=== PATIENT | male | born 1950 | race Caucasian/White ===

== ENCOUNTER 2017-02-24 11:14 | Emergency (ER) | payer MEDICARE, OTHER ==
[~2017-02-24 11:14] MED LIST: ASPI81TA82 PO; ATOR40TA49 PO; HYDR-2768 PO; METF500 PO; METO50TA PO
[2017-02-24 11:21] VITALS: BP 190/83; PULSE 98; RESP 20; TEMP 98.5; O2SAT 97
--- NOTE | 2017-02-24 12:37 | PD ---
HPI Chief Complaint: Skin Problem Time Seen by Provider: 12:25 Travel History International Travel<30 days: No Contact w/Intl Traveler<30days: No Traveled to known affect area: No History of Present Illness HPI 67-year-old male with PMH of DM presents to the ED for evaluation of 1 week history of reddened, "lump" in the left groin. Patient states that it started out as a small pimple after he shaved his genital area. He states that he didn' t think anything about it but over time it is gotten worse. He tried to squeeze it a few times with no improvement of symptoms. He denies fever, chills , nausea, vomiting, dysuria, scrotal pain, perineal pain. He denies history of MRSA. He is never had anything like this before. PFSH Past Medical History Cardiac Catheterization: Yes High Cholesterol: Yes Chest Pain: Yes Coronary Artery Disease: Yes Diminished Hearing: No GERD: Yes Hypertension: Yes Myocardial Infarction: Yes (x2) Tetanus Vaccination: > 5 Years Influenza Vaccination: No Past Surgical History Coronary Artery Bypass Graft: Yes (bypass ?) Coronary Stent: Yes (x2) Social History Alcohol Use: No Tobacco Use: Yes (02/11 PPD) Substance Use: No Allergies-Medications (Allergen,Severity, Reaction): Coded Allergies: No Known Allergies (Verified Adverse Reaction, Unknown, 02/24/17) Reported Meds & Prescriptions Reported Meds & Active Scripts Active Keflex (Cephalexin) 500 Mg Cap 500 Mg PO Q8H Bactrim DS (Sulfamethoxazole-Trimethoprim) 800-160 Mg Tab 1 Tab PO BID Review of Systems Except as stated in HPI: all other systems reviewed are Neg Physical Exam Narrative GENERAL: Well-nourished, well-developed pleasant male in no acute distress. SKIN: Focused skin assessment warm/dry. SKIN: There is an indurated area in the left groin which measures about 2 cm in diameter. It is fluctuant but there is no pointing or drainage. There is a zone of inflammation around it but no lymphangitis. HEAD: Normocephalic. EYES: No scleral icterus. No injection or drainage. NECK: Supple, trachea midline. No JVD or lymphadenopathy. CARDIOVASCULAR: Regular rate and rhythm without murmurs, gallops, or rubs. RESPIRATORY: Breath sounds equal bilaterally. No accessory muscle use. GASTROINTESTINAL: Abdomen soft, non-tender, nondistended. MUSCULOSKELETAL: No cyanosis, or edema. GENITOURINARY: Circumcised. Testes descended bilaterally without evidence of rotation. No scrotal pain. No perineal pain. No lesions or erythema. No urethral discharge. BACK: Nontender without obvious deformity. No CVA tenderness. Data Data Last Documented VS Vital Signs Date Time Temp Pulse Resp B/P (MAP) Pulse Ox O2 Delivery O2 Flow Rate FiO2 02/24/17 12:18 16 02/24/17 11:21 98.5 98 190/83 (118) 97 Orders Orders Lidocaine 1% Inj (Xylocaine 1% Inj) (02/24/17 12:45) Abscess Culture And Gram Stain (02/24/17 12:37) Ed Discharge Order (02/24/17 13:29) [facility] Medical Decision Making Medical Screen Exam Complete: Yes Emergency Medical Condition: Yes Differential Diagnosis Furuncle versus carbuncle versus abscess versus cellulitis versus Catalina's gangrene other Narrative Course 67-year-old male with PMH of DM presents to the ED for evaluation of 1 week history of reddened, "lump" in the left groin. Patient states that it started out as a small pimple after he shaved his genital area. He denies history of MRSA. Vitals reviewed. Physical exam are consistent with abscess. I&D was performed. Please my procedure note for details. Patient is prescribed Bactrim and Keflex. He is instructed to take every pill until the antibiotics are all gone, use warm compresses to help relieve pain, OTC medications as needed. He is instructed to return to the ED in 2 days for packing removal, sooner for worsening symptoms, otherwise follow up with his primary care provider. He is stable and discharged home. Procedures Procedure Narrative INCISION AND DRAINAGE OF ABSCESS: The area was prepped and was sterilely draped. A subcutaneous wheal of 1 % Xylocaine with a total number 3 mL was used to anesthetize the area properly. A number 11 scalpel was used to make a 1.25-cm incision across the area of the abscess. The abscess was drained, complex loculations were broken down, and irrigated with normal saline. Cultures were obtained. Quarter inch iodoform packing was placed in the wound. Sterile dressing applied. Patient advised to have packing removed in two days. Diagnosis Primary Impression: Abscess Referrals: Primary Care Physician Patient Instructions: Abscess Incision and Drainage (DC), General Instructions Additional Instructions: Rest, hydrate. Do not change the dressing for 48 hours. Take the antibiotics as they are prescribed, even if your symptoms resolve. Utilize [id number] pain medications, as described on the label, as needed. Return to the ED in 2 days for wound recheck and packing removal. Return to the ED for any urgent or emergent medical condition. Med/Other Pt SpecificInfo: Prescription(s) given Scripts Cephalexin (Keflex) 500 Mg Cap 500 MG PO Q8H for Infection, #30 CAP 0 Refills Prov: Judy Nuñez MD 02/24/17 Sulfamethoxazole-Trimethoprim (Bactrim DS) 800-160 Mg Tab 1 TAB PO BID for Infection, #14 TAB 0 Refills Prov: Judy Nuñez MD 02/24/17 Disposition: 01 DISCHARGE HOME Condition: Stable Lisa Abernathy Feb 24, 2017 12:37
[2017-02-24] MEDS ORDERED: LIDOCAINE HCL 1% 20 ML VIAL INFIL ONE (12:45)
[2017-02-24] MEDS ORDERED: CEPH-460 PO (13:29)
[2017-02-24] MEDS ORDERED: BACT800T5 PO (13:29)
== END 2017-02-24 13:42 | disposition home or self-care (01) ==
LOC: PHEFT 11:14
DX: L02.214 Cutaneous abscess of groin (principal); B96.89 Other specified bacterial agents as the cause of diseases classified elsewhere; I10 Essential (primary) hypertension; E78.00 Pure hypercholesterolemia, unspecified; I25.10 Atherosclerotic heart disease of native coronary artery without angina pectoris; K21.9 Gastro-esophageal reflux disease without esophagitis; I25.2 Old myocardial infarction; E11.9 Type 2 diabetes mellitus without complications; F17.210 Nicotine dependence, cigarettes, uncomplicated; Z95.1 Presence of aortocoronary bypass graft; Z95.5 Presence of coronary angioplasty implant and graft
CPT/HCPCS: 10060; 10061; 86403; 87070; 87185; 87205

== ENCOUNTER 2017-02-26 12:28 | Emergency (ER) | payer MEDICARE ==
[~2017-02-26] VITALS: Ht 180.3 cm; Wt 73.7 kg
[~2017-02-26 12:28] MED LIST changes: -ASPI81TA82 PO; -ATOR40TA49 PO; +BACT800T5 PO; +CEPH-460 PO; -HYDR-2768 PO; -METF500 PO; -METO50TA PO
[2017-02-26 12:33] VITALS: BP 189/86; PULSE 90; RESP 18; TEMP 98.6; O2SAT 97
[2017-02-26] MEDS ORDERED: METR-1 PO (12:45)
[2017-02-26] MEDS ORDERED: CIPR-9 PO (12:45)
--- NOTE | 2017-02-26 12:49 | PD ---
HPI Chief Complaint: Skin Problem Time Seen by Provider: 12:39 Travel History International Travel<30 days: No Contact w/Intl Traveler<30days: No Traveled to known affect area: No History of Present Illness HPI 67-year-old male presents for wound recheck. He was seen here on August 24 with a left-sided scrotal abscess. Incision and drainage was performed. He was told to return today for wound recheck. He reports that the packing fell out when he was changing the bandages 2 days ago. He reports significant improvement in his symptoms. Denies fevers or chills. No other complaints. PFSH Past Medical History Cardiac Catheterization: Yes High Cholesterol: Yes Chest Pain: Yes Coronary Artery Disease: Yes Diminished Hearing: No GERD: Yes Hypertension: Yes Myocardial Infarction: Yes (x2) Past Surgical History Coronary Artery Bypass Graft: Yes (bypass ?) Coronary Stent: Yes (x2) Social History Alcohol Use: No Tobacco Use: Yes (/2 PPD) Substance Use: No Allergies-Medications (Allergen,Severity, Reaction): Coded Allergies: No Known Allergies (Verified Adverse Reaction, Unknown, 02/26/17) Reported Meds & Prescriptions Reported Meds & Active Scripts Active Flagyl (Metronidazole) 500 Mg Tab 500 Mg PO BID 7 Days Cipro (Ciprofloxacin HCl) 500 Mg Tab 500 Mg PO BID 7 Days Keflex (Cephalexin) 500 Mg Cap 500 Mg PO Q8H Bactrim DS (Sulfamethoxazole-Trimethoprim) 800-160 Mg Tab 1 Tab PO BID Review of Systems General / Constitutional: No: Fever, Chills Skin: Positive Other (positive for soft tissue swelling, pain, drainage) Physical Exam Narrative GENERAL: Well-nourished male in no acute distress SKIN: Warm and dry. CARDIOVASCULAR: Regular rate and rhythm. No murmur appreciated. RESPIRATORY: No accessory muscle use. Clear to auscultation. Breath sounds equal bilaterally. GASTROINTESTINAL: Abdomen soft, non-tender, nondistended. Hepatic and splenic margins not palpable. : There is no area of induration with incision wound noted on the medial proximal left scrotum. There is a little bit of yellow purulent drainage. Data Data Last Documented VS Vital Signs Date Time Temp Pulse Resp B/P (MAP) Pulse Ox O2 Delivery O2 Flow Rate FiO2 02/26/17 12:33 98.6 90 18 189/86 (120) 97 MDM Medical Decision Making Medical Screen Exam Complete: Yes Emergency Medical Condition: Yes Medical Record Reviewed: Yes Differential Diagnosis Wound recheck, cellulitis, abscess, fourniers gangrene Narrative Course The patient's symptoms are improving. It appears that the patient's initial wound culture report reveals anaerobic gram-negative rods. He was prescribed Bactrim and Keflex which will be discontinued. He will be discharged with Cipro and Flagyl. Discussed signs and symptoms that would warrant returning to the emergency room. Diagnosis Primary Impression: Encounter for wound re-check Additional Instructions: Quit taking the Bactrim and Keflex that you were prescribed 2 days ago. Take the new antibiotics as prescribed. Warm compresses 10-15 minutes at a time several times a day. Return for new or worsening symptoms. Med/Other Pt SpecificInfo: Prescription(s) given, Wound Care Scripts Metronidazole (Flagyl) 500 Mg Tab 500 MG PO BID for Infection for 7 Days, #14 TAB 0 Refills Prov: Christiano Marcelo MD 02/26/17 Ciprofloxacin (Cipro) 500 Mg Tab 500 MG PO BID for Infection for 7 Days, #14 TAB 0 Refills Prov: Christiano Marcelo MD 02/26/17 Disposition: 01 DISCHARGE HOME Condition: Stable Darío Strickland Feb 26, 2017 12:49
== END 2017-02-26 13:17 | disposition home or self-care (01) ==
LOC: PHEFT 12:28
DX: N49.2 Inflammatory disorders of scrotum (principal); E78.00 Pure hypercholesterolemia, unspecified; I10 Essential (primary) hypertension; I25.2 Old myocardial infarction; F17.200 Nicotine dependence, unspecified, uncomplicated; Z48.817 Encounter for surgical aftercare following surgery on the skin and subcutaneous tissue; Z86.79 Personal history of other diseases of the circulatory system; Z87.19 Personal history of other diseases of the digestive system
CPT/HCPCS: 99281

== ENCOUNTER 2017-04-21 15:26 | Inpatient (IN) | payer MEDICARE, MEDICAID ==
[~2017-04-21] VITALS: Ht 182.9 cm; Wt 73.0 kg
[~2017-04-21 15:26] MED LIST changes: +CIPR-9 PO; +METR-1 PO
[2017-04-21 16:27] VITALS: BP 156/73; PULSE 98; RESP 22; TEMP 99.1; O2SAT 97
[2017-04-21] MEDS ORDERED: SODIUM CHLOR 0.9% 1000 ML INJ 1,000 ML IV ONE (17:45)
[2017-04-21] MEDS ORDERED: SODIUM CHLORIDE 0.9% FLUSH 10 ML FLUSH IVF PRN (17:45)
[2017-04-21 17:53] VITALS: O2SAT 97
[2017-04-21 18:26] LABS: AUTOMATED NEUTROPHIL # 14.7 TH/MM3 (1.8-7.7); BASOPHIL % 0.2 % (0.0-2.0); EOSINOPHIL % 0.1 % (0.0-4.0); HEMATOCRIT 51.5 % (39.0-51.0); HEMOGLOBIN 15.7 GM/DL (13.0-17.0); LYMPH % 4.3 % (9.0-44.0); LYMPHOCYTE # 0.7 TH/MM3 (1.0-4.8); MEAN CELL VOLUME 98.2 FL (80.0-100.0); MEAN CORPUSCULAR HGB CONC 30.5 % (32.0-36.0); MEAN PLATELET VOLUME 10.2 FL (7.0-11.0); MONO % 5.3 % (0.0-8.0); MONOCYTE # 0.9 TH/MM3 (0-0.9); NEUT % 90.1 % (16.0-70.0); PLATELET COUNT 205 TH/MM3 (150-450); RED BLOOD COUNT 5.24 MIL/MM3 (4.50-5.90); RED CELL DISTRIBUTION WIDTH 15.3 % (11.6-17.2); WHITE BLOOD COUNT 16.3 TH/MM3 (4.0-11.0)
--- NOTE | 2017-04-21 18:29 | RADRPT ---
EXAM DATE/TIME: 04/21/2017 18:10 [facility] COMPARISON: No previous studies available for comparison. INDICATIONS : Chest pain. MEDICAL HISTORY : None. SURGICAL HISTORY : CABG. ENCOUNTER: Initial ACUITY: 1 day PAIN SCORE: Non-responsive. LOCATION: Bilateral chest FINDINGS: No infiltrate, effusion or pneumothorax demonstrated. Heart size within normal limits. Patient has had previous median sternotomy and CABG. CONCLUSION: No evidence of acute cardiopulmonary disease. Ash Mason MD on April 21, 2017 at 18:26 Board Certified Radiologist. This report was verified electronically.
--- NOTE | 2017-04-21 18:39 | RADRPT ---
EXAM DATE/TIME: 04/21/2017 18:29 [facility] COMPARISON: No previous studies available for comparison. INDICATIONS : Weakness RADIATION DOSE: 42.14 CTDIvol (mGy) MEDICAL HISTORY : Hypertension. Diabetes SURGICAL HISTORY : CABG ENCOUNTER: Initial ACUITY: 1 day PAIN SCALE: 6/10 LOCATION: cranial TECHNIQUE: Multiple contiguous axial images were obtained of the head. Using automated exposure control and adj ustment of the mA and/or kV according to patient size, radiation dose was kept as low as reasonably a chievable to obtain optimal diagnostic quality images. DICOM format image data is available electro nically for review and comparison. FINDINGS: CEREBRUM: The ventricles are normal for age. No evidence of midline shift, mass lesion, hemorrhage or acute in farction. No extra-axial fluid collections are seen. POSTERIOR FOSSA: The cerebellum and brainstem are intact. The 4th ventricle is midline. The cerebellopontine angle i s unremarkable. EXTRACRANIAL: The visualized portion of the orbits is intact. SKULL: The calvaria is intact. No evidence of skull fracture. CONCLUSION: Normal noncontrast head CT. Ash Mason MD on April 21, 2017 at 18:37 Board Certified Radiologist. This report was verified electronically.
--- NOTE | 2017-04-21 18:42 | PD ---
HPI Chief Complaint: General Weakness Time Seen by Provider: 17:40 Travel History International Travel<30 days: No Contact w/Intl Traveler<30days: No Traveled to known affect area: No History of Present Illness HPI 67 YO M presents to the ED via EMS for evaluation of 1 week history of decreased appetite and decreased thirst. The patient states that he has become weak in the last few days. He endorses "a little" SOB. He states that his mouth feels dry, despite increased fluid intake. He is confused, alert only to self. He denies swallowing difficulties. He denies headache, CP, palpitations, abd pain, N/V, dysuria, changes in bowel habits. PFSH Past Medical History Cardiac Catheterization: Yes High Cholesterol: Yes Chest Pain: Yes Coronary Artery Disease: Yes Diabetes: Yes Patient Takes Glucophage: No Diminished Hearing: No GERD: Yes Hypertension: Yes Immunizations Current: Yes Myocardial Infarction: Yes (x2) Past Surgical History Coronary Artery Bypass Graft: Yes Coronary Stent: Yes (x2) Other Surgery: No Social History Alcohol Use: No Tobacco Use: Yes (1/2 PPD) Substance Use: No Allergies-Medications (Allergen,Severity, Reaction): Coded Allergies: No Known Allergies (Verified Adverse Reaction, Unknown, 04/21/17) Reported Meds & Prescriptions Reported Meds & Active Scripts Active Flagyl (Metronidazole) 500 Mg Tab 500 Mg PO BID 7 Days Cipro (Ciprofloxacin HCl) 500 Mg Tab 500 Mg PO BID 7 Days Keflex (Cephalexin) 500 Mg Cap 500 Mg PO Q8H Bactrim DS (Sulfamethoxazole-Trimethoprim) 800-160 Mg Tab 1 Tab PO BID Review of Systems ROS Limitations: Altered Mental Status, Other: Except as stated in HPI: all other systems reviewed are Neg Physical Exam Exam Limitations: Altered Mental Status Narrative GENERAL: Well-nourished, well-developed male in no acute distress. SKIN: Focused skin assessment warm/dry. HEAD: Normocephalic. EYES: No scleral icterus. No injection or drainage. NECK: Supple, trachea midline. No JVD or lymphadenopathy. CARDIOVASCULAR: Regular rate and rhythm without murmurs, gallops, or rubs. RESPIRATORY: Breath sounds clear and equal bilaterally. No accessory muscle use. GASTROINTESTINAL: Abdomen soft, non-tender, nondistended. Hypoactive bowel sounds. MUSCULOSKELETAL: No cyanosis, or edema. Moves extremities spontaneously. NEUROLOGICAL: Awake, confused. Alert to self only. Does not follow commands. Slurred speech. BACK: Nontender without obvious deformity. No CVA tenderness. Data Data Last Documented VS Vital Signs Date Time Temp Pulse Resp B/P (MAP) Pulse Ox O2 Delivery O2 Flow Rate FiO2 04/21/17 20:13 102 20 202/85 (124) 100 Nasal Cannula 2.00 04/21/17 16:27 99.1 Orders Orders Electrocardiogram (04/21/17 17:40) Complete Blood Count With Diff (04/21/17 17:40) Comprehensive Metabolic Panel (04/21/17 17:40) Magnesium (Mg) (04/21/17 17:40) B-Type Natriuretic Peptide (04/21/17 17:40) Ckmb (Isoenzyme) Profile (04/21/17 17:40) Troponin I (04/21/17 17:40) Act Partial Throm Time (Ptt) (04/21/17 17:40) Prothrombin Time / Inr (Pt) (04/21/17 17:40) Chest, Single Ap (04/21/17 17:40) Sodium Chlor 0.9% 1000 Ml Inj (Ns 1000 M (04/21/17 17:45) Ct Brain W/O Iv Contrast(Rout) (04/21/17 ) Beta Hydroxybutyrate (Acetone) (04/21/17 17:40) CKMB (04/21/17 18:10) CKMB% (04/21/17 18:10) Blood Gas Venous (Vbg) (04/21/17 19:28) Insulin Human Regular Inj (Novolin R Inj (04/21/17 19:45) Insulin Regular (Iv Infusion) (Novolin R (04/21/17 21:00) Potassium Chlor 20 Meq Premix (Kcl 20 Me (04/21/17 19:45) Potassium Chlor 20 Meq Premix (Kcl 20 Me (04/21/17 19:45) Potassium Chlor 20 Meq Premix (Kcl 20 Me (04/21/17 19:45) Potassium Chlor 20 Meq Premix (Kcl 20 Me (04/21/17 19:45) Sodium Chlor 0.9% 1000 Ml Inj (Ns 1000 M (04/21/17 19:59) Dext 5%-Nacl 0.9% 1000 Ml Inj (D5w-Ns 10 (04/21/17 19:59) Hydralazine Inj (Apresoline Inj) (04/21/17 20:15) Restraints Non-Violent MARICARMEN.Q3H (04/21/17 20:09) Admit Order (Ed Use Only) (04/21/17 20:22) Labs Laboratory Tests Test 04/21/17 18:10 White Blood Count 16.3 TH/MM3 Red Blood Count 5.24 MIL/MM3 Hemoglobin 15.7 GM/DL Hematocrit 51.5 % Mean Corpuscular Volume 98.2 FL Mean Corpuscular Hemoglobin 30.0 PG Mean Corpuscular Hemoglobin Concent 30.5 % Red Cell Distribution Width 15.3 % Platelet Count 205 TH/MM3 Mean Platelet Volume 10.2 FL Neutrophils (%) (Auto) 90.1 % Lymphocytes (%) (Auto) 4.3 % Monocytes (%) (Auto) 5.3 % Eosinophils (%) (Auto) 0.1 % Basophils (%) (Auto) 0.2 % Neutrophils # (Auto) 14.7 TH/MM3 Lymphocytes # (Auto) 0.7 TH/MM3 Monocytes # (Auto) 0.9 TH/MM3 Eosinophils # (Auto) 0.0 TH/MM3 Basophils # (Auto) 0.0 TH/MM3 CBC Comment DIFF FINAL Differential Comment Prothrombin Time 11.0 SEC Prothromb Time International Ratio 1.1 RATIO Activated Partial Thromboplast Time 19.5 SEC Blood Urea Nitrogen 109 MG/DL Creatinine 3.46 MG/DL Random Glucose 992 MG/DL Total Protein 6.3 GM/DL Albumin 2.9 GM/DL Calcium Level 8.6 MG/DL Magnesium Level 3.8 MG/DL Alkaline Phosphatase 134 U/L Aspartate Amino Transf (AST/SGOT) 12 U/L Alanine Aminotransferase (ALT/SGPT) 16 U/L Total Bilirubin 0.3 MG/DL Sodium Level 153 MEQ/L Potassium Level 3.8 MEQ/L Chloride Level 111 MEQ/L Carbon Dioxide Level 13.4 MEQ/L Anion Gap 29 MEQ/L Estimat Glomerular Filtration Rate 18 ML/MIN Total Creatine Kinase 299 U/L Creatine Kinase MB 4.8 NG/ML Troponin I 0.04 NG/ML B-Type Natriuretic Peptide 41 PG/ML B-Hydroxybutyrate 11.90 MMOL/L MDM Medical Decision Making Medical Screen Exam Complete: Yes Emergency Medical Condition: Yes Differential Diagnosis DKA versus HHUS versus metabolic derangement versus other Narrative Course 67 YO M presents to the ED via EMS for evaluation of 1 week history of decreased appetite and decreased thirst. The patient states that he has become weak in the last few days. He endorses "a little" SOB. He states that his mouth feels dry, despite increased fluid intake. He is confused, alert only to self. He denies swallowing difficulties. He denies headache, CP, palpitations, abd pain, N/V, dysuria, changes in bowel habits. Temp 99.1, pulse 98, BP 153/73, O2 sats 97% on room air on presentation. On exam this is a thin male in no acute distress. He is unable to follow commands though he does answer questions appropriately. Speech is slurred. No appreciable M/R/G. Chest CTAB. Abdomen soft and nontender. IV was established. Patient was administered 1 L normal saline. Montalvo catheter was inserted. The patient's came to the bedside and states that he has been drinking a lot of fluid and somewhat confused lately. She states that he does not regularly see a physician. She states that he does not take metformin or any other glucose controlling medications EKG rate 92, sinus rhythm. WA interval 154, QRS 105, QTC 449 ms. Normal axis. No acute ST changes. Reviewed by Dr. Joya. CXR: No evidence of acute cardiopulmonary disease per radiology read. Cardiac enzymes: CK-MB 4.8. Troponin 0.04. CBC: WBC 16.3. Hemoglobin 15.7. CMP: BUN 109, creatinine 3.46. Glucose 992. Potassium 3.8. Magnesium 3.8. Beta hydroxybutyrate 11.9. CT brain: Negative per radiology read. VBG: PH 7.194. Bicarbonate 12.5. PCO2 33.9. Patient was administered second liter normal saline. Potassium replacement was initiated. Patient was administered 7 units of insulin bolus and insulin drip was initiated. On recheck the patient has pulled his Montalvo out. Will place the patient in soft restraints and replace the Montalvo. Systolic BP 190 on recheck. Patient was administered 10 mg IV hydralazine. Plan to admit to the CICU. I spoke with the residents who agreed to accept the patient to the medicine service under Dr. Nadira Mckeon. Please see medicine notes for disposition. Lisa Abernathy Apr 21, 2017 18:42
[2017-04-21 18:47] LABS: INTERNATIONAL NORMALIZED RATIO 1.1 RATIO
[2017-04-21 19:12] LABS: ALBUMIN 2.9 GM/DL (3.4-5.0); ALT (GPT) 16 U/L (12-78); AST (GOT) 12 U/L (15-37); BICARBONATE 13.4 MEQ/L (21.0-32.0); BLOOD UREA NITROGEN 109 MG/DL (7-18); CALCIUM 8.6 MG/DL (8.5-10.1); CHLORIDE 111 MEQ/L (98-107); CREATININE 3.46 MG/DL (0.60-1.30); GLOMERULAR FILTRATION RATE 18 ML/MIN (>89); MAGNESIUM 3.8 MG/DL (1.5-2.5); SODIUM (NA) 153 MEQ/L (136-145); TOTAL BILIRUBIN ADULT 0.3 MG/DL (0.2-1.0); TOTAL PROTEIN 6.3 GM/DL (6.4-8.2)
[2017-04-21 19:16] LABS: GLUCOSE,RANDOM 992 MG/DL (74-106)
[2017-04-21 19:20] LABS: ALKALINE PHOSPHATASE 134 U/L (45-117); TROPONIN I 0.04 NG/ML (0.02-0.05)
[2017-04-21] MEDS ORDERED: POTASSIUM CHLOR 20 MEQ PREMIX 100 ML IV PRN ×13 (19:45→21:15)
[2017-04-21] MEDS ORDERED: INSULIN HUMAN REGULAR 1,000 UNITS/10 ML VIAL IV PUSH ONE ×2 (19:45)
[2017-04-21] MEDS ORDERED: INSULIN REGULAR (IV INFUSION) 100 UNITS in SODIUM CHLORIDE 0.9% INJ 99 ML IV PRN ×4 (19:45→21:15)
[2017-04-21] MEDS: DEXT 5%-NACL 0.9% 1000 ML INJ 1,000 ML IV SCH ×2 (19:59→21:01)
[2017-04-21] MEDS: SODIUM CHLOR 0.9% 1000 ML INJ 1,000 ML IV SCH ×2 (19:59→23:59)
[2017-04-21 20:13] VITALS: BP 202/85; PULSE 102; RESP 20; O2SAT 100
[2017-04-21] MEDS ORDERED: hydrALAZINE HCL 20 MG/ML VIAL IV PUSH ONE (20:15)
--- NOTE | 2017-04-21 20:40 | HHI.HP ---
HPI Service Family Medicine Primary Care Physician Unknown Admission Diagnosis HHS Diagnoses: International Travel<30 Days: No Contact w/Intl Traveler<30days: No Known Affected Area: No History of Present Illness Patient is a 67-year-old Male brought in by EMS with 1 wk history of decreased appetite according to ED. No family member present at bedside. Patient alert to self, able to state he is in [place] but not oriented to year and not able to provide adequate history. He was to answer yes or no to certain questions. He answered to "no" when asked if he was in any kind of pain. He keeps repeating he wants water. In the ED the patient received 2 boluses of normal saline, insulin bolus 1 and hydralazine for elevated BP. Review of Systems ROS Limitations: Clinical Condition, Altered Mental Status Respiratory: DENIES: Shortness of breath Cardiovascular: DENIES: Chest pain Musculoskeletal: DENIES: Back pain Neurologic: DENIES: Localized weakness, Tremor Past Family Social History Past Medical History DM HTN Past Surgical History CABG with 2 stent placement Reported Medications Reported Meds & Active Scripts Active Flagyl (Metronidazole) 500 Mg Tab 500 Mg PO BID 7 Days Cipro (Ciprofloxacin HCl) 500 Mg Tab 500 Mg PO BID 7 Days Keflex (Cephalexin) 500 Mg Cap 500 Mg PO Q8H Bactrim DS (Sulfamethoxazole-Trimethoprim) 800-160 Mg Tab 1 Tab PO BID Allergies: Coded Allergies: No Known Allergies (Verified Adverse Reaction, Unknown, 04/21/17) Family History limited due to clinical condition. Social History per chart review alcohol and illicit drug use: denies smokin/2 PPD Physical Exam Vital Signs Vital Signs Date Time Temp Pulse Resp B/P (MAP) Pulse Ox O2 Delivery O2 Flow Rate FiO2 04/21/17 20:13 102 20 202/85 (124) 100 Nasal Cannula 2.00 04/21/17 17:53 97 Nasal Cannula 2.00 04/21/17 16:27 99.1 98 22 156/73 (100) 97 Physical Exam GENERAL: This is a cachectic male, laying in bed, NAD. SKIN: No rashes, ecchymoses or lesions. Cool and dry. No sacral ulcers noted. HEAD: Atraumatic. Normocephalic. EYES: Pupils equal round and reactive. Extraocular motions intact. No scleral icterus. No injection or drainage. ENT: Nose without bleeding, purulent drainage or septal hematoma. Throat without erythema, tonsillar hypertrophy or exudate. Uvula midline. Airway patent. Mucus membrane dry. NECK: Trachea midline. No JVD or lymphadenopathy. Supple, nontender, no meningeal signs. CARDIOVASCULAR: Regular rate and rhythm without murmurs, gallops, or rubs. RESPIRATORY: Clear to auscultation. Breath sounds equal bilaterally. No wheezes , rales, or rhonchi. GASTROINTESTINAL: Abdomen soft, non-tender, nondistended. No hepato-splenomegaly , or palpable masses. No guarding. MUSCULOSKELETAL: Extremities without clubbing, cyanosis, or edema. No joint tenderness, effusion, or edema noted. No calf tenderness. Negative Homans sign bilaterally. NEUROLOGICAL: Cranial nerves II through XII intact. Motor and sensory grossly within normal limits. Laboratory Laboratory Tests Test 04/21/17 18:10 White Blood Count 16.3 Red Blood Count 5.24 Hemoglobin 15.7 Hematocrit 51.5 Mean Corpuscular Volume 98.2 Mean Corpuscular Hemoglobin 30.0 Mean Corpuscular Hemoglobin Concent 30.5 Red Cell Distribution Width 15.3 Platelet Count 205 Mean Platelet Volume 10.2 Neutrophils (%) (Auto) 90.1 Lymphocytes (%) (Auto) 4.3 Monocytes (%) (Auto) 5.3 Eosinophils (%) (Auto) 0.1 Basophils (%) (Auto) 0.2 Neutrophils # (Auto) 14.7 Lymphocytes # (Auto) 0.7 Monocytes # (Auto) 0.9 Eosinophils # (Auto) 0.0 Basophils # (Auto) 0.0 CBC Comment DIFF FINAL Differential Comment Prothrombin Time 11.0 Prothromb Time International Ratio 1.1 Activated Partial Thromboplast Time 19.5 Blood Urea Nitrogen 109 Creatinine 3.46 Random Glucose 992 Total Protein 6.3 Albumin 2.9 Calcium Level 8.6 Magnesium Level 3.8 Alkaline Phosphatase 134 Aspartate Amino Transf (AST/SGOT) 12 Alanine Aminotransferase (ALT/SGPT) 16 Total Bilirubin 0.3 Sodium Level 153 Potassium Level 3.8 Chloride Level 111 Carbon Dioxide Level 13.4 Anion Gap 29 Estimat Glomerular Filtration Rate 18 Total Creatine Kinase 299 Creatine Kinase MB 4.8 Troponin I 0.04 B-Type Natriuretic Peptide 41 B-Hydroxybutyrate 11.90 Result Diagram: 3/12/18 1810 3/12/18 1810 Imaging Last Impressions Chest X-Ray 04/21/17 1740 Signed Impressions: Service Date/Time: Friday, April 21, 2017 18:10 - CONCLUSION: No evidence of acute cardiopulmonary disease. Ash Mason MD Head CT 04/21/17 0000 Signed Impressions: Service Date/Time: Friday, April 21, 2017 18:29 - CONCLUSION: Normal noncontrast head CT. MD Aman Calderon VTE Risk Assessment Aman VTE Risk Assessment: Mod/High Risk (score >= 2) VTE Pharm Contraindication: will hold with for 24hrs until hematuria clears after pt removed boyer traumatically Caprini Risk Assessment Model Point Value = 1 Point Value = 2 Point Value = 3 Point Value = 5 Age 41-60 Minor surgery BMI > 25 kg/m2 Swollen legs Varicose veins or History of unexplained or recurrent spontaneous Oral contraceptives or hormone replacement Sepsis (< 1 month) Serious lung disease, including pneumonia (< 1 month) Abnormal pulmonary function Acute myocardial infarction Congestive heart failure (< 1 month) History of inflammatory bowel disease Medical patient at bed rest Age 61-74 Arthroscopic surgery Major open surgery (> 45 min) Laparoscopic surgery (> 45 min) Malignancy Confined to bed (> 72 hours) Immobilizing plaster cast Central venous access Age >= 75 History of VTE Family history of VTE Factor V Leiden Prothrombin [id number] Lupus anticoagulant Anticardiolipin antibodies Elevated serum homocysteine Heparin-induced thrombocytopenia Other congenital or acquired thrombophilia Stroke (< 1 month) Elective arthroplasty Hip, pelvis, or leg fracture Acute spinal cord injury (< 1 month) Prophylaxis Regimen Total Risk Factor Score Risk Level Prophylaxis Regimen 0-1 Low Early ambulation 2 Moderate Order ONE of the following: *Sequential Compression Device (SCD) *Heparin 5000 units SQ BID 3-4 Higher Order ONE of the following medications: *Heparin 5000 units SQ TID *Enoxaparin/Lovenox 40 mg SQ daily (WT < 150 kg, CrCl > 30 mL/min) *Enoxaparin/Lovenox 30 mg SQ daily (WT < 150 kg, CrCl > 10-29 mL/min) *Enoxaparin/Lovenox 30 mg SQ BID (WT < 150 kg, CrCl > 30 mL/min) AND/OR *Sequential Compression Device (SCD) 5 or more Highest Order ONE of the following medications: *Heparin 5000 units SQ TID (Preferred with Epidurals) *Enoxaparin/Lovenox 40 mg SQ daily (WT < 150 kg, CrCl > 30 mL/min) *Enoxaparin/Lovenox 30 mg SQ daily (WT < 150 kg, CrCl > 10-29 mL/min) *Enoxaparin/Lovenox 30 mg SQ BID (WT < 150 kg, CrCl > 30 mL/min) AND *Sequential Compression Device (SCD) Assessment and Plan Assessment and Plan Patient is 67 year old Male with PMHx of HTN and DM presenting to ED via EVAC due to 1 wk hx of decreased po intake. Patient found to be altered, hypertensive with blood glucose greater than 900, elevated anion gap of 29, beta hydroxy of 11.9. Patient admitted to management of DKA. Discussed Condition With SDW Dr. Hernandez WDW Dr. Mckeon Problem List: (1) DKA (diabetic ketoacidoses) ICD Codes: E13.10 - Other specified diabetes mellitus with ketoacidosis without coma Status: Acute Plan: Patient found to have elevated blood sugar >900, anion gap 29-, Beta- hydroxybutyrate-11.9 Patient with altered mental status due to medical condition. Denies CP or pain. O2 saturations of 100% stable on 3 L NC. Afebrile with leukocytosis (WBC 16.3). In the ED the patient received 2 boluses of normal saline, insulin bolus 1 and hydralazine for elevated BP. EKG: Sinus rhythm, left atrial enlargement and left ventricular hypertrophy. CXR: no acute disease Head CT: Normal Initial VBG: pH 7.19, pCO2 34, pO2 55, HCO3 13 -c/w IVF hydration, patient placed on insulin drip -Neuro checks, telemetry -Bedside glucose checks -monitor I/Os -Plan to transition patient to diabetic diet once anion gap has closed. -f/u serial electrolyte levels, anion gap, Beta-hydroxybutyrate -f/u repeat VBG -f/u UA, alcohol level, UDS -f/u am labs (2) Diabetes mellitus ICD Codes: E11.9 - Diabetes mellitus Status: Chronic Plan: -f/u A1c -see plan above (3) Hypertension ICD Codes: I10 - Hypertension Status: Acute Plan: Patient received hydralazine 10mg IV x1 in the ED with appropriate response. Patient denies taking medication for his HTN -hydralazine PRN per HTN protocol SBP>= 180/ DBP >= 100 -continue to monitor BP and consider adding medication for HTN management terminal carman (4) Boyer catheter status ICD Codes: Z92.89 - Personal history of other medical treatment Status: Acute Plan: Patient traumatically pulled out boyer catheter resulting in hematuria. -will continue to monitor -hold of lovenox/heparin DVT ppx for 24hrs until resolution of hematuria (5) Nutrition, metabolism, and development symptoms ICD Codes: R63.8 - Other symptoms and signs concerning food and fluid intake Plan: Fluids: s/p 2L NS fluid bolus in the ED, c/w IVF NS 0.9% @ 250mls/hr Electrolyte: continue to monitor, replete as needed Nutrition: NPO until resolution on DKA DVT ppx: SCDs Physician Certification 2 Midnight Certification Type: Admission for Inpatient Services Order for Inpatient Services The services are ordered in accordance with Medicare regulations or non- Medicare payer requirements, as applicable. In the case of services not specified as inpatient-only, they are appropriately provided as inpatient services in accordance with the 2-midnight benchmark. Estimated LOS (days): 3 days is the estimated time the patient will need to remain in the hospital, assuming treatment plan goals are met and no additional complications. Post-Hospital Plan: Amanda Hilton MD, R1 Apr 21, 2017 20:40
[2017-04-21] MEDS ORDERED: SODIUM CHLORIDE 0.9% FLUSH 10 ML FLUSH IV FLUSH PRN (20:45)
--- NOTE | 2017-04-21 20:56 | PD ---
Physical Exam Narrative I, Dr. Joya, have reviewed the advance practice practitioner's documentation and am in agreement, met with the patient face to face, made the diagnosis, and the medical decision making was done by me. *My assessment and Findings: DKA vs. HHOC vs. dehydration 67yo M with DM noncompliant with medication here with increase thirst and not feeling well. Pt has Kussmaul breathing and appears dehydrated. Pt given NS IVF x2. Labs reviewed, leukocytosis at 16.3. Glucose elevated at 992. Hypernatremia at 153 secondary to dehydration. Anion gap increased at 29 with CO2 at 13.4. BUN/creatinine at 109/3.46. This is new for patient. Troponin negative. Pt started on insulin drip and potassium replacement. K is 3.8. b- Hydroxybutrate is elevated at 11.90. CXR negative. CT brain negative. Pt is hypertensive, hydralazine given. Pt also have blood in his meatus after he pullled out his boyer. Pt admitted to resident physician's service. Data Data Last Documented VS Vital Signs Date Time Temp Pulse Resp B/P (MAP) Pulse Ox O2 Delivery O2 Flow Rate FiO2 04/21/17 20:13 102 20 202/85 (124) 100 Nasal Cannula 2.00 04/21/17 16:27 99.1 Orders Orders Electrocardiogram (04/21/17 17:40) Complete Blood Count With Diff (04/21/17 17:40) Comprehensive Metabolic Panel (04/21/17 17:40) Magnesium (Mg) (04/21/17 17:40) B-Type Natriuretic Peptide (04/21/17 17:40) Ckmb (Isoenzyme) Profile (04/21/17 17:40) Troponin I (04/21/17 17:40) Act Partial Throm Time (Ptt) (04/21/17 17:40) Prothrombin Time / Inr (Pt) (04/21/17 17:40) Chest, Single Ap (04/21/17 17:40) Sodium Chlor 0.9% 1000 Ml Inj (Ns 1000 M (04/21/17 17:45) Ct Brain W/O Iv Contrast(Rout) (04/21/17 ) Beta Hydroxybutyrate (Acetone) (04/21/17 17:40) CKMB (04/21/17 18:10) CKMB% (04/21/17 18:10) Blood Gas Venous (Vbg) (04/21/17 19:28) Insulin Human Regular Inj (Novolin R Inj (04/21/17 19:45) Insulin Regular (Iv Infusion) (Novolin R (04/21/17 21:00) Potassium Chlor 20 Meq Premix (Kcl 20 Me (04/21/17 19:45) Potassium Chlor 20 Meq Premix (Kcl 20 Me (04/21/17 19:45) Potassium Chlor 20 Meq Premix (Kcl 20 Me (04/21/17 19:45) Potassium Chlor 20 Meq Premix (Kcl 20 Me (04/21/17 19:45) Sodium Chlor 0.9% 1000 Ml Inj (Ns 1000 M (04/21/17 19:59) Dext 5%-Nacl 0.9% 1000 Ml Inj (D5w-Ns 10 (04/21/17 19:59) Hydralazine Inj (Apresoline Inj) (04/21/17 20:15) Restraints Non-Violent MARICARMEN.Q3H (04/21/17 20:09) Admit Order (Ed Use Only) (04/21/17 20:22) Labs Laboratory Tests Test 04/21/17 18:10 White Blood Count 16.3 TH/MM3 Red Blood Count 5.24 MIL/MM3 Hemoglobin 15.7 GM/DL Hematocrit 51.5 % Mean Corpuscular Volume 98.2 FL Mean Corpuscular Hemoglobin 30.0 PG Mean Corpuscular Hemoglobin Concent 30.5 % Red Cell Distribution Width 15.3 % Platelet Count 205 TH/MM3 Mean Platelet Volume 10.2 FL Neutrophils (%) (Auto) 90.1 % Lymphocytes (%) (Auto) 4.3 % Monocytes (%) (Auto) 5.3 % Eosinophils (%) (Auto) 0.1 % Basophils (%) (Auto) 0.2 % Neutrophils # (Auto) 14.7 TH/MM3 Lymphocytes # (Auto) 0.7 TH/MM3 Monocytes # (Auto) 0.9 TH/MM3 Eosinophils # (Auto) 0.0 TH/MM3 Basophils # (Auto) 0.0 TH/MM3 CBC Comment DIFF FINAL Differential Comment Prothrombin Time 11.0 SEC Prothromb Time International Ratio 1.1 RATIO Activated Partial Thromboplast Time 19.5 SEC Blood Urea Nitrogen 109 MG/DL Creatinine 3.46 MG/DL Random Glucose 992 MG/DL Total Protein 6.3 GM/DL Albumin 2.9 GM/DL Calcium Level 8.6 MG/DL Magnesium Level 3.8 MG/DL Alkaline Phosphatase 134 U/L Aspartate Amino Transf (AST/SGOT) 12 U/L Alanine Aminotransferase (ALT/SGPT) 16 U/L Total Bilirubin 0.3 MG/DL Sodium Level 153 MEQ/L Potassium Level 3.8 MEQ/L Chloride Level 111 MEQ/L Carbon Dioxide Level 13.4 MEQ/L Anion Gap 29 MEQ/L Estimat Glomerular Filtration Rate 18 ML/MIN Total Creatine Kinase 299 U/L Creatine Kinase MB 4.8 NG/ML Troponin I 0.04 NG/ML B-Type Natriuretic Peptide 41 PG/ML B-Hydroxybutyrate 11.90 MMOL/L [facility] Supervised Visit with ALICE: Yes Critical Care Narrative Aggregate critical care time was 45 minutes. Time to perform other separately billable procedures was not included in the critical care time. My time did not include minutes spent treating any other patients simultaneously or on activities that did not directly contribute to the patient's treatment. The services I provided to this patient were to treat and/or prevent clinically significant deterioration that could result in: cardiovascular collapse or . I provided critical care services requiring my management, as noted below: Chart data review, documentation time, medication orders and management, vital sign assessments/reviewing monitor data, ordering and reviewing lab tests, ordering and interpreting/reviewing x-rays and diagnostic studies, care of the patient and discussion of the patient with the admitting physicians. Diagnosis Primary Impression: DKA (diabetic ketoacidoses) Laurita Joya DO Apr 21, 2017 20:56
[2017-04-21] MEDS: SODIUM CHLORIDE 0.9% FLUSH 10 ML FLUSH IV FLUSH SCH (21:00)
[2017-04-21 21:12] VITALS: BP 175/74; PULSE 97; RESP 18; O2SAT 100
[2017-04-21] MEDS ORDERED: MISCELLANEOUS NURSING INFORMATION XX SCH (21:15)
[2017-04-21] MEDS ORDERED: CHLORHEXIDINE GLUCONATE 2 % 1 PACK (2 CLOTHS) TOP PRN (21:15)
[2017-04-21] MEDS ORDERED: SODIUM BICARBONATE 8.4% SOLN 50 MEQ/50 ML VIAL IV PUSH PRN ×2 (21:15)
[2017-04-21] MEDS ORDERED: SODIUM PHOSPHATE INJ 15 MMOL in SODIUM CHLORIDE 0.9% INJ 100 ML IV PRN (21:15)
[2017-04-21] MEDS ORDERED: POTASSIUM CHLOR 40 MEQ PREMIX 100 ML IV PRN ×2 (21:15)
[2017-04-21 23:00] VITALS: BP 159/70; PULSE 102; PULSE 99; RESP 22; TEMP 96.3; O2SAT 96
[2017-04-22] VITALS (15 sets, daily range): BP systolic 145–189; BP diastolic 66–82; PULSE 68–107; RESP 16–26; TEMP 97–97.9; O2SAT 97–99
[2017-04-22] MEDS: SODIUM CHLOR 0.9% 1000 ML INJ 1,000 ML IV SCH ×5 (00:41→09:01)
[2017-04-22] MEDS: DEXT 5%-NACL 0.9% 1000 ML INJ 1,000 ML IV SCH ×6 (00:59→12:01)
[2017-04-22 02:31] LABS: BICARBONATE 20.4 MEQ/L (21.0-32.0); CALCIUM 8.2 MG/DL (8.5-10.1); CREATININE 3.42 MG/DL (0.60-1.30); PHOSPHORUS 4.7 MG/DL (2.5-4.9)
[2017-04-22] MEDS: POTASSIUM CHLOR 20 MEQ PREMIX 100 ML IV PRN ×3 (02:48→06:19)
[2017-04-22] MEDS: hydrALAZINE HCL 20 MG/ML VIAL IV PUSH PRN (03:18)
[2017-04-22] MEDS: CHLORHEXIDINE GLUCONATE 2 % 1 PACK (2 CLOTHS) TOP SCH ×2 (04:00→22:48)
[2017-04-22] MEDS: SODIUM CHLORIDE 0.9% FLUSH 10 ML FLUSH IV FLUSH SCH ×2 (09:00→20:28)
[2017-04-22] MEDS: FAMOTIDINE 20 MG/2 ML VIAL IV PUSH SCH ×2 (09:00→20:29)
--- NOTE | 2017-04-22 12:25 | HHI.FPPN ---
Subjective Remarks No acute events overnight. Patient states he was dizzy overnight and had some abdominal pain. Patient was oriented x3. (Mango Cheung MD R1) Objective Vitals Vital Signs Date Time Temp Pulse Resp B/P (MAP) Pulse Ox O2 Delivery O2 Flow Rate FiO2 04/22/17 06:00 Nasal Cannula 2.00 04/22/17 06:00 98 04/22/17 04:00 104 04/22/17 03:00 107 26 180/78 (112) 98 04/22/17 02:00 104 04/22/17 00:00 102 04/22/17 00:00 Nasal Cannula 2.00 04/21/17 23:00 96.3 102 22 159/70 (99) 96 04/21/17 23:00 99 04/21/17 21:12 97 18 175/74 (107) 100 Nasal Cannula 2.00 04/21/17 20:13 102 20 202/85 (124) 100 Nasal Cannula 2.00 04/21/17 17:53 97 Nasal Cannula 2.00 04/21/17 16:27 99.1 98 22 156/73 (100) 97 I/O 04/21/17 04/21/17 04/21/17 04/22/17 04/22/17 04/22/17 07:00 15:00 23:00 07:00 15:00 23:00 Intake Total 2240 ml 1290 ml Output Total 500 ml Balance 2240 ml 790 ml Intake Oral 240 ml 240 ml IV Total 2000 ml 1050 ml Output Urine Total 500 ml (Mango Cheung MD R1) Result Diagram: 04/21/17 1810 04/22/17 0142 Imaging Last 48 hours Impressions Chest X-Ray 04/21/17 1740 Signed Impressions: Service Date/Time: Friday, April 21, 2017 18:10 - CONCLUSION: No evidence of acute cardiopulmonary disease. Ash Mason MD Head CT 04/21/17 0000 Signed Impressions: Service Date/Time: Friday, April 21, 2017 18:29 - CONCLUSION: Normal noncontrast head CT. Ash Mason MD Objective Remarks GENERAL: This is a cachectic male, laying in bed, NAD. SKIN: No rashes, ecchymoses or lesions. Cool and dry. No sacral ulcers noted. HEAD: Atraumatic. Normocephalic. EYES: Pupils equal round and reactive. Extraocular motions intact. No scleral icterus. No injection or drainage. ENT: Nose without bleeding, purulent drainage or septal hematoma. Throat without erythema, tonsillar hypertrophy or exudate. Uvula midline. Airway patent. NECK: Trachea midline. No JVD or lymphadenopathy. Supple, nontender, no meningeal signs. CARDIOVASCULAR: Regular rate and rhythm without murmurs, gallops, or rubs. RESPIRATORY: Clear to auscultation. Breath sounds equal bilaterally. No wheezes , rales, or rhonchi. GASTROINTESTINAL: Abdomen soft, non-tender, nondistended. No hepato-splenomegaly , or palpable masses. No guarding. MUSCULOSKELETAL: Extremities without clubbing, cyanosis, or edema. R leg is noticeably smaller compared to the L. R lower leg is fixed in an extended position with constant muscle contraction. Unable to manipulate R ankle due to contraction. NEUROLOGICAL: Cranial nerves II through XII intact. (Mango Cheung MD R1) A/P Assessment and Plan Patient is 67 year old Male with PMHx of HTN and DM presented to ED via EVAC due to 1 wk hx of decreased po intake. Patient found to be altered, hypertensive with blood glucose greater than 900, elevated anion gap of 29, beta hydroxy of 11.9. Patient admitted to management of DKA. Currently still requiring insulin drip but anion gap is closing, blood glucose has decreased into the 200's. Discharge Planning Continues to be in DKA currently. Will likely need several more days of therapy prior to discharge (Mango Cheung MD R1) Attending Attestation Pt. was seen at 0820 04-22-17 with the entire medicine team--Diamante Green, Wilma Cheung, Nico Dubose. Pt. is Irish-speaking only. Many answers nonsensical. Diffficult to get patient to explain his symptoms. He is alert and has soft restraints in place as he pulled his boyer out and had bright red bleeding from urethra. Exam findings are as noted above. I agree with the findings and the plan as documented. (Nadira Mckeon MD) Problem List: (1) DKA (diabetic ketoacidoses) ICD Codes: E13.10 - Other specified diabetes mellitus with ketoacidosis without coma Status: Acute Plan: Patient found to have elevated blood sugar >900, anion gap 29-, Beta- hydroxybutyrate-11.9 on admission Patient with altered mental status on admission - oriented x3 on 04/22. Leukocytosis of 16.3 on admission - resolved on 04/22 In the ED the patient received 2 boluses of normal saline, insulin bolus 1 and hydralazine for elevated BP. EKG: Sinus rhythm, left atrial enlargement and left ventricular hypertrophy. CXR: no acute disease Head CT: Normal Initial VBG: pH 7.19, pCO2 34, pO2 55, HCO3 13, repeat showed improvement -c/w IVF hydration, patient placed on insulin drip - follow DKA protocol -Neuro checks, telemetry -Bedside glucose checks -monitor I/Os -f/u serial electrolyte levels, anion gap, Beta-hydroxybutyrate -f/u UA, UDS -Most recent Anion gap is at 13 -Plan to transition patient to diabetic diet and SQ insulin after Anion gap is < 12 and one of the following: Beta-hydroxybutyrate less than 1 Bicarb greater than 18 -Proceed with following plan if patient is ready for transition by dinner on , otherwise wait until morning -SQ insulin regiment at that time can proceed as follows (0.5 - 0.8 units/kg/day ): Levemir 8 units BID Novolog 5 units TID w/ meals -Continue Insulin drip 1-2 hours after transition begins (2) Diabetes mellitus ICD Codes: E11.9 - Diabetes mellitus Status: Chronic Plan: -f/u A1c -see plan above (3) Hypertension ICD Codes: I10 - Hypertension Status: Acute Plan: Patient received hydralazine 10mg IV x1 in the ED with appropriate response. 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 (4) Nausea ICD Codes: R11.0 - Nausea Plan: Patient complaining of nausea, abdominal pain Ordering IV Tylenol Repeating EKG as initial EKG had borderline prolonged QT interval before ordering Zofran (5) Elevated serum creatinine ICD Codes: R79.89 - Other specified abnormal findings of blood chemistry Plan: Patient has had elevated Creatinine (ranging from 3.46 -> 3.35) No known history of CKD Also noted to have poor urinary output despite aggressive fluid replacement UA pending [facility] (6) Boyer catheter status ICD Codes: Z92.89 - Personal history of other medical treatment Status: Acute Plan: Patient traumatically pulled out boyer catheter resulting in hematuria. -will continue to monitor -hold of lovenox/heparin DVT ppx for 24hrs until resolution of hematuria (7) Nutrition, metabolism, and development symptoms ICD Codes: R63.8 - Other symptoms and signs concerning food and fluid intake Plan: Fluids: s/p 2L NS fluid bolus in the ED, c/w IVF per protocol Electrolyte: continue to monitor, replete as needed Nutrition: NPO until resolution on DKA DVT ppx: SCDs (Mango Cheung MD R1) Mango Cheung MD R1 Apr 22, 2017 12:25 Nadira Mckeon MD Apr 23, 2017 09:39
[2017-04-22 13:41] LABS: AUTOMATED NEUTROPHIL # 9.9 TH/MM3 (1.8-7.7); BASOPHIL % 0.2 % (0.0-2.0); EOSINOPHIL % 0.3 % (0.0-4.0); HEMOGLOBIN 15.8 GM/DL (13.0-17.0); LYMPH % 4.8 % (9.0-44.0); LYMPHOCYTE # 0.5 TH/MM3 (1.0-4.8); MEAN CELL VOLUME 91.5 FL (80.0-100.0); MEAN CORPUSCULAR HEMOGLOBIN 31.5 PG (27.0-34.0); MEAN CORPUSCULAR HGB CONC 34.5 % (32.0-36.0); MEAN PLATELET VOLUME 9.2 FL (7.0-11.0); MONOCYTE # 0.3 TH/MM3 (0-0.9); NEUT % 91.7 % (16.0-70.0); PLATELET COUNT 106 TH/MM3 (150-450); RED BLOOD COUNT 5.02 MIL/MM3 (4.50-5.90); RED CELL DISTRIBUTION WIDTH 14.6 % (11.6-17.2); WHITE BLOOD COUNT 10.8 TH/MM3 (4.0-11.0)
[2017-04-22 14:13] LABS: BICARBONATE 20.8 MEQ/L (21.0-32.0); BLOOD UREA NITROGEN 104 MG/DL (7-18); CALCIUM 7.4 MG/DL (8.5-10.1); CHLORIDE 128 MEQ/L (98-107); CREATININE 3.35 MG/DL (0.60-1.30); GLOMERULAR FILTRATION RATE 18 ML/MIN (>89); GLUCOSE,RANDOM 334 MG/DL (74-106); MAGNESIUM 3.3 MG/DL (1.5-2.5); PHOSPHORUS 4.3 MG/DL (2.5-4.9)
[2017-04-22 14:26] LABS: SODIUM (NA) 162 MEQ/L (136-145)
[2017-04-22 16:22] LABS: HEMOGLOBIN A1C 17.7 % (4.3-6.0)
[2017-04-22 16:28] LABS: BICARBONATE 18.8 MEQ/L (21.0-32.0); CALCIUM 7.4 MG/DL (8.5-10.1); CREATININE 3.46 MG/DL (0.60-1.30); MAGNESIUM 3.5 MG/DL (1.5-2.5); PHOSPHORUS 3.7 MG/DL (2.5-4.9)
[2017-04-22 16:57] LABS: CALCIUM-PROTEIN CORRECTED 7.7 MG/DL (8.5-10.1); TOTAL PROTEIN 6.5 GM/DL (6.4-8.2)
[2017-04-22] MEDS ORDERED: DEXT 5%-NACL 0.45% 1000 ML INJ 1,000 ML IV SCH (17:00)
[2017-04-22] MEDS ORDERED: ONDANSETRON HCL 4 MG/2 ML VIAL IV PUSH PRN (17:00)
[2017-04-22] MEDS: INSULIN ASPART 1,000 UNITS/10 ML VIAL SQ SCH (18:45)
[2017-04-22 18:55] LABS: AMORPHOUS SEDIMENT, URINE RARE; BACTERIA, URINE FEW /hpf; BILIRUBIN, URINE NEG (NEG); BLOOD, URINE LARGE (NEG); GLUCOSE,URINE 300 mg/dL (NEG); HYALINE CAST, URINE 2 /lpf (RARE); KETONE, URINE TRACE mg/dL (NEG); MUCUS URINE FEW /lpf (OCC); NITRITE,URINE NEG (NEG); SQUAMOUS EPITHELIAL CELL URINE <1 /hpf (0-5); URINE LEUKOCYTE ESTERASE SMALL (NEG)
[2017-04-22 18:57] LABS: URINE COLOR RED (YELLW/STRAW)
[2017-04-22] MEDS ORDERED: amLODIPine BESYLATE 5 MG TAB PO ONE (19:15)
--- NOTE | 2017-04-22 19:15 | PD.CONS ---
HPI Service Nephrology Consult Requested By Dr. Cheung Reason for Consult Acute and chronic kidney disease Primary Care Physician Unknown History of Present Illness Patient is a 67-year-old the male who is a poor historian he has history of diabetes, has history of kidney problems, he stopped taking his diabetic medications and came in with a blood sugar of over 900 and then diabetic ketoacidosis, he was treated with insulin drip and now IV fluids however his sodium is 162, his creatinine is 3.4, patient is unable to provide the details of kidney problems. Review of Systems Constitutional: COMPLAINS OF: Fatigue Musculoskeletal: COMPLAINS OF: Joint pain, Muscle aches Psychiatric: COMPLAINS OF: Anxiety Past Family Social History Allergies: Coded Allergies: No Known Allergies (Verified Allergy, Unknown, 04/22/17) Past Medical History Diabetes Hypertension Coronary artery disease Hyperlipidemia Past Surgical History CABG Stent placement Reported Medications Reported Meds & Active Scripts Active Flagyl (Metronidazole) 500 Mg Tab 500 Mg PO BID 7 Days Cipro (Ciprofloxacin HCl) 500 Mg Tab 500 Mg PO BID 7 Days Keflex (Cephalexin) 500 Mg Cap 500 Mg PO Q8H Bactrim DS (Sulfamethoxazole-Trimethoprim) 800-160 Mg Tab 1 Tab PO BID Active Ordered Medications Current Medications Medications (Trade) Dose Ordered Sig/Erick Route Start Time Stop Time Status Last Admin (NS Flush) 2 ml UNSCH PRN IV FLUSH 04/21/17 20:45 (NS Flush) 2 ml BID IV FLUSH 04/21/17 21:00 04/21/17 21:00 Sodium Phosphate 15 mmol/Sodium Chloride 105 ml @ 25 mls/hr UNSCH PRN IV 04/21/17 21:15 Miscellaneous Information 1 Q361D XX 04/21/17 21:15 04/22/17 03:07 (Chlorhexidine 2% Cloth) 3 pack Taper DAILY@04 TOP 04/22/17 04:00 04/18/18 03:59 (Chlorhexidine 2% Cloth) 3 pack UNSCH PRN TOP 04/21/17 21:15 (Apresoline Inj) 10 mg Q6H PRN IV PUSH 04/21/17 21:30 04/22/17 03:18 (Pepcid Inj) 20 mg Q12HR IV PUSH 04/22/17 09:00 04/22/17 09:00 Acetaminophen 100 ml @ 400 mls/hr Q6H IV 04/22/17 16:00 04/22/17 22:14 (Zofran Inj) 4 mg Q8HR PRN IV PUSH 04/22/17 17:00 (Levemir Inj) 5 units Q12HR SQ 04/22/17 21:00 (NovoLOG INJ) 5 units TIDAC SQ 04/22/17 18:45 Family History Noncontributory Social History History of smoking denies alcohol Physical Exam Vital Signs Vital Signs Date Time Temp Pulse Resp B/P (MAP) Pulse Ox O2 Delivery O2 Flow Rate FiO2 04/22/17 16:00 98 04/22/17 14:00 90 04/22/17 12:00 97.9 90 19 189/82 (117) 99 04/22/17 12:00 90 04/22/17 10:00 90 04/22/17 08:00 97.7 96 22 177/78 (111) 97 04/22/17 08:00 96 04/22/17 07:00 Nasal Cannula 2.00 04/22/17 06:00 Nasal Cannula 2.00 04/22/17 06:00 98 04/22/17 04:00 104 04/22/17 03:00 107 26 180/78 (112) 98 04/22/17 02:00 104 04/22/17 00:00 102 04/22/17 00:00 Nasal Cannula 2.00 04/21/17 23:00 96.3 102 22 159/70 (99) 96 04/21/17 23:00 99 04/21/17 21:12 97 18 175/74 (107) 100 Nasal Cannula 2.00 04/21/17 20:13 102 20 202/85 (124) 100 Nasal Cannula 2.00 Physical Exam GENERAL: Well-nourished, well-developed patient. SKIN: Warm and dry. HEAD: Normocephalic. EYES: No scleral icterus. No injection or drainage. NECK: Supple, trachea midline. No JVD or lymphadenopathy. CARDIOVASCULAR: Regular rate and rhythm without murmurs, gallops, or rubs. RESPIRATORY: Breath sounds equal bilaterally. No accessory muscle use. GASTROINTESTINAL: Abdomen soft, non-tender, nondistended. EXTREMITIES: No cyanosis, or edema. NEUROLOGICAL: Awake, alert, . Non-focal. Laboratory Laboratory Tests Test 3/12/18 19:30 04/21/17 21:30 04/21/17 23:00 04/22/17 01:42 Blood Gas Puncture Site BY RN FROM IV BY RN FROM IV Blood Gas Patient Temperature 98.6 98.6 Venous Blood pH 7.19 7.25 Venous Blood Partial Pressure CO2 34 25 Venous Blood Partial Pressure O2 55 73 Venous Blood HCO3 13 11 Venous Blood Oxygen Saturation 79 90 Venous Blood Oxygen Content 18.1 20.6 Venous Blood Base Excess -14.0 -15.2 Oxygen Delivery Device ROOM AIR NASAL CANNULA Blood Gas Liter Flow 21 3 Random Glucose 844 620 Blood Urea Nitrogen 110 Creatinine 3.42 Calcium Level 8.2 Phosphorus Level 4.7 Magnesium Level 4.0 Sodium Level 158 Potassium Level 3.1 Chloride Level 122 Carbon Dioxide Level 20.4 Anion Gap 16 Estimat Glomerular Filtration Rate 18 Test 04/22/17 12:47 04/22/17 15:46 04/22/17 17:25 White Blood Count 10.8 Red Blood Count 5.02 Hemoglobin 15.8 Hematocrit 46.0 Mean Corpuscular Volume 91.5 Mean Corpuscular Hemoglobin 31.5 Mean Corpuscular Hemoglobin Concent 34.5 Red Cell Distribution Width 14.6 Platelet Count 106 Mean Platelet Volume 9.2 Neutrophils (%) (Auto) 91.7 Lymphocytes (%) (Auto) 4.8 Monocytes (%) (Auto) 3.0 Eosinophils (%) (Auto) 0.3 Basophils (%) (Auto) 0.2 Neutrophils # (Auto) 9.9 Lymphocytes # (Auto) 0.5 Monocytes # (Auto) 0.3 Eosinophils # (Auto) 0.0 Basophils # (Auto) 0.0 CBC Comment DIFF FINAL Differential Comment Blood Urea Nitrogen 104 101 Creatinine 3.35 3.46 Random Glucose 334 265 Total Protein 6.0 6.5 Calcium Level 7.4 7.4 Phosphorus Level 4.3 3.7 Magnesium Level 3.3 3.5 Sodium Level 162 162 Potassium Level 4.9 4.2 Chloride Level 128 132 Carbon Dioxide Level 20.8 18.8 Anion Gap 13 11 Estimat Glomerular Filtration Rate 18 18 Hemoglobin A1c 17.7 Protein Corrected Calcium 8.0 7.7 B-Hydroxybutyrate 0.65 Urine Color RED Urine Turbidity HAZY Urine pH 6.0 Urine Specific [place] 1.015 Urine Protein 100 Urine Glucose (UA) 300 Urine Ketones TRACE Urine Occult Blood LARGE Urine Nitrite NEG Urine Bilirubin NEG Urine Urobilinogen LESS THAN 2.0 Urine Leukocyte Esterase SMALL Urine RBC 72 Urine WBC 52 Urine Squamous Epithelial Cells <1 Urine Amorphous Sediment RARE Urine Bacteria FEW Urine Hyaline Casts 2 Urine Mucus FEW Microscopic Urinalysis Comment CATH-CULTURE IND Urine Opiates Screen NEG Urine Barbiturates Screen NEG Urine Amphetamines Screen NEG Urine Benzodiazepines Screen NEG Urine Cocaine Screen NEG Urine Cannabinoids Screen NEG Date/Time Source Procedure Growth Status 04/22/17 17:25 Urine Catheterized Urine Urine Culture Pending Received Result Diagram: 04/22/17 1247 04/22/17 1546 Imaging Last Impressions Chest X-Ray 04/21/17 1740 Signed Impressions: Service Date/Time: Friday, April 21, 2017 18:10 - CONCLUSION: No evidence of acute cardiopulmonary disease. Ash Mason MD Head CT 04/21/17 0000 Signed Impressions: Service Date/Time: Friday, April 21, 2017 18:29 - CONCLUSION: Normal noncontrast head CT. Ash Mason MD Assessment and Plan Problem List: (1) Acute renal failure ICD Codes: N17.9 - Acute kidney failure, unspecified Plan: Patient has chronic kidney disease and acute renal failure creatinine 3.4 Continue to hydrate this sodium is 162 Give 5% albumin Give 1/4. Saline at 84 cc an hour He was treated for DKA (2) CKD (chronic kidney disease) stage 3, GFR 30-59 ml/min ICD Codes: N18.3 - Chronic kidney disease, stage 3 (moderate) Plan: Get baseline kidney ultrasound (3) Diabetes ICD Codes: E11.9 - Type 2 diabetes mellitus without complications Plan: History of DKA continue to monitor (4) Hypertension ICD Codes: I10 - Hypertension Status: Acute Plan: Add amlodipine 5 mg daily (5) DKA (diabetic ketoacidoses) ICD Codes: E13.10 - Other specified diabetes mellitus with ketoacidosis without coma Status: Acute Plan: Resolved (6) Hypernatremia ICD Codes: E87.0 - Hyperosmolality and hypernatremia Plan: Likely dehydration try colloids and hypotonic solutions Natacha Suarez MD Apr 22, 2017 19:15
--- NOTE | 2017-04-22 20:08 | EKG ---
Date Performed: 04/21/2017 Time Performed: 18:00:53 PTAGE: 67 years EKG: Sinus rhythm LEFT ATRIAL ENLARGEMENT LEFT VENTRICULAR HYPERTROPHY AND ST-T CHANGE ABNORMAL ECG PREVIOUS TRACING : 06/28/2010 05.05 Since the previous tracing, no significant change noted DOCTOR: Yakelin Greene Interpretating Date/Time 04/22/2017 20:06:43
[2017-04-22] MEDS: ALBUMIN 5% INJ 500 ML IV SCH (20:28)
[2017-04-22] MEDS ORDERED: INSULIN DETEMIR 100 UNITS/ML VIAL SQ SCH (21:00)
[2017-04-22] MEDS: ACETAMINOPHEN 1000 MG/100 ML 100 ML IV SCH ×2 (22:00→22:06)
[2017-04-22] MEDS: SODIUM CHLORIDE 23.4% INJ 38.5 MEQ in WATER STERILE FOR INJ 1,000 ML IV SCH (22:05)
[2017-04-22 22:59] LABS: CALCIUM 7.5 MG/DL (8.5-10.1); CREATININE 3.66 MG/DL (0.60-1.30); MAGNESIUM 3.3 MG/DL (1.5-2.5); PHOSPHORUS 3.7 MG/DL (2.5-4.9)
--- NOTE | 2017-04-22 23:20 | RADRPT ---
EXAM DATE/TIME: 04/22/2017 21:27 [facility] COMPARISON: No previous studies available for comparison. INDICATIONS : Flank pain. MEDICAL HISTORY : Hypertension. Diabetes. SURGICAL HISTORY : CABG. ENCOUNTER: Initial ACUITY: 1 day PAIN SCORE: 02/19 LOCATION: Bilateral flank MEASUREMENTS: RIGHT KIDNEY: 11.3 x 5.8 x 5.9 cm LEFT KIDNEY: 10.4 x 5.4 x 6.6 cm FINDINGS: RIGHT KIDNEY: Renal cortex is normal in thickness and echotexture. No hydronephrosis, stone, or mass. LEFT KIDNEY: Renal cortex is normal in thickness and echotexture. An approximately 19 mm cyst of the mid zone. No hydronephrosis, stone, or solid appearing mass. BLADDER: Decompressed with a [place] catheter. CONCLUSION: No obstructive uropathy or other acute abnormality. Incidentally seen benign-appearing left renal cys t. Ash Mason MD on April 22, 2017 at 23:16 Board Certified Radiologist. This report was verified electronically.
[2017-04-23] VITALS (12 sets, daily range): BP systolic 145–191; BP diastolic 73–81; PULSE 86–103; RESP 18–25; TEMP 97–98.3; O2SAT 96–98
[2017-04-23] MEDS ORDERED: GLUCAGON 1 MG/ML VIAL OTHER PRN ×2 (00:15→23:30)
[2017-04-23] MEDS ORDERED: DEXTROSE 50% IN WATER 50 ML VIAL(D50) IV PUSH PRN ×2 (00:15→23:30)
[2017-04-23] MEDS: hydrALAZINE HCL 20 MG/ML VIAL IV PUSH PRN (01:05)
[2017-04-23] MEDS: INSULIN ASPART SUPPLEMENTAL SCALE SQ SCH ×5 (01:15→23:30)
[2017-04-23] MEDS: ALBUMIN 5% INJ 500 ML IV SCH ×2 (06:03→19:00)
[2017-04-23 06:31] LABS: ALBUMIN 2.9 GM/DL (3.4-5.0); BICARBONATE 15.5 MEQ/L (21.0-32.0); CALCIUM 7.4 MG/DL (8.5-10.1); CALCIUM-PROTEIN CORRECTED 7.7 MG/DL (8.5-10.1); CREATININE 4.12 MG/DL (0.60-1.30); TOTAL BILIRUBIN ADULT 0.9 MG/DL (0.2-1.0); TOTAL PROTEIN 6.6 GM/DL (6.4-8.2)
[2017-04-23] MEDS: INSULIN ASPART 1,000 UNITS/10 ML VIAL SQ SCH ×3 (08:00→17:00)
[2017-04-23] MEDS ORDERED: INSULIN ASPART SUPPLEMENTAL SCALE SQ SCH (08:00)
[2017-04-23] MEDS: SODIUM CHLORIDE 23.4% INJ 38.5 MEQ in WATER STERILE FOR INJ 1,000 ML IV SCH (08:02)
--- NOTE | 2017-04-23 08:48 | HHI.FPPN ---
Subjective Remarks No acute events overnight. Patient tolerating a diet and was transitioned to subcutaneous insulin on a 04/22. No evidence of hypoglycemia overnight. Patient has no complaints of pain today. He states he had no prior knowledge of having diabetes. No chest pain, shortness of breath, nausea or vomiting. (Mango Cheung MD R1) Objective Vitals Vital Signs Date Time Temp Pulse Resp B/P (MAP) Pulse Ox O2 Delivery O2 Flow Rate FiO2 04/23/17 07:00 Nasal Cannula 2.00 98 04/23/17 06:00 92 04/23/17 04:00 97.0 86 21 169/79 (109) 96 04/23/17 04:00 86 04/23/17 02:00 88 04/23/17 00:00 98.3 89 22 177/76 (109) 97 04/23/17 00:00 89 04/22/17 22:00 96 04/22/17 20:00 68 04/22/17 19:00 Nasal Cannula 2.00 97 04/22/17 19:00 97.0 94 18 149/68 (95) 97 04/22/17 18:00 90 04/22/17 16:00 98 04/22/17 16:00 97.9 90 16 145/66 (92) 98 04/22/17 14:00 90 04/22/17 12:00 97.9 90 19 189/82 (117) 99 04/22/17 12:00 90 04/22/17 10:00 90 I/O 04/22/17 04/22/17 04/22/17 04/23/17 04/23/17 04/23/17 07:00 15:00 23:00 07:00 15:00 23:00 Intake Total 1290 ml 250 ml 650 ml 120 ml Output Total 500 ml 525 ml 400 ml Balance 790 ml 250 ml 125 ml -280 ml Intake Oral 240 ml 100 ml 120 ml IV Total 1050 ml 250 ml 550 ml Output Urine Total 500 ml 525 ml 400 ml # Bowel Movements 0 (Mango Cheung MD R1) Result Diagram: 04/22/17 1247 04/23/17 0505 Objective Remarks GENERAL: This is a cachectic male, laying in bed, NAD. SKIN: No rashes, ecchymoses or lesions. Cool and dry. No sacral ulcers noted. HEAD: Atraumatic. Normocephalic. EYES: Pupils equal round and reactive. Extraocular motions intact. No scleral icterus. No injection or drainage. ENT: Nose without bleeding, purulent drainage or septal hematoma. Throat without erythema, tonsillar hypertrophy or exudate. Uvula midline. Airway patent. NECK: Trachea midline. No JVD or lymphadenopathy. Supple, nontender, no meningeal signs. CARDIOVASCULAR: Regular rate and rhythm without murmurs, gallops, or rubs. RESPIRATORY: Clear to auscultation. Breath sounds equal bilaterally. No wheezes , rales, or rhonchi. GASTROINTESTINAL: Abdomen soft, non-tender, nondistended. No hepato-splenomegaly , or palpable masses. No guarding. MUSCULOSKELETAL: Extremities without clubbing, cyanosis, or edema. R leg is noticeably smaller compared to the L. R lower leg is fixed in an extended position with constant muscle contraction. Unable to manipulate R ankle due to contraction. : Boyer catheter in place, dried blood at the meatus of the penis but no purulent discharge. Minimally edematous NEUROLOGICAL: Cranial nerves II through XII intact. (Mango Cheung MD R1) A/P Assessment and Plan Patient is 67 year old Male with PMHx of HTN and DM presented to ED via EVAC due to 1 wk hx of decreased po intake. Patient found to be altered, hypertensive with blood glucose greater than 900, elevated anion gap of 29, beta hydroxy of 11.9. Patient admitted to management of DKA. Transitioned to SQ insulin on 04/22 and currently no longer in DKA. Patient found to have multiple lab abnormalities involving the kidney and liver. Nephrology consulted. Further workup pending. Discharge Planning No longer in DKA but now having multiple lab abnormalities involving the liver and kidney. Discharge pending evaluation/improvement - likely several days (Mango Cheung MD R1) Attending Attestation Pt seen at approximately 11 a.m. today after having discussed pt. with Drs. Cheung and Aleksander. Pt. noted to have significant elevation of transaminases over initial on admission. PT is recommending rehab at discharge. No complaints, resting comfortably. I agree with exam as noted above. I agree with the plan to date. (Nadira Mckeon MD) Problem List: (1) DKA (diabetic ketoacidoses) ICD Codes: E13.10 - Other specified diabetes mellitus with ketoacidosis without coma Status: Acute Plan: Patient found to have elevated blood sugar >900, anion gap 29-, Beta- hydroxybutyrate-11.9 on admission Patient with altered mental status on admission - oriented x3 on 04/22. Leukocytosis of 16.3 on admission - resolved on 04/22 In the ED the patient received 2 boluses of normal saline, insulin bolus 1 and hydralazine for elevated BP. EKG: Sinus rhythm, left atrial enlargement and left ventricular hypertrophy. CXR: no acute disease Head CT: Normal Initial VBG: pH 7.19, pCO2 34, pO2 55, HCO3 13, repeat showed improvement -c/w IVF hydration at 02/13 NS 84 mL/hr -Neuro checks, telemetry -Bedside glucose checks -monitor I/Os Transitioned to SQ insulin regiment and diabetic diet on evening of 04/22 Levemir 8 units BID Novolog 5 units TID w/ meals Low dose SS for next 24 hours, will adjust basal/prandial insulin based off what is required -No longer currently in DKA (2) Diabetes mellitus ICD Codes: E11.9 - Diabetes mellitus Status: Chronic Plan: A1c 17.7 -see plan above (3) UTI (urinary tract infection) ICD Codes: N39.0 - Urinary tract infection, site not specified Plan: UA showing large occult blood, small leukocyte esterase, 72 RBC, 52 WBC Cultures growing gram neg loly -Starting Rocephin 1 gram IV daily (4) Hypertension ICD Codes: I10 - Hypertension Status: Acute Plan: Patient received hydralazine 10mg IV x1 in the ED with appropriate response. 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 (5) Elevated serum creatinine ICD Codes: R79.89 - Other specified abnormal findings of blood chemistry Plan: Patient has had elevated Creatinine (increasing from 3.35 on 04/22 to 4.45 on 04/23) No known history of CKD Also noted to have poor urinary output despite aggressive fluid replacement UA showing large occult blood, small leukocyte esterase, 72 RBC, 52 WBC Patient traumatically removed Boyer catheter on admission, catheter currently in place with no purulent discharge appreciated Consulted Nephrology - appreciated recommendations (6) Transaminitis ICD Codes: R74.0 - Nonspecific elevation of levels of transaminase and lactic acid dehydrogenase [LDH] Plan: Patient noted to have elevated liver enzymes AST 2101 ALT 335 Both were within normal limits on admission Repeated CMP to rule out lab error, liver enzymes still elevated Hepatitis panel pending, acetaminophen level pending (7) Hyperkalemia ICD Codes: E87.5 - Hyperkalemia Plan: Potassium elevated at 5.5 (up from 4.2 on 04/22) Patient on Telemetry, no arrhythmias noted Nephrology already on board, will follow recs and manage medically if needed (8) Hypernatremia ICD Codes: E87.0 - Hyperosmolality and hypernatremia Plan: Sodium 156, improved from 165 on 04/22 Corrected to 158 Patient on 02/13 NS at 84mL/hr Continue to monitor (9) Nausea ICD Codes: R11.0 - Nausea Plan: Patient complained of nausea, abdominal pain on 04/22 - currently resolved Gave one dose of IV Tylenol on 04/22 - discontinued in setting of transaminitis Repeat EKG had normal QT interval - Zofran as needed for nausea. (10) Boyer catheter status ICD Codes: Z92.89 - Personal history of other medical treatment Status: Acute Plan: Patient traumatically pulled out boyer catheter resulting in hematuria. -will continue to monitor -hold of lovenox/heparin DVT ppx for 24hrs until resolution of hematuria (11) Nutrition, metabolism, and development symptoms ICD Codes: R63.8 - Other symptoms and signs concerning food and fluid intake Plan: Fluids: 1/4 NS at 84 mL/hr Electrolyte: continue to monitor, replete as needed Nutrition: Diabetic diet DVT ppx: SCDs (Mango Cheung MD R1) Mango Cheung MD R1 Apr 23, 2017 08:48 Nadira Mckeon MD Apr 23, 2017 16:30
[2017-04-23] MEDS: SODIUM CHLORIDE 0.9% FLUSH 10 ML FLUSH IV FLUSH SCH ×2 (09:00→23:30)
[2017-04-23] MEDS ORDERED: amLODIPine BESYLATE 5 MG TAB PO SCH (09:00)
[2017-04-23] MEDS: INSULIN DETEMIR 100 UNITS/ML VIAL SQ SCH ×2 (09:49)
[2017-04-23] MEDS: FAMOTIDINE 20 MG/2 ML VIAL IV PUSH SCH (09:49)
[2017-04-23] MEDS ORDERED: LIDOCAINE HCL 1% PF 5 ML SYRINGE OTHER ONE (12:00)
[2017-04-23] MEDS ORDERED: NEOSTIGMINE 5 MG/5 ML SYRINGE IV PUSH ONE (12:00)
[2017-04-23] MEDS ORDERED: NORMOSOL R INJ 2,000 ML IV ONE (12:00)
[2017-04-23] MEDS ORDERED: PROPOFOL 200 MG/20 ML AMP IV ONE (12:00)
[2017-04-23] MEDS ORDERED: ONDANSETRON HCL 4 MG/2 ML VIAL IV ONE (12:00)
[2017-04-23] MEDS ORDERED: ePHEDrine/NS 25 MG/5 ML SYRINGE IV ONE (12:00)
[2017-04-23] MEDS ORDERED: DEXAMETHASONE SOD PHOS 4 MG/ML VIAL IV ONE (12:00)
[2017-04-23] MEDS ORDERED: ROCURONIUM INJ 50 MG/5 ML SYRINGE IV PUSH ONE (12:00)
[2017-04-23] MEDS ORDERED: PHENYLEPH/NS 1000 MCG/10 ML SYR IV ONE (12:00)
[2017-04-23] MEDS ORDERED: GLYCOPYRROLATE 1 MG/5 ML SYRINGE IV PUSH ONE (12:00)
[2017-04-23 13:03] LABS: ALBUMIN 3.2 GM/DL (3.4-5.0); ALKALINE PHOSPHATASE 139 U/L (45-117); ALT (GPT) 335 U/L (12-78); AST (GOT) 2101 U/L (15-37); BICARBONATE 17.2 MEQ/L (21.0-32.0); BLOOD UREA NITROGEN 121 MG/DL (7-18); CALCIUM 7.5 MG/DL (8.5-10.1); CHLORIDE 127 MEQ/L (98-107); CREATININE 4.45 MG/DL (0.60-1.30); GLOMERULAR FILTRATION RATE 13 ML/MIN (>89); GLUCOSE,RANDOM 354 MG/DL (74-106); TOTAL PROTEIN 6.5 GM/DL (6.4-8.2)
[2017-04-23 13:10] LABS: SODIUM (NA) 156 MEQ/L (136-145)
--- NOTE | 2017-04-23 14:22 | HHI.NPPN ---
Subjective History of Present Illness 67 year old with Hypertension,DKA, DM, ARF Objective Data Data Vital Signs Date Time Temp Pulse Resp B/P (MAP) Pulse Ox O2 Delivery O2 Flow Rate FiO2 04/23/17 12:25 98 04/23/17 12:00 90 04/23/17 12:00 98.1 90 18 145/79 (101) 97 04/23/17 10:00 88 04/23/17 08:00 98.2 88 25 191/81 (117) 98 04/23/17 08:00 88 04/23/17 07:00 Nasal Cannula 2.00 98 04/23/17 06:00 92 04/23/17 04:00 97.0 86 21 169/79 (109) 96 04/23/17 04:00 86 04/23/17 02:00 88 04/23/17 00:00 98.3 89 22 177/76 (109) 97 04/23/17 00:00 89 04/22/17 22:00 96 04/22/17 20:00 68 04/22/17 19:00 Nasal Cannula 2.00 97 04/22/17 19:00 97 Nasal Cannula 2.00 04/22/17 19:00 97.0 94 18 149/68 (95) 97 04/22/17 18:00 90 04/22/17 16:00 98 04/22/17 16:00 97.9 90 16 145/66 (92) 98 -: 04/22/17 1247 04/23/17 1110 Microbiology 04/22/17 Urine Culture - Preliminary, Resulted Gram Negative Michael Physical Exam General Appearance: Well Developed, Well Nourished Neck Neck Exam: Neck Supple Pulmonary Resp Exam: Clear Bilaterally, Breath Sounds Equal Cardiology CV Exam: Regular, Normal Sinus Rhythm Gastrointestinal/Abdomen GI Exam: Soft, Non-Tender, Bowel Sounds Present Extremeties Extremities Exam: No Edema Assessment/Plan Problem List: (1) Acute renal failure ICD Codes: N17.9 - Acute kidney failure, unspecified Plan: Patient has chronic kidney disease and acute renal failure creatinine 4.4 Continue to hydrate this sodium is 156 Given 5% albumin Given 1/4. Saline at 84 cc an hour, and this was stopped He was treated for DKA has hematuria pulled catheter now with elevated liver enzymes, Pancreatitis, ? Autoimmune process check c reactive protein C3 C4 sed rate Stop 5% albumin by tomorrow (2) CKD (chronic kidney disease) stage 3, GFR 30-59 ml/min ICD Codes: N18.3 - Chronic kidney disease, stage 3 (moderate) Plan: kidney ultrasound left renal cyst (3) Diabetes ICD Codes: E11.9 - Type 2 diabetes mellitus without complications Plan: History of DKA continue to monitor (4) Hypertension ICD Codes: I10 - Hypertension Status: Acute Plan: Add amlodipine 5 mg daily (5) DKA (diabetic ketoacidoses) ICD Codes: E13.10 - Other specified diabetes mellitus with ketoacidosis without coma Status: Acute Plan: Resolved (6) Hypernatremia ICD Codes: E87.0 - Hyperosmolality and hypernatremia Plan: Likely dehydration try colloids and hypotonic solutions Natacha Suarez MD Apr 23, 2017 14:22
[2017-04-23] MEDS ORDERED: cefTRIAXone INJ 1,000 MG in SODIUM CHLORIDE 0.9% INJ 100 ML IV SCH (15:00)
[2017-04-23] MEDS ORDERED: ASPIRIN 81 MG CHEW TAB PO SCH (15:15)
--- NOTE | 2017-04-23 15:26 | HHI.PR ---
Addendum to Inpatient Note Addendum Reason: Additional Documentation Additional Information ADDENDUM Subjective: Patient re-evaluated at bedside now that is present Per : prior to ED arrival on 04/21 he was fully functional, no slurred speech , no issues with ambulation. She found him down at approximately 1pm on 04/21 after leaving for work around 7am. He had slurred speech then and inability to ambulate. Was not on any medications for over 5 years, previously on metformin Confirms that only surgical history is stents remotely and CABG 10-15 years ago No known allergies Patient states his right leg hurts all over. Appetite is decreased, no nausea or vomiting, no chest pain. Objective: VS reviewed: afebrile, BP 145/79, P 90 but telemetry shows one episode of bradycardia during painful movement Patient is hiccuping CV: No murmurs, pulses palpated at posterior tibial area bilaterally but more thready at right LE RESP: clear to auscultation with no wheezes Skin: Right leg is cold to touch below knee and muscle atrophy, left leg warm to touch MSK: Patient cannot lift either leg against gravity but strength is slightly better in LLE. Normal flexion both hips. Normal flexion both needs. No evidence of fracture or joint effusion. The right lower extremity is significant for significant muscle atrophy compared to left, discoloration consistent with 5 inch bruise on right inner thigh, and skin discoloration. The muscles are tight from the knee down. A/P: 67 yo male initially admitted with HHS and AMS after being found down for up to 5 hours at home, now noted by that slurred speech which has been evident entire admission is new since his fall on 04/21. No previous CVA workup. Complicated clinically and unclear disposition given worsening electrolytes, kidney and liver function at this time. Will keep patient in ISC for now and monitor closely. Possible transfer to med-surg floor tomorrow. Will continue workup as noted below. * Neuro: intermittent AMS, possible CVA * Patient's states that his baseline is totally normal. Suspect possible CVA prior to ED arrival * Last normal appears to be 7AM on 04/21/2017 per * Will initiate CVA workup with brain MRI/MRA noncontrast, Carotid US, echocardiogram, PT/OT/speech evaluations. CT head negative in ED. * No previous CVA history * Lipid profile, A1c ordered * Will initiate atorvastatin if indicated * Rehab at discharge * May require aspirin but will hold given kidney dysfx * CV: Hx CABG remotely, Intermittent bradycardia, HTN, RLE vasculopathy? * Will continue telemetry * Will get echocardiogram to further assess cardiac structure and function * Start ASA 162 mg daily today * HTN now being treated with amlodipine * Vascular surgery consulted * GI: acute transaminitis * Unclear etiology as LFTs were normal on admission. * Was given Ofirmev x 1 on 04/22. Tylenol level is <2 today * Patient is asymptomatic, no jaundice or alcoholic history * Transaminases 2000s today. Bilirubin normal * Added rhabdomyolysis workup, lipase, GGT to AM labs * Abdomen US ordered * Gastroenterology consulted, appreciate recommendations * FEN/RENAL: hyponatremia, hyperkalemia, CHANELL vs CKD, hypoalbuminemia, hypercalcemia, hyperchloremic metabolic acidosis * Creatinine 4.45, eGFR 13: differential includes CKD, CHANELL. * Hypernatremia: patient on d5 1/2 NS but sodium still elevated, suspect dehydration * Abnormal K: currently hyperkalemic, possibly related to CHANELL complicated by CKD * Urine prot/creat ratio 5.06, very elevated, suspect diabetic nephropathy * Renal US normal * Nephrology consulted, appreciate recommendations * Albumin 5% given q12hr IV per nephrology * Discontinue IVF 1/4NS at 75cc/hr and start IV sterile water with 50meq bicarb /L at 75cc/hr AND 200ml free water PO q6hr, recheck CMP at 1800 today and daily * ID: UTI complicated by male gender, race, urethral injury * Leukocytosis on admission resolved * VS not showing signs of systemic infection * CXR on admission normal * Patient removed catheter traumatically on 04/21/2017 * Catheter replaced and in place since admission * Given renal and liver disease, consulted Pharmacist director executive communications who recommended Levaquin, will give 750mg IV q 24hr and await sensitivities of urine culture, showing GNRs at this time * Follow urine culture * HEME: urethral bleeding 2/2 traumatic catheter removal, rhabdomyolysis? * Patient with dark urine, now suspect this may be myoglobin rather than blood * Patient was not placed on anticoagulation at time of admission 04/21 due to urethral bleeding (due to traumatic removal of catheter by the patient). * Uric acid, CPK, total CK ordered * ENDO: Diabetes * Hyperglycemia: HHS on admission, resolved, persistent hyperglycemia being managed with basal and prandial insulin with supplement short-acting insulin, monitor closely for hyperglycemia. * A1c 17.7 * Insulin: Levemir 8 units BID, Novolog 5 units TIDAC, low dose supplemental Novolog scale. Will adjust total daily insulin dose as indicated for goal fasting <140, goal post-prandial < 180 * inclusion paraeducator, raimann machine operator consulted * TSH ordered * PROPH: anticoagulation held due to traumatic urethral injury on 04/[address] Auguste (vascular surgery), Dr. Nadira Mckeon ( attending) and Dr. Jeff Cheung (PGY1) (Roma Armijo MD) Additional Information Pt. seen again this afternoon by Dr. Armijo with present. See documentation above. Have consulted Vascular Surgery and GI due to atrophic, cool right lower extremity with frozen ankle and marked elevation in transaminases, respectively. Appreciate assistance. Discussed at length with Dr. Armijo. I agree with the ongoing plan. (Nadira Mckeon MD) Roma Armijo MD Apr 23, 2017 15:26 Nadira Mckeon MD Apr 23, 2017 16:33
--- NOTE | 2017-04-23 15:44 | PD.CONS ---
HPI History of Present Illness This is a 67 year old M with medical history significant for CABG x 4 in 2010, DM, previously on Metformin, however stopped taking the Metformin quite some time ago because has not seen a PCP. Pt is a very poor historian and is able to answer some questions that he can not. However, most of the history obtained through chart review. Per pts , pt has been increasingly thirsty over the past week, states has not eaten much solid food and has only been drinking water and eating soup. She brought him into the ER on Friday where he was found to be in DKA. Currently admitted to ICU. Our service has been consulted to evaluate pt for transaminitis. LFTs were WNL on admission, now AST -2101 ALT-335 Alk phos-139 T bili-1. Pt denies history of liver issues. No recent abdominal imaging. Pt denies ETOH, illicit drug use, not taking any prescription medications, denies taking any OTC medications. Last EGD noted in chart 2008 --> Hiatal hernia. Gastric AVMs S/P cautery. Erosive gastritis. Pt reports previous colonoscopy done here, not seen in chart. (Yesi Edmond) PFSH Past Medical History CABG x 4 DM Past Surgical History CABG x 4 (Yesi Edmond) Coded Allergies: No Known Allergies (Verified Allergy, Unknown, 04/22/17) Social History Denies ETOH Smoke 1 PPD Denies illicit drug use Lives with (Yesi Edmond) Review of Systems Gastrointestinal: COMPLAINS OF: Nausea, DENIES: Abdominal pain, Black stools, Bloody stools, Constipation, Diarrhea, Vomiting, Difficulty Swallowing, Odynophagia, Swelling of Abdomen, Heartburn, Hematemesis (Yesi Edmond) GI Exam Vitals I&O Vital Signs Date Time Temp Pulse Resp B/P (MAP) Pulse Ox O2 Delivery O2 Flow Rate FiO2 04/23/17 12:25 98 04/23/17 12:00 90 04/23/17 12:00 98.1 90 18 145/79 (101) 97 04/23/17 10:00 88 04/23/17 08:00 98.2 88 25 191/81 (117) 98 04/23/17 08:00 88 04/23/17 07:00 Nasal Cannula 2.00 98 3/14/18 06:00 92 04/23/17 04:00 97.0 86 21 169/79 (109) 96 04/23/17 04:00 86 04/23/17 02:00 88 04/23/17 00:00 98.3 89 22 177/76 (109) 97 04/23/17 00:00 89 04/22/17 22:00 96 04/22/17 20:00 68 04/22/17 19:00 Nasal Cannula 2.00 97 04/22/17 19:00 97 Nasal Cannula 2.00 04/22/17 19:00 97.0 94 18 149/68 (95) 97 04/22/17 18:00 90 04/22/17 16:00 98 04/22/17 16:00 97.9 90 16 145/66 (92) 98 I/O 04/22/17 04/22/17 04/22/17 04/23/17 04/23/17 04/23/17 07:00 15:00 23:00 07:00 15:00 23:00 Intake Total 1290 ml 250 ml 650 ml 120 ml Output Total 500 ml 525 ml 400 ml Balance 790 ml 250 ml 125 ml -280 ml Intake Oral 240 ml 100 ml 120 ml IV Total 1050 ml 250 ml 550 ml Output Urine Total 500 ml 525 ml 400 ml # Bowel Movements 0 Imaging Last Impressions Renal Ultrasound 04/22/17 0000 Signed Impressions: Service Date/Time: Saturday, April 22, 2017 21:27 - CONCLUSION: No obstructive uropathy or other acute abnormality. Incidentally seen benign-appearing left renal cyst. Ash Mason MD Chest X-Ray 04/21/17 1740 Signed Impressions: Service Date/Time: Friday, April 21, 2017 18:10 - CONCLUSION: No evidence of acute cardiopulmonary disease. Ash Mason MD Head CT 04/21/17 0000 Signed Impressions: Service Date/Time: Friday, April 21, 2017 18:29 - CONCLUSION: Normal noncontrast head CT. Ash Mason MD Laboratory Test 04/22/17 15:46 04/22/17 17:25 04/22/17 21:33 04/23/17 05:05 Blood Urea Nitrogen 101 MG/DL 104 MG/DL 117 MG/DL Creatinine 3.46 MG/DL 3.66 MG/DL 4.12 MG/DL Random Glucose 265 MG/DL 147 MG/DL 243 MG/DL Total Protein 6.5 GM/DL 6.6 GM/DL Calcium Level 7.4 MG/DL 7.5 MG/DL 7.4 MG/DL Phosphorus Level 3.7 MG/DL 3.7 MG/DL Magnesium Level 3.5 MG/DL 3.3 MG/DL Sodium Level 162 MEQ/L 165 MEQ/L 158 MEQ/L Potassium Level 4.2 MEQ/L 4.2 MEQ/L 5.9 MEQ/L Chloride Level 132 MEQ/L 132 MEQ/L 129 MEQ/L Carbon Dioxide Level 18.8 MEQ/L 19.0 MEQ/L 15.5 MEQ/L Anion Gap 11 MEQ/L 14 MEQ/L 14 MEQ/L Estimat Glomerular Filtration Rate 18 ML/MIN 17 ML/MIN 14 ML/MIN Protein Corrected Calcium 7.7 MG/DL 7.7 MG/DL Urine Color RED Urine Turbidity HAZY Urine pH 6.0 Urine Specific [place] 1.015 Urine Protein 100 mg/dL Urine Glucose (UA) 300 mg/dL Urine Ketones TRACE mg/dL Urine Occult Blood LARGE Urine Nitrite NEG Urine Bilirubin NEG Urine Urobilinogen LESS THAN 2.0 MG/DL Urine Leukocyte Esterase SMALL Urine RBC 72 /hpf Urine WBC 52 /hpf Urine Squamous Epithelial Cells <1 /hpf Urine Amorphous Sediment RARE Urine Bacteria FEW /hpf Urine Hyaline Casts 2 /lpf Urine Mucus FEW /lpf Microscopic Urinalysis Comment CATH-CULTURE IND Urine Random Creatinine 87 MG/DL Urine Random Total Protein 440 MG/DL Urine Protein/Creatinine Ratio 5.06 Urine Opiates Screen NEG Urine Barbiturates Screen NEG Urine Amphetamines Screen NEG Urine Benzodiazepines Screen NEG Urine Cocaine Screen NEG Urine Cannabinoids Screen NEG B-Hydroxybutyrate 1.25 MMOL/L Albumin 2.9 GM/DL Alkaline Phosphatase 154 U/L Aspartate Amino Transf (AST/SGOT) 2093 U/L Alanine Aminotransferase (ALT/SGPT) 318 U/L Total Bilirubin 0.9 MG/DL Test 04/23/17 11:10 Blood Urea Nitrogen 121 MG/DL Creatinine 4.45 MG/DL Random Glucose 354 MG/DL Total Protein 6.5 GM/DL Albumin 3.2 GM/DL Calcium Level 7.5 MG/DL Alkaline Phosphatase 139 U/L Aspartate Amino Transf (AST/SGOT) 2101 U/L Alanine Aminotransferase (ALT/SGPT) 335 U/L Total Bilirubin 1.0 MG/DL Sodium Level 156 MEQ/L Potassium Level 5.5 MEQ/L Chloride Level 127 MEQ/L Carbon Dioxide Level 17.2 MEQ/L Anion Gap 12 MEQ/L Estimat Glomerular Filtration Rate 13 ML/MIN Acetaminophen Level LESS THAN 2.0 MCG/ML Date/Time Source Procedure Growth Status 04/22/17 17:25 Urine Catheterized Urine Urine Culture - Preliminary Gram Negative Michael Resulted Physical Examination HEENT: Normocephalic; atraumatic CHEST: Even/unlabored CARDIAC: RRR ABDOMEN: Soft, nondistended, nontender; bowel sounds active SKIN: Normal; no rash; no jaundice. BOOKKEEPING SERVICE SALES AGENT: No focal deficits; alert and oriented times two (Yesi Edmond) Assessment and Plan Plan Assessment: - Transaminitis- LFTs WNL on admission, now markedly elevated Currently: AST-2101 ALT-335 Alk phos-139 T bili-1. Denies history of liver issues. Denies ETOH, illicit drug use. Does not take any prescription or OTC drugs. No hypotensive episodes since admission. No recent abdominal imaging. No clear cause for elevation of LFTs. ? Medication. - DKA- ABG- pCO2-25 HCO3-11 base excess-15.2. Subq and IV insulin, hgb A1C-17.7 - CHANELL on CKD- GFR-13 Plan: Liver PHILIP Liver US Monitor LFTs Supportive care Further recommendations based on findings of above and clinical course Pt has been seen and examined by myself and Dr. Hernandez and this note is written on his behalf (Yesi Edmond) Physician Comments Seen and examined, plan as above. Thank you for the consult. (Roman Hernandez MD) Yesi Edmond Apr 23, 2017 15:44 Roman Hernandez MD Apr 24, 2017 13:14
[2017-04-23] MEDS ORDERED: LEVOFLOXACIN 750 MG PREMIX INJ 150 ML IV ONE (16:00)
[2017-04-23] MEDS ORDERED: SODIUM BICARBONATE IV SCH (16:00)
[2017-04-23] MEDS ORDERED: LEVOFLOXACIN 750 MG PREMIX INJ 150 ML IV SCH (16:00)
[2017-04-23] MEDS ORDERED: WATER STERILE FOR IV SCH (16:00)
[2017-04-23] MEDS ORDERED: MIDAZOLAM HCL 2 MG/2 ML VIAL ONE (17:43)
[2017-04-23] MEDS: FREE WATER PO SCH (18:00)
[2017-04-23] MEDS ORDERED: ceFAZolin 2 GM PREMIX 50 ML ONE (18:41)
[2017-04-23] MEDS ORDERED: HEPARIN SODIUM - IV 10,000 UNITS/10 ML VIAL ONE (18:41)
[2017-04-23] MEDS ORDERED: PROTAMINE SULFATE 50 MG/5 ML VIAL ONE (18:41)
[2017-04-23] MEDS ORDERED: HEPARIN SODIUM - SQ 10,000 UNITS/ML VIAL ONE (18:41)
--- NOTE | 2017-04-23 19:24 | MB ---
cc: Jean Pierre Auguste MD DATE OF CONSULT: 04/23/2017 REASON FOR CONSULTATION: Pain in the right leg. HISTORY OF PRESENT ILLNESS: This 67-year-old gentleman was brought into the hospital on the evening of 04/21. He was noted to have diabetic ketoacidosis and was admitted for further care. The patient at that time was dehydrated with blood sugar in the 900 level. The patient was admitted to ICU and today, on 04/23, I was asked by the medical records custodian and consulted around 5:00 p.m. regarding the fact that patient cannot lift up his right leg. PAST MEDICAL HISTORY: That of hypertension, diabetes mellitus and coronary artery disease. The patient has had several episodes of diabetic ketoacidosis in the past. PAST SURGICAL HISTORY: Coronary artery bypass surgery followed by 2 stent placements. FAMILY HISTORY: Denies stroke. SOCIAL HISTORY: The patient does not drink. He smokes about a half a pack a day most of his adult life. PHYSICAL EXAMINATION: GENERAL: A pleasant 67-year-old gentleman. HEENT: Normocephalic. No trauma to the head. Pupils equal, reactive. Extraocular muscles intact. NECK: Supple with bilateral carotid pulses. Right-sided faint bruit. CHEST: Bilateral breath sounds decreased over both lung kay consistent with moderate degree of COPD. HEART: Regular rhythm. The patient did not have arrhythmia by the time I saw him. ABDOMEN: Soft, no rebound, no guarding, no masses. Slightly tender diffusely but this is common in patients in ketoacidosis. EXTREMITIES: The patient has a palpable left femoral pulse, a dopplerable popliteal pulse and dopplerable dorsalis pedis and posterior tibial. The patient has some degree of dependent rubor. On the right side, the patient has no palpable pulses, either femoral, popliteal, dorsalis pedis or posterior tibial. The foot is cold, pulseless and pale while the thigh is purplish discolored with livor mortis. These findings were noted apparently on the admission and this was described as a discoloration. This discoloration is due to patient having a devascularized extremity. Neurologically, the patient can move upper extremities and left leg, yet right leg is insensate and immobile. Ultrasound reveals complete occlusion of the blood flow to the right leg and patient will be taken immediately to the operating room for thromboembolectomy. It should be noted that in this situation, the most likely scenario will be that even the revascularization will not fix this and the patient will most likely lose this leg below or even above the knee. The permanent nerve damage usually is not reversible. Thank you much for the referral. Critical care 38 minutes. MD WALTER Huang//zach , 06:52 PM , 07:06 PM JERED
[2017-04-23] MEDS ORDERED: SODIUM BICARBONATE 8.4% INJ 50 MEQ/50 ML SYR ONE (19:51)
[2017-04-23 20:31] LABS: AUTOMATED NEUTROPHIL # 4.1 TH/MM3 (1.8-7.7); BASOPHIL % 0.4 % (0.0-2.0); EOSINOPHIL % 0.7 % (0.0-4.0); HEMATOCRIT 33.4 % (39.0-51.0); HEMOGLOBIN 11.3 GM/DL (13.0-17.0); LYMPH % 14.5 % (9.0-44.0); LYMPHOCYTE # 0.7 TH/MM3 (1.0-4.8); MEAN CORPUSCULAR HEMOGLOBIN 30.4 PG (27.0-34.0); MEAN CORPUSCULAR HGB CONC 33.7 % (32.0-36.0); MEAN PLATELET VOLUME 9.2 FL (7.0-11.0); MONO % 3.1 % (0.0-8.0); MONOCYTE # 0.2 TH/MM3 (0-0.9); NEUT % 81.3 % (16.0-70.0); PLATELET COUNT 72 TH/MM3 (150-450); RED BLOOD COUNT 3.72 MIL/MM3 (4.50-5.90); RED CELL DISTRIBUTION WIDTH 14.9 % (11.6-17.2); WHITE BLOOD COUNT 5.1 TH/MM3 (4.0-11.0)
[2017-04-23] MEDS ORDERED: HEPARIN-D5W 25,000 U/250 ML 250 ML IV PRN (20:45)
[2017-04-23] MEDS ORDERED: HEPARIN SODIUM - IV 10,000 UNITS/10 ML VIAL IV PUSH ONE (20:45)
[2017-04-23 20:53] LABS: BICARBONATE 22.6 MEQ/L (21.0-32.0); CALCIUM 6.6 MG/DL (8.5-10.1); CALCIUM-PROTEIN CORRECTED 8.2 MG/DL (8.5-10.1); CREATININE 4.21 MG/DL (0.60-1.30); TOTAL BILIRUBIN ADULT 0.3 MG/DL (0.2-1.0); TOTAL PROTEIN 4.1 GM/DL (6.4-8.2)
[2017-04-23 21:22] LABS: BANDS 24 % (0-6); DOHLE BODIES PRESENT (NONE SEEN); LYMPHOCYTES 10 % (9-44); METAMYELOCYTES 5 % (0-1); MONOCYTES 1 % (0-8); MYELOCYTES 3 % (0-0); NEUTROPHIL # MANUAL DIFF 4.4 TH/MM3 (1.8-7.7); POLYS (SEG NEUTROPHILS) 55 % (16-70); TOXIC GRANULATION 1+ (NORMAL); TOXIC VACUOLATION PRESENT (NONE SEEN)
[2017-04-23] MEDS ORDERED: DO NOT ADM ANY ANTICOAGULANT DRUGS PRN (21:30)
[2017-04-23] MEDS ORDERED: SODIUM CHLOR 0.9% 1000 ML INJ 1,000 ML IV ONE (23:00)
[2017-04-23] MEDS ORDERED: SODIUM POLYSTYRENE SULFONATE SUSP 15 GM/60 ML CUP PO ONE (23:00)
--- NOTE | 2017-04-23 23:13 | PD.CONS ---
[facility] Service Critical Care Medicine Consult Requested By Dr. Auguste Reason for Consult Critical care management of patient Primary Care Physician Unknown History of Present Illness 67-year-old male from the [place] who presented to [facility] emergency department 04/21 and was admitted for DKA. He has h/o CKD, DM , hyperlipidemia Coronary artery disease with prior stent and CABG. He had acute kidney injury on admission and creatinine progressively worsened. On 04/23 he complained of not being able to move his right lower extremity and was noted to have a cool right lower extremity with evidence of compartment syndrome. Transaminases were elevated with AST >2000. CPK >100k. Vascular surgery consultation was obtained and he has undergone thrombectomy and R lower leg fasciotomy by Dr. Auguste. [facility] is consulted to assist with medical management. Review of Systems Constitutional: DENIES: Fever Respiratory: DENIES: Cough Cardiovascular: DENIES: Chest pain Gastrointestinal: DENIES: Abdominal pain, Nausea, Vomiting Neurologic: DENIES: Headache Psychiatric: DENIES: Confusion Past Family Social History Allergies: Coded Allergies: No Known Allergies (Verified Allergy, Unknown, 04/22/17) Past Medical History Diabetes Hypertension Coronary artery disease with prior CABG and stent Hyperlipidemia Peripheral arterial disease Tobacco abuse Past Surgical History CABG 2010 Prior stents Reported Medications None He previously was on metformin but had discontinued it. Family History Mother at age 99 Social History Smokes half pack of cigarettes per day Denies use of alcohol or illicit drugs He is from the [place]. Physical Exam Vital Signs Vital Signs Date Time Temp Pulse Resp B/P (MAP) Pulse Ox O2 Delivery O2 Flow Rate FiO2 04/23/17 22:00 100 18 114/56 (75) 97 Nasal Cannula 2 04/23/17 22:00 97.4 100 16 114/56 (75) 97 04/23/17 21:45 99 18 131/58 (82) 97 Nasal Cannula 2 04/23/17 21:30 96 18 120/60 (80) 97 Nasal Cannula 2 04/23/17 21:15 95 18 127/58 (81) 97 Nasal Cannula 2 04/23/17 21:00 93 18 129/51 (77) 97 Nasal Cannula 2 04/23/17 20:45 92 18 145/49 (81) 97 Nasal Cannula 2 04/23/17 20:39 97.5 93 16 148/76 (100) 93 04/23/17 18:00 90 04/23/17 16:00 88 04/23/17 16:00 98.2 88 24 162/73 (102) 97 04/23/17 14:00 90 04/23/17 12:25 98 04/23/17 12:00 90 04/23/17 12:00 98.1 90 18 145/79 (101) 97 04/23/17 10:00 88 04/23/17 08:00 98.2 88 25 191/81 (117) 98 04/23/17 08:00 88 04/23/17 07:00 Nasal Cannula 2.00 98 04/23/17 06:00 92 04/23/17 04:00 97.0 86 21 169/79 (109) 96 04/23/17 04:00 86 04/23/17 02:00 88 04/23/17 00:00 98.3 89 22 177/76 (109) 97 04/23/17 00:00 89 Physical Exam GENERAL: Ill-appearing patient who is laying in ISC bed. SKIN: Warm and dry. No rash HEAD: Atraumatic. Normocephalic. EYES: Pupils equal and round, reactive bilaterally. No scleral icterus. No injection or drainage. ENT: No nasal bleeding or discharge. Mucous membranes pink and moist. NECK: Trachea midline. No JVD. CARDIOVASCULAR: Tachycardic, regular, sinus tach on the monitor.. No murmurs rubs or gallops. RESPIRATORY: No accessory muscle use. Clear to auscultation. Breath sounds equal bilaterally. On 2 L nasal cannula. GASTROINTESTINAL: Abdomen soft, non-tender, nondistended. Bowel sounds present. : [place] in place with sinai urine. MUSCULOSKELETAL: Right lower extremity with palpable femoral and popliteal pulses. No palpable or dopplerable DP or posterior tibial artery pulses on the right. Foot is cool and violaceous with no movement at the toes or ankle. He has 1-2/5 hip flexion on the right. He has had a right lower leg fasciotomy and [place] wrap is in place. The upper aspect of the [place] wrap is blood stained and there is oozing at the fasciotomy site. NEUROLOGICAL: Awake and alert. No obvious cranial nerve deficits. Normal speech. Strength is 5 out of 5 in bilateral upper extremities and left lower extremity. Laboratory Laboratory Tests Test 04/23/17 05:05 04/23/17 11:10 04/23/17 16:26 04/23/17 19:42 Blood Urea Nitrogen 117 121 Creatinine 4.12 4.45 Random Glucose 243 354 Total Protein 6.6 6.5 Albumin 2.9 3.2 Calcium Level 7.4 7.5 Alkaline Phosphatase 154 139 Aspartate Amino Transf (AST/SGOT) 2093 2101 Alanine Aminotransferase (ALT/SGPT) 318 335 Total Bilirubin 0.9 1.0 Sodium Level 158 156 Potassium Level 5.9 5.5 Chloride Level 129 127 Carbon Dioxide Level 15.5 17.2 Anion Gap 14 12 Estimat Glomerular Filtration Rate 14 13 Protein Corrected Calcium 7.7 Gamma Glutamyl Transpeptidase 14 Total Creatine Kinase 184997 Creatine Kinase MB 642.4 Creatine Kinase MB % 0.4 Lipase 1415 1067 Acetaminophen Level LESS THAN 2.0 Uric Acid 14.4 Thyroid Stimulating Hormone 3rd Gen 0.791 Blood Gas Puncture Site DRAWN IN OR Blood Gas Patient Temperature 98.6 Blood Gas HCO3 18 Blood Gas Base Excess -8.1 Blood Gas Oxygen Saturation 97 Arterial Blood pH 7.23 Arterial Blood Partial Pressure CO2 45 Arterial Blood Partial Pressure O2 260 Arterial Blood Oxygen Content 18.9 Arterial Blood Carboxyhemoglobin 0.9 Arterial Blood Methemoglobin 1.5 Blood Gas Hemoglobin 13.5 Oxygen Delivery Device OR Blood Gas Ventilator Setting OR Blood Gas Inspired Oxygen 50 Test 04/23/17 20:04 04/23/17 21:42 White Blood Count 5.1 Red Blood Count 3.72 Hemoglobin 11.3 Hematocrit 33.4 Mean Corpuscular Volume 90.0 Mean Corpuscular Hemoglobin 30.4 Mean Corpuscular Hemoglobin Concent 33.7 Red Cell Distribution Width 14.9 Platelet Count 72 Mean Platelet Volume 9.2 Neutrophils (%) (Auto) 81.3 Lymphocytes (%) (Auto) 14.5 Monocytes (%) (Auto) 3.1 Eosinophils (%) (Auto) 0.7 Basophils (%) (Auto) 0.4 Neutrophils # (Auto) 4.1 Lymphocytes # (Auto) 0.7 Monocytes # (Auto) 0.2 Eosinophils # (Auto) 0.0 Basophils # (Auto) 0.0 CBC Comment AUTO DIFF Differential Total Cells Counted 100 Neutrophils % (Manual) 55 Band Neutrophils % 24 Lymphocytes % 10 Monocytes % 1 Eosinophils % 2 Neutrophils # (Manual) 4.4 Metamyelocytes 5 Myelocytes 3 Differential Comment FINAL DIFF MANUAL Toxic Granulation 1+ Toxic Vacuolation PRESENT Dohle Bodies PRESENT Platelet Estimate LOW Platelet Morphology Comment NORMAL Blood Urea Nitrogen 123 Creatinine 4.21 Random Glucose 246 Total Protein 4.1 Albumin 2.0 Calcium Level 6.6 Alkaline Phosphatase 93 Aspartate Amino Transf (AST/SGOT) 1442 Alanine Aminotransferase (ALT/SGPT) 249 Total Bilirubin 0.3 Sodium Level 162 Potassium Level 5.4 Chloride Level 126 Carbon Dioxide Level 22.6 Anion Gap 13 Estimat Glomerular Filtration Rate 14 Protein Corrected Calcium 8.2 Activated Partial Thromboplast Time 67.1 Date/Time Source Procedure Growth Status 04/22/17 17:25 Urine Catheterized Urine Urine Culture - Preliminary Gram Negative Michael Resulted Result Diagram: 04/23/17200304/23/172003 Assessment and Plan Problem List: (1) Rhabdomyolysis ICD Code: M62.82 - Rhabdomyolysis Status: Acute (2) Hyperkalemia ICD Code: E87.5 - Hyperkalemia Status: Acute (3) CKD (chronic kidney disease) stage 3, GFR 30-59 ml/min ICD Code: N18.3 - Chronic kidney disease, stage 3 (moderate) Status: Chronic (4) Acute renal failure ICD Code: N17.9 - Acute kidney failure, unspecified Status: Acute (5) Compartment syndrome ICD Code: T79.A0XA - Compartment syndrome, unspecified, initial encounter Status: Acute (6) Hyperammonemia ICD Code: E72.20 - Disorder of urea cycle metabolism, unspecified Status: Acute (7) Ischemic leg ICD Code: I99.8 - Other disorder of circulatory system Status: Acute (8) Diabetes ICD Code: E11.9 - Type 2 diabetes mellitus without complications Status: Chronic (9) Anemia associated with acute blood loss ICD Code: D62 - Acute posthemorrhagic anemia Status: Acute (10) UTI (urinary tract infection) ICD Code: N39.0 - Urinary tract infection, site not specified Status: Acute (11) CAD in [place] artery ICD Code: I25.10 - Atherosclerotic heart disease of [place] coronary artery without angina pectoris Status: Chronic (12) Hx of CABG ICD Code: Z95.1 - Presence of aortocoronary bypass graft Status: Chronic Assessment and Plan NEURO: Acute toxic metabolic encephalopathy on admission, resolved Hyperammonemia Oxycodone as needed for pain. Dilaudid as needed for breakthrough pain. Rifaximin 550 g by mouth twice a day, f/u ammonia level. Avoid lactulose due to volume depletion I abnormalities. RESP: Tobacco abuse Nasal cannula wean as tolerated CV: Right lower leg ischemia now status post thrombectomy and fasciotomy by Dr. Auguste Coronary artery disease with prior CABG and stent Hypertension Hyperlipidemia Hypotensive postoperatively, fluid responsive Bolus 1.5 L of NS and given albumin 25 g IV. Hemodynamic monitoring via arterial line. Avoid statin due to elevated LFTs may be elevated due to muscle injury. Was on heparin drip postoperatively. This has been held by Dr. Degroot due to bleeding at the fasciotomy site. Follow-up CBC GI: Transaminases elevation which likely is related to muscle injury from acute rhabdomyolysis GI has evaluated and ordered liver w/u. Nothing by mouth. FEN/RENAL: Acute rhabdomyolysis Acute kidney injury Acute hyperkalemia Acute hypernatremia Acute hypocalcemia Non-anion gap metabolic acidemia Nephrology has been following. Creatinine worsening, may require hemodialysis Overnight Given 2 g calcium gluconate, 1 L normal saline bolus, Kayexalate 30 g , insulin 10 units IV, continued bicarbonate drip for potassium of 5.4. On bicarbonate drip with D5 50 mEq of bicarbonate per liter at 150 mL per hour. Worsening hypernatremia so placed on D5 at 60 mL per hour however this ended up being held for now because of worsening hyperglycemia despite insulin drip. Follow-up labs were obtained and potassium is 7.1 without mention of hemolysis. Gave calcium gluconate 2 g IV bicarbonate 150 MEQ, additional Kayexalate 30 g by mouth, 1 L normal saline bolus, Lasix 40 mg IV, albuterol neb. Patient will require HD, Dr. Nuno discussed with Dr. Suarez and is proceeding with Vascath placement. ID: UTI On IV Levaquin for UTI per family medicine. Follow-up urine culture HEME: Acute blood loss anemia Heparin drip on hold per Dr. Degroot due to bleeding at the fasciotomy site. Follow- up serial hemoglobin ENDO: Acute hyperglycemia Diabetes mellitus Start insulin drip algorithm 2 . PROPH: Was on heparin drip which is being held due to bleeding. Famotidine 20 mg IV every 12 hours for stress ulcer prophylaxis. ACCESS: Left radial art line 04/23 #1. Peripheral IV providing adequate access at this time. Patient is critically ill with ischemic leg resulting in acute rhabdomyolysis and CHANELL which represents threat to life and limb. Intermittent hypotension requiring clinical assessment and management. Hyperkalemia requiring emergent management. Patient will remain in ISC. Discussed with Dr. Auguste. Critical care time 60 minutes exclusive of separately billable procedures. Viviana Boss MD Apr 23, 2017 23:12
[2017-04-23] MEDS ORDERED: DEXTROSE 5% IN WATE 1000ML INJ 1,000 ML IV SCH (23:15)
[2017-04-23] MEDS ORDERED: CALCIUM GLUCONATE INJ 2 GM in DEXTROSE 5% IN WATER 100ML INJ 100 ML IV ONE ×2 (23:30)
[2017-04-23] MEDS ORDERED: INSULIN DETEMIR 100 UNITS/ML VIAL SQ SCH (23:30)
--- NOTE | 2017-04-23 23:32 | RADRPT ---
EXAM DATE/TIME: 04/23/2017 23:10 [facility] COMPARISON: CHEST SINGLE AP, April 21, 2017, 18:10. INDICATIONS : Shortness of breath. MEDICAL HISTORY : None. SURGICAL HISTORY : CABG. ENCOUNTER: Subsequent ACUITY: 3 days PAIN SCORE: 0/10 LOCATION: Bilateral chest FINDINGS: A single view of the chest demonstrates the lungs to be symmetrically aerated without evidence of mas s, infiltrate or effusion. The cardiomediastinal contours are unremarkable. Osseous structures are intact. Median sternotomy wires and coronary markers. CONCLUSION: No acute disease. Chris Sotomayor Jr., MD on April 23, 2017 at 23:30 Board Certified Radiologist. This report was verified electronically.
--- NOTE | 2017-04-23 23:39 | EKG ---
Date Performed: 04/22/2017 Time Performed: 16:42:47 PTAGE: 67 years EKG: Sinus rhythm POSSIBLE LEFT ATRIAL ENLARGEMENT NONSPECIFIC T-WAVE ABNORMALITY BORDERLINE ECG PREVIOUS TRACING : 04/21/2017 18.00 Since the previous tracing, no significant change noted DOCTOR: Hieu Hansen Interpretating Date/Time 04/23/2017 23:37:14
[2017-04-24] VITALS (12 sets, daily range): BP systolic 89–149; BP diastolic 45–65; PULSE 82–104; RESP 14–29; TEMP 97.8–99.7; O2SAT 95–100
[2017-04-24] MEDS ORDERED: ALBUMIN 25% INJ 50 ML IV ONE
[2017-04-24] MEDS: FAMOTIDINE 20 MG/2 ML VIAL IV PUSH SCH ×2 (00:03→22:25)
[2017-04-24 00:44] LABS: INTERNATIONAL NORMALIZED RATIO 1.2 RATIO; PROTHROMBIN TIME - PATIENT 12.1 SEC (9.8-11.6)
[2017-04-24 01:08] LABS: HEMATOCRIT 37.5 % (39.0-51.0); HEMOGLOBIN 12.6 GM/DL (13.0-17.0)
[2017-04-24] MEDS: HYDROmorphone HCL PF 2 MG/ML VIAL IV PUSH PRN (01:48)
[2017-04-24] MEDS: INSULIN ASPART SUPPLEMENTAL SCALE SQ SCH (03:30)
[2017-04-24] MEDS: DEXTROSE 5% IV SCH ×8 (03:38→22:27)
[2017-04-24] MEDS: SODIUM BICARBONATE IV SCH ×8 (03:38→22:27)
[2017-04-24] MEDS: WATE IV SCH ×8 (03:38→22:27)
[2017-04-24] MEDS: CHLORHEXIDINE GLUCONATE 2 % 1 PACK (2 CLOTHS) TOP SCH (03:50)
[2017-04-24 03:55] LABS: AUTOMATED NEUTROPHIL # 5.3 TH/MM3 (1.8-7.7); BASOPHIL % 0.1 % (0.0-2.0); EOSINOPHIL % 0.2 % (0.0-4.0); HEMATOCRIT 37.5 % (39.0-51.0); HEMOGLOBIN 12.4 GM/DL (13.0-17.0); LYMPH % 6.1 % (9.0-44.0); LYMPHOCYTE # 0.4 TH/MM3 (1.0-4.8); MEAN CELL VOLUME 90.5 FL (80.0-100.0); MEAN CORPUSCULAR HEMOGLOBIN 29.9 PG (27.0-34.0); MEAN PLATELET VOLUME 10.2 FL (7.0-11.0); MONO % 5.9 % (0.0-8.0); MONOCYTE # 0.4 TH/MM3 (0-0.9); NEUT % 87.7 % (16.0-70.0); PLATELET COUNT 70 TH/MM3 (150-450); RED BLOOD COUNT 4.14 MIL/MM3 (4.50-5.90); RED CELL DISTRIBUTION WIDTH 15.1 % (11.6-17.2); WHITE BLOOD COUNT 6.1 TH/MM3 (4.0-11.0)
[2017-04-24 04:24] LABS: COMPLEMENT C3 72 MG/DL (90-180); COMPLEMENT C4 22 MG/DL (10-40)
[2017-04-24] MEDS ORDERED: DEXTROSE 50% IN WATER 50 ML VIAL(D50) IV PUSH PRN ×2 (04:45→10:15)
[2017-04-24] MEDS ORDERED: INSULIN REGULAR (IV INFUSION) 100 UNITS in SODIUM CHLORIDE 0.9% INJ 99 ML IV PRN ×2 (04:45→10:15)
[2017-04-24] MEDS ORDERED: INSULIN HUMAN REGULAR 1,000 UNITS/10 ML VIAL IV PUSH ONE (04:45)
[2017-04-24] MEDS ORDERED: MISC INFORMATION OTHER ONE ×2 (04:45→10:15)
[2017-04-24 05:20] LABS: ALBUMIN 2.2 GM/DL (3.4-5.0); BICARBONATE 18.4 MEQ/L (21.0-32.0); C-REACTIVE PROTEIN 21.1 MG/DL (0.00-0.30); CHOLESTEROL/ HDL RATIO 12.3 RATIO; CREATININE 4.85 MG/DL (0.60-1.30); HDL CHOLESTEROL 12.6 MG/DL (40.0-60.0); MAGNESIUM 3.2 MG/DL (1.5-2.5); PHOSPHORUS 8.6 MG/DL (2.5-4.9); TOTAL BILIRUBIN ADULT 0.3 MG/DL (0.2-1.0); TOTAL PROTEIN 4.8 GM/DL (6.4-8.2)
[2017-04-24 05:32] LABS: CALCIUM-PROTEIN CORRECTED 7.1 MG/DL (8.5-10.1)
[2017-04-24] MEDS: FREE WATER PO SCH ×2 (06:00)
[2017-04-24] MEDS ORDERED: SODIUM POLYSTYRENE SULFONATE SUSP 15 GM/60 ML CUP PO ONE (06:30)
[2017-04-24] MEDS ORDERED: RESP: ALBUTEROL 2.5 MG/3 ML NEB (SCH) NEB ONE (06:30)
[2017-04-24] MEDS ORDERED: FUROSEMIDE 40 MG/4 ML VIAL IV PUSH ONE (06:30)
[2017-04-24] MEDS ORDERED: SODIUM BICARBONATE 8.4% INJ 50 MEQ/50 ML SYR IV PUSH ONE (06:30)
[2017-04-24] MEDS ORDERED: SODIUM CHLOR 0.9% 1000 ML INJ 1,000 ML IV ONE (06:30)
[2017-04-24] MEDS ORDERED: CALCIUM GLUCONATE INJ 1 GM in DEXTROSE 5% IN WATER 100ML INJ 100 ML IV ONE ×2 (06:30)
[2017-04-24] MEDS ORDERED: CALCIUM CHLORIDE INJ 1 GM in DEXTROSE 5% IN WATER 100ML INJ 100 ML IV ONE ×2 (06:45)
[2017-04-24] MEDS ORDERED: SODIUM CHLOR 0.9% 1000 ML INJ 1,000 ML IV PRN (06:57)
[2017-04-24] MEDS ORDERED: SODIUM CHLOR 0.9% 1000 ML INJ 1,000 ML OTHER PRN ×2 (06:57)
[2017-04-24] MEDS ORDERED: GELATIN 12 MM/7 MM FOAM TOP PRN (07:00)
[2017-04-24] MEDS: ALBUMIN 5% INJ 500 ML IV SCH (07:00)
[2017-04-24] MEDS ORDERED: ONDANSETRON HCL 4 MG/2 ML VIAL IV PUSH PRN (07:00)
[2017-04-24] MEDS ORDERED: ALBUMIN 25% INJ 100 ML IV PRN (07:00)
[2017-04-24] MEDS ORDERED: NITROGLYCERIN 0.4 MG SL 25 TABS/BTL SL PRN (07:00)
[2017-04-24] MEDS ORDERED: HEPARIN SODIUM - IV 10,000 UNITS/10 ML VIAL IV FLUSH PRN (07:00)
[2017-04-24] MEDS ORDERED: diphenhydrAMINE HCL 25 MG CAP PO PRN (07:00)
[2017-04-24] MEDS ORDERED: EPOETIN ALFA 10,000 UNITS/ML VIAL IV PUSH PRN (07:00)
[2017-04-24] MEDS ORDERED: SODIUM CHLORIDE 0.9% FLUSH 10 ML FLUSH IV FLUSH PRN (07:00)
[2017-04-24] MEDS ORDERED: MANNITOL 12.5 GM/50 ML VIAL IV PRN (07:00)
[2017-04-24 07:39] LABS: BANDS 26 % (0-6); LYMPHOCYTES 5 % (9-44); MONOCYTES 7 % (0-8); NEUTROPHIL # MANUAL DIFF 5.4 TH/MM3 (1.8-7.7); POLYS (SEG NEUTROPHILS) 62 % (16-70)
[2017-04-24] MEDS ORDERED: EPOETIN ALFA 4,000 UNITS/ML VIAL IV PUSH PRN (07:45)
--- NOTE | 2017-04-24 08:51 | RADRPT ---
EXAM DATE/TIME: 04/24/2017 08:20 [facility] COMPARISON: CHEST SINGLE AP, April 23, 2017, 23:10. INDICATIONS : Central line placement x2. MEDICAL HISTORY : None. SURGICAL HISTORY : CABG. ENCOUNTER: Initial ACUITY: 1 day PAIN SCORE: Non-responsive. LOCATION: Bilateral chest FINDINGS: The tips of the right internal jugular Vas-Cath and the left internal jugular central line are locate d at the junction of the superior vena cava and right atrium in good positions. There is no pneumotho rax. Median sternotomy wires are noted status post cardiac surgery. The heart is normal. The lungs ar e clear. CONCLUSION: Right internal jugular vas catheter and left internal jugular central line are in good positions with their tips at the junction of the superior vena cava and right atrium. No pneumothorax is noted. Red Toro MD on April 24, 2017 at 8:47 Board Certified Radiologist. This report was verified electronically.
--- NOTE | 2017-04-24 10:22 | RADRPT ---
EXAM DATE/TIME: 04/23/2017 00:00 [facility] COMPARISON : No previous studies available for comparison. INDICATIONS : Patient presnts with cold, pulseless right leg. HISTORY OF PRESENT ILLNESS: The brandin is a 67-year-old who was admitted in diabetic ketoacidosis. The patient was noted to have a cold right lower extremity. We're asked to evaluate the patient for potential thrombolytic infusio n. PAST MEDICAL HISTORY : 1. Diabetes 2. HTN 3. Tobacco use PAST SURGICAL HISTORY : 1. CABG Examination: The right lower extremity was evaluated. The extremity was quite cold and cyanotic. No identifiable p ulses were evident within the right lower extremity. There was loss of motor and sensory function. Th ere were changes consistent with severe ischemia of the right lower extremity. IMAGING STUDIES: The patient was examined with ultrasound prior to angiography. The ultrasound images demonstrated com plete thrombosis of the external iliac circulation, the common femoral, profunda femoral, superficial femoral and popliteal arteries. No flow was identified within the runoff vessels below the level of the knee. ASSESSMENT: The patient has complete thrombosis of the right lower extremity arterial inflow with loss of motor f unction. Due to the extensive amount of thrombus, severe ischemic changes and loss of motor function the patient was not a candidate for thrombolysis. The case was discussed with Dr. Auguste. The deci mickey was made to take the patient emergently to the operating room for open thrombectomy. PLAN: The patient will be taken to the operating room for open thrombectomy. TIME SPENT: 20 minutes. Quinn Porter MD on April 24, 2017 at 10:12 Board Certified Radiologist. This report was verified electronically.
--- NOTE | 2017-04-24 10:34 | HHI.GIFU ---
Subjective Remarks Pt resting in bed, undergoing dialysis. s/p emergent fasciotomy yesterday. No GI complaints. (Kandi Ríos) Objective Vitals I&O Vital Signs Date Time Temp Pulse Resp B/P (MAP) Pulse Ox O2 Delivery O2 Flow Rate FiO2 04/24/17 06:00 92 04/24/17 04:00 98.7 90 21 116/58 (77) 98 04/24/17 04:00 90 04/24/17 02:00 101 04/24/17 00:00 104 04/24/17 00:00 97.8 104 29 89/45 (60) 97 04/23/17 23:30 103 04/23/17 22:00 100 18 114/56 (75) 97 Nasal Cannula 2 04/23/17 22:00 97.4 100 16 114/56 (75) 97 04/23/17 21:45 99 18 131/58 (82) 97 Nasal Cannula 2 04/23/17 21:30 96 18 120/60 (80) 97 Nasal Cannula 2 04/23/17 21:15 95 18 127/58 (81) 97 Nasal Cannula 2 04/23/17 21:00 93 18 129/51 (77) 97 Nasal Cannula 2 04/23/17 20:45 92 18 145/49 (81) 97 Nasal Cannula 2 04/23/17 20:39 97.5 93 16 148/76 (100) 93 04/23/17 18:00 90 04/23/17 16:00 88 04/23/17 16:00 98.2 88 24 162/73 (102) 97 04/23/17 14:00 90 04/23/17 12:25 98 04/23/17 12:00 90 04/23/17 12:00 98.1 90 18 145/79 (101) 97 I/O 04/23/17 04/23/17 04/23/17 04/24/17 04/24/17 04/24/17 07:00 15:00 23:00 07:00 15:00 23:00 Intake Total 120 ml 120 ml 1900 ml 1170 ml Output Total 400 ml 750 ml 375 ml 450 ml Balance -280 ml -630 ml 1525 ml 720 ml Intake Oral 120 ml 120 ml 120 ml IV Total 1050 ml Other 1900 ml Output Urine Total 400 ml 750 ml 175 ml 450 ml Estimated Blood Loss 200 ml # Bowel Movements 1 Laboratory Laboratory Tests Test 04/23/17 11:10 04/23/17 16:26 04/23/17 19:42 04/23/17 20:04 Blood Urea Nitrogen 121 123 Creatinine 4.45 4.21 Random Glucose 354 246 Total Protein 6.5 4.1 Albumin 3.2 2.0 Calcium Level 7.5 6.6 Alkaline Phosphatase 139 93 Aspartate Amino Transf (AST/SGOT) 2101 1442 Alanine Aminotransferase (ALT/SGPT) 335 249 Total Bilirubin 1.0 0.3 Sodium Level 156 162 Potassium Level 5.5 5.4 Chloride Level 127 126 Carbon Dioxide Level 17.2 22.6 Anion Gap 12 13 Estimat Glomerular Filtration Rate 13 14 Gamma Glutamyl Transpeptidase 14 Total Creatine Kinase 912083 Creatine Kinase MB 642.4 Creatine Kinase MB % 0.4 Lipase 1415 1067 Acetaminophen Level LESS THAN 2.0 Uric Acid 14.4 Thyroid Stimulating Hormone 3rd Gen 0.791 Blood Gas Puncture Site DRAWN IN OR Blood Gas Patient Temperature 98.6 Blood Gas HCO3 18 Blood Gas Base Excess -8.1 Blood Gas Oxygen Saturation 97 Arterial Blood pH 7.23 Arterial Blood Partial Pressure CO2 45 Arterial Blood Partial Pressure O2 260 Arterial Blood Oxygen Content 18.9 Arterial Blood Carboxyhemoglobin 0.9 Arterial Blood Methemoglobin 1.5 Blood Gas Hemoglobin 13.5 Oxygen Delivery Device OR Blood Gas Ventilator Setting OR Blood Gas Inspired Oxygen 50 White Blood Count 5.1 Red Blood Count 3.72 Hemoglobin 11.3 Hematocrit 33.4 Mean Corpuscular Volume 90.0 Mean Corpuscular Hemoglobin 30.4 Mean Corpuscular Hemoglobin Concent 33.7 Red Cell Distribution Width 14.9 Platelet Count 72 Mean Platelet Volume 9.2 Neutrophils (%) (Auto) 81.3 Lymphocytes (%) (Auto) 14.5 Monocytes (%) (Auto) 3.1 Eosinophils (%) (Auto) 0.7 Basophils (%) (Auto) 0.4 Neutrophils # (Auto) 4.1 Lymphocytes # (Auto) 0.7 Monocytes # (Auto) 0.2 Eosinophils # (Auto) 0.0 Basophils # (Auto) 0.0 CBC Comment AUTO DIFF Differential Total Cells Counted 100 Neutrophils % (Manual) 55 Band Neutrophils % 24 Lymphocytes % 10 Monocytes % 1 Eosinophils % 2 Neutrophils # (Manual) 4.4 Metamyelocytes 5 Myelocytes 3 Differential Comment FINAL DIFF MANUAL Toxic Granulation 1+ Toxic Vacuolation PRESENT Dohle Bodies PRESENT Platelet Estimate LOW Platelet Morphology Comment NORMAL Protein Corrected Calcium 8.2 Test 04/23/17 21:42 04/24/17 00:39 04/24/17 03:38 04/24/17 08:11 Prothrombin Time 12.1 Prothromb Time International Ratio 1.2 Activated Partial Thromboplast Time 67.1 31.7 Hemoglobin 12.6 12.4 Hematocrit 37.5 37.5 White Blood Count 6.1 Red Blood Count 4.14 Mean Corpuscular Volume 90.5 Mean Corpuscular Hemoglobin 29.9 Mean Corpuscular Hemoglobin Concent 33.0 Red Cell Distribution Width 15.1 Platelet Count 70 Mean Platelet Volume 10.2 Neutrophils (%) (Auto) 87.7 Lymphocytes (%) (Auto) 6.1 Monocytes (%) (Auto) 5.9 Eosinophils (%) (Auto) 0.2 Basophils (%) (Auto) 0.1 Neutrophils # (Auto) 5.3 Lymphocytes # (Auto) 0.4 Monocytes # (Auto) 0.4 Eosinophils # (Auto) 0.0 Basophils # (Auto) 0.0 CBC Comment AUTO DIFF Differential Total Cells Counted 100 Neutrophils % (Manual) 62 Band Neutrophils % 26 Lymphocytes % 5 Monocytes % 7 Neutrophils # (Manual) 5.4 Differential Comment FINAL DIFF MANUAL Platelet Estimate LOW Platelet Morphology Comment NORMAL Red Cell Morphology Comment NORMAL Erythrocyte Sedimentation Rate 21 Blood Urea Nitrogen 120 Creatinine 4.85 Random Glucose 455 Total Protein 4.8 Albumin 2.2 Calcium Level 6.0 Phosphorus Level 8.6 Magnesium Level 3.2 Alkaline Phosphatase 98 Aspartate Amino Transf (AST/SGOT) 3200 Alanine Aminotransferase (ALT/SGPT) 492 Total Bilirubin 0.3 Sodium Level 153 Potassium Level 7.1 Chloride Level 120 Carbon Dioxide Level 18.4 Anion Gap 15 Estimat Glomerular Filtration Rate 12 Protein Corrected Calcium 7.1 Ammonia 75 C-Reactive Protein 21.10 Triglycerides Level 200 Cholesterol Level 155 LDL Cholesterol 102 HDL Cholesterol 12.6 Cholesterol/HDL Ratio 12.30 Complement C3 72 Complement C4 22 Lactic Acid Level 4.1 B-Hydroxybutyrate 0.12 Date/Time Source Procedure Growth Status 04/22/17 17:25 Urine Catheterized Urine Urine Culture - Final Klebsiella Pneumoniae Group B Beta Strep Complete Imaging Last Impressions Chest X-Ray 04/24/17 0000 Signed Impressions: Service Date/Time: April 08:20 - CONCLUSION: Right internal jugular vas catheter and left internal jugular central line are in good positions with their tips at the junction of the superior vena cava and right atrium. No pneumothorax is noted. Red Toro MD Renal Ultrasound 04/22/17 0000 Signed Impressions: Service Date/Time: Saturday, April 22, 2017 21:27 - CONCLUSION: No obstructive uropathy or other acute abnormality. Incidentally seen benign-appearing left renal cyst. Ash Mason MD Head CT 04/21/17 0000 Signed Impressions: Service Date/Time: Friday, April 21, 2017 18:29 - CONCLUSION: Normal noncontrast head CT. Ash Msaon MD Physical Exam HEENT: normocephalic; atraumatic; no jaundice. CHEST: CTA CARDIAC: tachy ABDOMEN: Soft, nondistended, nontender; no hepatosplenomegaly; bowel sounds are present in all four quadrants. EXTREMITIES: RLE bandaged, right foot dark and appears necrotic and is cold. left foot dusky. SKIN: Normal; no rash; no jaundice. HR ANALYST: lethargic (Kandi Ríos) Assessment and Plan Plan Assessment: - Transaminitis- LFTs WNL on admission, now markedly elevated Currently: AST-2101 ALT-335 Alk phos-139 T bili-1. Denies history of liver issues. Denies ETOH, illicit drug use. Does not take any prescription or OTC drugs. No hypotensive episodes since admission. No recent abdominal imaging. No clear cause for elevation of LFTs. ? Medication. - DKA- ABG- pCO2-25 HCO3-11 base excess-15.2. Subq and IV insulin, hgb A1C-17.7 - CHANELL on CKD- GFR-13 04/24/17 s/p emergent fasciotomy. rhabdomyolysis likely cause LFT elevation. GGT WNL. on dialysis now. d/w CCM Plan: await liver w/u Monitor labs Supportive care GI will sign off, please reconsult if needed Pt has been seen and examined by myself and Dr. Hernandez and this note is written on his behalf (Kandi Ríos) Physician Comments As above, please notify us if needed. (Roman Hernandez MD) Knadi Ríos Apr 24, 2017 10:34 Roman Hernandez MD Apr 24, 2017 13:15
--- NOTE | 2017-04-24 11:02 | HHI.NPPN ---
Subjective History of Present Illness 67 year old with Hypertension,DKA, DM, ARF Additional Remarks had rt leg clot fasciotomy thrombectomy rt foot leg ischemic Objective Data Data 04/24/17 04/25/17 19:00 07:00 Output Total 1000 ml Balance -1000 ml Hemodialysis 1000 ml Vital Signs Date Time Temp Pulse Resp B/P (MAP) Pulse Ox O2 Delivery O2 Flow Rate FiO2 04/24/17 06:00 92 04/24/17 04:00 98.7 90 21 116/58 (77) 98 04/24/17 04:00 90 04/24/17 02:00 101 04/24/17 00:00 104 04/24/17 00:00 97.8 104 29 89/45 (60) 97 04/23/17 23:30 103 04/23/17 22:00 100 18 114/56 (75) 97 Nasal Cannula 2 04/23/17 22:00 97.4 100 16 114/56 (75) 97 04/23/17 21:45 99 18 131/58 (82) 97 Nasal Cannula 2 04/23/17 21:30 96 18 120/60 (80) 97 Nasal Cannula 2 04/23/17 21:15 95 18 127/58 (81) 97 Nasal Cannula 2 04/23/17 21:00 93 18 129/51 (77) 97 Nasal Cannula 2 04/23/17 20:45 92 18 145/49 (81) 97 Nasal Cannula 2 04/23/17 20:39 97.5 93 16 148/76 (100) 93 04/23/17 18:00 90 04/23/17 16:00 88 04/23/17 16:00 98.2 88 24 162/73 (102) 97 04/23/17 14:00 90 04/23/17 12:25 98 04/23/17 12:00 90 04/23/17 12:00 98.1 90 18 145/79 (101) 97 -: 04/24/17 0338 04/24/17 0338 Physical Exam General Appearance: Well Developed, Well Nourished Neck Neck Exam: Neck Supple Pulmonary Resp Exam: Clear Bilaterally, Breath Sounds Equal Cardiology CV Exam: Regular, Normal Sinus Rhythm Gastrointestinal/Abdomen GI Exam: Soft, Non-Tender, Bowel Sounds Present Extremeties Extremeties Remarks Rt foot blackish Assessment/Plan Problem List: (1) Acute renal failure ICD Codes: N17.9 - Acute kidney failure, unspecified Plan: Patient has chronic kidney disease and acute renal failure creatinine 4.85 events noted ischemic rt leg Fasciotomy/RLE Revascularized but leg look poor circulation may go for amputation Continue to hydrate this sodium is 153 2L Bolus NS per Dr. Nuno 200 cc/hr He was treated for DKA now with elevated liver enzymes, Pancreatitis, ? sepsis c reactive protein high C3 low C4 sed rate elevated seen at hemodialysis as K 7.1, UF 1 L with Rhabdomyolysis ischemic rt foot UTI klebsiella and Group B strep (2) CKD (chronic kidney disease) stage 3, GFR 30-59 ml/min ICD Codes: N18.3 - Chronic kidney disease, stage 3 (moderate) Plan: kidney ultrasound left renal cyst (3) Diabetes ICD Codes: E11.9 - Type 2 diabetes mellitus without complications Plan: History of DKA continue to monitor (4) Hypertension ICD Codes: I10 - Hypertension Status: Acute Plan: Add amlodipine 5 mg daily (5) DKA (diabetic ketoacidoses) ICD Codes: E13.10 - Other specified diabetes mellitus with ketoacidosis without coma Status: Acute Plan: Resolved (6) Hypernatremia ICD Codes: E87.0 - Hyperosmolality and hypernatremia Plan: Likely dehydration try colloids and hypotonic solutions Natacha Suarez MD Apr 24, 2017 11:02
--- NOTE | 2017-04-24 11:26 | PD.PROCEDR ---
Central Line Procedure REASON FOR PROCEDURE Central venous access PROCEDURE PERFORMED Central line placement: LIJ vein CONSENT Informed consent for procedure was obtained. The risks and benefits of the procedure were discussed to include but limited to bleeding, clot formation, infection. ANESTHESIA Local injection of 1% Lidocaine DESCRIPTION OF THE PROCEDURE The patient was placed in supine, mild Trendelenburg position. The area was exposed and cleansed with ChloraPrep, times two. Large sterile drape was used to cover the patient, with the site exposed, under sterile conditions including cap, face mask, sterile gown, and sterile gloves. On single attempt, the introducer needle was inserted with negative pressure in syringe and venous flash was obtained. The guide wire was then advanced without any restriction and the needle was removed. The dilator was used without any complications. Using Seldinger technique, a triple lumen catheter was advanced over the guide wire to a depth of 19 centimeters. The guide wire was removed. All ports were aspirated with dark venous blood return and flushed easily with sterile saline. All ports were capped. Antibiotic disc was placed around central line at puncture site. The central line was secured to the skin with two interrupted 2.0 silk sutures. The area was bandaged with sterile see-through central line bandage. RADIOLOGICAL DATA Ultrasound guidance was used to locate LIJ vein. COMPLICATIONS: No apparent complications ESTIMATED BLOOD LOSS: Less than 1 cc. Gonzalo Nuno MD Apr 24, 2017 11:26
--- NOTE | 2017-04-24 11:30 | PD.PROCEDR ---
Procedure Note Procedure Preop diagnosis: Acute renal failure, hyperkalemia, rhabdomyolysis, ischemic right lower extremity, uncontrolled diabetes mellitus Postop diagnosis: Same Informed consent: Informed consent obtained from family and documented on chart Anesthesia: 1% lidocaine for local infiltration anesthesia Procedure: Dialysis catheter placement Site: Right internal jugular vein Ultrasound guidance : Yes After sterile prepping and draping using 1% lidocaine for local infiltration anesthesia, right internal jugular vein was visualized using an ultrasound was finder and under direct visualization was cannulated using an introducer needle with dark nonpulsatile blood return. A Guidewire was passed through the introducer needle without any resistance and the needle was then removed. After making a skin neck and dilation of tract, a 20 cm dual lumen dialysis catheter was passed over the guidewire by modified seldinger's technique into the right internal jugular vein up to the 19 cm bruce and the guidewire was then removed. Good blood return obtained through both ports which were then flushed with saline and subsequently hep-locked. After suturing the catheter in place, a Bio- occlusive dressing with biopatch was applied to the site. Post procedure chest x -ray was ordered and reviewed with good placement of right IJ dialysis catheter with tip overlying SVC, no pneumothorax on postprocedure film. Patient tolerated the procedure well with no immediate complications noted. Gonzalo Nuno MD Apr 24, 2017 11:30
--- NOTE | 2017-04-24 11:56 | HHI.FPPN ---
Subjective Remarks Patient seen this morning after having emergent rt leg clot fasciotomy thrombectomy the evening prior. Patient was undergoing hemodialysis during the interview. Patient denies any pain at this time. (Mango Cheung MD R1) Objective Vitals Vital Signs Date Time Temp Pulse Resp B/P (MAP) Pulse Ox O2 Delivery O2 Flow Rate FiO2 04/24/17 06:00 92 04/24/17 04:00 98.7 90 21 116/58 (77) 98 04/24/17 04:00 90 04/24/17 02:00 101 04/24/17 00:00 104 04/24/17 00:00 97.8 104 29 89/45 (60) 97 04/23/17 23:30 103 04/23/17 22:00 100 18 114/56 (75) 97 Nasal Cannula 2 04/23/17 22:00 97.4 100 16 114/56 (75) 97 04/23/17 21:45 99 18 131/58 (82) 97 Nasal Cannula 2 04/23/17 21:30 96 18 120/60 (80) 97 Nasal Cannula 2 04/23/17 21:15 95 18 127/58 (81) 97 Nasal Cannula 2 04/23/17 21:00 93 18 129/51 (77) 97 Nasal Cannula 2 04/23/17 20:45 92 18 145/49 (81) 97 Nasal Cannula 2 04/23/17 20:39 97.5 93 16 148/76 (100) 93 04/23/17 18:00 90 04/23/17 16:00 88 04/23/17 16:00 98.2 88 24 162/73 (102) 97 04/23/17 14:00 90 04/23/17 12:25 98 04/23/17 12:00 90 04/23/17 12:00 98.1 90 18 145/79 (101) 97 I/O 04/23/17 04/23/17 04/23/17 04/24/17 04/24/17 04/24/17 07:00 15:00 23:00 07:00 15:00 23:00 Intake Total 120 ml 120 ml 1900 ml 1170 ml Output Total 400 ml 750 ml 375 ml 450 ml 1000 ml Balance -280 ml -630 ml 1525 ml 720 ml -1000 ml Intake Oral 120 ml 120 ml 120 ml IV Total 1050 ml Other 1900 ml Output Urine Total 400 ml 750 ml 175 ml 450 ml Hemodialysis 1000 ml Estimated Blood Loss 200 ml # Bowel Movements 1 (Mango Cheung MD R1) Result Diagram: 04/24/1733704/24/17337 Objective Remarks GENERAL: This is a cachectic male, laying in bed in NAD. Patient is conscious and responds to questions appropriately. Currently undergoing HD. SKIN: No rashes, ecchymoses or lesions outside of RLE as noted below. R internal jugular vas catheter and L internal jugular central line in place. HEAD: Atraumatic. Normocephalic. EYES: Pupils equal round and reactive. Extraocular motions intact. No scleral icterus. No injection or drainage. ENT: Nose without bleeding, purulent drainage or septal hematoma. Throat without erythema, tonsillar hypertrophy or exudate. Uvula midline. Airway patent. NECK: Trachea midline. No JVD or lymphadenopathy. Supple, nontender, no meningeal signs. CARDIOVASCULAR: Regular rate and rhythm without murmurs, gallops, or rubs. RESPIRATORY: Clear to auscultation. Breath sounds equal bilaterally. No wheezes , rales, or rhonchi. GASTROINTESTINAL: Abdomen soft, non-tender, nondistended. No hepato-splenomegaly , or palpable masses. No guarding. MUSCULOSKELETAL: RLE with clean bandage in place. R foot is noticeably dark, cold to the touch with no palpable pulses. Hyperpigmentation to the level of the midthigh. LLE is warm and well perfused with palpable pulses. NEUROLOGICAL: Cranial nerves II through XII intact. (Mango Cheung MD R1) A/P Assessment and Plan Patient is 67 year old Male with PMHx of HTN and DM presented to ED via EVAC due to 1 wk hx of decreased po intake. Patient found to be altered, hypertensive with blood glucose greater than 900, elevated anion gap of 29, beta hydroxy of 11.9. Patient admitted to management of DKA. Transitioned to SQ insulin on 04/22. Of note, communication with the patient has been difficult at times. [employer] technical translator was used on 04/23 as patient is primarily [place]an speaking, and the technical translator could not understand the patient. Nursing staff and medical team has been able to communicate with the patient in Portuguese successfully at times but he occasionally slurs his speech/is not understandable. On 04/23 patient was found to have significant transaminitis as well as worsening renal function. Nephrology, GI consulted. A discussion was had with the patient's on 04/23 and she stated that all of the patient's symptoms (including his R leg stiffness/loss of function) were new and that he had been found down for up to 5 hours before coming to the ER. Vascular was consulted at that time and it was noted that patient had no palpable pulses, either femoral, popliteal, dorsalis pedis or post tibial. Ultrasound revealed complete occlusion of blood flow to the R leg and patient was immediately taken to the OR for R leg clot fasciotomy thrombectomy. On 04/24 patient was found to have worsening renal function with Creatinine of 4.85 and a Potassium of 7.1. R int jugular vascular cath was placed and patient underwent HD at that time. Planning for amputation pending discussion with family in setting of worsening renal, hepatic function likely 2/2 to rhabdomyolysis * Neuro: intermittent AMS, possible CVA * Patient's states that his baseline is totally normal. Suspect possible CVA prior to ED arrival * Last normal appears to be 7AM on 04/21/2017 per * Orders for CVA workup initiated, but as patient has multiple problems currently requiring intensive treatment, several of these studies may be delayed. Brain MRI/MRA noncontrast held, Carotid US held due to jugular venous lines placed, echocardiogram ordered, PT/OT/speech evaluations. CT head negative in ED. * No previous CVA history * Lipid profile showing triglycerides 200, cholesterol 155, LDL 102, HDL 12.6, A1c 17.7 * Will initiate atorvastatin if indicated * Rehab at discharge * CV: Hx CABG remotely, Intermittent bradycardia, HTN, RLE vasculopathy * Will continue telemetry * Will get echocardiogram to further assess cardiac structure and function * HTN now being treated with amlodipine * Vascular surgery performed R leg clot fasciotomy thrombectomy on 04/23. * Planning for amputation if family is agreeable in setting of worsening renal , hepatic function likely 2/2 to rhabdomyolysis * GI: acute transaminitis * Unclear etiology as LFTs were normal on admission. * Was given Ofirmev x 1 on 04/22. Tylenol level is <2 today * Patient is asymptomatic, no jaundice or alcoholic history * Transaminases 3000s today. Bilirubin normal * Creatinine Kinase > 144,000, CK-MB 642.4, lipase 1067, GGT 14 * Findings concerning for rhabdomyolysis * Abdomen US ordered * Gastroenterology signed off on 04/24 * Hepatitis panel pending * Hyperammonemia of 75 - given Rifaximin 500 g BID and trending ammonia level * FEN/RENAL: hyponatremia, hyperkalemia, CHANELL vs CKD, hypoalbuminemia, hypercalcemia, hyperchloremic metabolic acidosis * Creatinine 4.45, eGFR 13: differential includes CKD, CHANELL. * Hypernatremia: 152 - bicarbonate drip with D5 50 mEq of bicarbonate per liter at 150 mL per hour. Worsening hypernatremia so placed on D5 at 60 mL per hour however this ended up being held for now because of worsening hyperglycemia despite insulin drip. * Abnormal K: Potassium of 7.1 on the morning of 04/24, given 2 g calcium gluconate, Kayexalate, Bicarb drip and hemodialysis initiated -> improved to 3.6. * Urine prot/creat ratio 5.06, very elevated, suspect diabetic nephropathy * Renal US normal * Nephrology consulted, appreciate recommendations * ID: UTI complicated by male gender, race, urethral injury * Leukocytosis on admission resolved * VS not showing signs of systemic infection * CXR on admission normal * Patient removed catheter traumatically on 04/21/2017 * Catheter replaced and in place since admission * Given renal and liver disease, consulted Pharmacist ammonium hydroxide operator who recommended Levaquin, will give 750mg IV q 24hr started on 04/23 * Urine culture growing Klebsiella, Group B strep * Lactic acid 4.1 * CRP 21.10 * HEME: urethral bleeding 2/2 traumatic catheter removal, rhabdomyolysis? * Patient with dark urine, now suspect this may be myoglobin rather than blood * Patient was not placed on anticoagulation at time of admission 04/21 due to urethral bleeding (due to traumatic removal of catheter by the patient). * ENDO: Diabetes * Hyperglycemia: HHS on admission, resolved on 04/22 but insulin drip resumed on 04/24. Currently being managed by critical care * A1c 17.7 * medical educator, dynamite reclaimer consulted * TSH wnl * PROPH: anticoagulation held due to traumatic urethral injury on 04/21 * Famotidine 20mg IV BID for stress ulcer prophylaxis Discharge Planning Multiple problems including emergent rt leg clot fasciotomy thrombectomy on 04/23 , numerous abnormal labs involving the kidney and liver, initiation of HD on . Patient will very likely need prolonged hospital stay and is at risk of needing amputation Seen and discussed with Dr. Nadira Mckeon (Mango Cheung MD R1) Attending Attestation Pt. was seen, examined and discussed with Dr. Cheung. I agree with the exam findings as above, and will follow along with GI, Nephrology. Appreciate vascular surgery Dr. Dillon (Nadira Mckeon MD) Problem List: (1) Hyperammonemia ICD Codes: E72.20 - Disorder of urea cycle metabolism, unspecified (2) Compartment syndrome ICD Codes: T79.A0XA - Compartment syndrome, unspecified, initial encounter (3) Diabetes mellitus ICD Codes: E11.9 - Diabetes mellitus Status: Chronic (4) Hypertension ICD Codes: I10 - Hypertension Status: Acute (5) Acute renal failure ICD Codes: N17.9 - Acute kidney failure, unspecified (6) Hypernatremia ICD Codes: E87.0 - Hyperosmolality and hypernatremia (7) Hyperkalemia ICD Codes: E87.5 - Hyperkalemia (8) UTI (urinary tract infection) ICD Codes: N39.0 - Urinary tract infection, site not specified (9) Transaminitis ICD Codes: R74.0 - Nonspecific elevation of levels of transaminase and lactic acid dehydrogenase [LDH] (Mango Cheung MD R1) Mango Cheung MD R1 Apr 24, 2017 11:56 Nadira Mckeon MD Apr 24, 2017 17:22
[2017-04-24] MEDS ORDERED: GLYCOPYRROLATE 1 MG/5 ML SYRINGE IV PUSH ONE (12:00)
[2017-04-24] MEDS ORDERED: ROCURONIUM INJ 50 MG/5 ML SYRINGE IV PUSH ONE (12:00)
[2017-04-24] MEDS ORDERED: PHENYLEPH/NS 1000 MCG/10 ML SYR IV ONE (12:00)
[2017-04-24] MEDS ORDERED: PROPOFOL 200 MG/20 ML AMP IV ONE (12:00)
[2017-04-24] MEDS ORDERED: LIDOCAINE HCL 1% PF 5 ML SYRINGE OTHER ONE (12:00)
[2017-04-24] MEDS ORDERED: NEOSTIGMINE 5 MG/5 ML SYRINGE IV PUSH ONE (12:00)
[2017-04-24] MEDS ORDERED: ceFAZolin INJ 1,000 MG VIAL IV ONE ×2 (12:00→19:42)
[2017-04-24] MEDS ORDERED: ONDANSETRON HCL 4 MG/2 ML VIAL IV ONE (12:00)
[2017-04-24] MEDS ORDERED: ePHEDrine/NS 25 MG/5 ML SYRINGE IV ONE (12:00)
--- NOTE | 2017-04-24 12:04 | OTSOAPIP ---
TIME SESSION COMPLETED: 1030 TREATMENT TIME: 0 MINS. CHART REVIEWED. INTERDISCIPLINARY COMMUNICATION: PATIENT WAS NOT AVAILABLE SECONDARY TO RECEIVING DIALYSIS AT BEDSIDE. PLAN: WILL SEE WHEN ABLE OR NEXT TREATMENT DAY. M Therapist: MIKE SUMNER/Oscar Signature on file
--- NOTE | 2017-04-24 12:25 | MP ---
cc: Jean Pierre Auguste MD DATE OF OPERATION: 04/23/2017 PREOPERATIVE DIAGNOSES: Ischemia of the right leg, occlusion of the right common iliac, external iliac, common femoral, deep femoral, superficial femoral and distal vessels. POSTOPERATIVE DIAGNOSES: Ischemia of the right leg, occlusion of the right common iliac, external iliac, common femoral, deep femoral, superficial femoral and distal vessels. OPERATIVE PROCEDURE: Common iliac, external iliac thromboembolectomy, superficial femoral artery and arterial tibial artery thromboembolectomy and retrograde posterior tibial artery thromboembolectomy, deep femoral thromboembolectomy, profundoplasty. Fasciotomy SURGEON: Jean Pierre Auguste MD ANESTHESIA: General. ESTIMATED BLOOD LOSS: 150 mL INDICATION FOR PROCEDURE: This 67-year-old gentleman presented with diabetic ketoacidosis, was found at home on the floor. He comes to the hospital in renal failure with elevated BUN and creatinine. He is treated for DKA. He is known to be diabetic. Somewhere in the process Starr, Resident discovered that patient could not move right leg and I was consulted this afternoon. Patient was seen immediately. Patient's was immediately diagnosed with occlusion of the right leg. We did ultrasound, which reveals occlusion of the total system going all the way up to the iliacs, hence the surgery. PROCEDURE IN DETAIL: The patient is prepped and draped in the usual fashion. Right groin incision made in oblique fashion and deepened down to the level of the neurovascular sheath. This one is opened. The common femoral, deep and superficial arteries are isolated and vessel loops placed around them. Vessel is obviously filled with clot and it came be seen there is no flow here. Incision is made longitudinally in the common femoral artery extending over the deep femoral artery. There is a huge amount of clot here. This is probably there for the last 2-3 days. The thigh is now entered proximally and pushed into the common femoral artery, external iliac and common iliac arteries. It is withdrawn and a huge amount of clot comes back followed by brisk blood flow. One more time the Kemi is introduced proximally and some more clot removed. At this point, there is brisk blood flow and a Satinsky clamp is applied. Now the distal end is attended. A #3 Kemi is now introduced into the deep femoral artery and a large amount of clot is removed as well as a white clot with the head of a thrombus. When this is done, the vessel is observed. Patient has a fairly tight rather sclerotic narrowing at the origin of the deep femoral artery with 3 affected. This one is dissected and profundoplasty carried out. Catheter is now passed once more down and no more clot is retrieved. This is flushed with heparinized saline. The superficial femoral artery is now entered and catheter is introduced distally all the way to the ankle. It seems to be wanting to go into anterior tibial artery and it is withdrawn retrieving massive amounts of clot. This is now folded with some back bleeding, which is a nice size. Now a #4 Kemi is introduced distally and pulled back. Some more clot is retrieved and that is it. This is now flushed with a large amount of heparinized saline. Posterior tibial artery cannot be entered and I cannot do x-ray on the table because of the orientation of the table. Therefore, the posterior tibial artery is now accessed distally with a small incision just about an inch above the ankle and isolated proximally and distally, 2-0 silk placed around it loosely and the vessel is opened with 11 blade. A #3 Kemi is now introduced retrogradely and again about 2 inches of clot is removed and the vessel is flushed. Now patient has a nice open vessel. Proximally now the common femoral artery is washed once more and then closed primarily with running 5-0 Prolene and blood flow reestablished. Blood flow comes down right away. The anterior tibial artery is readily dopplerable and posterior tibial artery bleeds nicely and briskly. This one is now closed with 6-0 Prolene. Patient obviously in occlusion for awhile, therefore, medial and lateral 3 compartments fasciotomy is carried out. Now incisions are closed with 2-0 Vicryl and 4-0 Monocryl. Dressing applied. Patient patient tolerated procedure well. At the end of the procedure, patient has a dopplerable pulse anterior and posterior tibial arteries. MD WALTER Huang/GAGE , 08:54 PM , 09:55 PM JERED
[2017-04-24 13:38] LABS: ALBUMIN 2.5 GM/DL (3.4-5.0); BICARBONATE 23.9 MEQ/L (21.0-32.0); CREATININE 3.71 MG/DL (0.60-1.30); MAGNESIUM 2.6 MG/DL (1.5-2.5); TOTAL BILIRUBIN ADULT 0.4 MG/DL (0.2-1.0); TOTAL PROTEIN 4.9 GM/DL (6.4-8.2)
--- NOTE | 2017-04-24 13:56 | HHI.CCPN ---
Subjective Remarks/Hospital Course 04/23: 67-year-old male from the [place] who presented to [facility] emergency department 04/21 and was admitted for DKA. He has h/o CKD, DM, hyperlipidemia Coronary artery disease with prior stent and CABG. He had acute kidney injury on admission and creatinine progressively worsened. On 04/23 he complained of not being able to move his right lower extremity and was noted to have a cool right lower extremity with evidence of compartment syndrome. Transaminases were elevated with AST >2000. CPK >100k. Vascular surgery consultation was obtained and he has undergone thrombectomy and R lower leg fasciotomy by Dr. Auguste. [facility] is consulted to assist with medical management. 04/24: Found to have ischemic right lower extremity with compartment syndrome. Underwent attempted revascularization and fasciotomy on 04/[address] Arrieta. Worsening renal function with worsening hyperkalemia this morning. Patient was initiated on hemodialysis following placement of Vas-Cath and central line for vascular access by il this morning. He is maintaining his blood pressure and appears to be breathing fine. He does appear delirious currently. He does open eyes and follows commands appropriately. Denies any shortness of breath or chest pain. Right lower extremity with [place] wrap all the way up to the thigh and foot appears cyanotic/mottled with dark discoloration. Proximal thigh also reveals some mottling. Objective Vital Signs Date Time Temp Pulse Resp B/P (MAP) Pulse Ox O2 Delivery O2 Flow Rate FiO2 04/24/17 06:00 92 04/24/17 04:00 98.7 21 116/58 (77) 98 04/23/17 22:00 Nasal Cannula 2 04/23/17 07:00 98 Intake and Output 04/24/17 04/24/17 04/24/17 07:59 15:59 23:59 Intake Total 1170 ml Output Total 450 ml 1000 ml Balance 720 ml -1000 ml Result Diagram: 04/24/17 0338 04/24/17 0338 Other Results Microbiology Date/Time Source Procedure Growth Status 04/22/17 17:25 Urine Catheterized Urine Urine Culture - Final Klebsiella Pneumoniae Group B Beta Strep Complete Laboratory Tests Test 04/23/17 19:42 Blood Gas Puncture Site DRAWN IN OR Blood Gas Patient Temperature 98.6 Blood Gas HCO3 18 mmol/L (22-26) Blood Gas Base Excess -8.1 mmol/L (-2-2) Blood Gas Oxygen Saturation 97 % (90-100) Arterial Blood pH 7.23 (7.380-7.420) Arterial Blood Partial Pressure CO2 45 mmHg (38-42) Arterial Blood Partial Pressure O2 260 mmHg (61-120) Arterial Blood Oxygen Content 18.9 Vol % (12.0-20.0) Arterial Blood Carboxyhemoglobin 0.9 % (0-4) Arterial Blood Methemoglobin 1.5 % (0-2) Blood Gas Hemoglobin 13.5 G/DL (12.0-16.0) Oxygen Delivery Device OR Blood Gas Ventilator Setting OR Blood Gas Inspired Oxygen 50 % Objective Remarks GENERAL: Ill-appearing patient who is laying in ISC bed. SKIN: Warm and dry. No rash HEAD: Atraumatic. Normocephalic. EYES: Pupils equal and round, reactive bilaterally. No scleral icterus. No injection or drainage. ENT: No nasal bleeding or discharge. Mucous membranes pink and moist. NECK: Trachea midline. No JVD. CARDIOVASCULAR: Tachycardic, regular, sinus tach on the monitor.. No murmurs rubs or gallops. RESPIRATORY: No accessory muscle use. Clear to auscultation. Breath sounds equal bilaterally. On 2 L nasal cannula. GASTROINTESTINAL: Abdomen soft, non-tender, nondistended. Bowel sounds present. : [place] in place with sinai urine. MUSCULOSKELETAL: Right lower extremity with palpable femoral and popliteal pulses. No palpable or dopplerable DP or posterior tibial artery pulses on the right. Foot is cool and violaceous with no movement at the toes or ankle. He has 1-2/5 hip flexion on the right. He has had a right lower leg fasciotomy and [place] wrap is in place. NEUROLOGICAL: Awake and alert. Has some confusion though follows commands appropriately. No obvious cranial nerve deficits. Normal speech. Strength is 5 out of 5 in bilateral upper extremities and left lower extremity. A/P Assessment and Plan NEURO: Acute toxic metabolic encephalopathy on admission, resolved Hyperammonemia Oxycodone as needed for pain. Dilaudid as needed for breakthrough pain. Rifaximin 550 g by mouth twice a day, f/u ammonia level. Avoid lactulose due to volume depletion I abnormalities. RESP: Tobacco abuse Nasal cannula wean as tolerated CV: Right lower leg ischemia now status post thrombectomy and fasciotomy by Dr. Auguste Coronary artery disease with prior CABG and stent Hypertension Hyperlipidemia Hypotensive postoperatively, fluid responsive Bolus 1.5 L of NS and given albumin 25 g IV. Hemodynamic monitoring via arterial line. Avoid statin due to elevated LFTs may be elevated due to muscle injury. Was on heparin drip postoperatively. This has been held by Dr. Degroot due to bleeding at the fasciotomy site. Follow-up CBC - Ordered 2 L normal saline bolus this morning and he appeared to be intravascularly depleted as noted by cc collapse with ultrasound while placing Vas-Cath. GI/liver: Transaminases elevation which likely is related to muscle injury from acute rhabdomyolysis GI has evaluated and ordered liver w/u. GGT normal, doubt liver pathology. Elevated lipase noted? Defer to GI. Patient not complaining of any abdominal pain. Nothing by mouth. FEN/RENAL: Acute rhabdomyolysis Acute kidney injury Acute hyperkalemia Acute hypernatremia Acute hypocalcemia Non-anion gap metabolic acidemia Nephrology has been following. Overnight Given 2 g calcium gluconate, 1 L normal saline bolus, Kayexalate 30 g , insulin 10 units IV, continued bicarbonate drip for potassium of 5.4. On bicarbonate drip with D5 50 mEq of bicarbonate per liter at 150 mL per hour. Worsening hypernatremia so placed on D5 at 60 mL per hour however this ended up being held for now because of worsening hyperglycemia despite insulin drip. Continue bicarbonate drip to alkalinize urine in view of severe rhabdomyolysis Treated for hyperkalemia overnight however potassium 7.1 this morning. Started on emergent hemodialysis 04/24 following Vas-Cath placement ID: UTI On IV Levaquin for UTI per family medicine. Follow-up urine culture HEME: Acute blood loss anemia Heparin drip on hold per Dr. Degroot due to bleeding at the fasciotomy site. Follow- up serial hemoglobin ENDO: Acute hyperglycemia Diabetes mellitus Changed insulin drip to algorithm 3 . PROPH: Was on heparin drip which is being held due to bleeding. Famotidine 20 mg IV every 12 hours for stress ulcer prophylaxis. ACCESS: Left radial art line 04/23 . Left IJ central line placed 04/24 Patient is critically ill with ischemic leg resulting in acute rhabdomyolysis and CHANELL which represents threat to life and limb. Intermittent hypotension requiring clinical assessment and management. Hyperkalemia requiring emergent management. Patient will remain in ISC. Discussed with Dr. Auguste and Dr. Suarez. In view of probably nonsalvageable lower extremity ischemia and severe rhabdomyolysis with worsening renal function , possible plan for amputation right lower extremity for later today. Dr. Degroot to discuss with family regarding possible amputation Critical care time 45 minutes exclusive of separately billable procedures. Gonzalo Nuno MD Apr 24, 2017 13:56
--- NOTE | 2017-04-24 15:57 | RADRPT ---
EXAM DATE/TIME: 04/24/2017 15:02 [place] COMPARISON: No previous studies available for comparison. INDICATIONS : Increased lab values. MEDICAL HISTORY : Hypercholesterolemia. Hypertension. Gastroesophageal reflux disease. Heart attack. Coronary artery di sease. Diabetes. SURGICAL HISTORY : CABG. Cardiac catheterization. Coronary stent. ENCOUNTER: Initial ACUITY: 1 day PAIN SCORE: 0/10 LOCATION: Abdomen. MEASUREMENTS: LIVER: 16.9 cm length COMMON DUCT: 5 mm RIGHT KIDNEY: 11.8 x 5.3 x 5.5 cm SPLEEN: 8.9 cm length FINDINGS: LIVER: Liver is mildly enlarged with mild increased hepatic echogenicity. No intrapelvic ductal dilatation o r focal mass. Portal vein is patent with hepatopedal flow. COMMON DUCT: No intraluminal mass or stone visualized. GALLBLADDER: Gallbladder is mildly dilated and contains gallstones with mild gallbladder wall thickening. No signi ficant pericholecystic fluid or sonographic Arriaza sign. PANCREAS: The visualized portions are within normal limits. RIGHT KIDNEY: No hydronephrosis, stone or mass. SPLEEN: No focal lesion. CONCLUSION: 1. Mild hepatomegaly with increased hepatic echogenicity likely reflecting hepatic steatosis versus m edical liver disease. 2. Cholelithiasis with mildly distended gallbladder and gallbladder wall thickening which may be chainstitch binder ginger in etiology. Further evaluation may be performed with HIDA scan if there is significant clinical concern regarding acute cholecystitis. Dmitriy Kumar MD on April 24, 2017 at 15:50 Board Certified Radiologist. This report was verified electronically.
--- NOTE | 2017-04-24 16:12 | PD.CAR.PN ---
CVT Progress Note Subjective/Hospital Course: 04/24/2017 Patient with total occlusion of the flow to her right leg underwent yesterday thromboembolectomy of the iliac and femoral systems and revascularization of the leg with fasciotomy Today while the patient has flow the leg from just above the knee down is purple and discolored It is insensate and patient has no motoric activity Muscles are discolored grayish appearing and devitalized At this point were essentially perfusing a devitalized extremity due to the length of time of occlusion of the blood flow Patient is now on dialysis consequently producing massive amounts of creatinine kinase with a massive breakdown of the muscle and of course resulting hyperkalemia and metabolic derangements I discussed this with his and this patient needs urgent above-knee amputation We will go ahead with surgery today considering that this is a nonviable extremity Objective: Vital Signs Date Time Temp Pulse Resp B/P (MAP) Pulse Ox O2 Delivery O2 Flow Rate FiO2 04/24/17 07:00 94 Nasal Cannula 2.00 04/24/17 07:00 85 04/24/17 07:00 99.7 88 22 149/65 (93) 95 04/24/17 06:00 92 04/24/17 04:00 98.7 90 21 116/58 (77) 98 04/24/17 04:00 90 04/24/17 02:00 101 04/24/17 00:00 104 04/24/17 00:00 97.8 104 29 89/45 (60) 97 04/23/17 23:30 103 04/23/17 22:00 100 18 114/56 (75) 97 Nasal Cannula 2 04/23/17 22:00 97.4 100 16 114/56 (75) 97 04/23/17 21:45 99 18 131/58 (82) 97 Nasal Cannula 2 04/23/17 21:30 96 18 120/60 (80) 97 Nasal Cannula 2 04/23/17 21:15 95 18 127/58 (81) 97 Nasal Cannula 2 04/23/17 21:00 93 18 129/51 (77) 97 Nasal Cannula 2 04/23/17 20:45 92 18 145/49 (81) 97 Nasal Cannula 2 04/23/17 20:39 97.5 93 16 148/76 (100) 93 04/23/17 18:00 90 Labs: Laboratory Tests Test 04/24/17 08:11 04/24/17 11:55 Lactic Acid Level 4.1 mmol/L (0.4-2.0) B-Hydroxybutyrate 0.12 MMOL/L (0.00-0.39) Blood Urea Nitrogen 75 MG/DL (7-18) Creatinine 3.71 MG/DL (0.60-1.30) Random Glucose 190 MG/DL (74-106) Total Protein 4.9 GM/DL (6.4-8.2) Albumin 2.5 GM/DL (3.4-5.0) Calcium Level 6.0 MG/DL (8.5-10.1) Phosphorus Level 5.0 MG/DL (2.5-4.9) Magnesium Level 2.6 MG/DL (1.5-2.5) Alkaline Phosphatase 81 U/L (45-117) Aspartate Amino Transf (AST/SGOT) 2694 U/L (15-37) Alanine Aminotransferase (ALT/SGPT) 437 U/L (12-78) Total Bilirubin 0.4 MG/DL (0.2-1.0) Sodium Level 152 MEQ/L (136-145) Potassium Level 3.6 MEQ/L (3.5-5.1) Chloride Level 114 MEQ/L (98-107) Carbon Dioxide Level 23.9 MEQ/L (21.0-32.0) Anion Gap 14 MEQ/L (5-15) Estimat Glomerular Filtration Rate 16 ML/MIN (>89) Protein Corrected Calcium 7.0 MG/DL (8.5-10.1) Result Diagram: 04/24/17 0338 04/24/17 1155 Jean Pierre Auguste MD Apr 24, 2017 16:12
--- NOTE | 2017-04-24 17:32 | ECHRPT ---
Indication: CVA/TIA CONCLUSIONS Wall thickness is measured at the upper limits of normal. Normal left ventricular size. There is trace tricuspid valve regurgitation. The estimated pulmonary arterial pressure is 22 mmHg. The pulmonary valve is not well visualized. BP: 116 / 58 HR: 90 Rhythm: Sinus MEASUREMENTS (Male / Female) Normal Values Technical Quality:Good 2D ECHO LV Diastolic Diameter PLAX 3.7 cm 4.2 - 5.9 / 3.9 - 5.3 cm LV Systolic Diameter PLAX 2.6 cm IVS Diastolic Thickness 1.0 cm 0.6 - 1.0 / 0.6 - 0.9 cm LVPW Diastolic Thickness 1.1 cm 0.6 - 1.0 / 0.6 - 0.9 cm LV Relative Wall Thickness 0.6 RV Internal Dim ED PLAX 3.3 cm LVOT Diameter 2.1 cm LA Systolic Diameter LX 3.2 cm 3.0 - 4.0 / 2.7 - 3.8 cm M-MODE Aortic Root Diameter MM 3.4 cm LA Systolic Diameter MM 3.9 cm LA Ao Ratio MM 1.1 AV Cusp Separation MM 1.7 cm DOPPLER AV Peak Velocity 174.0 cm/s AV Peak Gradient 12.1 mmHg LVOT Peak Velocity 144.0 cm/s LVOT Peak Gradient 8.3 mmHg AV Area Cont Eq pk 2.9 cm MV Area PHT 2.2 cm Mitral E Point Velocity 57.6 cm/s Mitral A Point Velocity 80.1 cm/s Mitral E to A Ratio 0.7 LV E' Lateral Velocity 13.9 cm/s Mitral E to LV E' Lateral Ratio 4.1 LV E' Septal Velocity 8.4 cm/s Mitral E to LV E' Septal Ratio 6.9 TR Peak Velocity 175.0 cm/s TR Peak Gradient 12.3 mmHg FINDINGS LEFT VENTRICLE The left ventricular systolic function is normal with an estimated ejection fraction in the range of 60-65%. Wall thickness is measured at the upper limits of normal. Normal left ventricular size. RIGHT VENTRICLE Normal right ventricular size and systolic function. LEFT ATRIUM The left atrial size is normal. RIGHT ATRIUM The right atrial size is normal. ATRIAL SEPTUM Normal atrial septal thickness without atrial level shunting by limited color doppler interrogation. AORTA The aortic root and proximal ascending aorta are normal in size on limited imaging. MITRAL VALVE Structurally normal mitral valve. No mitral valve stenosis or regurgitation. AORTIC VALVE Trileaflet aortic valve. No aortic valve stenosis or regurgitation. TRICUSPID VALVE There is trace tricuspid valve regurgitation. The estimated pulmonary arterial pressure is 22 mmHg. PULMONARY VALVE The pulmonary valve is not well visualized. VESSELS The inferior vena cava is normal in size. PERICARDIUM No pericardial effusion. Lisandro Hartley MD, FACC (Electronically Signed) Final Date:24 April 2017 17:31
--- NOTE | 2017-04-24 18:09 | PD.CONS ---
History of Present Illness Service Podiatry Consult Requested By Molina Reason for Consult Right ischemic limb second opinion Primary Care Physician Unknown Diagnoses: History of Present Illness Patient fell at home and was found the next day. He was brought to hospital and found to have very elevated blood sugars. He continued to have discoloration to right lower extremity and vascular was consulted and limb was found to be too far gone to salvage. Podiatry consulted for second opinion regarding amputation. Past Family Social History Allergies: Coded Allergies: No Known Allergies (Verified Allergy, Unknown, 04/22/17) Past Medical History Diabetes Hypertension Coronary artery disease Hyperlipidemia Past Surgical History CABG Stent placement Active Ordered Medications Current Medications Medications (Trade) Dose Ordered Sig/Erick Route Start Time Stop Time Status Last Admin (NS Flush) 2 ml UNSCH PRN IV FLUSH 04/21/17 20:45 (NS Flush) 2 ml BID IV FLUSH 04/21/17 21:00 04/23/17 23:30 Sodium Phosphate 15 mmol/Sodium Chloride 105 ml @ 25 mls/hr UNSCH PRN IV 04/21/17 21:15 Miscellaneous Information 1 [id number] XX 04/21/17 21:15 04/22/17 03:07 (Chlorhexidine 2% Cloth) 3 pack Taper DAILY@04 TOP 04/22/17 04:00 04/18/18 03:59 (Chlorhexidine 2% Cloth) 3 pack UNSCH PRN TOP 04/21/17 21:15 (Apresoline Inj) 10 mg Q6H PRN IV PUSH 04/21/17 21:30 04/23/17 01:05 (Zofran Inj) 4 mg Q8HR PRN IV PUSH 04/22/17 17:00 Levofloxacin/ Dextrose 100 ml @ 100 mls/hr Q48H IV 04/25/17 16:00 (Free Water) 200 ml Q6HR PO 04/23/17 18:00 04/24/17 06:00 (Pepcid Inj) 10 mg Q12HR IV PUSH 04/23/17 21:00 04/24/17 00:03 Sodium Bicarbonate 50 meq/Dextrose 1,000 ml @ 150 mls/hr Q6H40M IV 04/23/17 17:15 04/24/17 17:15 Heparin Sodium/ Dextrose 250 ml @ 12.438 mls/ hr TITRATE PRN IV 04/23/17 20:45 04/23/17 23:04 Miscellaneous Information ALL NURSING DEPARTME... UNSCH PRN .XX 04/23/17 21:30 04/24/17 21:29 Dextrose 1,000 ml @ 60 mls/hr [id number] IV 04/23/17 23:15 Future Hold 04/23/17 00:23 (Roxicodone) 5 mg Q4H PRN PO 04/23/17 23:30 (Roxicodone) 10 mg Q4H PRN PO 04/23/17 23:30 (Dilaudid Pf Inj) 0.2 mg Q4H PRN IV PUSH 04/23/17 23:30 04/24/17 01:48 (Xifaxan) 550 mg BID PO 04/24/17 09:00 Sodium Chloride 1,000 ml @ 0 mls/hr Q0M PRN OTHER 04/24/17 06:57 (Heparin Inj) 8,000 units UNSCH PRN IV FLUSH 04/24/17 07:00 Sodium Chloride 1,000 ml @ 200 mls/hr Q5H PRN IV 04/24/17 06:57 Sodium Chloride 1,000 ml @ 0 mls/hr Q0M PRN OTHER 04/24/17 06:57 (Mannitol Inj) 12.5 gm UNSCH PRN IV 04/24/17 07:00 Albumin Human 100 ml @ 60 mls/hr UNSCH PRN IV 04/24/17 07:00 04/24/17 09:22 (NS Flush) 5 ml UNSCH PRN IV FLUSH 04/24/17 07:00 (Heparin Inj) UNSCH PRN .XX 04/24/17 07:00 (Gentamicin Inj) 20 mg UNSCH PRN OTHER 04/24/17 07:00 (Zofran Inj) 4 mg UNSCH PRN IV PUSH 04/24/17 07:00 (Tylenol) 650 mg UNSCH PRN PO 04/24/17 07:00 (Benadryl) 25 mg UNSCH PRN PO 04/24/17 07:00 (Nitrostat Sl) 0.4 mg UNSCH PRN SL 04/24/17 07:00 (Catapres) 0.1 mg UNSCH PRN PO 04/24/17 07:00 (Gelfoam 12 Mm/7 Mm Top) 1 foam UNSCH PRN TOP 04/24/17 07:00 (Epogen Inj) 4,000 units UNSCH PRN IV PUSH 04/24/17 07:45 Insulin Human Regular 100 units/ Sodium Chloride 100 ml @ 2 mls/hr TITRATE PRN IV 04/24/17 10:15 (D50w (Vial) Inj) 50 ml UNSCH PRN IV PUSH 04/24/17 10:15 Family History Noncontributory Social History History of smoking denies alcohol Physical Exam Vital Signs Vital Signs Date Time Temp Pulse Resp B/P (MAP) Pulse Ox O2 Delivery O2 Flow Rate FiO2 04/24/17 16:00 88 04/24/17 16:00 99.7 90 14 116/57 (76) 98 04/24/17 12:00 88 04/24/17 12:00 99.7 88 22 149/65 (93) 95 04/24/17 10:00 99.7 88 22 149/65 (93) 95 04/24/17 10:00 88 04/24/17 08:00 88 04/24/17 08:00 99.7 88 22 149/65 (93) 95 04/24/17 07:00 94 Nasal Cannula 2.00 04/24/17 07:00 85 04/24/17 07:00 99.7 88 22 149/65 (93) 95 04/24/17 06:00 92 04/24/17 04:00 98.7 90 21 116/58 (77) 98 04/24/17 04:00 90 04/24/17 02:00 101 04/24/17 00:00 104 04/24/17 00:00 97.8 104 29 89/45 (60) 97 04/23/17 23:30 103 04/23/17 22:00 100 18 114/56 (75) 97 Nasal Cannula 2 04/23/17 22:00 97.4 100 16 114/56 (75) 97 04/23/17 21:45 99 18 131/58 (82) 97 Nasal Cannula 2 04/23/17 21:30 96 18 120/60 (80) 97 Nasal Cannula 2 04/23/17 21:15 95 18 127/58 (81) 97 Nasal Cannula 2 04/23/17 21:00 93 18 129/51 (77) 97 Nasal Cannula 2 04/23/17 20:45 92 18 145/49 (81) 97 Nasal Cannula 2 04/23/17 20:39 97.5 93 16 148/76 (100) 93 Physical Exam Right lower extremity cold and necrotic with significant edema from distal thigh to toes. Bullae noted at margins. No purulence noted. No foul odor. Nonpalpable pulses. No capillary refill to digits. Laboratory Laboratory Tests Test 04/23/17 19:42 04/23/17 20:04 04/23/17 21:42 04/24/17 00:39 Blood Gas Puncture Site DRAWN IN OR Blood Gas Patient Temperature 98.6 Blood Gas HCO3 18 Blood Gas Base Excess -8.1 Blood Gas Oxygen Saturation 97 Arterial Blood pH 7.23 Arterial Blood Partial Pressure CO2 45 Arterial Blood Partial Pressure O2 260 Arterial Blood Oxygen Content 18.9 Arterial Blood Carboxyhemoglobin 0.9 Arterial Blood Methemoglobin 1.5 Blood Gas Hemoglobin 13.5 Oxygen Delivery Device OR Blood Gas Ventilator Setting OR Blood Gas Inspired Oxygen 50 White Blood Count 5.1 Red Blood Count 3.72 Hemoglobin 11.3 12.6 Hematocrit 33.4 37.5 Mean Corpuscular Volume 90.0 Mean Corpuscular Hemoglobin 30.4 Mean Corpuscular Hemoglobin Concent 33.7 Red Cell Distribution Width 14.9 Platelet Count 72 Mean Platelet Volume 9.2 Neutrophils (%) (Auto) 81.3 Lymphocytes (%) (Auto) 14.5 Monocytes (%) (Auto) 3.1 Eosinophils (%) (Auto) 0.7 Basophils (%) (Auto) 0.4 Neutrophils # (Auto) 4.1 Lymphocytes # (Auto) 0.7 Monocytes # (Auto) 0.2 Eosinophils # (Auto) 0.0 Basophils # (Auto) 0.0 CBC Comment AUTO DIFF Differential Total Cells Counted 100 Neutrophils % (Manual) 55 Band Neutrophils % 24 Lymphocytes % 10 Monocytes % 1 Eosinophils % 2 Neutrophils # (Manual) 4.4 Metamyelocytes 5 Myelocytes 3 Differential Comment FINAL DIFF MANUAL Toxic Granulation 1+ Toxic Vacuolation PRESENT Dohle Bodies PRESENT Platelet Estimate LOW Platelet Morphology Comment NORMAL Blood Urea Nitrogen 123 Creatinine 4.21 Random Glucose 246 Total Protein 4.1 Albumin 2.0 Calcium Level 6.6 Alkaline Phosphatase 93 Aspartate Amino Transf (AST/SGOT) 1442 Alanine Aminotransferase (ALT/SGPT) 249 Total Bilirubin 0.3 Sodium Level 162 Potassium Level 5.4 Chloride Level 126 Carbon Dioxide Level 22.6 Anion Gap 13 Estimat Glomerular Filtration Rate 14 Protein Corrected Calcium 8.2 Prothrombin Time 12.1 Prothromb Time International Ratio 1.2 Activated Partial Thromboplast Time 67.1 Test 04/24/17 03:38 04/24/17 08:11 04/24/17 11:55 White Blood Count 6.1 Red Blood Count 4.14 Hemoglobin 12.4 Hematocrit 37.5 Mean Corpuscular Volume 90.5 Mean Corpuscular Hemoglobin 29.9 Mean Corpuscular Hemoglobin Concent 33.0 Red Cell Distribution Width 15.1 Platelet Count 70 Mean Platelet Volume 10.2 Neutrophils (%) (Auto) 87.7 Lymphocytes (%) (Auto) 6.1 Monocytes (%) (Auto) 5.9 Eosinophils (%) (Auto) 0.2 Basophils (%) (Auto) 0.1 Neutrophils # (Auto) 5.3 Lymphocytes # (Auto) 0.4 Monocytes # (Auto) 0.4 Eosinophils # (Auto) 0.0 Basophils # (Auto) 0.0 CBC Comment AUTO DIFF Differential Total Cells Counted 100 Neutrophils % (Manual) 62 Band Neutrophils % 26 Lymphocytes % 5 Monocytes % 7 Neutrophils # (Manual) 5.4 Differential Comment FINAL DIFF MANUAL Platelet Estimate LOW Platelet Morphology Comment NORMAL Red Cell Morphology Comment NORMAL Erythrocyte Sedimentation Rate 21 Activated Partial Thromboplast Time 31.7 Blood Urea Nitrogen 120 75 Creatinine 4.85 3.71 Random Glucose 455 190 Total Protein 4.8 4.9 Albumin 2.2 2.5 Calcium Level 6.0 6.0 Phosphorus Level 8.6 5.0 Magnesium Level 3.2 2.6 Alkaline Phosphatase 98 81 Aspartate Amino Transf (AST/SGOT) 3200 2694 Alanine Aminotransferase (ALT/SGPT) 492 437 Total Bilirubin 0.3 0.4 Sodium Level 153 152 Potassium Level 7.1 3.6 Chloride Level 120 114 Carbon Dioxide Level 18.4 23.9 Anion Gap 15 14 Estimat Glomerular Filtration Rate 12 16 Protein Corrected Calcium 7.1 7.0 Ammonia 75 C-Reactive Protein 21.10 Triglycerides Level 200 Cholesterol Level 155 LDL Cholesterol 102 HDL Cholesterol 12.6 Cholesterol/HDL Ratio 12.30 Complement C3 72 Complement C4 22 Lactic Acid Level 4.1 B-Hydroxybutyrate 0.12 Date/Time Source Procedure Growth Status 04/22/17 17:25 Urine Catheterized Urine Urine Culture - Final Klebsiella Pneumoniae Group B Beta Strep Complete Result Diagram: 04/24/17 0338 04/24/17 1155 Imaging Last 72 hours Impressions Liver Ultrasound 04/24/17 0000 Signed Impressions: Service Date/Time: April 15:02 - CONCLUSION: 1. Mild hepatomegaly with increased hepatic echogenicity likely reflecting hepatic steatosis versus medical liver disease. 2. Cholelithiasis with mildly distended gallbladder and gallbladder wall thickening which may be chronic in etiology. Further evaluation may be performed with HIDA scan if there is significant clinical concern regarding acute cholecystitis. Dmitriy Kumar MD Chest X-Ray 04/24/17 0000 Signed Impressions: Service Date/Time: April 08:20 - CONCLUSION: Right internal jugular vas catheter and left internal jugular central line are in good positions with their tips at the junction of the superior vena cava and right atrium. No pneumothorax is noted. Red Toro MD Chest X-Ray 04/23/17 0000 Signed Impressions: Service Date/Time: Sunday, April 23, 2017 23:10 - CONCLUSION: No acute disease. Chris Sotomayor Jr., MD Renal Ultrasound 04/22/17 0000 Signed Impressions: Service Date/Time: Saturday, April 22, 2017 21:27 - CONCLUSION: No obstructive uropathy or other acute abnormality. Incidentally seen benign-appearing left renal cyst. Ash Mason MD Assessment and Plan Assessment and Plan Ischemic right leg Agree with plan to OR tonight for above-knee amputation No limb salvage options available. Eliu Chow DPM Apr 24, 2017 18:09
[2017-04-24] MEDS ORDERED: fentaNYL CITRATE 250 MCG/5 ML AMP ONE (18:14)
[2017-04-24] MEDS ORDERED: DO NOT ADM ANY ANTICOAGULANT DRUGS PRN (20:30)
[2017-04-24] MEDS: RIFAXIMIN 550 MG TAB PO SCH (21:00)
[2017-04-24] MEDS ORDERED: *morphine SULFATE 4 MG/ML PERIprocedure ONLY ONE (21:24)
[2017-04-24] MEDS: SODIUM CHLORIDE 0.9% FLUSH 10 ML FLUSH IV FLUSH SCH (22:25)
[2017-04-25] VITALS (16 sets, daily range): BP systolic 100–163; BP diastolic 42–56; PULSE 69–117; RESP 12–18; TEMP 97.9–99.6; O2SAT 96–100
[2017-04-25] MEDS: CHLORHEXIDINE GLUCONATE 2 % 1 PACK (2 CLOTHS) TOP SCH (04:00)
[2017-04-25] MEDS: HYDROmorphone HCL PF 2 MG/ML VIAL IV PUSH PRN ×2 (04:05→20:17)
[2017-04-25] MEDS: FREE WATER PO SCH ×4 (04:06→18:00)
--- NOTE | 2017-04-25 04:28 | MP ---
cc: Jean Pierre Auguste MD DATE OF OPERATION: 04/24/2017 PREOPERATIVE DIAGNOSIS: Status post revascularization of the right leg, massive myoglobinuria, renal failure, respiratory insufficiency, devitalized right leg. POSTOPERATIVE DIAGNOSIS: Status post revascularization of the right leg, massive myoglobinuria, renal failure, respiratory insufficiency, devitalized right leg. OPERATIVE PROCEDURE: Urgent right above-knee amputation with wound VAC placement, guillotine type. SURGEON: Jean Pierre Auguste MD. ANESTHESIA: General. ESTIMATED BLOOD LOSS: 150 mL. INDICATIONS FOR PROCEDURE: This unfortunate gentleman underwent yesterday revascularization of the right leg, which was deprived of blood flow for at least 3 days. Postoperatively, the patient did well systemically; however, he developed worsening elevation of CPK and massive myoglobinuria as the result of release of toxic substances from the right leg and breakdown of the muscle. Despite fasciotomy, the leg is swollen, insensate, and immobile as before the surgery. At this point, this is devitalized extremity and has urgently to be removed. DESCRIPTION OF PROCEDURE: The patient was prepped and draped in usual fashion. A circumferential incision is made above the knee, at which point is noted muscle here is completely black and clearly nonviable. A second incision is made higher up, where the muscle appears to be viable. This one is carried down sharply with the amputation knife anteriorly, transecting the quadriceps muscles and the vastus medialis group. Femoral artery is clamped, divided, and ligated. Femoral vein is clamped, divided, and ligated with 0 Vicryl stick ties. The incision is carried now down to the femur, which is freed up, periosteum elevated about 2 inches above the level of incision, and then with oscillating saw, the femur is transected. Posterior flap is created, again with amputation knife. Sciatic nerve is cut sharply, then pulled out, cut, and allowed to retract. Meticulous hemostasis is now obtained with 0 Vicryl and 2-0 Vicryl stick ties, [id number]. Area is irrigated with saline and muscle observed. Most musculature seems to be viable, with some questionable viability of the vastus medialis, which appears to be sort of viable, slightly dusky. Clearly, due to the massive swelling, this incision cannot be closed. Therefore, wound VAC is applied and the patient is taken out of the operating room in a stable condition. MD WALTER Huang/SHANE , 03:43 AM , 04:28 AM
[2017-04-25] MEDS: DEXTROSE 5% IV SCH ×2 (04:54)
[2017-04-25] MEDS: WATE IV SCH ×2 (04:54)
[2017-04-25] MEDS: SODIUM BICARBONATE IV SCH ×2 (04:54)
[2017-04-25 05:39] LABS: MEAN CELL VOLUME 89.3 FL (80.0-100.0); MEAN CORPUSCULAR HEMOGLOBIN 30.1 PG (27.0-34.0); MEAN CORPUSCULAR HGB CONC 33.7 % (32.0-36.0); MEAN PLATELET VOLUME 8.8 FL (7.0-11.0); PLATELET COUNT 44 TH/MM3 (150-450); RED BLOOD COUNT 2.28 MIL/MM3 (4.50-5.90); RED CELL DISTRIBUTION WIDTH 14.4 % (11.6-17.2); WHITE BLOOD COUNT 6.4 TH/MM3 (4.0-11.0)
[2017-04-25 05:51] LABS: HEMATOCRIT 20.4 % (39.0-51.0); HEMOGLOBIN 6.9 GM/DL (13.0-17.0)
[2017-04-25 06:55] LABS: ALBUMIN 1.7 GM/DL (3.4-5.0); BICARBONATE 29.5 MEQ/L (21.0-32.0); CALCIUM 5.4 MG/DL (8.5-10.1); CREATININE 4.59 MG/DL (0.60-1.30); TOTAL BILIRUBIN ADULT 0.2 MG/DL (0.2-1.0); TOTAL PROTEIN 3.8 GM/DL (6.4-8.2)
[2017-04-25 06:57] LABS: CALCIUM-PROTEIN CORRECTED 6.9 MG/DL (8.5-10.1)
[2017-04-25 07:49] LABS: BANDS 20 % (0-6); LYMPHOCYTES 21 % (9-44); MONOCYTES 5 % (0-8); NEUTROPHIL # MANUAL DIFF 4.6 TH/MM3 (1.8-7.7); POLYS (SEG NEUTROPHILS) 52 % (16-70)
[2017-04-25] MEDS ORDERED: DEXTROSE 50% IN WATER 50 ML VIAL(D50) IV PUSH PRN (08:15)
[2017-04-25] MEDS ORDERED: GLUCAGON 1 MG/ML VIAL OTHER PRN (08:15)
--- NOTE | 2017-04-25 08:16 | HHI.CCPN ---
Subjective Remarks/Hospital Course 04/23: 67-year-old male from the [place] who presented to [facility] emergency department 04/21 and was admitted for DKA. He has h/o CKD, DM, hyperlipidemia Coronary artery disease with prior stent and CABG. He had acute kidney injury on admission and creatinine progressively worsened. On 04/23 he complained of not being able to move his right lower extremity and was noted to have a cool right lower extremity with evidence of compartment syndrome. Transaminases were elevated with AST >2000. CPK >100k. Vascular surgery consultation was obtained and he has undergone thrombectomy and R lower leg fasciotomy by Dr. Auguste. [facility] is consulted to assist with medical management. 04/24: Found to have ischemic right lower extremity with compartment syndrome. Underwent attempted revascularization and fasciotomy on 04/[address] Arrieta. Worsening renal function with worsening hyperkalemia this morning. Patient was initiated on hemodialysis following placement of Vas-Cath and central line for vascular access by mo this morning. He is maintaining his blood pressure and appears to be breathing fine. He does appear delirious currently. He does open eyes and follows commands appropriately. Denies any shortness of breath or chest pain. Right lower extremity with [place] wrap all the way up to the thigh and foot appears cyanotic/mottled with dark discoloration. Proximal thigh also reveals some mottling. 04/25: S/P amputation. Acid/base balance much improved. Hgb < 7, will transfuse 1 unit. Objective Vital Signs Date Time Temp Pulse Resp B/P (MAP) Pulse Ox O2 Delivery O2 Flow Rate FiO2 04/25/17 06:00 74 04/25/17 04:00 98.7 16 100 139/53 (81) 04/24/17 23:30 Nasal Cannula 3.00 04/23/17 07:00 98 Intake and Output 04/25/17 04/25/17 04/26/17 08:00 16:00 00:00 Output Total 600 ml Balance -600 ml Result Diagram: 04/25/17 0530 04/25/17 0530 Other Results Microbiology Date/Time Source Procedure Growth Status 04/22/17 17:25 Urine Catheterized Urine Urine Culture - Final Klebsiella Pneumoniae Group B Beta Strep Complete Objective Remarks GENERAL: Ill-appearing patient. SKIN: Warm and dry. No rash HEAD: Atraumatic. Normocephalic. EYES: Pupils equal and round, reactive bilaterally. No scleral icterus. No injection or drainage. ENT: No nasal bleeding or discharge. Mucous membranes pink and moist. NECK: Trachea midline. No airway obstruction. CARDIOVASCULAR: Tachycardic, regular, sinus tach on the monitor.. No murmurs rubs or gallops. No JVD. RESPIRATORY: No accessory muscle use. Clear to auscultation. Breath sounds equal bilaterally. On 2 L nasal cannula. GASTROINTESTINAL: Abdomen soft, non-tender, nondistended. Bowel sounds present. : [place] in place with sinai urine. MUSCULOSKELETAL: s/p right leg amputation. NEUROLOGICAL: Awake and alert. Some confusion though follows commands appropriately. No obvious cranial nerve deficits. Normal speech. Strength is 5 out of 5 in bilateral upper extremities and left lower extremity. A/P Assessment and Plan NEURO: Acute toxic metabolic encephalopathy on admission, resolved Hyperammonemia Oxycodone as needed for pain. Dilaudid as needed for breakthrough pain. Rifaximin 550 g by mouth twice a day, f/u ammonia level. Avoid lactulose due to volume depletion I abnormalities. RESP: Tobacco abuse Nasal cannula wean as tolerated CV: Right lower leg ischemia now status post thrombectomy and fasciotomy by Dr. Auguste Coronary artery disease with prior CABG and stent Hypertension Hyperlipidemia Hypotensive postoperatively, fluid responsive Bolus 1.5 L of NS and given albumin 25 g IV. Hemodynamic monitoring via arterial line. Avoid statin due to elevated LFTs may be elevated due to muscle injury. Was on heparin drip postoperatively. This has been held by Dr. Degroot due to bleeding at the fasciotomy site. Follow-up CBC - Ordered 2 L normal saline bolus this morning and he appeared to be intravascularly depleted as noted by cc collapse with ultrasound while placing Vas-Cath. GI/liver: Transaminases elevation which likely is related to muscle injury from acute rhabdomyolysis GI has evaluated and ordered liver w/u. GGT normal, doubt liver pathology. Elevated lipase noted? Defer to GI. Patient not complaining of any abdominal pain. Nothing by mouth. FEN/RENAL: Acute rhabdomyolysis Acute kidney injury Acute hyperkalemia Acute hypernatremia Acute hypocalcemia Non-anion gap metabolic acidemia Nephrology has been following. Overnight Given 2 g calcium gluconate, 1 L normal saline bolus, Kayexalate 30 g , insulin 10 units IV, continued bicarbonate drip for potassium of 5.4. On bicarbonate drip with D5 50 mEq of bicarbonate per liter at 150 mL per hour. Worsening hypernatremia so placed on D5 at 60 mL per hour however this ended up being held for now because of worsening hyperglycemia despite insulin drip. Continue bicarbonate drip to alkalinize urine in view of severe rhabdomyolysis Treated for hyperkalemia overnight however potassium 7.1 this morning. Started on emergent hemodialysis 04/24 following Vas-Cath placement D/C bicarb gtt. Ca 1 gm iv ID: UTI On IV Levaquin for UTI per family medicine. Follow-up urine culture HEME: Acute blood loss anemia Heparin drip on hold per Dr. Degroot due to bleeding at the fasciotomy site. Follow- up serial hemoglobin ENDO: Acute hyperglycemia Diabetes mellitus D/C insulin drip to algorithm 3 . Start SSI PROPH: Was on heparin drip which is being held due to bleeding. Famotidine 20 mg IV every 12 hours for stress ulcer prophylaxis. ACCESS: Left radial art line 04/23 . Left IJ central line placed 04/24 Patient is critically ill with acute rhabdomyolysis and CHANELL. Intermittent hypotension still requiring clinical assessment and management. Hyperkalemia requiring emergent management. Critical care 38 mins Marc Moulton MD Apr 25, 2017 08:16
[2017-04-25] MEDS ORDERED: CALCIUM GLUCONATE INJ 1 GM in SODIUM CHLORIDE 0.9% INJ 100 ML IV ONE (08:30)
[2017-04-25] MEDS: RIFAXIMIN 550 MG TAB PO SCH ×2 (09:00→20:19)
[2017-04-25] MEDS: SODIUM CHLORIDE 0.9% FLUSH 10 ML FLUSH IV FLUSH SCH ×2 (09:00→20:19)
[2017-04-25] MEDS: INSULIN ASPART SUPPLEMENTAL SCALE SQ SCH ×3 (09:00→20:18)
[2017-04-25] MEDS: FAMOTIDINE 20 MG/2 ML VIAL IV PUSH SCH ×2 (09:54→20:17)
--- NOTE | 2017-04-25 10:48 | HHI.FPPN ---
Subjective Remarks Patient seen and examined this morning. He is currently being managed by Critical Care, Vascular Sx, and Nephrology He denies pain He appears to be delirious on examination, but is oriented to person. He states it is 1918 but knows he is in the hospital. (Roma Armijo MD) Objective Vitals Vital Signs Date Time Temp Pulse Resp B/P (MAP) Pulse Ox O2 Delivery O2 Flow Rate FiO2 04/25/17 10:13 97.9 84 12 124/50 100 04/25/17 08:48 98.5 95 17 132/46 100 04/25/17 06:00 74 04/25/17 04:00 84 04/25/17 04:00 98.7 84 16 100 139/53 (81) 04/25/17 02:00 88 04/25/17 00:00 98.5 78 14 100 163/54 (90) 04/25/17 00:00 78 04/24/17 23:30 100 Nasal Cannula 3.00 04/24/17 22:00 100 Nasal Cannula 2.00 04/24/17 22:00 82 04/24/17 22:00 98.6 82 16 100 134/48 (76) 04/24/17 22:00 100 Nasal Cannula 2.00 04/24/17 21:40 97.7 94 16 112/56 (74) 99 Nasal Cannula 2 04/24/17 21:00 90 14 116/52 (73) 98 Nasal Cannula 2 04/24/17 20:38 98.4 101 14 109/54 (72) 100 Nasal Cannula 6 04/24/17 18:00 82 04/24/17 16:00 88 04/24/17 16:00 99.7 90 14 116/57 (76) 98 04/24/17 12:00 88 04/24/17 12:00 99.7 88 22 149/65 (93) 95 I/O 04/24/17 04/24/17 04/24/17 04/25/17 04/25/17 04/25/17 07:00 15:00 23:00 07:00 15:00 23:00 Intake Total 1170 ml 5310 ml 430 ml Output Total 450 ml 1000 ml 3250 ml 600 ml Balance 720 ml -1000 ml 2060 ml -600 ml 430 ml Intake Oral 120 ml IV Total 1050 ml 4110 ml Packed Cells 400 ml Blood Product IV Normal Saline Flush 30 ml Other 1200 ml Output Urine Total 450 ml 550 ml 400 ml Stool Total 0 ml 0 ml Drainage Total 200 ml Hemodialysis 1000 ml 2500 ml Estimated Blood Loss 200 ml (Roma Armijo MD) Result Diagram: 04/25/17 0530 04/25/17 0530 Imaging Last Impressions Liver Ultrasound 04/24/17 0000 Signed Impressions: Service Date/Time: April 15:02 - CONCLUSION: 1. Mild hepatomegaly with increased hepatic echogenicity likely reflecting hepatic steatosis versus medical liver disease. 2. Cholelithiasis with mildly distended gallbladder and gallbladder wall thickening which may be chronic in etiology. Further evaluation may be performed with HIDA scan if there is significant clinical concern regarding acute cholecystitis. Dmitriy Kumar MD Chest X-Ray 04/24/17 0000 Signed Impressions: Service Date/Time: April 08:20 - CONCLUSION: Right internal jugular vas catheter and left internal jugular central line are in good positions with their tips at the junction of the superior vena cava and right atrium. No pneumothorax is noted. Red Toro MD Renal Ultrasound 04/22/17 0000 Signed Impressions: Service Date/Time: Saturday, April 22, 2017 21:27 - CONCLUSION: No obstructive uropathy or other acute abnormality. Incidentally seen benign-appearing left renal cyst. Ash Mason MD Head CT 04/21/17 0000 Signed Impressions: Service Date/Time: Friday, April 21, 2017 18:29 - CONCLUSION: Normal noncontrast head CT. Ash Mason MD Objective Remarks GENERAL: This is a cachectic male, laying in bed in [facility]. Patient is conscious but confused. SKIN: No rashes, ecchymoses or lesions outside of RLE as noted below. R internal jugular vas catheter and L internal jugular central line in place. HEAD: Atraumatic. Normocephalic. EYES: Pupils equal round and reactive. Extraocular motions intact. No scleral icterus. No injection or drainage. ENT: Nose without bleeding, purulent drainage or septal hematoma. Throat without erythema, tonsillar hypertrophy or exudate. Uvula midline. Airway patent. NECK: Trachea midline. No JVD or lymphadenopathy. Supple, nontender, no meningeal signs. CARDIOVASCULAR: Regular rate and rhythm without murmurs, gallops, or rubs. RESPIRATORY: Clear to auscultation. Breath sounds equal bilaterally. No wheezes , rales, or rhonchi. GASTROINTESTINAL: Abdomen soft, non-tender, nondistended. No hepato-splenomegaly , or palpable masses. No guarding. MUSCULOSKELETAL: RLE with [id number] amputation with wound vac in place. Skin is warm above level of amputation. LLE warm to touch, +Doppler pulse at DP per RN. NEUROLOGICAL: Cranial nerves grossly intact. Moving LLE and upper extremities spontaneously Medications and IVs Inpatient Medications Acetaminophen (Tylenol) 650 mg UNSCH PRN PO for headach, pain, temp > 101F; Start 04/24/17 at 07:00 Albumin Human 100 ml @ 60 mls/hr UNSCH PRN IV WITH DIALYSIS Last administered on 04/24/17at 09:22; Start 04/24/17 at 07:00 Albuterol Sulfate (Albuterol Neb) 2.5 mg ONCE ONCE NEB Last administered on at 06:50; Start 04/24/17 at 06:30; Stop 04/24/17 at 06:31; Status DC Amlodipine Besylate (Norvasc) 5 mg ONCE ONCE PO Last administered on at 20:28; Start 04/22/17 at 19:15; Stop 04/22/17 at 19:17; Status DC Aspirin (Aspirin Chew) 162 mg DAILY PO ; Start 04/23/17 at 15:15; Stop 04/23/17 at 16:21; Status DC Calcium Chloride 1 gm/Dextrose 110 ml @ 110 mls/hr NOW ONCE IV ; Start at 06:45; Stop 04/24/17 at 06:45; Status DC Calcium Gluconate 1 gm/Dextrose 110 ml @ 110 mls/hr ONCE ONCE IV Last administered on 04/24/17at 07:35; Start 04/24/17 at 06:30; Stop 04/24/17 at 07:29 ; Status DC Calcium Gluconate 1 gm/Sodium Chloride 110 ml @ 110 mls/hr ONCE ONCE IV Last administered on 04/25/17at 09:50; Start 04/25/17 at 08:30; Stop 04/25/17 at 09:29 ; Status DC Calcium Gluconate 2 gm/Dextrose 120 ml @ 120 mls/hr ONCE ONCE IV Last administered on 04/23/17at 00:12; Start 04/23/17 at 23:30; Stop 04/24/17 at 00:29 ; Status DC Cefazolin Sodium (Ancef Inj) 2,000 mg ONCE ONCE IV ; Start 04/24/17 at 19:42; Stop 04/24/17 at 19:57; Status DC Ceftriaxone Sodium 1000 mg/ Sodium Chloride 100 ml @ 200 mls/hr Q24H IV ; Start 04/23/17 at 15:00; Stop 04/23/17 at 15:12; Status DC Chlorhexidine Gluconate (Chlorhexidine 2% Cloth) 3 pack UNSCH PRN TOP HYGIENIC CARE; Start 04/21/17 at 21:15 Clonidine (Catapres) 0.1 mg UNSCH PRN PO for BP > 180/100 X 2 readings; Start 04/24/17 at 07:00 Dextrose (D50w (Vial) Inj) 50 ml UNSCH PRN IV PUSH HYPOGLYCEMIA-SEE COMMENTS; Start 04/25/17 at 08:15 Dextrose/Sodium Chloride 1,000 ml @ 200 mls/hr Q5H IV ; Start 04/22/17 at 17:00 ; Stop 04/22/17 at 18:46; Status DC Diphenhydramine HCl (Benadryl) 25 mg UNSCH PRN PO for hives/itching/anaphylaxis ; Start 04/24/17 at 07:00 Epoetin Cristian (Epogen Inj) 4,000 units UNSCH PRN IV PUSH WITH DIALYSIS; Start at 07:45 Famotidine (Pepcid Inj) 10 mg Q12HR IV PUSH Last administered on 04/25/17at 09: 54; Start 04/23/17 at 21:00 Furosemide (Lasix Inj) 40 mg ONCE ONCE IV PUSH Last administered on 04/24/17at 07:32; Start 04/24/17 at 06:30; Stop 04/24/17 at 06:31; Status DC Gelatin (Gelfoam 12 Mm/7 Mm Top) 1 foam UNSCH PRN TOP SEE LABEL COMMENTS; Start 04/24/17 at 07:00 Gentamicin Sulfate (Gentamicin Inj) 20 mg UNSCH PRN OTHER WITH DIALYSIS; Start 04/24/17 at 07:00 Glucagon (Glucagon Inj) 1 mg UNSCH PRN OTHER HYPOGLYCEMIA-SEE COMMENTS; Start 04/25/17 at 08:15 Heparin Sodium (Porcine) (Heparin Inj) UNSCH PRN .XX WITH DIALYSIS; Start at 07:00 Heparin Sodium/ Dextrose 250 ml @ 12.438 mls/ hr TITRATE PRN IV Coagulation Management Last administered on 04/23/17at 23:04; Start 04/23/17 at 20:45 Hydralazine HCl (Apresoline Inj) 10 mg Q6H PRN IV PUSH SBP> OR = 180, DBP> OR = 100 Last administered on 04/23/17at 01:05; Start 04/21/17 at 21:30 Hydromorphone HCl (Dilaudid Pf Inj) 0.2 mg Q4H PRN IV PUSH BREAKTHROUGH PAIN Last administered on 04/25/17at 04:05; Start 04/23/17 at 23:30 Insulin Aspart (NovoLOG SUPPLEMENTAL SCALE) 1 Q4H SQ ; Start 04/25/17 at 09:00 Insulin Aspart (NovoLOG INJ) 5 units TIDAC SQ Last administered on 04/23/17at 17 :00; Start 04/22/17 at 18:45; Stop 04/24/17 at 04:34; Status DC Insulin Detemir (Levemir Inj) 5 units ONCE SQ ; Start 04/23/17 at 23:30; Stop at 02:00; Status DC Insulin Human Regular (NovoLIN R INJ) 10 units ONCE ONCE IV PUSH Last administered on 04/24/17at 05:30; Start 04/24/17 at 04:45; Stop 04/24/17 at 04:46 ; Status DC Insulin Human Regular 100 units/ Sodium Chloride 100 ml @ 2 mls/hr TITRATE PRN IV Blood Glucose Control; Start 04/24/17 at 10:15; Stop 04/25/17 at 08:11; Status DC Levofloxacin/ Dextrose 100 ml @ 100 mls/hr Q48H IV ; Start 04/25/17 at 16:00 Mannitol (Mannitol Inj) 12.5 gm UNSCH PRN IV WITH DIALYSIS; Start 04/24/17 at 07:00 Miscellaneous Information ALL NURSING DEPARTME... UNSCH PRN .XX SEE LABEL COMMENTS; Start 04/24/17 at 20:30; Stop 04/25/17 at 20:29 Nitroglycerin (Nitrostat Sl) 0.4 mg UNSCH PRN SL CHEST PAIN; Start 04/24/17 at 07:00 Ondansetron HCl (Zofran Inj) 4 mg UNSCH PRN IV PUSH WITH DIALYSIS; Start at 07:00 Oxycodone HCl (Roxicodone) 10 mg Q4H PRN PO PAIN 8-10; Start 04/23/17 at 23:30 Potassium Chloride 100 ml @ 50 mls/hr Q2H PRN IV SEE LABEL COMMENTS; Start 01/27 at 21:15; Stop 04/22/17 at 18:46; Status DC Rifaximin (Xifaxan) 550 mg BID PO ; Start 04/24/17 at 09:00 Sodium Bicarbonate 50 meq/Dextrose 1,000 ml @ 150 mls/hr Q6H40M IV Last administered on 04/25/17at 04:54; Start 04/23/17 at 17:15; Stop 04/25/17 at 08:11 ; Status DC Sodium Bicarbonate 50 meq/Sterile Water 900 ml @ 75 mls/hr Q12H IV ; Start at 16:00; Stop 04/23/17 at 17:08; Status DC Sodium Polystyrene Sulfonate (Kayexalate Liq) 30 gm ONCE ONCE PO Last administered on 04/24/17at 07:32; Start 04/24/17 at 06:30; Stop 04/24/17 at 06:31 ; Status DC Sodium Bicarbonate (Sodium Bicarbonate 8.4% Inj) 100 meq ONCE ONCE IV PUSH Last administered on 04/24/17at 07:31; Start 04/24/17 at 06:30; Stop 04/24/17 at 06:31; Status DC Sodium Chloride (NS Flush) 5 ml UNSCH PRN IV FLUSH WITH DIALYSIS; Start at 07:00 Sodium Chloride 38.5 meq/Sterile Water 1,009.625 ml @ 84 mls/hr Q12H2M IV Last administered on 04/23/17at 08:02; Start 04/22/17 at 20:00; Stop 04/23/17 at 16:05 ; Status DC Sodium Phosphate 15 mmol/Sodium Chloride 105 ml @ 25 mls/hr UNSCH PRN IV SEE LABEL COMMENTS; Start 04/21/17 at 21:15 Water (Free Water) 200 ml Q6HR PO Last administered on 04/24/17at 06:00; Start 04/23/17 at 18:00 (Roma Armijo MD) Urinary Catheter: Yes (Roma Armijo MD) Vascular Central Line Catheter: Yes (Roma Armijo MD) A/P Assessment and Plan Critical Care managing Currently getting RBCs x 1 due to post-op anemia Possible further OR intervention pending Patient delirious, may benefit from palliative care consult given multiple new serious conditions over last 24-48 hr, goals of care discussion Please see Critical Care, Vascular Surgery, Nephrology documentation for further details regarding current treatment plan Discharge Planning Likely will have a prolonged hospital stay at this time for surgical management and acute medical conditions Seen and discussed with Dr. Nadira Mckeon and Dr. Jeff Cheung (Roma Armijo MD) Attending Attestation Patient seen, examined and discussed with the medicine team this morning. Also discussed with his nurse. She obtains left dorsalis pedis pulse be a Doppler. Patient is pleasant, complains of no pain, but does appear to perhaps have some dementia. He was unaware that a procedure was done yesterday, and when it was explained to him that there was amputation of his leg he said "oh wow". Exam finding is as noted above, and I agree with the plan. He is currently being transfused. (Nadira Mckeon MD) Problem List: (1) Hyperammonemia ICD Codes: E72.20 - Disorder of urea cycle metabolism, unspecified (2) Compartment syndrome ICD Codes: T79.A0XA - Compartment syndrome, unspecified, initial encounter (3) Diabetes mellitus ICD Codes: E11.9 - Diabetes mellitus Status: Chronic (4) Hypertension ICD Codes: I10 - Hypertension Status: Acute (5) Acute renal failure ICD Codes: N17.9 - Acute kidney failure, unspecified (6) Hypernatremia ICD Codes: E87.0 - Hyperosmolality and hypernatremia (7) Hyperkalemia ICD Codes: E87.5 - Hyperkalemia (8) UTI (urinary tract infection) ICD Codes: N39.0 - Urinary tract infection, site not specified (9) Transaminitis ICD Codes: R74.0 - Nonspecific elevation of levels of transaminase and lactic acid dehydrogenase [LDH] (Roma Armijo MD) Roma Armijo MD Apr 25, 2017 10:48 Nadira Mckeon MD Apr 25, 2017 13:21
--- NOTE | 2017-04-25 11:37 | HHI.NPPN ---
Subjective History of Present Illness 67 year old with Hypertension,DKA, DM, ARF Additional Remarks had rt leg AKA with wound vacuum Objective Data Data 04/25/17 04/26/17 19:00 07:00 Intake Total 430 ml Balance 430 ml Packed Cells 400 ml Blood Product IV Normal Saline Flush 30 ml Vital Signs Date Time Temp Pulse Resp B/P (MAP) Pulse Ox O2 Delivery O2 Flow Rate FiO2 04/25/17 10:13 97.9 84 12 124/50 100 04/25/17 10:00 84 04/25/17 08:48 98.5 95 17 132/46 100 04/25/17 08:00 100 Nasal Cannula 2.00 04/25/17 08:00 69 04/25/17 08:00 98.8 78 12 100 133/51 (78) 04/25/17 06:00 74 04/25/17 04:00 84 04/25/17 04:00 98.7 84 16 100 139/53 (81) 04/25/17 02:00 88 04/25/17 00:00 98.5 78 14 100 163/54 (90) 04/25/17 00:00 78 04/24/17 23:30 100 Nasal Cannula 3.00 04/24/17 22:00 100 Nasal Cannula 2.00 04/24/17 22:00 82 04/24/17 22:00 98.6 82 16 100 134/48 (76) 04/24/17 22:00 100 Nasal Cannula 2.00 04/24/17 21:40 97.7 94 16 112/56 (74) 99 Nasal Cannula 2 04/24/17 21:00 90 14 116/52 (73) 98 Nasal Cannula 2 04/24/17 20:38 98.4 101 14 109/54 (72) 100 Nasal Cannula 6 04/24/17 18:00 82 04/24/17 16:00 88 04/24/17 16:00 99.7 90 14 116/57 (76) 98 04/24/17 12:00 88 04/24/17 12:00 99.7 88 22 149/65 (93) 95 -: 04/25/17 0530 04/25/17 0530 Physical Exam General Appearance: Well Developed, Well Nourished Neck Neck Exam: Neck Supple Pulmonary Resp Exam: Clear Bilaterally, Breath Sounds Equal Cardiology CV Exam: Regular, Normal Sinus Rhythm Gastrointestinal/Abdomen GI Exam: Soft, Non-Tender, Bowel Sounds Present Extremeties Extremities Exam: Moderate Edema Extremeties Remarks Rt AKA Neurologic Neuro Exam: Alert Assessment/Plan Problem List: (1) Acute renal failure ICD Codes: N17.9 - Acute kidney failure, unspecified Plan: Patient has chronic kidney disease and acute renal failure creatinine 4.59 On HD R AKA Ischemic necrosis Rhabdo continue HD support today hen on ? Friday K normal CK high stump margin dusky appearance Hb 6.9 [place] [address] (2) CKD (chronic kidney disease) stage 3, GFR 30-59 ml/min ICD Codes: N18.3 - Chronic kidney disease, stage 3 (moderate) Plan: kidney ultrasound left renal cyst (3) Diabetes ICD Codes: E11.9 - Type 2 diabetes mellitus without complications Plan: History of DKA continue to monitor (4) Hypertension ICD Codes: I10 - Hypertension Status: Acute Plan: Add amlodipine 5 mg daily (5) DKA (diabetic ketoacidoses) ICD Codes: E13.10 - Other specified diabetes mellitus with ketoacidosis without coma Status: Acute Plan: Resolved (6) Hypernatremia ICD Codes: E87.0 - Hyperosmolality and hypernatremia Plan: Likely dehydration try colloids and hypotonic solutions Natacha Suarez MD Apr 25, 2017 11:37
--- NOTE | 2017-04-25 11:41 | PD.CAR.PN ---
CVT Progress Note Subjective/Hospital Course: 04/24/2017 Patient with total occlusion of the flow to her right leg underwent yesterday thromboembolectomy of the iliac and femoral systems and revascularization of the leg with fasciotomy Today while the patient has flow the leg from just above the knee down is purple and discolored It is insensate and patient has no motoric activity Muscles are discolored grayish appearing and devitalized At this point were essentially perfusing a devitalized extremity due to the length of time of occlusion of the blood flow Patient is now on dialysis consequently producing massive amounts of creatinine kinase with a massive breakdown of the muscle and of course resulting hyperkalemia and metabolic derangements I discussed this with his and this patient needs urgent above-knee amputation We will go ahead with surgery today considering that this is a nonviable extremity 04/25/2017 Patient underwent yesterday an urgent right above-knee guillotine staged amputation for worsening systemic acidemia/metabolic acidosis renal failure. He was found to have massive amount of muscle tissue which was clearly flushing out causing myoglobinuria and all the consequences of the same Patient now doing better systemically Wound VAC drainage is serosanguineous Once the swelling of the thigh goes down the bit possibly tomorrow will take patient back to the operating room to close the amputation site Patient's hemoglobin dropped to 6.9 this morning yet I was not informed about the despite the fact that have operated on this patient just few hours before Grateful for Dr. Moulton and his team for expert management Likely will take patient to the operating room tomorrow to close the stump Objective: Vital Signs Date Time Temp Pulse Resp B/P (MAP) Pulse Ox O2 Delivery O2 Flow Rate FiO2 04/25/17 10:13 97.9 84 12 124/50 100 04/25/17 08:48 98.5 95 17 132/46 100 04/25/17 06:00 74 04/25/17 04:00 84 04/25/17 04:00 98.7 84 16 100 139/53 (81) 04/25/17 02:00 88 04/25/17 00:00 98.5 78 14 100 163/54 (90) 04/25/17 00:00 78 04/24/17 23:30 100 Nasal Cannula 3.00 04/24/17 22:00 100 Nasal Cannula 2.00 04/24/17 22:00 82 04/24/17 22:00 98.6 82 16 100 134/48 (76) 04/24/17 22:00 100 Nasal Cannula 2.00 04/24/17 21:40 97.7 94 16 112/56 (74) 99 Nasal Cannula 2 04/24/17 21:00 90 14 116/52 (73) 98 Nasal Cannula 2 04/24/17 20:38 98.4 101 14 109/54 (72) 100 Nasal Cannula 6 04/24/17 18:00 82 04/24/17 16:00 88 04/24/17 16:00 99.7 90 14 116/57 (76) 98 04/24/17 12:00 88 04/24/17 12:00 99.7 88 22 149/65 (93) 95 Labs: Laboratory Tests Test 04/25/17 05:30 04/25/17 07:40 White Blood Count 6.4 TH/MM3 (4.0-11.0) Red Blood Count 2.28 MIL/MM3 (4.50-5.90) Hemoglobin 6.9 GM/DL (13.0-17.0) Hematocrit 20.4 % (39.0-51.0) Mean Corpuscular Volume 89.3 FL (80.0-100.0) Mean Corpuscular Hemoglobin 30.1 PG (27.0-34.0) Mean Corpuscular Hemoglobin Concent 33.7 % (32.0-36.0) Red Cell Distribution Width 14.4 % (11.6-17.2) Platelet Count 44 TH/MM3 (150-450) Mean Platelet Volume 8.8 FL (7.0-11.0) CBC Comment AUTO DIFF Differential Total Cells Counted 100 Neutrophils % (Manual) 52 % (16-70) Band Neutrophils % 20 % (0-6) Lymphocytes % 21 % (9-44) Monocytes % 5 % (0-8) Eosinophils % 2 % (0-4) Neutrophils # (Manual) 4.6 TH/MM3 (1.8-7.7) Differential Comment FINAL DIFF MANUAL Platelet Estimate LOW (NORMAL) Platelet Morphology Comment NORMAL (NORMAL) Blood Urea Nitrogen 79 MG/DL (7-18) Creatinine 4.59 MG/DL (0.60-1.30) Random Glucose 124 MG/DL (74-106) Total Protein 3.8 GM/DL (6.4-8.2) Albumin 1.7 GM/DL (3.4-5.0) Calcium Level 5.4 MG/DL (8.5-10.1) Alkaline Phosphatase 261 U/L (45-117) Aspartate Amino Transf (AST/SGOT) 1385 U/L (15-37) Alanine Aminotransferase (ALT/SGPT) 241 U/L (12-78) Total Bilirubin 0.2 MG/DL (0.2-1.0) Sodium Level 148 MEQ/L (136-145) Potassium Level 3.9 MEQ/L (3.5-5.1) Chloride Level 110 MEQ/L (98-107) Carbon Dioxide Level 29.5 MEQ/L (21.0-32.0) Anion Gap 9 MEQ/L (5-15) Estimat Glomerular Filtration Rate 13 ML/MIN (>89) Lactic Acid Level 1.2 mmol/L (0.4-2.0) Protein Corrected Calcium 6.9 MG/DL (8.5-10.1) Ammonia 43 MCMOL/L (11-32) Total Creatine Kinase 001366 U/L (39-308) Creatine Kinase MB 219.3 NG/ML (0.5-3.6) Creatine Kinase MB % 0.2 % (0.0-4.0) Result Diagram: 04/25/17 0530 04/25/17 0530 Jean Pierre Auguste MD Apr 25, 2017 11:41
[2017-04-25 12:53] LABS: ALPHA-1-ANTITRYPSIN 227 mg/dL (100 - 190)
[2017-04-25 14:22] LABS: SMOOTH MUSCLE TOTAL AUTOABS Negative (Negative)
[2017-04-25 16:14] LABS: HEMATOCRIT 31.7 % (39.0-51.0); HEMOGLOBIN 11.1 GM/DL (13.0-17.0)
[2017-04-25] MEDS: LEVOFLOXACIN 500 MG PREMIX INJ 100 ML IV SCH (17:08)
[2017-04-25 21:35] LABS: PROTHROMBIN TIME - PATIENT 9.9 SEC (9.8-11.6)
[2017-04-25 22:15] LABS: BICARBONATE 28.2 MEQ/L (21.0-32.0); CALCIUM 6.3 MG/DL (8.5-10.1); CREATININE 3.77 MG/DL (0.60-1.30)
[2017-04-25 22:32] LABS: CALCIUM-PROTEIN CORRECTED 7.6 MG/DL (8.5-10.1); TOTAL PROTEIN 4.4 GM/DL (6.4-8.2)
[2017-04-26] VITALS (13 sets, daily range): BP systolic 130–157; BP diastolic 40–64; PULSE 69–114; RESP 13–20; TEMP 96.9–100.9; O2SAT 95–100
[2017-04-26] MEDS: INSULIN ASPART SUPPLEMENTAL SCALE SQ SCH ×6 (01:11→20:38)
[2017-04-26] MEDS: CHLORHEXIDINE GLUCONATE 2 % 1 PACK (2 CLOTHS) TOP SCH (04:00)
[2017-04-26] MEDS: FREE WATER PO SCH ×5 (04:09→23:45)
[2017-04-26 06:21] LABS: AUTOMATED NEUTROPHIL # 6.7 TH/MM3 (1.8-7.7); BASOPHIL % 0.3 % (0.0-2.0); EOSINOPHIL # 0.1 TH/MM3 (0-0.4); EOSINOPHIL % 1.3 % (0.0-4.0); HEMATOCRIT 24.2 % (39.0-51.0); HEMOGLOBIN 8.6 GM/DL (13.0-17.0); LYMPH % 14.7 % (9.0-44.0); LYMPHOCYTE # 1.3 TH/MM3 (1.0-4.8); MEAN CELL VOLUME 90.5 FL (80.0-100.0); MEAN CORPUSCULAR HEMOGLOBIN 32.3 PG (27.0-34.0); MEAN CORPUSCULAR HGB CONC 35.7 % (32.0-36.0); MEAN PLATELET VOLUME 9.5 FL (7.0-11.0); MONO % 7.5 % (0.0-8.0); MONOCYTE # 0.7 TH/MM3 (0-0.9); NEUT % 76.2 % (16.0-70.0); PLATELET COUNT 70 TH/MM3 (150-450); RED BLOOD COUNT 2.67 MIL/MM3 (4.50-5.90); RED CELL DISTRIBUTION WIDTH 15.1 % (11.6-17.2); WHITE BLOOD COUNT 8.8 TH/MM3 (4.0-11.0)
[2017-04-26 08:13] LABS: BANDS 12 % (0-6); LYMPHOCYTES 7 % (9-44); MONOCYTES 3 % (0-8); MYELOCYTES 1 % (0-0); NEUTROPHIL # MANUAL DIFF 7.8 TH/MM3 (1.8-7.7); POLYS (SEG NEUTROPHILS) 76 % (16-70); TOXIC GRANULATION 2+ (NORMAL)
[2017-04-26 08:28] LABS: ALBUMIN 1.8 GM/DL (3.4-5.0); BICARBONATE 28.4 MEQ/L (21.0-32.0); CREATININE 4.53 MG/DL (0.60-1.30); PHOSPHORUS 5.2 MG/DL (2.5-4.9)
[2017-04-26 08:30] LABS: CALCIUM 6.5 MG/DL (8.5-10.1)
[2017-04-26] MEDS: RIFAXIMIN 550 MG TAB PO SCH ×2 (09:00→20:21)
[2017-04-26] MEDS: SODIUM CHLORIDE 0.9% FLUSH 10 ML FLUSH IV FLUSH SCH ×2 (09:00→20:21)
[2017-04-26] MEDS: FAMOTIDINE 20 MG/2 ML VIAL IV PUSH SCH ×2 (09:40→20:21)
[2017-04-26] MEDS ORDERED: CALCIUM GLUCONATE INJ 1 GM in SODIUM CHLORIDE 0.9% INJ 100 ML IV ONE (11:15)
[2017-04-26] MEDS ORDERED: LIDOCAINE HCL 1% PF 5 ML SYRINGE OTHER ONE (12:00)
[2017-04-26] MEDS ORDERED: PHENYLEPH/NS 1000 MCG/10 ML SYR IV ONE (12:00)
[2017-04-26] MEDS ORDERED: PROPOFOL 200 MG/20 ML AMP IV ONE (12:00)
[2017-04-26] MEDS ORDERED: NORMOSOL R INJ 1,000 ML IV ONE (12:00)
[2017-04-26] MEDS ORDERED: PHENYLEPHRINE HCL 10 MG/ML VIAL IV ONE (12:00)
[2017-04-26] MEDS ORDERED: ROCURONIUM INJ 50 MG/5 ML SYRINGE IV PUSH ONE (12:00)
[2017-04-26] MEDS ORDERED: LABETALOL HCL 100 MG/20 ML VIAL IV ONE (12:00)
--- NOTE | 2017-04-26 12:28 | HHI.FPPN ---
Subjective Remarks No acute events overnight. Patient continues to deny pain of any sort. When asked about his leg he is unable to explain what is happening with that he has had a surgery at all. When told that his leg had been amputated he was unaware that that had happened. (Mango Cheung MD R1) Objective Vitals Vital Signs Date Time Temp Pulse Resp B/P (MAP) Pulse Ox O2 Delivery O2 Flow Rate FiO2 04/26/17 10:00 96 21 04/26/17 06:00 69 04/26/17 04:00 95 04/26/17 04:00 99.0 95 18 151/51 (84) 95 04/26/17 02:00 103 04/26/17 00:00 80 04/26/17 00:00 99.7 80 20 130/54 (79) 95 04/25/17 22:00 117 04/25/17 21:17 99 21 04/25/17 20:00 106 04/25/17 20:00 99.1 106 18 100/46 (64) 96 04/25/17 19:00 96 Room Air 04/25/17 18:00 85 04/25/17 16:00 98.7 83 14 147/56 (86) 99 04/25/17 16:00 70 04/25/17 14:00 93 I/O 04/25/17 04/25/17 04/25/17 04/26/17 04/26/17 04/26/17 07:00 15:00 23:00 07:00 15:00 23:00 Intake Total 860 ml Output Total 600 ml 700 ml 350 ml Balance -600 ml 860 ml -700 ml -350 ml Packed Cells 800 ml Blood Product IV Normal Saline Flush 60 ml Output Urine Total 400 ml 550 ml 300 ml Stool Total 0 ml 0 ml 0 ml Drainage Total 200 ml 150 ml 50 ml (Mango Cheung MD R1) Result Diagram: 04/26/17 0555 04/26/17 0555 Objective Remarks GENERAL: This is a cachectic male, laying in bed in NAD. Patient is conscious but confused. SKIN: No rashes, ecchymoses or lesions outside of RLE as noted below. R internal jugular vas catheter and L internal jugular central line in place. HEAD: Atraumatic. Normocephalic. EYES: Pupils equal round and reactive. Extraocular motions intact. No scleral icterus. No injection or drainage. ENT: Nose without bleeding, purulent drainage or septal hematoma. Throat without erythema, tonsillar hypertrophy or exudate. Uvula midline. Airway patent. NECK: Trachea midline. No JVD or lymphadenopathy. Supple, nontender, no meningeal signs. CARDIOVASCULAR: Regular rate and rhythm without murmurs, gallops, or rubs. RESPIRATORY: Clear to auscultation. Breath sounds equal bilaterally. No wheezes , rales, or rhonchi. GASTROINTESTINAL: Abdomen soft, non-tender, nondistended. No hepato-splenomegaly , or palpable masses. No guarding. MUSCULOSKELETAL: RLE with [id number] amputation with wound vac in place. Skin is warm above level of amputation. LLE warm to touch, +Doppler pulse at DP per RN. NEUROLOGICAL: Cranial nerves grossly intact. Moving LLE and upper extremities spontaneously (Mango Cheung MD R1) A/P Assessment and Plan Patient is 67 year old Male with PMHx of HTN and DM presented to ED via EVAC due to 1 wk hx of decreased po intake. Patient found to be altered, hypertensive with blood glucose greater than 900, elevated anion gap of 29, beta hydroxy of 11.9. Patient admitted to management of DKA. Transitioned to SQ insulin on 04/22. Of note, communication with the patient has been difficult at times. [employer] business analyst intern was used on 04/23 as patient is primarily Lithuanian speaking, and the business analyst intern could not understand the patient. Nursing staff and medical team has been able to communicate with the patient in Sinhala successfully at times but he occasionally slurs his speech/is not understandable. On 04/23 patient was found to have significant transaminitis as well as worsening renal function. Nephrology, GI consulted. A discussion was had with the patient's on 04/23 and she stated that all of the patient's symptoms (including his R leg stiffness/loss of function) were new and that he had been found down for up to 5 hours before coming to the ER. Vascular was consulted at that time and it was noted that patient had no palpable pulses, either femoral, popliteal, dorsalis pedis or post tibial. Ultrasound revealed complete occlusion of blood flow to the R leg and patient was immediately taken to the OR for R leg clot fasciotomy thrombectomy. On 04/24 patient was found to have worsening renal function with Creatinine of 4.85 and a Potassium of 7.1. R int jugular vascular cath was placed and patient underwent HD at that time. Labs were indicative of rhabdomyolysis. Right above knee amputation with wound vac was performed on 04/24. Received one blood transfusion following the procedure. Plan return to operating room on 04/26 to close amputation site. * Neuro: intermittent AMS, possible CVA * Patient's states that his baseline is totally normal. Suspect possible CVA prior to ED arrival. Also suspecting Dementia vs delirium as patient continues to express lack of knowledge of his amputation daily. * Last normal appears to be 7AM on 04/21/2017 per * Orders for CVA workup initiated, but as patient has multiple problems currently requiring intensive treatment, several of these studies may be delayed. Brain MRI/MRA noncontrast held, Carotid US held due to jugular venous lines placed, echocardiogram ordered, PT/OT/speech evaluations. CT head negative in ED. * No previous CVA history * Lipid profile showing triglycerides 200, cholesterol 155, LDL 102, HDL 12.6, A1c 17.7 * Will initiate atorvastatin if indicated * Rehab at discharge * CV: Hx CABG remotely, Intermittent bradycardia, HTN, RLE vasculopathy * Will continue telemetry * Will get echocardiogram to further assess cardiac structure and function * HTN now being treated with amlodipine * Vascular surgery performed R leg clot fasciotomy thrombectomy on 04/23. * Right above knee amputation with wound vac was performed on 04/24. Received two blood transfusion following the procedure due to hemoglobin of 6.9. * Plan return to operating room on 04/26 to close amputation site. * GI: acute transaminitis, difficulty swallowing * Unclear etiology as LFTs were normal on admission, suspecting rhabdomyolysis as likely cause. * Was given Ofirmev x 1 on 04/22. Tylenol level is <2 today * Patient is asymptomatic, no jaundice or alcoholic history * Transaminases 3000 on 04/24. Bilirubin normal. AST 1385 on 04/25 on procedure * Creatinine Kinase > 144,000, CK-MB 642.4, lipase 1067, GGT 14 * Findings concerning for rhabdomyolysis * Liver ultrasound on 04/24 showed findings consistent with hepatic steatosis versus medical liver disease. Cholelithiasis * Gastroenterology signed off on 04/24 * Hepatitis panel negative * Hyperammonemia of 75 and 04/24 - given Rifaximin 500 g BID and trending ammonia level. Improved to 43 on 04/25 * Speech therapy evaluated and noted severe oropharyngeal dysphagia, high risk for aspiration * May require NG feeds, NG tube may be placed in operating room * FEN/RENAL: hyponatremia, hyperkalemia, CHANELL vs CKD, hypoalbuminemia, hypocalcemia, hyperchloremic metabolic acidosis * Creatinine 4.53, eGFR 13: differential includes CKD, CHANELL from rhabdomyolysis. * Hypernatremia resolved * Hyperkalemia resolved currently * Hypocalcemia with calcium of 6.5 on 04/26, given 1 g calcium gluconate * Urine prot/creat ratio 5.06, very elevated, suspect diabetic nephropathy * Renal US normal * Nephrology consulted, appreciate recommendations * Received hemodialysis on 04/24 due to a potassium of 7.1 * ID: UTI complicated by male gender, race, urethral injury * Leukocytosis on admission resolved * VS not showing signs of systemic infection * CXR on admission normal * Patient removed catheter traumatically on 04/21/2017 * Catheter replaced and in place since admission * Given renal and liver disease, consulted Pharmacist compensation adjuster who recommended Levaquin, will give 750mg IV q 24hr started on 04/23 * Urine culture growing Klebsiella, Group B strep - pansensitive * Lactic acid 1.1 on 04/25 * CRP 21.10 on 04/24 * HEME: urethral bleeding 2/2 traumatic catheter removal, rhabdomyolysis * Patient with dark urine, now suspect this may be myoglobin rather than blood * Patient was not placed on anticoagulation at time of admission 04/21 due to urethral bleeding (due to traumatic removal of catheter by the patient). * Status post 2 units of packed red blood cells following amputation on 04/24 * Nephrology increasing Epoetin to 10,000 units with dialysis * ENDO: Diabetes * Hyperglycemia: HHS on admission, resolved on 04/22 but insulin drip resumed on 04/24. Discontinued insulin drip and started SSI on 04/25 * Blood glucose ranging from 112-224 over last 24 hours * A1c 17.7 * certified adapted physical educator, winding inspector consulted * TSH wnl * PROPH: anticoagulation held due to traumatic urethral injury on 04/21 * Famotidine 20mg IV BID for stress ulcer prophylaxis Discharge Planning Likely will have a prolonged hospital stay at this time for surgical management and acute medical conditions Seen and discussed with Dr. Nadira Mckeon and Dr. Mely Hernandez (Mango Cheung MD R1) Attending Attestation Patient seen and examined with the medicine team in the intensive care unit.Discussed with his nurse as well as with Dr. Degroot briefly. He continues to deny any pain, his speech is nonsensical, and he is totally unaware that his right leg has been amputated. His exam is stable, with palpable dorsalis pedis pulse on the left. Plan is for debridement of his stump today by Dr. Degroot and we will continue to follow him. We repleted his calcium today. Plan is to get case management involved in placement in the future. (Nadira Mckeon MD) Problem List: (1) Hyperammonemia ICD Codes: E72.20 - Disorder of urea cycle metabolism, unspecified (2) Compartment syndrome ICD Codes: T79.A0XA - Compartment syndrome, unspecified, initial encounter (3) Diabetes mellitus ICD Codes: E11.9 - Diabetes mellitus Status: Chronic (4) Hypertension ICD Codes: I10 - Hypertension Status: Acute (5) Acute renal failure ICD Codes: N17.9 - Acute kidney failure, unspecified (6) Hypernatremia ICD Codes: E87.0 - Hyperosmolality and hypernatremia (7) Hyperkalemia ICD Codes: E87.5 - Hyperkalemia (8) UTI (urinary tract infection) ICD Codes: N39.0 - Urinary tract infection, site not specified (9) Transaminitis ICD Codes: R74.0 - Nonspecific elevation of levels of transaminase and lactic acid dehydrogenase [LDH] (Mango Cheung MD R1) Mango Cheung MD R1 Apr 26, 2017 12:28 Nadira Mckeon MD Apr 26, 2017 14:41
[2017-04-26] MEDS ORDERED: ceFAZolin INJ 1,000 MG VIAL ONE (14:18)
[2017-04-26] MEDS ORDERED: DESMOPRESSIN IV ONE (15:45)
[2017-04-26] MEDS ORDERED: SODIUM CHLORIDE 0.9% IV ONE (15:45)
--- NOTE | 2017-04-26 15:48 | HHI.CCPN ---
Subjective Remarks/Hospital Course 04/23: 67-year-old male from the [place] who presented to [facility] emergency department 04/21 and was admitted for DKA. He has h/o CKD, DM, hyperlipidemia Coronary artery disease with prior stent and CABG. He had acute kidney injury on admission and creatinine progressively worsened. On 04/23 he complained of not being able to move his right lower extremity and was noted to have a cool right lower extremity with evidence of compartment syndrome. Transaminases were elevated with AST >2000. CPK >100k. Vascular surgery consultation was obtained and he has undergone thrombectomy and R lower leg fasciotomy by Dr. Auguste. [facility] is consulted to assist with medical management. 04/24: Found to have ischemic right lower extremity with compartment syndrome. Underwent attempted revascularization and fasciotomy on 04/[address] Arrieta. Worsening renal function with worsening hyperkalemia this morning. Patient was initiated on hemodialysis following placement of Vas-Cath and central line for vascular access by me this morning. He is maintaining his blood pressure and appears to be breathing fine. He does appear delirious currently. He does open eyes and follows commands appropriately. Denies any shortness of breath or chest pain. Right lower extremity with [place] wrap all the way up to the thigh and foot appears cyanotic/mottled with dark discoloration. Proximal thigh also reveals some mottling. 04/25: S/P amputation. Acid/base balance much improved. Hgb < 7, will transfuse 1 unit. 04/26: Slowly decreasing CK levels but kidney injury being protected somewhat by good urine output. HD 04/24, 04/25. He remains surprisingly alert and may go back to OR for debridement or closure today. Objective Vital Signs Date Time Temp Pulse Resp B/P (MAP) Pulse Ox O2 Delivery O2 Flow Rate FiO2 04/26/17 13:28 99.0 101 17 166/75 (105) 97 171/89 (116) 04/26/17 10:00 21 04/25/17 19:00 Room Air 04/25/17 12:07 2.00 Intake and Output 04/26/17 04/26/17 04/27/17 08:00 16:00 00:00 Intake Total 500 ml Output Total 350 ml 50 ml Balance -350 ml 450 ml Result Diagram: 04/26/17 0555 04/26/17 0555 Objective Remarks GENERAL: Ill-appearing patient. SKIN: Warm and dry. No rash HEAD: Atraumatic. Normocephalic. EYES: Pupils equal and round, reactive bilaterally. No scleral icterus. No injection or drainage. ENT: No nasal bleeding or discharge. Mucous membranes pink and moist. NECK: Trachea midline. No airway obstruction. No stridor or obstruction. CARDIOVASCULAR: Tachycardic, regular, sinus tach on the monitor. No murmurs rubs or gallops. No JVD. RESPIRATORY: No accessory muscle use. Clear to auscultation. Breath sounds equal bilaterally. On 3 L nasal cannula. GASTROINTESTINAL: Abdomen soft, non-tender, nondistended. Bowel sounds present. No guarding. : [place] in place with sinai/tea urine. MUSCULOSKELETAL: s/p right leg amputation. Dressing intact, clean. NEUROLOGICAL: Awake and alert. Conversant. Some confusion though follows commands appropriately. No obvious cranial nerve deficits. Normal speech. Strength is 5 out of 5 in bilateral upper extremities and left lower extremity. A/P Assessment and Plan NEURO: Acute toxic metabolic encephalopathy on admission, resolved Hyperammonemia Oxycodone as needed for pain. Dilaudid as needed for breakthrough pain. Rifaximin 550 g by mouth twice a day, f/u ammonia level. Start lactulose again. RESP: Tobacco abuse Nasal cannula wean as tolerated CV: Right lower leg ischemia now status post thrombectomy and fasciotomy by Dr. Auguste Coronary artery disease with prior CABG and stent Hypertension Hyperlipidemia Hypotensive postoperatively, fluid responsive Bolus 1.5 L of NS and given albumin 25 g IV. Hemodynamic monitoring via arterial line. Avoid statin due to elevated LFTs may be elevated due to muscle injury. Was on heparin drip postoperatively. This has been held by Dr. Degroot due to bleeding at the fasciotomy site. Follow-up CBC - Ordered 2 L normal saline bolus this morning and he appeared to be intravascularly depleted as noted by cc collapse with ultrasound while placing Vas-Cath. GI/liver: Transaminases elevation which likely is related to muscle injury from acute rhabdomyolysis GI has evaluated and ordered liver w/u. GGT normal, doubt liver pathology. Elevated lipase noted? Defer to GI. Patient not complaining of any abdominal pain. Improving LFTs. FEN/RENAL: Acute rhabdomyolysis Acute kidney injury Acute hyperkalemia Acute hypernatremia Acute hypocalcemia Non-anion gap metabolic acidemia Nephrology has been following. Overnight Given 2 g calcium gluconate, 1 L normal saline bolus, Kayexalate 30 g , insulin 10 units IV, continued bicarbonate drip for potassium of 5.4. Stopped bicarbonate drip. Started on emergent hemodialysis 04/24 following Vas- Cath placement D/C bicarb gtt. Ca 1 gm iv ID: UTI On IV Levaquin for UTI per family medicine. Follow-up urine culture HEME: Acute blood loss anemia Heparin drip on hold per Dr. Degroot due to bleeding at the fasciotomy site. Follow- up serial hemoglobin ENDO: Acute hyperglycemia Diabetes mellitus D/C insulin drip to algorithm 3 . Start SSI PROPH: Was on heparin drip which is being held due to bleeding. Famotidine 20 mg IV every 12 hours for stress ulcer prophylaxis. ACCESS: Left radial art line 04/23 . Left IJ central line placed 04/24 Overall impression: Patient is critically ill with acute rhabdomyolysis and CHANELL. Renal function remains marginal. Marc Moulton MD Apr 26, 2017 15:48
[2017-04-26] MEDS ORDERED: DO NOT ADM ANY ANTICOAGULANT DRUGS PRN (15:54)
[2017-04-26] MEDS ORDERED: MORPHINE SULFATE 4 MG/ML INJ ONE (16:00)
[2017-04-26] MEDS: HYDROmorphone HCL PF 2 MG/ML VIAL IV PUSH PRN ×2 (17:16→23:54)
--- NOTE | 2017-04-26 17:19 | HHI.NPPN ---
Subjective History of Present Illness 67 year old with Hypertension,DKA, DM, ARF Additional Remarks Had wound debridement in OR earlier Objective Data Data 04/26/17 04/27/17 19:00 07:00 Intake Total 500 ml Output Total 50 ml Balance 450 ml IV Total 500 ml Estimated Blood Loss 50 ml Vital Signs Date Time Temp Pulse Resp B/P (MAP) Pulse Ox O2 Delivery O2 Flow Rate FiO2 04/26/17 17:00 98 04/26/17 17:00 97.0 98 16 143/40 (74) 96 04/26/17 15:56 98.1 78 20 151/65 (93) 96 Nasal Cannula 2 144/44 (77) 04/26/17 13:28 99.0 101 17 166/75 (105) 97 171/89 (116) 04/26/17 12:00 103 04/26/17 12:00 100.9 103 15 145/54 (84) 100 04/26/17 10:00 106 04/26/17 10:00 96 21 04/26/17 08:00 114 04/26/17 08:00 100.2 114 13 157/64 (95) 96 04/26/17 07:00 96 Room Air 04/26/17 06:00 69 04/26/17 04:00 95 04/26/17 04:00 99.0 95 18 151/51 (84) 95 04/26/17 02:00 103 04/26/17 00:00 80 04/26/17 00:00 99.7 80 20 130/54 (79) 95 04/25/17 22:00 117 04/25/17 21:17 99 21 04/25/17 20:00 106 04/25/17 20:00 99.1 106 18 100/46 (64) 96 04/25/17 19:00 96 Room Air 04/25/17 18:00 85 -: 04/26/17 0555 04/26/17 0555 Physical Exam General Appearance: Well Developed, Well Nourished Neck Neck Exam: Neck Supple Pulmonary Resp Exam: Clear Bilaterally, Breath Sounds Equal Cardiology CV Exam: Regular, Normal Sinus Rhythm Gastrointestinal/Abdomen GI Exam: Soft, Non-Tender, Bowel Sounds Present Extremeties Extremities Exam: Moderate Edema Neurologic Neuro Exam: Alert Assessment/Plan Problem List: (1) Acute renal failure ICD Codes: N17.9 - Acute kidney failure, unspecified Plan: Patient has chronic kidney disease and acute renal failure with rhabdomyolysis creatinine 4.53 today On HD MWF - had HD yesterday Will plan for next HD Friday Ongoing UOP - 800cc/24 hours. Continue to monitor. Right lower leg ischemia now status post thrombectomy and fasciotomy by Dr. Auguste On epogen for anemia - transfuse as needed. (2) CKD (chronic kidney disease) stage 3, GFR 30-59 ml/min ICD Codes: N18.3 - Chronic kidney disease, stage 3 (moderate) Plan: kidney ultrasound left renal cyst (3) Diabetes ICD Codes: E11.9 - Type 2 diabetes mellitus without complications Plan: History of DKA continue to monitor (4) Hypertension ICD Codes: I10 - Hypertension Status: Acute Plan: BP stable (5) DKA (diabetic ketoacidoses) ICD Codes: E13.10 - Other specified diabetes mellitus with ketoacidosis without coma Status: Acute Plan: Resolved (6) Hypernatremia ICD Codes: E87.0 - Hyperosmolality and hypernatremia Plan: stable Quinn Correa MD Apr 26, 2017 17:19
[2017-04-26 19:53] LABS: CERULOPLASMIN 28 mg/dL (18-36)
--- NOTE | 2017-04-26 21:41 | MP ---
cc: Jean Pierre Auguste MD DATE OF OPERATION: 04/26/2017 PREOPERATIVE DIAGNOSES: Coronary artery disease, diabetes mellitus, chronic renal failure, status post right above-knee amputation for gangrene of the right leg. POSTOPERATIVE DIAGNOSES: Coronary artery disease, diabetes mellitus, chronic renal failure, status post right above-knee amputation for gangrene of the right leg. OPERATIVE PROCEDURE: Second stage of right above-knee amputation with a re-resection of the musculature, resection of the femur and closure of the stump. SURGEON: Jean Pierre Auguste MD ANESTHESIA: General. ESTIMATED BLOOD LOSS: 50 mL INDICATIONS FOR PROCEDURE: This unfortunate gentleman underwent emergent right above-knee amputation for gangrene of the right leg, compartment syndrome and a massive myoglobinuria 2 days ago. This was done in a guillotine fashion. An incision was left open with a wound VAC protocol. DESCRIPTION OF PROCEDURE: The patient's wound VAC is removed. The area was prepped and draped and then the stump is observed. The patient still has some muscle in the area of the quadriceps femoris group. This one appears to be somewhat dusky and not quite devitalized but certainly somewhat grayish brown. This muscle is now attended by resecting it with a large amputation knife. The femur is now dissected up with periosteal elevator another inch and then transected with oscillating saw. The area irrigated with copious amounts of saline and meticulous hemostasis obtained with some 2-0 Vicryl stick ties and cautery. The rest of the muscle appears to be nice and viable. The stump is now tailored and then closed in layers using 0 Vicryl fascia at the fascia, 2-0 Prolene skin to skin. The patient tolerated the procedure well and was taken to the recovery room in stable condition. Jean Pierre Auguste MD SJ/rt , 08:23 PM , 09:39 PM
[2017-04-27] VITALS (14 sets, daily range): BP systolic 109–158; BP diastolic 32–61; PULSE 88–104; RESP 12–18; TEMP 97–99.1; O2SAT 97–100
[2017-04-27] MEDS: INSULIN ASPART SUPPLEMENTAL SCALE SQ SCH ×6 (00:45→20:22)
[2017-04-27 03:52] LABS: ENDOMYSIAL AB SCREEN ND (NEGATIVE); ENDOMYSIAL AB TITER ND (<1:5)
[2017-04-27] MEDS: CHLORHEXIDINE GLUCONATE 2 % 1 PACK (2 CLOTHS) TOP SCH (04:00)
[2017-04-27 04:02] LABS: BASOPHIL % 0.3 % (0.0-2.0); EOSINOPHIL # 0.2 TH/MM3 (0-0.4); EOSINOPHIL % 1.9 % (0.0-4.0); HEMATOCRIT 23.3 % (39.0-51.0); HEMOGLOBIN 8.1 GM/DL (13.0-17.0); LYMPH % 12.2 % (9.0-44.0); LYMPHOCYTE # 1.1 TH/MM3 (1.0-4.8); MEAN CELL VOLUME 90.5 FL (80.0-100.0); MEAN CORPUSCULAR HEMOGLOBIN 31.5 PG (27.0-34.0); MEAN CORPUSCULAR HGB CONC 34.8 % (32.0-36.0); MEAN PLATELET VOLUME 8.9 FL (7.0-11.0); MONO % 10.1 % (0.0-8.0); MONOCYTE # 0.9 TH/MM3 (0-0.9); NEUT % 75.5 % (16.0-70.0); PLATELET COUNT 115 TH/MM3 (150-450); RED BLOOD COUNT 2.57 MIL/MM3 (4.50-5.90); RED CELL DISTRIBUTION WIDTH 15.4 % (11.6-17.2); WHITE BLOOD COUNT 9.3 TH/MM3 (4.0-11.0)
[2017-04-27 05:42] LABS: BANDS 1 % (0-6); CORRECTED NUCLEATED RBC 1 /100 WBC (0-0); LYMPHOCYTES 5 % (9-44); MONOCYTES 6 % (0-8); NUCLEATED RED BLOOD CELL 1 (0-0); POLYS (SEG NEUTROPHILS) 85 % (16-70)
[2017-04-27] MEDS: FREE WATER PO SCH ×3 (06:00→18:00)
[2017-04-27 06:44] LABS: ALBUMIN 1.7 GM/DL (3.4-5.0); CREATININE 5.94 MG/DL (0.60-1.30); TOTAL PROTEIN 4.5 GM/DL (6.4-8.2)
[2017-04-27 06:45] LABS: BICARBONATE 25.1 MEQ/L (21.0-32.0); CALCIUM 7.3 MG/DL (8.5-10.1); CALCIUM-PROTEIN CORRECTED 8.8 MG/DL (8.5-10.1); TOTAL BILIRUBIN ADULT 0.4 MG/DL (0.2-1.0)
[2017-04-27] MEDS: RIFAXIMIN 550 MG TAB PO SCH ×2 (09:00→20:12)
[2017-04-27] MEDS: SODIUM CHLORIDE 0.9% FLUSH 10 ML FLUSH IV FLUSH SCH ×2 (09:00→20:11)
[2017-04-27] MEDS: FAMOTIDINE 20 MG/2 ML VIAL IV PUSH SCH ×2 (09:00→20:13)
--- NOTE | 2017-04-27 09:49 | HHI.FPPN ---
"Subjective Remarks Patient was seen and examined this morning. Critical care managing today, admitting primary care team following with anticipation that patient will graduate from critical care services within the next couple of days. He is postop day #1 after third OR procedure to close his leg stump. He denies any pain or discomfort today. He denies chest pain, shortness of breath, fevers , chills. He is NPO as he has failed his swallow study. Speech therapy to reevaluate this morning. RN taking care of patient this morning states that she plans to remove the arterial line today. No recent bowel movements. Objective Vitals Vital Signs Date Time Temp Pulse Resp B/P (MAP) Pulse Ox O2 Delivery O2 Flow Rate FiO2 04/27/17 06:00 95 04/27/17 04:00 97.8 100 16 158/39 (78) 97 04/27/17 04:00 100 04/27/17 02:00 96 04/27/17 00:00 88 04/27/17 00:00 97.0 88 12 120/32 (61) 98 04/26/17 23:38 99 21 04/26/17 22:00 90 04/26/17 20:00 99 Room Air 04/26/17 20:00 96.9 101 16 150/53 (85) 99 Automatic Cuff 04/26/17 19:05 83 04/26/17 18:00 92 04/26/17 17:58 15 04/26/17 17:00 98 04/26/17 17:00 97.0 98 16 143/40 (74) 96 04/26/17 16:47 98.1 90 20 146/65 (92) 99 Nasal Cannula 2 138/44 (75) 04/26/17 16:45 146/65 (92) Nasal Cannula 2 138/44 (75) 04/26/17 16:30 145/65 (91) Nasal Cannula 2 147/49 (81) 04/26/17 16:15 79 20 148/67 (94) 100 Nasal Cannula 2 144/44 (77) 04/26/17 15:56 98.1 78 20 151/65 (93) 96 Nasal Cannula 2 144/44 (77) 04/26/17 13:28 99.0 101 17 166/75 (105) 97 171/89 (116) 04/26/17 12:00 103 04/26/17 12:00 100.9 103 15 145/54 (84) 100 04/26/17 10:00 106 04/26/17 10:00 96 21 I/O 04/26/17 04/26/17 04/26/17 04/27/17 04/27/17 04/27/17 07:00 15:00 23:00 07:00 15:00 23:00 Intake Total 769 ml 0 ml Output Total 350 ml 295 ml 520 ml Balance -350 ml 474 ml -520 ml Intake Oral 0 ml IV Total 769 ml Output Urine Total 300 ml 200 ml 500 ml Stool Total 0 ml Drainage Total 50 ml 45 ml 20 ml Estimated Blood Loss 50 ml # Voids 0 # Bowel Movements 0 Result Diagram: 04/27/17 0350 04/27/17 0350 Imaging Last Impressions Liver Ultrasound 04/24/17 0000 Signed Impressions: Service Date/Time: April 15:02 - CONCLUSION: 1. Mild hepatomegaly with increased hepatic echogenicity likely reflecting hepatic steatosis versus medical liver disease. 2. Cholelithiasis with mildly distended gallbladder and gallbladder wall thickening which may be chronic in etiology. Further evaluation may be performed with HIDA scan if there is significant clinical concern regarding acute cholecystitis. Dmitriy Kumar MD Chest X-Ray 04/24/17 0000 Signed Impressions: Service Date/Time: April 08:20 - CONCLUSION: Right internal jugular vas catheter and left internal jugular central line are in good positions with their tips at the junction of the superior vena cava and right atrium. No pneumothorax is noted. Red Toro MD Renal Ultrasound 04/22/17 0000 Signed Impressions: Service Date/Time: Saturday, April 22, 2017 21:27 - CONCLUSION: No obstructive uropathy or other acute abnormality. Incidentally seen benign-appearing left renal cyst. Ash Mason MD Head CT 04/21/17 0000 Signed Impressions: Service Date/Time: Friday, April 21, 2017 18:29 - CONCLUSION: Normal noncontrast head CT. Ash Mason MD Objective Remarks GENERAL: This is a cachectic male, laying in bed in NAD. Patient is conscious but confused. SKIN: No rashes, ecchymoses or lesions outside of RLE as noted below. R internal jugular vas catheter and L internal jugular central line in place. Art line in place in LUE near wrist. Two peripheral lines on RUE. HEAD: Atraumatic. Normocephalic. EYES: Pupils equal round and reactive. Extraocular motions intact. ENT: Nose without bleeding or drainage. Airway patent. NECK: Trachea midline. No JVD or lymphadenopathy. Supple, nontender, no meningeal signs. CARDIOVASCULAR: Regular rate and rhythm without murmurs, gallops, or rubs. RESPIRATORY: Clear to auscultation. Breath sounds equal bilaterally. No wheezes , rales, or rhonchi. GASTROINTESTINAL: Abdomen soft, non-tender, nondistended. Hypoactive bowel sounds. No hepato-splenomegaly, or palpable masses. No guarding. MUSCULOSKELETAL: RLE with [id number] amputation with wound vac in place. Skin is warm above level of amputation. LLE warm to touch, +palpated left DP pulse NEUROLOGICAL: Cranial nerves grossly intact. Moving LLE and upper extremities spontaneously. Answers questions appropriately today. Urinary Catheter: Yes Assessment to: Continue Vascular Central Line Catheter: Yes A/P Assessment and Plan Patient is 67 year old Male with PMHx of HTN and DM presented to ED via EVAC due to 1 wk hx of decreased po intake. Patient found to be altered, hypertensive with blood glucose greater than 900, elevated anion gap of 29, beta hydroxy of 11.9. Patient admitted to management of DKA. Transitioned to SQ insulin on 04/22. Of note, communication with the patient has been difficult at times. [employer] interpreter translator was used on 04/23 as patient is primarily Yakut speaking, and the interpreter translator could not understand the patient. Nursing staff and medical team has been able to communicate with the patient in [place] successfully at times but he occasionally slurs his speech/is not understandable. On 04/23 patient was found to have significant transaminitis as well as worsening renal function. Nephrology, GI consulted. A discussion was had with the patient's on 04/23 and she stated that all of the patient's symptoms (including his R leg stiffness/loss of function) were new and that he had been found down for up to 5 hours before coming to the ER. Vascular was consulted at that time and it was noted that patient had no palpable pulses, either femoral, popliteal, dorsalis pedis or post tibial. Ultrasound revealed complete occlusion of blood flow to the R leg and patient was immediately taken to the OR for R leg clot fasciotomy thrombectomy. On 04/24 patient was found to have worsening renal function with Creatinine of 4.85 and a Potassium of 7.1. R int jugular vascular cath was placed and patient underwent HD at that time. Labs were indicative of rhabdomyolysis. Right above knee amputation with wound vac was performed on 04/24. Received one blood transfusion following the procedure. S/P closure of amputation site on 04/26. Getting HD MWF. Unclear clinical course ahead. Critical Care, Vascular, and Nephrology managing, appreciate assistance in this patient's care. * Neuro: intermittent AMS, possible CVA * Patient's states that his baseline is totally normal. Suspect possible CVA prior to ED arrival. Also suspecting Dementia vs delirium as patient continues to express lack of knowledge of his amputation daily. * Last normal appears to be 7AM on 04/21/2017 per * Orders for CVA workup initiated, but as patient has multiple problems currently requiring intensive treatment, several of these studies may be delayed. Brain MRI/MRA noncontrast held, Carotid US held due to jugular venous lines placed, echocardiogram ordered, PT/OT/speech evaluations. CT head negative in ED. Consider ordering MRI once stable * No previous CVA history * Lipid profile showing triglycerides 200, cholesterol 155, LDL 102, HDL 12.6, A1c 17.7 * Will initiate atorvastatin once liver function is stable * Rehab at discharge * CV: Hx CABG remotely, Intermittent bradycardia, HTN, critical limb ischemia s/ p amputation * Continue telemetry * Echo 04/24 showing EF 60-65%, normal LV size, no noted wall motion abnormalities * HTN now being treated with amlodipine * Vascular surgery performed R leg clot fasciotomy thrombectomy on 04/23. * Right above knee amputation with wound vac was performed on 04/24. Received two blood transfusion following the procedure due to hemoglobin of 6.9. * POD #1 from amputation closure (performed 04/26) * GI: acute transaminitis, difficulty swallowing, hyperammonemia * Transaminitis resolving. Unclear etiology as LFTs were normal on admission, suspecting rhabdomyolysis as likely cause. * Was given Ofirmev x 1 on 04/22. Tylenol level is <2 today * Patient is asymptomatic, no jaundice or alcoholic history * Transaminases 3000 on 04/24. Bilirubin normal. AST 1385 on 04/25 on procedure * CK improving but still markedly elevated. Normal on admission * Liver ultrasound on 04/24 showed findings consistent with hepatic steatosis versus medical liver disease. Cholelithiasis noted * Gastroenterology signed off on 04/24 * Hepatitis panel negative * Hyperammonemia of 75 and 04/24 - given Rifaximin 500 g BID and trending ammonia level. Improved to 43 on 04/25 * Speech therapy evaluated and noted severe oropharyngeal dysphagia, high risk for aspiration * FEN/RENAL: severe acute on chronic kidney disease, hypoalbuminemia, hypocalcemia * Creatinine 4.53, eGFR 13: differential includes CKD, CHANELL from rhabdomyolysis. * Hypernatremia resolved * Hyperkalemia resolved currently * Hypocalcemia with calcium of 6.5 on 04/26, repletion IV per Crit Care * Urine prot/creat ratio 5.06, very elevated, suspect diabetic nephropathy * Renal US normal * Nephrology consulted, appreciate recommendations * Hemodialysis initiated 04/24, now MWF scheduled * ID: UTI complicated by male gender, race, urethral injury * Leukocytosis on admission resolved * VS not showing signs of systemic infection * CXR on admission normal * Patient removed catheter traumatically on 04/21/2017 * Catheter replaced and in place since admission * Given renal and liver disease, consulted Pharmacist institutional research director who recommended Levaquin, 750mg IV q 24hr started on 04/23 * Urine culture growing Klebsiella, Group B strep - pansensitive * Lactic acid 1.1 on 04/25 * CRP 21.10 on 04/24 * HEME: rhabdomyolysis, acute blood loss anemia * Urethral bleeding 2/2 traumatic catheter removal resolved * Urine color significantly improved, and UOP improving * Status post 2 units of packed red blood cells following amputation on 04/24 * Nephrology increasing Epoetin to 10,000 units with dialysis * Monitor CBC daily, PRBCs for Hgb <7 or sx * Surgical drain in place on RLE, to monitor for any acute increase in bleeding * ENDO: Diabetes * Hyperglycemia: HHS on admission, resolved on 04/22 but insulin drip resumed on 04/24. Discontinued insulin drip and started SSI on 04/25 * Blood glucose ranging from 100s-200s over last 24 hours, receiving supplemental Novolog PRN * A1c 17.7 * perinatal educator, household personal assistant consulted * TSH wnl * PROPH: anticoagulation held due to traumatic urethral injury on 04/21 * Famotidine 20mg IV BID for stress ulcer prophylaxis Discharge Planning Likely will have a prolonged hospital stay at this time for surgical management and acute medical conditions Case Management consulted for SNF placement Discussed with Dr. Nadira Mckeon Problem List: (1) Hyperammonemia ICD Codes: E72.20 - Disorder of urea cycle metabolism, unspecified (2) Compartment syndrome ICD Codes: T79.A0XA - Compartment syndrome, unspecified, initial encounter (3) Diabetes mellitus ICD Codes: E11.9 - Diabetes mellitus Status: Chronic (4) Hypertension ICD Codes: I10 - Hypertension Status: Acute (5) Acute renal failure ICD Codes: N17.9 - Acute kidney failure, unspecified (6) Hypernatremia ICD Codes: E87.0 - Hyperosmolality and hypernatremia (7) Hyperkalemia ICD Codes: E87.5 - Hyperkalemia (8) UTI (urinary tract infection) ICD Codes: N39.0 - Urinary tract infection, site not specified (9) Transaminitis ICD Codes: R74.0 - Nonspecific elevation of levels of transaminase and lactic acid dehydrogenase [LDH] Roma Armijo MD Apr 27, 2017 09:49"
[2017-04-27] MEDS: LEVOFLOXACIN 500 MG PREMIX INJ 100 ML IV SCH (15:28)
[2017-04-27] MEDS: HYDROmorphone HCL PF 2 MG/ML VIAL IV PUSH PRN ×2 (15:28→21:50)
--- NOTE | 2017-04-27 15:28 | HHI.CCPN ---
Subjective Remarks/Hospital Course 04/23: 67-year-old male from the [place] who presented to [facility] emergency department 04/21 and was admitted for DKA. He has h/o CKD, DM, hyperlipidemia Coronary artery disease with prior stent and CABG. He had acute kidney injury on admission and creatinine progressively worsened. On 04/23 he complained of not being able to move his right lower extremity and was noted to have a cool right lower extremity with evidence of compartment syndrome. Transaminases were elevated with AST >2000. CPK >100k. Vascular surgery consultation was obtained and he has undergone thrombectomy and R lower leg fasciotomy by Dr. Auguste. [facility] is consulted to assist with medical management. 04/24: Found to have ischemic right lower extremity with compartment syndrome. Underwent attempted revascularization and fasciotomy on 04/[address] Arrieta. Worsening renal function with worsening hyperkalemia this morning. Patient was initiated on hemodialysis following placement of Vas-Cath and central line for vascular access by dc this morning. He is maintaining his blood pressure and appears to be breathing fine. He does appear delirious currently. He does open eyes and follows commands appropriately. Denies any shortness of breath or chest pain. Right lower extremity with [place] wrap all the way up to the thigh and foot appears cyanotic/mottled with dark discoloration. Proximal thigh also reveals some mottling. 04/25: S/P amputation. Acid/base balance much improved. Hgb < 7, will transfuse 1 unit. 04/26: Slowly decreasing CK levels but kidney injury being protected somewhat by good urine output. HD 04/24, 04/25. He remains surprisingly alert and may go back to OR for debridement or closure today. 04/27: Continued good urine output but renal function markedly reduced, HD planned for friday. Right limb closed. CK remains elevated > 40,000. Objective Vital Signs Date Time Temp Pulse Resp B/P (MAP) Pulse Ox O2 Delivery O2 Flow Rate FiO2 04/27/17 14:00 98 04/27/17 10:58 98 21 04/27/17 08:00 98.9 12 109/38 (61) 04/27/17 07:00 Room Air 04/26/17 16:47 2 Intake and Output 04/27/17 04/27/17 04/28/17 08:00 16:00 00:00 Intake Total 0 ml Output Total 520 ml Balance -520 ml Result Diagram: 04/27/17 0350 04/27/17 0350 Objective Remarks GENERAL: Ill-appearing patient. SKIN: Warm and dry. No rash HEAD: Atraumatic. Normocephalic. EYES: Pupils equal and round, reactive bilaterally. No scleral icterus. No injection or drainage. ENT: No nasal bleeding or discharge. Mucous membranes pink and moist. NECK: Trachea midline. No airway obstruction. CARDIOVASCULAR: NL S1S2, regular, sinus tach on the monitor. No murmurs rubs or gallops. No JVD. RESPIRATORY: No accessory muscle use. Clear to auscultation. Breath sounds equal bilaterally. GASTROINTESTINAL: Abdomen soft, non-tender, nondistended. Bowel sounds present. No guarding. : [place] in place with sinai/tea urine. MUSCULOSKELETAL: s/p right leg amputation. Dressing intact, clean. NEUROLOGICAL: Awake and alert. Conversant. Some confusion though follows commands appropriately. No obvious cranial nerve deficits. Normal speech. Strength is 5 out of 5 in bilateral upper extremities and left lower extremity. A/P Assessment and Plan NEURO: Acute toxic metabolic encephalopathy on admission, resolved Hyperammonemia Oxycodone as needed for pain. Dilaudid as needed for breakthrough pain. Rifaximin 550 g by mouth twice a day, f/u ammonia level. Start lactulose again. RESP: Tobacco abuse Nasal cannula wean as tolerated CV: Right lower leg ischemia now status post thrombectomy and fasciotomy by Dr. Auguste Coronary artery disease with prior CABG and stent Hypertension Hyperlipidemia Hypotensive postoperatively, fluid responsive Bolus 1.5 L of NS and given albumin 25 g IV. Hemodynamic monitoring via arterial line. Avoid statin due to elevated LFTs may be elevated due to muscle injury. Was on heparin drip postoperatively. This has been held by Dr. Degroot due to bleeding at the fasciotomy site. Follow-up CBC - Ordered 2 L normal saline bolus this morning and he appeared to be intravascularly depleted as noted by cc collapse with ultrasound while placing Vas-Cath. GI/liver: Transaminases elevation which likely is related to muscle injury from acute rhabdomyolysis GI has evaluated and ordered liver w/u. GGT normal, doubt liver pathology. Elevated lipase noted? Defer to GI. Patient not complaining of any abdominal pain. Improving LFTs. FEN/RENAL: Acute rhabdomyolysis Acute kidney injury Acute hyperkalemia Acute hypernatremia Acute hypocalcemia Non-anion gap metabolic acidemia Nephrology has been following. Overnight Given 2 g calcium gluconate, 1 L normal saline bolus, Kayexalate 30 g , insulin 10 units IV, continued bicarbonate drip for potassium of 5.4. Stopped bicarbonate drip. Started on emergent hemodialysis 04/24 following Vas- Cath placement D/C bicarb gtt. Ca 1 gm iv ID: UTI On IV Levaquin for UTI per family medicine. Follow-up urine culture HEME: Acute blood loss anemia Follow-up serial hemoglobin ENDO: Acute hyperglycemia Diabetes mellitus D/C insulin drip to algorithm 3 . Start SSI PROPH: Was on heparin drip which is being held due to bleeding. Famotidine 20 mg IV every 12 hours for stress ulcer prophylaxis. ACCESS: Left radial art line 04/23 . Left IJ central line placed 04/24 Overall impression: Patient with resolving acute rhabdomyolysis, persistent CHANELL requiring dialysis. Renal function remains marginal. Marc Moulton MD Apr 27, 2017 15:28
--- NOTE | 2017-04-27 15:36 | HHI.NPPN ---
Subjective History of Present Illness 67 year old with Hypertension,DKA, DM, ARF Additional Remarks No acute complaints Objective Data Data Vital Signs Date Time Temp Pulse Resp B/P (MAP) Pulse Ox O2 Delivery O2 Flow Rate FiO2 04/27/17 14:00 98 04/27/17 12:00 92 04/27/17 10:58 98 21 04/27/17 10:00 101 04/27/17 08:00 98.9 97 12 109/38 (61) 98 04/27/17 08:00 97 04/27/17 07:00 100 Room Air 04/27/17 06:00 95 04/27/17 04:00 97.8 100 16 158/39 (78) 97 04/27/17 04:00 100 04/27/17 02:00 96 04/27/17 00:00 88 04/27/17 00:00 97.0 88 12 120/32 (61) 98 04/26/17 23:38 99 21 04/26/17 22:00 90 04/26/17 20:00 99 Room Air 04/26/17 20:00 96.9 101 16 150/53 (85) 99 Automatic Cuff 04/26/17 19:05 83 04/26/17 18:00 92 04/26/17 17:58 15 04/26/17 17:00 98 04/26/17 17:00 97.0 98 16 143/40 (74) 96 04/26/17 16:47 98.1 90 20 146/65 (92) 99 Nasal Cannula 2 138/44 (75) 04/26/17 16:45 146/65 (92) Nasal Cannula 2 138/44 (75) 04/26/17 16:30 145/65 (91) Nasal Cannula 2 147/49 (81) 04/26/17 16:15 79 20 148/67 (94) 100 Nasal Cannula 2 144/44 (77) 04/26/17 15:56 98.1 78 20 151/65 (93) 96 Nasal Cannula 2 144/44 (77) -: 04/27/17 0350 04/27/17 0350 Physical Exam General Appearance: Well Developed, Well Nourished Neck Neck Exam: Neck Supple Pulmonary Resp Exam: Clear Bilaterally, Breath Sounds Equal Cardiology CV Exam: Regular, Normal Sinus Rhythm Gastrointestinal/Abdomen GI Exam: Soft, Non-Tender, Bowel Sounds Present Extremeties Extremities Exam: Moderate Edema Neurologic Neuro Exam: Alert Assessment/Plan Problem List: (1) Acute renal failure ICD Codes: N17.9 - Acute kidney failure, unspecified Plan: Patient has chronic kidney disease and acute renal failure with rhabdomyolysis creatinine 4.53 -> 5.9 today 700 cc UOP Remains HD dependent. On HD MWF - had HD Friday. Will plan for next HD Friday Right lower leg ischemia now status post right AKA yesterday On epogen for anemia - transfuse as needed. (2) CKD (chronic kidney disease) stage 3, GFR 30-59 ml/min ICD Codes: N18.3 - Chronic kidney disease, stage 3 (moderate) Plan: kidney ultrasound left renal cyst (3) Diabetes ICD Codes: E11.9 - Type 2 diabetes mellitus without complications Plan: History of DKA continue to monitor (4) Hypertension ICD Codes: I10 - Hypertension Status: Acute Plan: BP stable (5) DKA (diabetic ketoacidoses) ICD Codes: E13.10 - Other specified diabetes mellitus with ketoacidosis without coma Status: Acute Plan: Resolved (6) Hypernatremia ICD Codes: E87.0 - Hyperosmolality and hypernatremia Plan: stable Quinn Correa MD Apr 27, 2017 15:36
--- NOTE | 2017-04-27 19:24 | PD.CAR.PN ---
CVT Progress Note Subjective/Hospital Course: 04/24/2017 Patient with total occlusion of the flow to her right leg underwent yesterday thromboembolectomy of the iliac and femoral systems and revascularization of the leg with fasciotomy Today while the patient has flow the leg from just above the knee down is purple and discolored It is insensate and patient has no motoric activity Muscles are discolored grayish appearing and devitalized At this point were essentially perfusing a devitalized extremity due to the length of time of occlusion of the blood flow Patient is now on dialysis consequently producing massive amounts of creatinine kinase with a massive breakdown of the muscle and of course resulting hyperkalemia and metabolic derangements I discussed this with his and this patient needs urgent above-knee amputation We will go ahead with surgery today considering that this is a nonviable extremity 04/25/2017 Patient underwent yesterday an urgent right above-knee guillotine staged amputation for worsening systemic acidemia/metabolic acidosis renal failure. He was found to have massive amount of muscle tissue which was clearly flushing out causing myoglobinuria and all the consequences of the same Patient now doing better systemically Wound VAC drainage is serosanguineous Once the swelling of the thigh goes down the bit possibly tomorrow will take patient back to the operating room to close the amputation site Patient's hemoglobin dropped to 6.9 this morning yet I was not informed about the despite the fact that have operated on this patient just few hours before Grateful for Dr. Moulton and his team for expert management Likely will take patient to the operating room tomorrow to close the stump 04/27/2017 Patient status post second stage above-knee amputation of the right leg with closure of the stump Area is clean KANCHAN drainage has decreased We will leave KANCHAN for another day and then remove it Patient doing systemically somewhat better Nothing to add to care at this time and hemoglobin remains stable Objective: Vital Signs Date Time Temp Pulse Resp B/P (MAP) Pulse Ox O2 Delivery O2 Flow Rate FiO2 04/27/17 19:00 100 Room Air 04/27/17 18:00 96 04/27/17 16:00 93 04/27/17 16:00 99.1 93 18 131/60 (83) 100 04/27/17 15:58 19 04/27/17 14:00 98 04/27/17 12:00 92 04/27/17 12:00 99.0 92 18 148/61 (90) 100 04/27/17 10:58 98 21 04/27/17 10:00 101 04/27/17 08:00 98.9 97 12 109/38 (61) 98 04/27/17 08:00 97 04/27/17 07:00 100 Room Air 04/27/17 06:00 95 04/27/17 04:00 97.8 100 16 158/39 (78) 97 04/27/17 04:00 100 04/27/17 02:00 96 04/27/17 00:00 88 04/27/17 00:00 97.0 88 12 120/32 (61) 98 04/26/17 23:38 99 21 04/26/17 22:00 90 04/26/17 20:00 99 Room Air 04/26/17 20:00 96.9 101 16 150/53 (85) 99 Automatic Cuff Result Diagram: 04/27/17 0350 04/27/17 0350 Jean Pierre Auguste MD Apr 27, 2017 19:24
[2017-04-27 23:52] LABS: MITOCHONDRIAL ABS LESS THAN 20.0 U (<=20.0)
[2017-04-28] VITALS (12 sets, daily range): BP systolic 119–156; BP diastolic 56–68; PULSE 88–116; RESP 10–20; TEMP 97–98.9; O2SAT 96–100
[2017-04-28] MEDS: INSULIN ASPART SUPPLEMENTAL SCALE SQ SCH ×6 (00:40→22:02)
[2017-04-28] MEDS: CHLORHEXIDINE GLUCONATE 2 % 1 PACK (2 CLOTHS) TOP SCH (00:41)
[2017-04-28 05:04] LABS: AUTOMATED NEUTROPHIL # 7.4 TH/MM3 (1.8-7.7); BASOPHIL % 0.2 % (0.0-2.0); EOSINOPHIL # 0.2 TH/MM3 (0-0.4); HEMATOCRIT 21.8 % (39.0-51.0); HEMOGLOBIN 7.5 GM/DL (13.0-17.0); LYMPH % 10.6 % (9.0-44.0); MEAN CELL VOLUME 93.1 FL (80.0-100.0); MEAN CORPUSCULAR HEMOGLOBIN 32.3 PG (27.0-34.0); MEAN CORPUSCULAR HGB CONC 34.7 % (32.0-36.0); MONO % 10.5 % (0.0-8.0); NEUT % 76.7 % (16.0-70.0); PLATELET COUNT 186 TH/MM3 (150-450); RED BLOOD COUNT 2.34 MIL/MM3 (4.50-5.90); RED CELL DISTRIBUTION WIDTH 14.9 % (11.6-17.2); WHITE BLOOD COUNT 9.7 TH/MM3 (4.0-11.0)
[2017-04-28] MEDS: FREE WATER PO SCH ×5 (06:00→22:02)
[2017-04-28 06:10] LABS: ALBUMIN 1.7 GM/DL (3.4-5.0); ALKALINE PHOSPHATASE 186 U/L (45-117); ALT (GPT) 46 U/L (12-78); AST (GOT) 226 U/L (15-37); BICARBONATE 25.1 MEQ/L (21.0-32.0); BLOOD UREA NITROGEN 68 MG/DL (7-18); CALCIUM 7.8 MG/DL (8.5-10.1); CHLORIDE 108 MEQ/L (98-107); CREATININE 7.26 MG/DL (0.60-1.30); GLOMERULAR FILTRATION RATE 8 ML/MIN (>89); GLUCOSE,RANDOM 273 MG/DL (74-106); SODIUM (NA) 147 MEQ/L (136-145); TOTAL BILIRUBIN ADULT 0.3 MG/DL (0.2-1.0); TOTAL PROTEIN 4.9 GM/DL (6.4-8.2)
[2017-04-28 06:39] LABS: BANDS 4 % (0-6); CORRECTED NUCLEATED RBC 1 /100 WBC (0-0); LYMPHOCYTES 4 % (9-44); METAMYELOCYTES 3 % (0-1); MONOCYTES 7 % (0-8); NEUTROPHIL # MANUAL DIFF 8.5 TH/MM3 (1.8-7.7); NUCLEATED RED BLOOD CELL 1 (0-0); POLYS (SEG NEUTROPHILS) 81 % (16-70)
[2017-04-28] MEDS: FAMOTIDINE 20 MG/2 ML VIAL IV PUSH SCH ×2 (08:48→22:01)
[2017-04-28] MEDS: HYDROmorphone HCL PF 2 MG/ML VIAL IV PUSH PRN (08:49)
[2017-04-28] MEDS: SODIUM CHLORIDE 0.9% FLUSH 10 ML FLUSH IV FLUSH SCH ×2 (08:49→22:00)
[2017-04-28] MEDS: RIFAXIMIN 550 MG TAB PO SCH ×2 (08:49→21:59)
--- NOTE | 2017-04-28 10:11 | HHI.FPPN ---
Subjective Remarks No acute events overnight. Patient undergoing HD when seen this morning. Patient passed his swallow study and was eating breakfast. Denies CP, SOB, N/V, abd pain. (Mango Cheung MD R1) Objective Vitals Vital Signs Date Time Temp Pulse Resp B/P (MAP) Pulse Ox O2 Delivery O2 Flow Rate FiO2 04/28/17 10:00 20 04/28/17 09:13 98 04/28/17 06:00 92 04/28/17 04:00 116 04/28/17 04:00 97.0 102 14 141/60 (87) 98 04/28/17 02:00 112 04/28/17 00:00 97.0 95 12 129/57 (81) 96 04/28/17 00:00 95 04/27/17 22:00 94 04/27/17 21:01 98 21 04/27/17 20:00 104 04/27/17 20:00 98.2 104 17 117/56 (76) 100 Arterial Line 04/27/17 19:00 100 Room Air 04/27/17 18:00 96 04/27/17 16:00 93 04/27/17 16:00 99.1 93 18 131/60 (83) 100 04/27/17 14:00 98 04/27/17 12:00 92 04/27/17 12:00 99.0 92 18 148/61 (90) 100 04/27/17 10:58 98 21 I/O 04/27/17 04/27/17 04/27/17 04/28/17 04/28/17 04/28/17 07:00 15:00 23:00 07:00 15:00 23:00 Intake Total 0 ml 120 ml 480 ml Output Total 520 ml 680 ml 470 ml Balance -520 ml -560 ml 10 ml Intake Oral 0 ml 20 ml 480 ml IV Total 100 ml Output Urine Total 500 ml 650 ml 450 ml Drainage Total 20 ml 30 ml 20 ml # Voids 0 # Bowel Movements 0 0 (Mango Cheung MD R1) Result Diagram: 04/28/17 0430 04/28/17 0430 Objective Remarks GENERAL: This is a cachectic male, laying in bed in NAD. Patient eating breakfast while undergoing HD SKIN: No rashes, ecchymoses or lesions outside of RLE as noted below. R internal jugular vas catheter and L internal jugular central line in place. Art line in place in LUE near wrist. Two peripheral lines on RUE. HEAD: Atraumatic. Normocephalic. EYES: Pupils equal round and reactive. Extraocular motions intact. ENT: Nose without bleeding or drainage. Airway patent. NECK: Trachea midline. No JVD or lymphadenopathy. Supple, nontender, no meningeal signs. CARDIOVASCULAR: Regular rate and rhythm without murmurs, gallops, or rubs. RESPIRATORY: Clear to auscultation. Breath sounds equal bilaterally. No wheezes , rales, or rhonchi. GASTROINTESTINAL: Abdomen soft, non-tender, nondistended. Hypoactive bowel sounds. No hepato-splenomegaly, or palpable masses. No guarding. MUSCULOSKELETAL: RLE with [id number] amputation with wound vac in place. Skin is warm above level of amputation. LLE warm to touch, +palpated left DP pulse NEUROLOGICAL: Cranial nerves grossly intact. Moving LLE and upper extremities spontaneously. Answers questions appropriately today. (Mango Cheung MD R1) A/P Assessment and Plan Patient is 67 year old Male with PMHx of HTN and DM presented to ED via [facility] due to 1 wk hx of decreased po intake. Patient found to be altered, hypertensive with blood glucose greater than 900, elevated anion gap of 29, beta hydroxy of 11.9. Patient admitted to management of DKA. Transitioned to SQ insulin on 04/22. Of note, communication with the patient has been difficult at times. [place] roller leveler was used on 04/23 as patient is primarily Georgian speaking, and the roller leveler could not understand the patient. Nursing staff and medical team has been able to communicate with the patient in Beninese successfully at times but he occasionally slurs his speech/is not understandable. On 04/23 patient was found to have significant transaminitis as well as worsening renal function. Nephrology, GI consulted. A discussion was had with the patient's on 04/23 and she stated that all of the patient's symptoms (including his R leg stiffness/loss of function) were new and that he had been found down for up to 5 hours before coming to the ER. Vascular was consulted at that time and it was noted that patient had no palpable pulses, either femoral, popliteal, dorsalis pedis or post tibial. Ultrasound revealed complete occlusion of blood flow to the R leg and patient was immediately taken to the OR for R leg clot fasciotomy thrombectomy. On 04/24 patient was found to have worsening renal function with Creatinine of 4.85 and a Potassium of 7.1. R int jugular vascular cath was placed and patient underwent HD at that time. Labs were indicative of rhabdomyolysis. Right above knee amputation with wound vac was performed on 04/24. Received one blood transfusion following the procedure. S/P closure of amputation site on 04/27. Getting HD MWF. Unclear clinical course ahead. Critical Care, Vascular, and Nephrology managing, appreciate assistance in this patient's care. * Neuro: intermittent AMS, possible CVA * Patient's states that his baseline is totally normal. Suspect possible CVA prior to ED arrival. Also suspecting Dementia vs delirium as patient continues to express lack of knowledge of his amputation at times * Last normal appears to be 7AM on 04/21/2017 per * Orders for CVA workup initiated, but as patient has multiple problems currently requiring intensive treatment, several of these studies may be delayed. Brain MRI/MRA noncontrast held, Carotid US held due to jugular venous lines placed, echocardiogram ordered, PT/OT/speech evaluations. CT head negative in ED. Consider ordering MRI once stable * No previous CVA history * Lipid profile showing triglycerides 200, cholesterol 155, LDL 102, HDL 12.6, A1c 17.7 * Will initiate atorvastatin once liver function is stable * Rehab at discharge * CV: Hx CABG remotely, Intermittent bradycardia, HTN, critical limb ischemia s/ p amputation * Continue telemetry * Echo 04/24 showing EF 60-65%, normal LV size, no noted wall motion abnormalities * HTN now being treated with amlodipine * Vascular surgery performed R leg clot fasciotomy thrombectomy on 04/23. * Right above knee amputation with wound vac was performed on 04/24. * POD #2 from amputation closure (performed 04/26) * GI: acute transaminitis, difficulty swallowing, hyperammonemia * Transaminitis resolving. Unclear etiology as LFTs were normal on admission, suspecting rhabdomyolysis as likely cause. * Was given Ofirmev x 1 on 04/22. Tylenol level is <2 today * Patient is asymptomatic, no jaundice or alcoholic history * Transaminases 3000 on 04/24. Bilirubin normal. Trending down with AST 226 on * CK improving but still markedly elevated. Normal on admission * Liver ultrasound on 04/24 showed findings consistent with hepatic steatosis versus medical liver disease. Cholelithiasis noted * Gastroenterology signed off on 04/24 * Hepatitis panel negative * Hyperammonemia of 75 and 04/24 - given Rifaximin 500 g BID and trending ammonia level. Improved to 33 on 04/28 * Speech therapy evaluated and now cleared for diet, puree and nectar thick liquids * FEN/RENAL: severe acute on chronic kidney disease, hypoalbuminemia, hypocalcemia * Creatinine 7.26, eGFR 8 - worsening: differential includes CKD, CHANELL from rhabdomyolysis. * Hypernatremia - minimally elevated at 147 * Hyperkalemia resolved currently * Hypocalcemia with calcium of 6.5 on 04/26, repletion IV per Crit Care * Urine prot/creat ratio 5.06, very elevated, suspect diabetic nephropathy * Renal US normal * Nephrology consulted, appreciate recommendations * Hemodialysis initiated 04/24, now MWF scheduled * ID: UTI complicated by male gender, race, urethral injury * Leukocytosis on admission resolved * VS not showing signs of systemic infection * CXR on admission normal * Patient removed catheter traumatically on 04/21/2017 * Catheter replaced and in place since admission * Given renal and liver disease, consulted Pharmacist consulting psychiatrist who recommended Levaquin, 750mg IV q 24hr, then 500mg IV q 48 started on 04/23 * Urine culture growing Klebsiella, Group B strep - pansensitive * Lactic acid 1.1 on 04/25 * CRP 21.10 on 04/24 * HEME: rhabdomyolysis, acute blood loss anemia * Urethral bleeding 2/2 traumatic catheter removal resolved * Urine color significantly improved, and UOP improving * Status post 2 units of packed red blood cells following amputation on 04/24 * Nephrology increasing Epoetin to 10,000 units with dialysis * Monitor CBC daily, PRBCs for Hgb <7 or sx * Surgical drain in place on RLE, to monitor for any acute increase in bleeding * Total creatinine kinase trending down ( >100,000 on 04/25 to 10,000 on 04/28) * ENDO: Diabetes * Hyperglycemia: HHS on admission, resolved on 04/22 but insulin drip resumed on 04/24. Discontinued insulin drip and started SSI on 04/25 * Blood glucose ranging from 100s-300s over last 24 hours, receiving supplemental Novolog PRN * A1c 17.7 * hematology nurse educator, boat puller consulted * TSH wnl * PROPH: anticoagulation held due to traumatic urethral injury on 04/21 * Famotidine 20mg IV BID for stress ulcer prophylaxis Discharge Planning Likely will have a prolonged hospital stay at this time for surgical management and acute medical conditions Case Management consulted for SNF placement Discussed with Dr. Nadira Mckeon, Dr. Roma Armijo (Mango Cheung MD R1) Attending Attestation Patient seen and examined. Case reviewed and discussed with the resident team. Patient remains pleasant and pain free. Very pleased that he is able to eat. Agree with plan of care as discussed with me and documented in the resident note. (Nadira Mckeon MD) Problem List: (1) Hyperammonemia ICD Codes: E72.20 - Disorder of urea cycle metabolism, unspecified (2) Compartment syndrome ICD Codes: T79.A0XA - Compartment syndrome, unspecified, initial encounter (3) Diabetes mellitus ICD Codes: E11.9 - Diabetes mellitus Status: Chronic (4) Hypertension ICD Codes: I10 - Hypertension Status: Acute (5) Acute renal failure ICD Codes: N17.9 - Acute kidney failure, unspecified (6) Hypernatremia ICD Codes: E87.0 - Hyperosmolality and hypernatremia (7) Hyperkalemia ICD Codes: E87.5 - Hyperkalemia (8) UTI (urinary tract infection) ICD Codes: N39.0 - Urinary tract infection, site not specified (9) Transaminitis ICD Codes: R74.0 - Nonspecific elevation of levels of transaminase and lactic acid dehydrogenase [LDH] (Mango Cheung MD R1) Mango Cheung MD R1 Apr 28, 2017 10:11 Nadira Mckeon MD Apr 28, 2017 12:20
--- NOTE | 2017-04-28 16:42 | PD.CAR.PN ---
CVT Progress Note Subjective/Hospital Course: 04/24/2017 Patient with total occlusion of the flow to her right leg underwent yesterday thromboembolectomy of the iliac and femoral systems and revascularization of the leg with fasciotomy Today while the patient has flow the leg from just above the knee down is purple and discolored It is insensate and patient has no motoric activity Muscles are discolored grayish appearing and devitalized At this point were essentially perfusing a devitalized extremity due to the length of time of occlusion of the blood flow Patient is now on dialysis consequently producing massive amounts of creatinine kinase with a massive breakdown of the muscle and of course resulting hyperkalemia and metabolic derangements I discussed this with his and this patient needs urgent above-knee amputation We will go ahead with surgery today considering that this is a nonviable extremity 04/25/2017 Patient underwent yesterday an urgent right above-knee guillotine staged amputation for worsening systemic acidemia/metabolic acidosis renal failure. He was found to have massive amount of muscle tissue which was clearly flushing out causing myoglobinuria and all the consequences of the same Patient now doing better systemically Wound VAC drainage is serosanguineous Once the swelling of the thigh goes down the bit possibly tomorrow will take patient back to the operating room to close the amputation site Patient's hemoglobin dropped to 6.9 this morning yet I was not informed about the despite the fact that have operated on this patient just few hours before Grateful for Dr. Moulton and his team for expert management Likely will take patient to the operating room tomorrow to close the stump 04/27/2017 Patient status post second stage above-knee amputation of the right leg with closure of the stump Area is clean KANCHAN drainage has decreased We will leave KANCHAN for another day and then remove it Patient doing systemically somewhat better Nothing to add to care at this time and hemoglobin remains stable 04/28/2017 Stump is clean and dry dressing is intact KANCHAN drainage about 130 cc in the last 24 hours We will likely DC KANCHAN tomorrow Patient may transfer to floor from my point Objective: Vital Signs Date Time Temp Pulse Resp B/P (MAP) Pulse Ox O2 Delivery O2 Flow Rate FiO2 04/28/17 16:00 107 04/28/17 16:00 98.0 107 20 136/63 (87) 100 04/28/17 14:00 98 04/28/17 12:00 97.6 112 16 120/60 (80) 100 04/28/17 12:00 112 04/28/17 10:00 100 04/28/17 10:00 20 04/28/17 09:13 98 04/28/17 08:00 100 Room Air 04/28/17 08:00 97.0 88 16 156/68 (97) 98 04/28/17 08:00 88 04/28/17 06:00 92 04/28/17 04:00 116 04/28/17 04:00 97.0 102 14 141/60 (87) 98 04/28/17 02:00 112 04/28/17 00:00 97.0 95 12 129/57 (81) 96 04/28/17 00:00 95 04/27/17 22:00 94 04/27/17 21:01 98 21 04/27/17 20:00 104 04/27/17 20:00 98.2 104 17 117/56 (76) 100 Arterial Line 04/27/17 19:00 100 Room Air 04/27/17 18:00 96 Result Diagram: 04/28/17 0430 04/28/17 0430 Jean Pierre Auguste MD Apr 28, 2017 16:42
--- NOTE | 2017-04-28 17:33 | HHI.NPPN ---
Subjective History of Present Illness 67 year old with Hypertension,DKA, DM, ARF Additional Remarks No acute complaints Objective Data Data Vital Signs Date Time Temp Pulse Resp B/P (MAP) Pulse Ox O2 Delivery O2 Flow Rate FiO2 04/28/17 16:00 107 04/28/17 16:00 98.0 107 20 136/63 (87) 100 04/28/17 14:00 98 04/28/17 12:00 97.6 112 16 120/60 (80) 100 04/28/17 12:00 112 04/28/17 10:00 100 04/28/17 10:00 20 04/28/17 09:13 98 04/28/17 08:00 100 Room Air 04/28/17 08:00 97.0 88 16 156/68 (97) 98 04/28/17 08:00 88 04/28/17 06:00 92 04/28/17 04:00 116 04/28/17 04:00 97.0 102 14 141/60 (87) 98 04/28/17 02:00 112 04/28/17 00:00 97.0 95 12 129/57 (81) 96 04/28/17 00:00 95 04/27/17 22:00 94 04/27/17 21:01 98 21 04/27/17 20:00 104 04/27/17 20:00 98.2 104 17 117/56 (76) 100 Arterial Line 04/27/17 19:00 100 Room Air 04/27/17 18:00 96 -: 04/28/17 0430 04/28/17 0430 Physical Exam General Appearance: Well Developed, Well Nourished Neck Neck Exam: Neck Supple Pulmonary Resp Exam: Clear Bilaterally, Breath Sounds Equal Cardiology CV Exam: Regular, Normal Sinus Rhythm Gastrointestinal/Abdomen GI Exam: Soft, Non-Tender, Bowel Sounds Present Extremeties Extremities Exam: Moderate Edema Extremeties Remarks Rt AKA Neurologic Neuro Exam: Alert Assessment/Plan Problem List: (1) Acute renal failure ICD Codes: N17.9 - Acute kidney failure, unspecified Plan: Patient has chronic kidney disease and acute renal failure with rhabdomyolysis creatinine 4.53 -> 5.9 -> 7.2 today 1100 cc UOP Remains HD dependent. On HD MWF - had HD Friday. HD Friday UF 2 L Right lower leg ischemia now status post right AKA On epogen for anemia - transfuse as needed. (2) CKD (chronic kidney disease) stage 3, GFR 30-59 ml/min ICD Codes: N18.3 - Chronic kidney disease, stage 3 (moderate) Plan: kidney ultrasound left renal cyst (3) Diabetes ICD Codes: E11.9 - Type 2 diabetes mellitus without complications Plan: History of DKA continue to monitor (4) Hypertension ICD Codes: I10 - Hypertension Status: Acute Plan: BP stable (5) DKA (diabetic ketoacidoses) ICD Codes: E13.10 - Other specified diabetes mellitus with ketoacidosis without coma Status: Acute Plan: Resolved (6) Hypernatremia ICD Codes: E87.0 - Hyperosmolality and hypernatremia Plan: stable Natacha Suarez MD Apr 28, 2017 17:33
[2017-04-29] VITALS: BP 133/60; PULSE 85; RESP 23; TEMP 98.7; O2SAT 98
[2017-04-29] MEDS: INSULIN ASPART SUPPLEMENTAL SCALE SQ SCH ×6 (01:24→21:15)
[2017-04-29] MEDS: CHLORHEXIDINE GLUCONATE 2 % 1 PACK (2 CLOTHS) TOP SCH ×2 (03:24→21:15)
[2017-04-29 04:00] VITALS: BP 157/70; PULSE 86; RESP 14; TEMP 98.6; O2SAT 99
[2017-04-29] MEDS: FREE WATER PO SCH (04:21)
[2017-04-29 06:09] LABS: AUTOMATED NEUTROPHIL # 9.8 TH/MM3 (1.8-7.7); BASOPHIL # 0.1 TH/MM3 (0-0.2); BASOPHIL % 0.4 % (0.0-2.0); EOSINOPHIL # 0.3 TH/MM3 (0-0.4); EOSINOPHIL % 2.2 % (0.0-4.0); HEMATOCRIT 22.5 % (39.0-51.0); HEMOGLOBIN 7.6 GM/DL (13.0-17.0); LYMPH % 13.5 % (9.0-44.0); LYMPHOCYTE # 1.8 TH/MM3 (1.0-4.8); MEAN CELL VOLUME 93.8 FL (80.0-100.0); MEAN CORPUSCULAR HEMOGLOBIN 31.7 PG (27.0-34.0); MEAN CORPUSCULAR HGB CONC 33.8 % (32.0-36.0); MEAN PLATELET VOLUME 9.2 FL (7.0-11.0); MONO % 9.3 % (0.0-8.0); MONOCYTE # 1.2 TH/MM3 (0-0.9); NEUT % 74.6 % (16.0-70.0); PLATELET COUNT 168 TH/MM3 (150-450); RED CELL DISTRIBUTION WIDTH 14.7 % (11.6-17.2); WHITE BLOOD COUNT 13.2 TH/MM3 (4.0-11.0)
[2017-04-29 06:36] LABS: ALBUMIN 1.8 GM/DL (3.4-5.0); ALKALINE PHOSPHATASE 221 U/L (45-117); ALT (GPT) 37 U/L (12-78); AST (GOT) 167 U/L (15-37); BICARBONATE 27.9 MEQ/L (21.0-32.0); BLOOD UREA NITROGEN 41 MG/DL (7-18); CHLORIDE 103 MEQ/L (98-107); CREATININE 5.31 MG/DL (0.60-1.30); GLOMERULAR FILTRATION RATE 11 ML/MIN (>89); GLUCOSE,RANDOM 152 MG/DL (74-106); SODIUM (NA) 143 MEQ/L (136-145); TOTAL BILIRUBIN ADULT 0.3 MG/DL (0.2-1.0); TOTAL PROTEIN 5.3 GM/DL (6.4-8.2)
[2017-04-29 08:00] VITALS: BP 151/68; PULSE 89; RESP 18; TEMP 98.4; O2SAT 96
[2017-04-29] MEDS: RIFAXIMIN 550 MG TAB PO SCH ×2 (08:54→21:13)
[2017-04-29] MEDS: SODIUM CHLORIDE 0.9% FLUSH 10 ML FLUSH IV FLUSH SCH ×2 (08:54→21:14)
[2017-04-29] MEDS: FAMOTIDINE 20 MG/2 ML VIAL IV PUSH SCH ×2 (08:54→21:14)
--- NOTE | 2017-04-29 09:29 | HHI.FPPN ---
Subjective Remarks Patient was seen and examined this morning. No fevers. He is comfortable and in no acute distress and had no overnight events. He denies any pain, shortness of breath, nausea, vomiting today. He is eating breakfast, pured foods at this time. Nurse states that his blood sugar was about 150 fasting this morning. No increased amount of drainage from the RLE drain. Objective Vitals Vital Signs Date Time Temp Pulse Resp B/P (MAP) Pulse Ox O2 Delivery O2 Flow Rate FiO2 04/29/17 08:00 98.4 89 18 151/68 (95) 96 04/29/17 04:00 98.6 86 14 157/70 (99) 04/29/17 04:00 98.6 86 14 157/70 (99) 99 04/29/17 00:00 98.7 85 23 133/60 (84) 98 04/28/17 23:00 21 04/28/17 20:00 98.8 103 20 119/56 (77) 98 04/28/17 16:35 98.9 96 20 140/66 (90) 97 04/28/17 16:00 107 04/28/17 16:00 98.0 107 20 136/63 (87) 100 04/28/17 14:00 98 04/28/17 12:00 97.6 112 16 120/60 (80) 100 04/28/17 12:00 112 04/28/17 10:00 100 04/28/17 10:00 20 I/O 04/28/17 04/28/17 04/28/17 04/29/17 04/29/17 04/29/17 07:00 15:00 23:00 07:00 15:00 23:00 Intake Total 480 ml 600 ml 120 ml Output Total 470 ml 450 ml 150 ml Balance 10 ml 150 ml -30 ml Intake Oral 480 ml 600 ml 120 ml Output Urine Total 450 ml 450 ml 120 ml Drainage Total 20 ml 30 ml # Bowel Movements 0 1 Result Diagram: 04/29/17 0425 04/29/17 0425 Imaging Last Impressions Liver Ultrasound 04/24/17 0000 Signed Impressions: Service Date/Time: April 15:02 - CONCLUSION: 1. Mild hepatomegaly with increased hepatic echogenicity likely reflecting hepatic steatosis versus medical liver disease. 2. Cholelithiasis with mildly distended gallbladder and gallbladder wall thickening which may be chronic in etiology. Further evaluation may be performed with HIDA scan if there is significant clinical concern regarding acute cholecystitis. Dmitriy Kumar MD Chest X-Ray 04/24/17 0000 Signed Impressions: Service Date/Time: April 08:20 - CONCLUSION: Right internal jugular vas catheter and left internal jugular central line are in good positions with their tips at the junction of the superior vena cava and right atrium. No pneumothorax is noted. Red Toro MD Renal Ultrasound 04/22/17 0000 Signed Impressions: Service Date/Time: Saturday, April 22, 2017 21:27 - CONCLUSION: No obstructive uropathy or other acute abnormality. Incidentally seen benign-appearing left renal cyst. Ash Mason MD Head CT 04/21/17 0000 Signed Impressions: Service Date/Time: Friday, April 21, 2017 18:29 - CONCLUSION: Normal noncontrast head CT. Ash Mason MD Objective Remarks GENERAL: This is a cachectic male, laying in bed in NAD. Patient eating breakfast SKIN: No rashes, ecchymoses or lesions outside of RLE as noted below. R internal jugular vas catheter and L internal jugular central line in place. One PIV on RUE which is leaking. HEAD: Atraumatic. Normocephalic. EYES: Pupils equal round and reactive. Extraocular motions intact. ENT: Nose without bleeding or drainage. Airway patent. NECK: Trachea midline. No JVD or lymphadenopathy. Supple, nontender, no meningeal signs. CARDIOVASCULAR: Regular rate and rhythm without murmurs, gallops, or rubs. RESPIRATORY: Clear to auscultation. Breath sounds equal bilaterally. No wheezes , rales, or rhonchi. GASTROINTESTINAL: Abdomen soft, non-tender, nondistended. Hypoactive bowel sounds. No hepato-splenomegaly, or palpable masses. No guarding. MUSCULOSKELETAL: RLE with [id number] amputation with drain in place. Skin is warm above level of amputation. LLE warm to touch, +palpated left DP pulse NEUROLOGICAL: Cranial nerves grossly intact. Moving LLE and upper extremities spontaneously. Answers questions appropriately today. Medications and IVs Inpatient Medications Acetaminophen (Tylenol) 650 mg UNSCH PRN PO for headach, pain, temp > 101F; Start 04/24/17 at 07:00 Albumin Human 100 ml @ 60 mls/hr UNSCH PRN IV WITH DIALYSIS Last administered on 04/24/17at 09:22; Start 04/24/17 at 07:00 Albuterol Sulfate (Albuterol Neb) 2.5 mg ONCE ONCE NEB Last administered on at 06:50; Start 04/24/17 at 06:30; Stop 04/24/17 at 06:31; Status DC Amlodipine Besylate (Norvasc) 5 mg ONCE ONCE PO Last administered on at 20:28; Start 04/22/17 at 19:15; Stop 04/22/17 at 19:17; Status DC Aspirin (Aspirin Chew) 162 mg DAILY PO ; Start 04/23/17 at 15:15; Stop 04/23/17 at 16:21; Status DC Calcium Chloride 1 gm/Dextrose 110 ml @ 110 mls/hr NOW ONCE IV ; Start at 06:45; Stop 04/24/17 at 06:45; Status DC Calcium Gluconate 1 gm/Dextrose 110 ml @ 110 mls/hr ONCE ONCE IV Last administered on 04/24/17at 07:35; Start 04/24/17 at 06:30; Stop 04/24/17 at 07:29 ; Status DC Calcium Gluconate 1 gm/Sodium Chloride 110 ml @ 110 mls/hr ONCE ONCE IV Last administered on 04/26/17at 12:35; Start 04/26/17 at 11:15; Stop 04/26/17 at 12:14 ; Status DC Calcium Gluconate 2 gm/Dextrose 120 ml @ 120 mls/hr ONCE ONCE IV Last administered on 04/23/17at 00:12; Start 04/23/17 at 23:30; Stop 04/24/17 at 00:29 ; Status DC Cefazolin Sodium (Ancef Inj) 2,000 mg ONCE ONCE IV ; Start 04/24/17 at 19:42; Stop 04/24/17 at 19:57; Status DC Ceftriaxone Sodium 1000 mg/ Sodium Chloride 100 ml @ 200 mls/hr Q24H IV ; Start 04/23/17 at 15:00; Stop 04/23/17 at 15:12; Status DC Chlorhexidine Gluconate (Chlorhexidine 2% Cloth) 3 pack UNSCH PRN TOP HYGIENIC CARE; Start 04/21/17 at 21:15 Clonidine (Catapres) 0.1 mg UNSCH PRN PO for BP > 180/100 X 2 readings; Start 04/24/17 at 07:00 Desmopressin Acetate 5 mcg/ Sodium Chloride 51.25 ml @ 100 mls/hr ONCE ONCE IV ; Start 04/26/17 at 15:45; Stop 04/26/17 at 16:15; Status DC Dextrose (D50w (Vial) Inj) 50 ml UNSCH PRN IV PUSH HYPOGLYCEMIA-SEE COMMENTS; Start 04/25/17 at 08:15 Dextrose/Sodium Chloride 1,000 ml @ 200 mls/hr Q5H IV ; Start 04/22/17 at 17:00 ; Stop 04/22/17 at 18:46; Status DC Diphenhydramine HCl (Benadryl) 25 mg UNSCH PRN PO for hives/itching/anaphylaxis ; Start 04/24/17 at 07:00 Epoetin Cristian (Epogen Inj) 10,000 units UNSCH PRN IV PUSH WITH DIALYSIS; Start 04/25/17 at 13:00 Famotidine (Pepcid Inj) 10 mg Q12HR IV PUSH Last administered on 04/29/17at 08: 54; Start 04/23/17 at 21:00 Furosemide (Lasix Inj) 40 mg ONCE ONCE IV PUSH Last administered on 04/24/17at 07:32; Start 04/24/17 at 06:30; Stop 04/24/17 at 06:31; Status DC Gelatin (Gelfoam 12 Mm/7 Mm Top) 1 foam UNSCH PRN TOP SEE LABEL COMMENTS; Start 04/24/17 at 07:00 Gentamicin Sulfate (Gentamicin Inj) 20 mg UNSCH PRN OTHER WITH DIALYSIS; Start 04/24/17 at 07:00 Glucagon (Glucagon Inj) 1 mg UNSCH PRN OTHER HYPOGLYCEMIA-SEE COMMENTS; Start 04/25/17 at 08:15 Heparin Sodium (Porcine) (Heparin Inj) UNSCH PRN .XX WITH DIALYSIS; Start at 07:00 Heparin Sodium/ Dextrose 250 ml @ 12.438 mls/ hr TITRATE PRN IV Coagulation Management Last administered on 04/23/17at 23:04; Start 04/23/17 at 20:45 Hydralazine HCl (Apresoline Inj) 10 mg Q6H PRN IV PUSH SBP> OR = 180, DBP> OR = 100 Last administered on 04/23/17at 01:05; Start 04/21/17 at 21:30 Hydromorphone HCl (Dilaudid Pf Inj) 0.2 mg Q4H PRN IV PUSH BREAKTHROUGH PAIN Last administered on 04/28/17at 08:49; Start 04/23/17 at 23:30 Insulin Aspart (NovoLOG SUPPLEMENTAL SCALE) 1 Q4H SQ Last administered on at 08:53; Start 04/25/17 at 09:00 Insulin Aspart (NovoLOG INJ) 5 units TIDAC SQ Last administered on 04/23/17at 17 :00; Start 04/22/17 at 18:45; Stop 04/24/17 at 04:34; Status DC Insulin Detemir (Levemir Inj) 5 units ONCE SQ ; Start 04/23/17 at 23:30; Stop at 02:00; Status DC Insulin Human Regular (NovoLIN R INJ) 10 units ONCE ONCE IV PUSH Last administered on 04/24/17at 05:30; Start 04/24/17 at 04:45; Stop 04/24/17 at 04:46 ; Status DC Insulin Human Regular 100 units/ Sodium Chloride 100 ml @ 2 mls/hr TITRATE PRN IV Blood Glucose Control; Start 04/24/17 at 10:15; Stop 04/25/17 at 08:11; Status DC Levofloxacin/ Dextrose 100 ml @ 100 mls/hr Q48H IV Last administered on at 15:28; Start 04/25/17 at 16:00 Mannitol (Mannitol Inj) 12.5 gm UNSCH PRN IV WITH DIALYSIS; Start 04/24/17 at 07:00 Miscellaneous Information ALL NURSING DEPARTME... UNSCH PRN .XX SEE LABEL COMMENTS; Start 04/26/17 at 15:54; Stop 04/27/17 at 15:53; Status DC Nitroglycerin (Nitrostat Sl) 0.4 mg UNSCH PRN SL CHEST PAIN; Start 04/24/17 at 07:00 Ondansetron HCl (Zofran Inj) 4 mg UNSCH PRN IV PUSH WITH DIALYSIS; Start at 07:00 Oxycodone HCl (Roxicodone) 10 mg Q4H PRN PO PAIN 8-10 Last administered on 04/29at 04:21; Start 04/23/17 at 23:30 Potassium Chloride 100 ml @ 50 mls/hr Q2H PRN IV SEE LABEL COMMENTS; Start 01/27 at 21:15; Stop 04/22/17 at 18:46; Status DC Rifaximin (Xifaxan) 550 mg BID PO Last administered on 04/29/17at 08:54; Start 04/24/17 at 09:00 Sodium Bicarbonate 50 meq/Dextrose 1,000 ml @ 150 mls/hr Q6H40M IV Last administered on 04/25/17at 04:54; Start 04/23/17 at 17:15; Stop 04/25/17 at 08:11 ; Status DC Sodium Bicarbonate 50 meq/Sterile Water 900 ml @ 75 mls/hr Q12H IV ; Start at 16:00; Stop 04/23/17 at 17:08; Status DC Sodium Polystyrene Sulfonate (Kayexalate Liq) 30 gm ONCE ONCE PO Last administered on 04/24/17at 07:32; Start 04/24/17 at 06:30; Stop 04/24/17 at 06:31 ; Status DC Sodium Bicarbonate (Sodium Bicarbonate 8.4% Inj) 100 meq ONCE ONCE IV PUSH Last administered on 04/24/17at 07:31; Start 04/24/17 at 06:30; Stop 04/24/17 at 06:31; Status DC Sodium Chloride (NS Flush) 5 ml UNSCH PRN IV FLUSH WITH DIALYSIS; Start at 07:00 Sodium Chloride 38.5 meq/Sterile Water 1,009.625 ml @ 84 mls/hr Q12H2M IV Last administered on 04/23/17at 08:02; Start 04/22/17 at 20:00; Stop 04/23/17 at 16:05 ; Status DC Sodium Phosphate 15 mmol/Sodium Chloride 105 ml @ 25 mls/hr UNSCH PRN IV SEE LABEL COMMENTS; Start 04/21/17 at 21:15 Water (Free Water) 200 ml Q6HR PO Last administered on 04/24/17at 06:00; Start 04/23/17 at 18:00 Urinary Catheter: No Vascular Central Line Catheter: Yes Line: Central Venous Catheter Side: Right Location: Jugular Reason for Continuation esrd on dialysis A/P Assessment and Plan Patient is 67 year old Male with PMHx of HTN and DM presented to ED via EVAC due to 1 wk hx of decreased po intake. Patient found to be altered, hypertensive with blood glucose greater than 900, elevated anion gap of 29, beta hydroxy of 11.9. Patient admitted to management of DKA. Transitioned to SQ insulin on 04/22. Of note, communication with the patient has been difficult at times. [employer] smooth and burr worker composites was used on 04/23 as patient is primarily Finnish speaking, and the smooth and burr worker composites could not understand the patient. Nursing staff and medical team has been able to communicate with the patient in Tajik successfully at times but he occasionally slurs his speech/is not understandable. On 04/23 patient was found to have significant transaminitis as well as worsening renal function. Nephrology, GI consulted. A discussion was had with the patient's on 04/23 and she stated that all of the patient's symptoms (including his R leg stiffness/loss of function) were new and that he had been found down for up to 5 hours before coming to the ER. Vascular was consulted at that time and it was noted that patient had no palpable pulses, either femoral, popliteal, dorsalis pedis or post tibial. Ultrasound revealed complete occlusion of blood flow to the R leg and patient was immediately taken to the OR for R leg clot fasciotomy thrombectomy. On 04/24 patient was found to have worsening renal function with Creatinine of 4.85 and a Potassium of 7.1. R int jugular vascular cath was placed and patient underwent HD at that time. Labs were indicative of rhabdomyolysis. Right above knee amputation with wound vac was performed on 04/24. Received one blood transfusion following the procedure. S/P closure of amputation site on 04/27 with drain removal 04/29. Getting HD MWF. Unclear clinical course ahead. Palliative care consulted 04/29 to further elucidate goals of care. Critical Care, Vascular, and Nephrology managing, appreciate assistance in this patient's care. Critical Care signed off 04/28. * Neuro: intermittent AMS resolved, Dementia * Patient's states that his baseline is totally normal. Suspect possible CVA prior to ED arrival. Also suspecting Dementia vs delirium as patient continues to express lack of knowledge of his amputation at times * Last normal appears to be 7AM on 04/21/2017 per * Orders for CVA workup initiated, but as patient has multiple problems currently requiring intensive treatment, several of these studies may be delayed. Brain MRI/MRA noncontrast held, Carotid US held due to jugular venous lines placed, echocardiogram ordered and overall unremarkable, PT/OT/speech evaluations. CT head negative in ED. Consider ordering MRI once stable * No previous CVA history * Lipid profile showing triglycerides 200, cholesterol 155, LDL 102, HDL 12.6, A1c 17.7 * Will initiate atorvastatin once liver function is stable * Rehab at discharge * CV: Hx CABG remotely, Intermittent bradycardia, HTN, critical limb ischemia s/ p amputation * Continue telemetry * Echo 04/24 showing EF 60-65%, normal LV size, no noted wall motion abnormalities * HTN now being treated with amlodipine, wnl overall over 24hr * Vascular surgery performed R leg clot fasciotomy thrombectomy on 04/23. * Right above knee amputation with wound vac was performed on 04/24. * POD #2 from amputation closure (performed 04/26) * GI: acute transaminitis, difficulty swallowing, hyperammonemia * Transaminitis resolving. Unclear etiology as LFTs were normal on admission, suspecting rhabdomyolysis as likely cause. * Was given Ofirmev x 1 on 04/22. Tylenol level normal * Patient is asymptomatic, no jaundice or alcoholic history * Transaminases 3000 on 04/24. Bilirubin normal. Trending down * CK improving but still markedly elevated but improving. Normal on admission * US Liver on 04/24 showed findings consistent with hepatic steatosis versus medical liver disease. Cholelithiasis noted. * Gastroenterology signed off on 04/24. * Hepatitis panel negative. * Hyperammonemia of 75 and 04/24 - given Rifaximin 500 g BID and trending ammonia level. Improved to 33 on 04/28. Recheck 04/30 * Speech therapy evaluated and now cleared for diet, puree and nectar thick liquids. * FEN/RENAL: acute renal failure complicated by chronic kidney disease, hypoalbuminemia, hypocalcemia, rhabdomyolysis * Creatinine improved after HD but still elevated at 85.3, GFR 11 * Hypernatremia resolved * Hyperkalemia resolved * Hypocalcemia improved * Urine prot/creat ratio 5.06, very elevated, suspect diabetic nephropathy * Renal US normal * Nephrology consulted, appreciate recommendations * Hemodialysis dependent initiated 04/24, now scheduled MWF. 2L removed 04/28. Has UOP 570cc so far today. * ID: UTI complicated by male gender, race, urethral injury, Leukocytosis 04/29 * Leukocytosis on admission resolved but recurred 04/29, will monitor. No signs of infection, afebrile. Repeat CBC this afternoon, if still elevated may initiate w/u * VS not showing signs of systemic infection * CXR on admission normal * Patient removed catheter traumatically on 04/21/2017 * Catheter replaced and in place since admission * Given renal and liver disease, consulted Pharmacist audio production engineer who recommended Levaquin, 750mg IV q 24hr, then 500mg IV q 48 started on 04/23. Will continue for 10 day course. * Urine culture growing Klebsiella, Group B strep - pansensitive * Lactic acid 1.1 on 04/25 * CRP 21.10 on 04/24 * HEME: rhabdomyolysis, acute blood loss anemia, anemia of chronic disease * Goal Hgb > 7 * Nephrology started Epoetin 10,000 units with dialysis * Urethral bleeding 2/ traumatic catheter removal resolved * Urine color significantly improved, and UOP improving * Status post 2 units of packed red blood cells following amputation on 04/24 * Monitor CBC daily, PRBCs for Hgb <7 or sx * Surgical drain in place on RLE, to monitor for any acute increase in bleeding * Total creatinine kinase trending down * ENDO: Diabetes * Hyperglycemia: HHS on admission, resolved on 04/22 but insulin drip resumed on 04/24. Discontinued insulin drip and started SSI on 04/25 * Blood glucose ranging from 100s-300s over last 24 hours, receiving supplemental Novolog PRN * A1c 17.7 * coding educator, vacuum filter operator consulted * TSH wnl * On pureed diet, will resume diabetic foods once tolerating solids * PROPH/LINES: * Famotidine 20mg IV BID for stress ulcer prophylaxis Discharge Planning Anticipate transition to long-term care facility (or SNF) with dialysis, rehab, medication administration. Case Management consulted for SNF placement sdw Dr. Cheung Problem List: (1) Hyperammonemia ICD Codes: E72.20 - Disorder of urea cycle metabolism, unspecified (2) Compartment syndrome ICD Codes: T79.A0XA - Compartment syndrome, unspecified, initial encounter (3) Diabetes mellitus ICD Codes: E11.9 - Diabetes mellitus Status: Chronic (4) Hypertension ICD Codes: I10 - Hypertension Status: Acute (5) Acute renal failure ICD Codes: N17.9 - Acute kidney failure, unspecified (6) Hypernatremia ICD Codes: E87.0 - Hyperosmolality and hypernatremia (7) Hyperkalemia ICD Codes: E87.5 - Hyperkalemia (8) UTI (urinary tract infection) ICD Codes: N39.0 - Urinary tract infection, site not specified (9) Transaminitis ICD Codes: R74.0 - Nonspecific elevation of levels of transaminase and lactic acid dehydrogenase [LDH] Roma Armijo MD Apr 29, 2017 09:29
--- NOTE | 2017-04-29 11:18 | HHI.NPPN ---
Subjective History of Present Illness 67 year old with Hypertension,DKA, DM, ARF Additional Remarks No acute complaints Objective Data Data Vital Signs Date Time Temp Pulse Resp B/P (MAP) Pulse Ox O2 Delivery O2 Flow Rate FiO2 04/29/17 08:00 98.4 89 18 151/68 (95) 96 04/29/17 04:00 98.6 86 14 157/70 (99) 04/29/17 04:00 98.6 86 14 157/70 (99) 99 04/29/17 00:00 98.7 85 23 133/60 (84) 98 04/28/17 23:00 21 04/28/17 20:00 98.8 103 20 119/56 (77) 98 04/28/17 16:35 98.9 96 20 140/66 (90) 97 04/28/17 16:00 107 04/28/17 16:00 98.0 107 20 136/63 (87) 100 04/28/17 14:00 98 04/28/17 12:00 97.6 112 16 120/60 (80) 100 04/28/17 12:00 112 -: 04/29/17 0425 04/29/17 0425 Physical Exam General Appearance: Well Developed, Well Nourished Neck Neck Exam: Neck Supple Pulmonary Resp Exam: Clear Bilaterally, Breath Sounds Equal Cardiology CV Exam: Regular, Normal Sinus Rhythm Gastrointestinal/Abdomen GI Exam: Soft, Non-Tender, Bowel Sounds Present Extremeties Extremities Exam: Moderate Edema Extremeties Remarks Rt AKA Neurologic Neuro Exam: Alert Assessment/Plan Problem List: (1) Acute renal failure ICD Codes: N17.9 - Acute kidney failure, unspecified Plan: Patient has chronic kidney disease and acute renal failure with rhabdomyolysis creatinine 4.53 -> 5.9 -> 7.2 -> 5.3 570 cc UOP Remains HD dependent. CPK declined On HD MWF - had HD yesterday UF 2 L Right lower leg ischemia now status post right AKA On epogen for anemia - transfuse as needed. (2) CKD (chronic kidney disease) stage 3, GFR 30-59 ml/min ICD Codes: N18.3 - Chronic kidney disease, stage 3 (moderate) Plan: kidney ultrasound left renal cyst (3) Diabetes ICD Codes: E11.9 - Type 2 diabetes mellitus without complications Plan: History of DKA continue to monitor (4) Hypertension ICD Codes: I10 - Hypertension Status: Acute Plan: BP stable (5) DKA (diabetic ketoacidoses) ICD Codes: E13.10 - Other specified diabetes mellitus with ketoacidosis without coma Status: Acute Plan: Resolved (6) Hypernatremia ICD Codes: E87.0 - Hyperosmolality and hypernatremia Plan: stable Natacha Suarez MD Apr 29, 2017 11:18
[2017-04-29 12:00] VITALS: BP 153/69; PULSE 90; RESP 18; TEMP 97.9; O2SAT 98
[2017-04-29] MEDS: HEPARIN SODIUM - SQ 10,000 UNITS/ML VIAL SQ SCH (12:21)
--- NOTE | 2017-04-29 12:36 | PD.CONS ---
Consult Service Palliative Care Consult Requested By Dr. Diamante Armijo . Primary Care Physician Unknown Reason for Consultation a. To assist with evaluation and management of symptoms including:Pain, debility b. To assist medical decision maker(s) with: better understanding of current medical conditions; weighing benefits/burdens of medical treatment options; making medical treatment decisions. HPI History of Present Illness Mr. Caceres is a 67 years old male with a past medical history significant for coronary artery disease s/p CABG and 2 coronary stent placement , myocardial infarction, peripheral arterial disease, diabetes mellitus, hypertension and hyperlipidemia. Patient was brought to the ER on 04/21/17 by EMS after his found patient down when she arrived back from work at 1300hrs and he had slurred speech. Patient`s had last seen patient normal around 7a.m in the morning before leaving for work. Patient had had decreased appetite, increased thirst for approximately a week prior to ER visit. He was partially oriented with some confusion when he arrived in the ER. ER course: * Vital signs: Temperature 99.1, pulse 98, respirations 22, BP 156/73, O2 saturation 97% on room air. * EKG revealed sinus rhythm with enlargement of left atrial and left ventricular hypertrophy. * Chest x-ray revealed no acute disease * Head CT was normal. * Laboratory workup revealed WBC 6.3, hemoglobin 15.7, hematocrit 51.5, platelet count 205, sodium 153, potassium 3.8, BUN/creatinine 109/3.46, random glucose 992, AST 12, ALT 16, BNP 41, total protein 6.3, albumin 2.9, CK-MB 4.8. Troponin 0.04.Beta hydroxybutyrate 11.9. * ABG revealed pH of 7.194, bicarbonate 12.5, PCO2 33.9 * Blood sugar 992, 7 units insulin bolus administered and started on insulin infusion and 10mg IVP hydralazine administered. * Patient received 2 L normal saline bolus * Montalvo catheter inserted * UA done culture positive for Klebsiella pneumonia group B beta strep. * Patient was admitted under the medicine service under Dr. Livan Mckeon. Nephrology Dr. Suarez consulted on 04/22/17 for evaluation and management of acute and chronic kidney disease. Renal ultrasound on 04/22 revealed benign appearing left renal cyst and no obstructive uropathy. On 04/22, patient was noted to have right leg in a contracture position with decreased range of motion. On 04/23 right leg was cold to touch. Interventional radiology Dr. Porter consulted for evaluation of cold pulseless right leg. Ultrasound revealed complete thrombosis of the external iliac circulation, the common femoral, profunda femoral, superficial femoral and popliteal arteries and no flow was identified within the runoff vessels below the level of the knee. Per interventional radiology, patient was found not to be a candidate for thrombolysis due to the extensive amount of thrombus, severe ischemic changes in loss of motor function. IR recommended open thrombectomy. Dr. Auguste consulted on 04/22 for evaluation of pain in the right leg. On 04/23 patient underwent thrombectomy and right lower leg fasciotomy and was transferred to ICU post surgery. GI Dr. Hernandez consulted for evaluation and management of elevated transaminases. Critical care management physician Dr. Boss consulted for management of post surgical patient. On 04/24 right lower extremity was noted to be purplish in color. Clinical course complicated with worsening renal function, delirium and non-salvageable lower extremity ischemia requiring amputation of right lower extremity. On 04/25/17, patient underwent emergent above-knee amputation of right leg due to worsening systemic acidemia/metabolic acidosis renal failure. Patient was in severe rhabdomyolysis. On 04/24, Vas- Cath was placed and patient was started on emergent hemodialysis. Palliative care consulted to assist with establishing goals of care. Patient seen and examined in his room. He is sitting up in bed, alert and oriented to self, place and situation with some confusion to time. Patient is from [place] but is able to converse in M[place]ese. Obtained psychosocial. Patient was able to provide most of his medical history though he appears to lack insight regarding his medical condition. Addressed code status, discussed risks and limitations of CPR. He elected full code. Further explained what that entails and patient stated that his will decide what to do. Patient has never completed advance directives. Patient stated that in the event that he is incapacitated to make his own medical decisions he would want his Mariann to be his health care surrogate (HCS)and his son Dajuan to be his alternate HCS. Encouraged patient to further discuss his wishes with his . Assisted patient with completing HCS form. Brief telephone conversation with patient`s Mariann, updated her on patient`s current status. Confirmed psychosocial and past medical history. Patient`s stated that patient may not have completed advance directives but they have discussed code status in the past and patient had indicated that he would never want to be resuscitated or be intubated and placed on mechanical ventilation. Patient`s would like to further discuss this issue with her . Meeting with palliative care scheduled for 04/30/17. . Function/Cognitive Trajectory Patient lived at home with his . Independent of al his ADLs. Will obtain further information from . Patient underwent Right above knee amputation this hospitalization. . Review of Systems Constitutional: COMPLAINS OF: Fatigue, Change in appetite, Generalized weakness Endocrine: COMPLAINS OF: Polydipsia Eyes: DENIES: Eye inflammation Ears, nose, mouth, throat: DENIES: Nasal discharge Respiratory: DENIES: Cough, Wheezing, Shortness of breath Cardiovascular: DENIES: Chest pain, Lower Extremity Edema Gastrointestinal: DENIES: Nausea, Vomiting Musculoskeletal: DENIES: Decreased range of motion Hematologic/Lymphatics: COMPLAINS OF: Bruising, History of transfusions Neurologic: DENIES: Headache Psychiatric: COMPLAINS OF: Anxiety, Confusion Past Family Social History Coded Allergies: No Known Allergies (Verified Allergy, Unknown, 04/22/17) Past Medical History Myocardial infarction s/p stent placement Coronary artery disease Diabetes mellitus Peripheral arterial disease Hypertension Upper GI bleed due to gastric AVMs, s/p cautery in 2009 Hypokalemia Erosive gastritis CABG x 4 . Past Surgical History CABG x 4 07/02/2010 EGD in 2008 Left heart catheterization, 2010 . Reported Medications Flagyl (Metronidazole) 500 Mg Tab 500 Mg PO BID 7 Days Cipro (Ciprofloxacin HCl) 500 Mg Tab 500 Mg PO BID 7 Days Keflex (Cephalexin) 500 Mg Cap 500 Mg PO Q8H Bactrim DS (Sulfamethoxazole-Trimethoprim) 800-160 Mg Tab 1 Tab PO BID . Current Medications Medications (Trade) Dose Ordered Sig/Erick Route Start Time Stop Time Status Last Admin (NS Flush) 2 ml UNSCH PRN IV FLUSH 04/21/17 20:45 (NS Flush) 2 ml BID IV FLUSH 04/21/17 21:00 04/29/17 08:54 Sodium Phosphate 15 mmol/Sodium Chloride 105 ml @ 25 mls/hr UNSCH PRN IV 04/21/17 21:15 Miscellaneous Information 1 Q361D XX 04/21/17 21:15 04/22/17 03:07 (Chlorhexidine 2% Cloth) Taper DAILY@04 TOP 04/22/17 04:00 04/18/18 03:59 (Chlorhexidine 2% Cloth) 3 pack UNSCH PRN TOP 04/21/17 21:15 (Apresoline Inj) 10 mg Q6H PRN IV PUSH 04/21/17 21:30 04/23/17 01:05 (Zofran Inj) 4 mg Q8HR PRN IV PUSH 04/22/17 17:00 Levofloxacin/ Dextrose 100 ml @ 100 mls/hr Q48H IV 04/25/17 16:00 04/27/17 15:28 (Pepcid Inj) 10 mg Q12HR IV PUSH 04/23/17 21:00 04/29/17 08:54 (Roxicodone) 5 mg Q4H PRN PO 04/23/17 23:30 04/28/17 16:04 (Roxicodone) 10 mg Q4H PRN PO 04/23/17 23:30 04/29/17 04:21 (Dilaudid Pf Inj) 0.2 mg Q4H PRN IV PUSH 04/23/17 23:30 04/28/17 08:49 (Xifaxan) 550 mg BID PO 04/24/17 09:00 04/29/17 08:54 Sodium Chloride 1,000 ml @ 0 mls/hr Q0M PRN OTHER 04/24/17 06:57 (Heparin Inj) 8,000 units UNSCH PRN IV FLUSH 04/24/17 07:00 Sodium Chloride 1,000 ml @ 200 mls/hr Q5H PRN IV 04/24/17 06:57 Sodium Chloride 1,000 ml @ 0 mls/hr Q0M PRN OTHER 04/24/17 06:57 (Mannitol Inj) 12.5 gm UNSCH PRN IV 04/24/17 07:00 Albumin Human 100 ml @ 60 mls/hr UNSCH PRN IV 04/24/17 07:00 04/24/17 09:22 (NS Flush) 5 ml UNSCH PRN IV FLUSH 04/24/17 07:00 (Heparin Inj) UNSCH PRN .XX 04/24/17 07:00 (Gentamicin Inj) 20 mg UNSCH PRN OTHER 04/24/17 07:00 (Zofran Inj) 4 mg UNSCH PRN IV PUSH 04/24/17 07:00 (Tylenol) 650 mg UNSCH PRN PO 04/24/17 07:00 (Benadryl) 25 mg UNSCH PRN PO 04/24/17 07:00 (Nitrostat Sl) 0.4 mg UNSCH PRN SL 04/24/17 07:00 (Catapres) 0.1 mg UNSCH PRN PO 04/24/17 07:00 (Gelfoam 12 Mm/7 Mm Top) 1 foam UNSCH PRN TOP 04/24/17 07:00 (D50w (Vial) Inj) 50 ml UNSCH PRN IV PUSH 04/24/17 10:15 (D50w (Vial) Inj) 50 ml UNSCH PRN IV PUSH 04/25/17 08:15 (Glucagon Inj) 1 mg UNSCH PRN OTHER 04/25/17 08:15 (NovoLOG SUPPLEMENTAL SCALE) 1 Q4H SQ 04/25/17 09:00 04/29/17 08:53 (Epogen Inj) 10,000 units UNSCH PRN IV PUSH 04/25/17 13:00 Family History Mother at age 99 . Substance Use Tobacco: Smokes half a pack cigarettes per day Alcohol: Denies Prescription med abuse: Denies Illicits: Denies . Psychosocial History Patient is originally from [place]. He came [place]. He got and moved to [place] in 1984 with his of +25 years. 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 Patient has 2 adult children, a daughter Junior and son Dajuan. Patient lives with his Mariann. . 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 Living Will: Never completed Health Care Surrogate: Copy in medical record Durable Power of Record Systems Analyst: Never completed Date completed: 04/29/2017 . Health Care Surrogate(s): [facility]-Spouse- Mariann Lozano-[phone] Alternate [facility]- DajuanMorris . Today's verbally stated goals: Patient states that he has to learn how to perform his ADLs since he recently had RAKA. . Ethical and Legal Issues None identified at this time. . Physical Exam Vital Signs Date Time Temp Pulse Resp B/P (MAP) Pulse Ox O2 Delivery O2 Flow Rate FiO2 04/29/17 08:00 98.4 89 18 151/68 (95) 96 04/29/17 04:00 98.6 86 14 157/70 (99) 04/29/17 04:00 98.6 86 14 157/70 (99) 99 04/29/17 00:00 98.7 85 23 133/60 (84) 98 04/28/17 23:00 21 04/28/17 20:00 98.8 103 20 119/56 (77) 98 04/28/17 16:35 98.9 96 20 140/66 (90) 97 04/28/17 16:00 107 04/28/17 16:00 98.0 107 20 136/63 (87) 100 04/28/17 14:00 98 04/28/17 12:00 97.6 112 16 120/60 (80) 100 04/28/17 12:00 112 Exam CONSTITUTIONAL/GENERAL: This is an adequately nourished patient, in no apparent distress. TUBES/LINES/DRAINS: Vas Cath, Central line, KANCHAN drain to R-stump SKIN: No jaundice, rashes, or lesions. Ecchymoses on upper extremities.Surgical incision to R-AKA. Skin temperature appropriate. Not diaphoretic. HEAD: Atraumatic. Normocephalic. EYES: Pupils equal and round and reactive. Extraocular motions intact. No scleral icterus. No injection or drainage. Fundi not examined. ENT: Hearing grossly normal. Nose without bleeding or purulent drainage. NECK: Trachea midline. Supple, nontender. CARDIOVASCULAR: Regular rate and rhythm without murmurs, gallops, or rubs. No JVD. Weak pulse to LLE RESPIRATORY/CHEST: Symmetric, unlabored respirations. Clear to auscultation. Breath sounds equal bilaterally. No wheezes, rales, or rhonchi. GASTROINTESTINAL: Abdomen soft, non-tender, nondistended. No guarding. Bowel sounds present. GENITOURINARY: Without palpable bladder distension. MUSCULOSKELETAL: Extremities without clubbing, cyanosis, or edema. No joint tenderness or effusion noted. No calf tenderness. No mottling or clubbing. NEUROLOGICAL: Awake and alert X3 Motor and sensory grossly within normal limits. Follows commands. Moves all extremities. PSYCHIATRIC: No obvious anxiety/depression. no apparent hallucinations or other psychotic thought process. Diagnostic Tests Laboratory Laboratory Tests Test 04/27/17 03:50 04/28/17 04:30 04/29/17 04:25 White Blood Count 9.3 TH/MM3 (4.0-11.0) 9.7 TH/MM3 (4.0-11.0) 13.2 TH/MM3 (4.0-11.0) Red Blood Count 2.57 MIL/MM3 (4.50-5.90) 2.34 MIL/MM3 (4.50-5.90) 2.40 MIL/MM3 (4.50-5.90) Hemoglobin 8.1 GM/DL (13.0-17.0) 7.5 GM/DL (13.0-17.0) 7.6 GM/DL (13.0-17.0) Hematocrit 23.3 % (39.0-51.0) 21.8 % (39.0-51.0) 22.5 % (39.0-51.0) Mean Corpuscular Volume 90.5 FL (80.0-100.0) 93.1 FL (80.0-100.0) 93.8 FL (80.0-100.0) Mean Corpuscular Hemoglobin 31.5 PG (27.0-34.0) 32.3 PG (27.0-34.0) 31.7 PG (27.0-34.0) Mean Corpuscular Hemoglobin Concent 34.8 % (32.0-36.0) 34.7 % (32.0-36.0) 33.8 % (32.0-36.0) Red Cell Distribution Width 15.4 % (11.6-17.2) 14.9 % (11.6-17.2) 14.7 % (11.6-17.2) Platelet Count 115 TH/MM3 (150-450) 186 TH/MM3 (150-450) 168 TH/MM3 (150-450) Mean Platelet Volume 8.9 FL (7.0-11.0) 9.0 FL (7.0-11.0) 9.2 FL (7.0-11.0) Neutrophils (%) (Auto) 75.5 % (16.0-70.0) 76.7 % (16.0-70.0) 74.6 % (16.0-70.0) Lymphocytes (%) (Auto) 12.2 % (9.0-44.0) 10.6 % (9.0-44.0) 13.5 % (9.0-44.0) Monocytes (%) (Auto) 10.1 % (0.0-8.0) 10.5 % (0.0-8.0) 9.3 % (0.0-8.0) Eosinophils (%) (Auto) 1.9 % (0.0-4.0) 2.0 % (0.0-4.0) 2.2 % (0.0-4.0) Basophils (%) (Auto) 0.3 % (0.0-2.0) 0.2 % (0.0-2.0) 0.4 % (0.0-2.0) Neutrophils # (Auto) 7.0 TH/MM3 (1.8-7.7) 7.4 TH/MM3 (1.8-7.7) 9.8 TH/MM3 (1.8-7.7) Lymphocytes # (Auto) 1.1 TH/MM3 (1.0-4.8) 1.0 TH/MM3 (1.0-4.8) 1.8 TH/MM3 (1.0-4.8) Monocytes # (Auto) 0.9 TH/MM3 (0-0.9) 1.0 TH/MM3 (0-0.9) 1.2 TH/MM3 (0-0.9) Eosinophils # (Auto) 0.2 TH/MM3 (0-0.4) 0.2 TH/MM3 (0-0.4) 0.3 TH/MM3 (0-0.4) Basophils # (Auto) 0.0 TH/MM3 (0-0.2) 0.0 TH/MM3 (0-0.2) 0.1 TH/MM3 (0-0.2) CBC Comment AUTO DIFF AUTO DIFF DIFF FINAL Differential Total Cells Counted 100 100 Neutrophils % (Manual) 85 % (16-70) 81 % (16-70) Band Neutrophils % 1 % (0-6) 4 % (0-6) Lymphocytes % 5 % (9-44) 4 % (9-44) Monocytes % 6 % (0-8) 7 % (0-8) Eosinophils % 3 % (0-4) 1 % (0-4) Neutrophils # (Manual) 8.0 TH/MM3 (1.8-7.7) 8.5 TH/MM3 (1.8-7.7) Nucleated Red Blood Cells 1 /100 WBC (0-0) 1 /100 WBC (0-0) Differential Comment FINAL DIFF MANUAL FINAL DIFF MANUAL Platelet Estimate LOW (NORMAL) NORMAL (NORMAL) Platelet Morphology Comment NORMAL (NORMAL) NORMAL (NORMAL) Red Cell Morphology Comment NORMAL (NORMAL) Blood Urea Nitrogen 61 MG/DL (7-18) 68 MG/DL (7-18) 41 MG/DL (7-18) Creatinine 5.94 MG/DL (0.60-1.30) 7.26 MG/DL (0.60-1.30) 5.31 MG/DL (0.60-1.30) Random Glucose 135 MG/DL (74-106) 273 MG/DL (74-106) 152 MG/DL (74-106) Total Protein 4.5 GM/DL (6.4-8.2) 4.9 GM/DL (6.4-8.2) 5.3 GM/DL (6.4-8.2) Albumin 1.7 GM/DL (3.4-5.0) 1.7 GM/DL (3.4-5.0) 1.8 GM/DL (3.4-5.0) Calcium Level 7.3 MG/DL (8.5-10.1) 7.8 MG/DL (8.5-10.1) 8.0 MG/DL (8.5-10.1) Alkaline Phosphatase 218 U/L (45-117) 186 U/L (45-117) 221 U/L (45-117) Aspartate Amino Transf (AST/SGOT) 397 U/L (15-37) 226 U/L (15-37) 167 U/L (15-37) Alanine Aminotransferase (ALT/SGPT) 60 U/L (12-78) 46 U/L (12-78) 37 U/L (12-78) Total Bilirubin 0.4 MG/DL (0.2-1.0) 0.3 MG/DL (0.2-1.0) 0.3 MG/DL (0.2-1.0) Sodium Level 146 MEQ/L (136-145) 147 MEQ/L (136-145) 143 MEQ/L (136-145) Potassium Level 4.2 MEQ/L (3.5-5.1) 3.9 MEQ/L (3.5-5.1) 3.5 MEQ/L (3.5-5.1) Chloride Level 106 MEQ/L (98-107) 108 MEQ/L (98-107) 103 MEQ/L (98-107) Carbon Dioxide Level 25.1 MEQ/L (21.0-32.0) 25.1 MEQ/L (21.0-32.0) 27.9 MEQ/L (21.0-32.0) Anion Gap 15 MEQ/L (5-15) 14 MEQ/L (5-15) 12 MEQ/L (5-15) Estimat Glomerular Filtration Rate 9 ML/MIN (>89) 8 ML/MIN (>89) 11 ML/MIN (>89) Protein Corrected Calcium 8.8 MG/DL (8.5-10.1) Total Creatine Kinase 49231 U/L (39-308) 51084 U/L (39-308) 5694 U/L (39-308) Creatine Kinase MB 15.3 NG/ML (0.5-3.6) 9.2 NG/ML (0.5-3.6) 6.3 NG/ML (0.5-3.6) Creatine Kinase MB % 0.1 % (0.0-4.0) 0.1 % (0.0-4.0) 0.1 % (0.0-4.0) Metamyelocytes 3 % (0-1) Ammonia 33 MCMOL/L (11-32) Result Diagram: 04/29/17 0425 04/29/17 0425 Imaging Last Impressions Liver Ultrasound 04/24/17 0000 Signed Impressions: Service Date/Time: April 15:02 - CONCLUSION: 1. Mild hepatomegaly with increased hepatic echogenicity likely reflecting hepatic steatosis versus medical liver disease. 2. Cholelithiasis with mildly distended gallbladder and gallbladder wall thickening which may be chronic in etiology. Further evaluation may be performed with HIDA scan if there is significant clinical concern regarding acute cholecystitis. Dmitriy Kumar MD Chest X-Ray 04/24/17 0000 Signed Impressions: Service Date/Time: April 08:20 - CONCLUSION: Right internal jugular vas catheter and left internal jugular central line are in good positions with their tips at the junction of the superior vena cava and right atrium. No pneumothorax is noted. Red Toro MD Renal Ultrasound 04/22/17 0000 Signed Impressions: Service Date/Time: Saturday, April 22, 2017 21:27 - CONCLUSION: No obstructive uropathy or other acute abnormality. Incidentally seen benign-appearing left renal cyst. Ash Mason MD Head CT 04/21/17 0000 Signed Impressions: Service Date/Time: Friday, April 21, 2017 18:29 - CONCLUSION: Normal noncontrast head CT. Ash aMson MD Procedures 04/23 thrombectomy and right lower leg fasciotomy Central line placement 04/24-Vas-Cath placement [id number] amputation of right lower extremity 04/28-revision of above-knee amputation of right lower extremity, closure . Patient/Family Conference Family Conference Location: Bedside, Telephone Issues Discussed: * Palliative care role, purpose, approach * Additional medical, psychosocial, and spiritual history * Patients general health, functional status, and cognitive changes in the months leading up to the current hospitalization * Patient/family understanding of the current medical problems * Patient/family understanding of prognosis * Patients goals of care as best understood from advance directives and/or conversations and/or values * Current medical treatment options and benefits/burdens of those options * Likely scenarios comparing ongoing aggressive care with a transition to comfort measures only * Questions answered to the best of my ability * Palliative care contact information provided Assessment and Plan Disease Oriented Problem List: (1) Acute renal failure (2) CKD (chronic kidney disease) stage 3, GFR 30-59 ml/min (3) DKA (diabetic ketoacidoses) (4) Diabetes mellitus (5) Transaminitis (6) Compartment syndrome (7) Hypernatremia (8) Hyperammonemia Symptom Scale: (1) Pain 0-10 Scale: Unable to quantify Comment: Recent Right AKA. . (2) Debility 0-10 Scale: Unable to quantify (Recent Right AKA) Pertinent Non-Medical Issues Psychosocial:Patient is originally from [place]. He came [place]. He got and moved to [place] with his of +25 years. 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 Patient has 2 adult children, a daughter Junior and son Dajuan. Patient lives with his . 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 Important Contacts Spouse-Mariann Lozano-[phone] Son-Morris Graff . Prognosis Mr. Caceres is a 67 years old male with a past medical history significant for coronary artery disease s/p CABG and 2 stent placement, myocardial infarction, peripheral arterial disease, diabetes mellitus, hypertension and hyperlipidemia. Patient was brought in on 04/21/17 by EMS with complaints of decreased appetite, decreased thirst for approximately a week. Clinical course complicated with worsening renal function, delirium and nonsalvageable lower extremity ischemia requiring amputation of right lower extremity. Given ongoing comorbidities, patient remains at high risk for further complications, deterioration and decline. . Code Status: Full Code Plan PLAN: Legal decision maker: Patient is able to participate in medical decision making. Due to reported intermittent periods of delirium during this hospitalization, recommending medical decision making to be done in collaboration with patient`s spouse Mariann Lozano whom he also designated as his HCS or his son Morris Graff whom he designated as his alternate HCS. Goals: Aggressive CODE STATUS: Full Code- pending further discussion with patient`s . SYMPTOMS: * Pain: Recent right above knee amputation. Risk for phantom pain. Patient has Oxycodone 5mg -10mg q 4 hrs prn and Hydromorphone 0.2mg q 4 hrs prn. Sparingly needing prn medications. Patient currently denies pain. Continue assessing pain. Risk for phantom pain. * Debility: Patient recently had above the knee amputation to his right lower extremity and is currently on hemodialysis. Physical therapy consulted, recommended PT at Rehab. This may be a challenging time for patient given his other cormobids. No further recommendations. Palliative care will continue to follow the patient during hospital course as condition evolves, to assist patient/decision-maker with understanding of their medical conditions, weighing benefits/burdens of treatment options, for clarification of goals of treatment. Additionally will assist with any symptoms of palliative concern Thank you for the opportunity to participate in the care of Mr. Zuniga. Attestation To help prompt me to consider important information that might be impacting today's encounter and assessment, information from prior notes written by myself or my colleagues may have been "brought forward" into today's note. My signature on this note, however, is an attestation that I personally performed the exam, history, and/or decision-making noted today, and, unless otherwise indicated, the interactions with patient, family, and staff as well as the review of records all occurred today. I also attest that the listed assessment and stated plan reflect my best clinical judgment today based on the combination of historical information, prior notes, and today's exam/ interactions. When time spent is documented, it refers only to time spent today by the signer, or if indicated, combined time spent today by collaborating physician/nurse practitioner. Ruby Wilson Apr 29, 2017 12:10
--- NOTE | 2017-04-29 14:21 | PD.CAR.PN ---
CVT Progress Note Subjective/Hospital Course: 04/24/2017 Patient with total occlusion of the flow to her right leg underwent yesterday thromboembolectomy of the iliac and femoral systems and revascularization of the leg with fasciotomy Today while the patient has flow the leg from just above the knee down is purple and discolored It is insensate and patient has no motoric activity Muscles are discolored grayish appearing and devitalized At this point were essentially perfusing a devitalized extremity due to the length of time of occlusion of the blood flow Patient is now on dialysis consequently producing massive amounts of creatinine kinase with a massive breakdown of the muscle and of course resulting hyperkalemia and metabolic derangements I discussed this with his and this patient needs urgent above-knee amputation We will go ahead with surgery today considering that this is a nonviable extremity 04/25/2017 Patient underwent yesterday an urgent right above-knee guillotine staged amputation for worsening systemic acidemia/metabolic acidosis renal failure. He was found to have massive amount of muscle tissue which was clearly flushing out causing myoglobinuria and all the consequences of the same Patient now doing better systemically Wound VAC drainage is serosanguineous Once the swelling of the thigh goes down the bit possibly tomorrow will take patient back to the operating room to close the amputation site Patient's hemoglobin dropped to 6.9 this morning yet I was not informed about the despite the fact that have operated on this patient just few hours before Grateful for Dr. Moulton and his team for expert management Likely will take patient to the operating room tomorrow to close the stump 04/27/2017 Patient status post second stage above-knee amputation of the right leg with closure of the stump Area is clean KANCHAN drainage has decreased We will leave KANCHAN for another day and then remove it Patient doing systemically somewhat better Nothing to add to care at this time and hemoglobin remains stable 04/28/2017 Stump is clean and dry dressing is intact KANCHAN drainage about 130 cc in the last 24 hours We will likely DC KANCHAN tomorrow Patient may transfer to floor from my point 04/29/2017 Incision clean and dry DC KANCHAN Change dressings daily Stitches will stay in for about 3 weeks total in the face of delayed healing and ischemia Objective: Vital Signs Date Time Temp Pulse Resp B/P (MAP) Pulse Ox O2 Delivery O2 Flow Rate FiO2 04/29/17 12:00 97.9 90 18 153/69 (97) 98 04/29/17 08:00 98.4 89 18 151/68 (95) 96 04/29/17 04:00 98.6 86 14 157/70 (99) 04/29/17 04:00 98.6 86 14 157/70 (99) 99 04/29/17 00:00 98.7 85 23 133/60 (84) 98 04/28/17 23:00 21 04/28/17 20:00 98.8 103 20 119/56 (77) 98 04/28/17 16:35 98.9 96 20 140/66 (90) 97 04/28/17 16:00 107 04/28/17 16:00 98.0 107 20 136/63 (87) 100 Labs: Laboratory Tests Test 04/29/17 04:25 White Blood Count 13.2 TH/MM3 (4.0-11.0) Red Blood Count 2.40 MIL/MM3 (4.50-5.90) Hemoglobin 7.6 GM/DL (13.0-17.0) Hematocrit 22.5 % (39.0-51.0) Mean Corpuscular Volume 93.8 FL (80.0-100.0) Mean Corpuscular Hemoglobin 31.7 PG (27.0-34.0) Mean Corpuscular Hemoglobin Concent 33.8 % (32.0-36.0) Red Cell Distribution Width 14.7 % (11.6-17.2) Platelet Count 168 TH/MM3 (150-450) Mean Platelet Volume 9.2 FL (7.0-11.0) Neutrophils (%) (Auto) 74.6 % (16.0-70.0) Lymphocytes (%) (Auto) 13.5 % (9.0-44.0) Monocytes (%) (Auto) 9.3 % (0.0-8.0) Eosinophils (%) (Auto) 2.2 % (0.0-4.0) Basophils (%) (Auto) 0.4 % (0.0-2.0) Neutrophils # (Auto) 9.8 TH/MM3 (1.8-7.7) Lymphocytes # (Auto) 1.8 TH/MM3 (1.0-4.8) Monocytes # (Auto) 1.2 TH/MM3 (0-0.9) Eosinophils # (Auto) 0.3 TH/MM3 (0-0.4) Basophils # (Auto) 0.1 TH/MM3 (0-0.2) CBC Comment DIFF FINAL Differential Comment Blood Urea Nitrogen 41 MG/DL (7-18) Creatinine 5.31 MG/DL (0.60-1.30) Random Glucose 152 MG/DL (74-106) Total Protein 5.3 GM/DL (6.4-8.2) Albumin 1.8 GM/DL (3.4-5.0) Calcium Level 8.0 MG/DL (8.5-10.1) Alkaline Phosphatase 221 U/L (45-117) Aspartate Amino Transf (AST/SGOT) 167 U/L (15-37) Alanine Aminotransferase (ALT/SGPT) 37 U/L (12-78) Total Bilirubin 0.3 MG/DL (0.2-1.0) Sodium Level 143 MEQ/L (136-145) Potassium Level 3.5 MEQ/L (3.5-5.1) Chloride Level 103 MEQ/L (98-107) Carbon Dioxide Level 27.9 MEQ/L (21.0-32.0) Anion Gap 12 MEQ/L (5-15) Estimat Glomerular Filtration Rate 11 ML/MIN (>89) Total Creatine Kinase 5694 U/L (39-308) Creatine Kinase MB 6.3 NG/ML (0.5-3.6) Creatine Kinase MB % 0.1 % (0.0-4.0) Result Diagram: 04/29/17 0425 04/29/17 0425 Jean Pierre Auguste MD Apr 29, 2017 14:21
[2017-04-29 16:00] VITALS: BP 143/63; PULSE 73; RESP 20; TEMP 97.8; O2SAT 97
[2017-04-29] MEDS: LEVOFLOXACIN 500 MG PREMIX INJ 100 ML IV SCH (16:26)
[2017-04-29 20:00] VITALS: BP 160/70; PULSE 91; RESP 18; TEMP 98.7; O2SAT 98
[2017-04-30] VITALS: BP 143/67; PULSE 88; RESP 20; TEMP 98.1; O2SAT 98
[2017-04-30] MEDS: HEPARIN SODIUM - SQ 10,000 UNITS/ML VIAL SQ SCH ×2 (00:20→12:15)
[2017-04-30] MEDS: INSULIN ASPART SUPPLEMENTAL SCALE SQ SCH ×7 (00:21→21:00)
[2017-04-30 04:00] VITALS: BP 160/72; PULSE 89; RESP 18; TEMP 98.1; O2SAT 98
[2017-04-30 06:12] LABS: AUTOMATED NEUTROPHIL # 10.6 TH/MM3 (1.8-7.7); BASOPHIL % 0.4 % (0.0-2.0); EOSINOPHIL # 0.2 TH/MM3 (0-0.4); EOSINOPHIL % 1.2 % (0.0-4.0); HEMATOCRIT 21.8 % (39.0-51.0); HEMOGLOBIN 7.6 GM/DL (13.0-17.0); LYMPH % 8.7 % (9.0-44.0); LYMPHOCYTE # 1.1 TH/MM3 (1.0-4.8); MEAN CELL VOLUME 94.4 FL (80.0-100.0); MEAN CORPUSCULAR HEMOGLOBIN 32.7 PG (27.0-34.0); MEAN CORPUSCULAR HGB CONC 34.7 % (32.0-36.0); MEAN PLATELET VOLUME 8.5 FL (7.0-11.0); MONO % 7.1 % (0.0-8.0); MONOCYTE # 0.9 TH/MM3 (0-0.9); NEUT % 82.6 % (16.0-70.0); PLATELET COUNT 229 TH/MM3 (150-450); RED BLOOD COUNT 2.31 MIL/MM3 (4.50-5.90); WHITE BLOOD COUNT 12.8 TH/MM3 (4.0-11.0)
[2017-04-30 06:42] LABS: ALBUMIN 1.8 GM/DL (3.4-5.0); BICARBONATE 24.8 MEQ/L (21.0-32.0); BLOOD UREA NITROGEN 46 MG/DL (7-18); CALCIUM 7.8 MG/DL (8.5-10.1); CHLORIDE 104 MEQ/L (98-107); CREATININE 6.31 MG/DL (0.60-1.30); GLOMERULAR FILTRATION RATE 9 ML/MIN (>89); GLUCOSE,RANDOM 217 MG/DL (74-106); MAGNESIUM 2.1 MG/DL (1.5-2.5); SODIUM (NA) 142 MEQ/L (136-145)
[2017-04-30 06:43] LABS: ALT (GPT) 33 U/L (12-78); AST (GOT) 108 U/L (15-37); PHOSPHORUS 5.3 MG/DL (2.5-4.9)
[2017-04-30 06:57] LABS: ALKALINE PHOSPHATASE 146 U/L (45-117); TOTAL BILIRUBIN ADULT 0.5 MG/DL (0.2-1.0); TOTAL PROTEIN 5.4 GM/DL (6.4-8.2)
[2017-04-30 08:00] VITALS: BP 161/74; PULSE 82; RESP 16; TEMP 98; O2SAT 96
[2017-04-30 08:24] LABS: BANDS 1 % (0-6); BASOPHILS 1 % (0-2); LYMPHOCYTES 5 % (9-44); MONOCYTES 5 % (0-8); MYELOCYTES 1 % (0-0); NEUTROPHIL # MANUAL DIFF 11.4 TH/MM3 (1.8-7.7); POLYS (SEG NEUTROPHILS) 87 % (16-70)
[2017-04-30] MEDS: RIFAXIMIN 550 MG TAB PO SCH ×2 (08:26→23:33)
[2017-04-30] MEDS: SODIUM CHLORIDE 0.9% FLUSH 10 ML FLUSH IV FLUSH SCH ×2 (08:27→23:34)
[2017-04-30] MEDS: FAMOTIDINE 20 MG/2 ML VIAL IV PUSH SCH ×2 (08:27→23:34)
[2017-04-30] MEDS: GENTAMICIN SULFATE 20 MG/2 ML VIAL OTHER PRN (09:05)
[2017-04-30] MEDS: HEPARIN SODIUM - IV 10,000 UNITS/10 ML VIAL PRN (09:05)
[2017-04-30] MEDS: EPOETIN ALFA 10,000 UNITS/ML VIAL IV PUSH PRN (09:05)
--- NOTE | 2017-04-30 09:59 | HHI.HCPN ---
Reason for visit a. To assist with evaluation and management of symptoms including:Pain, debility b. To assist medical decision maker(s) with: better understanding of current medical conditions; weighing benefits/burdens of medical treatment options; making medical treatment decisions. Subjective/Interval History Mr. Caceres is a 67 years old male with a past medical history significant for coronary artery disease s/p CABG and 2 coronary stent placement , myocardial infarction, peripheral arterial disease, diabetes mellitus, hypertension and hyperlipidemia. Patient was brought to the ER on 04/21/17 by EMS after his found patient down when she arrived back from work at 1300hrs and he had slurred speech. Patient`s had last seen patient normal around 7a.m in the morning before leaving for work. Patient had had decreased appetite, increased thirst for approximately a week prior to ER visit. He was partially oriented with some confusion when he arrived in the ER. ER course: * Vital signs: Temperature 99.1, pulse 98, respirations 22, BP 156/73, O2 saturation 97% on room air. * EKG revealed sinus rhythm with enlargement of left atrial and left ventricular hypertrophy. * Chest x-ray revealed no acute disease * Head CT was normal. * Laboratory workup revealed WBC 6.3, hemoglobin 15.7, hematocrit 51.5, platelet count 205, sodium 153, potassium 3.8, BUN/creatinine 109/3.46, random glucose 992, AST 12, ALT 16, BNP 41, total protein 6.3, albumin 2.9, CK-MB 4.8. Troponin 0.04.Beta hydroxybutyrate 11.9. * ABG revealed pH of 7.194, bicarbonate 12.5, PCO2 33.9 * Blood sugar 992, 7 units insulin bolus administered and started on insulin infusion and 10mg IVP hydralazine administered. * Patient received 2 L normal saline bolus * Montalvo catheter inserted * UA done culture positive for Klebsiella pneumonia group B beta strep. * Patient was admitted under the medicine service under Dr. Livan Mckeon. Nephrology Dr. Suarez consulted on 04/22/17 for evaluation and management of acute and chronic kidney disease. Renal ultrasound on 04/22 revealed benign appearing left renal cyst and no obstructive uropathy. On 04/22, patient was noted to have right leg in a contracture position with decreased range of motion. On 04/23 right leg was cold to touch. Interventional radiology Dr. Porter consulted for evaluation of cold pulseless right leg. Ultrasound revealed complete thrombosis of the external iliac circulation, the common femoral, profunda femoral, superficial femoral and popliteal arteries and no flow was identified within the runoff vessels below the level of the knee. Per interventional radiology, patient was found not to be a candidate for thrombolysis due to the extensive amount of thrombus, severe ischemic changes in loss of motor function. IR recommended open thrombectomy. Dr. Auguste consulted on 04/22 for evaluation of pain in the right leg. On 04/23 patient underwent thrombectomy and right lower leg fasciotomy and was transferred to ICU post surgery. GI Dr. Hernandez consulted for evaluation and management of elevated transaminases. Critical care management physician Dr. Boss consulted for management of post surgical patient. On 04/24 right lower extremity was noted to be purplish in color. Clinical course complicated with worsening renal function, delirium and non-salvageable lower extremity ischemia requiring amputation of right lower extremity. On 04/25/17, patient underwent emergent above-knee amputation of right leg due to worsening systemic acidemia/metabolic acidosis renal failure. Patient was in severe rhabdomyolysis. On 04/24, Vas- Cath was placed and patient was started on emergent hemodialysis. Palliative care consulted to assist with establishing goals of care. Patient seen and examined in his room. He is sitting up in bed, alert and oriented to self, place and situation with some confusion to time. Patient is from [place] but is able to converse in [place]. Obtained psychosocial. Patient was able to provide most of his medical history though he appears to lack insight regarding his medical condition. Addressed code status, discussed risks and limitations of CPR. He elected full code. Further explained what that entails and patient stated that his will decide what to do. Patient has never completed advance directives. Patient stated that in the event that he is incapacitated to make his own medical decisions he would want his Mariann to be his health care surrogate (HCS)and his son Dajuan to be his alternate HCS. Encouraged patient to further discuss his wishes with his . Assisted patient with completing HCS form. Brief telephone conversation with patient`s Mariann, updated her on patient`s current status. Confirmed psychosocial and past medical history. Patient`s stated that patient may not have completed advance directives but they have discussed code status in the past and patient had indicated that he would never want to be resuscitated or be intubated and placed on mechanical ventilation. Patient`s would like to further discuss this issue with her . Meeting with palliative care scheduled for 04/30/17. . Advance Directives Living Will: Never completed Health Care Surrogate: Copy in medical record Durable Power of Trial Management Associate: Never completed Advance Directive Specifics Date completed: 04/29/2017 . Health Care Surrogate(s): [facility]-Spouse- Mariann Lozano-[phone] Alternate [facility]- Morris Graff . Objective Vital Signs Date Time Temp Pulse Resp B/P (MAP) Pulse Ox O2 Delivery O2 Flow Rate FiO2 04/30/17 08:00 98.0 82 16 161/74 (103) 96 04/30/17 04:00 98.1 89 18 160/72 (101) 98 04/30/17 00:00 98.1 88 20 143/67 (92) 98 04/29/17 20:00 98.7 91 18 160/70 (100) 98 04/29/17 16:00 97.8 73 20 143/63 (89) 97 04/29/17 12:00 97.9 90 18 153/69 (97) 98 Physical Exam CONSTITUTIONAL/GENERAL: This is an adequately nourished patient, in no apparent distress. TUBES/LINES/DRAINS: Vas Cath, Central line, KANCHAN drain to R-stump SKIN: No jaundice, rashes, or lesions. Ecchymoses on upper extremities.Surgical incision to R-AKA. Skin temperature appropriate. Not diaphoretic. HEAD: Atraumatic. Normocephalic. EYES: Pupils equal and round and reactive. Extraocular motions intact. No scleral icterus. No injection or drainage. Fundi not examined. ENT: Hearing grossly normal. Nose without bleeding or purulent drainage. NECK: Trachea midline. Supple, nontender. CARDIOVASCULAR: Regular rate and rhythm without murmurs, gallops, or rubs. No JVD. Weak pulse to LLE RESPIRATORY/CHEST: Symmetric, unlabored respirations. Clear to auscultation. Breath sounds equal bilaterally. No wheezes, rales, or rhonchi. GASTROINTESTINAL: Abdomen soft, non-tender, nondistended. No guarding. Bowel sounds present. GENITOURINARY: Without palpable bladder distension. MUSCULOSKELETAL: Extremities without clubbing, cyanosis, or edema. No joint tenderness or effusion noted. No calf tenderness. No mottling or clubbing. NEUROLOGICAL: Awake and alert X3 Motor and sensory grossly within normal limits. Follows commands. Moves all extremities. PSYCHIATRIC: No obvious anxiety/depression. no apparent hallucinations or other psychotic thought process. Diagnostic Tests Laboratory Laboratory Tests Test 04/28/17 04:30 04/29/17 04:25 04/30/17 05:50 04/30/17 06:25 White Blood Count 9.7 TH/MM3 (4.0-11.0) 13.2 TH/MM3 (4.0-11.0) 12.8 TH/MM3 (4.0-11.0) Red Blood Count 2.34 MIL/MM3 (4.50-5.90) 2.40 MIL/MM3 (4.50-5.90) 2.31 MIL/MM3 (4.50-5.90) Hemoglobin 7.5 GM/DL (13.0-17.0) 7.6 GM/DL (13.0-17.0) 7.6 GM/DL (13.0-17.0) Hematocrit 21.8 % (39.0-51.0) 22.5 % (39.0-51.0) 21.8 % (39.0-51.0) Mean Corpuscular Volume 93.1 FL (80.0-100.0) 93.8 FL (80.0-100.0) 94.4 FL (80.0-100.0) Mean Corpuscular Hemoglobin 32.3 PG (27.0-34.0) 31.7 PG (27.0-34.0) 32.7 PG (27.0-34.0) Mean Corpuscular Hemoglobin Concent 34.7 % (32.0-36.0) 33.8 % (32.0-36.0) 34.7 % (32.0-36.0) Red Cell Distribution Width 14.9 % (11.6-17.2) 14.7 % (11.6-17.2) 15.0 % (11.6-17.2) Platelet Count 186 TH/MM3 (150-450) 168 TH/MM3 (150-450) 229 TH/MM3 (150-450) Mean Platelet Volume 9.0 FL (7.0-11.0) 9.2 FL (7.0-11.0) 8.5 FL (7.0-11.0) Neutrophils (%) (Auto) 76.7 % (16.0-70.0) 74.6 % (16.0-70.0) 82.6 % (16.0-70.0) Lymphocytes (%) (Auto) 10.6 % (9.0-44.0) 13.5 % (9.0-44.0) 8.7 % (9.0-44.0) Monocytes (%) (Auto) 10.5 % (0.0-8.0) 9.3 % (0.0-8.0) 7.1 % (0.0-8.0) Eosinophils (%) (Auto) 2.0 % (0.0-4.0) 2.2 % (0.0-4.0) 1.2 % (0.0-4.0) Basophils (%) (Auto) 0.2 % (0.0-2.0) 0.4 % (0.0-2.0) 0.4 % (0.0-2.0) Neutrophils # (Auto) 7.4 TH/MM3 (1.8-7.7) 9.8 TH/MM3 (1.8-7.7) 10.6 TH/MM3 (1.8-7.7) Lymphocytes # (Auto) 1.0 TH/MM3 (1.0-4.8) 1.8 TH/MM3 (1.0-4.8) 1.1 TH/MM3 (1.0-4.8) Monocytes # (Auto) 1.0 TH/MM3 (0-0.9) 1.2 TH/MM3 (0-0.9) 0.9 TH/MM3 (0-0.9) Eosinophils # (Auto) 0.2 TH/MM3 (0-0.4) 0.3 TH/MM3 (0-0.4) 0.2 TH/MM3 (0-0.4) Basophils # (Auto) 0.0 TH/MM3 (0-0.2) 0.1 TH/MM3 (0-0.2) 0.0 TH/MM3 (0-0.2) CBC Comment AUTO DIFF DIFF FINAL AUTO DIFF Differential Total Cells Counted 100 100 Neutrophils % (Manual) 81 % (16-70) 87 % (16-70) Band Neutrophils % 4 % (0-6) 1 % (0-6) Lymphocytes % 4 % (9-44) 5 % (9-44) Monocytes % 7 % (0-8) 5 % (0-8) Eosinophils % 1 % (0-4) Neutrophils # (Manual) 8.5 TH/MM3 (1.8-7.7) 11.4 TH/MM3 (1.8-7.7) Metamyelocytes 3 % (0-1) Nucleated Red Blood Cells 1 /100 WBC (0-0) Differential Comment FINAL DIFF MANUAL FINAL DIFF MANUAL Platelet Estimate NORMAL (NORMAL) NORMAL (NORMAL) Platelet Morphology Comment NORMAL (NORMAL) NORMAL (NORMAL) Blood Urea Nitrogen 68 MG/DL (7-18) 41 MG/DL (7-18) 46 MG/DL (7-18) Creatinine 7.26 MG/DL (0.60-1.30) 5.31 MG/DL (0.60-1.30) 6.31 MG/DL (0.60-1.30) Random Glucose 273 MG/DL (74-106) 152 MG/DL (74-106) 217 MG/DL (74-106) Total Protein 4.9 GM/DL (6.4-8.2) 5.3 GM/DL (6.4-8.2) 5.4 GM/DL (6.4-8.2) Albumin 1.7 GM/DL (3.4-5.0) 1.8 GM/DL (3.4-5.0) 1.8 GM/DL (3.4-5.0) Calcium Level 7.8 MG/DL (8.5-10.1) 8.0 MG/DL (8.5-10.1) 7.8 MG/DL (8.5-10.1) Alkaline Phosphatase 186 U/L (45-117) 221 U/L (45-117) 146 U/L (45-117) Aspartate Amino Transf (AST/SGOT) 226 U/L (15-37) 167 U/L (15-37) 108 U/L (15-37) Alanine Aminotransferase (ALT/SGPT) 46 U/L (12-78) 37 U/L (12-78) 33 U/L (12-78) Total Bilirubin 0.3 MG/DL (0.2-1.0) 0.3 MG/DL (0.2-1.0) 0.5 MG/DL (0.2-1.0) Sodium Level 147 MEQ/L (136-145) 143 MEQ/L (136-145) 142 MEQ/L (136-145) Potassium Level 3.9 MEQ/L (3.5-5.1) 3.5 MEQ/L (3.5-5.1) 4.3 MEQ/L (3.5-5.1) Chloride Level 108 MEQ/L (98-107) 103 MEQ/L (98-107) 104 MEQ/L (98-107) Carbon Dioxide Level 25.1 MEQ/L (21.0-32.0) 27.9 MEQ/L (21.0-32.0) 24.8 MEQ/L (21.0-32.0) Anion Gap 14 MEQ/L (5-15) 12 MEQ/L (5-15) 13 MEQ/L (5-15) Estimat Glomerular Filtration Rate 8 ML/MIN (>89) 11 ML/MIN (>89) 9 ML/MIN (>89) Ammonia 33 MCMOL/L (11-32) LESS THAN 10 MCMOL/L Total Creatine Kinase 66376 U/L (39-308) 5694 U/L (39-308) 2990 U/L (39-308) Creatine Kinase MB 9.2 NG/ML (0.5-3.6) 6.3 NG/ML (0.5-3.6) 3.5 NG/ML (0.5-3.6) Creatine Kinase MB % 0.1 % (0.0-4.0) 0.1 % (0.0-4.0) 0.1 % (0.0-4.0) Basophils % 1 % (0-2) Myelocytes 1 % (0-0) Red Cell Morphology Comment NORMAL (NORMAL) Phosphorus Level 5.3 MG/DL (2.5-4.9) Magnesium Level 2.1 MG/DL (1.5-2.5) Result Diagram: 04/30/17 0550 04/30/17 0550 Procedures 04/23 thrombectomy and right lower leg fasciotomy Central line placement 04/24-Vas-Cath placement [id number]/[id number] amputation of right lower extremity 04/28-revision of above-knee amputation of right lower extremity, closure . Assessment and Plan Disease Oriented Problem List: (1) Acute renal failure (2) CKD (chronic kidney disease) stage 3, GFR 30-59 ml/min (3) DKA (diabetic ketoacidoses) (4) Diabetes mellitus (5) Transaminitis (6) Compartment syndrome (7) Hypernatremia (8) Hyperammonemia Symptom Scale: (1) Pain 0-10 Scale: Unable to quantify Comment: Recent Right AKA. . (2) Debility 0-10 Scale: Unable to quantify (Recent Right AKA) Pertinent Non-Medical Issues Psychosocial:Patient is originally from [place] [facility]. He came to [facility] in [place]. He got and moved to [place] with his of +25 years. 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 Patient has 2 adult children, a daughter Junior and son Dajuan. Patient lives with his . Spiritual: Patient is Caodaism Legal:Completed and signed [facility] Ethical issues impacting care: None identified at this time . Important Contacts Spouse-Mariann Lozano-[phone] Son-Morris Graff . Prognosis Mr. Caceres is a 67 years old male with a past medical history significant for coronary artery disease s/p CABG and 2 stent placement, myocardial infarction, peripheral arterial disease, diabetes mellitus, hypertension and hyperlipidemia. Patient was brought in on 04/21/17 by EMS with complaints of decreased appetite, decreased thirst for approximately a week. Clinical course complicated with worsening renal function, delirium and nonsalvageable lower extremity ischemia requiring amputation of right lower extremity. Given ongoing comorbidities, patient remains at high risk for further complications, deterioration and decline. . Code Status: Full Code Plan PLAN: Legal decision maker: Patient is able to participate in medical decision making. Due to reported intermittent periods of delirium during this hospitalization, recommending medical decision making to be done in collaboration with patient`s spouse Mariann Lozano whom he also designated as his HCS or his son Morris Graff whom he designated as his alternate HCS. Goals: Aggressive CODE STATUS: Full Code- pending further discussion with patient`s . SYMPTOMS: * Pain: Recent right above knee amputation. Risk for phantom pain. Patient has Oxycodone 5mg -10mg q 4 hrs prn and Hydromorphone 0.2mg q 4 hrs prn. Sparingly needing prn medications. Patient currently denies pain. Continue assessing pain. Risk for phantom pain. * Debility: Patient recently had above the knee amputation to his right lower extremity and is currently on hemodialysis. Physical therapy consulted, recommended PT at Rehab. This may be a challenging time for patient given his other cormobids. No further recommendations. Palliative care will continue to follow the patient during hospital course as condition evolves, to assist patient/decision-maker with understanding of their medical conditions, weighing benefits/burdens of treatment options, for clarification of goals of treatment. Additionally will assist with any symptoms of palliative concern Marily Lopez Apr 30, 2017 9:59 am
--- NOTE | 2017-04-30 11:16 | HHI.NPPN ---
Subjective History of Present Illness 67 year old with Hypertension,DKA, DM, ARF Additional Remarks No acute complaints Objective Data Data Vital Signs Date Time Temp Pulse Resp B/P (MAP) Pulse Ox O2 Delivery O2 Flow Rate FiO2 04/30/17 08:00 98.0 82 16 161/74 (103) 96 04/30/17 04:00 98.1 89 18 160/72 (101) 98 04/30/17 00:00 98.1 88 20 143/67 (92) 98 04/29/17 20:00 98.7 91 18 160/70 (100) 98 04/29/17 16:00 97.8 73 20 143/63 (89) 97 04/29/17 12:00 97.9 90 18 153/69 (97) 98 -: 04/30/17 0550 04/30/17 0550 Physical Exam General Appearance: Well Developed, Well Nourished Neck Neck Exam: Neck Supple Pulmonary Resp Exam: Clear Bilaterally, Breath Sounds Equal Cardiology CV Exam: Regular, Normal Sinus Rhythm Gastrointestinal/Abdomen GI Exam: Soft, Non-Tender, Bowel Sounds Present Extremeties Extremities Exam: Moderate Edema Extremeties Remarks Rt AKA Neurologic Neuro Exam: Alert Assessment/Plan Problem List: (1) Acute renal failure ICD Codes: N17.9 - Acute kidney failure, unspecified Plan: Patient has chronic kidney disease and acute renal failure with rhabdomyolysis creatinine 4.53 -> 5.9 -> 7.2 -> 5.3 -> 6.3 UOP MODERATE Remains HD dependent. CPK declined On HD MWF - HD Progress noted poor blood flow need PermCath Right lower leg ischemia now status post right AKA On Epogen for anemia - transfuse as needed. (2) CKD (chronic kidney disease) stage 3, GFR 30-59 ml/min ICD Codes: N18.3 - Chronic kidney disease, stage 3 (moderate) Plan: kidney ultrasound left renal cyst (3) Diabetes ICD Codes: E11.9 - Type 2 diabetes mellitus without complications Plan: History of DKA continue to monitor (4) Hypertension ICD Codes: I10 - Hypertension Status: Acute Plan: BP stable (5) DKA (diabetic ketoacidoses) ICD Codes: E13.10 - Other specified diabetes mellitus with ketoacidosis without coma Status: Acute Plan: Resolved (6) Hypernatremia ICD Codes: E87.0 - Hyperosmolality and hypernatremia Plan: stable Natacha Suarez MD Apr 30, 2017 11:16
--- NOTE | 2017-04-30 12:34 | HHI.HCPN ---
Reason for visit a. To assist with evaluation and management of symptoms including:Pain, debility b. To assist medical decision maker(s) with: better understanding of current medical conditions; weighing benefits/burdens of medical treatment options; making medical treatment decisions. (Marily Lopez) Subjective/Interval History Patient seen to follow-up on goals of care and symptom management. This is a 67-year-old Sha male that presented with elevated blood sugar of 992, found to have right cold leg, underwent open attempt thrombectomy and subsequently right AKA. He remains mildly confused, oriented to self and place. At this time not able to truly grasp or have adequate insight to his medical situation. His is at bedside and participates in the conversation. * Vital signs: Blood pressure 161/74, heart rate 82, respiratory rate 16, oxygen saturation 96% on 2 L nasal cannula, afebrile. * Laboratory: WBC 12.8, hemoglobin 7.6, hematocrit 21.8, platelets 229, sodium 142, potassium 4.3, BUN 46, creatinine 6.31, random glucose 217, calcium 7.8, total creatinine kinase 2990 (5694). Hemoglobin A1c on admission 17.7. This is a pleasant male lying in bed undergoing hemodialysis. He does complain of pain in the right AKA stump but is otherwise asymptomatic. We discussed possible discharge options which he stated he had not considered previous. He had not considered how he would manage at home, demonstrating his lack of insight. Physical therapy evaluation was reviewed also indicating patient's confusion and impaired sitting and standing balance. He remains a moderate to maximum assistance 2 for standing at bedside. Short-term rehabilitation is being recommended to attempt to progress to the ability to stand and pivot. Discussed with case consultant who will have Jeff evaluate. . Family/friend interactions Family meeting was requested by to discuss goals of care. Reviewed resuscitation risks and benefits with patient and . Patient remains somewhat confused and has difficulty grasping the full import of the discussion. At this time he states he wishes to consider the ramifications of both decisions, discussed with his and family prior to coming to a decision. He had previously told his in earlier years that he would not want resuscitation under any circumstances. 5 wishes brochure was provided to facilitate family discussion. We will follow-up tomorrow for further questions and discussion. Contact information was provided. . (Marily Lopez) Advance Directives Living Will: Never completed Health Care Surrogate: Copy in medical record Durable Power of Music Engineer: Never completed (Marily Lopez) Advance Directive Specifics Date completed: 04/29/2017 . Health Care Surrogate(s): [facility]-Spouse- Mariann Lozano-[phone] Alternate [facility]- Morris Graff . (Marily Lopez) Objective Vital Signs Date Time Temp Pulse Resp B/P (MAP) Pulse Ox O2 Delivery O2 Flow Rate FiO2 04/30/17 08:00 98.0 82 16 161/74 (103) 96 04/30/17 04:00 98.1 89 18 160/72 (101) 98 04/30/17 00:00 98.1 88 20 143/67 (92) 98 04/29/17 20:00 98.7 91 18 160/70 (100) 98 04/29/17 16:00 97.8 73 20 143/63 (89) 97 Intake & Output 04/30/17 04/30/17 07:00 19:00 Output Total 1000 ml Balance -1000 ml Hemodialysis 1000 ml Physical Exam CONSTITUTIONAL/GENERAL: This is an adequately nourished patient, in no apparent distress. TUBES/LINES/DRAINS: Vas Cath, Central line, KANCHAN drain to R-stump SKIN: No jaundice, rashes, or lesions. Ecchymoses on upper extremities.Surgical incision to R-AKA. Skin temperature appropriate. Not diaphoretic. HEAD: Atraumatic. Normocephalic. EYES: Pupils equal and round and reactive. Extraocular motions intact. No scleral icterus. No injection or drainage. Fundi not examined. ENT: Hearing grossly normal. Nose without bleeding or purulent drainage. NECK: Trachea midline. Supple, nontender. CARDIOVASCULAR: Regular rate and rhythm without murmurs, gallops, or rubs. No JVD. Weak pulse to LLE RESPIRATORY/CHEST: Symmetric, unlabored respirations. Clear to auscultation. Breath sounds equal bilaterally. No wheezes, rales, or rhonchi. GASTROINTESTINAL: Abdomen soft, non-tender, nondistended. No guarding. Bowel sounds present. GENITOURINARY: Without palpable bladder distension. MUSCULOSKELETAL: Extremities without clubbing, cyanosis, or edema. No joint tenderness or effusion noted. No calf tenderness. No mottling or clubbing. NEUROLOGICAL: Awake and alert, oriented to self and place, motor and sensory grossly within normal limits. Follows commands. Moves all extremities. PSYCHIATRIC: No obvious anxiety/depression. no apparent hallucinations or other psychotic thought process. (Marily Lopez) Diagnostic Tests Laboratory Laboratory Tests Test 04/28/17 04:30 04/29/17 04:25 04/30/17 05:50 04/30/17 06:25 White Blood Count 9.7 TH/MM3 (4.0-11.0) 13.2 TH/MM3 (4.0-11.0) 12.8 TH/MM3 (4.0-11.0) Red Blood Count 2.34 MIL/MM3 (4.50-5.90) 2.40 MIL/MM3 (4.50-5.90) 2.31 MIL/MM3 (4.50-5.90) Hemoglobin 7.5 GM/DL (13.0-17.0) 7.6 GM/DL (13.0-17.0) 7.6 GM/DL (13.0-17.0) Hematocrit 21.8 % (39.0-51.0) 22.5 % (39.0-51.0) 21.8 % (39.0-51.0) Mean Corpuscular Volume 93.1 FL (80.0-100.0) 93.8 FL (80.0-100.0) 94.4 FL (80.0-100.0) Mean Corpuscular Hemoglobin 32.3 PG (27.0-34.0) 31.7 PG (27.0-34.0) 32.7 PG (27.0-34.0) Mean Corpuscular Hemoglobin Concent 34.7 % (32.0-36.0) 33.8 % (32.0-36.0) 34.7 % (32.0-36.0) Red Cell Distribution Width 14.9 % (11.6-17.2) 14.7 % (11.6-17.2) 15.0 % (11.6-17.2) Platelet Count 186 TH/MM3 (150-450) 168 TH/MM3 (150-450) 229 TH/MM3 (150-450) Mean Platelet Volume 9.0 FL (7.0-11.0) 9.2 FL (7.0-11.0) 8.5 FL (7.0-11.0) Neutrophils (%) (Auto) 76.7 % (16.0-70.0) 74.6 % (16.0-70.0) 82.6 % (16.0-70.0) Lymphocytes (%) (Auto) 10.6 % (9.0-44.0) 13.5 % (9.0-44.0) 8.7 % (9.0-44.0) Monocytes (%) (Auto) 10.5 % (0.0-8.0) 9.3 % (0.0-8.0) 7.1 % (0.0-8.0) Eosinophils (%) (Auto) 2.0 % (0.0-4.0) 2.2 % (0.0-4.0) 1.2 % (0.0-4.0) Basophils (%) (Auto) 0.2 % (0.0-2.0) 0.4 % (0.0-2.0) 0.4 % (0.0-2.0) Neutrophils # (Auto) 7.4 TH/MM3 (1.8-7.7) 9.8 TH/MM3 (1.8-7.7) 10.6 TH/MM3 (1.8-7.7) Lymphocytes # (Auto) 1.0 TH/MM3 (1.0-4.8) 1.8 TH/MM3 (1.0-4.8) 1.1 TH/MM3 (1.0-4.8) Monocytes # (Auto) 1.0 TH/MM3 (0-0.9) 1.2 TH/MM3 (0-0.9) 0.9 TH/MM3 (0-0.9) Eosinophils # (Auto) 0.2 TH/MM3 (0-0.4) 0.3 TH/MM3 (0-0.4) 0.2 TH/MM3 (0-0.4) Basophils # (Auto) 0.0 TH/MM3 (0-0.2) 0.1 TH/MM3 (0-0.2) 0.0 TH/MM3 (0-0.2) CBC Comment AUTO DIFF DIFF FINAL AUTO DIFF Differential Total Cells Counted 100 100 Neutrophils % (Manual) 81 % (16-70) 87 % (16-70) Band Neutrophils % 4 % (0-6) 1 % (0-6) Lymphocytes % 4 % (9-44) 5 % (9-44) Monocytes % 7 % (0-8) 5 % (0-8) Eosinophils % 1 % (0-4) Neutrophils # (Manual) 8.5 TH/MM3 (1.8-7.7) 11.4 TH/MM3 (1.8-7.7) Metamyelocytes 3 % (0-1) Nucleated Red Blood Cells 1 /100 WBC (0-0) Differential Comment FINAL DIFF MANUAL FINAL DIFF MANUAL Platelet Estimate NORMAL (NORMAL) NORMAL (NORMAL) Platelet Morphology Comment NORMAL (NORMAL) NORMAL (NORMAL) Blood Urea Nitrogen 68 MG/DL (7-18) 41 MG/DL (7-18) 46 MG/DL (7-18) Creatinine 7.26 MG/DL (0.60-1.30) 5.31 MG/DL (0.60-1.30) 6.31 MG/DL (0.60-1.30) Random Glucose 273 MG/DL (74-106) 152 MG/DL (74-106) 217 MG/DL (74-106) Total Protein 4.9 GM/DL (6.4-8.2) 5.3 GM/DL (6.4-8.2) 5.4 GM/DL (6.4-8.2) Albumin 1.7 GM/DL (3.4-5.0) 1.8 GM/DL (3.4-5.0) 1.8 GM/DL (3.4-5.0) Calcium Level 7.8 MG/DL (8.5-10.1) 8.0 MG/DL (8.5-10.1) 7.8 MG/DL (8.5-10.1) Alkaline Phosphatase 186 U/L (45-117) 221 U/L (45-117) 146 U/L (45-117) Aspartate Amino Transf (AST/SGOT) 226 U/L (15-37) 167 U/L (15-37) 108 U/L (15-37) Alanine Aminotransferase (ALT/SGPT) 46 U/L (12-78) 37 U/L (12-78) 33 U/L (12-78) Total Bilirubin 0.3 MG/DL (0.2-1.0) 0.3 MG/DL (0.2-1.0) 0.5 MG/DL (0.2-1.0) Sodium Level 147 MEQ/L (136-145) 143 MEQ/L (136-145) 142 MEQ/L (136-145) Potassium Level 3.9 MEQ/L (3.5-5.1) 3.5 MEQ/L (3.5-5.1) 4.3 MEQ/L (3.5-5.1) Chloride Level 108 MEQ/L (98-107) 103 MEQ/L (98-107) 104 MEQ/L (98-107) Carbon Dioxide Level 25.1 MEQ/L (21.0-32.0) 27.9 MEQ/L (21.0-32.0) 24.8 MEQ/L (21.0-32.0) Anion Gap 14 MEQ/L (5-15) 12 MEQ/L (5-15) 13 MEQ/L (5-15) Estimat Glomerular Filtration Rate 8 ML/MIN (>89) 11 ML/MIN (>89) 9 ML/MIN (>89) Ammonia 33 MCMOL/L (11-32) LESS THAN 10 MCMOL/L Total Creatine Kinase 56096 U/L (39-308) 5694 U/L (39-308) 2990 U/L (39-308) Creatine Kinase MB 9.2 NG/ML (0.5-3.6) 6.3 NG/ML (0.5-3.6) 3.5 NG/ML (0.5-3.6) Creatine Kinase MB % 0.1 % (0.0-4.0) 0.1 % (0.0-4.0) 0.1 % (0.0-4.0) Basophils % 1 % (0-2) Myelocytes 1 % (0-0) Red Cell Morphology Comment NORMAL (NORMAL) Phosphorus Level 5.3 MG/DL (2.5-4.9) Magnesium Level 2.1 MG/DL (1.5-2.5) (Marily Lopez) Result Diagram: 04/30/17 0550 04/30/17 0550 Procedures 04/23 thrombectomy and right lower leg fasciotomy Central line placement 04/24-Vas-Cath placement 04/2515-[id number] amputation of right lower extremity 04/28-revision of above-knee amputation of right lower extremity, closure . (Marily Lopez) Assessment and Plan Disease Oriented Problem List: (1) Acute renal failure (2) CKD (chronic kidney disease) stage 3, GFR 30-59 ml/min (3) DKA (diabetic ketoacidoses) (4) Diabetes mellitus (5) Transaminitis (6) Compartment syndrome (7) Hypernatremia (8) Hyperammonemia Symptom Scale: (1) Pain 0-10 Scale: Unable to quantify Comment: Recent Right AKA. . (2) Debility 0-10 Scale: Unable to quantify (Recent Right AKA) Pertinent Non-Medical Issues Psychosocial:Patient is originally from [facility]. He came to [place]. He got and moved to [place] with his of +25 years. 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 Patient has 2 adult children, a daughter Junior and son Dajuan. Patient lives with his . Spiritual: Patient is [employer] Legal:Completed and signed HCS Ethical issues impacting care: None identified at this time . Important Contacts Spouse-Mariann Lozano-[phone] Son-Morris Graff . Prognosis Mr. Loyola is a 67 years old male with a past medical history significant for coronary artery disease s/p CABG and 2 stent placement, myocardial infarction, peripheral arterial disease, diabetes mellitus, hypertension and hyperlipidemia. Patient was brought in on 04/21/17 by EMS with complaints of decreased appetite, decreased thirst for approximately a week. Clinical course complicated with worsening renal function, delirium and nonsalvageable lower extremity ischemia requiring amputation of right lower extremity. Given ongoing comorbidities, patient remains at high risk for further complications, deterioration and decline. . Code Status: Full Code Plan PLAN: Legal decision maker: Patient is able to participate in medical decision making. Due to reported intermittent periods of delirium during this hospitalization, recommending medical decision making to be done in collaboration with patient`s spouse Mariann Lozano whom he also designated as his HCS or his son Nir Graff whom he designated as his alternate HCS. Goals: Aggressive CODE STATUS: Full Code- pending family decision SYMPTOMS: * Pain: Recent right above knee amputation. Risk for phantom pain. Patient has Oxycodone 5mg -10mg q 4 hrs prn and Hydromorphone 0.2mg q 4 hrs prn. Sparingly needing prn medications. Patient states right leg causes pain when left in one position too long or when being removed. Reviewed asking for pain medicine before pain became uncontrolled. Continue assessing pain. Risk for phantom pain. * Debility: Patient recently had above the knee amputation to his right lower extremity and is currently on hemodialysis. Physical therapy consulted, recommended PT and OT at [facility]. This may be a challenging time for patient given his other comorbidities and confusion. states she would like to take him home but is willing for short-term rehabilitation as recommended by PT. Would recommend an OT evaluation. Palliative care will continue to follow the patient during hospital course as condition evolves, to assist patient/decision-maker with understanding of their medical conditions, weighing benefits/burdens of treatment options, for clarification of goals of treatment. Additionally will assist with any symptoms of palliative concern (Marily Lopez) Attestation To help prompt me to consider important information that might be impacting today's encounter and assessment, information from prior notes written by myself or my colleagues may have been "brought forward" into today's note. My signature on this note, however, is an attestation that I personally performed the exam, history, and/or decision-making noted today, and, unless otherwise indicated, the interactions with patient, family, and staff as well as the review of records all occurred today. I also attest that the listed assessment and stated plan reflect my best clinical judgment today based on the combination of historical information, prior notes, and today's exam/ interactions. When time spent is documented, it refers only to time spent today by the signer, or if indicated, combined time spent today by collaborating physician/nurse practitioner. . (Marily Lopez) Collaborating MD Comments Chart reviewed. Case discussed with palliative care MANAGER ADULT. Above MANAGER ADULT note reviewed and I concur. . (Jason Buchanan MD) Marily Lopez Apr 30, 2017 12:34 Jason Buchanan MD May 18, 2017 13:08
--- NOTE | 2017-04-30 13:17 | HHI.FPPN ---
Subjective Remarks Patient was seen and examined this morning. He feels well and pain is well controlled with current p.o. regimen. He denies fevers, chills, nausea, vomiting. He is ready to have bowel movement at time of evaluation and denies any abdominal pain. He has been advanced to regular diet and tolerated that yesterday and this morning. Objective Vitals Vital Signs Date Time Temp Pulse Resp B/P (MAP) Pulse Ox O2 Delivery O2 Flow Rate FiO2 04/30/17 08:00 98.0 82 16 161/74 (103) 96 04/30/17 04:00 98.1 89 18 160/72 (101) 98 04/30/17 00:00 98.1 88 20 143/67 (92) 98 04/29/17 20:00 98.7 91 18 160/70 (100) 98 04/29/17 16:00 97.8 73 20 143/63 (89) 97 I/O 04/29/17 04/29/17 04/29/17 04/30/17 04/30/17 04/30/17 07:00 15:00 23:00 07:00 15:00 23:00 Intake Total 120 ml 360 ml Output Total 150 ml 680 ml 1000 ml Balance -30 ml -320 ml -1000 ml Intake Oral 120 ml 360 ml Output Urine Total 120 ml 650 ml Drainage Total 30 ml 30 ml Hemodialysis 1000 ml # Bowel Movements 1 Result Diagram: 04/30/17 0550 04/30/17 0550 Imaging Last Impressions Liver Ultrasound 04/24/17 0000 Signed Impressions: Service Date/Time: April 15:02 - CONCLUSION: 1. Mild hepatomegaly with increased hepatic echogenicity likely reflecting hepatic steatosis versus medical liver disease. 2. Cholelithiasis with mildly distended gallbladder and gallbladder wall thickening which may be chronic in etiology. Further evaluation may be performed with HIDA scan if there is significant clinical concern regarding acute cholecystitis. Dmitriy Kumar MD Chest X-Ray 04/24/17 0000 Signed Impressions: Service Date/Time: April 08:20 - CONCLUSION: Right internal jugular vas catheter and left internal jugular central line are in good positions with their tips at the junction of the superior vena cava and right atrium. No pneumothorax is noted. Red Toro MD Renal Ultrasound 04/22/17 0000 Signed Impressions: Service Date/Time: Saturday, April 22, 2017 21:27 - CONCLUSION: No obstructive uropathy or other acute abnormality. Incidentally seen benign-appearing left renal cyst. Ash Mason MD Head CT 04/21/17 0000 Signed Impressions: Service Date/Time: Friday, April 21, 2017 18:29 - CONCLUSION: Normal noncontrast head CT. Ash Mason MD Objective Remarks GENERAL: This is a cachectic male, lying in bed in NAD. Watching TV in no apparent distress receiving Dialysis SKIN: No rashes, ecchymoses or lesions outside of RLE as noted below. R internal jugular vas catheter and L internal jugular central line in place. HEAD: Atraumatic. Normocephalic. EYES: Pupils equal round and reactive. Extraocular motions intact. ENT: Nose without bleeding or drainage. Airway patent. NECK: Trachea midline. No JVD or lymphadenopathy. Supple, nontender, no meningeal signs. CARDIOVASCULAR: Regular rate and rhythm without murmurs, gallops, or rubs. RESPIRATORY: Clear to auscultation. Breath sounds equal bilaterally. No wheezes , rales, or rhonchi. GASTROINTESTINAL: Abdomen soft, non-tender, nondistended. Hypoactive bowel sounds. No hepato-splenomegaly, or palpable masses. No guarding. MUSCULOSKELETAL: RLE with [id number] amputation, no drain, with dressing being clean dry and intact. Skin is warm above level of amputation. LLE warm to touch, +palpated left DP pulse NEUROLOGICAL: Cranial nerves grossly intact. Moving LLE and upper extremities spontaneously. Answers questions appropriately today. Medications and IVs Inpatient Medications Acetaminophen (Tylenol) 650 mg UNSCH PRN PO for headach, pain, temp > 101F; Start 04/24/17 at 07:00 Albumin Human 100 ml @ 60 mls/hr UNSCH PRN IV WITH DIALYSIS Last administered on 04/24/17at 09:22; Start 04/24/17 at 07:00 Albuterol Sulfate (Albuterol Neb) 2.5 mg ONCE ONCE NEB Last administered on at 06:50; Start 04/24/17 at 06:30; Stop 04/24/17 at 06:31; Status DC Amlodipine Besylate (Norvasc) 5 mg ONCE ONCE PO Last administered on at 20:28; Start 04/22/17 at 19:15; Stop 04/22/17 at 19:17; Status DC Aspirin (Aspirin Chew) 162 mg DAILY PO ; Start 04/23/17 at 15:15; Stop 04/23/17 at 16:21; Status DC Calcium Chloride 1 gm/Dextrose 110 ml @ 110 mls/hr NOW ONCE IV ; Start at 06:45; Stop 04/24/17 at 06:45; Status DC Calcium Gluconate 1 gm/Dextrose 110 ml @ 110 mls/hr ONCE ONCE IV Last administered on 04/24/17at 07:35; Start 04/24/17 at 06:30; Stop 04/24/17 at 07:29 ; Status DC Calcium Gluconate 1 gm/Sodium Chloride 110 ml @ 110 mls/hr ONCE ONCE IV Last administered on 04/26/17at 12:35; Start 04/26/17 at 11:15; Stop 04/26/17 at 12:14 ; Status DC Calcium Gluconate 2 gm/Dextrose 120 ml @ 120 mls/hr ONCE ONCE IV Last administered on 04/23/17at 00:12; Start 04/23/17 at 23:30; Stop 04/24/17 at 00:29 ; Status DC Cefazolin Sodium (Ancef Inj) 2,000 mg ONCE ONCE IV ; Start 04/24/17 at 19:42; Stop 04/24/17 at 19:57; Status DC Ceftriaxone Sodium 1000 mg/ Sodium Chloride 100 ml @ 200 mls/hr Q24H IV ; Start 04/23/17 at 15:00; Stop 04/23/17 at 15:12; Status DC Chlorhexidine Gluconate (Chlorhexidine 2% Cloth) 3 pack UNSCH PRN TOP HYGIENIC CARE; Start 04/21/17 at 21:15 Clonidine (Catapres) 0.1 mg UNSCH PRN PO for BP > 180/100 X 2 readings; Start 04/24/17 at 07:00 Desmopressin Acetate 5 mcg/ Sodium Chloride 51.25 ml @ 100 mls/hr ONCE ONCE IV ; Start 04/26/17 at 15:45; Stop 04/26/17 at 16:15; Status DC Dextrose (D50w (Vial) Inj) 50 ml UNSCH PRN IV PUSH HYPOGLYCEMIA-SEE COMMENTS; Start 04/25/17 at 08:15 Dextrose/Sodium Chloride 1,000 ml @ 200 mls/hr Q5H IV ; Start 04/22/17 at 17:00 ; Stop 04/22/17 at 18:46; Status DC Diphenhydramine HCl (Benadryl) 25 mg UNSCH PRN PO for hives/itching/anaphylaxis ; Start 04/24/17 at 07:00 Epoetin Cristian (Epogen Inj) 10,000 units UNSCH PRN IV PUSH WITH DIALYSIS Last administered on 04/30/17at 09:05; Start 04/25/17 at 13:00 Famotidine (Pepcid Inj) 10 mg Q12HR IV PUSH Last administered on 04/30/17at 08: 27; Start 04/23/17 at 21:00 Furosemide (Lasix Inj) 40 mg ONCE ONCE IV PUSH Last administered on 04/24/17at 07:32; Start 04/24/17 at 06:30; Stop 04/24/17 at 06:31; Status DC Gelatin (Gelfoam 12 Mm/7 Mm Top) 1 foam UNSCH PRN TOP SEE LABEL COMMENTS; Start 04/24/17 at 07:00 Gentamicin Sulfate (Gentamicin Inj) 20 mg UNSCH PRN OTHER WITH DIALYSIS Last administered on 04/30/17at 09:05; Start 04/24/17 at 07:00 Glucagon (Glucagon Inj) 1 mg UNSCH PRN OTHER HYPOGLYCEMIA-SEE COMMENTS; Start 04/25/17 at 08:15 Heparin Sodium (Porcine) (Heparin Inj) 5,000 units Q12H SQ Last administered on 04/30/17at 12:15; Start 04/29/17 at 12:00 Heparin Sodium/ Dextrose 250 ml @ 12.438 mls/ hr TITRATE PRN IV Coagulation Management Last administered on 04/23/17at 23:04; Start 04/23/17 at 20:45; Stop 04/29/17 at 11:01; Status DC Hydralazine HCl (Apresoline Inj) 10 mg Q6H PRN IV PUSH SBP> OR = 180, DBP> OR = 100 Last administered on 04/23/17at 01:05; Start 04/21/17 at 21:30 Hydromorphone HCl (Dilaudid Pf Inj) 0.2 mg Q4H PRN IV PUSH BREAKTHROUGH PAIN Last administered on 04/28/17at 08:49; Start 04/23/17 at 23:30 Insulin Aspart (NovoLOG SUPPLEMENTAL SCALE) 1 Q4H SQ Last administered on at 12:17; Start 04/25/17 at 09:00 Insulin Aspart (NovoLOG INJ) 5 units TIDAC SQ Last administered on 04/23/17at 17 :00; Start 04/22/17 at 18:45; Stop 04/24/17 at 04:34; Status DC Insulin Detemir (Levemir Inj) 5 units ONCE SQ ; Start 04/23/17 at 23:30; Stop at 02:00; Status DC Insulin Human Regular (NovoLIN R INJ) 10 units ONCE ONCE IV PUSH Last administered on 04/24/17at 05:30; Start 04/24/17 at 04:45; Stop 04/24/17 at 04:46 ; Status DC Insulin Human Regular 100 units/ Sodium Chloride 100 ml @ 2 mls/hr TITRATE PRN IV Blood Glucose Control; Start 04/24/17 at 10:15; Stop 04/25/17 at 08:11; Status DC Levofloxacin/ Dextrose 100 ml @ 100 mls/hr Q48H IV Last administered on at 16:26; Start 04/25/17 at 16:00 Mannitol (Mannitol Inj) 12.5 gm UNSCH PRN IV WITH DIALYSIS; Start 04/24/17 at 07:00 Miscellaneous Information ALL NURSING DEPARTME... UNSCH PRN .XX SEE LABEL COMMENTS; Start 04/26/17 at 15:54; Stop 04/27/17 at 15:53; Status DC Nitroglycerin (Nitrostat Sl) 0.4 mg UNSCH PRN SL CHEST PAIN; Start 04/24/17 at 07:00 Ondansetron HCl (Zofran Inj) 4 mg UNSCH PRN IV PUSH WITH DIALYSIS; Start at 07:00 Oxycodone HCl (Roxicodone) 10 mg Q4H PRN PO PAIN 8-10 Last administered on 04/30at 00:18; Start 04/23/17 at 23:30 Potassium Chloride 100 ml @ 50 mls/hr Q2H PRN IV SEE LABEL COMMENTS; Start 01/27 at 21:15; Stop 04/22/17 at 18:46; Status DC Rifaximin (Xifaxan) 550 mg BID PO Last administered on 04/30/17at 08:26; Start 04/24/17 at 09:00 Sodium Bicarbonate 50 meq/Dextrose 1,000 ml @ 150 mls/hr Q6H40M IV Last administered on 04/25/17at 04:54; Start 04/23/17 at 17:15; Stop 04/25/17 at 08:11 ; Status DC Sodium Bicarbonate 50 meq/Sterile Water 900 ml @ 75 mls/hr Q12H IV ; Start at 16:00; Stop 04/23/17 at 17:08; Status DC Sodium Polystyrene Sulfonate (Kayexalate Liq) 30 gm ONCE ONCE PO Last administered on 04/24/17at 07:32; Start 04/24/17 at 06:30; Stop 04/24/17 at 06:31 ; Status DC Sodium Bicarbonate (Sodium Bicarbonate 8.4% Inj) 100 meq ONCE ONCE IV PUSH Last administered on 04/24/17at 07:31; Start 04/24/17 at 06:30; Stop 04/24/17 at 06:31; Status DC Sodium Chloride (NS Flush) 5 ml UNSCH PRN IV FLUSH WITH DIALYSIS; Start at 07:00 Sodium Chloride 38.5 meq/Sterile Water 1,009.625 ml @ 84 mls/hr Q12H2M IV Last administered on 04/23/17at 08:02; Start 04/22/17 at 20:00; Stop 04/23/17 at 16:05 ; Status DC Sodium Phosphate 15 mmol/Sodium Chloride 105 ml @ 25 mls/hr UNSCH PRN IV SEE LABEL COMMENTS; Start 04/21/17 at 21:15 Water (Free Water) 200 ml Q6HR PO Last administered on 04/24/17at 06:00; Start 04/23/17 at 18:00; Stop 04/29/17 at 11:01; Status DC Urinary Catheter: No Vascular Central Line Catheter: No Line: Central Venous Catheter Side: Right Location: Jugular A/P Assessment and Plan Patient is 67 year old Male with PMHx of HTN and DM presented to ED via EVAC due to 1 wk hx of decreased po intake. Patient found to be altered, hypertensive with blood glucose greater than 900, elevated anion gap of 29, beta hydroxy of 11.9. Patient admitted to management of DKA. Transitioned to SQ insulin on 04/22. Of note, communication with the patient has been difficult at times. [employer] interpreter for the deaf was used on 04/23 as patient is primarily [place] speaking, and the interpreter for the deaf could not understand the patient. Nursing staff and medical team has been able to communicate with the patient in [place] Citizen successfully at times but he occasionally slurs his speech/is not understandable. On 04/23 patient was found to have significant transaminitis as well as worsening renal function. Nephrology, GI consulted. A discussion was had with the patient's on 04/23 and she stated that all of the patient's symptoms (including his R leg stiffness/loss of function) were new and that he had been found down for up to 5 hours before coming to the ER. Vascular was consulted at that time and it was noted that patient had no palpable pulses, either femoral, popliteal, dorsalis pedis or post tibial. Ultrasound revealed complete occlusion of blood flow to the R leg and patient was immediately taken to the OR for R leg clot fasciotomy thrombectomy. On 04/24 patient was found to have worsening renal function with Creatinine of 4.85 and a Potassium of 7.1. R int jugular vascular cath was placed and patient underwent HD at that time. Labs were indicative of rhabdomyolysis. Right above knee amputation with wound vac was performed on 04/24. Received one blood transfusion following the procedure. S/P closure of amputation site on 04/27 with drain removal 04/29. Getting HD MWF. Unclear clinical course ahead. Palliative care consulted 04/29 to further elucidate goals of care, appreciate recommendations. Critical Care, Vascular, and Nephrology managing, appreciate assistance in this patient's care. Critical Care signed off 04/28. * Neuro: intermittent AMS resolved, Dementia * Patient's states that his baseline is totally normal. Suspect possible CVA prior to ED arrival. Also suspecting Dementia vs delirium as patient continues to express lack of knowledge of his amputation at times * Last normal appears to be 7AM on 04/21/2017 per * Orders for CVA workup initiated, but as patient has multiple problems currently requiring intensive treatment, several of these studies may be delayed. Brain MRI/MRA noncontrast held, Carotid US held due to jugular venous lines placed, echocardiogram ordered and overall unremarkable, PT/OT/speech evaluations. CT head negative in ED. Consider ordering MRI once stable * No previous CVA history * Lipid profile showing triglycerides 200, cholesterol 155, LDL 102, HDL 12.6, A1c 17.7 * Will initiate atorvastatin once liver function is stable * Rehab at discharge * CV: Hx CABG remotely, Intermittent bradycardia, HTN, critical limb ischemia s/ p amputation * Continue telemetry * Echo 04/24 showing EF 60-65%, normal LV size, no noted wall motion abnormalities * HTN now being treated with amlodipine, wnl overall over 24hr * Vascular surgery performed R leg clot fasciotomy thrombectomy on 04/23. * Right above knee amputation with wound vac was performed on 04/24. * Amputation closure performed 04/26 * GI: acute transaminitis, difficulty swallowing, hyperammonemia * Transaminitis resolving. Unclear etiology as LFTs were normal on admission, suspecting rhabdomyolysis as likely cause. * Was given Ofirmev x 1 on 04/22. Tylenol level normal * Patient is asymptomatic, no jaundice or alcoholic history * Transaminases 3000 on 04/24. Bilirubin normal. Trending down, close to normal on 04/30 * CK improving but still markedly elevated. Normal on admission * US Liver on 04/24 showed findings consistent with hepatic steatosis versus medical liver disease. Cholelithiasis noted. * Gastroenterology signed off on 04/24. * Hepatitis panel negative. * Hyperammonemia of 75 and 04/24 - given Rifaximin 500 g BID and trending ammonia level. Improved to 33 on 04/28. Recheck 04/30 showed normalization * Speech therapy evaluated and now cleared for solid diet as of 04/29. * FEN/RENAL: acute renal failure complicated by chronic kidney disease, hypoalbuminemia, hypocalcemia, rhabdomyolysis * Creatinine 6.31 on 04/30 prior to dialysis with GFR 9 * Hypernatremia resolved * Hyperkalemia resolved * Hypocalcemia improved * Urine prot/creat ratio 5.06, very elevated, suspect diabetic nephropathy * Renal US normal * Nephrology consulted, appreciate recommendations * Hemodialysis dependent initiated 04/24, now scheduled MWF. 2L removed 04/28. UOP 0.37ml/kg/hr, inadequate * ID: UTI complicated by male gender, race, urethral injury, Leukocytosis 04/29 * Leukocytosis on admission resolved but recurred 04/29, will monitor. No signs of infection, afebrile. Repeat CBC this afternoon, if still elevated may initiate w/u * VS not showing signs of systemic infection * CXR on admission normal * Patient removed catheter traumatically on 04/21/2017 * Catheter replaced and in place since admission * Given renal and liver disease, consulted Pharmacist monitor technician who recommended Levaquin, 750mg IV q 24hr, then 500mg IV q 48 started on 04/23. Will continue for 10 day course (stop date 05/02). Dosing has been renally adjusted due to ESRD * Urine culture growing Klebsiella, Group B strep - pansensitive * Lactic acid 1.1 on 04/25 * CRP 21.10 on 04/24 * HEME: rhabdomyolysis, acute blood loss anemia, anemia of chronic disease * Goal Hgb > 7 * Nephrology started Epoetin 10,000 units with dialysis * Urethral bleeding / traumatic catheter removal resolved * Urine color significantly improved, and UOP improving * Status post 2 units of packed red blood cells following amputation on 04/24 * Monitor CBC daily, PRBCs for Hgb <7 or sx * Surgical drain in place on RLE, to monitor for any acute increase in bleeding * Total creatinine kinase trending down * ENDO: Diabetes * Hyperglycemia: HHS on admission, resolved on 04/22 but insulin drip resumed on 04/24. Discontinued insulin drip and started SSI on 04/25 * Blood glucose ranging from 100s-300s over last 24 hours, receiving supplemental Novolog PRN * A1c 17.7 * car restorer, real estate rental agent consulted * TSH wnl * Patient now cleared for regular diet, initiate Levemir 3 units BID given Novolog needs were 19U over 24hr, will increase daily PRN * PROPH/LINES: * Famotidine 20mg IV BID for stress ulcer prophylaxis Discharge Planning Anticipate transition to half-way care facility (or SNF) with dialysis, rehab, medication administration. Case Management consulted for SNF placement sdw Dr. Cheung Problem List: (1) Hyperammonemia ICD Codes: E72.20 - Disorder of urea cycle metabolism, unspecified (2) Compartment syndrome ICD Codes: T79.A0XA - Compartment syndrome, unspecified, initial encounter (3) Diabetes mellitus ICD Codes: E11.9 - Diabetes mellitus Status: Chronic (4) Hypertension ICD Codes: I10 - Hypertension Status: Acute (5) Acute renal failure ICD Codes: N17.9 - Acute kidney failure, unspecified (6) Hypernatremia ICD Codes: E87.0 - Hyperosmolality and hypernatremia (7) Hyperkalemia ICD Codes: E87.5 - Hyperkalemia (8) UTI (urinary tract infection) ICD Codes: N39.0 - Urinary tract infection, site not specified (9) Transaminitis ICD Codes: R74.0 - Nonspecific elevation of levels of transaminase and lactic acid dehydrogenase [LDH] Roma Armijo MD Apr 30, 2017 13:17
[2017-04-30] MEDS ORDERED: CEFAZOLIN INJ 2,000 MG in SODIUM CHLORIDE 0.9% INJ 100 ML IV SCH (14:30)
[2017-04-30] MEDS ORDERED: VANCOMYCIN INJ 1,000 MG in SODIUM CHLOR 0.9% 250 ML INJ 250 ML IV SCH (14:30)
[2017-04-30] MEDS ORDERED: ceFAZolin 2 GM PREMIX 50 ML IV SCH (14:30)
[2017-04-30] MEDS ORDERED: VANCOMYCIN 1 GM/200 ML PREMIX IV SCH (14:30)
[2017-04-30 16:00] VITALS: BP_SYST 147; BP_SYST 96; BP_DIAS 56; BP_DIAS 60; PULSE 109; PULSE 92; RESP 18; RESP 20; TEMP 97.6; TEMP 99.9; O2SAT 95; O2SAT 97
[2017-04-30] MEDS: INSULIN DETEMIR 100 UNITS/ML VIAL SQ SCH (21:00)
[2017-05-01] VITALS: BP 151/63; PULSE 89; RESP 18; TEMP 98.1; O2SAT 99
[2017-05-01] MEDS: INSULIN ASPART SUPPLEMENTAL SCALE SQ SCH ×6 (01:00→22:20)
[2017-05-01] MEDS: CHLORHEXIDINE GLUCONATE 2 % 1 PACK (2 CLOTHS) TOP SCH (03:22)
[2017-05-01] MEDS: cloNIDine HCL 0.1 MG TAB PO PRN (04:16)
[2017-05-01 06:17] LABS: AUTOMATED NEUTROPHIL # 11.2 TH/MM3 (1.8-7.7); BASOPHIL % 0.3 % (0.0-2.0); EOSINOPHIL # 0.2 TH/MM3 (0-0.4); EOSINOPHIL % 1.1 % (0.0-4.0); LYMPH % 11.6 % (9.0-44.0); LYMPHOCYTE # 1.6 TH/MM3 (1.0-4.8); MEAN CELL VOLUME 95.8 FL (80.0-100.0); MEAN CORPUSCULAR HEMOGLOBIN 32.4 PG (27.0-34.0); MEAN CORPUSCULAR HGB CONC 33.8 % (32.0-36.0); MEAN PLATELET VOLUME 8.4 FL (7.0-11.0); MONO % 7.6 % (0.0-8.0); MONOCYTE # 1.1 TH/MM3 (0-0.9); NEUT % 79.4 % (16.0-70.0); PLATELET COUNT 195 TH/MM3 (150-450); RED BLOOD COUNT 2.03 MIL/MM3 (4.50-5.90); RED CELL DISTRIBUTION WIDTH 14.7 % (11.6-17.2); WHITE BLOOD COUNT 14.1 TH/MM3 (4.0-11.0)
[2017-05-01 06:26] LABS: HEMATOCRIT 19.5 % (39.0-51.0); HEMOGLOBIN 6.6 GM/DL (13.0-17.0)
[2017-05-01 07:00] LABS: ALBUMIN 1.8 GM/DL (3.4-5.0); ALKALINE PHOSPHATASE 117 U/L (45-117); ALT (GPT) 27 U/L (12-78); AST (GOT) 67 U/L (15-37); BICARBONATE 28.4 MEQ/L (21.0-32.0); BLOOD UREA NITROGEN 36 MG/DL (7-18); CHLORIDE 103 MEQ/L (98-107); CREATININE 5.09 MG/DL (0.60-1.30); GLOMERULAR FILTRATION RATE 11 ML/MIN (>89); GLUCOSE,RANDOM 120 MG/DL (74-106); SODIUM (NA) 142 MEQ/L (136-145); TOTAL BILIRUBIN ADULT 0.3 MG/DL (0.2-1.0); TOTAL PROTEIN 5.2 GM/DL (6.4-8.2)
[2017-05-01 08:00] VITALS: BP 150/55; PULSE 90; RESP 18; TEMP 97.4; O2SAT 100
[2017-05-01] MEDS: RIFAXIMIN 550 MG TAB PO SCH ×2 (08:47→22:18)
[2017-05-01] MEDS: FAMOTIDINE 20 MG/2 ML VIAL IV PUSH SCH ×2 (08:48→22:19)
[2017-05-01] MEDS: INSULIN DETEMIR 100 UNITS/ML VIAL SQ SCH ×2 (08:48→22:20)
[2017-05-01] MEDS: SODIUM CHLORIDE 0.9% FLUSH 10 ML FLUSH IV FLUSH SCH ×2 (08:49→22:19)
--- NOTE | 2017-05-01 09:17 | HHI.FPPN ---
Subjective Remarks No acute events overnight. Patient is upset about being moved to a different room with the concern that his new room "is not safe." Discussed with patient why he was transferred out of the ICU as he was no longer critical and that the hospital is full with ICU beds needed for critical patients. Otherwise he denies any pain, SOB, N/V. Objective Vitals Vital Signs Date Time Temp Pulse Resp B/P (MAP) Pulse Ox O2 Delivery O2 Flow Rate FiO2 05/01/17 08:00 97.4 90 18 150/55 (86) 100 05/01/17 00:00 98.1 89 18 151/63 (92) 99 04/30/17 16:00 99.9 109 18 147/60 (89) 95 I/O 04/30/17 04/30/17 04/30/17 05/01/17 05/01/17 05/01/17 07:00 15:00 23:00 07:00 15:00 23:00 Intake Total 480 ml Output Total 1000 ml 200 ml Balance -1000 ml 280 ml Intake Oral 480 ml Output Urine Total 200 ml Hemodialysis 1000 ml Result Diagram: 05/01/1745 05/01/1745 Objective Remarks GENERAL: This is a cachectic male, lying in bed in NAD. Watching TV but upset about being moved to a new room. SKIN: No rashes, ecchymoses or lesions outside of RLE as noted below. R internal jugular vas catheter and L internal jugular central line in place. HEAD: Atraumatic. Normocephalic. EYES: Pupils equal round and reactive. Extraocular motions intact. ENT: Nose without bleeding or drainage. Airway patent. NECK: Trachea midline. No JVD or lymphadenopathy. Supple, nontender, no meningeal signs. CARDIOVASCULAR: Regular rate and rhythm without murmurs, gallops, or rubs. RESPIRATORY: Clear to auscultation. Breath sounds equal bilaterally. No wheezes , rales, or rhonchi. GASTROINTESTINAL: Abdomen soft, non-tender, nondistended. Hypoactive bowel sounds. No hepato-splenomegaly, or palpable masses. No guarding. MUSCULOSKELETAL: RLE with [id number] amputation, no drain, with dressing being clean dry and intact. Skin is warm above level of amputation. LLE warm to touch, +palpated left DP pulse NEUROLOGICAL: Cranial nerves grossly intact. Moving LLE and upper extremities spontaneously. Answers questions appropriately today. Line: Central Venous Catheter Side: Right Location: Jugular A/P Assessment and Plan Patient is 67 year old Male with PMHx of HTN and DM presented to ED via EVAC due to 1 wk hx of decreased po intake. Patient found to be altered, hypertensive with blood glucose greater than 900, elevated anion gap of 29, beta hydroxy of 11.9. Patient admitted to management of DKA. Transitioned to SQ insulin on 04/22. Of note, communication with the patient has been difficult at times. [employer] dairy cattle farm manager was used on 04/23 as patient is primarily Slovak speaking, and the dairy cattle farm manager could not understand the patient. Nursing staff and medical team has been able to communicate with the patient in Czech successfully at times but he occasionally slurs his speech/is not understandable. On 04/23 patient was found to have significant transaminitis as well as worsening renal function. Nephrology, GI consulted. A discussion was had with the patient's on 04/23 and she stated that all of the patient's symptoms (including his R leg stiffness/loss of function) were new and that he had been found down for up to 5 hours before coming to the ER. Vascular was consulted at that time and it was noted that patient had no palpable pulses, either femoral, popliteal, dorsalis pedis or post tibial. Ultrasound revealed complete occlusion of blood flow to the R leg and patient was immediately taken to the OR for R leg clot fasciotomy thrombectomy. On 04/24 patient was found to have worsening renal function with Creatinine of 4.85 and a Potassium of 7.1. R int jugular vascular cath was placed and patient underwent HD at that time. Labs were indicative of rhabdomyolysis. Right above knee amputation with wound vac was performed on 04/24. Received one blood transfusion following the procedure. S/P closure of amputation site on 04/27 with drain removal 04/29. Getting HD MWF. Unclear clinical course ahead. Palliative care consulted 04/29 to further elucidate goals of care, appreciate recommendations. Critical Care, Vascular, and Nephrology managing, appreciate assistance in this patient's care. Critical Care signed off 04/28. * Neuro: intermittent AMS resolved, Dementia * Patient's states that his baseline is totally normal. Suspect possible CVA prior to ED arrival. Also suspecting Dementia vs delirium as patient continues to express lack of knowledge of his amputation at times * Last normal appears to be 7AM on 04/21/2017 per * Orders for CVA workup initiated, but as patient has multiple problems currently requiring intensive treatment, several of these studies may be delayed. Brain MRI/MRA noncontrast held, Carotid US held due to jugular venous lines placed, echocardiogram ordered and overall unremarkable, PT/OT/speech evaluations. CT head negative in ED. Consider ordering MRI once stable * No previous CVA history * Lipid profile showing triglycerides 200, cholesterol 155, LDL 102, HDL 12.6, A1c 17.7 * Will initiate atorvastatin once liver function is stable * Rehab at discharge * CV: Hx CABG remotely, Intermittent bradycardia, HTN, critical limb ischemia s/ p amputation * Continue telemetry * Echo 04/24 showing EF 60-65%, normal LV size, no noted wall motion abnormalities * HTN now being treated with amlodipine, mildly elevated up to 151/63 on 05/01 * Vascular surgery performed R leg clot fasciotomy thrombectomy on 04/23. * Right above knee amputation with wound vac was performed on 04/24. * Amputation closure performed 04/26 * GI: acute transaminitis, difficulty swallowing, hyperammonemia * Transaminitis resolving. Unclear etiology as LFTs were normal on admission, suspecting rhabdomyolysis as likely cause. * Was given Ofirmev x 1 on 04/22. Tylenol level normal * Patient is asymptomatic, no jaundice or alcoholic history * Transaminases 3000 on 04/24. Bilirubin normal. Trending down, near normal on * CK improving but still markedly elevated. Normal on admission * US Liver on 04/24 showed findings consistent with hepatic steatosis versus medical liver disease. Cholelithiasis noted. * Gastroenterology signed off on 04/24. * Hepatitis panel negative. * Hyperammonemia of 75 and 04/24 - given Rifaximin 500 g BID and trending ammonia level. Improved to 33 on 04/28. Recheck 04/30 showed normalization * Speech therapy evaluated and now cleared for solid diet as of 04/29. * FEN/RENAL: acute renal failure complicated by chronic kidney disease, hypoalbuminemia, hypocalcemia, rhabdomyolysis * Creatinine 5.09 on 05/01 after dialysis on 04/30 with GFR 11 * Hypernatremia resolved * Hyperkalemia resolved * Hypocalcemia improved * Urine prot/creat ratio 5.06, very elevated, suspect diabetic nephropathy * Renal US normal * Nephrology consulted, appreciate recommendations * Hemodialysis dependent initiated 04/24, now scheduled MWF. UOP 11 ml/kg/hr, inadequate * Will likely need HD for 6 weeks, could have this done in outpatient setting * ID: UTI complicated by male gender, race, urethral injury, Leukocytosis 04/29 * Leukocytosis on admission resolved but recurred 04/29, will monitor. No signs of infection, afebrile. Elevated to 14.1 on 05/01 - will continue to monitor for now * VS not showing signs of systemic infection * CXR on admission normal * Patient removed catheter traumatically on 04/21/2017 * Catheter replaced and in place since admission * Given renal and liver disease, consulted Pharmacist director online marketing who recommended Levaquin, 750mg IV q 24hr, then 500mg IV q 48 started on 04/23. Will continue for 10 day course (stop date 05/02). Dosing has been renally adjusted due to ESRD * Urine culture growing Klebsiella, Group B strep - pansensitive * Lactic acid 1.1 on 04/25 * CRP 21.10 on 04/24 * HEME: rhabdomyolysis, acute blood loss anemia, anemia of chronic disease * Goal Hgb > 7 * Nephrology started Epoetin 10,000 units with dialysis * Urethral bleeding 2/2 traumatic catheter removal resolved * Urine color significantly improved, and UOP improving * Status post 2 units of packed red blood cells following amputation on 04/24 * Monitor CBC daily, PRBCs for Hgb <7 or sx * Hgb 6.5 on 05/01 -> transfusing one unit and will follow H&H * Total creatinine kinase trending down * ENDO: Diabetes * Hyperglycemia: HHS on admission, resolved on 04/22 but insulin drip resumed on 04/24. Discontinued insulin drip and started SSI on 04/25 * Blood glucose ranging from 100s-300s over last 24 hours, receiving supplemental Novolog PRN * A1c 17.7 * early childhood special educator, steeple jack consulted * TSH wnl * Patient now cleared for regular diet, initiate Levemir 3 units BID given Novolog needs were 19U over 24hr, will increase daily PRN * PROPH/LINES: * Famotidine 20mg IV BID for stress ulcer prophylaxis Discharge Planning Anticipate transition to senior care care facility (or SNF) with dialysis, rehab, medication administration. Case Management consulted for SNF placement sdw Dr. Bernard Problem List: (1) Hyperammonemia ICD Codes: E72.20 - Disorder of urea cycle metabolism, unspecified Status: Acute (2) Compartment syndrome ICD Codes: T79.A0XA - Compartment syndrome, unspecified, initial encounter Status: Acute (3) Diabetes mellitus ICD Codes: E11.9 - Diabetes mellitus Status: Chronic (4) Hypertension ICD Codes: I10 - Hypertension Status: Acute (5) Acute renal failure ICD Codes: N17.9 - Acute kidney failure, unspecified Status: Acute (6) Hypernatremia ICD Codes: E87.0 - Hyperosmolality and hypernatremia (7) Hyperkalemia ICD Codes: E87.5 - Hyperkalemia Status: Acute (8) UTI (urinary tract infection) ICD Codes: N39.0 - Urinary tract infection, site not specified Status: Acute (9) Transaminitis ICD Codes: R74.0 - Nonspecific elevation of levels of transaminase and lactic acid dehydrogenase [LDH] Mango Cheung MD R1 May 01, 2017 09:17
[2017-05-01 09:48] LABS: BANDS 8 % (0-6); CORRECTED NUCLEATED RBC 1 /100 WBC (0-0); LYMPHOCYTES 11 % (9-44); MONOCYTES 6 % (0-8); MYELOCYTES 1 % (0-0); NEUTROPHIL # MANUAL DIFF 11.7 TH/MM3 (1.8-7.7); NUCLEATED RED BLOOD CELL 1 (0-0); POLYS (SEG NEUTROPHILS) 74 % (16-70)
[2017-05-01 09:49] LABS: POLYCHROMASIA 2.3 % (0.0-1.9); ROULEAUX PRESENT (NORMAL)
[2017-05-01] MEDS ORDERED: diphenhydrAMINE HCL 25 MG CAP PO PRN (10:00)
[2017-05-01] MEDS ORDERED: SODIUM CHLOR 0.9% 250 ML INJ 250 ML IV ONE (11:00)
[2017-05-01] MEDS ORDERED: MIDAZOLAM HCL 2 MG/2 ML VIAL ONE (11:03)
[2017-05-01] MEDS ORDERED: LIDOCAINE 1%/EPINEPHrine 1:100,000 SOLN 30 ML VIAL ONE (11:25)
[2017-05-01] MEDS ORDERED: HEPARIN SODIUM - IV 2,000 UNITS/2 ML VIAL IV FLUSH PRN (12:00)
[2017-05-01] MEDS ORDERED: SODIUM CHLORIDE 0.9% FLUSH 10 ML FLUSH IV FLUSH PRN (12:00)
--- NOTE | 2017-05-01 12:11 | RADRPT ---
EXAM DATE/TIME: 05/01/2017 11:25 [facility] COMPARISON: No previous studies available for comparison. INDICATIONS : Patient with a history of renal disease, needs dialysis. MEDICAL HISTORY : ESRD HTN Diabetes Cardiovascular disease SURGICAL HISTORY : CABG ENCOUNTER: Initial ACUITY: 1 week PAIN SCORE: 0/10 FLUORO TIME: 0.7 minutes IMAGE SERIES: 1 SEDATION TIME: 15 mins ACCESS: Right internal jugular vein SEDATION: 1.) 2 mg midazolam (Versed) IV 2.) 100 mcg fentanyl (Sublimaze) IV Prophylactic antibiotics were administered with appropriate pre-procedure timing. Vancomycin within 2 hours of procedure, Ancef (or alternative) within 1 hour of procedure. DEVICE: 1. 15 [place] dual lumen 23 cm Bowman II Plus catheter PROCEDURE : 1. Ultrasound-guided venipuncture. 2. PermaCath placement. 3. Conscious sedation with continuous EKG and oximetry monitoring. The risks, benefits and alternatives to the procedure were explained and verbal and written consent w as obtained. The site was prepped in sterile fashion. Full sterile technique was used, including ca p, mask, sterile gloves and gown and a large sterile sheet. Hand hygiene and 2% chlorhexidine and/or betadine/alcohol prep was utilized per protocol for cutaneous antisepsis. Sterile gel and sterile p robe cover were utilized for ultrasound guidance. The skin and subcutaneous tissues were infiltrated with local anesthetic solution. With ultrasound and fluoroscopic guidance a dermatotomy was created over the prescribed vein. A micr opuncture set was used to access the targeted vein and serial dilatation was performed to accept the prescribed length catheter. A subcutaneous tunnel was created in a retrograde fashion the catheter w as pulled through the tunnel. The catheter was flushed and assembled and locked with heparin. The c atheter was sutured in place. Conscious sedation was performed with the prescribed dosages and duration as above in the presence of an independent trained radiology nurse to assist in the monitoring of the patient. EKG and oximetry remained stable throughout the procedure. The patient tolerated the procedure well and there were n o complications. The patient was sent to post anesthesia recovery in stable condition. CONCLUSION: Uncomplicated PermaCath placement as above. Dmitriy Kumar MD on May 01, 2017 at 12:08 Board Certified Radiologist. This report was verified electronically.
[2017-05-01 12:30] VITALS: BP 151/62; PULSE 81; RESP 18; O2SAT 92
[2017-05-01 15:00] VITALS: BP 159/57; PULSE 80; RESP 12; TEMP 96.6; O2SAT 99
--- NOTE | 2017-05-01 15:37 | HHI.NPPN ---
Subjective History of Present Illness 67 year old with Hypertension,DKA, DM, ARF Additional Remarks No acute complaints Objective Data Data Vital Signs Date Time Temp Pulse Resp B/P (MAP) Pulse Ox O2 Delivery O2 Flow Rate FiO2 05/01/17 12:40 90 Nasal Cannula 2.00 05/01/17 12:30 81 18 151/62 (91) 92 05/01/17 08:00 97.4 90 18 150/55 (86) 100 05/01/17 00:00 98.1 89 18 151/63 (92) 99 04/30/17 16:00 99.9 109 18 147/60 (89) 95 -: 05/01/17 0545 05/01/17 0545 Physical Exam General Appearance: Well Developed, Well Nourished Neck Neck Exam: Neck Supple Pulmonary Resp Exam: Clear Bilaterally, Breath Sounds Equal Cardiology CV Exam: Regular, Normal Sinus Rhythm Gastrointestinal/Abdomen GI Exam: Soft, Non-Tender, Bowel Sounds Present Extremeties Extremities Exam: Moderate Edema Extremeties Remarks Rt AKA Neurologic Neuro Exam: Alert Assessment/Plan Problem List: (1) Acute renal failure ICD Codes: N17.9 - Acute kidney failure, unspecified Status: Acute Plan: Patient has chronic kidney disease and acute renal failure with rhabdomyolysis creatinine 4.53 -> 5.9 -> 7.2 -> 5.3 -> 6.3->5.09 UOP lower Remains HD dependent. On HD MWF - HD Progress noted poor blood flow PermCath placed d/w resident he may improve from ARF due to Rhabdo will wait [address] AVF he may transfer to rehab receive PRBC as Hb low Right lower leg ischemia now status post right AKA On Epogen for anemia - transfuse as needed. (2) CKD (chronic kidney disease) stage 3, GFR 30-59 ml/min ICD Codes: N18.3 - Chronic kidney disease, stage 3 (moderate) Status: Chronic Plan: kidney ultrasound left renal cyst (3) Diabetes ICD Codes: E11.9 - Type 2 diabetes mellitus without complications Status: Chronic Plan: History of DKA continue to monitor (4) Hypertension ICD Codes: I10 - Hypertension Status: Acute Plan: BP stable (5) DKA (diabetic ketoacidoses) ICD Codes: E13.10 - Other specified diabetes mellitus with ketoacidosis without coma Status: Acute Plan: Resolved (6) Hypernatremia ICD Codes: E87.0 - Hyperosmolality and hypernatremia Plan: stable Natacha Suarez MD May 01, 2017 15:37
[2017-05-01] MEDS: LEVOFLOXACIN 500 MG PREMIX INJ 100 ML IV SCH (16:00)
[2017-05-01 20:24] VITALS: O2SAT 97
[2017-05-01 22:27] VITALS: BP 148/65; PULSE 80; RESP 16; TEMP 96.5; O2SAT 99
[2017-05-02] VITALS (10 sets, daily range): BP systolic 135–198; BP diastolic 52–84; PULSE 62–102; RESP 16–19; TEMP 97–98.6; O2SAT 96–100
[2017-05-02] MEDS: INSULIN ASPART SUPPLEMENTAL SCALE SQ SCH ×6 (01:11→20:37)
[2017-05-02] MEDS: CHLORHEXIDINE GLUCONATE 2 % 1 PACK (2 CLOTHS) TOP SCH (03:19)
[2017-05-02 08:59] LABS: AUTOMATED NEUTROPHIL # 12.3 TH/MM3 (1.8-7.7); BASOPHIL % 0.2 % (0.0-2.0); EOSINOPHIL # 0.2 TH/MM3 (0-0.4); EOSINOPHIL % 1.1 % (0.0-4.0); HEMATOCRIT 23.4 % (39.0-51.0); LYMPH % 7.6 % (9.0-44.0); LYMPHOCYTE # 1.1 TH/MM3 (1.0-4.8); MEAN CELL VOLUME 94.8 FL (80.0-100.0); MEAN CORPUSCULAR HEMOGLOBIN 32.4 PG (27.0-34.0); MEAN CORPUSCULAR HGB CONC 34.2 % (32.0-36.0); MEAN PLATELET VOLUME 7.9 FL (7.0-11.0); MONO % 5.3 % (0.0-8.0); MONOCYTE # 0.8 TH/MM3 (0-0.9); NEUT % 85.8 % (16.0-70.0); PLATELET COUNT 226 TH/MM3 (150-450); RED BLOOD COUNT 2.47 MIL/MM3 (4.50-5.90); RED CELL DISTRIBUTION WIDTH 14.7 % (11.6-17.2); WHITE BLOOD COUNT 14.4 TH/MM3 (4.0-11.0)
[2017-05-02] MEDS: FAMOTIDINE 20 MG/2 ML VIAL IV PUSH SCH (09:00)
[2017-05-02] MEDS: SODIUM CHLORIDE 0.9% FLUSH 10 ML FLUSH IV FLUSH SCH ×2 (09:00→20:36)
[2017-05-02] MEDS: RIFAXIMIN 550 MG TAB PO SCH (09:00)
[2017-05-02] MEDS: INSULIN DETEMIR 100 UNITS/ML VIAL SQ SCH ×2 (09:00→20:37)
[2017-05-02 09:18] LABS: ALBUMIN 1.8 GM/DL (3.4-5.0); ALT (GPT) 21 U/L (12-78); CALCIUM 7.9 MG/DL (8.5-10.1); CHLORIDE 104 MEQ/L (98-107); GLUCOSE,RANDOM 133 MG/DL (74-106); SODIUM (NA) 143 MEQ/L (136-145)
[2017-05-02 09:20] LABS: ALKALINE PHOSPHATASE 104 U/L (45-117); AST (GOT) 44 U/L (15-37); BICARBONATE 26.2 MEQ/L (21.0-32.0); BLOOD UREA NITROGEN 41 MG/DL (7-18); CREATININE 5.59 MG/DL (0.60-1.30); GLOMERULAR FILTRATION RATE 10 ML/MIN (>89); TOTAL BILIRUBIN ADULT 0.4 MG/DL (0.2-1.0); TOTAL PROTEIN 5.2 GM/DL (6.4-8.2)
--- NOTE | 2017-05-02 11:22 | HHI.FPPN ---
Subjective Remarks Patient was seen and examined this morning. He expresses that he is ready to go home. He denies pain, shortness of breath. Does request extra blankets. Objective Vitals Vital Signs Date Time Temp Pulse Resp B/P (MAP) Pulse Ox O2 Delivery O2 Flow Rate FiO2 05/02/17 08:15 Room Air 05/02/17 08:00 98.2 62 18 150/68 (95) 97 05/02/17 04:51 98.6 87 16 148/52 100 05/02/17 04:00 98.1 102 19 162/70 (100) 05/02/17 01:12 97.0 84 16 153/63 99 05/02/17 00:54 97.6 90 16 135/54 99 05/02/17 00:16 97.6 90 16 135/54 (81) 99 05/01/17 22:27 96.5 80 16 148/65 (92) 99 05/01/17 20:24 97 21 05/01/17 20:15 Room Air 05/01/17 15:00 96.6 80 12 159/57 (91) 99 05/01/17 12:40 90 Nasal Cannula 2.00 05/01/17 12:30 81 18 151/62 (91) 92 I/O 05/01/17 05/01/17 05/01/17 05/02/17 05/02/17 05/02/17 07:00 15:00 23:00 07:00 15:00 23:00 Intake Total 0 ml 0 ml 410 ml Output Total 200 ml Balance 0 ml -200 ml 410 ml Intake Oral 0 ml 0 ml Packed Cells 330 ml Blood Product IV Normal Saline Flush 80 ml Output Urine Total 200 ml Result Diagram: 05/02/17 0840 05/02/17 0840 Imaging Last Impressions Catheter Placement X-Ray 05/01/17 0000 Signed Impressions: Service Date/Time: April 11:25 - CONCLUSION: Uncomplicated PermaCath placement as above. Dmitriy Kumar MD Liver Ultrasound 04/24/17 0000 Signed Impressions: Service Date/Time: April 15:02 - CONCLUSION: 1. Mild hepatomegaly with increased hepatic echogenicity likely reflecting hepatic steatosis versus medical liver disease. 2. Cholelithiasis with mildly distended gallbladder and gallbladder wall thickening which may be chronic in etiology. Further evaluation may be performed with HIDA scan if there is significant clinical concern regarding acute cholecystitis. Dmitriy Kumar MD Chest X-Ray 04/24/17 0000 Signed Impressions: Service Date/Time: April 08:20 - CONCLUSION: Right internal jugular vas catheter and left internal jugular central line are in good positions with their tips at the junction of the superior vena cava and right atrium. No pneumothorax is noted. Red Toro MD Renal Ultrasound 04/22/17 0000 Signed Impressions: Service Date/Time: Saturday, April 22, 2017 21:27 - CONCLUSION: No obstructive uropathy or other acute abnormality. Incidentally seen benign-appearing left renal cyst. Ash Mason MD Head CT 04/21/17 0000 Signed Impressions: Service Date/Time: Friday, April 21, 2017 18:29 - CONCLUSION: Normal noncontrast head CT. Ash Mason MD Objective Remarks GENERAL: This is a cachectic male, lying in bed in [facility]. SKIN: No rashes, ecchymoses or lesions outside of RLE as noted below. R internal jugular vas catheter and L internal jugular central line in place. HEAD: Atraumatic. Normocephalic. EYES: Pupils equal round and reactive. Extraocular motions intact. ENT: Nose without bleeding or drainage. Airway patent. NECK: Trachea midline. No JVD or lymphadenopathy. Supple, nontender, no meningeal signs. CARDIOVASCULAR: Regular rate and rhythm without murmurs, gallops, or rubs. RESPIRATORY: Clear to auscultation. Breath sounds equal bilaterally. No wheezes , rales, or rhonchi. GASTROINTESTINAL: Abdomen soft, non-tender, nondistended. Hypoactive bowel sounds. No hepato-splenomegaly, or palpable masses. No guarding. MUSCULOSKELETAL: RLE with [id number] amputation, no drain, with dressing being clean dry and intact. Skin is warm above level of amputation. LLE warm to touch, +palpated left DP pulse NEUROLOGICAL: Cranial nerves grossly intact. Moving LLE and upper extremities spontaneously. Answers questions appropriately today. Medications and IVs Inpatient Medications Acetaminophen (Tylenol) 650 mg UNSCH PRN PO for headach, pain, temp > 101F; Start 04/24/17 at 07:00 Albumin Human 100 ml @ 60 mls/hr UNSCH PRN IV WITH DIALYSIS Last administered on 04/24/17at 09:22; Start 04/24/17 at 07:00 Albuterol Sulfate (Albuterol Neb) 2.5 mg ONCE ONCE NEB Last administered on at 06:50; Start 04/24/17 at 06:30; Stop 04/24/17 at 06:31; Status DC Amlodipine Besylate (Norvasc) 5 mg ONCE ONCE PO Last administered on at 20:28; Start 04/22/17 at 19:15; Stop 04/22/17 at 19:17; Status DC Aspirin (Aspirin Chew) 162 mg DAILY PO ; Start 04/23/17 at 15:15; Stop 04/23/17 at 16:21; Status DC Calcium Chloride 1 gm/Dextrose 110 ml @ 110 mls/hr NOW ONCE IV ; Start at 06:45; Stop 04/24/17 at 06:45; Status DC Calcium Gluconate 1 gm/Dextrose 110 ml @ 110 mls/hr ONCE ONCE IV Last administered on 04/24/17at 07:35; Start 04/24/17 at 06:30; Stop 04/24/17 at 07:29 ; Status DC Calcium Gluconate 1 gm/Sodium Chloride 110 ml @ 110 mls/hr ONCE ONCE IV Last administered on 04/26/17at 12:35; Start 04/26/17 at 11:15; Stop 04/26/17 at 12:14 ; Status DC Calcium Gluconate 2 gm/Dextrose 120 ml @ 120 mls/hr ONCE ONCE IV Last administered on 04/23/17at 00:12; Start 04/23/17 at 23:30; Stop 04/24/17 at 00:29 ; Status DC Cefazolin Sodium (Ancef Inj) 2,000 mg ONCE ONCE IV ; Start 04/24/17 at 19:42; Stop 04/24/17 at 19:57; Status DC Cefazolin Sodium 2000 mg/Sodium Chloride 120 ml @ 240 mls/hr COMPUTER SPECIALIST IV Last administered on 05/01/17at 12:02; Start 04/30/17 at 14:30 Ceftriaxone Sodium 1000 mg/ Sodium Chloride 100 ml @ 200 mls/hr Q24H IV ; Start 04/23/17 at 15:00; Stop 04/23/17 at 15:12; Status DC Chlorhexidine Gluconate (Chlorhexidine 2% Cloth) 3 pack UNSCH PRN TOP HYGIENIC CARE; Start 04/21/17 at 21:15 Clonidine (Catapres) 0.1 mg UNSCH PRN PO for BP > 180/100 X 2 readings Last administered on 05/01/17at 04:16; Start 04/24/17 at 07:00 Desmopressin Acetate 5 mcg/ Sodium Chloride 51.25 ml @ 100 mls/hr ONCE ONCE IV ; Start 04/26/17 at 15:45; Stop 04/26/17 at 16:15; Status DC Dextrose (D50w (Vial) Inj) 50 ml UNSCH PRN IV PUSH HYPOGLYCEMIA-SEE COMMENTS; Start 04/25/17 at 08:15 Dextrose/Sodium Chloride 1,000 ml @ 200 mls/hr Q5H IV ; Start 04/22/17 at 17:00 ; Stop 04/22/17 at 18:46; Status DC Diphenhydramine HCl (Benadryl) 25 mg Q4H PRN PO SEE LABEL COMMENTS; Start 05/01 at 10:00 Epoetin Cristian (Epogen Inj) 10,000 units UNSCH PRN IV PUSH WITH DIALYSIS Last administered on 04/30/17at 09:05; Start 04/25/17 at 13:00 Famotidine (Pepcid Inj) 10 mg Q12HR IV PUSH Last administered on 05/01/17at 22: 19; Start 04/23/17 at 21:00 Furosemide (Lasix Inj) 40 mg ONCE ONCE IV PUSH Last administered on 04/24/17at 07:32; Start 04/24/17 at 06:30; Stop 04/24/17 at 06:31; Status DC Gelatin (Gelfoam 12 Mm/7 Mm Top) 1 foam UNSCH PRN TOP SEE LABEL COMMENTS; Start 04/24/17 at 07:00 Gentamicin Sulfate (Gentamicin Inj) 20 mg UNSCH PRN OTHER WITH DIALYSIS Last administered on 04/30/17at 09:05; Start 04/24/17 at 07:00 Glucagon (Glucagon Inj) 1 mg UNSCH PRN OTHER HYPOGLYCEMIA-SEE COMMENTS; Start 04/25/17 at 08:15 Heparin Sodium (Porcine) (Heparin Inj) UNSCH PRN IV FLUSH SEE PROTOCOL; Start 05/01/17 at 12:00 Heparin Sodium/ Dextrose 250 ml @ 12.438 mls/ hr TITRATE PRN IV Coagulation Management Last administered on 04/23/17at 23:04; Start 04/23/17 at 20:45; Stop 04/29/17 at 11:01; Status DC Hydralazine HCl (Apresoline Inj) 10 mg Q6H PRN IV PUSH SBP> OR = 180, DBP> OR = 100 Last administered on 04/23/17at 01:05; Start 04/21/17 at 21:30 Hydromorphone HCl (Dilaudid Pf Inj) 0.2 mg Q4H PRN IV PUSH BREAKTHROUGH PAIN Last administered on 04/28/17at 08:49; Start 04/23/17 at 23:30 Insulin Aspart (NovoLOG SUPPLEMENTAL SCALE) 1 Q4H SQ Last administered on at 04:49; Start 04/25/17 at 09:00 Insulin Aspart (NovoLOG INJ) 5 units TIDAC SQ Last administered on 04/23/17at 17 :00; Start 04/22/17 at 18:45; Stop 04/24/17 at 04:34; Status DC Insulin Detemir (Levemir Inj) 3 units Q12HR SQ Last administered on 05/01/17at 22:20; Start 04/30/17 at 21:00 Insulin Human Regular (NovoLIN R INJ) 10 units ONCE ONCE IV PUSH Last administered on 04/24/17at 05:30; Start 04/24/17 at 04:45; Stop 04/24/17 at 04:46 ; Status DC Insulin Human Regular 100 units/ Sodium Chloride 100 ml @ 2 mls/hr TITRATE PRN IV Blood Glucose Control; Start 04/24/17 at 10:15; Stop 04/25/17 at 08:11; Status DC Levofloxacin/ Dextrose 100 ml @ 100 mls/hr Q48H IV Last administered on at 16:00; Start 04/25/17 at 16:00; Stop 05/02/17 at 15:59 Mannitol (Mannitol Inj) 12.5 gm UNSCH PRN IV WITH DIALYSIS; Start 04/24/17 at 07:00 Miscellaneous Information ALL NURSING DEPARTME... UNSCH PRN .XX SEE LABEL COMMENTS; Start 04/26/17 at 15:54; Stop 04/27/17 at 15:53; Status DC Nitroglycerin (Nitrostat Sl) 0.4 mg UNSCH PRN SL CHEST PAIN; Start 04/24/17 at 07:00 Ondansetron HCl (Zofran Inj) 4 mg UNSCH PRN IV PUSH WITH DIALYSIS; Start at 07:00 Oxycodone HCl (Roxicodone) 10 mg Q4H PRN PO PAIN 8-10 Last administered on 05/01at 15:23; Start 04/23/17 at 23:30 Potassium Chloride 100 ml @ 50 mls/hr Q2H PRN IV SEE LABEL COMMENTS; Start 01/27 at 21:15; Stop 04/22/17 at 18:46; Status DC Rifaximin (Xifaxan) 550 mg BID PO Last administered on 05/01/17at 22:18; Start 04/24/17 at 09:00 Sodium Bicarbonate 50 meq/Dextrose 1,000 ml @ 150 mls/hr Q6H40M IV Last administered on 04/25/17at 04:54; Start 04/23/17 at 17:15; Stop 04/25/17 at 08:11 ; Status DC Sodium Bicarbonate 50 meq/Sterile Water 900 ml @ 75 mls/hr Q12H IV ; Start at 16:00; Stop 04/23/17 at 17:08; Status DC Sodium Polystyrene Sulfonate (Kayexalate Liq) 30 gm ONCE ONCE PO Last administered on 04/24/17at 07:32; Start 04/24/17 at 06:30; Stop 04/24/17 at 06:31 ; Status DC Sodium Bicarbonate (Sodium Bicarbonate 8.4% Inj) 100 meq ONCE ONCE IV PUSH Last administered on 04/24/17at 07:31; Start 04/24/17 at 06:30; Stop 04/24/17 at 06:31; Status DC Sodium Chloride (NS Flush) UNSCH PRN IV FLUSH SEE PROTOCOL; Start 05/01/17 at 12:00 Sodium Chloride 38.5 meq/Sterile Water 1,009.625 ml @ 84 mls/hr Q12H2M IV Last administered on 04/23/17at 08:02; Start 04/22/17 at 20:00; Stop 04/23/17 at 16:05 ; Status DC Sodium Phosphate 15 mmol/Sodium Chloride 105 ml @ 25 mls/hr UNSCH PRN IV SEE LABEL COMMENTS; Start 04/21/17 at 21:15 Vancomycin/Sodium Chloride 200 ml @ 200 mls/hr COMPUTER SPECIALIST IV Last administered on 05/01/17at 12:04; Start 04/30/17 at 14:30 Water (Free Water) 200 ml Q6HR PO Last administered on 04/24/17at 06:00; Start 04/23/17 at 18:00; Stop 04/29/17 at 11:01; Status DC Urinary Catheter: No Vascular Central Line Catheter: No Line: Central Venous Catheter Side: Right Location: Jugular A/P Assessment and Plan Patient is 67 year old Male with PMHx of HTN and DM presented to ED via EVAC due to 1 wk hx of decreased po intake. Patient found to be altered, hypertensive with blood glucose greater than 900, elevated anion gap of 29, beta hydroxy of 11.9. Patient admitted to management of DKA. Transitioned to SQ insulin on 04/22. Of note, communication with the patient has been difficult at times. [employer] humanities department chair was used on 04/23 as patient is primarily Thai speaking, and the humanities department chair could not understand the patient. Nursing staff and medical team has been able to communicate with the patient in Chinese successfully at times but he occasionally slurs his speech/is not understandable. On 04/23 patient was found to have significant transaminitis as well as worsening renal function. Nephrology, GI consulted. A discussion was had with the patient's on 04/23 and she stated that all of the patient's symptoms (including his R leg stiffness/loss of function) were new and that he had been found down for up to 5 hours before coming to the ER. Vascular was consulted at that time and it was noted that patient had no palpable pulses, either femoral, popliteal, dorsalis pedis or post tibial. Ultrasound revealed complete occlusion of blood flow to the R leg and patient was immediately taken to the OR for R leg clot fasciotomy thrombectomy. On 04/24 patient was found to have worsening renal function with Creatinine of 4.85 and a Potassium of 7.1. R int jugular vascular cath was placed and patient underwent HD at that time. Labs were indicative of rhabdomyolysis. Right above knee amputation with wound vac was performed on 04/24. Received one blood transfusion following the procedure. S/P closure of amputation site on 04/27 with drain removal 04/29. Getting HD MWF. Unclear clinical course ahead. Palliative care consulted 04/29 to further elucidate goals of care, appreciate recommendations. PermCath placed 05/01 for continued outpatient dialysis. Case management working on rehab discharge planning, possibly to [facility] (if [facility] bed available). Critical Care, Vascular, and Nephrology managing, appreciate assistance in this patient's care. Critical Care signed off 04/28. * Neuro: intermittent AMS resolved, Dementia * Patient's states that his baseline is totally normal. Suspect possible CVA prior to ED arrival. Also suspecting Dementia vs delirium as patient continues to express lack of knowledge of his amputation at times * Last normal appears to be 7AM on 04/21/2017 per * Orders for CVA workup initiated, but as patient has multiple problems currently requiring intensive treatment, several of these studies may be delayed. Brain MRI/MRA noncontrast held, Carotid US held due to jugular venous lines placed, echocardiogram ordered and overall unremarkable, PT/OT/speech evaluations. CT head negative in ED. Consider ordering MRI once stable * No previous CVA history * Lipid profile showing triglycerides 200, cholesterol 155, LDL 102, HDL 12.6, A1c 17.7 * Will initiate atorvastatin once liver function is stable, likely as outpt * Rehab at discharge * CV: Hx CABG remotely, Intermittent bradycardia, HTN, critical limb ischemia s/ p amputation * Continue telemetry * Echo 04/24 showing EF 60-65%, normal LV size, no noted wall motion abnormalities * HTN now being treated with amlodipine 5 mg daily * Vascular surgery performed R leg clot fasciotomy thrombectomy on 04/23. * Right above knee amputation with wound vac was performed on 04/24. * Amputation closure performed 04/26 * GI: acute transaminitis, difficulty swallowing, hyperammonemia * Transaminitis resolving. Unclear etiology as LFTs were normal on admission, suspecting rhabdomyolysis as likely cause. * Was given Ofirmev x 1 on 04/22. Tylenol level normal * Patient is asymptomatic, no jaundice or alcoholic history * Transaminases 3000 on 04/24. Bilirubin normal. Trending down * CK improving but still markedly elevated. Normal on admission * US Liver on 04/24 showed findings consistent with hepatic steatosis versus medical liver disease. Cholelithiasis noted. * Gastroenterology signed off on 04/24. * Hepatitis panel negative. * Hyperammonemia of 75 and 04/24 - given Rifaximin 500 g BID with d/c 05/02. Ammonia normal. * Speech therapy evaluated and now cleared for solid diet as of 04/29. * FEN/RENAL: acute renal failure complicated by chronic kidney disease, hypoalbuminemia, hypocalcemia, rhabdomyolysis * Creatinine 5.09 on 05/01 after dialysis on 04/30 with GFR 11 * Hypernatremia resolved * Hyperkalemia resolved * Hypocalcemia improved * Urine prot/creat ratio 5.06, very elevated, suspect diabetic nephropathy * Renal US normal * Nephrology consulted, appreciate recommendations * Hemodialysis dependent initiated 04/24, now scheduled MWF. UOP 11 ml/kg/hr, inadequate * Will likely need HD for 6 weeks, nephrology will set this up as outpt * ID: UTI complicated by male gender, race, urethral injury, Leukocytosis 04/29 * Leukocytosis on admission resolved but recurred 04/29, will monitor. No signs of infection, afebrile. Elevated to 14.1 on 05/01 - will continue to monitor for now * VS not showing signs of systemic infection * CXR on admission normal * Patient removed catheter traumatically on 04/21/2017 * Catheter replaced and in place since admission * Given renal and liver disease, consulted Pharmacist electronic publishing specialist who recommended Levaquin, 750mg IV q 24hr, then 500mg IV q 48 started on 04/23. Will continue for 10 day course (stop date 05/02). Dosing was renally adjusted due to ESRD * Urine culture growing Klebsiella, Group B strep - pansensitive * Lactic acid 1.1 on 04/25 * CRP 21.10 on 04/24 * HEME: rhabdomyolysis, acute blood loss anemia, anemia of chronic disease * Goal Hgb > 7 * Nephrology started Epoetin 10,000 units with dialysis * Urethral bleeding 2/ traumatic catheter removal resolved * Urine color significantly improved, and UOP improving * Status post 2 units of packed red blood cells following amputation on 04/24 * Monitor CBC daily, PRBCs for Hgb <7 or sx * Hgb 6.5 on 05/01 --> S/P one unit PRBCs with f/u Hgb 8.0, will recheck this afternoon, monitor serially * Total creatinine kinase trending down, to continue monitoring as outpatient with nephrology * ENDO: Diabetes * Hyperglycemia: HHS on admission, resolved on 04/22 but insulin drip resumed on 04/24. Discontinued insulin drip and started SSI on 04/25 * A1c 17.7 * teamsite developer, director account management consulted * TSH wnl * Patient now cleared for regular diet, Levemir 4 units BID with low-dose SSI PRN * PROPH/LINES: * Heparin 5000U sq q12h, held for PermCath, restart AM on 05/03 * PermCath 05/01/17 Discharge Planning Anticipate transition to [facility] care facility (or SNF) with dialysis, rehab, medication administration. Case Management consulted for SNF placement DW Dr. Bernard, SDW Dr. Cheung Problem List: (1) Hyperammonemia ICD Codes: E72.20 - Disorder of urea cycle metabolism, unspecified Status: Acute (2) Compartment syndrome ICD Codes: T79.A0XA - Compartment syndrome, unspecified, initial encounter Status: Acute (3) Diabetes mellitus ICD Codes: E11.9 - Diabetes mellitus Status: Chronic (4) Hypertension ICD Codes: I10 - Hypertension Status: Acute (5) Acute renal failure ICD Codes: N17.9 - Acute kidney failure, unspecified Status: Acute (6) Hypernatremia ICD Codes: E87.0 - Hyperosmolality and hypernatremia (7) Hyperkalemia ICD Codes: E87.5 - Hyperkalemia Status: Acute (8) UTI (urinary tract infection) ICD Codes: N39.0 - Urinary tract infection, site not specified Status: Acute (9) Transaminitis ICD Codes: R74.0 - Nonspecific elevation of levels of transaminase and lactic acid dehydrogenase [LDH] Problem Qualifiers (1) Acute renal failure: Qualified Codes: N17.9 - Acute kidney failure, unspecified (2) UTI (urinary tract infection): Qualified Codes: N10 - Acute pyelonephritis Roma Armijo MD May 02, 2017 11:22
[2017-05-02] MEDS ORDERED: OXYC-395 PO (11:40)
[2017-05-02] MEDS: GENTAMICIN SULFATE 20 MG/2 ML VIAL OTHER PRN (11:42)
[2017-05-02] MEDS: HEPARIN SODIUM - IV 10,000 UNITS/10 ML VIAL PRN (11:42)
[2017-05-02] MEDS: EPOETIN ALFA 10,000 UNITS/ML VIAL IV PUSH PRN (11:43)
--- NOTE | 2017-05-02 12:07 | HHI.DCPOC ---
Discharge Care Plan Diagnosis: (1) Diabetes mellitus (2) Hypertension (3) Ischemic leg (4) Rhabdomyolysis (5) Acute renal failure (6) Anemia associated with acute blood loss (7) UTI (urinary tract infection) Goals to Promote Your Health * To prevent worsening of your condition and complications * To maintain your health at the optimal level Directions to Meet Your Goals Take your medications as prescribed Follow your dietary instruction Follow activity as directed Keep your appointments as scheduled Take your immunizations and boosters as scheduled If your symptoms worsen call your PCP, if no PCP go to Urgent Care Center or Emergency Room Smoking is Dangerous to Your Health. Avoid second hand smoke Call the 24-hour hour crisis hotline for domestic abuse at Roma Armijo MD May 02, 2017 12:07
[2017-05-02] MEDS ORDERED: ACET325T15 PO (12:09)
[2017-05-02] MEDS: amLODIPine BESYLATE 5 MG TAB PO SCH (12:54)
--- NOTE | 2017-05-02 15:54 | HHI.NPPN ---
Subjective History of Present Illness 67 year old with Hypertension,DKA, DM, ARF Additional Remarks No acute complaints Objective Data Data Vital Signs Date Time Temp Pulse Resp B/P (MAP) Pulse Ox O2 Delivery O2 Flow Rate FiO2 05/02/17 12:00 97.8 98 18 168/75 (106) 96 05/02/17 08:15 Room Air 05/02/17 08:00 98.2 62 18 150/68 (95) 97 05/02/17 04:51 98.6 87 16 148/52 100 05/02/17 04:00 98.1 102 19 162/70 (100) 05/02/17 01:12 97.0 84 16 153/63 99 05/02/17 00:54 97.6 90 16 135/54 99 05/02/17 00:16 97.6 90 16 135/54 (81) 99 05/01/17 22:27 96.5 80 16 148/65 (92) 99 05/01/17 20:24 97 21 05/01/17 20:15 Room Air -: 05/02/17 0840 05/02/17 0840 Physical Exam General Appearance: Well Developed, Well Nourished Neck Neck Exam: Neck Supple Pulmonary Resp Exam: Clear Bilaterally, Breath Sounds Equal Cardiology CV Exam: Regular, Normal Sinus Rhythm Gastrointestinal/Abdomen GI Exam: Soft, Non-Tender, Bowel Sounds Present Extremeties Extremities Exam: Moderate Edema Extremeties Remarks Rt AKA Neurologic Neuro Exam: Alert Assessment/Plan Problem List: (1) Acute renal failure ICD Codes: N17.9 - Acute kidney failure, unspecified Status: Acute Plan: Patient has chronic kidney disease and acute renal failure with rhabdomyolysis creatinine 4.53 -> 5.9 -> 7.2 -> 5.3 -> 6.3->5.09 -> 5.5 UOP lower Remains HD dependent. On HD MWF - HD done earlier stable PermCath placed ARF due to Rhabdo will wait [address] AVF he may transfer to rehab receive PRBC as Hb low Right lower leg ischemia now status post right AKA On Epogen for anemia - transfuse as needed. (2) CKD (chronic kidney disease) stage 3, GFR 30-59 ml/min ICD Codes: N18.3 - Chronic kidney disease, stage 3 (moderate) Status: Chronic Plan: kidney ultrasound left renal cyst (3) Diabetes ICD Codes: E11.9 - Type 2 diabetes mellitus without complications Status: Chronic Plan: History of DKA continue to monitor (4) Hypertension ICD Codes: I10 - Hypertension Status: Acute Plan: BP stable (5) DKA (diabetic ketoacidoses) ICD Codes: E13.10 - Other specified diabetes mellitus with ketoacidosis without coma Status: Acute Plan: Resolved (6) Hypernatremia ICD Codes: E87.0 - Hyperosmolality and hypernatremia Plan: stable Problem Qualifiers (1) Acute renal failure: Qualified Codes: N17.9 - Acute kidney failure, unspecified Natacha Suarez MD May 02, 2017 15:54
--- NOTE | 2017-05-02 16:36 | HHI.HCPN ---
Reason for visit a. To assist with evaluation and management of symptoms including:Pain, debility b. To assist medical decision maker(s) with: better understanding of current medical conditions; weighing benefits/burdens of medical treatment options; making medical treatment decisions. (Marily Lopez) Subjective/Interval History Patient seen to follow-up on goals of care and symptom management. Feeling better today. Sitting up eating, still pleasantly confused, appears to be baseline dementia. Denies pain, right AKA incision stapled, no erythema or drainage erythema or drainage. Labs 05/01 showed hemoglobin 6.6 (7.6) and hematocrit 19.9 (21.8). He received 1 unit of packed red blood cells yesterday and today's labs show WBC 14.4, hemoglobin 8.0, hematocrit 23.4, platelets 226, sodium 143, potassium 3.6, BUN 41, creatinine 5.59, total creatinine kinase declined to 607. He is on hemodialysis Friday and Friday via permacath. This is considered due to acute renal failure due to rhabdomyolysis and nephrology plans to wait 6 weeks prior to placing AV fistula. He is cleared from nephrology standpoint for transfer to rehabilitation as soon as bed is available. [facility] when ready for discharge. . Family/friend interactions Spoke with and daughter at bedside. Reviewed CODE STATUS to include explanation of cardiac resuscitation and pulmonary resuscitation to include risks and benefits. Both agree that he should be made a DO NOT RESUSCITATE secondary to his multiple comorbidities, progressive disease processes to include dementia as well as previous conversations with the patient who indicated he did not wish to be resuscitated. DNR order entered and [place] DNR completed. . (Marily Lopez) Advance Directives Living Will: Never completed Health Care Surrogate: Copy in medical record Durable Power of Mobile Web Application Developer: Never completed (Marily Lopez) Advance Directive Specifics Date completed: 04/29/2017 . Health Care Surrogate(s): [facility]-Spouse- Marta Beqsvhdn-[phone] Alternate [facility]- Morris Graff . Significant change in goals: Per my discussion with the and daughter today, patient will be made a DO NOT RESUSCITATE. This is consistent with the patient's previously stated wishes. and daughter are in agreement. (Marily Lopez) Objective Vital Signs Date Time Temp Pulse Resp B/P (MAP) Pulse Ox O2 Delivery O2 Flow Rate FiO2 05/02/17 12:00 97.8 98 18 168/75 (106) 96 05/02/17 08:15 Room Air 05/02/17 08:00 98.2 62 18 150/68 (95) 97 05/02/17 04:51 98.6 87 16 148/52 100 05/02/17 04:00 98.1 102 19 162/70 (100) 05/02/17 01:12 97.0 84 16 153/63 99 05/02/17 00:54 97.6 90 16 135/54 99 05/02/17 00:16 97.6 90 16 135/54 (81) 99 05/01/17 22:27 96.5 80 16 148/65 (92) 99 05/01/17 20:24 97 21 05/01/17 20:15 Room Air Intake & Output 05/02/17 05/02/17 07:00 19:00 Intake Total 410 ml Balance 410 ml Packed Cells 330 ml Blood Product IV Normal Saline Flush 80 ml Physical Exam CONSTITUTIONAL/GENERAL: This is an adequately nourished patient, in no apparent distress. TUBES/LINES/DRAINS: Vas Cath, RAC PIV SKIN: No jaundice, rashes, or lesions. Ecchymoses on upper extremities.Surgical incision to R-AKA. Skin temperature appropriate. Not diaphoretic. CARDIOVASCULAR: S1, S2, regular rhythm, controlled rate, 2/6 systolic ejection murmur, no rub no gallop. RESPIRATORY/CHEST: Symmetric, unlabored respirations. Clear to auscultation. Breath sounds equal bilaterally. No wheezes, rales, or rhonchi. GASTROINTESTINAL: Abdomen soft, non-tender, nondistended. No guarding. Bowel sounds present. GENITOURINARY: Without palpable bladder distension. MUSCULOSKELETAL: Right AKA incision well approximated, stapled, no erythema or drainage. Open to air. Left lower extremity with diminished pulse, no edema NEUROLOGICAL: Awake and alert, oriented to self and place, motor and sensory grossly within normal limits. Follows commands. Moves all extremities. PSYCHIATRIC: No obvious anxiety/depression. no apparent hallucinations or other psychotic thought process. . (Marily Lopez) Diagnostic Tests Laboratory Laboratory Tests Test 04/30/17 05:50 04/30/17 06:25 05/01/17 05:45 05/02/17 08:40 White Blood Count 12.8 TH/MM3 (4.0-11.0) 14.1 TH/MM3 (4.0-11.0) 14.4 TH/MM3 (4.0-11.0) Red Blood Count 2.31 MIL/MM3 (4.50-5.90) 2.03 MIL/MM3 (4.50-5.90) 2.47 MIL/MM3 (4.50-5.90) Hemoglobin 7.6 GM/DL (13.0-17.0) 6.6 GM/DL (13.0-17.0) 8.0 GM/DL (13.0-17.0) Hematocrit 21.8 % (39.0-51.0) 19.5 % (39.0-51.0) 23.4 % (39.0-51.0) Mean Corpuscular Volume 94.4 FL (80.0-100.0) 95.8 FL (80.0-100.0) 94.8 FL (80.0-100.0) Mean Corpuscular Hemoglobin 32.7 PG (27.0-34.0) 32.4 PG (27.0-34.0) 32.4 PG (27.0-34.0) Mean Corpuscular Hemoglobin Concent 34.7 % (32.0-36.0) 33.8 % (32.0-36.0) 34.2 % (32.0-36.0) Red Cell Distribution Width 15.0 % (11.6-17.2) 14.7 % (11.6-17.2) 14.7 % (11.6-17.2) Platelet Count 229 TH/MM3 (150-450) 195 TH/MM3 (150-450) 226 TH/MM3 (150-450) Mean Platelet Volume 8.5 FL (7.0-11.0) 8.4 FL (7.0-11.0) 7.9 FL (7.0-11.0) Neutrophils (%) (Auto) 82.6 % (16.0-70.0) 79.4 % (16.0-70.0) 85.8 % (16.0-70.0) Lymphocytes (%) (Auto) 8.7 % (9.0-44.0) 11.6 % (9.0-44.0) 7.6 % (9.0-44.0) Monocytes (%) (Auto) 7.1 % (0.0-8.0) 7.6 % (0.0-8.0) 5.3 % (0.0-8.0) Eosinophils (%) (Auto) 1.2 % (0.0-4.0) 1.1 % (0.0-4.0) 1.1 % (0.0-4.0) Basophils (%) (Auto) 0.4 % (0.0-2.0) 0.3 % (0.0-2.0) 0.2 % (0.0-2.0) Neutrophils # (Auto) 10.6 TH/MM3 (1.8-7.7) 11.2 TH/MM3 (1.8-7.7) 12.3 TH/MM3 (1.8-7.7) Lymphocytes # (Auto) 1.1 TH/MM3 (1.0-4.8) 1.6 TH/MM3 (1.0-4.8) 1.1 TH/MM3 (1.0-4.8) Monocytes # (Auto) 0.9 TH/MM3 (0-0.9) 1.1 TH/MM3 (0-0.9) 0.8 TH/MM3 (0-0.9) Eosinophils # (Auto) 0.2 TH/MM3 (0-0.4) 0.2 TH/MM3 (0-0.4) 0.2 TH/MM3 (0-0.4) Basophils # (Auto) 0.0 TH/MM3 (0-0.2) 0.0 TH/MM3 (0-0.2) 0.0 TH/MM3 (0-0.2) CBC Comment AUTO DIFF AUTO DIFF DIFF FINAL Differential Total Cells Counted 100 100 Neutrophils % (Manual) 87 % (16-70) 74 % (16-70) Band Neutrophils % 1 % (0-6) 8 % (0-6) Lymphocytes % 5 % (9-44) 11 % (9-44) Monocytes % 5 % (0-8) 6 % (0-8) Basophils % 1 % (0-2) Neutrophils # (Manual) 11.4 TH/MM3 (1.8-7.7) 11.7 TH/MM3 (1.8-7.7) Myelocytes 1 % (0-0) 1 % (0-0) Differential Comment FINAL DIFF MANUAL FINAL DIFF MANUAL Platelet Estimate NORMAL (NORMAL) NORMAL (NORMAL) Platelet Morphology Comment NORMAL (NORMAL) NORMAL (NORMAL) Red Cell Morphology Comment NORMAL (NORMAL) Blood Urea Nitrogen 46 MG/DL (7-18) 36 MG/DL (7-18) 41 MG/DL (7-18) Creatinine 6.31 MG/DL (0.60-1.30) 5.09 MG/DL (0.60-1.30) 5.59 MG/DL (0.60-1.30) Random Glucose 217 MG/DL (74-106) 120 MG/DL (74-106) 133 MG/DL (74-106) Total Protein 5.4 GM/DL (6.4-8.2) 5.2 GM/DL (6.4-8.2) 5.2 GM/DL (6.4-8.2) Albumin 1.8 GM/DL (3.4-5.0) 1.8 GM/DL (3.4-5.0) 1.8 GM/DL (3.4-5.0) Calcium Level 7.8 MG/DL (8.5-10.1) 8.0 MG/DL (8.5-10.1) 7.9 MG/DL (8.5-10.1) Phosphorus Level 5.3 MG/DL (2.5-4.9) Magnesium Level 2.1 MG/DL (1.5-2.5) Alkaline Phosphatase 146 U/L (45-117) 117 U/L (45-117) 104 U/L (45-117) Aspartate Amino Transf (AST/SGOT) 108 U/L (15-37) 67 U/L (15-37) 44 U/L (15-37) Alanine Aminotransferase (ALT/SGPT) 33 U/L (12-78) 27 U/L (12-78) 21 U/L (12-78) Total Bilirubin 0.5 MG/DL (0.2-1.0) 0.3 MG/DL (0.2-1.0) 0.4 MG/DL (0.2-1.0) Sodium Level 142 MEQ/L (136-145) 142 MEQ/L (136-145) 143 MEQ/L (136-145) Potassium Level 4.3 MEQ/L (3.5-5.1) 3.6 MEQ/L (3.5-5.1) 3.6 MEQ/L (3.5-5.1) Chloride Level 104 MEQ/L (98-107) 103 MEQ/L (98-107) 104 MEQ/L (98-107) Carbon Dioxide Level 24.8 MEQ/L (21.0-32.0) 28.4 MEQ/L (21.0-32.0) 26.2 MEQ/L (21.0-32.0) Anion Gap 13 MEQ/L (5-15) 11 MEQ/L (5-15) 13 MEQ/L (5-15) Estimat Glomerular Filtration Rate 9 ML/MIN (>89) 11 ML/MIN (>89) 10 ML/MIN (>89) Total Creatine Kinase 2990 U/L (39-308) 1278 U/L (39-308) 607 U/L (39-308) Creatine Kinase MB 3.5 NG/ML (0.5-3.6) 3.0 NG/ML (0.5-3.6) 2.6 NG/ML (0.5-3.6) Creatine Kinase MB % 0.1 % (0.0-4.0) 0.2 % (0.0-4.0) 0.4 % (0.0-4.0) Ammonia LESS THAN 10 MCMOL/L Nucleated Red Blood Cells 1 /100 WBC (0-0) Polychromasia 2.3 % (0.0-1.9) Rouleau PRESENT (NORMAL) . (Marily Lopez) Result Diagram: 05/02/17 0840 05/02/17 0840 Microbiology Microbiology Date/Time Source Procedure Growth Status 04/22/17 17:25 Urine Catheterized Urine Urine Culture - Final Klebsiella Pneumoniae Group B Beta Strep Complete . Imaging Last Impressions Catheter Placement X-Ray 05/01/17 0000 Signed Impressions: Service Date/Time: April 11:25 - CONCLUSION: Uncomplicated PermaCath placement as above. Dmitriy Kumar MD Liver Ultrasound 04/24/17 0000 Signed Impressions: Service Date/Time: April 15:02 - CONCLUSION: 1. Mild hepatomegaly with increased hepatic echogenicity likely reflecting hepatic steatosis versus medical liver disease. 2. Cholelithiasis with mildly distended gallbladder and gallbladder wall thickening which may be chronic in etiology. Further evaluation may be performed with HIDA scan if there is significant clinical concern regarding acute cholecystitis. Dmitriy Kumar MD Chest X-Ray 04/24/17 0000 Signed Impressions: Service Date/Time: April 08:20 - CONCLUSION: Right internal jugular vas catheter and left internal jugular central line are in good positions with their tips at the junction of the superior vena cava and right atrium. No pneumothorax is noted. Red Toro MD Renal Ultrasound 04/22/17 0000 Signed Impressions: Service Date/Time: Saturday, April 22, 2017 21:27 - CONCLUSION: No obstructive uropathy or other acute abnormality. Incidentally seen benign-appearing left renal cyst. Ash Mason MD Head CT 04/21/17 0000 Signed Impressions: Service Date/Time: Friday, April 21, 2017 18:29 - CONCLUSION: Normal noncontrast head CT. Ash Mason MD . Procedures 04/23 thrombectomy and right lower leg fasciotomy Central line placement 04/24-Vas-Cath placement [id number] amputation of right lower extremity 04/28-revision of above-knee amputation of right lower extremity, closure . (Marily Lopez) Assessment and Plan Disease Oriented Problem List: (1) Acute renal failure (2) CKD (chronic kidney disease) stage 3, GFR 30-59 ml/min (3) DKA (diabetic ketoacidoses) (4) Diabetes mellitus (5) Transaminitis (6) Compartment syndrome (7) Hypernatremia (8) Hyperammonemia Symptom Scale: (1) Pain 0-10 Scale: Unable to quantify Comment: Recent Right AKA. . (2) Debility 0-10 Scale: Unable to quantify (Recent Right AKA) Pertinent Non-Medical Issues Psychosocial:Patient is originally from [place]. He came to [place]. He got and moved to [place] with his of +25 years. 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 Patient has 2 adult children, a daughter Junior and son Dajuan. Patient lives with his . Spiritual: Patient is [place] Legal:Completed and signed [facility] Ethical issues impacting care: None identified at this time . Important Contacts Spouse-Mariann Lozano-[phone] Son-Morris Graff . Prognosis Mr. Loyola is a 67 years old male with a past medical history significant for coronary artery disease s/p CABG and 2 stent placement, myocardial infarction, peripheral arterial disease, diabetes mellitus, hypertension and hyperlipidemia. Patient was brought in on 04/21/17 by EMS with complaints of decreased appetite, decreased thirst for approximately a week. Clinical course complicated with worsening renal function, delirium and nonsalvageable lower extremity ischemia requiring amputation of right lower extremity. Given ongoing comorbidities, patient remains at high risk for further complications, deterioration and decline. . Code Status: No Code Plan PLAN: Legal decision maker: Patient is able to participate in medical decision making. Due to reported intermittent periods of delirium during this hospitalization, recommending medical decision making to be done in collaboration with patient`s spouse Mariann Lozano whom he also designated as his HCS or his son Nir Graff whom he designated as his alternate HCS. Goals: Comfort oriented, want rehabilitation but no aggressive resuscitation. CODE STATUS: DNR SYMPTOMS: * Pain: Recent right above knee amputation. Risk for phantom pain. Patient has Oxycodone 5mg -10mg q 4 hrs prn and Hydromorphone 0.2mg q 4 hrs prn. Sparingly needing prn medications. Patient states right leg causes pain when left in one position too long or when being removed. Reviewed asking for pain medicine before pain became uncontrolled. Continue assessing pain. Risk for phantom pain. Symptoms well controlled today. * Debility: Patient recently had above the knee amputation to his right lower extremity and is currently on hemodialysis. Physical therapy consulted, recommended PT and OT at Rehab. This may be a challenging time for patient given his other comorbidities and confusion. states she would like to take him home but is willing for short-term rehabilitation as recommended by PT. Jeff is following for possible [facility] bed admission when ready to be discharged. Palliative care will continue to follow the patient during hospital course as condition evolves, to assist patient/decision-maker with understanding of their medical conditions, weighing benefits/burdens of treatment options, for clarification of goals of treatment. Additionally will assist with any symptoms of palliative concern (Marily Lopez) Attestation To help prompt me to consider important information that might be impacting today's encounter and assessment, information from prior notes written by myself or my colleagues may have been "brought forward" into today's note. My signature on this note, however, is an attestation that I personally performed the exam, history, and/or decision-making noted today, and, unless otherwise indicated, the interactions with patient, family, and staff as well as the review of records all occurred today. I also attest that the listed assessment and stated plan reflect my best clinical judgment today based on the combination of historical information, prior notes, and today's exam/ interactions. When time spent is documented, it refers only to time spent today by the signer, or if indicated, combined time spent today by collaborating physician/nurse practitioner. . (Marily Lopez) Collaborating MD Comments Chart reviewed. Case discussed with palliative care GENERAL COUNSEL. Above PAUL note reviewed and I concur. . (Jason Buchanan MD) Marily Lopez May 02, 2017 16:36 Jason Buchanan MD May 18, 2017 14:31
[2017-05-02 16:55] LABS: BACTERIA, URINE OCC /hpf; BILIRUBIN, URINE NEG (NEG); BLOOD, URINE MOD (NEG); GLUCOSE,URINE 150 mg/dL (NEG); KETONE, URINE 40 mg/dL (NEG); NITRITE,URINE NEG (NEG); URINE COLOR YELLOW (YELLW/STRAW); URINE LEUKOCYTE ESTERASE LARGE (NEG); WHITE BLOOD CELL CLUMPS MANY
[2017-05-02] MEDS: cloNIDine HCL 0.1 MG TAB PO PRN (23:38)
[2017-05-03] MEDS: INSULIN ASPART SUPPLEMENTAL SCALE SQ SCH ×6 (00:19→21:00)
[2017-05-03 03:20] VITALS: BP 165/76; PULSE 93; RESP 16; TEMP 96.9; O2SAT 98
[2017-05-03] MEDS: CHLORHEXIDINE GLUCONATE 2 % 1 PACK (2 CLOTHS) TOP SCH (04:00)
[2017-05-03 04:26] LABS: AUTOMATED NEUTROPHIL # 13.9 TH/MM3 (1.8-7.7); BASOPHIL % 0.3 % (0.0-2.0); EOSINOPHIL # 0.1 TH/MM3 (0-0.4); EOSINOPHIL % 0.4 % (0.0-4.0); HEMATOCRIT 25.4 % (39.0-51.0); HEMOGLOBIN 8.6 GM/DL (13.0-17.0); LYMPH % 9.8 % (9.0-44.0); LYMPHOCYTE # 1.6 TH/MM3 (1.0-4.8); MEAN CELL VOLUME 94.7 FL (80.0-100.0); MEAN CORPUSCULAR HEMOGLOBIN 32.1 PG (27.0-34.0); MEAN CORPUSCULAR HGB CONC 33.8 % (32.0-36.0); MEAN PLATELET VOLUME 7.6 FL (7.0-11.0); MONO % 5.9 % (0.0-8.0); NEUT % 83.6 % (16.0-70.0); PLATELET COUNT 175 TH/MM3 (150-450); RED BLOOD COUNT 2.68 MIL/MM3 (4.50-5.90); RED CELL DISTRIBUTION WIDTH 14.9 % (11.6-17.2); WHITE BLOOD COUNT 16.6 TH/MM3 (4.0-11.0)
[2017-05-03 04:51] LABS: ALKALINE PHOSPHATASE 103 U/L (45-117); ALT (GPT) 23 U/L (12-78); AST (GOT) 40 U/L (15-37); BICARBONATE 31.5 MEQ/L (21.0-32.0); BLOOD UREA NITROGEN 29 MG/DL (7-18); CHLORIDE 103 MEQ/L (98-107); CREATININE 4.51 MG/DL (0.60-1.30); GLOMERULAR FILTRATION RATE 13 ML/MIN (>89); GLUCOSE,RANDOM 110 MG/DL (74-106); SODIUM (NA) 143 MEQ/L (136-145); TOTAL BILIRUBIN ADULT 0.3 MG/DL (0.2-1.0); TOTAL PROTEIN 5.7 GM/DL (6.4-8.2)
[2017-05-03 06:03] LABS: CORRECTED NUCLEATED RBC 4 /100 WBC (0-0); LYMPHOCYTES 5 % (9-44); MONOCYTES 5 % (0-8); MYELOCYTES 1 % (0-0); NEUTROPHIL # MANUAL DIFF 14.9 TH/MM3 (1.8-7.7); NUCLEATED RED BLOOD CELL 4 (0-0); POLYS (SEG NEUTROPHILS) 89 % (16-70)
[2017-05-03 06:04] LABS: ROULEAUX PRESENT (NORMAL)
[2017-05-03 08:00] VITALS: BP_SYST 107; BP_SYST 161; BP_DIAS 61; BP_DIAS 69; PULSE 80; RESP 18; TEMP 96.1; TEMP 98.4; O2SAT 97; O2SAT 98
[2017-05-03] MEDS: SODIUM CHLORIDE 0.9% FLUSH 10 ML FLUSH IV FLUSH SCH ×2 (09:00→22:55)
[2017-05-03] MEDS: amLODIPine BESYLATE 5 MG TAB PO SCH (09:34)
[2017-05-03] MEDS: INSULIN DETEMIR 100 UNITS/ML VIAL SQ SCH ×2 (09:35→21:00)
--- NOTE | 2017-05-03 09:37 | HHI.FPPN ---
Subjective Remarks No acute events overnight. Patient was not able to urinate on his own after removing the boyer yesterday and required an in and out cath overnight. Patient complains of dysuria, otherwise no CP, SOB, N/V, extremity pain. He is frustrated about having difficulty contacting his this morning. Objective Vitals Vital Signs Date Time Temp Pulse Resp B/P (MAP) Pulse Ox O2 Delivery O2 Flow Rate FiO2 05/03/17 08:00 96.1 80 18 107/61 (76) 97 05/03/17 03:20 96.9 93 16 165/76 (105) 98 05/02/17 23:32 97.7 93 16 198/79 (118) 100 05/02/17 20:00 98.3 96 17 163/84 (110) 100 05/02/17 20:00 98.3 96 17 163/84 (110) 100 05/02/17 19:00 100 Room Air 05/02/17 16:00 97.8 86 18 161/81 (107) 96 05/02/17 12:00 97.8 98 18 168/75 (106) 96 I/O 05/02/17 05/02/17 05/02/17 05/03/17 05/03/17 05/03/17 07:00 15:00 23:00 07:00 15:00 23:00 Intake Total 410 ml 480 ml 360 ml Output Total 450 ml 500 ml Balance 410 ml 30 ml -140 ml Intake Oral 480 ml 360 ml Packed Cells 330 ml Blood Product IV Normal Saline Flush 80 ml Output Urine Total 450 ml 500 ml Bladder Scan Volume Amount 358 ml # Voids 1 # Bowel Movements 1 0 Result Diagram: 05/03/17 0413 05/03/17 0413 Objective Remarks GENERAL: This is a cachectic male, lying in bed in [facility]. SKIN: No rashes, ecchymoses or lesions outside of RLE as noted below. Perm cath in place with no draining or erythema noted. Rolled patient to do full skin exam and did not note any ulcers or wounds on patients back/sacral area. HEAD: Atraumatic. Normocephalic. EYES: Pupils equal round and reactive. Extraocular motions intact. ENT: Nose without bleeding or drainage. Airway patent. NECK: Trachea midline. No JVD or lymphadenopathy. Supple, nontender, no meningeal signs. CARDIOVASCULAR: Regular rate and rhythm without murmurs, gallops, or rubs. RESPIRATORY: Clear to auscultation. Breath sounds equal bilaterally. No wheezes , rales, or rhonchi. GASTROINTESTINAL: Abdomen soft, non-tender, nondistended. No hepato-splenomegaly , or palpable masses. No guarding. MUSCULOSKELETAL: RLE with [id number] amputation, no drain, with stitches intact. No erythema or drainage noted at surgical site. Also sutures appreciated in the R inguinal area with no drainage or erythema. Skin is warm above level of amputation. LLE warm to touch, +palpated left DP pulse NEUROLOGICAL: Cranial nerves grossly intact. Moving LLE and upper extremities spontaneously. Answers questions appropriately today. Line: Central Venous Catheter Side: Right Location: Jugular A/P Assessment and Plan Patient is 67 year old Male with PMHx of HTN and DM presented to ED via [facility]AC due to 1 wk hx of decreased po intake. Patient found to be altered, hypertensive with blood glucose greater than 900, elevated anion gap of 29, beta hydroxy of 11.9. Patient admitted to management of DKA. Transitioned to SQ insulin on 04/22. Of note, communication with the patient has been difficult at times. Caregivers japanese interpreter was used on 04/23 as patient is primarily Chinese speaking, and the japanese interpreter could not understand the patient. Nursing staff and medical team has been able to communicate with the patient in [place] successfully at times but he occasionally slurs his speech/is not understandable. On 04/23 patient was found to have significant transaminitis as well as worsening renal function. Nephrology, GI consulted. A discussion was had with the patient's on 04/23 and she stated that all of the patient's symptoms (including his R leg stiffness/loss of function) were new and that he had been found down for up to 5 hours before coming to the ER. Vascular was consulted at that time and it was noted that patient had no palpable pulses, either femoral, popliteal, dorsalis pedis or post tibial. Ultrasound revealed complete occlusion of blood flow to the R leg and patient was immediately taken to the OR for R leg clot fasciotomy thrombectomy. On 04/24 patient was found to have worsening renal function with Creatinine of 4.85 and a Potassium of 7.1. R int jugular vascular cath was placed and patient underwent HD at that time. Labs were indicative of rhabdomyolysis. Right above knee amputation with wound vac was performed on 04/24. Received one blood transfusion following the procedure. S/P closure of amputation site on 04/27 with drain removal 04/29. Getting HD MWF. Unclear clinical course ahead. Palliative care consulted 04/29 to further elucidate goals of care, appreciate recommendations. PermCath placed 05/01 for continued outpatient dialysis. Case management working on rehab discharge planning, possibly to [facility] (if [facility] bed available). Critical Care, Vascular, and Nephrology managing, appreciate assistance in this patient's care. Critical Care signed off 04/28. * Neuro: intermittent AMS resolved, Dementia * Patient's states that his baseline is totally normal. Suspect possible CVA prior to ED arrival. Also suspecting Dementia vs delirium as patient continues to express lack of knowledge of his amputation at times * Last normal appears to be 7AM on 04/21/2017 per * Orders for CVA workup initiated, but as patient has multiple problems currently requiring intensive treatment, several of these studies may be delayed. Brain MRI/MRA noncontrast held, Carotid US held due to jugular venous lines placed, echocardiogram ordered and overall unremarkable, PT/OT/speech evaluations. CT head negative in ED. Consider ordering MRI once stable * No previous CVA history * Lipid profile showing triglycerides 200, cholesterol 155, LDL 102, HDL 12.6, A1c 17.7 * Will initiate atorvastatin once liver function is stable, likely as outpt * Rehab at discharge * CV: Hx CABG remotely, Intermittent bradycardia, HTN, critical limb ischemia s/ p amputation * Continue telemetry * Echo 04/24 showing EF 60-65%, normal LV size, no noted wall motion abnormalities * HTN now being treated with amlodipine 5 mg daily * Vascular surgery performed R leg clot fasciotomy thrombectomy on 04/23. * Right above knee amputation with wound vac was performed on 04/24. * Amputation closure performed 04/26 * Hypertensive to 198/79 overnight - isolated. 107/61 this morning, will monitor and consider increasing Amlodipine to 10mg if persistently hypertensive * GI: acute transaminitis, difficulty swallowing, hyperammonemia * Transaminitis resolving. Unclear etiology as LFTs were normal on admission, suspecting rhabdomyolysis as likely cause. * Was given Ofirmev x 1 on 04/22. Tylenol level normal * Patient is asymptomatic, no jaundice or alcoholic history * Transaminases 3000 on 04/24. Bilirubin normal. Trending down * CK improving but still markedly elevated. Normal on admission * US Liver on 04/24 showed findings consistent with hepatic steatosis versus medical liver disease. Cholelithiasis noted. * Gastroenterology signed off on 04/24. * Hepatitis panel negative. * Hyperammonemia of 75 and 04/24 - given Rifaximin 500 g BID with d/c 05/02. Ammonia normal. * Speech therapy evaluated and now cleared for solid diet as of 04/29. * FEN/RENAL: acute renal failure complicated by chronic kidney disease, hypoalbuminemia, hypocalcemia, rhabdomyolysis * Creatinine 5.09 on 05/01 after dialysis on 04/30 with GFR 11 * Hypernatremia resolved * Hyperkalemia resolved * Hypocalcemia improved * Urine prot/creat ratio 5.06, very elevated, suspect diabetic nephropathy * Renal US normal * Nephrology consulted, appreciate recommendations * Hemodialysis dependent initiated 04/24, now scheduled MWF. UOP 11 ml/kg/hr, inadequate * Will likely need HD for 6 weeks, nephrology will set this up as outpt * DCd Boyer on 05/02 - required straight cath overnight due to inability to urinate - still unable to urinate on 05/03 so will straight cath again and start Flomax * ID: UTI complicated by male gender, race, urethral injury, Leukocytosis 04/29 * Leukocytosis on admission resolved but recurred 04/29, will monitor. WBC trending up to 16.6 on 05/03 - ordering CXR, blood cultures, UA on 05/02 showing large leukocyte esterase, 179 WBC - will discuss antibiotic options with nephrology and await cultures * VS not showing signs of systemic infection * CXR on admission normal * Patient removed catheter traumatically on 04/21/2017 * Catheter replaced and in place since admission * Given renal and liver disease, consulted Pharmacist building consultant who recommended Levaquin, 750mg IV q 24hr, then 500mg IV q 48 started on 04/23. Will continue for 10 day course (stop date 05/02). Dosing was renally adjusted due to ESRD * Urine culture growing Klebsiella, Group B strep - pansensitive * Lactic acid 1.1 on 04/25 * CRP 21.10 on 04/24 * HEME: rhabdomyolysis, acute blood loss anemia, anemia of chronic disease * Goal Hgb > 7 * Nephrology started Epoetin 10,000 units with dialysis * Urethral bleeding 2/ traumatic catheter removal resolved * Urine color significantly improved, and UOP improving * Status post 2 units of packed red blood cells following amputation on 04/24 * Monitor CBC daily, PRBCs for Hgb <7 or sx * Hgb 6.5 on 05/01 --> S/P one unit PRBCs with f/u Hgb 8.0, stable on 05/03 * Total creatinine kinase trending down, to continue monitoring as outpatient with nephrology * ENDO: Diabetes * Hyperglycemia: HHS on admission, resolved on 04/22 but insulin drip resumed on 04/24. Discontinued insulin drip and started SSI on 04/25 * A1c 17.7 * para educator, outreach clinician consulted * TSH wnl * Patient now cleared for regular diet, Levemir 4 units BID with low-dose SSI PRN * PROPH/LINES: * Heparin 5000U sq q12h, held for PermCath, restarted on 05/03 * PermCath 05/01/17 Discharge Planning Anticipate [facility]) with dialysis, rehab, medication administration. Case Management consulted for SNF placement DW Dr. Bernard, SDW Dr. Cheung Problem List: (1) Hyperammonemia ICD Codes: E72.20 - Disorder of urea cycle metabolism, unspecified Status: Acute (2) Compartment syndrome ICD Codes: T79.A0XA - Compartment syndrome, unspecified, initial encounter Status: Acute (3) Diabetes mellitus ICD Codes: E11.9 - Diabetes mellitus Status: Chronic (4) Hypertension ICD Codes: I10 - Hypertension Status: Acute (5) Acute renal failure ICD Codes: N17.9 - Acute kidney failure, unspecified Status: Acute (6) Hypernatremia ICD Codes: E87.0 - Hyperosmolality and hypernatremia (7) Hyperkalemia ICD Codes: E87.5 - Hyperkalemia Status: Acute (8) UTI (urinary tract infection) ICD Codes: N39.0 - Urinary tract infection, site not specified Status: Acute (9) Transaminitis ICD Codes: R74.0 - Nonspecific elevation of levels of transaminase and lactic acid dehydrogenase [LDH] Problem Qualifiers (1) Acute renal failure: Qualified Codes: N17.9 - Acute kidney failure, unspecified (2) UTI (urinary tract infection): Qualified Codes: N10 - Acute pyelonephritis Mango Cheung MD R1 May 03, 2017 09:37
--- NOTE | 2017-05-03 09:55 | RADRPT ---
EXAM DATE/TIME: 05/03/2017 09:37 [facility] COMPARISON: CHEST PA & LAT, July 11, 2010, 12:07. INDICATIONS : Shortness of breath. MEDICAL HISTORY : Hypertension. Cardiovascular disease. Diabetes. SURGICAL HISTORY : CABG. ENCOUNTER: Initial ACUITY: 1 day PAIN SCORE: 0/10 LOCATION: Bilateral chest FINDINGS: Right internal jugular tunneled dialysis catheter has its tips at the junction of the superior vena c telly and right atrium. No pneumothorax is noted. Median sternotomy wires are noted status post cardiac surgery. The lungs are clear. No pulmonary vascular congestion is noted. CONCLUSION: No acute cardiopulmonary disease. Red Toro MD on May 03, 2017 at 9:51 Board Certified Radiologist. This report was verified electronically.
--- NOTE | 2017-05-03 11:51 | HHI.NPPN ---
Subjective History of Present Illness 67 year old with Hypertension,DKA, DM, ARF Additional Remarks complaints about s his stay need a bath Objective Data Data Vital Signs Date Time Temp Pulse Resp B/P (MAP) Pulse Ox O2 Delivery O2 Flow Rate FiO2 05/03/17 08:00 96.1 80 18 107/61 (76) 97 05/03/17 07:00 Room Air 05/03/17 03:20 96.9 93 16 165/76 (105) 98 05/02/17 23:32 97.7 93 16 198/79 (118) 100 05/02/17 20:00 98.3 96 17 163/84 (110) 100 05/02/17 20:00 98.3 96 17 163/84 (110) 100 05/02/17 19:00 100 Room Air 05/02/17 16:00 97.8 86 18 161/81 (107) 96 05/02/17 12:00 97.8 98 18 168/75 (106) 96 -: 05/03/17 0413 05/03/17 0413 Microbiology 05/02/17 Urine Culture - Preliminary, Resulted Yeast-Id To Follow Physical Exam General Appearance: Well Developed, Well Nourished Neck Neck Exam: Neck Supple Pulmonary Resp Exam: Clear Bilaterally, Breath Sounds Equal Cardiology CV Exam: Regular, Normal Sinus Rhythm Gastrointestinal/Abdomen GI Exam: Soft, Non-Tender, Bowel Sounds Present Extremeties Extremities Exam: Moderate Edema Extremeties Remarks Rt AKA Neurologic Neuro Exam: Alert Assessment/Plan Problem List: (1) Acute renal failure ICD Codes: N17.9 - Acute kidney failure, unspecified Status: Acute Plan: Patient has chronic kidney disease and acute renal failure with rhabdomyolysis creatinine 4.53 -> 5.9 -> 7.2 -> 5.3 -> 6.3->5.09 -> 5.5 ->4.5 UOP lower Remains HD dependent. On HD MWF - HD done earlier stable PermCath placed ARF due to Rhabdo will wait [address] AVF he may transfer to rehab receive PRBC as Hb low has high WBC d/w residents , wait to see if UA it is showing josselyn treat that Right lower leg ischemia now status post right AKA On Epogen for anemia - transfuse as needed. (2) CKD (chronic kidney disease) stage 3, GFR 30-59 ml/min ICD Codes: N18.3 - Chronic kidney disease, stage 3 (moderate) Status: Chronic Plan: kidney ultrasound left renal cyst (3) Diabetes ICD Codes: E11.9 - Type 2 diabetes mellitus without complications Status: Chronic Plan: History of DKA continue to monitor (4) Hypertension ICD Codes: I10 - Hypertension Status: Acute Plan: BP stable (5) DKA (diabetic ketoacidoses) ICD Codes: E13.10 - Other specified diabetes mellitus with ketoacidosis without coma Status: Acute Plan: Resolved (6) Hypernatremia ICD Codes: E87.0 - Hyperosmolality and hypernatremia Plan: stable Problem Qualifiers (1) Acute renal failure: Qualified Codes: N17.9 - Acute kidney failure, unspecified Natacha Suarez MD May 03, 2017 11:51
[2017-05-03 12:00] VITALS: BP_SYST 170; BP_SYST 98; BP_DIAS 54; BP_DIAS 70; PULSE 64; PULSE 95; RESP 18; TEMP 96.6; TEMP 98.1; O2SAT 97; O2SAT 99
[2017-05-03] MEDS ORDERED: FLUCONAZOLE 100 MG TAB PO ONE (12:00)
[2017-05-03] MEDS: HEPARIN SODIUM - SQ 10,000 UNITS/ML VIAL SQ SCH ×2 (13:03→22:54)
[2017-05-03 14:00] VITALS: BP 168/79; PULSE 83; RESP 18; TEMP 98.2; O2SAT 99
[2017-05-03 16:00] VITALS: BP 168/79; PULSE 83; RESP 18; TEMP 98.2; O2SAT 99
[2017-05-03 20:00] VITALS: BP 168/79; PULSE 93; RESP 18; TEMP 98.8; O2SAT 97
[2017-05-03] MEDS: TAMSULOSIN HCL 0.4 MG CAP PO SCH (22:53)
[2017-05-04] VITALS (7 sets, daily range): BP systolic 140–178; BP diastolic 63–77; PULSE 77–99; RESP 17–18; TEMP 97.6–99.6; O2SAT 94–99
[2017-05-04] MEDS: INSULIN ASPART SUPPLEMENTAL SCALE SQ SCH ×6 (00:25→21:26)
[2017-05-04] MEDS: CHLORHEXIDINE GLUCONATE 2 % 1 PACK (2 CLOTHS) TOP SCH (04:00)
[2017-05-04 08:14] LABS: AUTOMATED NEUTROPHIL # 9.2 TH/MM3 (1.8-7.7); BASOPHIL # 0.1 TH/MM3 (0-0.2); BASOPHIL % 0.8 % (0.0-2.0); EOSINOPHIL # 0.1 TH/MM3 (0-0.4); EOSINOPHIL % 1.2 % (0.0-4.0); HEMATOCRIT 23.5 % (39.0-51.0); LYMPH % 12.8 % (9.0-44.0); LYMPHOCYTE # 1.5 TH/MM3 (1.0-4.8); MEAN CELL VOLUME 94.8 FL (80.0-100.0); MEAN CORPUSCULAR HEMOGLOBIN 32.2 PG (27.0-34.0); MEAN CORPUSCULAR HGB CONC 33.9 % (32.0-36.0); MONO % 6.3 % (0.0-8.0); MONOCYTE # 0.7 TH/MM3 (0-0.9); NEUT % 78.9 % (16.0-70.0); PLATELET COUNT 204 TH/MM3 (150-450); RED BLOOD COUNT 2.48 MIL/MM3 (4.50-5.90); RED CELL DISTRIBUTION WIDTH 15.1 % (11.6-17.2); WHITE BLOOD COUNT 11.6 TH/MM3 (4.0-11.0)
[2017-05-04 08:54] LABS: ALBUMIN 1.8 GM/DL (3.4-5.0); ALKALINE PHOSPHATASE 86 U/L (45-117); ALT (GPT) 16 U/L (12-78); AST (GOT) 28 U/L (15-37); BICARBONATE 25.8 MEQ/L (21.0-32.0); BLOOD UREA NITROGEN 40 MG/DL (7-18); CHLORIDE 103 MEQ/L (98-107); CREATININE 5.35 MG/DL (0.60-1.30); GLOMERULAR FILTRATION RATE 11 ML/MIN (>89); GLUCOSE,RANDOM 114 MG/DL (74-106); SODIUM (NA) 140 MEQ/L (136-145); TOTAL BILIRUBIN ADULT 0.3 MG/DL (0.2-1.0); TOTAL PROTEIN 5.4 GM/DL (6.4-8.2)
[2017-05-04] MEDS: FLUCONAZOLE 100 MG TAB PO SCH (09:25)
[2017-05-04] MEDS: SODIUM CHLORIDE 0.9% FLUSH 10 ML FLUSH IV FLUSH SCH ×2 (09:25→21:26)
[2017-05-04] MEDS: INSULIN DETEMIR 100 UNITS/ML VIAL SQ SCH ×2 (09:31→21:26)
--- NOTE | 2017-05-04 12:00 | HHI.FPPN ---
Subjective Remarks No acute events overnight. Patient is happier this morning and states he feels well. He had some discomfort overnight as he attempted a trial off the boyer but continued to have urinary retention. Boyer placed prior to the interview and he feels much better. Denies CP, SOB, N/V, surgical site pain Objective Vitals Vital Signs Date Time Temp Pulse Resp B/P (MAP) Pulse Ox O2 Delivery O2 Flow Rate FiO2 05/04/17 08:00 98.6 85 18 144/64 (90) 94 05/04/17 06:34 140/63 (88) 05/04/17 00:00 98.9 77 17 178/77 (110) 98 05/03/17 20:00 98.8 93 18 168/79 (108) 97 05/03/17 19:00 98 05/03/17 16:00 98.2 83 18 168/79 (108) 99 05/03/17 12:00 98.1 95 18 170/70 (103) 99 I/O 05/03/17 05/03/17 05/03/17 05/04/17 05/04/17 05/04/17 07:00 15:00 23:00 07:00 15:00 23:00 Intake Total 360 ml 760 ml 360 ml Output Total 500 ml Balance -140 ml 760 ml 360 ml Intake Oral 360 ml 760 ml 360 ml Output Urine Total 500 ml Bladder Scan Volume Amount 358 ml # Voids 1 0 # Bowel Movements 0 3 0 Result Diagram: 05/04/17 0758 05/04/17 0750 Objective Remarks GENERAL: This is a cachectic male, lying in bed in [facility]. SKIN: No rashes, ecchymoses or lesions outside of RLE as noted below. Perm cath in place with no draining or erythema noted. Rolled patient to do full skin exam and did not note any ulcers or wounds on patients back/sacral area. HEAD: Atraumatic. Normocephalic. EYES: Pupils equal round and reactive. Extraocular motions intact. ENT: Nose without bleeding or drainage. Airway patent. NECK: Trachea midline. No JVD or lymphadenopathy. Supple, nontender, no meningeal signs. CARDIOVASCULAR: Regular rate and rhythm without murmurs, gallops, or rubs. RESPIRATORY: Clear to auscultation. Breath sounds equal bilaterally. No wheezes , rales, or rhonchi. GASTROINTESTINAL: Abdomen soft, non-tender, nondistended. No hepato-splenomegaly , or palpable masses. No guarding. MUSCULOSKELETAL: RLE with [id number] amputation, no drain, with stitches intact. No erythema or drainage noted at surgical site. Also sutures appreciated in the R inguinal area with no drainage or erythema. Skin is warm above level of amputation. LLE warm to touch, +palpated left DP pulse : Boyer in place with no erythema, discharge appreciated. NEUROLOGICAL: Cranial nerves grossly intact. Moving LLE and upper extremities spontaneously. Answers questions appropriately. Line: Central Venous Catheter Side: Right Location: Jugular A/P Assessment and Plan Patient is 67 year old Male with PMHx of HTN and DM presented to ED via EVAC due to 1 wk hx of decreased po intake. Patient found to be altered, hypertensive with blood glucose greater than 900, elevated anion gap of 29, beta hydroxy of 11.9. Patient admitted to management of DKA. Transitioned to SQ insulin on 04/22. Of note, communication with the patient has been difficult at times. wedgies parts interpreter was used on 04/23 as patient is primarily Chinese speaking, and the parts interpreter could not understand the patient. Nursing staff and medical team has been able to communicate with the patient in Nepali successfully at times but he occasionally slurs his speech/is not understandable. On 04/23 patient was found to have significant transaminitis as well as worsening renal function. Nephrology, GI consulted. A discussion was had with the patient's on 04/23 and she stated that all of the patient's symptoms (including his R leg stiffness/loss of function) were new and that he had been found down for up to 5 hours before coming to the ER. Vascular was consulted at that time and it was noted that patient had no palpable pulses, either femoral, popliteal, dorsalis pedis or post tibial. Ultrasound revealed complete occlusion of blood flow to the R leg and patient was immediately taken to the OR for R leg clot fasciotomy thrombectomy. On 04/24 patient was found to have worsening renal function with Creatinine of 4.85 and a Potassium of 7.1. R int jugular vascular cath was placed and patient underwent HD at that time. Labs were indicative of rhabdomyolysis. Right above knee amputation with wound vac was performed on 04/24. Received one blood transfusion following the procedure. S/P closure of amputation site on 04/27 with drain removal 04/29. Getting HD MWF. Unclear clinical course ahead. Palliative care consulted 04/29 to further elucidate goals of care, appreciate recommendations. PermCath placed 05/01 for continued outpatient dialysis. Case management working on rehab discharge planning, [facility] Nephrology managing, appreciate assistance in this patient's care. Critical Care signed off 04/28. * Neuro: intermittent AMS resolved, Dementia * Patient's states that his baseline is totally normal. Suspect possible CVA prior to ED arrival. Also suspecting Dementia vs delirium as patient continues to express lack of knowledge of his amputation at times * Last normal appears to be 7AM on 04/21/2017 per * Orders for CVA workup initiated, but as patient has multiple problems currently requiring intensive treatment, several of these studies may be delayed. Brain MRI/MRA noncontrast held, Carotid US held due to jugular venous lines placed, echocardiogram ordered and overall unremarkable, PT/OT/speech evaluations. CT head negative in ED. Consider ordering MRI once stable * No previous CVA history * Lipid profile showing triglycerides 200, cholesterol 155, LDL 102, HDL 12.6, A1c 17.7 * Will initiate atorvastatin once liver function is stable, likely as outpt * Rehab at discharge * CV: Hx CABG remotely, Intermittent bradycardia, HTN, critical limb ischemia s/ p amputation * Continue telemetry * Echo 04/24 showing EF 60-65%, normal LV size, no noted wall motion abnormalities * HTN now being treated with amlodipine 5 mg daily * Vascular surgery performed R leg clot fasciotomy thrombectomy on 04/23. * Right above knee amputation with wound vac was performed on 04/24. * Amputation closure performed 04/26 * Increasing Amlodipine to 10mg as patient was persistently hypertensive on . BP WNL on 05/04 * GI: acute transaminitis, difficulty swallowing, hyperammonemia * Transaminitis resolving. Unclear etiology as LFTs were normal on admission, suspecting rhabdomyolysis as likely cause. * Was given Ofirmev x 1 on 04/22. Tylenol level normal * Patient is asymptomatic, no jaundice or alcoholic history * Transaminases 3000 on 04/24. Bilirubin normal. Trending down * CK improving but still markedly elevated. Normal on admission * US Liver on 04/24 showed findings consistent with hepatic steatosis versus medical liver disease. Cholelithiasis noted. * Gastroenterology signed off on 04/24. * Hepatitis panel negative. * Hyperammonemia of 75 and 04/24 - given Rifaximin 500 g BID with d/c 05/02. Ammonia normal. * Speech therapy evaluated and now cleared for solid diet as of 04/29. * FEN/RENAL: acute renal failure complicated by chronic kidney disease, hypoalbuminemia, hypocalcemia, rhabdomyolysis * Creatinine 5.09 on 05/01 after dialysis on 04/30 with GFR 11 * Hypernatremia resolved * Hyperkalemia resolved * Hypocalcemia improved * Urine prot/creat ratio 5.06, very elevated, suspect diabetic nephropathy * Renal US normal * Nephrology consulted, appreciate recommendations * Hemodialysis dependent initiated 04/24, now scheduled MWF. UOP 11 ml/kg/hr, inadequate * Will likely need HD for 6 weeks, nephrology will set this up as outpt * DCd Boyer on 05/02 - required straight cath over next 24 hours due to inability to urinate - started Flomax on 05/03. Still urinary retention on 05/04 so reordered Boyer and will try again in 5-7 days. * ID: UTI complicated by male gender, race, urethral injury, Leukocytosis 04/29 * Leukocytosis on admission resolved but recurred 04/29, will monitor. WBC trending up to 16.6 on 05/03 - CXR negative, blood cultures from 05/03 with NGTD, UA on 05/02 showing large leukocyte esterase, 179 WBC - grew Joslyn and started on Diflucan on 05/03. WBC improved to 11.6 on 05/04 * VS not showing signs of systemic infection * CXR on admission normal * Patient removed catheter traumatically on 04/21/2017 * Catheter replaced and in place since admission * Given renal and liver disease, consulted Pharmacist asset protection professional who recommended Levaquin, 750mg IV q 24hr, then 500mg IV q 48 started on 04/23. Will continue for 10 day course (stop date 05/02). Dosing was renally adjusted due to ESRD * Urine culture growing Klebsiella, Group B strep - pansensitive * Lactic acid 1.1 on 04/25 * CRP 21.10 on 04/24 * HEME: rhabdomyolysis, acute blood loss anemia, anemia of chronic disease * Goal Hgb > 7 * Nephrology started Epoetin 10,000 units with dialysis * Urethral bleeding 2/ traumatic catheter removal resolved * Urine color significantly improved, and UOP improving * Status post 2 units of packed red blood cells following amputation on 04/24 * Monitor CBC daily, PRBCs for Hgb <7 or sx * Hgb 6.5 on 05/01 --> S/P one unit PRBCs with f/u Hgb 8.0, stable through 05/04 * Total creatinine kinase trending down, to continue monitoring as outpatient with nephrology * ENDO: Diabetes * Hyperglycemia: HHS on admission, resolved on 04/22 but insulin drip resumed on 04/24. Discontinued insulin drip and started SSI on 04/25 * A1c 17.7 * conservation educator, central aisle cashier consulted * TSH wnl * Patient now cleared for regular diet, Increased Levemir to 7 units from 4 units on 05/03 * PROPH/LINES: * Heparin 5000U sq q12h, held for PermCath, restarted on 05/03 * PermCath 05/01/17 Discharge Planning Anticipate transition to shelter care facility (or SNF) with dialysis, rehab, medication administration. Case Management consulted for SNF placement DW Dr. Bernard, SDW Dr. Cheung Problem List: (1) Hyperammonemia ICD Codes: E72.20 - Disorder of urea cycle metabolism, unspecified Status: Acute (2) Compartment syndrome ICD Codes: T79.A0XA - Compartment syndrome, unspecified, initial encounter Status: Acute (3) Diabetes mellitus ICD Codes: E11.9 - Diabetes mellitus Status: Chronic (4) Hypertension ICD Codes: I10 - Hypertension Status: Acute (5) Acute renal failure ICD Codes: N17.9 - Acute kidney failure, unspecified Status: Acute (6) Hypernatremia ICD Codes: E87.0 - Hyperosmolality and hypernatremia (7) Hyperkalemia ICD Codes: E87.5 - Hyperkalemia Status: Acute (8) UTI (urinary tract infection) ICD Codes: N39.0 - Urinary tract infection, site not specified Status: Acute (9) Transaminitis ICD Codes: R74.0 - Nonspecific elevation of levels of transaminase and lactic acid dehydrogenase [LDH] Problem Qualifiers (1) Acute renal failure: Qualified Codes: N17.9 - Acute kidney failure, unspecified (2) UTI (urinary tract infection): Qualified Codes: N10 - Acute pyelonephritis Mango Cheung MD R1 May 04, 2017 12:00
--- NOTE | 2017-05-04 12:20 | HHI.NPPN ---
Subjective History of Present Illness 67 year old with Hypertension,DKA, DM, ARF Additional Remarks doing better Objective Data Data Vital Signs Date Time Temp Pulse Resp B/P (MAP) Pulse Ox O2 Delivery O2 Flow Rate FiO2 05/04/17 08:15 Room Air 05/04/17 08:00 98.6 85 18 144/64 (90) 94 05/04/17 06:34 140/63 (88) 05/04/17 00:00 98.9 77 17 178/77 (110) 98 05/03/17 20:00 98.8 93 18 168/79 (108) 97 05/03/17 19:00 98 05/03/17 16:00 98.2 83 18 168/79 (108) 99 -: 05/04/17 0758 05/04/17 0750 Microbiology 05/03/17 Aerobic Blood Culture - Preliminary, Resulted NO GROWTH IN 1 DAY 05/03/17 Anaerobic Blood Culture - Preliminary, Resulted NO GROWTH IN 1 DAY 05/03/17 Aerobic Blood Culture - Preliminary, Resulted NO GROWTH IN 1 DAY 05/03/17 Anaerobic Blood Culture - Preliminary, Resulted NO GROWTH IN 1 DAY Physical Exam General Appearance: Well Developed, Well Nourished Neck Neck Exam: Neck Supple Pulmonary Resp Exam: Clear Bilaterally, Breath Sounds Equal Cardiology CV Exam: Regular, Normal Sinus Rhythm Gastrointestinal/Abdomen GI Exam: Soft, Non-Tender, Bowel Sounds Present Extremeties Extremities Exam: Moderate Edema Extremeties Remarks Rt AKA Neurologic Neuro Exam: Alert Assessment/Plan Problem List: (1) Acute renal failure ICD Codes: N17.9 - Acute kidney failure, unspecified Status: Acute Plan: Patient has chronic kidney disease and acute renal failure with rhabdomyolysis creatinine 4.53 -> 5.9 -> 7.2 -> 5.3 -> 6.3->5.09 -> 5.5 ->4.5-> 5.3 UOP lower Remains HD dependent. On HD MWF - HD done earlier stable PermCath placed ARF due to Rhabdo will wait [address] AVF he may transfer to rehab on Diflucan Right lower leg ischemia now status post right AKA On Epogen for anemia - transfuse as needed. (2) CKD (chronic kidney disease) stage 3, GFR 30-59 ml/min ICD Codes: N18.3 - Chronic kidney disease, stage 3 (moderate) Status: Chronic Plan: kidney ultrasound left renal cyst (3) Diabetes ICD Codes: E11.9 - Type 2 diabetes mellitus without complications Status: Chronic Plan: History of DKA continue to monitor (4) Hypertension ICD Codes: I10 - Hypertension Status: Acute Plan: BP stable (5) DKA (diabetic ketoacidoses) ICD Codes: E13.10 - Other specified diabetes mellitus with ketoacidosis without coma Status: Acute Plan: Resolved (6) Hypernatremia ICD Codes: E87.0 - Hyperosmolality and hypernatremia Plan: stable Problem Qualifiers (1) Acute renal failure: Qualified Codes: N17.9 - Acute kidney failure, unspecified Natacha Suarez MD May 04, 2017 12:20
[2017-05-04] MEDS: HEPARIN SODIUM - SQ 10,000 UNITS/ML VIAL SQ SCH (12:56)
[2017-05-04 18:19] LABS: BACTERIA, URINE RARE /hpf; BILIRUBIN, URINE NEG (NEG); BLOOD, URINE MOD (NEG); GLUCOSE,URINE 300 mg/dL (NEG); KETONE, URINE NEG (NEG); NITRITE,URINE NEG (NEG); PH, URINE 7.5 (5.0-8.5); URINE COLOR LIGHT-YELLOW (YELLW/STRAW); URINE LEUKOCYTE ESTERASE LARGE (NEG); WHITE BLOOD CELL CLUMPS RARE
[2017-05-04] MEDS: TAMSULOSIN HCL 0.4 MG CAP PO SCH (21:25)
[2017-05-05] VITALS: BP 161/74; PULSE 88; RESP 16; TEMP 98.4; O2SAT 99
[2017-05-05] MEDS: HEPARIN SODIUM - SQ 10,000 UNITS/ML VIAL SQ SCH ×2 (00:10→12:46)
[2017-05-05] MEDS: INSULIN ASPART SUPPLEMENTAL SCALE SQ SCH ×6 (00:20→21:09)
[2017-05-05] MEDS: CHLORHEXIDINE GLUCONATE 2 % 1 PACK (2 CLOTHS) TOP SCH (01:46)
[2017-05-05 04:00] VITALS: BP 143/64; PULSE 90; RESP 16; TEMP 98.8; O2SAT 100
[2017-05-05 08:00] VITALS: BP 142/65; PULSE 91; RESP 17; TEMP 98.9; O2SAT 99
[2017-05-05 08:16] LABS: AUTOMATED NEUTROPHIL # 7.2 TH/MM3 (1.8-7.7); BASOPHIL % 0.5 % (0.0-2.0); EOSINOPHIL # 0.1 TH/MM3 (0-0.4); EOSINOPHIL % 0.8 % (0.0-4.0); HEMATOCRIT 24.2 % (39.0-51.0); HEMOGLOBIN 8.1 GM/DL (13.0-17.0); LYMPH % 15.2 % (9.0-44.0); LYMPHOCYTE # 1.4 TH/MM3 (1.0-4.8); MEAN CELL VOLUME 95.1 FL (80.0-100.0); MEAN CORPUSCULAR HEMOGLOBIN 31.9 PG (27.0-34.0); MEAN CORPUSCULAR HGB CONC 33.6 % (32.0-36.0); MONO % 6.3 % (0.0-8.0); MONOCYTE # 0.6 TH/MM3 (0-0.9); NEUT % 77.2 % (16.0-70.0); PLATELET COUNT 239 TH/MM3 (150-450); RED BLOOD COUNT 2.55 MIL/MM3 (4.50-5.90); RED CELL DISTRIBUTION WIDTH 15.4 % (11.6-17.2); WHITE BLOOD COUNT 9.4 TH/MM3 (4.0-11.0)
[2017-05-05] MEDS: ACETAMINOPHEN 325 MG TAB PO PRN ×2 (08:21→09:30)
[2017-05-05 08:39] LABS: ALBUMIN 2.1 GM/DL (3.4-5.0); ALT (GPT) 15 U/L (12-78); AST (GOT) 26 U/L (15-37); BLOOD UREA NITROGEN 41 MG/DL (7-18); CALCIUM 8.2 MG/DL (8.5-10.1); CHLORIDE 103 MEQ/L (98-107); CREATININE 5.47 MG/DL (0.60-1.30); GLOMERULAR FILTRATION RATE 10 ML/MIN (>89); GLUCOSE,RANDOM 83 MG/DL (74-106); SODIUM (NA) 141 MEQ/L (136-145)
[2017-05-05 08:42] LABS: ALKALINE PHOSPHATASE 86 U/L (45-117); TOTAL BILIRUBIN ADULT 0.4 MG/DL (0.2-1.0); TOTAL PROTEIN 5.7 GM/DL (6.4-8.2)
[2017-05-05] MEDS: SODIUM CHLORIDE 0.9% FLUSH 10 ML FLUSH IV FLUSH SCH ×2 (09:00→21:10)
[2017-05-05] MEDS: FLUCONAZOLE 100 MG TAB PO SCH (09:00)
[2017-05-05] MEDS: INSULIN DETEMIR 100 UNITS/ML VIAL SQ SCH ×2 (09:00→21:08)
--- NOTE | 2017-05-05 10:51 | HHI.NPPN ---
Subjective History of Present Illness 67 year old with Hypertension,DKA, DM, ARF Additional Remarks doing better Objective Data Data Vital Signs Date Time Temp Pulse Resp B/P (MAP) Pulse Ox O2 Delivery O2 Flow Rate FiO2 05/05/17 08:00 98.9 91 17 142/65 (90) 99 05/05/17 04:00 98.8 90 16 143/64 (90) 100 05/05/17 00:00 98.4 88 16 161/74 (103) 99 05/04/17 21:25 Room Air 05/04/17 20:00 97.6 99 17 173/77 (109) 98 05/04/17 16:00 98.6 88 18 151/71 (97) 99 05/04/17 12:00 99.6 84 18 156/68 (97) 95 -: 05/05/17 0610 05/05/17 0610 Microbiology 05/04/17 Urine Culture, Received Pending Physical Exam General Appearance: Well Developed, Well Nourished Neck Neck Exam: Neck Supple Pulmonary Resp Exam: Clear Bilaterally, Breath Sounds Equal Cardiology CV Exam: Regular, Normal Sinus Rhythm Gastrointestinal/Abdomen GI Exam: Soft, Non-Tender, Bowel Sounds Present Extremeties Extremities Exam: Moderate Edema Extremeties Remarks Rt AKA Neurologic Neuro Exam: Alert Assessment/Plan Problem List: (1) Acute renal failure ICD Codes: N17.9 - Acute kidney failure, unspecified Status: Acute Plan: Patient has chronic kidney disease and acute renal failure with rhabdomyolysis creatinine 4.53 -> 5.9 -> 7.2 -> 5.3 -> 6.3->5.09 -> 5.5 ->4.5-> 5.3->5.4 UOP lower Remains HD dependent. On HD MWF - seen during dialysis today UF 1 L tolerates it well PermCath placed ARF due to Rhabdo will wait [address] AVF he may transfer to rehab on Diflucan Right lower leg ischemia now status post right AKA On Epogen for anemia - transfuse as needed. (2) CKD (chronic kidney disease) stage 3, GFR 30-59 ml/min ICD Codes: N18.3 - Chronic kidney disease, stage 3 (moderate) Status: Chronic Plan: kidney ultrasound left renal cyst (3) Diabetes ICD Codes: E11.9 - Type 2 diabetes mellitus without complications Status: Chronic Plan: History of DKA continue to monitor (4) Hypertension ICD Codes: I10 - Hypertension Status: Acute Plan: BP stable (5) DKA (diabetic ketoacidoses) ICD Codes: E13.10 - Other specified diabetes mellitus with ketoacidosis without coma Status: Acute Plan: Resolved (6) Hypernatremia ICD Codes: E87.0 - Hyperosmolality and hypernatremia Status: Resolved Problem Qualifiers (1) Acute renal failure: Qualified Codes: N17.9 - Acute kidney failure, unspecified Natacha Suarez MD May 05, 2017 10:51
--- NOTE | 2017-05-05 11:11 | HHI.FPPN ---
Subjective Remarks Patient seen and examined this morning in dialysis. He has no complaints today. He denies chest pain, shortness of breath. He states he is a little bit hungry and dialysis nurse says that he can get a small snack. No hypoglycemia noted in his chart. Still pending discharge planning to SNF. Urology was consulted yesterday given urinary retention, Montalvo in place at this time Objective Vitals Vital Signs Date Time Temp Pulse Resp B/P (MAP) Pulse Ox O2 Delivery O2 Flow Rate FiO2 05/05/17 08:00 98.9 91 17 142/65 (90) 99 05/05/17 04:00 98.8 90 16 143/64 (90) 100 05/05/17 00:00 98.4 88 16 161/74 (103) 99 05/04/17 21:25 Room Air 05/04/17 20:00 97.6 99 17 173/77 (109) 98 05/04/17 16:00 98.6 88 18 151/71 (97) 99 05/04/17 12:00 99.6 84 18 156/68 (97) 95 I/O 05/04/17 05/04/17 05/04/17 05/05/17 05/05/17 05/05/17 07:00 15:00 23:00 07:00 15:00 23:00 Intake Total 360 ml 600 ml 900 ml Output Total 1000 ml 850 ml Balance 360 ml -400 ml 50 ml Intake Oral 360 ml 600 ml 900 ml Output Urine Total 1000 ml 850 ml # Voids 0 # Bowel Movements 0 1 Result Diagram: 05/05/17 0610 05/05/17 0610 Imaging Last Impressions Chest X-Ray 05/03/17 0000 Signed Impressions: Service Date/Time: Wednesday, May 03, 2017 09:37 - CONCLUSION: No acute cardiopulmonary disease. Red Toro MD Catheter Placement X-Ray 05/01/17 0000 Signed Impressions: Service Date/Time: April 11:25 - CONCLUSION: Uncomplicated PermaCath placement as above. Dmitriy Kumar MD Liver Ultrasound 04/24/17 0000 Signed Impressions: Service Date/Time: April 15:02 - CONCLUSION: 1. Mild hepatomegaly with increased hepatic echogenicity likely reflecting hepatic steatosis versus medical liver disease. 2. Cholelithiasis with mildly distended gallbladder and gallbladder wall thickening which may be chronic in etiology. Further evaluation may be performed with HIDA scan if there is significant clinical concern regarding acute cholecystitis. Dmitriy Kumar MD Renal Ultrasound 04/22/17 0000 Signed Impressions: Service Date/Time: Saturday, April 22, 2017 21:27 - CONCLUSION: No obstructive uropathy or other acute abnormality. Incidentally seen benign-appearing left renal cyst. Ash Mason MD Head CT 04/21/17 0000 Signed Impressions: Service Date/Time: Friday, April 21, 2017 18:29 - CONCLUSION: Normal noncontrast head CT. Ash Mason MD Objective Remarks GENERAL: This is a thin male, lying in bed in NAD. SKIN: No rashes, ecchymoses or lesions outside of RLE as noted below. Perm cath in place with no draining or erythema noted. Dialysis in process. HEAD: Atraumatic. Normocephalic. EYES: Pupils equal round and reactive. Extraocular motions intact. CARDIOVASCULAR: Regular rate and rhythm without murmurs, gallops, or rubs. RESPIRATORY: Clear to auscultation. Breath sounds equal bilaterally. No wheezes , rales, or rhonchi. GASTROINTESTINAL: Abdomen soft, non-tender, nondistended. No hepato-splenomegaly , or palpable masses. No guarding. MUSCULOSKELETAL: RLE with [id number] amputation, no drain, with stitches intact. No erythema or drainage noted at surgical site. Also sutures appreciated in the R inguinal area with no drainage or erythema. Skin is warm above level of amputation. LLE warm to touch, +palpated left DP pulse : Montalvo in place with no erythema, discharge appreciated. NEUROLOGICAL: Cranial nerves grossly intact. Moving LLE and upper extremities spontaneously. Answers questions appropriately. Medications and IVs Inpatient Medications Acetaminophen (Tylenol) 650 mg UNSCH PRN PO for headach, pain, temp > 101F Last administered on 05/05/17at 08:21; Start 04/24/17 at 07:00 Albumin Human 100 ml @ 60 mls/hr UNSCH PRN IV WITH DIALYSIS Last administered on 04/24/17at 09:22; Start 04/24/17 at 07:00 Albuterol Sulfate (Albuterol Neb) 2.5 mg ONCE ONCE NEB Last administered on at 06:50; Start 04/24/17 at 06:30; Stop 04/24/17 at 06:31; Status DC Amlodipine Besylate (Norvasc) 10 mg DAILY PO Last administered on 05/04/17at 09: 25; Start 05/04/17 at 09:00 Aspirin (Aspirin Chew) 162 mg DAILY PO ; Start 04/23/17 at 15:15; Stop 04/23/17 at 16:21; Status DC Calcium Chloride 1 gm/Dextrose 110 ml @ 110 mls/hr NOW ONCE IV ; Start at 06:45; Stop 04/24/17 at 06:45; Status DC Calcium Gluconate 1 gm/Dextrose 110 ml @ 110 mls/hr ONCE ONCE IV Last administered on 04/24/17at 07:35; Start 04/24/17 at 06:30; Stop 04/24/17 at 07:29 ; Status DC Calcium Gluconate 1 gm/Sodium Chloride 110 ml @ 110 mls/hr ONCE ONCE IV Last administered on 04/26/17at 12:35; Start 04/26/17 at 11:15; Stop 04/26/17 at 12:14 ; Status DC Calcium Gluconate 2 gm/Dextrose 120 ml @ 120 mls/hr ONCE ONCE IV Last administered on 04/23/17at 00:12; Start 04/23/17 at 23:30; Stop 04/24/17 at 00:29 ; Status DC Cefazolin Sodium (Ancef Inj) 2,000 mg ONCE ONCE IV ; Start 04/24/17 at 19:42; Stop 04/24/17 at 19:57; Status DC Cefazolin Sodium 2000 mg/Sodium Chloride 120 ml @ 240 mls/hr SHIPPING & RECEIVING LEAD IV Last administered on 05/01/17at 12:02; Start 04/30/17 at 14:30 Ceftriaxone Sodium 1000 mg/ Sodium Chloride 100 ml @ 200 mls/hr Q24H IV ; Start 04/23/17 at 15:00; Stop 04/23/17 at 15:12; Status DC Chlorhexidine Gluconate (Chlorhexidine 2% Cloth) 3 pack UNSCH PRN TOP HYGIENIC CARE; Start 04/21/17 at 21:15 Clonidine (Catapres) 0.1 mg UNSCH PRN PO for BP > 180/100 X 2 readings Last administered on 05/02/17at 23:38; Start 04/24/17 at 07:00 Desmopressin Acetate 5 mcg/ Sodium Chloride 51.25 ml @ 100 mls/hr ONCE ONCE IV ; Start 04/26/17 at 15:45; Stop 04/26/17 at 16:15; Status DC Dextrose (D50w (Vial) Inj) 50 ml UNSCH PRN IV PUSH HYPOGLYCEMIA-SEE COMMENTS; Start 04/25/17 at 08:15 Dextrose/Sodium Chloride 1,000 ml @ 200 mls/hr Q5H IV ; Start 04/22/17 at 17:00 ; Stop 04/22/17 at 18:46; Status DC Diphenhydramine HCl (Benadryl) 25 mg Q4H PRN PO SEE LABEL COMMENTS; Start 05/01 at 10:00 Epoetin Cristian (Epogen Inj) 10,000 units UNSCH PRN IV PUSH WITH DIALYSIS Last administered on 05/05/17at 11:12; Start 04/25/17 at 13:00 Famotidine (Pepcid Inj) 10 mg Q12HR IV PUSH Last administered on 05/01/17at 22: 19; Start 04/23/17 at 21:00; Stop 05/02/17 at 12:02; Status DC Fluconazole (Diflucan) 100 mg DAILY PO Last administered on 05/04/17at 09:25; Start 05/04/17 at 09:00; Stop 05/08/17 at 08:59 Furosemide (Lasix Inj) 40 mg ONCE ONCE IV PUSH Last administered on 04/24/17at 07:32; Start 04/24/17 at 06:30; Stop 04/24/17 at 06:31; Status DC Gelatin (Gelfoam 12 Mm/7 Mm Top) 1 foam UNSCH PRN TOP SEE LABEL COMMENTS; Start 04/24/17 at 07:00 Gentamicin Sulfate (Gentamicin Inj) 20 mg UNSCH PRN OTHER WITH DIALYSIS Last administered on 05/05/17at 11:13; Start 04/24/17 at 07:00 Glucagon (Glucagon Inj) 1 mg UNSCH PRN OTHER HYPOGLYCEMIA-SEE COMMENTS; Start 04/25/17 at 08:15 Heparin Sodium (Porcine) (Heparin Inj) UNSCH PRN IV FLUSH SEE PROTOCOL; Start 05/01/17 at 12:00 Heparin Sodium/ Dextrose 250 ml @ 12.438 mls/ hr TITRATE PRN IV Coagulation Management Last administered on 04/23/17at 23:04; Start 04/23/17 at 20:45; Stop 04/29/17 at 11:01; Status DC Hydralazine HCl (Apresoline Inj) 10 mg Q6H PRN IV PUSH SBP> OR = 180, DBP> OR = 100 Last administered on 04/23/17at 01:05; Start 04/21/17 at 21:30 Hydromorphone HCl (Dilaudid Pf Inj) 0.2 mg Q4H PRN IV PUSH BREAKTHROUGH PAIN Last administered on 04/28/17at 08:49; Start 04/23/17 at 23:30 Insulin Aspart (NovoLOG SUPPLEMENTAL SCALE) 1 Q4H SQ Last administered on at 12:47; Start 04/25/17 at 09:00 Insulin Aspart (NovoLOG INJ) 5 units TIDAC SQ Last administered on 04/23/17at 17 :00; Start 04/22/17 at 18:45; Stop 04/24/17 at 04:34; Status DC Insulin Detemir (Levemir Inj) 7 units Q12HR SQ Last administered on 05/04/17at 21:26; Start 05/03/17 at 21:00 Insulin Human Regular (NovoLIN R INJ) 10 units ONCE ONCE IV PUSH Last administered on 04/24/17at 05:30; Start 04/24/17 at 04:45; Stop 04/24/17 at 04:46 ; Status DC Insulin Human Regular 100 units/ Sodium Chloride 100 ml @ 2 mls/hr TITRATE PRN IV Blood Glucose Control; Start 04/24/17 at 10:15; Stop 04/25/17 at 08:11; Status DC Levofloxacin/ Dextrose 100 ml @ 100 mls/hr Q48H IV Last administered on at 16:00; Start 04/25/17 at 16:00; Stop 05/02/17 at 15:59; Status DC Mannitol (Mannitol Inj) 12.5 gm UNSCH PRN IV WITH DIALYSIS; Start 04/24/17 at 07:00 Miscellaneous Information ALL NURSING DEPARTME... UNSCH PRN .XX SEE LABEL COMMENTS; Start 04/26/17 at 15:54; Stop 04/27/17 at 15:53; Status DC Nitroglycerin (Nitrostat Sl) 0.4 mg UNSCH PRN SL CHEST PAIN; Start 04/24/17 at 07:00 Ondansetron HCl (Zofran Inj) 4 mg UNSCH PRN IV PUSH WITH DIALYSIS; Start at 07:00 Oxycodone HCl (Roxicodone) 10 mg Q4H PRN PO PAIN 8-10 Last administered on 05/03at 22:54; Start 04/23/17 at 23:30 Potassium Chloride 100 ml @ 50 mls/hr Q2H PRN IV SEE LABEL COMMENTS; Start 01/27 at 21:15; Stop 04/22/17 at 18:46; Status DC Rifaximin (Xifaxan) 550 mg BID PO Last administered on 05/01/17at 22:18; Start 04/24/17 at 09:00; Stop 05/02/17 at 11:15; Status DC Sodium Bicarbonate 50 meq/Dextrose 1,000 ml @ 150 mls/hr Q6H40M IV Last administered on 04/25/17at 04:54; Start 04/23/17 at 17:15; Stop 04/25/17 at 08:11 ; Status DC Sodium Bicarbonate 50 meq/Sterile Water 900 ml @ 75 mls/hr Q12H IV ; Start at 16:00; Stop 04/23/17 at 17:08; Status DC Sodium Polystyrene Sulfonate (Kayexalate Liq) 30 gm ONCE ONCE PO Last administered on 04/24/17at 07:32; Start 04/24/17 at 06:30; Stop 04/24/17 at 06:31 ; Status DC Sodium Bicarbonate (Sodium Bicarbonate 8.4% Inj) 100 meq ONCE ONCE IV PUSH Last administered on 04/24/17at 07:31; Start 04/24/17 at 06:30; Stop 04/24/17 at 06:31; Status DC Sodium Chloride (NS Flush) UNSCH PRN IV FLUSH SEE PROTOCOL; Start 05/01/17 at 12:00 Sodium Chloride 38.5 meq/Sterile Water 1,009.625 ml @ 84 mls/hr Q12H2M IV Last administered on 04/23/17at 08:02; Start 04/22/17 at 20:00; Stop 04/23/17 at 16:05 ; Status DC Sodium Phosphate 15 mmol/Sodium Chloride 105 ml @ 25 mls/hr UNSCH PRN IV SEE LABEL COMMENTS; Start 04/21/17 at 21:15 Tamsulosin HCl (Flomax) 0.4 mg HS PO Last administered on 05/04/17at 21:25; Start 05/03/17 at 21:00 Vancomycin/Sodium Chloride 200 ml @ 200 mls/hr SHIPPING & RECEIVING LEAD IV Last administered on 05/01/17at 12:04; Start 04/30/17 at 14:30 Water (Free Water) 200 ml Q6HR PO Last administered on 04/24/17at 06:00; Start 04/23/17 at 18:00; Stop 04/29/17 at 11:01; Status DC Urinary Catheter: Yes Vascular Central Line Catheter: No Line: Central Venous Catheter Side: Right Location: Jugular A/P Assessment and Plan Patient is 67 year old Male with PMHx of HTN and DM presented to ED via EVAC due to 1 wk hx of decreased po intake. Patient found to be altered, hypertensive with blood glucose greater than 900, elevated anion gap of 29, beta hydroxy of 11.9. Patient admitted to management of DKA. Transitioned to SQ insulin on 04/22. Of note, communication with the patient has been difficult at times. Doorman concrete pourer was used on 04/23 as patient is primarily Serbian speaking, and the concrete pourer could not understand the patient. Nursing staff and medical team has been able to communicate with the patient in Chilean successfully at times but he occasionally slurs his speech/is not understandable. On 04/23 patient was found to have significant transaminitis as well as worsening renal function. Nephrology, GI consulted. A discussion was had with the patient's on 04/23 and she stated that all of the patient's symptoms (including his R leg stiffness/loss of function) were new and that he had been found down for up to 5 hours before coming to the ER. Vascular was consulted at that time and it was noted that patient had no palpable pulses, either femoral, popliteal, dorsalis pedis or post tibial. Ultrasound revealed complete occlusion of blood flow to the R leg and patient was immediately taken to the OR for R leg clot fasciotomy thrombectomy. On 04/24 patient was found to have worsening renal function with Creatinine of 4.85 and a Potassium of 7.1. R int jugular vascular cath was placed and patient underwent HD at that time. Labs were indicative of rhabdomyolysis. Right above knee amputation with wound vac was performed on 04/24. Received one blood transfusion following the procedure. S/P closure of amputation site on 04/27 with drain removal 04/29. Getting HD MWF. Unclear clinical course ahead. Palliative care consulted 04/29 to further elucidate goals of care, appreciate recommendations. PermCath placed 05/01 for continued outpatient dialysis. Case management working on rehab discharge planning, [facility] (if [facility] bed available). 05/05: Urology consulted 05/04 to assist with urinary retention Nephrology managing, appreciate assistance in this patient's care. Critical Care signed off 04/28. * Neuro: intermittent AMS resolved, Dementia * Patient's states that his baseline is totally normal. Suspect possible CVA prior to ED arrival. Also suspecting Dementia vs delirium as patient continues to express lack of knowledge of his amputation at times * Last normal appears to be 7AM on 04/21/2017 per * Orders for CVA workup initiated, but as patient has multiple problems currently requiring intensive treatment, several of these studies may be delayed. Brain MRI/MRA noncontrast held, Carotid US held due to jugular venous lines placed, echocardiogram ordered and overall unremarkable, PT/OT/speech evaluations. CT head negative in ED. Consider ordering MRI once stable * No previous CVA history * Lipid profile showing triglycerides 200, cholesterol 155, LDL 102, HDL 12.6, A1c 17.7 * Will initiate atorvastatin once liver function is stable, likely as outpt * Rehab at discharge * CV: Hx CABG remotely, Intermittent bradycardia, HTN, critical limb ischemia s/ p amputation * Continue telemetry * Echo 04/24 showing EF 60-65%, normal LV size, no noted wall motion abnormalities * HTN now being treated with amlodipine 5 mg daily * Vascular surgery performed R leg clot fasciotomy thrombectomy on 04/23. * Right above knee amputation with wound vac was performed on 04/24. * Amputation closure performed 04/26 * Increased Amlodipine to 10mg as patient was persistently hypertensive on . BP WNL on 05/04 * GI: acute transaminitis, difficulty swallowing, hyperammonemia * Transaminitis resolving. Unclear etiology as LFTs were normal on admission, suspecting rhabdomyolysis as likely cause. * Was given Ofirmev x 1 on 04/22. Tylenol level normal * Patient is asymptomatic, no jaundice or alcoholic history * Transaminases 3000 on 04/24. Bilirubin normal. Trending down. * CK improving but still markedly elevated. Normal on admission * US Liver on 04/24 showed findings consistent with hepatic steatosis versus medical liver disease. Cholelithiasis noted. * Gastroenterology signed off on 04/24. * Hepatitis panel negative. * Hyperammonemia of 75 and 04/24 - given Rifaximin 500 g BID with d/c 05/02. Ammonia normal. * Speech therapy evaluated and now cleared for solid diet as of 04/29. * FEN/RENAL: acute renal failure complicated by chronic kidney disease, hypoalbuminemia, hypocalcemia, rhabdomyolysis * Creatinine 5.09 on 05/01 after dialysis on 04/30 with GFR 11 * Hypernatremia resolved * Hyperkalemia resolved * Hypocalcemia improved * Urine prot/creat ratio 5.06, very elevated, suspect diabetic nephropathy * Renal US normal * Nephrology consulted, appreciate recommendations * Hemodialysis dependent initiated 04/24, now scheduled MWF. UOP 11 ml/kg/hr, inadequate * Will likely need HD for 6 weeks, nephrology will set this up as outpt * DCd Montalvo on 05/02 - required straight cath over next 24 hours due to inability to urinate - started Flomax on 05/03. Still urinary retention on 05/04 so reordered Montalvo and will try again in 5-7 days. * Urology consulted * ID: UTI complicated by male gender, race, urethral injury, Leukocytosis 04/29 * Leukocytosis on admission resolved but recurred 04/29, will monitor. WBC trending up to 16.6 on 05/03 - CXR negative, blood cultures from 05/03 with NGTD, UA on 05/02 showing large leukocyte esterase, 179 WBC - grew Joslyn and started on Diflucan on 05/03. WBC improved to 11.6 on 05/04 * VS not showing signs of systemic infection * CXR on admission normal * Patient removed catheter traumatically on 04/21/2017 * Catheter replaced and in place since admission * Given renal and liver disease, consulted Pharmacist cisco consultant who recommended Levaquin, 750mg IV q 24hr, then 500mg IV q 48 started on 04/23. 10 day course completed (stop date 05/02). Dosing was renally adjusted due to ESRD * Urine culture growing Klebsiella, Group B strep - pansensitive * Lactic acid 1.1 on 04/25 * CRP 21.10 on 04/24 * Fluconazole initiated 05/03 * HEME: rhabdomyolysis, acute blood loss anemia, anemia of chronic disease * Goal Hgb > 7 * Nephrology started Epoetin 10,000 units with dialysis * Urethral bleeding / traumatic catheter removal resolved * Urine color significantly improved, and UOP improving * Status post 2 units of packed red blood cells following amputation on 04/24 * Monitor CBC daily, PRBCs for Hgb <7 or sx * Hgb 6.5 on 05/01 --> S/P one unit PRBCs with f/u Hgb 8.0, stable through 05/04 * Total creatinine kinase trending down, to continue monitoring as outpatient with nephrology * ENDO: Diabetes * Hyperglycemia: HHS on admission, resolved on 04/22 but insulin drip resumed on 04/24. Discontinued insulin drip and started SSI on 04/25 * A1c 17.7 * staff educator, advertising vice president consulted * TSH wnl * Patient now cleared for regular diet, Increased Levemir to 10 units BID from 7 units BID on 05/05 * PROPH/LINES: * Heparin 5000U sq q12h, held for PermCath, restarted on 05/03 * PermCath 05/01/17 Discharge Planning Anticipate transition to shelter care facility (or SNF) with dialysis, rehab, medication administration. Case Management consulted for SNF placement MIHIR Bernard Problem List: (1) Hyperammonemia ICD Codes: E72.20 - Disorder of urea cycle metabolism, unspecified Status: Acute (2) Compartment syndrome ICD Codes: T79.A0XA - Compartment syndrome, unspecified, initial encounter Status: Acute (3) Diabetes mellitus ICD Codes: E11.9 - Diabetes mellitus Status: Chronic (4) Hypertension ICD Codes: I10 - Hypertension Status: Acute (5) Acute renal failure ICD Codes: N17.9 - Acute kidney failure, unspecified Status: Acute (6) Hypernatremia ICD Codes: E87.0 - Hyperosmolality and hypernatremia Status: Resolved (7) Hyperkalemia ICD Codes: E87.5 - Hyperkalemia Status: Acute (8) UTI (urinary tract infection) ICD Codes: N39.0 - Urinary tract infection, site not specified Status: Acute (9) Transaminitis ICD Codes: R74.0 - Nonspecific elevation of levels of transaminase and lactic acid dehydrogenase [LDH] Problem Qualifiers (1) Acute renal failure: Qualified Codes: N17.9 - Acute kidney failure, unspecified (2) UTI (urinary tract infection): Qualified Codes: N10 - Acute pyelonephritis Roma Armijo MD May 05, 2017 11:11
[2017-05-05] MEDS: EPOETIN ALFA 10,000 UNITS/ML VIAL IV PUSH PRN (11:12)
[2017-05-05] MEDS: HEPARIN SODIUM - IV 10,000 UNITS/10 ML VIAL PRN (11:12)
[2017-05-05] MEDS: GENTAMICIN SULFATE 20 MG/2 ML VIAL OTHER PRN (11:13)
[2017-05-05 12:00] VITALS: BP 144/67; PULSE 103; RESP 18; TEMP 98.1; O2SAT 98
[2017-05-05 16:00] VITALS: BP 179/79; PULSE 85; RESP 18; TEMP 98.5; O2SAT 97
--- NOTE | 2017-05-05 18:17 | MB ---
cc: Braeden Ann MD DATE: 05/05/2017 REASON FOR CONSULTATION: Urinary retention. HISTORY OF PRESENT ILLNESS: This patient is a 67-year-old male from [facility] [place] who presented to [facility] Emergency Department on 04/21 and was admitted for diabetic ketoacidosis. On admission, he was found to have a creatinine of 4.1 and it slowly progressively worsened. He subsequently developed compartment syndrome in his right lower extremity and underwent a fasciotomy with subsequent thromboembolectomy; however, his leg did not recover. He underwent a right above-knee amputation. He subsequently had a Montalvo catheter removed, was unable to urinate, and underwent intermittent catheterization for volumes greater than 400. He eventually had a Montalvo catheter placed after several episodes of catheterization. Urology was consulted for urinary retention. The patient states he has had trouble urinating in the past, in which he gets up 3 or 4 times a night and has a weak stream. He denies hematuria, dysuria, or leakage of urine. During his admission, he also was started on hemodialysis and had a Permcath placed. He denies history of kidney stones or urinary tract infections. Currently, denies fevers, chills, abdominal pain, nausea or vomiting. REVIEW OF SYSTEMS: See HPI. Otherwise, all systems reviewed otherwise were negative. ALLERGIES: NO DRUG ALLERGIES. PAST MEDICAL HISTORY: Significant for diabetes, hypertension, coronary artery disease, hyperlipidemia, peripheral vascular disease. PAST SURGICAL HISTORY: He had a CABG in 2010 and a right above-knee amputation. He also had prior heart stents. MEDICATIONS: None. FAMILY HISTORY: His mother at age 99. Denies urolithiasis or genitourinary malignancy. SOCIAL HISTORY: He smokes half pack of cigarettes per day. Denies use of alcohol or illicit drugs. PHYSICAL EXAMINATION: VITAL SIGNS: Temperature 98.9, pulse 91, respiration rate 17, BP 142/65, saturating 99% on room air. GENERAL: He is alert and oriented x 3, no apparent distress, pleasant and cooperative gentleman who appears his stated age. HEAD: Normocephalic, atraumatic. SKIN: No ulcers or rashes visible. Mucous membranes are cool and moist. EYES: No scleral icterus. Extraocular muscles intact. NECK: Supple. Trachea is midline. No JVD. LUNGS: Clear to auscultation bilaterally. No wheezes, rales, or rhonchi. HEART: Regular rate and rhythm. No murmurs, gallops, or rubs. ABDOMEN: Soft, nontender, nondistended, positive bowel sounds. GENITOURINARY: His penis is uncircumcised. Testes are descended bilaterally, normal in size and consistency. His foreskin is easily retractable. BACK: No CVA tenderness bilaterally. EXTREMITIES: He has an above right knee amputation with a healing wound. His left leg is normal with nontender. No clubbing, cyanosis or edema. PSYCHIATRIC: Normal affect. NEUROLOGIC: Cranial nerves 2-12 are intact. Left lower extremity has 5/5 strength, his bilateral upper extremities 5/5 strength. LABORATORY DATA: White count 8.4, hemoglobin 8.1, hematocrit 24.2, platelet count 239. Sodium , potassium 3.5, chloride 103, bicarbonate 28.0, BUN 41, creatinine 5.47. His urine showed moderate blood, positive for glucose. Culture currently pending. IMAGING: Renal ultrasound images were reviewed. Agree with radiologist report. Patient has a simple left renal cyst. No evidence of hydronephrosis or mass or kidney stones. ASSESSMENT: The patient is a 67-year-old male with a history of diabetes with new onset end-stage renal disease, currently on hemodialysis, who presents with acute postoperative urinary retention. PLAN: Recommend continuing the Montalvo catheter for a minimum of 7 days. After Friday, then can void trial. Will start the patient on Flomax 0.4 mg daily. If the patient is ready for discharge prior to 7 days, he will then be discharged home with the Montalvo catheter and a void trial as an outpatient in my office. Either way, he can follow up with me as an outpatient. Thank you for this consult. Please call with any questions. Available as needed. MD CASSIDY Katz/SULEMAN , 05:23 PM , 06:16 PM
[2017-05-05] MEDS: TAMSULOSIN HCL 0.4 MG CAP PO SCH (21:08)
[2017-05-05 21:15] VITALS: BP 160/69; PULSE 81; RESP 17; TEMP 98.1; O2SAT 100
[2017-05-06 00:17] VITALS: BP 156/64; PULSE 90; RESP 17; TEMP 99.3; O2SAT 100
[2017-05-06] MEDS: HEPARIN SODIUM - SQ 10,000 UNITS/ML VIAL SQ SCH ×2 (01:58→12:35)
[2017-05-06] MEDS: INSULIN ASPART SUPPLEMENTAL SCALE SQ SCH ×6 (02:07→23:19)
[2017-05-06] MEDS: CHLORHEXIDINE GLUCONATE 2 % 1 PACK (2 CLOTHS) TOP SCH (04:00)
[2017-05-06 05:23] VITALS: BP 171/68; PULSE 69; RESP 17; TEMP 99; O2SAT 96
[2017-05-06 08:00] VITALS: BP 148/75; PULSE 95; RESP 18; TEMP 98.6; O2SAT 99
[2017-05-06] MEDS: INSULIN DETEMIR 100 UNITS/ML VIAL SQ SCH ×2 (09:10→21:00)
[2017-05-06] MEDS: FLUCONAZOLE 100 MG TAB PO SCH (09:10)
[2017-05-06] MEDS: SODIUM CHLORIDE 0.9% FLUSH 10 ML FLUSH IV FLUSH SCH ×2 (09:11→22:04)
[2017-05-06 09:29] LABS: AUTOMATED NEUTROPHIL # 7.4 TH/MM3 (1.8-7.7); BASOPHIL # 0.1 TH/MM3 (0-0.2); BASOPHIL % 0.8 % (0.0-2.0); EOSINOPHIL # 0.1 TH/MM3 (0-0.4); EOSINOPHIL % 0.7 % (0.0-4.0); HEMATOCRIT 24.6 % (39.0-51.0); HEMOGLOBIN 8.4 GM/DL (13.0-17.0); LYMPH % 16.3 % (9.0-44.0); LYMPHOCYTE # 1.6 TH/MM3 (1.0-4.8); MEAN CELL VOLUME 93.6 FL (80.0-100.0); MEAN CORPUSCULAR HEMOGLOBIN 31.9 PG (27.0-34.0); MEAN CORPUSCULAR HGB CONC 34.1 % (32.0-36.0); MEAN PLATELET VOLUME 7.9 FL (7.0-11.0); MONO % 8.7 % (0.0-8.0); MONOCYTE # 0.9 TH/MM3 (0-0.9); NEUT % 73.5 % (16.0-70.0); PLATELET COUNT 244 TH/MM3 (150-450); RED BLOOD COUNT 2.63 MIL/MM3 (4.50-5.90); WHITE BLOOD COUNT 10.1 TH/MM3 (4.0-11.0)
[2017-05-06] MEDS ORDERED: TAMS5CAP PO (09:38)
[2017-05-06] MEDS ORDERED: AMLO10 PO (09:41)
[2017-05-06] MEDS ORDERED: LEVEMIR SQ (09:41)
[2017-05-06 09:58] LABS: BICARBONATE 29.7 MEQ/L (21.0-32.0); CALCIUM 8.4 MG/DL (8.5-10.1); CREATININE 3.89 MG/DL (0.60-1.30)
--- NOTE | 2017-05-06 10:43 | HHI.FPPN ---
Subjective Remarks No acute events overnight. Patient states he feels well this morning with no complaints. Chest pain, shortness of breath, nausea or vomiting. Objective Vitals Vital Signs Date Time Temp Pulse Resp B/P (MAP) Pulse Ox O2 Delivery O2 Flow Rate FiO2 05/06/17 08:00 98.6 95 18 148/75 (99) 99 05/06/17 05:23 99.0 69 17 171/68 (102) 96 05/06/17 00:17 99.3 90 17 156/64 (94) 100 05/05/17 21:15 98.1 81 17 160/69 (99) 100 05/05/17 16:00 98.5 85 18 179/79 (112) 97 05/05/17 12:00 98.1 103 18 144/67 (92) 98 I/O 05/05/17 05/05/17 05/05/17 05/06/17 05/06/17 05/06/17 07:00 15:00 23:00 07:00 15:00 23:00 Intake Total 900 ml 360 ml Output Total 850 ml 900 ml 450 ml 550 ml Balance 50 ml -900 ml -90 ml -550 ml Intake Oral 900 ml 360 ml Output Urine Total 850 ml 450 ml 550 ml Hemodialysis 900 ml # Bowel Movements 2 1 Result Diagram: 05/06/17 0817 05/06/17 0717 Objective Remarks GENERAL: This is a thin male, lying in bed in NAD. SKIN: No rashes, ecchymoses or lesions outside of RLE as noted below. Perm cath in place with no draining or erythema noted. Dialysis in process. HEAD: Atraumatic. Normocephalic. EYES: Pupils equal round and reactive. Extraocular motions intact. CARDIOVASCULAR: Regular rate and rhythm without murmurs, gallops, or rubs. RESPIRATORY: Clear to auscultation. Breath sounds equal bilaterally. No wheezes , rales, or rhonchi. GASTROINTESTINAL: Abdomen soft, non-tender, nondistended. No hepato-splenomegaly , or palpable masses. No guarding. MUSCULOSKELETAL: RLE with [id number]-exty amputation, no drain, with stitches intact. No erythema or drainage noted at surgical site. Also sutures appreciated in the R inguinal area with no drainage or erythema. Skin is warm above level of amputation. LLE warm to touch, +palpated left DP pulse : Montalvo in place with no erythema or discharge appreciated. NEUROLOGICAL: Cranial nerves grossly intact. Moving LLE and upper extremities spontaneously. Answers questions appropriately. Line: Central Venous Catheter Side: Right Location: Jugular A/P Assessment and Plan Patient is 67 year old Male with PMHx of HTN and DM presented to ED via EVAC due to 1 wk hx of decreased po intake. Patient found to be altered, hypertensive with blood glucose greater than 900, elevated anion gap of 29, beta hydroxy of 11.9. Patient admitted to management of DKA. Transitioned to SQ insulin on 04/22. Of note, communication with the patient has been difficult at times. [employer] lang interpreter was used on 04/23 as patient is primarily Swedish speaking, and the lang interpreter could not understand the patient. Nursing staff and medical team has been able to communicate with the patient in [place] successfully at times but he occasionally slurs his speech/is not understandable. On 04/23 patient was found to have significant transaminitis as well as worsening renal function. Nephrology, GI consulted. A discussion was had with the patient's on 04/23 and she stated that all of the patient's symptoms (including his R leg stiffness/loss of function) were new and that he had been found down for up to 5 hours before coming to the ER. Vascular was consulted at that time and it was noted that patient had no palpable pulses, either femoral, popliteal, dorsalis pedis or post tibial. Ultrasound revealed complete occlusion of blood flow to the R leg and patient was immediately taken to the OR for R leg clot fasciotomy thrombectomy. On 04/24 patient was found to have worsening renal function with Creatinine of 4.85 and a Potassium of 7.1. R int jugular vascular cath was placed and patient underwent HD at that time. Labs were indicative of rhabdomyolysis. Right above knee amputation with wound vac was performed on 04/24. Received one blood transfusion following the procedure. S/P closure of amputation site on 04/27 with drain removal 04/29. Getting HD MWF. Unclear clinical course ahead. Palliative care consulted 04/29 to further elucidate goals of care, appreciate recommendations. PermCath placed 05/01 for continued outpatient dialysis. Case management working on rehab discharge planning[facility] 05/05: Urology consulted 05/04 to assist with urinary retention - recommending Montalvo catheter for 7 days, Flomax before another trial without the catheter. Follow up with urology as outpatient Nephrology managing, appreciate assistance in this patient's care. Critical Care signed off 04/28. * Neuro: intermittent AMS resolved, Dementia * Initially presented with altered mental status, confusion. Has resolved and patient oriented 3 with no signs of delirium * No previous CVA history * Lipid profile showing triglycerides 200, cholesterol 155, LDL 102, HDL 12.6, A1c 17.7 * Will initiate atorvastatin once liver function is stable, likely as outpt * Rehab at discharge * CV: Hx CABG remotely, Intermittent bradycardia, HTN, critical limb ischemia s/ p amputation * Echo 04/24 showing EF 60-65%, normal LV size, no noted wall motion abnormalities * Vascular surgery performed R leg clot fasciotomy thrombectomy on 04/23. * Right above knee amputation with wound vac was performed on 04/24. * Amputation closure performed 04/26 * Increased Amlodipine to 10mg as patient was persistently hypertensive. * GI: acute transaminitis, difficulty swallowing, hyperammonemia * LFTs were normal admission, then became significantly elevated most likely secondary to rhabdomyolysis. Returned to baseline following IV fluids and amputation of the right leg above the knee. * US Liver on 04/24 showed findings consistent with hepatic steatosis versus medical liver disease. Cholelithiasis noted. * Hepatitis panel negative. * FEN/RENAL: acute renal failure complicated by chronic kidney disease, hypoalbuminemia, hypocalcemia, rhabdomyolysis * Creatinine elevated on admission at 3.42. Worsened after patient went into rhabdo. Nephrology was consult and patient has been on hemodialysis MWF since * Renal US normal * Nephrology consulted, appreciate recommendations * Will likely need HD for 6 weeks, nephrology will set this up as outpt * Attempted to DCd Montalvo on 05/02 - required straight cath over next 24 hours due to inability to urinate - started Flomax on 05/03. Still urinary retention on 05/04 so reordered Montalvo and will try again in 7 days. * Urology consulted and recommending 7 days with Montalvo before another trial. Continue Flomax and follow up with urology as outpatient * ID: UTI complicated by male gender, race, urethral injury, Leukocytosis 04/29 * Found to have UTI on admission with cultures growing Klebsiella, group B strep and was treated with Levaquin for 10 day course * Leukocytosis on admission resolved but recurred 04/29, repeat UA at that time grew Joslyn and patient was started on Diflucan on 05/03. Leukocytosis currently resolved as of 05/05 * Will complete Diflucan for 14 day course * HEME: rhabdomyolysis, acute blood loss anemia, anemia of chronic disease * Goal Hgb > 7 * Nephrology started Epoetin 10,000 units with dialysis * Status post 2 units of packed red blood cells following amputation on 04/24, 1 unit on 05/01 * H/H stable since that time * Monitor CBC daily, PRBCs for Hgb <7 or sx * ENDO: Diabetes * Hyperglycemia: HHS on admission, resolved on 04/22 but insulin drip resumed on 04/24. Discontinued insulin drip and started SSI on 04/25 * A1c 17.7 * family living educator, desizing machine offbearer consulted * TSH wnl * Patient now cleared for regular diet, Increased Levemir to 10 units BID, will continue * PROPH/LINES: * Heparin 5000U sq q12h, held for PermCath, restarted on 05/03 * PermCath 05/01/17 Discharge Planning Anticipate transition to senior living care facility (or SNF) with dialysis, rehab, medication administration. Case Management consulted for SNF placement DW Dr. Bernard Problem List: (1) Hyperammonemia ICD Codes: E72.20 - Disorder of urea cycle metabolism, unspecified Status: Acute (2) Compartment syndrome ICD Codes: T79.A0XA - Compartment syndrome, unspecified, initial encounter Status: Acute (3) Diabetes mellitus ICD Codes: E11.9 - Diabetes mellitus Status: Chronic (4) Hypertension ICD Codes: I10 - Hypertension Status: Acute (5) Acute renal failure ICD Codes: N17.9 - Acute kidney failure, unspecified Status: Acute (6) Hypernatremia ICD Codes: E87.0 - Hyperosmolality and hypernatremia Status: Resolved (7) Hyperkalemia ICD Codes: E87.5 - Hyperkalemia Status: Acute (8) UTI (urinary tract infection) ICD Codes: N39.0 - Urinary tract infection, site not specified Status: Acute (9) Transaminitis ICD Codes: R74.0 - Nonspecific elevation of levels of transaminase and lactic acid dehydrogenase [LDH] Problem Qualifiers (1) Acute renal failure: Qualified Codes: N17.9 - Acute kidney failure, unspecified (2) UTI (urinary tract infection): Qualified Codes: N10 - Acute pyelonephritis Mango Cheung MD R1 May 06, 2017 10:43
--- NOTE | 2017-05-06 11:30 | HHI.HCPN ---
Reason for visit a. To assist with evaluation and management of symptoms including:Pain, debility b. To assist medical decision maker(s) with: better understanding of current medical conditions; weighing benefits/burdens of medical treatment options; making medical treatment decisions. Subjective/Interval History Follow-up on goals of care and symptom management. Patient seen and examined in his room. Patient is sitting up on a bedside commode. Has just finished having a sponge bath. Patient is pleasant, alert and oriented to self, place and situation. Patient denies pain, complaining of some discomfort during transfers though he mentions that ist is tolerable and he prefers to be out of bed rather than stay in bed. Urology Dr. Ann consulted for urinary retention, recommended keeping indwelling boyer catheter in for 7 days and started patient on Flomax. Laboratory workup today revealing WBC 10.0, hemoglobin 8.4, hematocrit 24.6, platelet count 244,, BUN/creatinine 26/3.89, estimated GFR 15, calcium 8.4 Report from occupational therapist that patient is actively and willingly participating in rehabilitation. OT and PT recommend OT and PT in rehab. Case management assisting with discharge to rehab- most likely a [facility] bed at [place]. . Family/friend interactions No family at bedside . Advance Directives Living Will: Never completed Health Care Surrogate: Copy in medical record Durable Power of Grainer Machine: Never completed Advance Directive Specifics Date completed: 04/29/2017 . Health Care Surrogate(s): [facility]-Spouse- Mariann Lozano-[phone] Alternate [facility]- DajuanMorris . Objective Vital Signs Date Time Temp Pulse Resp B/P (MAP) Pulse Ox O2 Delivery O2 Flow Rate FiO2 05/06/17 08:00 98.6 95 18 148/75 (99) 99 05/06/17 05:23 99.0 69 17 171/68 (102) 96 05/06/17 00:17 99.3 90 17 156/64 (94) 100 05/05/17 21:15 98.1 81 17 160/69 (99) 100 05/05/17 16:00 98.5 85 18 179/79 (112) 97 05/05/17 12:00 98.1 103 18 144/67 (92) 98 Intake & Output 05/06/17 05/06/17 07:00 19:00 Output Total 550 ml Balance -550 ml Output Urine Total 550 ml # Bowel Movements 1 Physical Exam CONSTITUTIONAL/GENERAL: This is an adequately nourished patient, in no apparent distress. TUBES/LINES/DRAINS: Vas Cath, RAC PIV SKIN: No jaundice, rashes, or lesions. Ecchymoses on upper extremities.Surgical incision to R-AKA. Skin temperature appropriate. Not diaphoretic. CARDIOVASCULAR: S1, S2, regular rhythm, controlled rate, 2/6 systolic ejection murmur, no rub no gallop. RESPIRATORY/CHEST: Symmetric, unlabored respirations. Clear to auscultation. Breath sounds equal bilaterally. No wheezes, rales, or rhonchi. GASTROINTESTINAL: Abdomen soft, non-tender, nondistended. No guarding. Bowel sounds present. GENITOURINARY: Without palpable bladder distension. Boyer catheter in place MUSCULOSKELETAL: Right AKA incision well approximated, sutured, no erythema or drainage. Open to air. Left lower extremity with diminished pulse, no edema NEUROLOGICAL: Awake and alert, oriented to self and place, motor and sensory grossly within normal limits. Follows commands. Moves all extremities. PSYCHIATRIC: No obvious anxiety/depression. no apparent hallucinations or other psychotic thought process. . Diagnostic Tests Laboratory Laboratory Tests Test 05/04/17 07:50 05/04/17 07:58 05/04/17 16:00 05/05/17 06:10 Blood Urea Nitrogen 40 MG/DL (7-18) 41 MG/DL (7-18) Creatinine 5.35 MG/DL (0.60-1.30) 5.47 MG/DL (0.60-1.30) Random Glucose 114 MG/DL (74-106) 83 MG/DL (74-106) Total Protein 5.4 GM/DL (6.4-8.2) 5.7 GM/DL (6.4-8.2) Albumin 1.8 GM/DL (3.4-5.0) 2.1 GM/DL (3.4-5.0) Calcium Level 8.0 MG/DL (8.5-10.1) 8.2 MG/DL (8.5-10.1) Alkaline Phosphatase 86 U/L (45-117) 86 U/L (45-117) Aspartate Amino Transf (AST/SGOT) 28 U/L (15-37) 26 U/L (15-37) Alanine Aminotransferase (ALT/SGPT) 16 U/L (12-78) 15 U/L (12-78) Total Bilirubin 0.3 MG/DL (0.2-1.0) 0.4 MG/DL (0.2-1.0) Sodium Level 140 MEQ/L (136-145) 141 MEQ/L (136-145) Potassium Level 3.5 MEQ/L (3.5-5.1) 3.5 MEQ/L (3.5-5.1) Chloride Level 103 MEQ/L (98-107) 103 MEQ/L (98-107) Carbon Dioxide Level 25.8 MEQ/L (21.0-32.0) 28.0 MEQ/L (21.0-32.0) Anion Gap 11 MEQ/L (5-15) 10 MEQ/L (5-15) Estimat Glomerular Filtration Rate 11 ML/MIN (>89) 10 ML/MIN (>89) White Blood Count 11.6 TH/MM3 (4.0-11.0) 9.4 TH/MM3 (4.0-11.0) Red Blood Count 2.48 MIL/MM3 (4.50-5.90) 2.55 MIL/MM3 (4.50-5.90) Hemoglobin 8.0 GM/DL (13.0-17.0) 8.1 GM/DL (13.0-17.0) Hematocrit 23.5 % (39.0-51.0) 24.2 % (39.0-51.0) Mean Corpuscular Volume 94.8 FL (80.0-100.0) 95.1 FL (80.0-100.0) Mean Corpuscular Hemoglobin 32.2 PG (27.0-34.0) 31.9 PG (27.0-34.0) Mean Corpuscular Hemoglobin Concent 33.9 % (32.0-36.0) 33.6 % (32.0-36.0) Red Cell Distribution Width 15.1 % (11.6-17.2) 15.4 % (11.6-17.2) Platelet Count 204 TH/MM3 (150-450) 239 TH/MM3 (150-450) Mean Platelet Volume 8.0 FL (7.0-11.0) 8.0 FL (7.0-11.0) Neutrophils (%) (Auto) 78.9 % (16.0-70.0) 77.2 % (16.0-70.0) Lymphocytes (%) (Auto) 12.8 % (9.0-44.0) 15.2 % (9.0-44.0) Monocytes (%) (Auto) 6.3 % (0.0-8.0) 6.3 % (0.0-8.0) Eosinophils (%) (Auto) 1.2 % (0.0-4.0) 0.8 % (0.0-4.0) Basophils (%) (Auto) 0.8 % (0.0-2.0) 0.5 % (0.0-2.0) Neutrophils # (Auto) 9.2 TH/MM3 (1.8-7.7) 7.2 TH/MM3 (1.8-7.7) Lymphocytes # (Auto) 1.5 TH/MM3 (1.0-4.8) 1.4 TH/MM3 (1.0-4.8) Monocytes # (Auto) 0.7 TH/MM3 (0-0.9) 0.6 TH/MM3 (0-0.9) Eosinophils # (Auto) 0.1 TH/MM3 (0-0.4) 0.1 TH/MM3 (0-0.4) Basophils # (Auto) 0.1 TH/MM3 (0-0.2) 0.0 TH/MM3 (0-0.2) CBC Comment DIFF FINAL DIFF FINAL Differential Comment Urine Color LIGHT-YELLOW (YELLW/STRAW) Urine Turbidity CLEAR (CLEAR) Urine pH 7.5 (5.0-8.5) Urine Specific [place] 1.008 (1.002-1.035) Urine Protein 30 mg/dL (NEG-TRACE) Urine Glucose (UA) 300 mg/dL (NEG) Urine Ketones NEG mg/dL (NEG) Urine Occult Blood MOD (NEG) Urine Nitrite NEG (NEG) Urine Bilirubin NEG (NEG) Urine Urobilinogen LESS THAN 2.0 MG/DL (LESS Urine Leukocyte Esterase LARGE (NEG) Urine RBC 6 /hpf (0-3) Urine WBC 86 /hpf (0-5) Urine WBC Clumps RARE (NONE) Urine Bacteria RARE /hpf (NONE) Microscopic Urinalysis Comment CATH-CULTURE IND Total Creatine Kinase 129 U/L (39-308) Test 05/06/17 07:17 05/06/17 08:17 Blood Urea Nitrogen 26 MG/DL (7-18) Creatinine 3.89 MG/DL (0.60-1.30) Random Glucose 95 MG/DL (74-106) Calcium Level 8.4 MG/DL (8.5-10.1) Sodium Level 137 MEQ/L (136-145) Potassium Level 3.6 MEQ/L (3.5-5.1) Chloride Level 100 MEQ/L (98-107) Carbon Dioxide Level 29.7 MEQ/L (21.0-32.0) Anion Gap 7 MEQ/L (5-15) Estimat Glomerular Filtration Rate 15 ML/MIN (>89) White Blood Count 10.1 TH/MM3 (4.0-11.0) Red Blood Count 2.63 MIL/MM3 (4.50-5.90) Hemoglobin 8.4 GM/DL (13.0-17.0) Hematocrit 24.6 % (39.0-51.0) Mean Corpuscular Volume 93.6 FL (80.0-100.0) Mean Corpuscular Hemoglobin 31.9 PG (27.0-34.0) Mean Corpuscular Hemoglobin Concent 34.1 % (32.0-36.0) Red Cell Distribution Width 16.0 % (11.6-17.2) Platelet Count 244 TH/MM3 (150-450) Mean Platelet Volume 7.9 FL (7.0-11.0) Neutrophils (%) (Auto) 73.5 % (16.0-70.0) Lymphocytes (%) (Auto) 16.3 % (9.0-44.0) Monocytes (%) (Auto) 8.7 % (0.0-8.0) Eosinophils (%) (Auto) 0.7 % (0.0-4.0) Basophils (%) (Auto) 0.8 % (0.0-2.0) Neutrophils # (Auto) 7.4 TH/MM3 (1.8-7.7) Lymphocytes # (Auto) 1.6 TH/MM3 (1.0-4.8) Monocytes # (Auto) 0.9 TH/MM3 (0-0.9) Eosinophils # (Auto) 0.1 TH/MM3 (0-0.4) Basophils # (Auto) 0.1 TH/MM3 (0-0.2) CBC Comment DIFF FINAL Differential Comment Result Diagram: 05/06/17 0817 05/06/17 0717 Microbiology Microbiology Date/Time Source Procedure Growth Status 05/03/17 12:47 Blood Peripheral Aerobic Blood Culture - Preliminary NO GROWTH IN 3 DAYS Resulted 05/03/17 12:47 Blood Peripheral Anaerobic Blood Culture - Preliminary NO GROWTH IN 3 DAYS Resulted 05/03/17 12:40 Blood Peripheral Aerobic Blood Culture - Preliminary NO GROWTH IN 3 DAYS Resulted 05/03/17 12:40 Blood Peripheral Anaerobic Blood Culture - Preliminary NO GROWTH IN 3 DAYS Resulted 05/04/17 16:00 Urine Clean Catch Urine Culture - Final Joslyn Albicans Complete Procedures 04/23 thrombectomy and right lower leg fasciotomy Central line placement 04/24-Vas-Cath placement 04/2502-vaeks-pygs amputation of right lower extremity 04/28-revision of above-knee amputation of right lower extremity, closure 05/01-placement of PermCath . Assessment and Plan Disease Oriented Problem List: (1) Acute renal failure (2) CKD (chronic kidney disease) stage 3, GFR 30-59 ml/min (3) DKA (diabetic ketoacidoses) (4) Diabetes mellitus (5) Transaminitis (6) Compartment syndrome (7) Hypernatremia (8) Hyperammonemia Symptom Scale: (1) Pain 0-10 Scale: Unable to quantify Comment: Recent Right AKA. . (2) Debility 0-10 Scale: Unable to quantify (Recent Right AKA) Pertinent Non-Medical Issues Psychosocial:Patient is originally from [place]. He came to [place]. He got and moved to [place] with his of +25 years. 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 Patient has 2 adult children, a daughter Junior and son Dajuan. Patient lives with his . Spiritual: Patient is [employer] Legal:Completed and signed HCS Ethical issues impacting care: None identified at this time . Important Contacts Spouse-Mukund Lozanoette-[phone] Son-Dajuan Morris . Prognosis Mr. Loyola is a 67 years old male with a past medical history significant for coronary artery disease s/p CABG and 2 stent placement, myocardial infarction, peripheral arterial disease, diabetes mellitus, hypertension and hyperlipidemia. Patient was brought in on 04/21/17 by EMS with complaints of decreased appetite, decreased thirst for approximately a week. Clinical course complicated with worsening renal function, delirium and nonsalvageable lower extremity ischemia requiring amputation of right lower extremity. Given ongoing comorbidities, patient remains at high risk for further complications, deterioration and decline. . Code Status: No Code Plan PLAN: Legal decision maker: Patient is able to participate in medical decision making. Due to reported intermittent periods of delirium during this hospitalization, recommending medical decision making to be done in collaboration with patient`s spouse Mariann Lozano whom he also designated as his HCS or his son Nir Graff whom he designated as his alternate HCS. Goals: No changes in goals- remain comfort oriented, want rehabilitation but no aggressive resuscitation. Patient referred to [facility] for a [facility]etha bed if available. CODE STATUS: DNR SYMPTOMS: * Pain: Recent right above knee amputation. Risk for phantom pain. Patient has Oxycodone 5mg -10mg q 4 hrs prn and Hydromorphone 0.2mg q 4 hrs prn. Sparingly needing prn medications. Patient states right leg causes pain when left in one position too long or when being removed. Reviewed asking for pain medicine before pain became uncontrolled. Continue assessing pain. Risk for phantom pain. Denies pain, c/o discomfort which patient states is tolerable today. * Debility: Patient recently had above the knee amputation to his right lower extremity and is currently on hemodialysis. Physical therapy consulted, recommended PT and OT at Rehab. This may be a challenging time for patient given his other comorbidities and confusion. states she would like to take him home but is willing for short-term rehabilitation as recommended by PT. [facility]ilar is following for possible shwetha bed admission when ready to be discharged. Palliative care will continue to follow the patient during hospital course as condition evolves, to assist patient/decision-maker with understanding of their medical conditions, weighing benefits/burdens of treatment options, for clarification of goals of treatment. Additionally will assist with any symptoms of palliative concern Attestation To help prompt me to consider important information that might be impacting today's encounter and assessment, information from prior notes written by myself or my colleagues may have been "brought forward" into today's note. My signature on this note, however, is an attestation that I personally performed the exam, history, and/or decision-making noted today, and, unless otherwise indicated, the interactions with patient, family, and staff as well as the review of records all occurred today. I also attest that the listed assessment and stated plan reflect my best clinical judgment today based on the combination of historical information, prior notes, and today's exam/ interactions. When time spent is documented, it refers only to time spent today by the signer, or if indicated, combined time spent today by collaborating physician/nurse practitioner. Ruby Wilson May 06, 2017 11:30
[2017-05-06 12:00] VITALS: BP 153/67; PULSE 92; RESP 18; TEMP 98.7; O2SAT 99
--- NOTE | 2017-05-06 13:16 | HHI.NPPN ---
Subjective History of Present Illness 67 year old with Hypertension,DKA, DM, ARF Additional Remarks doing better Objective Data Data Vital Signs Date Time Temp Pulse Resp B/P (MAP) Pulse Ox O2 Delivery O2 Flow Rate FiO2 05/06/17 12:00 98.7 92 18 153/67 (95) 99 05/06/17 08:00 98.6 95 18 148/75 (99) 99 05/06/17 05:23 99.0 69 17 171/68 (102) 96 05/06/17 00:17 99.3 90 17 156/64 (94) 100 05/05/17 21:15 98.1 81 17 160/69 (99) 100 05/05/17 16:00 98.5 85 18 179/79 (112) 97 -: 05/06/17 0817 05/06/17 0717 Physical Exam General Appearance: Well Developed, Well Nourished Neck Neck Exam: Neck Supple Pulmonary Resp Exam: Clear Bilaterally, Breath Sounds Equal Cardiology CV Exam: Regular, Normal Sinus Rhythm Gastrointestinal/Abdomen GI Exam: Soft, Non-Tender, Bowel Sounds Present Extremeties Extremities Exam: Moderate Edema Extremeties Remarks Rt AKA Neurologic Neuro Exam: Alert Assessment/Plan Problem List: (1) Acute renal failure ICD Codes: N17.9 - Acute kidney failure, unspecified Status: Acute Plan: Patient has chronic kidney disease and acute renal failure with rhabdomyolysis creatinine 4.53 -> 5.9 -> 7.2 -> 5.3 -> 6.3->5.09 -> 5.5 ->4.5-> 5.3->5.4->3.8 UOP 1 L may decrease frequency to twice a week as passing more urine On HD MF - yesterday UF 0.9 L tolerates it well PermCath placed ARF due to Rhabdo will wait [address] AVF he may transfer to rehab on Diflucan Right lower leg ischemia now status post right AKA On Epogen for anemia - transfuse as needed. (2) CKD (chronic kidney disease) stage 3, GFR 30-59 ml/min ICD Codes: N18.3 - Chronic kidney disease, stage 3 (moderate) Status: Chronic Plan: kidney ultrasound left renal cyst (3) Diabetes ICD Codes: E11.9 - Type 2 diabetes mellitus without complications Status: Chronic Plan: History of DKA continue to monitor (4) Hypertension ICD Codes: I10 - Hypertension Status: Acute Plan: BP stable (5) DKA (diabetic ketoacidoses) ICD Codes: E13.10 - Other specified diabetes mellitus with ketoacidosis without coma Status: Acute Plan: Resolved (6) Hypernatremia ICD Codes: E87.0 - Hyperosmolality and hypernatremia Status: Resolved Problem Qualifiers (1) Acute renal failure: Qualified Codes: N17.9 - Acute kidney failure, unspecified Natacha Suarez MD May 06, 2017 13:16
[2017-05-06 16:00] VITALS: BP 146/61; PULSE 89; RESP 18; TEMP 99.3; O2SAT 98
[2017-05-06 20:00] VITALS: BP 163/74; PULSE 87; RESP 20; TEMP 98.9; O2SAT 99
[2017-05-06] MEDS: TAMSULOSIN HCL 0.4 MG CAP PO SCH (22:03)
[2017-05-07] VITALS (7 sets, daily range): BP systolic 111–160; BP diastolic 50–73; PULSE 65–104; RESP 16–20; TEMP 96–99.1; O2SAT 94–100
[2017-05-07] MEDS: INSULIN ASPART SUPPLEMENTAL SCALE SQ SCH ×6 (01:08→21:00)
[2017-05-07] MEDS: HEPARIN SODIUM - SQ 10,000 UNITS/ML VIAL SQ SCH (01:09)
[2017-05-07] MEDS: CHLORHEXIDINE GLUCONATE 2 % 1 PACK (2 CLOTHS) TOP SCH (03:15)
[2017-05-07] MEDS: SODIUM CHLORIDE 0.9% FLUSH 10 ML FLUSH IV FLUSH SCH ×2 (09:00→21:03)
[2017-05-07] MEDS: FLUCONAZOLE 100 MG TAB PO SCH (09:04)
[2017-05-07] MEDS: INSULIN DETEMIR 100 UNITS/ML VIAL SQ SCH ×2 (09:05→21:00)
--- NOTE | 2017-05-07 09:36 | HHI.FPPN ---
Subjective Remarks Patient was evaluated this morning. He was noted to have diarrhea x 1 last night and overt bloody stool this morning, now with BRBPR x 1. He has mild abdominal discomfort but denies fevers, chills, nausea, vomiting. He is receiving heparin sq 500u q12h for DVT prophylaxis. Patient has no other complaints, no SOB or chest pain. No limb pain. Objective Vitals Vital Signs Date Time Temp Pulse Resp B/P (MAP) Pulse Ox O2 Delivery O2 Flow Rate FiO2 05/07/17 04:00 98.9 85 20 144/67 (92) 100 05/07/17 00:00 99.1 83 20 160/70 (100) 99 05/06/17 20:00 98.9 87 20 163/74 (103) 99 05/06/17 16:00 99.3 89 18 146/61 (89) 98 05/06/17 12:00 98.7 92 18 153/67 (95) 99 I/O 05/06/17 05/06/17 05/06/17 05/07/17 05/07/17 05/07/17 07:00 15:00 23:00 07:00 15:00 23:00 Intake Total 1140 ml 300 ml Output Total 550 ml 500 ml 600 ml Balance -550 ml 640 ml -300 ml Intake Oral 1140 ml 300 ml Output Urine Total 550 ml 500 ml 600 ml # Bowel Movements 1 0 Result Diagram: 05/06/17 0817 05/06/17 0717 Imaging Last Impressions Chest X-Ray 05/03/17 0000 Signed Impressions: Service Date/Time: Wednesday, May 03, 2017 09:37 - CONCLUSION: No acute cardiopulmonary disease. Red Toro MD Catheter Placement X-Ray 05/01/17 0000 Signed Impressions: Service Date/Time: April 11:25 - CONCLUSION: Uncomplicated PermaCath placement as above. Dmitriy Kumar MD Liver Ultrasound 04/24/17 0000 Signed Impressions: Service Date/Time: April 15:02 - CONCLUSION: 1. Mild hepatomegaly with increased hepatic echogenicity likely reflecting hepatic steatosis versus medical liver disease. 2. Cholelithiasis with mildly distended gallbladder and gallbladder wall thickening which may be chronic in etiology. Further evaluation may be performed with HIDA scan if there is significant clinical concern regarding acute cholecystitis. Dmitriy Kumar MD Renal Ultrasound 04/22/17 0000 Signed Impressions: Service Date/Time: Saturday, April 22, 2017 21:27 - CONCLUSION: No obstructive uropathy or other acute abnormality. Incidentally seen benign-appearing left renal cyst. Ash Mason MD Head CT 04/21/17 0000 Signed Impressions: Service Date/Time: Friday, April 21, 2017 18:29 - CONCLUSION: Normal noncontrast head CT. Ash Mason MD Objective Remarks GENERAL: This is a thin male, lying in bed in NAD. SKIN: No rashes, ecchymoses or lesions outside of RLE as noted below. Perm cath in place with no draining or erythema noted. Dialysis in process. HEAD: Atraumatic. Normocephalic. EYES: Pupils equal round and reactive. Extraocular motions intact. CARDIOVASCULAR: Regular rate and rhythm without murmurs, gallops, or rubs. RESPIRATORY: Clear to auscultation. Breath sounds equal bilaterally. No wheezes , rales, or rhonchi. GASTROINTESTINAL: Abdomen soft, non-tender, nondistended. No hepato-splenomegaly , or palpable masses. No guarding. MUSCULOSKELETAL: RLE with [id number] amputation, no drain, with stitches intact. No erythema or drainage noted at surgical site. Also sutures appreciated in the R inguinal area with no drainage or erythema. Skin is warm above level of amputation. LLE warm to touch, +palpated left DP pulse : Montalvo in place with no erythema or discharge appreciated. RECTAL: acute blood in stool noted, mixed with stool NEUROLOGICAL: Cranial nerves grossly intact. Moving LLE and upper extremities spontaneously. Answers questions appropriately. Medications and IVs Inpatient Medications Acetaminophen (Tylenol) 650 mg UNSCH PRN PO for headach, pain, temp > 101F Last administered on 05/05/17at 08:21; Start 04/24/17 at 07:00 Albumin Human 100 ml @ 60 mls/hr UNSCH PRN IV WITH DIALYSIS Last administered on 04/24/17at 09:22; Start 04/24/17 at 07:00 Albuterol Sulfate (Albuterol Neb) 2.5 mg ONCE ONCE NEB Last administered on at 06:50; Start 04/24/17 at 06:30; Stop 04/24/17 at 06:31; Status DC Amlodipine Besylate (Norvasc) 10 mg DAILY PO Last administered on 05/07/17at 09: 04; Start 05/04/17 at 09:00 Aspirin (Aspirin Chew) 162 mg DAILY PO ; Start 04/23/17 at 15:15; Stop 04/23/17 at 16:21; Status DC Calcium Chloride 1 gm/Dextrose 110 ml @ 110 mls/hr NOW ONCE IV ; Start at 06:45; Stop 04/24/17 at 06:45; Status DC Calcium Gluconate 1 gm/Dextrose 110 ml @ 110 mls/hr ONCE ONCE IV Last administered on 04/24/17at 07:35; Start 04/24/17 at 06:30; Stop 04/24/17 at 07:29 ; Status DC Calcium Gluconate 1 gm/Sodium Chloride 110 ml @ 110 mls/hr ONCE ONCE IV Last administered on 04/26/17at 12:35; Start 04/26/17 at 11:15; Stop 04/26/17 at 12:14 ; Status DC Calcium Gluconate 2 gm/Dextrose 120 ml @ 120 mls/hr ONCE ONCE IV Last administered on 04/23/17at 00:12; Start 04/23/17 at 23:30; Stop 04/24/17 at 00:29 ; Status DC Cefazolin Sodium (Ancef Inj) 2,000 mg ONCE ONCE IV ; Start 04/24/17 at 19:42; Stop 04/24/17 at 19:57; Status DC Cefazolin Sodium 2000 mg/Sodium Chloride 120 ml @ 240 mls/hr RESIDENTIAL LEASING MANAGER IV Last administered on 05/01/17at 12:02; Start 04/30/17 at 14:30 Ceftriaxone Sodium 1000 mg/ Sodium Chloride 100 ml @ 200 mls/hr Q24H IV ; Start 04/23/17 at 15:00; Stop 04/23/17 at 15:12; Status DC Chlorhexidine Gluconate (Chlorhexidine 2% Cloth) 3 pack UNSCH PRN TOP HYGIENIC CARE; Start 04/21/17 at 21:15 Clonidine (Catapres) 0.1 mg UNSCH PRN PO for BP > 180/100 X 2 readings Last administered on 05/02/17at 23:38; Start 04/24/17 at 07:00 Desmopressin Acetate 5 mcg/ Sodium Chloride 51.25 ml @ 100 mls/hr ONCE ONCE IV ; Start 04/26/17 at 15:45; Stop 04/26/17 at 16:15; Status DC Dextrose (D50w (Vial) Inj) 50 ml UNSCH PRN IV PUSH HYPOGLYCEMIA-SEE COMMENTS; Start 04/25/17 at 08:15 Dextrose/Sodium Chloride 1,000 ml @ 200 mls/hr Q5H IV ; Start 04/22/17 at 17:00 ; Stop 04/22/17 at 18:46; Status DC Diphenhydramine HCl (Benadryl) 25 mg Q4H PRN PO SEE LABEL COMMENTS; Start 05/01 at 10:00 Epoetin Cristian (Epogen Inj) 10,000 units UNSCH PRN IV PUSH WITH DIALYSIS Last administered on 05/05/17at 11:12; Start 04/25/17 at 13:00 Famotidine (Pepcid Inj) 10 mg Q12HR IV PUSH Last administered on 05/01/17at 22: 19; Start 04/23/17 at 21:00; Stop 05/02/17 at 12:02; Status DC Fluconazole (Diflucan) 100 mg DAILY PO Last administered on 05/07/17at 09:04; Start 05/04/17 at 09:00; Stop 05/08/17 at 08:59 Furosemide (Lasix Inj) 40 mg ONCE ONCE IV PUSH Last administered on 04/24/17at 07:32; Start 04/24/17 at 06:30; Stop 04/24/17 at 06:31; Status DC Gelatin (Gelfoam 12 Mm/7 Mm Top) 1 foam UNSCH PRN TOP SEE LABEL COMMENTS; Start 04/24/17 at 07:00 Gentamicin Sulfate (Gentamicin Inj) 20 mg UNSCH PRN OTHER WITH DIALYSIS Last administered on 05/05/17at 11:13; Start 04/24/17 at 07:00 Glucagon (Glucagon Inj) 1 mg UNSCH PRN OTHER HYPOGLYCEMIA-SEE COMMENTS; Start 04/25/17 at 08:15 Heparin Sodium (Porcine) (Heparin Inj) UNSCH PRN IV FLUSH SEE PROTOCOL; Start 05/01/17 at 12:00 Heparin Sodium/ Dextrose 250 ml @ 12.438 mls/ hr TITRATE PRN IV Coagulation Management Last administered on 04/23/17at 23:04; Start 04/23/17 at 20:45; Stop 04/29/17 at 11:01; Status DC Hydralazine HCl (Apresoline Inj) 10 mg Q6H PRN IV PUSH SBP> OR = 180, DBP> OR = 100 Last administered on 04/23/17at 01:05; Start 04/21/17 at 21:30 Hydromorphone HCl (Dilaudid Pf Inj) 0.2 mg Q4H PRN IV PUSH BREAKTHROUGH PAIN Last administered on 04/28/17at 08:49; Start 04/23/17 at 23:30 Insulin Aspart (NovoLOG SUPPLEMENTAL SCALE) 1 Q4H SQ Last administered on at 05:09; Start 04/25/17 at 09:00 Insulin Aspart (NovoLOG INJ) 5 units TIDAC SQ Last administered on 04/23/17at 17 :00; Start 04/22/17 at 18:45; Stop 04/24/17 at 04:34; Status DC Insulin Detemir (Levemir Inj) 10 units Q12HR SQ Last administered on 05/07/17at 09:05; Start 05/05/17 at 21:00 Insulin Human Regular (NovoLIN R INJ) 10 units ONCE ONCE IV PUSH Last administered on 04/24/17at 05:30; Start 04/24/17 at 04:45; Stop 04/24/17 at 04:46 ; Status DC Insulin Human Regular 100 units/ Sodium Chloride 100 ml @ 2 mls/hr TITRATE PRN IV Blood Glucose Control; Start 04/24/17 at 10:15; Stop 04/25/17 at 08:11; Status DC Levofloxacin/ Dextrose 100 ml @ 100 mls/hr Q48H IV Last administered on at 16:00; Start 04/25/17 at 16:00; Stop 05/02/17 at 15:59; Status DC Mannitol (Mannitol Inj) 12.5 gm UNSCH PRN IV WITH DIALYSIS; Start 04/24/17 at 07:00 Miscellaneous Information ALL NURSING DEPARTME... UNSCH PRN .XX SEE LABEL COMMENTS; Start 04/26/17 at 15:54; Stop 04/27/17 at 15:53; Status DC Nitroglycerin (Nitrostat Sl) 0.4 mg UNSCH PRN SL CHEST PAIN; Start 04/24/17 at 07:00 Ondansetron HCl (Zofran Inj) 4 mg UNSCH PRN IV PUSH WITH DIALYSIS; Start at 07:00 Oxycodone HCl (Roxicodone) 10 mg Q4H PRN PO PAIN 8-10 Last administered on 05/03at 22:54; Start 04/23/17 at 23:30 Pantoprazole Sodium (Protonix Inj) 40 mg Q12HR IV PUSH ; Start 05/07/17 at 09:00 Potassium Chloride 100 ml @ 50 mls/hr Q2H PRN IV SEE LABEL COMMENTS; Start 01/27 at 21:15; Stop 04/22/17 at 18:46; Status DC Rifaximin (Xifaxan) 550 mg BID PO Last administered on 05/01/17at 22:18; Start 04/24/17 at 09:00; Stop 05/02/17 at 11:15; Status DC Sodium Bicarbonate 50 meq/Dextrose 1,000 ml @ 150 mls/hr Q6H40M IV Last administered on 04/25/17at 04:54; Start 04/23/17 at 17:15; Stop 04/25/17 at 08:11 ; Status DC Sodium Bicarbonate 50 meq/Sterile Water 900 ml @ 75 mls/hr Q12H IV ; Start at 16:00; Stop 04/23/17 at 17:08; Status DC Sodium Polystyrene Sulfonate (Kayexalate Liq) 30 gm ONCE ONCE PO Last administered on 04/24/17at 07:32; Start 04/24/17 at 06:30; Stop 04/24/17 at 06:31 ; Status DC Sodium Bicarbonate (Sodium Bicarbonate 8.4% Inj) 100 meq ONCE ONCE IV PUSH Last administered on 04/24/17at 07:31; Start 04/24/17 at 06:30; Stop 04/24/17 at 06:31; Status DC Sodium Chloride (NS Flush) UNSCH PRN IV FLUSH SEE PROTOCOL; Start 05/01/17 at 12:00 Sodium Chloride 38.5 meq/Sterile Water 1,009.625 ml @ 84 mls/hr Q12H2M IV Last administered on 04/23/17at 08:02; Start 04/22/17 at 20:00; Stop 04/23/17 at 16:05 ; Status DC Sodium Phosphate 15 mmol/Sodium Chloride 105 ml @ 25 mls/hr UNSCH PRN IV SEE LABEL COMMENTS; Start 04/21/17 at 21:15 Tamsulosin HCl (Flomax) 0.4 mg HS PO Last administered on 05/06/17at 22:03; Start 05/03/17 at 21:00 Vancomycin/Sodium Chloride 200 ml @ 200 mls/hr RESIDENTIAL LEASING MANAGER IV Last administered on 05/01/17at 12:04; Start 04/30/17 at 14:30 Water (Free Water) 200 ml Q6HR PO Last administered on 04/24/17at 06:00; Start 04/23/17 at 18:00; Stop 04/29/17 at 11:01; Status DC Urinary Catheter: No Vascular Central Line Catheter: No Line: Central Venous Catheter Side: Right Location: Jugular A/P Assessment and Plan Patient is 67 year old Male with PMHx of HTN and DM presented to ED via EVAC due to 1 wk hx of decreased po intake. Patient found to be altered, hypertensive with blood glucose greater than 900, elevated anion gap of 29, beta hydroxy of 11.9. Patient admitted to management of DKA. Transitioned to SQ insulin on 04/22. Of note, communication with the patient has been difficult at times. [employer] lang interpreter was used on 04/23 as patient is primarily Greenlandic speaking, and the lang interpreter could not understand the patient. Nursing staff and medical team has been able to communicate with the patient in [place]an successfully at times but he occasionally slurs his speech/is not understandable. On 04/23 patient was found to have significant transaminitis as well as worsening renal function. Nephrology, GI consulted. A discussion was had with the patient's on 04/23 and she stated that all of the patient's symptoms (including his R leg stiffness/loss of function) were new and that he had been found down for up to 5 hours before coming to the ER. Vascular was consulted at that time and it was noted that patient had no palpable pulses, either femoral, popliteal, dorsalis pedis or post tibial. Ultrasound revealed complete occlusion of blood flow to the R leg and patient was immediately taken to the OR for R leg clot fasciotomy thrombectomy. On 04/24 patient was found to have worsening renal function with Creatinine of 4.85 and a Potassium of 7.1. R int jugular vascular cath was placed and patient underwent HD at that time. Labs were indicative of rhabdomyolysis. Right above knee amputation with wound vac was performed on 04/24. Received one blood transfusion following the procedure. S/P closure of amputation site on 04/27 with drain removal 04/29. Getting HD MWF. Unclear clinical course ahead. Palliative care consulted 04/29 to further elucidate goals of care, appreciate recommendations. PermCath placed 05/01 for continued outpatient dialysis. Case management working on rehab discharge planning, possibly to [facility] (if [facility] bed available). 05/05: Urology consulted 05/04 to assist with urinary retention - recommending Montalvo catheter for 7 days, Flomax before another trial without the catheter. Follow up with urology as outpatient 05/06: no changes in management, pt stable 05/07: bloody stool this morning with subsequent BPBPR. Stool studies including C -diff sent. Will consult GI at this time. Hold heparin, pt NPO, MIVF started, Protonix 40mg IV BID. Has permcath access. Serial H&H and coag profile. Nephrology managing, appreciate assistance in this patient's care. Critical Care signed off 04/28. * Neuro: intermittent AMS resolved, Dementia * Initially presented with altered mental status, confusion. Has resolved and patient oriented 3 with no signs of delirium * No previous CVA history * Lipid profile showing triglycerides 200, cholesterol 155, LDL 102, HDL 12.6, A1c 17.7 * Will initiate atorvastatin once liver function is stable, likely as outpt * Rehab at discharge * CV: Hx CABG remotely, Intermittent bradycardia, HTN, critical limb ischemia s/ p amputation * Echo 04/24 showing EF 60-65%, normal LV size, no noted wall motion abnormalities * Vascular surgery performed R leg clot fasciotomy thrombectomy on 04/23. * Right above knee amputation with wound vac was performed on 04/24. * Amputation closure performed 04/26 * Increased Amlodipine to 10mg as patient was persistently hypertensive. * GI: acute transaminitis, difficulty swallowing, hyperammonemia * LFTs were normal admission, then became significantly elevated most likely secondary to rhabdomyolysis. Returned to baseline following IV fluids and amputation of the right leg above the knee. * US Liver on 04/24 showed findings consistent with hepatic steatosis versus medical liver disease. Cholelithiasis noted. * Hepatitis panel negative. * FEN/RENAL: acute renal failure complicated by chronic kidney disease, hypoalbuminemia, hypocalcemia, rhabdomyolysis * Creatinine elevated on admission at 3.42. Worsened after patient went into rhabdo. Nephrology was consult and patient has been on hemodialysis MWF since * Renal US normal * Nephrology consulted, appreciate recommendations * Will likely need HD for 6 weeks, nephrology will set this up as outpt * Attempted to DCd Montalvo on 05/02 - required straight cath over next 24 hours due to inability to urinate - started Flomax on 05/03. Still urinary retention on 05/04 so reordered Montalvo and will try again in 7 days. * Urology consulted and recommending 7 days with Montalvo before another trial. Continue Flomax and follow up with urology as outpatient * ID: UTI complicated by male gender, race, urethral injury, Leukocytosis 04/29 * Found to have UTI on admission with cultures growing Klebsiella, group B strep and was treated with Levaquin for 10 day course * Leukocytosis on admission resolved but recurred 04/29, repeat UA at that time grew Joslyn and patient was started on Diflucan on 05/03. Leukocytosis currently resolved as of 05/05 * Will complete Diflucan for 14 day course * HEME: rhabdomyolysis, acute blood loss anemia, anemia of chronic disease, acute lower GI bleed 05/07 * Goal Hgb > 7 * Nephrology started Epoetin 10,000 units with dialysis * Status post 2 units of packed red blood cells following amputation on 04/24, 1 unit on 05/01 * H/H stable since that time * Monitor CBC, PRBCs for Hgb <7 or sx * ENDO: Diabetes * Hyperglycemia: HHS on admission, resolved on 04/22 but insulin drip resumed on 04/24. Discontinued insulin drip and started SSI on 04/25 * A1c 17.7 * perinatal educator, material assistant consulted * TSH wnl * Patient now cleared for regular diet, Increased Levemir to 10 units BID, will continue and monitor closely * PROPH/LINES: * Heparin 5000U sq q12h, HOLD FOR ACUTE GIB 05/07 * PermCath 05/01/17 Discharge Planning Pending workup on 05/07 for acute GIB Anticipate transition to remote computer terminal operator care facility (or SNF) with dialysis, rehab, medication administration. Case Management consulted for SNF placement DW Dr. Bernard, SDW Dr. Cheung Problem List: (1) Hyperammonemia ICD Codes: E72.20 - Disorder of urea cycle metabolism, unspecified Status: Acute (2) Compartment syndrome ICD Codes: T79.A0XA - Compartment syndrome, unspecified, initial encounter Status: Acute (3) Diabetes mellitus ICD Codes: E11.9 - Diabetes mellitus Status: Chronic (4) Hypertension ICD Codes: I10 - Hypertension Status: Acute (5) Acute renal failure ICD Codes: N17.9 - Acute kidney failure, unspecified Status: Acute (6) Hypernatremia ICD Codes: E87.0 - Hyperosmolality and hypernatremia Status: Resolved (7) Hyperkalemia ICD Codes: E87.5 - Hyperkalemia Status: Acute (8) UTI (urinary tract infection) ICD Codes: N39.0 - Urinary tract infection, site not specified Status: Acute (9) Transaminitis ICD Codes: R74.0 - Nonspecific elevation of levels of transaminase and lactic acid dehydrogenase [LDH] Problem Qualifiers (1) Acute renal failure: Qualified Codes: N17.9 - Acute kidney failure, unspecified (2) UTI (urinary tract infection): Qualified Codes: N10 - Acute pyelonephritis Roma Armijo MD May 07, 2017 09:36
[2017-05-07 10:23] LABS: BASOPHIL # 0.1 TH/MM3 (0-0.2); BASOPHIL % 0.8 % (0.0-2.0); EOSINOPHIL # 0.1 TH/MM3 (0-0.4); EOSINOPHIL % 0.9 % (0.0-4.0); HEMATOCRIT 25.2 % (39.0-51.0); HEMOGLOBIN 8.5 GM/DL (13.0-17.0); LYMPH % 17.7 % (9.0-44.0); LYMPHOCYTE # 1.5 TH/MM3 (1.0-4.8); MEAN CELL VOLUME 93.9 FL (80.0-100.0); MEAN CORPUSCULAR HEMOGLOBIN 31.9 PG (27.0-34.0); MEAN PLATELET VOLUME 7.9 FL (7.0-11.0); MONO % 8.4 % (0.0-8.0); MONOCYTE # 0.7 TH/MM3 (0-0.9); NEUT % 72.2 % (16.0-70.0); PLATELET COUNT 280 TH/MM3 (150-450); RED BLOOD COUNT 2.68 MIL/MM3 (4.50-5.90); WHITE BLOOD COUNT 8.3 TH/MM3 (4.0-11.0)
[2017-05-07 10:26] LABS: PROTHROMBIN TIME - PATIENT 10.4 SEC (9.8-11.6)
[2017-05-07] MEDS: PANTOPRAZOLE SODIUM 40 MG VIAL IV PUSH SCH ×2 (10:30→21:03)
[2017-05-07] MEDS: SODIUM CHLOR 0.9% 1000 ML INJ 1,000 ML IV SCH ×2 (10:31→20:06)
[2017-05-07 11:12] LABS: BICARBONATE 26.3 MEQ/L (21.0-32.0); CALCIUM 8.4 MG/DL (8.5-10.1); CREATININE 4.51 MG/DL (0.60-1.30)
--- NOTE | 2017-05-07 11:43 | PD.CONS ---
HPI History of Present Illness This is a 67 year old M with medical history significant for CABG x 4 in 2010, DM, previously on Metformin, however stopped taking the Metformin quite some time ago because has not seen a PCP. Pt is a very poor historian and is able to answer some questions that he can not. However, most of the history obtained through chart review. Per pts , pt has been increasingly thirsty over the past week, states has not eaten much solid food and has only been drinking water and eating soup. She brought him into the ER on Friday where he was found to be in DKA. Currently admitted to ICU. Our service has been consulted to evaluate pt for transaminitis. LFTs were WNL on admission, now AST -2101 ALT-335 Alk phos-139 T bili-1. Pt denies history of liver issues. US liver--> Mild hepatomegaly with increased hepatic echogenicity likely reflect hepatic steatosis vs medical liver disease. Hepatptis panel negative, MAUDE, ASMA negative, AMA <20, Celiac panel negative. [id number] Ceruloplasmin-28 Pt denies ETOH, illicit drug use, not taking any prescription medications, denies taking any OTC medications. Last EGD noted in chart 2008 --> Hiatal hernia. Gastric AVMs S/P cautery. Erosive gastritis. Pt reports previous colonoscopy done here, not seen in chart. (05/07) Reconsult for BRBPR. Pt remains a poor historian and reports one isolated episodes rectal bleeding this AM. Per RN he has had 3 episodes of quiana bleeding from rectum. Pt states abdominal pain prior to the BMs described as a pressure which seemed to resolve after BMs. Last H/H done at 8:50 AM this morning which revealed H/H of 8.5/ 25.2 which has been stable since the when he last received a blood transfusion. Does report some diarrhea that began yesterday but denies any blood until today. Denies nausea, vomiting, acid reflux, heartburn, dysphagia, odynophagia. Since we previously were following pt he has had a right above the knee amputation S/P right leg clot fasciotomy thrombectomy for complete occlusion of blood flow to right leg. Labs indicative of rhabdomyolysis and pt is now on HD MWF. (Yesi Edmond) PFSH Past Medical History Myocardial infarction s/p stent placement Coronary artery disease Diabetes mellitus Peripheral arterial disease Hypertension Upper GI bleed due to gastric AVMs, s/p cautery in 2009 Hypokalemia Erosive gastritis CABG x 4 . Past Surgical History CABG x 4 07/02/2010 EGD in 2008 Left heart catheterization, 2010 R AKA (Yesi Edmond) Coded Allergies: No Known Allergies (Verified Allergy, Unknown, 04/22/17) Family History Mother at age 99 . Social History Denies ETOH Smoke 1 PPD Denies illicit drug use Lives with (Yesi Edmond) Review of Systems Gastrointestinal: COMPLAINS OF: Abdominal pain, Bloody stools, Diarrhea, DENIES : Nausea, Vomiting (Yesi Edmond) GI Exam Vitals I&O Vital Signs Date Time Temp Pulse Resp B/P (MAP) Pulse Ox O2 Delivery O2 Flow Rate FiO2 05/07/17 09:00 65 18 111/50 (70) 100 05/07/17 04:00 98.9 85 20 144/67 (92) 100 05/07/17 00:00 99.1 83 20 160/70 (100) 99 05/06/17 20:00 98.9 87 20 163/74 (103) 99 05/06/17 16:00 99.3 89 18 146/61 (89) 98 05/06/17 12:00 98.7 92 18 153/67 (95) 99 I/O 05/06/17 05/06/17 05/06/17 05/07/17 05/07/17 05/07/17 06:59 14:59 22:59 06:59 14:59 22:59 Intake Total 1140 ml 300 ml Output Total 550 ml 500 ml 600 ml Balance -550 ml 640 ml -300 ml Intake Oral 1140 ml 300 ml Output Urine Total 550 ml 500 ml 600 ml # Bowel Movements 1 0 Imaging Last Impressions Chest X-Ray 05/03/17 0000 Signed Impressions: Service Date/Time: Wednesday, May 03, 2017 09:37 - CONCLUSION: No acute cardiopulmonary disease. Red Toro MD Catheter Placement X-Ray 05/01/17 0000 Signed Impressions: Service Date/Time: April 11:25 - CONCLUSION: Uncomplicated PermaCath placement as above. Dmitriy Kumar MD Liver Ultrasound 04/24/17 0000 Signed Impressions: Service Date/Time: April 15:02 - CONCLUSION: 1. Mild hepatomegaly with increased hepatic echogenicity likely reflecting hepatic steatosis versus medical liver disease. 2. Cholelithiasis with mildly distended gallbladder and gallbladder wall thickening which may be chronic in etiology. Further evaluation may be performed with HIDA scan if there is significant clinical concern regarding acute cholecystitis. Dimtriy Kumar MD Renal Ultrasound 04/22/17 0000 Signed Impressions: Service Date/Time: Saturday, April 22, 2017 21:27 - CONCLUSION: No obstructive uropathy or other acute abnormality. Incidentally seen benign-appearing left renal cyst. Ash Mason MD Head CT 04/21/17 0000 Signed Impressions: Service Date/Time: Friday, April 21, 2017 18:29 - CONCLUSION: Normal noncontrast head CT. Ash Mason MD Laboratory Test 05/07/17 08:50 05/07/17 08:56 05/07/17 10:10 White Blood Count 8.3 TH/MM3 Red Blood Count 2.68 MIL/MM3 Hemoglobin 8.5 GM/DL Hematocrit 25.2 % Mean Corpuscular Volume 93.9 FL Mean Corpuscular Hemoglobin 31.9 PG Mean Corpuscular Hemoglobin Concent 34.0 % Red Cell Distribution Width 16.0 % Platelet Count 280 TH/MM3 Mean Platelet Volume 7.9 FL Neutrophils (%) (Auto) 72.2 % Lymphocytes (%) (Auto) 17.7 % Monocytes (%) (Auto) 8.4 % Eosinophils (%) (Auto) 0.9 % Basophils (%) (Auto) 0.8 % Neutrophils # (Auto) 6.0 TH/MM3 Lymphocytes # (Auto) 1.5 TH/MM3 Monocytes # (Auto) 0.7 TH/MM3 Eosinophils # (Auto) 0.1 TH/MM3 Basophils # (Auto) 0.1 TH/MM3 CBC Comment DIFF FINAL Differential Comment Blood Urea Nitrogen 30 MG/DL Creatinine 4.51 MG/DL Random Glucose 168 MG/DL Calcium Level 8.4 MG/DL Sodium Level 136 MEQ/L Potassium Level 3.8 MEQ/L Chloride Level 99 MEQ/L Carbon Dioxide Level 26.3 MEQ/L Anion Gap 11 MEQ/L Estimat Glomerular Filtration Rate 13 ML/MIN Prothrombin Time 10.4 SEC Prothromb Time International Ratio 1.0 RATIO Activated Partial Thromboplast Time 22.9 SEC Date/Time Source Procedure Growth Status 05/03/17 12:47 Blood Peripheral Aerobic Blood Culture - Preliminary NO GROWTH IN 4 DAYS Resulted 05/03/17 12:47 Blood Peripheral Anaerobic Blood Culture - Preliminary NO GROWTH IN 4 DAYS Resulted 05/04/17 16:00 Urine Clean Catch Urine Culture - Final Joslyn Albicans Complete Physical Examination HEENT: Normocephalic; atraumatic CHEST: Even/unlabored CARDIAC: RRR ABDOMEN: Soft, nondistended, nontender; bowel sounds active EXTREMITIES: R AKA SKIN: Normal; no rash; no jaundice. 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 (Yesi Edmond) Assessment and Plan Plan Assessment: RECONSULT FOR RECTAL BLEEDING - BRBPR- reports of 3 episodes of rectal bleeding that began this AM. States diarrhea yesterday but no bleeding. H/H last checked at 8 this morning 8.5/25.2 stable since last transfusion on May 02. Pt reports previous colonoscopy at this facility, however no record of this and he is a poor historian. Denies nausea, vomiting, acid reflux, heartburn. Last EGD noted in chart 2008 --> Hiatal hernia. Gastric AVMs S/P cautery. Erosive gastritis - Transaminitis- LFTs WNL on admission, now markedly elevated Currently: AST-2101 ALT-335 Alk phos-139 T bili-1. Denies history of liver issues. Denies ETOH, illicit drug use. Does not take any prescription or OTC drugs. No hypotensive episodes since admission. No recent abdominal imaging. Likely secondary to rhabdomyolysis Liver PHILIP was done as follows: US liver--> Mild hepatomegaly with increased hepatic echogenicity likely reflect hepatic steatosis vs medical liver disease. Hepatitis panel negative, MAUDE, ASMA negative, AMA <20, Celiac panel negative. [id number] Ceruloplasmin-28 LFTs now WNL - DKA- ABG- pCO2-25 HCO3-11 base excess-15.2. Subq and IV insulin, hgb A1C-17.7 - Rhabdomyolysis, compartment syndrome, complete occlusion of blood supply to R leg S/P right leg clot fasciotomy thrombectomy and R AKA - CHANELL on CKD- GFR-13 - now on dialysis M,W, F Plan: Colonoscopy tomorrow Obtain consent Clear liquids today GoLytely prep NPO after MN Serial H/H- q6hr ordered per attending Heparin on hold Protonix Further recommendations based on findings of above Pt has been seen and examined by myself and Dr. Brown and this note is written on his behalf (Yesi Edmond) Physician Comments Patient seen and examined Agree with above Continue with current supportive care Monitor labs Plan colonoscopy tomorrow (Ervin Brown MD) Yesi Edmond May 07, 2017 11:43 Ervin Brown MD May 07, 2017 21:40
--- NOTE | 2017-05-07 14:36 | HHI.NPPN ---
Subjective History of Present Illness 67 year old with Hypertension,DKA, DM, ARF Additional Remarks doing better Objective Data Data Vital Signs Date Time Temp Pulse Resp B/P (MAP) Pulse Ox O2 Delivery O2 Flow Rate FiO2 05/07/17 12:00 97.6 93 17 142/72 (95) 100 05/07/17 09:00 65 18 111/50 (70) 100 05/07/17 08:00 98.2 104 19 115/73 (87) 100 05/07/17 04:00 98.9 85 20 144/67 (92) 100 05/07/17 00:00 99.1 83 20 160/70 (100) 99 05/06/17 20:00 98.9 87 20 163/74 (103) 99 05/06/17 16:00 99.3 89 18 146/61 (89) 98 -: 05/07/17 0850 05/07/17 0856 Microbiology 05/07/17 Stool Occult Blood (ANN) - Final, Complete HEMOCCULT POSITIVE 05/07/17 , Received Pending Physical Exam General Appearance: Well Developed, Well Nourished Neck Neck Exam: Neck Supple Pulmonary Resp Exam: Clear Bilaterally, Breath Sounds Equal Cardiology CV Exam: Regular, Normal Sinus Rhythm Gastrointestinal/Abdomen GI Exam: Soft, Non-Tender, Bowel Sounds Present Extremeties Extremities Exam: Moderate Edema Extremeties Remarks Rt AKA Neurologic Neuro Exam: Alert Assessment/Plan Problem List: (1) Acute renal failure ICD Codes: N17.9 - Acute kidney failure, unspecified Status: Acute Plan: Patient has chronic kidney disease and acute renal failure with rhabdomyolysis creatinine 4.53 -> 5.9 -> 7.2 -> 5.3 -> 6.3->5.09 -> 5.5 ->4.5-> 5.3->5.4->3.8- > 4.5 UOP 1.1 L may decrease frequency to twice a week as passing more urine On HD MF - yesterday UF 0.9 L tolerates it well PermCath placed ARF due to Rhabdo will wait [address] AVF he may transfer to rehab on Diflucan Right lower leg ischemia now status post right AKA On Epogen for anemia - transfuse as needed. (2) CKD (chronic kidney disease) stage 3, GFR 30-59 ml/min ICD Codes: N18.3 - Chronic kidney disease, stage 3 (moderate) Status: Chronic Plan: kidney ultrasound left renal cyst (3) Diabetes ICD Codes: E11.9 - Type 2 diabetes mellitus without complications Status: Chronic Plan: History of DKA continue to monitor (4) Hypertension ICD Codes: I10 - Hypertension Status: Acute Plan: BP stable (5) DKA (diabetic ketoacidoses) ICD Codes: E13.10 - Other specified diabetes mellitus with ketoacidosis without coma Status: Acute Plan: Resolved (6) Hypernatremia ICD Codes: E87.0 - Hyperosmolality and hypernatremia Status: Resolved Problem Qualifiers (1) Acute renal failure: Qualified Codes: N17.9 - Acute kidney failure, unspecified Natacha Suarez MD May 07, 2017 14:36
--- NOTE | 2017-05-07 14:52 | HHI.HCPN ---
Reason for visit a. To assist with evaluation and management of symptoms including:Pain, debility b. To assist medical decision maker(s) with: better understanding of current medical conditions; weighing benefits/burdens of medical treatment options; making medical treatment decisions. Subjective/Interval History Follow-up on symptom management and goals of care. Patient is sitting up in bed eating lunch. Diet changed to clear liquid diet for possible colonoscopy tomorrow. GI Dr. Brown reconsulted 05/07/17 to evaluate bright red blood per rectum. Patient was noted to have a bloody stool today. Heparin placed on hold. Currently patient denies pain. Laboratory workup today revealing hemoglobin 8.5, hematocrit 25.2, platelet count 280, PT 10.4, INR 1.0, APTT 22.9. Serial H&H ordered. Telephone conversation with patient`s Mariann, updated her on patient`s status and plan for colonoscopy tomorrow by GI. Both patient and patient's are agreeable to colonoscopy scheduled for tomorrow. . Family/friend interactions Telephone conversation with patient's . Advance Directives Living Will: Never completed Health Care Surrogate: Copy in medical record Durable Power of Primary Care Provider: Never completed Advance Directive Specifics Date completed: 04/29/2017 . Health Care Surrogate(s): [facility]-Spouse- Mariann Lozano-[phone] Alternate [facility]- DajuanMorris . Objective Vital Signs Date Time Temp Pulse Resp B/P (MAP) Pulse Ox O2 Delivery O2 Flow Rate FiO2 05/07/17 12:00 97.6 93 17 142/72 (95) 100 05/07/17 09:00 65 18 111/50 (70) 100 05/07/17 08:00 98.2 104 19 115/73 (87) 100 05/07/17 04:00 98.9 85 20 144/67 (92) 100 05/07/17 00:00 99.1 83 20 160/70 (100) 99 05/06/17 20:00 98.9 87 20 163/74 (103) 99 05/06/17 16:00 99.3 89 18 146/61 (89) 98 Intake & Output 05/07/17 05/07/17 07:00 19:00 Intake Total 300 ml Output Total 600 ml Balance -300 ml Intake Oral 300 ml Output Urine Total 600 ml # Bowel Movements 0 Physical Exam CONSTITUTIONAL/GENERAL: This is an adequately nourished patient, in no apparent distress. TUBES/LINES/DRAINS: Vas Cath, RAC PIV SKIN: No jaundice, rashes, or lesions. Skin temperature appropriate.Ecchymoses on upper extremities.Surgical incision to R-AKA. Not diaphoretic. CARDIOVASCULAR: S1, S2, regular rhythm, controlled rate, 2/6 systolic ejection murmur, no rub no gallop. RESPIRATORY/CHEST: Symmetric, unlabored respirations. Lungs clear to auscultation. No wheezes, rales, or rhonchi. GASTROINTESTINAL: Abdomen soft, non-tender, nondistended. No guarding. Bowel sounds present. GENITOURINARY: Without palpable bladder distension. Montalvo catheter in place with clear yellow colored urine MUSCULOSKELETAL: Right AKA incision well approximated, sutured, no erythema or drainage. Open to air. Left lower extremity with diminished pulse, no edema NEUROLOGICAL: Awake and alert, oriented to self and place. Motor and sensory grossly within normal limits. Follows commands. Moves all extremities. PSYCHIATRIC: No obvious anxiety/depression. no apparent hallucinations or other psychotic thought process. . Diagnostic Tests Laboratory Laboratory Tests Test 05/04/17 16:00 05/05/17 06:10 05/06/17 07:17 05/06/17 08:17 Urine Color LIGHT-YELLOW (YELLW/STRAW) Urine Turbidity CLEAR (CLEAR) Urine pH 7.5 (5.0-8.5) Urine Specific [place] 1.008 (1.002-1.035) Urine Protein 30 mg/dL (NEG-TRACE) Urine Glucose (UA) 300 mg/dL (NEG) Urine Ketones NEG mg/dL (NEG) Urine Occult Blood MOD (NEG) Urine Nitrite NEG (NEG) Urine Bilirubin NEG (NEG) Urine Urobilinogen LESS THAN 2.0 MG/DL (LESS Urine Leukocyte Esterase LARGE (NEG) Urine RBC 6 /hpf (0-3) Urine WBC 86 /hpf (0-5) Urine WBC Clumps RARE (NONE) Urine Bacteria RARE /hpf (NONE) Microscopic Urinalysis Comment CATH-CULTURE IND White Blood Count 9.4 TH/MM3 (4.0-11.0) 10.1 TH/MM3 (4.0-11.0) Red Blood Count 2.55 MIL/MM3 (4.50-5.90) 2.63 MIL/MM3 (4.50-5.90) Hemoglobin 8.1 GM/DL (13.0-17.0) 8.4 GM/DL (13.0-17.0) Hematocrit 24.2 % (39.0-51.0) 24.6 % (39.0-51.0) Mean Corpuscular Volume 95.1 FL (80.0-100.0) 93.6 FL (80.0-100.0) Mean Corpuscular Hemoglobin 31.9 PG (27.0-34.0) 31.9 PG (27.0-34.0) Mean Corpuscular Hemoglobin Concent 33.6 % (32.0-36.0) 34.1 % (32.0-36.0) Red Cell Distribution Width 15.4 % (11.6-17.2) 16.0 % (11.6-17.2) Platelet Count 239 TH/MM3 (150-450) 244 TH/MM3 (150-450) Mean Platelet Volume 8.0 FL (7.0-11.0) 7.9 FL (7.0-11.0) Neutrophils (%) (Auto) 77.2 % (16.0-70.0) 73.5 % (16.0-70.0) Lymphocytes (%) (Auto) 15.2 % (9.0-44.0) 16.3 % (9.0-44.0) Monocytes (%) (Auto) 6.3 % (0.0-8.0) 8.7 % (0.0-8.0) Eosinophils (%) (Auto) 0.8 % (0.0-4.0) 0.7 % (0.0-4.0) Basophils (%) (Auto) 0.5 % (0.0-2.0) 0.8 % (0.0-2.0) Neutrophils # (Auto) 7.2 TH/MM3 (1.8-7.7) 7.4 TH/MM3 (1.8-7.7) Lymphocytes # (Auto) 1.4 TH/MM3 (1.0-4.8) 1.6 TH/MM3 (1.0-4.8) Monocytes # (Auto) 0.6 TH/MM3 (0-0.9) 0.9 TH/MM3 (0-0.9) Eosinophils # (Auto) 0.1 TH/MM3 (0-0.4) 0.1 TH/MM3 (0-0.4) Basophils # (Auto) 0.0 TH/MM3 (0-0.2) 0.1 TH/MM3 (0-0.2) CBC Comment DIFF FINAL DIFF FINAL Differential Comment Blood Urea Nitrogen 41 MG/DL (7-18) 26 MG/DL (7-18) Creatinine 5.47 MG/DL (0.60-1.30) 3.89 MG/DL (0.60-1.30) Random Glucose 83 MG/DL (74-106) 95 MG/DL (74-106) Total Protein 5.7 GM/DL (6.4-8.2) Albumin 2.1 GM/DL (3.4-5.0) Calcium Level 8.2 MG/DL (8.5-10.1) 8.4 MG/DL (8.5-10.1) Alkaline Phosphatase 86 U/L (45-117) Aspartate Amino Transf (AST/SGOT) 26 U/L (15-37) Alanine Aminotransferase (ALT/SGPT) 15 U/L (12-78) Total Bilirubin 0.4 MG/DL (0.2-1.0) Sodium Level 141 MEQ/L (136-145) 137 MEQ/L (136-145) Potassium Level 3.5 MEQ/L (3.5-5.1) 3.6 MEQ/L (3.5-5.1) Chloride Level 103 MEQ/L (98-107) 100 MEQ/L (98-107) Carbon Dioxide Level 28.0 MEQ/L (21.0-32.0) 29.7 MEQ/L (21.0-32.0) Anion Gap 10 MEQ/L (5-15) 7 MEQ/L (5-15) Estimat Glomerular Filtration Rate 10 ML/MIN (>89) 15 ML/MIN (>89) Total Creatine Kinase 129 U/L (39-308) Test 05/07/17 08:46 05/07/17 08:50 05/07/17 08:56 05/07/17 10:10 Stool C. difficile Toxin (PCR) NEGATIVE (NEGATIVE) Stl C. difficile Toxin Epiderm 027 PRESUMPTIVE NEGATIVE White Blood Count 8.3 TH/MM3 (4.0-11.0) Red Blood Count 2.68 MIL/MM3 (4.50-5.90) Hemoglobin 8.5 GM/DL (13.0-17.0) Hematocrit 25.2 % (39.0-51.0) Mean Corpuscular Volume 93.9 FL (80.0-100.0) Mean Corpuscular Hemoglobin 31.9 PG (27.0-34.0) Mean Corpuscular Hemoglobin Concent 34.0 % (32.0-36.0) Red Cell Distribution Width 16.0 % (11.6-17.2) Platelet Count 280 TH/MM3 (150-450) Mean Platelet Volume 7.9 FL (7.0-11.0) Neutrophils (%) (Auto) 72.2 % (16.0-70.0) Lymphocytes (%) (Auto) 17.7 % (9.0-44.0) Monocytes (%) (Auto) 8.4 % (0.0-8.0) Eosinophils (%) (Auto) 0.9 % (0.0-4.0) Basophils (%) (Auto) 0.8 % (0.0-2.0) Neutrophils # (Auto) 6.0 TH/MM3 (1.8-7.7) Lymphocytes # (Auto) 1.5 TH/MM3 (1.0-4.8) Monocytes # (Auto) 0.7 TH/MM3 (0-0.9) Eosinophils # (Auto) 0.1 TH/MM3 (0-0.4) Basophils # (Auto) 0.1 TH/MM3 (0-0.2) CBC Comment DIFF FINAL Differential Comment Blood Urea Nitrogen 30 MG/DL (7-18) Creatinine 4.51 MG/DL (0.60-1.30) Random Glucose 168 MG/DL (74-106) Calcium Level 8.4 MG/DL (8.5-10.1) Sodium Level 136 MEQ/L (136-145) Potassium Level 3.8 MEQ/L (3.5-5.1) Chloride Level 99 MEQ/L (98-107) Carbon Dioxide Level 26.3 MEQ/L (21.0-32.0) Anion Gap 11 MEQ/L (5-15) Estimat Glomerular Filtration Rate 13 ML/MIN (>89) Prothrombin Time 10.4 SEC (9.8-11.6) Prothromb Time International Ratio 1.0 RATIO Activated Partial Thromboplast Time 22.9 SEC (24.3-30.1) Result Diagram: 05/07/17 0850 05/07/17 0856 Microbiology Microbiology Date/Time Source Procedure Growth Status 05/07/17 08:46 Stool Stool Stool Occult Blood (ANN) - Final HEMOCCULT POSITIVE Complete 05/07/17 08:46 Stool Stool Pending Received 05/04/17 16:00 Urine Clean Catch Urine Culture - Final Joslyn Albicans Complete Procedures 04/23 thrombectomy and right lower leg fasciotomy Central line placement 04/24-Vas-Cath placement 04/2553-maapw-efiw amputation of right lower extremity 04/28-revision of above-knee amputation of right lower extremity, closure 05/01-placement of PermCath . Assessment and Plan Disease Oriented Problem List: (1) Acute renal failure (2) CKD (chronic kidney disease) stage 3, GFR 30-59 ml/min (3) DKA (diabetic ketoacidoses) (4) Diabetes mellitus (5) Transaminitis (6) Compartment syndrome (7) Hypernatremia (8) Hyperammonemia Symptom Scale: (1) Pain 0-10 Scale: Unable to quantify Comment: Recent Right AKA. . (2) Debility 0-10 Scale: Unable to quantify (Recent Right AKA) Pertinent Non-Medical Issues Psychosocial:Patient is originally from [place]. He came to [place] in [place]. He got and moved to [place] with his of +25 years. 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 Patient has 2 adult children, a daughter Junior and son Dajuan. Patient lives with his . 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 Important Contacts Spouse-Mariann Lozano-[phone] Son-Morris Graff . Prognosis Mr. Loyola is a 67 years old male with a past medical history significant for coronary artery disease s/p CABG and 2 stent placement, myocardial infarction, peripheral arterial disease, diabetes mellitus, hypertension and hyperlipidemia. Patient was brought in on 04/21/17 by EMS with complaints of decreased appetite, decreased thirst for approximately a week. Clinical course complicated with worsening renal function, delirium and nonsalvageable lower extremity ischemia requiring amputation of right lower extremity. Given ongoing comorbidities, patient remains at high risk for further complications, deterioration and decline. . Code Status: No Code Plan PLAN: Legal decision maker: Patient is able to participate in medical decision making. Due to reported intermittent periods of delirium during this hospitalization, recommending medical decision making to be done in collaboration with patient`s spouse Mariann Lozano whom he also designated as his HCS or his son Nir Graff whom he designated as his alternate HCS. Goals: Aggressive short of no code. Patient referred to [facility] for a shwetha bed if available. Possible colonoscopy tomorrow CODE STATUS: DNR SYMPTOMS: * Pain: Recent right above knee amputation. Risk for phantom pain. Patient has Oxycodone 5mg -10mg q 4 hrs prn and Hydromorphone 0.2mg q 4 hrs prn. Sparingly needing prn medications. Patient states right leg causes pain when left in one position too long or when being removed. Continue assessing pain. Risk for phantom pain. Denies pain, c/o discomfort which patient states is tolerable today. * Debility: Patient recently had above the knee amputation to his right lower extremity and is currently on hemodialysis. Physical therapy consulted, recommended PT and OT at Rehab. This may be a challenging time for patient given his other comorbidities and confusion. states she would like to take him home but is willing for short-term rehabilitation as recommended by PT. Aguilar is following for possible shwetha bed admission when ready to be discharged. Palliative care will continue to follow the patient during hospital course as condition evolves, to assist patient/decision-maker with understanding of their medical conditions, weighing benefits/burdens of treatment options, for clarification of goals of treatment. Additionally will assist with any symptoms of palliative concern Attestation To help prompt me to consider important information that might be impacting today's encounter and assessment, information from prior notes written by myself or my colleagues may have been "brought forward" into today's note. My signature on this note, however, is an attestation that I personally performed the exam, history, and/or decision-making noted today, and, unless otherwise indicated, the interactions with patient, family, and staff as well as the review of records all occurred today. I also attest that the listed assessment and stated plan reflect my best clinical judgment today based on the combination of historical information, prior notes, and today's exam/ interactions. When time spent is documented, it refers only to time spent today by the signer, or if indicated, combined time spent today by collaborating physician/nurse practitioner. Ruby Wilson May 07, 2017 14:52
[2017-05-07] MEDS ORDERED: PEG (High)/E-LYTE SOLN 4000 ML BTL PO ONE (16:00)
[2017-05-07 17:19] LABS: AUTOMATED NEUTROPHIL # 7.4 TH/MM3 (1.8-7.7); BASOPHIL # 0.1 TH/MM3 (0-0.2); BASOPHIL % 0.5 % (0.0-2.0); EOSINOPHIL % 0.2 % (0.0-4.0); HEMATOCRIT 21.4 % (39.0-51.0); HEMOGLOBIN 7.2 GM/DL (13.0-17.0); LYMPH % 13.9 % (9.0-44.0); LYMPHOCYTE # 1.3 TH/MM3 (1.0-4.8); MEAN CELL VOLUME 95.8 FL (80.0-100.0); MEAN CORPUSCULAR HEMOGLOBIN 32.1 PG (27.0-34.0); MEAN CORPUSCULAR HGB CONC 33.5 % (32.0-36.0); MEAN PLATELET VOLUME 7.9 FL (7.0-11.0); MONOCYTE # 0.8 TH/MM3 (0-0.9); NEUT % 77.4 % (16.0-70.0); PLATELET COUNT 255 TH/MM3 (150-450); RED BLOOD COUNT 2.23 MIL/MM3 (4.50-5.90); RED CELL DISTRIBUTION WIDTH 15.9 % (11.6-17.2); WHITE BLOOD COUNT 9.6 TH/MM3 (4.0-11.0)
[2017-05-07] MEDS: TAMSULOSIN HCL 0.4 MG CAP PO SCH (21:02)
[2017-05-07 22:23] LABS: BASOPHIL # 0.1 TH/MM3 (0-0.2); BASOPHIL % 0.7 % (0.0-2.0); EOSINOPHIL # 0.1 TH/MM3 (0-0.4); EOSINOPHIL % 0.6 % (0.0-4.0); HEMATOCRIT 21.1 % (39.0-51.0); HEMOGLOBIN 7.1 GM/DL (13.0-17.0); LYMPH % 15.2 % (9.0-44.0); LYMPHOCYTE # 1.2 TH/MM3 (1.0-4.8); MEAN CELL VOLUME 94.2 FL (80.0-100.0); MEAN CORPUSCULAR HEMOGLOBIN 31.7 PG (27.0-34.0); MEAN CORPUSCULAR HGB CONC 33.6 % (32.0-36.0); MEAN PLATELET VOLUME 7.7 FL (7.0-11.0); MONO % 9.6 % (0.0-8.0); MONOCYTE # 0.8 TH/MM3 (0-0.9); NEUT % 73.9 % (16.0-70.0); PLATELET COUNT 271 TH/MM3 (150-450); RED BLOOD COUNT 2.24 MIL/MM3 (4.50-5.90); RED CELL DISTRIBUTION WIDTH 16.5 % (11.6-17.2); WHITE BLOOD COUNT 8.2 TH/MM3 (4.0-11.0)
[2017-05-08] VITALS (7 sets, daily range): BP systolic 163–188; BP diastolic 66–81; PULSE 76–100; RESP 18–20; TEMP 96.9–98.7; O2SAT 92–100
[2017-05-08] MEDS ORDERED: SODIUM CHLOR 0.9% 250 ML INJ 250 ML IV ONE ×2 (00:15→12:00)
[2017-05-08] MEDS ORDERED: FUROSEMIDE 20 MG/2 ML VIAL IV PUSH ONE (00:15)
--- NOTE | 2017-05-08 00:27 | HHI.PR ---
Addendum to Inpatient Note Addendum Reason: Additional Documentation Additional Information S: Patient was seen and evaluated with Dr. Dubose after a call at approximately 0000 about acute 10/10 left-sided chest pain during bed to toilet transfer. Patient now states he has no pain but does note he was dizzy during episode. The pain lasted a few minutes and then disappeared. He denies any other symptoms and is currently doing bowel prep. 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 Last H&H 7.1 prior to at least two moderate volume blood-tinged stools. O: VS most recently in chart are from 4pm: Temp 97.7F, Pulse 94, RR 16, BP 130/58, on room air at 100% sat. Clinically not in distress. Patient is on bedside commode. CV: RRR, no murmurs, gallops, or rubs noted. Peripheral perfusion intact in extremities. No chest wall tenderness. No JVD. Resp: Lungs clear to auscultation bilaterally without wheezes Ext: RLE amputation noted. A/P: 67M with PVD s/p RLE amputation, DM, ESRD, and acute blood loss anemia Low suspicion for ACS however indicated to rule this out Will get stat EKG, cardiac enzymes Given anemia likely associated with symptoms, will transfuse 2U PRBCs and get f/ u H&H Will hold Lasix 20mg IV dose usually given btw doses but monitor closely F/U vital signs as not current in chart SDW Dr. Gracy Armijo,Roma Mejia MD May 08, 2017 00:27
[2017-05-08] MEDS: INSULIN ASPART SUPPLEMENTAL SCALE SQ SCH ×6 (01:00→23:07)
[2017-05-08 01:28] LABS: AUTOMATED NEUTROPHIL # 5.5 TH/MM3 (1.8-7.7); BASOPHIL # 0.1 TH/MM3 (0-0.2); BASOPHIL % 0.9 % (0.0-2.0); EOSINOPHIL % 0.5 % (0.0-4.0); LYMPH % 16.3 % (9.0-44.0); LYMPHOCYTE # 1.2 TH/MM3 (1.0-4.8); MEAN CELL VOLUME 91.9 FL (80.0-100.0); MEAN CORPUSCULAR HEMOGLOBIN 30.6 PG (27.0-34.0); MEAN CORPUSCULAR HGB CONC 33.3 % (32.0-36.0); MEAN PLATELET VOLUME 6.8 FL (7.0-11.0); MONO % 10.5 % (0.0-8.0); MONOCYTE # 0.8 TH/MM3 (0-0.9); NEUT % 71.8 % (16.0-70.0); PLATELET COUNT 287 TH/MM3 (150-450); RED BLOOD COUNT 2.27 MIL/MM3 (4.50-5.90); RED CELL DISTRIBUTION WIDTH 16.3 % (11.6-17.2); WHITE BLOOD COUNT 7.6 TH/MM3 (4.0-11.0)
[2017-05-08 01:33] LABS: HEMATOCRIT 20.9 % (39.0-51.0); HEMOGLOBIN 6.9 GM/DL (13.0-17.0)
[2017-05-08 01:52] LABS: BICARBONATE 28.2 MEQ/L (21.0-32.0); CREATININE 4.35 MG/DL (0.60-1.30); PHOSPHORUS 3.9 MG/DL (2.5-4.9)
[2017-05-08 01:55] LABS: TROPONIN I 0.02 NG/ML (0.02-0.05)
[2017-05-08] MEDS: CHLORHEXIDINE GLUCONATE 2 % 1 PACK (2 CLOTHS) TOP SCH (04:00)
[2017-05-08] MEDS: INSULIN DETEMIR 100 UNITS/ML VIAL SQ SCH ×2 (08:29→23:06)
[2017-05-08] MEDS: SODIUM CHLOR 0.9% 1000 ML INJ 1,000 ML IV SCH ×3 (08:29→23:24)
[2017-05-08] MEDS: PANTOPRAZOLE SODIUM 40 MG VIAL IV PUSH SCH ×2 (08:29→22:30)
[2017-05-08] MEDS: SODIUM CHLORIDE 0.9% FLUSH 10 ML FLUSH IV FLUSH SCH ×2 (08:29→22:31)
[2017-05-08 08:32] LABS: AUTOMATED NEUTROPHIL # 7.1 TH/MM3 (1.8-7.7); BASOPHIL # 0.1 TH/MM3 (0-0.2); BASOPHIL % 0.6 % (0.0-2.0); EOSINOPHIL % 0.2 % (0.0-4.0); HEMATOCRIT 22.6 % (39.0-51.0); HEMOGLOBIN 7.8 GM/DL (13.0-17.0); LYMPH % 13.8 % (9.0-44.0); LYMPHOCYTE # 1.3 TH/MM3 (1.0-4.8); MEAN CELL VOLUME 92.6 FL (80.0-100.0); MEAN CORPUSCULAR HEMOGLOBIN 31.8 PG (27.0-34.0); MEAN CORPUSCULAR HGB CONC 34.4 % (32.0-36.0); MEAN PLATELET VOLUME 7.5 FL (7.0-11.0); MONO % 10.1 % (0.0-8.0); MONOCYTE # 0.9 TH/MM3 (0-0.9); NEUT % 75.3 % (16.0-70.0); PLATELET COUNT 269 TH/MM3 (150-450); RED BLOOD COUNT 2.44 MIL/MM3 (4.50-5.90); RED CELL DISTRIBUTION WIDTH 17.4 % (11.6-17.2); WHITE BLOOD COUNT 9.4 TH/MM3 (4.0-11.0)
[2017-05-08] MEDS ORDERED: PROPOFOL 200 MG/20 ML AMP IV ONE (12:00)
[2017-05-08] MEDS ORDERED: DO NOT ADM ANY ANTICOAGULANT DRUGS PRN (13:48)
--- NOTE | 2017-05-08 14:05 | PD.PROCEDR ---
GI Procedure PROCEDURE PERFORMED Colonoscopy with biopsy INDICATION FOR PROCEDURE Rectal bleeding PROCEDURE: The procedure, risks and benefits were discussed with Ms. Guzman and informed consent was obtained. Anesthesia sedated her with Diprivan. She was placed in the left lateral decubitus position. Colonoscopy: The Pentax videoscope was introduced through the rectum and advanced to cecum where the ileocecal valve and appendiceal orifice were identified. Retroflexion was performed in the rectum. Colonic prep was good FINDINGS: Colonic withdrawal time greater than 6 minutes. As the scope was slowly withdrawn colonic mucosa was carefully inspected the patient was noted to have multiple ulcerations throughout the colon they were patchy and linear ulcerations superficial clean based they were seen in the cecum and the proximal ascending colon the distal transverse mid descending and the sigmoid and in the rectum the mucosa in between was normal so this is possibly suggestive of Crohn's disease multiple biopsies were taken colonic examination was otherwise unremarkable no retroflexion was performed because of the large ulcer in the rectum rectal examination otherwise unremarkable ESTIMATED BLOOD LOSS: None SPECIMENS REMOVED: Multiple biopsies from the colon COMPLICATIONS: None IMPRESSION: Colon ulcers possibly Crohn's disease PLAN: Await biopsies Continue with current supportive care Monitor labs Minimize anticoagulation Follow-up with GI post discharge CTA to rule out ischemic event in the colon Ervin Brown MD May 08, 2017 14:05
--- NOTE | 2017-05-08 14:49 | EKG ---
Date Performed: 05/08/2017 Time Performed: 09:21:13 PTAGE: 67 years EKG: Sinus rhythm WITH FREQUENT VENTRICULAR PREMATURE COMPLEXES POSSIBLE LEFT ATRIAL ENLARGEMENT POSSIBLE LEFT VENTRIC ULAR HYPERTROPHY ABNORMAL ECG Compared to PREVIOUS TRACING QRS voltage has increased, PVCs are new PREVIOUS TRACIN04/22/2017 16 .42 DOCTOR: Ezra Jo Interpretating Date/Time 05/08/2017 14:48:12
--- NOTE | 2017-05-08 15:04 | HHI.HCPN ---
Reason for visit a. To assist with evaluation and management of symptoms including:Pain, debility b. To assist medical decision maker(s) with: better understanding of current medical conditions; weighing benefits/burdens of medical treatment options; making medical treatment decisions. Subjective/Interval History Follow-up on symptom management and goals of care. Patient seen in his room, he is just arrived from GI lab where he had colonoscopy with biopsies done. Patient is awake, alert, oriented to self, place and situation. Patient denies pain. Patient currently having the last of 2 units PRBCs transfusing. Colonoscopy showed colon ulcers possibly Crohn's disease and large ulcer in the rectum. Laboratory workup today at 0123hrs revealed WBC 7.6, hemoglobin 6.9, hematocrit 20.9, platelet count 287, BUN/creatinine 27/4.35, estimated GFR 14, calcium 8.0, phosphorus 3.9. Repeat CBC at 0730 hrs. revealed hemoglobin 7.8, hematocrit 22.6 . Family/friend interactions No family at bedside. . Advance Directives Living Will: Never completed Health Care Surrogate: Copy in medical record Durable Power of Truck Technician: Never completed Advance Directive Specifics Date completed: 04/29/2017 . Health Care Surrogate(s): [facility]-Spouse- Mariann Lozano-[phone] Alternate [facility]- DajuanMorris . Objective Vital Signs Date Time Temp Pulse Resp B/P (MAP) Pulse Ox O2 Delivery O2 Flow Rate FiO2 05/08/17 14:00 97.9 76 18 164/75 (104) 100 05/08/17 12:00 98.3 76 18 169/75 (106) 99 05/08/17 11:00 98.3 76 18 169/75 99 05/08/17 08:00 98.0 88 18 163/72 (102) 100 05/08/17 02:15 98.7 100 20 165/76 99 05/08/17 02:00 98.4 95 20 188/72 100 05/07/17 20:00 96.3 87 20 129/69 (89) 96 05/07/17 16:00 97.7 94 16 130/58 (82) 100 Intake & Output 05/08/17 05/08/17 07:00 19:00 Intake Total 400 ml 620 ml Output Total 225 ml 1450 ml Balance 175 ml -830 ml Packed Cells 400 ml 400 ml Blood Product IV Normal Saline Flush 20 ml Other 200 ml Output Urine Total 225 ml 1450 ml Physical Exam CONSTITUTIONAL/GENERAL: This is an adequately nourished patient, in no apparent distress. TUBES/LINES/DRAINS: Vas Cath,PIV, Montalvo catheter SKIN: No jaundice, rashes, or lesions. Skin temperature appropriate.Ecchymoses on upper extremities.Surgical incision to R-AKA. Not diaphoretic. CARDIOVASCULAR: S1, S2, regular rhythm, controlled rate, 2/6 systolic ejection murmur, no rub no gallop. RESPIRATORY/CHEST: Symmetric, unlabored respirations. Lungs clear to auscultation. No wheezes, rales, or rhonchi. GASTROINTESTINAL: Abdomen soft, non-tender, nondistended. No guarding. Hypoactive bowel sounds GENITOURINARY: Without palpable bladder distension. Montalvo catheter. MUSCULOSKELETAL: Right AKA incision well approximated, sutured, no erythema or drainage. Open to air. Left lower extremity with diminished pulse, no edema NEUROLOGICAL: Awake and alert, oriented to self and place. Motor and sensory grossly within normal limits. Follows commands. Moves all extremities. PSYCHIATRIC: No obvious anxiety/depression. no apparent hallucinations or other psychotic thought process. . Diagnostic Tests Laboratory Laboratory Tests Test 05/06/17 07:17 05/06/17 08:17 05/07/17 08:46 05/07/17 08:50 Blood Urea Nitrogen 26 MG/DL (7-18) Creatinine 3.89 MG/DL (0.60-1.30) Random Glucose 95 MG/DL (74-106) Calcium Level 8.4 MG/DL (8.5-10.1) Sodium Level 137 MEQ/L (136-145) Potassium Level 3.6 MEQ/L (3.5-5.1) Chloride Level 100 MEQ/L (98-107) Carbon Dioxide Level 29.7 MEQ/L (21.0-32.0) Anion Gap 7 MEQ/L (5-15) Estimat Glomerular Filtration Rate 15 ML/MIN (>89) White Blood Count 10.1 TH/MM3 (4.0-11.0) 8.3 TH/MM3 (4.0-11.0) Red Blood Count 2.63 MIL/MM3 (4.50-5.90) 2.68 MIL/MM3 (4.50-5.90) Hemoglobin 8.4 GM/DL (13.0-17.0) 8.5 GM/DL (13.0-17.0) Hematocrit 24.6 % (39.0-51.0) 25.2 % (39.0-51.0) Mean Corpuscular Volume 93.6 FL (80.0-100.0) 93.9 FL (80.0-100.0) Mean Corpuscular Hemoglobin 31.9 PG (27.0-34.0) 31.9 PG (27.0-34.0) Mean Corpuscular Hemoglobin Concent 34.1 % (32.0-36.0) 34.0 % (32.0-36.0) Red Cell Distribution Width 16.0 % (11.6-17.2) 16.0 % (11.6-17.2) Platelet Count 244 TH/MM3 (150-450) 280 TH/MM3 (150-450) Mean Platelet Volume 7.9 FL (7.0-11.0) 7.9 FL (7.0-11.0) Neutrophils (%) (Auto) 73.5 % (16.0-70.0) 72.2 % (16.0-70.0) Lymphocytes (%) (Auto) 16.3 % (9.0-44.0) 17.7 % (9.0-44.0) Monocytes (%) (Auto) 8.7 % (0.0-8.0) 8.4 % (0.0-8.0) Eosinophils (%) (Auto) 0.7 % (0.0-4.0) 0.9 % (0.0-4.0) Basophils (%) (Auto) 0.8 % (0.0-2.0) 0.8 % (0.0-2.0) Neutrophils # (Auto) 7.4 TH/MM3 (1.8-7.7) 6.0 TH/MM3 (1.8-7.7) Lymphocytes # (Auto) 1.6 TH/MM3 (1.0-4.8) 1.5 TH/MM3 (1.0-4.8) Monocytes # (Auto) 0.9 TH/MM3 (0-0.9) 0.7 TH/MM3 (0-0.9) Eosinophils # (Auto) 0.1 TH/MM3 (0-0.4) 0.1 TH/MM3 (0-0.4) Basophils # (Auto) 0.1 TH/MM3 (0-0.2) 0.1 TH/MM3 (0-0.2) CBC Comment DIFF FINAL DIFF FINAL Differential Comment Stool C. difficile Toxin (PCR) NEGATIVE (NEGATIVE) Stl C. difficile Toxin Epiderm 027 PRESUMPTIVE NEGATIVE Test 05/07/17 08:56 05/07/17 10:10 05/07/17 15:27 05/07/17 20:42 Blood Urea Nitrogen 30 MG/DL (7-18) Creatinine 4.51 MG/DL (0.60-1.30) Random Glucose 168 MG/DL (74-106) Calcium Level 8.4 MG/DL (8.5-10.1) Sodium Level 136 MEQ/L (136-145) Potassium Level 3.8 MEQ/L (3.5-5.1) Chloride Level 99 MEQ/L (98-107) Carbon Dioxide Level 26.3 MEQ/L (21.0-32.0) Anion Gap 11 MEQ/L (5-15) Estimat Glomerular Filtration Rate 13 ML/MIN (>89) Prothrombin Time 10.4 SEC (9.8-11.6) Prothromb Time International Ratio 1.0 RATIO Activated Partial Thromboplast Time 22.9 SEC (24.3-30.1) White Blood Count 9.6 TH/MM3 (4.0-11.0) 8.2 TH/MM3 (4.0-11.0) Red Blood Count 2.23 MIL/MM3 (4.50-5.90) 2.24 MIL/MM3 (4.50-5.90) Hemoglobin 7.2 GM/DL (13.0-17.0) 7.1 GM/DL (13.0-17.0) Hematocrit 21.4 % (39.0-51.0) 21.1 % (39.0-51.0) Mean Corpuscular Volume 95.8 FL (80.0-100.0) 94.2 FL (80.0-100.0) Mean Corpuscular Hemoglobin 32.1 PG (27.0-34.0) 31.7 PG (27.0-34.0) Mean Corpuscular Hemoglobin Concent 33.5 % (32.0-36.0) 33.6 % (32.0-36.0) Red Cell Distribution Width 15.9 % (11.6-17.2) 16.5 % (11.6-17.2) Platelet Count 255 TH/MM3 (150-450) 271 TH/MM3 (150-450) Mean Platelet Volume 7.9 FL (7.0-11.0) 7.7 FL (7.0-11.0) Neutrophils (%) (Auto) 77.4 % (16.0-70.0) 73.9 % (16.0-70.0) Lymphocytes (%) (Auto) 13.9 % (9.0-44.0) 15.2 % (9.0-44.0) Monocytes (%) (Auto) 8.0 % (0.0-8.0) 9.6 % (0.0-8.0) Eosinophils (%) (Auto) 0.2 % (0.0-4.0) 0.6 % (0.0-4.0) Basophils (%) (Auto) 0.5 % (0.0-2.0) 0.7 % (0.0-2.0) Neutrophils # (Auto) 7.4 TH/MM3 (1.8-7.7) 6.0 TH/MM3 (1.8-7.7) Lymphocytes # (Auto) 1.3 TH/MM3 (1.0-4.8) 1.2 TH/MM3 (1.0-4.8) Monocytes # (Auto) 0.8 TH/MM3 (0-0.9) 0.8 TH/MM3 (0-0.9) Eosinophils # (Auto) 0.0 TH/MM3 (0-0.4) 0.1 TH/MM3 (0-0.4) Basophils # (Auto) 0.1 TH/MM3 (0-0.2) 0.1 TH/MM3 (0-0.2) CBC Comment DIFF FINAL DIFF FINAL Differential Comment Test 05/08/17 01:23 05/08/17 07:30 White Blood Count 7.6 TH/MM3 (4.0-11.0) 9.4 TH/MM3 (4.0-11.0) Red Blood Count 2.27 MIL/MM3 (4.50-5.90) 2.44 MIL/MM3 (4.50-5.90) Hemoglobin 6.9 GM/DL (13.0-17.0) 7.8 GM/DL (13.0-17.0) Hematocrit 20.9 % (39.0-51.0) 22.6 % (39.0-51.0) Mean Corpuscular Volume 91.9 FL (80.0-100.0) 92.6 FL (80.0-100.0) Mean Corpuscular Hemoglobin 30.6 PG (27.0-34.0) 31.8 PG (27.0-34.0) Mean Corpuscular Hemoglobin Concent 33.3 % (32.0-36.0) 34.4 % (32.0-36.0) Red Cell Distribution Width 16.3 % (11.6-17.2) 17.4 % (11.6-17.2) Platelet Count 287 TH/MM3 (150-450) 269 TH/MM3 (150-450) Mean Platelet Volume 6.8 FL (7.0-11.0) 7.5 FL (7.0-11.0) Neutrophils (%) (Auto) 71.8 % (16.0-70.0) 75.3 % (16.0-70.0) Lymphocytes (%) (Auto) 16.3 % (9.0-44.0) 13.8 % (9.0-44.0) Monocytes (%) (Auto) 10.5 % (0.0-8.0) 10.1 % (0.0-8.0) Eosinophils (%) (Auto) 0.5 % (0.0-4.0) 0.2 % (0.0-4.0) Basophils (%) (Auto) 0.9 % (0.0-2.0) 0.6 % (0.0-2.0) Neutrophils # (Auto) 5.5 TH/MM3 (1.8-7.7) 7.1 TH/MM3 (1.8-7.7) Lymphocytes # (Auto) 1.2 TH/MM3 (1.0-4.8) 1.3 TH/MM3 (1.0-4.8) Monocytes # (Auto) 0.8 TH/MM3 (0-0.9) 0.9 TH/MM3 (0-0.9) Eosinophils # (Auto) 0.0 TH/MM3 (0-0.4) 0.0 TH/MM3 (0-0.4) Basophils # (Auto) 0.1 TH/MM3 (0-0.2) 0.1 TH/MM3 (0-0.2) CBC Comment DIFF FINAL DIFF FINAL Differential Comment Blood Urea Nitrogen 27 MG/DL (7-18) Creatinine 4.35 MG/DL (0.60-1.30) Random Glucose 88 MG/DL (74-106) Calcium Level 8.0 MG/DL (8.5-10.1) Phosphorus Level 3.9 MG/DL (2.5-4.9) Sodium Level 142 MEQ/L (136-145) Potassium Level 4.1 MEQ/L (3.5-5.1) Chloride Level 104 MEQ/L (98-107) Carbon Dioxide Level 28.2 MEQ/L (21.0-32.0) Anion Gap 10 MEQ/L (5-15) Estimat Glomerular Filtration Rate 14 ML/MIN (>89) Total Creatine Kinase 85 U/L (39-308) Troponin I 0.02 NG/ML (0.02-0.05) Result Diagram: 05/08/17 0730 05/08/17 0123 Microbiology Microbiology Date/Time Source Procedure Growth Status 05/07/17 08:46 Stool Stool Stool Occult Blood (ANN) - Final HEMOCCULT POSITIVE Complete 05/07/17 08:46 Stool Stool - Final NO ENTERIC PATHOGENS DETECTED BY PCR... Complete Procedures 04/23 thrombectomy and right lower leg fasciotomy Central line placement 04/24-Vas-Cath placement 04/2568-[id number] amputation of right lower extremity 04/28-revision of above-knee amputation of right lower extremity, closure 05/01-placement of PermCath 05/08/17-colonoscopy with biopsy . Assessment and Plan Disease Oriented Problem List: (1) Acute renal failure (2) CKD (chronic kidney disease) stage 3, GFR 30-59 ml/min (3) DKA (diabetic ketoacidoses) (4) Diabetes mellitus (5) Transaminitis (6) Compartment syndrome (7) Hypernatremia (8) Hyperammonemia Symptom Scale: (1) Pain 0-10 Scale: Unable to quantify Comment: Recent Right AKA. . (2) Debility 0-10 Scale: Unable to quantify (Recent Right AKA) Comment: Progressive . Pertinent Non-Medical Issues Psychosocial:Patient is originally from [place]. He came to [place] in [place]. He got and moved to [place] with his of +25 years. 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 Patient has 2 adult children, a daughter Junior and son Dajuan. Patient lives with his . Spiritual: Patient is Episcopalian Legal:Completed and signed [facility] Ethical issues impacting care: None identified at this time . Important Contacts Spouse-KumaraidencaitlinMukundCacgrktb-[phone] Son-Morris Graff . Prognosis Mr. Loyola is a 67 years old male with a past medical history significant for coronary artery disease s/p CABG and 2 stent placement, myocardial infarction, peripheral arterial disease, diabetes mellitus, hypertension and hyperlipidemia. Patient was brought in on 04/21/17 by EMS with complaints of decreased appetite, decreased thirst for approximately a week. Clinical course complicated with worsening renal function, delirium and nonsalvageable lower extremity ischemia requiring amputation of right lower extremity. Given ongoing comorbidities, patient remains at high risk for further complications, deterioration and decline. . Code Status: No Code Plan PLAN: Legal decision maker: Patient is able to participate in medical decision making. Due to reported intermittent periods of delirium during this hospitalization, recommending medical decision making to be done in collaboration with patient`s spouse Marta Mariann whom he also designated as his HCS or his son Nir Graff whom he designated as his alternate HCS. Goals: Aggressive short of no code. Patient referred to [facility] for a sh[facility]a bed if available. CODE STATUS: No code DNR SYMPTOMS: * Pain: Recent right above knee amputation. Risk for phantom pain. Patient has Oxycodone 5mg -10mg q 4 hrs prn and Hydromorphone 0.2mg q 4 hrs prn. Sparingly needing prn medications. Patient states right leg causes pain when left in one position too long or when being removed. Continue assessing pain. Risk for phantom pain. Patient status post colonoscopy with biopsy. Currently denies pain. * Debility: Patient recently had above the knee amputation to his right lower extremity and is currently on hemodialysis. Physical therapy consulted, recommended PT and OT [facility]. This may be a challenging time for patient given his other comorbidities and confusion. states she would like to take him home but is willing for short-term rehabilitation as recommended by PT. Jeff is following for possible shwetha bed admission when ready to be discharged. Palliative care will continue to follow the patient during hospital course as condition evolves, to assist patient/decision-maker with understanding of their medical conditions, weighing benefits/burdens of treatment options, for clarification of goals of treatment. Additionally will assist with any symptoms of palliative concern Attestation To help prompt me to consider important information that might be impacting today's encounter and assessment, information from prior notes written by myself or my colleagues may have been "brought forward" into today's note. My signature on this note, however, is an attestation that I personally performed the exam, history, and/or decision-making noted today, and, unless otherwise indicated, the interactions with patient, family, and staff as well as the review of records all occurred today. I also attest that the listed assessment and stated plan reflect my best clinical judgment today based on the combination of historical information, prior notes, and today's exam/ interactions. When time spent is documented, it refers only to time spent today by the signer, or if indicated, combined time spent today by collaborating physician/nurse practitioner. Ruby Wilson May 08, 2017 15:04
--- NOTE | 2017-05-08 15:19 | HHI.FPPN ---
Subjective Remarks Patient seen this afternoon after returning from his colonoscopy. Patient states that he "feels great." and that they "didn't find anything wrong." He denies CP, SOB, Abd pain, N/V. Patient instructed to inform nursing staff if he has any further episodes of bloody BM. Objective Vitals Vital Signs Date Time Temp Pulse Resp B/P (MAP) Pulse Ox O2 Delivery O2 Flow Rate FiO2 05/08/17 14:00 97.9 76 18 164/75 (104) 100 05/08/17 12:00 98.3 76 18 169/75 (106) 99 05/08/17 11:00 98.3 76 18 169/75 99 05/08/17 08:00 98.0 88 18 163/72 (102) 100 05/08/17 02:15 98.7 100 20 165/76 99 05/08/17 02:00 98.4 95 20 188/72 100 05/07/17 20:00 96.3 87 20 129/69 (89) 96 05/07/17 16:00 97.7 94 16 130/58 (82) 100 I/O 05/07/17 05/07/17 05/07/17 05/08/17 05/08/17 05/08/17 06:59 14:59 22:59 06:59 14:59 22:59 Intake Total 300 ml 300 ml 1020 ml Output Total 600 ml 1025 ml 1450 ml Balance -300 ml -725 ml -430 ml Intake Oral 300 ml 300 ml Packed Cells 800 ml Blood Product IV Normal Saline Flush 20 ml Other 200 ml Output Urine Total 600 ml 1025 ml 1450 ml # Bowel Movements 0 6 4 Result Diagram: 05/08/17 0730 05/08/17 0123 Objective Remarks GENERAL: This is a thin male, lying in bed in NAD. SKIN: No rashes, ecchymoses or lesions outside of RLE as noted below. Perm cath in place with no draining or erythema noted. HEAD: Atraumatic. Normocephalic. EYES: Pupils equal round and reactive. Extraocular motions intact. CARDIOVASCULAR: Regular rate and rhythm without murmurs, gallops, or rubs. RESPIRATORY: Clear to auscultation. Breath sounds equal bilaterally. No wheezes , rales, or rhonchi. GASTROINTESTINAL: Abdomen soft, non-tender, nondistended. No hepato-splenomegaly , or palpable masses. No guarding. MUSCULOSKELETAL: RLE with [id number] amputation, no drain, with stitches intact. No erythema or drainage noted at surgical site. Also sutures appreciated in the R inguinal area with no drainage or erythema. Skin is warm above level of amputation. LLE warm to touch, +palpated left DP pulse : Montalvo in place with no erythema or discharge appreciated. NEUROLOGICAL: Cranial nerves grossly intact. Moving LLE and upper extremities spontaneously. Answers questions appropriately. Line: Central Venous Catheter Side: Right Location: Jugular A/P Assessment and Plan Patient is 67 year old Male with PMHx of HTN and DM presented to ED via EVAC due to 1 wk hx of decreased po intake. Patient found to be altered, hypertensive with blood glucose greater than 900, elevated anion gap of 29, beta hydroxy of 11.9. Patient admitted to management of DKA. Transitioned to SQ insulin on 04/22. Of note, communication with the patient has been difficult at times. [employer] insulation blower was used on 04/23 as patient is primarily Czech speaking, and the insulation blower could not understand the patient. Nursing staff and medical team has been able to communicate with the patient in Ethiopian successfully at times but he occasionally slurs his speech/is not understandable. On 04/23 patient was found to have significant transaminitis as well as worsening renal function. Nephrology, GI consulted. A discussion was had with the patient's on 04/23 and she stated that all of the patient's symptoms (including his R leg stiffness/loss of function) were new and that he had been found down for up to 5 hours before coming to the ER. Vascular was consulted at that time and it was noted that patient had no palpable pulses, either femoral, popliteal, dorsalis pedis or post tibial. Ultrasound revealed complete occlusion of blood flow to the R leg and patient was immediately taken to the OR for R leg clot fasciotomy thrombectomy. On 04/24 patient was found to have worsening renal function with Creatinine of 4.85 and a Potassium of 7.1. R int jugular vascular cath was placed and patient underwent HD at that time. Labs were indicative of rhabdomyolysis. Right above knee amputation with wound vac was performed on 04/24. Received one blood transfusion following the procedure. S/P closure of amputation site on 04/27 with drain removal 04/29. Getting HD MWF. Unclear clinical course ahead. Palliative care consulted 04/29 to further elucidate goals of care, appreciate recommendations. PermCath placed 05/01 for continued outpatient dialysis. Case management working on rehab discharge planning, [facility] 05/05: Urology consulted 05/04 to assist with urinary retention - recommending Montalvo catheter for 7 days, Flomax before another trial without the catheter. Follow up with urology as outpatient 05/06: no changes in management, pt stable 05/07: bloody stool this morning with subsequent BPBPR. Stool studies including C -diff sent. Will consult GI at this time. Hold heparin, pt NPO, MIVF started, Protonix 40mg IV BID. Has permcath access. Serial H&H and coag profile. Hbg dropped to 6.9 and he received 2 units PRBC and responded to 7.8 05/08: Seen after colonoscopy and stable. Op report with findings of ulcers in the colon with biopsies taken GI ordering CT abdomen/pelvis to rule out ischemic event Nephrology managing, appreciate assistance in this patient's care. Critical Care signed off 04/28. * Neuro: intermittent AMS resolved, Dementia * Initially presented with altered mental status, confusion. Has resolved and patient oriented 3 with no signs of delirium * No previous CVA history * Lipid profile showing triglycerides 200, cholesterol 155, LDL 102, HDL 12.6, A1c 17.7 * Will initiate atorvastatin once liver function is stable, likely as outpt * Rehab at discharge * CV: Hx CABG remotely, Intermittent bradycardia, HTN, critical limb ischemia s/ p amputation * Echo 04/24 showing EF 60-65%, normal LV size, no noted wall motion abnormalities * Vascular surgery performed R leg clot fasciotomy thrombectomy on 04/23. * Right above knee amputation with wound vac was performed on 04/24. * Amputation closure performed 04/26 * Increased Amlodipine to 10mg as patient was persistently hypertensive. * GI: acute transaminitis, difficulty swallowing, hyperammonemia, acute lower GI bleed * LFTs were normal admission, then became significantly elevated most likely secondary to rhabdomyolysis. Returned to baseline following IV fluids and amputation of the right leg above the knee. * US Liver on 04/24 showed findings consistent with hepatic steatosis versus medical liver disease. Cholelithiasis noted. * Hepatitis panel negative. * Patient with bloody BM on 05/07 - colonoscopy on 05/08 showing ulcers in the colon - possibly Crohn's disease * CT abdomen/pelvis to rule out ischemic event * FEN/RENAL: acute renal failure complicated by chronic kidney disease, hypoalbuminemia, hypocalcemia, rhabdomyolysis * Creatinine elevated on admission at 3.42. Worsened after patient went into rhabdo. Nephrology was consult and patient has been on hemodialysis MWF since * Renal US normal * Nephrology consulted, appreciate recommendations * Will likely need HD for 6 weeks, nephrology will set this up as outpt * Attempted to DCd Montalvo on 05/02 - required straight cath over next 24 hours due to inability to urinate - started Flomax on 05/03. Still urinary retention on 05/04 so reordered Montalvo and will try again in 7 days. * Urology consulted and recommending 7 days with Montalvo before another trial. Continue Flomax and follow up with urology as outpatient * ID: UTI complicated by male gender, race, urethral injury, Leukocytosis 04/29 * Found to have UTI on admission with cultures growing Klebsiella, group B strep and was treated with Levaquin for 10 day course * Leukocytosis on admission resolved but recurred 04/29, repeat UA at that time grew Joslyn and patient was started on Diflucan on 05/03. Leukocytosis currently resolved as of 05/05 * Will complete Diflucan for 14 day course * HEME: rhabdomyolysis, acute blood loss anemia, anemia of chronic disease, acute lower GI bleed 05/07 * Goal Hgb > 7 * Nephrology started Epoetin 10,000 units with dialysis * Status post 2 units of packed red blood cells following amputation on 04/24, 1 unit on 05/01 * H/H trended after GI bleed on 05/07 - dropped to 6.9 and received 2 units PRBC 's with response to 7.8 - will continue to trend * Monitor CBC, PRBCs for Hgb <7 or sx * ENDO: Diabetes * Hyperglycemia: HHS on admission, resolved on 04/22 but insulin drip resumed on 04/24. Discontinued insulin drip and started SSI on 04/25 * A1c 17.7 * adult educator, veneer sheet repairer consulted * TSH wnl * Patient now cleared for regular diet, Increased Levemir to 10 units BID, will continue and monitor closely * PROPH/LINES: * Heparin 5000U sq q12h, HOLD FOR ACUTE GIB 05/07 * PermCath 05/01/17 Discharge Planning Pending workup on 05/07 for acute GIB Anticipate transition to half-way care facility (or SNF) with dialysis, rehab, medication administration. Case Management consulted for SNF placement DW Dr. Bernard, Dr. Robles Problem List: (1) Hyperammonemia ICD Codes: E72.20 - Disorder of urea cycle metabolism, unspecified Status: Acute (2) Compartment syndrome ICD Codes: T79.A0XA - Compartment syndrome, unspecified, initial encounter Status: Acute (3) Diabetes mellitus ICD Codes: E11.9 - Diabetes mellitus Status: Chronic (4) Hypertension ICD Codes: I10 - Hypertension Status: Acute (5) Acute renal failure ICD Codes: N17.9 - Acute kidney failure, unspecified Status: Acute (6) Hypernatremia ICD Codes: E87.0 - Hyperosmolality and hypernatremia Status: Resolved (7) Hyperkalemia ICD Codes: E87.5 - Hyperkalemia Status: Acute (8) UTI (urinary tract infection) ICD Codes: N39.0 - Urinary tract infection, site not specified Status: Acute (9) Transaminitis ICD Codes: R74.0 - Nonspecific elevation of levels of transaminase and lactic acid dehydrogenase [LDH] Problem Qualifiers (1) Acute renal failure: Qualified Codes: N17.9 - Acute kidney failure, unspecified (2) UTI (urinary tract infection): Qualified Codes: N10 - Acute pyelonephritis Mango Cheung MD R1 May 08, 2017 15:19
--- NOTE | 2017-05-08 15:38 | HHI.NPPN ---
Subjective History of Present Illness 67 year old with Hypertension,DKA, DM, ARF Additional Remarks doing better Objective Data Data 05/08/17 05/09/17 19:00 07:00 Intake Total 620 ml Output Total 1450 ml Balance -830 ml Packed Cells 400 ml Blood Product IV Normal Saline Flush 20 ml Other 200 ml Output Urine Total 1450 ml Vital Signs Date Time Temp Pulse Resp B/P (MAP) Pulse Ox O2 Delivery O2 Flow Rate FiO2 05/08/17 14:00 97.9 76 18 164/75 (104) 100 05/08/17 12:00 98.3 76 18 169/75 (106) 99 05/08/17 11:00 98.3 76 18 169/75 99 05/08/17 08:00 98.0 88 18 163/72 (102) 100 05/08/17 02:15 98.7 100 20 165/76 99 05/08/17 02:00 98.4 95 20 188/72 100 05/07/17 20:00 96.3 87 20 129/69 (89) 96 05/07/17 16:00 97.7 94 16 130/58 (82) 100 -: 05/08/17 0730 05/08/17 0123 Physical Exam General Appearance: Well Developed, Well Nourished Neck Neck Exam: Neck Supple Pulmonary Resp Exam: Clear Bilaterally, Breath Sounds Equal Cardiology CV Exam: Regular, Normal Sinus Rhythm Gastrointestinal/Abdomen GI Exam: Soft, Non-Tender, Bowel Sounds Present Extremeties Extremities Exam: Moderate Edema Extremeties Remarks Rt AKA Neurologic Neuro Exam: Alert Assessment/Plan Problem List: (1) Acute renal failure ICD Codes: N17.9 - Acute kidney failure, unspecified Status: Acute Plan: Patient has chronic kidney disease and acute renal failure with rhabdomyolysis creatinine 4.53 -> 5.9 -> 7.2 -> 5.3 -> 6.3->5.09 -> 5.5 ->4.5-> 5.3->5.4->3.8- > 4.5->4.3 UOP 1.1 L may decrease frequency to twice a week as passing more urine Monitor BMP check for signs of improvement of acute renal failure as creatinine declined to 4.3 today On HD MF - PermCath placed ARF due to Rhabdo will wait [address] AVF he may transfer to rehab Right lower leg ischemia now status post right AKA On Epogen for anemia - transfuse as needed. (2) CKD (chronic kidney disease) stage 3, GFR 30-59 ml/min ICD Codes: N18.3 - Chronic kidney disease, stage 3 (moderate) Status: Chronic Plan: kidney ultrasound left renal cyst (3) Diabetes ICD Codes: E11.9 - Type 2 diabetes mellitus without complications Status: Chronic Plan: History of DKA continue to monitor (4) Hypertension ICD Codes: I10 - Hypertension Status: Acute Plan: BP stable (5) DKA (diabetic ketoacidoses) ICD Codes: E13.10 - Other specified diabetes mellitus with ketoacidosis without coma Status: Acute Plan: Resolved (6) Hypernatremia ICD Codes: E87.0 - Hyperosmolality and hypernatremia Status: Resolved Problem Qualifiers (1) Acute renal failure: Qualified Codes: N17.9 - Acute kidney failure, unspecified Natacha Suarez MD May 08, 2017 15:38
[2017-05-08 17:49] LABS: HEMOGLOBIN 9.5 GM/DL (13.0-17.0)
[2017-05-08] MEDS ORDERED: IOHEXOL 350 MG/ML 10 ML VIAL (for RAD DIAG) IVCONTRAST ONE (18:05)
--- NOTE | 2017-05-08 18:22 | RADRPT ---
EXAM DATE/TIME: 05/08/2017 16:58 [facility] COMPARISON: US KIDNEY/RENAL/BLADDER, April 22, 2017, 21:27. US ABDOMEN - LIVER, April 24, 2017, 15:02. INDICATIONS : End stage renal disease on hemodialysis. IV CONTRAST: 75 cc Visipaque (iodixanol) IV ORAL CONTRAST: No oral contrast ingested. RADIATION DOSE: 15.85 CTDIvol (mGy) MEDICAL HISTORY : Cardiovascular disease. Hypertension. Diabetes mellitus type 2. SURGICAL HISTORY : None. ENCOUNTER: Initial ACUITY: 1 day PAIN SCALE: 0/10 LOCATION: Umbilical TECHNIQUE: Volumetric scanning was performed using a multi-row detector CT scanner. The data was post processed with a variety of visualization algorithms including full volume maximum intensity projection, multi -planar sliding thin slab reformation, curved planar reformation, and surface rendering techniques. Using automated exposure control and adjustment of the mA and/or kV according to patient size, radiat ion dose was kept as low as reasonably achievable to obtain optimal diagnostic quality images. DICOM format image data is available electronically for review and comparison. FINDINGS: ABDOMINAL AORTA: There is atherosclerotic change at the periphery of the lower thoracic aorta and throughout the abdom inal aorta. An aneurysm is not seen. The proximal celiac and superior mesenteric arteries are patent and normal in diameter. There are solitary renal arteries bilaterally without gross abnormality. BIFURCATION: Normal. RIGHT PELVIS: There is atherosclerotic change is seen at the right common iliac and external iliac artery. There is occlusion of the proximal right internal iliac artery. LEFT PELVIS: There is atherosclerotic change is seen at the left common iliac and external iliac artery. There is occlusion of the proximal left internal iliac artery. OTHER: There appears to be cystic change at the lateral left kidney. The kidneys appear normal in size. No h ydronephrosis is seen. There is a Montalvo catheter in the urinary bladder. There is degenerative change in the lumbar spine. CONCLUSION: 1. Atherosclerotic change seen throughout. No aneurysm is seen. 2. 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 Ash Salomon MD on May 08, 2017 at 18:14 Board Certified Radiologist. This report was verified electronically.
[2017-05-08] MEDS: TAMSULOSIN HCL 0.4 MG CAP PO SCH (22:30)
[2017-05-09 00:11] VITALS: BP 162/74; PULSE 82; RESP 20; TEMP 99.4; O2SAT 98
[2017-05-09] MEDS: INSULIN ASPART SUPPLEMENTAL SCALE SQ SCH ×6 (01:00→22:04)
[2017-05-09] MEDS: SODIUM CHLOR 0.9% 1000 ML INJ 1,000 ML IV SCH ×2 (02:43→17:36)
[2017-05-09] MEDS: CHLORHEXIDINE GLUCONATE 2 % 1 PACK (2 CLOTHS) TOP SCH (04:00)
[2017-05-09 08:00] VITALS: BP 161/76; PULSE 89; RESP 16; TEMP 98.7; O2SAT 100
[2017-05-09] MEDS: SODIUM CHLORIDE 0.9% FLUSH 10 ML FLUSH IV FLUSH SCH ×2 (09:54→19:53)
[2017-05-09] MEDS: PANTOPRAZOLE SODIUM 40 MG VIAL IV PUSH SCH ×2 (09:54→19:48)
[2017-05-09] MEDS: INSULIN DETEMIR 100 UNITS/ML VIAL SQ SCH ×2 (09:56→22:04)
--- NOTE | 2017-05-09 10:37 | HHI.FPPN ---
Subjective Remarks Patient was seen and examined this morning. He feels great and denies residual bloody stools. Objective Vitals Vital Signs Date Time Temp Pulse Resp B/P (MAP) Pulse Ox O2 Delivery O2 Flow Rate FiO2 05/09/17 00:11 99.4 82 20 162/74 (103) 98 05/08/17 20:01 96.9 92 20 164/66 (98) 99 05/08/17 16:00 97.4 82 20 172/81 (111) 98 05/08/17 14:00 97.9 76 18 164/75 (104) 100 05/08/17 12:00 98.3 76 18 169/75 (106) 99 05/08/17 11:00 98.3 76 18 169/75 99 I/O 05/08/17 05/08/17 05/08/17 05/09/17 05/09/17 05/09/17 07:00 15:00 23:00 07:00 15:00 23:00 Intake Total 400 ml 620 ml 960 ml Output Total 1450 ml Balance 400 ml -830 ml 960 ml Intake Oral 960 ml Packed Cells 400 ml 400 ml Blood Product IV Normal Saline Flush 20 ml Other 200 ml Output Urine Total 1450 ml # Bowel Movements 1 Result Diagram: 05/08/17 1727 05/08/17 0123 Imaging Last Impressions Abdomen/Pelvis CT 05/08/17 0000 Signed Impressions: Service Date/Time: April 16:58 - CONCLUSION: 1. Atherosclerotic change seen throughout. No aneurysm is seen. 2. 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 Ash Salomon MD Chest X-Ray 05/03/17 0000 Signed Impressions: Service Date/Time: Wednesday, May 03, 2017 09:37 - CONCLUSION: No acute cardiopulmonary disease. Red Toro MD Catheter Placement X-Ray 05/01/17 0000 Signed Impressions: Service Date/Time: April 11:25 - CONCLUSION: Uncomplicated PermaCath placement as above. Dmitriy Kumar MD Liver Ultrasound 04/24/17 0000 Signed Impressions: Service Date/Time: April 15:02 - CONCLUSION: 1. Mild hepatomegaly with increased hepatic echogenicity likely reflecting hepatic steatosis versus medical liver disease. 2. Cholelithiasis with mildly distended gallbladder and gallbladder wall thickening which may be chronic in etiology. Further evaluation may be performed with HIDA scan if there is significant clinical concern regarding acute cholecystitis. Dmitriy Kumar MD Renal Ultrasound 04/22/17 0000 Signed Impressions: Service Date/Time: Saturday, April 22, 2017 21:27 - CONCLUSION: No obstructive uropathy or other acute abnormality. Incidentally seen benign-appearing left renal cyst. Ash Mason MD Head CT 04/21/17 0000 Signed Impressions: Service Date/Time: Friday, April 21, 2017 18:29 - CONCLUSION: Normal noncontrast head CT. Ash Mason MD Objective Remarks GENERAL: This is a thin male, lying in bed in NAD. SKIN: No rashes, ecchymoses or lesions outside of RLE as noted below. Perm cath in right chest wall with no draining or erythema noted. HEAD: Atraumatic. Normocephalic. EYES: Pupils equal round and reactive. Extraocular motions intact. CARDIOVASCULAR: Regular rate and rhythm without murmurs, gallops, or rubs. RESPIRATORY: Clear to auscultation. Breath sounds equal bilaterally. No wheezes , rales, or rhonchi. GASTROINTESTINAL: Abdomen soft, non-tender, nondistended. No hepato-splenomegaly , or palpable masses. No guarding. MUSCULOSKELETAL: RLE with [id number] amputation, site is clean with no drainage, stitches intact. No erythema or drainage noted at surgical site. Also sutures appreciated in the R inguinal area with no drainage or erythema. Skin is warm above level of amputation. LLE warm to touch, +palpated left DP pulse : Montalvo in place with no erythema or discharge appreciated. NEUROLOGICAL: Cranial nerves grossly intact. Moving LLE and upper extremities spontaneously. Answers questions appropriately. Medications and IVs Inpatient Medications Acetaminophen (Tylenol) 650 mg UNSCH PRN PO for headach, pain, temp > 101F Last administered on 05/05/17at 08:21; Start 04/24/17 at 07:00 Albumin Human 100 ml @ 60 mls/hr UNSCH PRN IV WITH DIALYSIS Last administered on 04/24/17at 09:22; Start 04/24/17 at 07:00 Albuterol Sulfate (Albuterol Neb) 2.5 mg ONCE ONCE NEB Last administered on at 06:50; Start 04/24/17 at 06:30; Stop 04/24/17 at 06:31; Status DC Amlodipine Besylate (Norvasc) 10 mg DAILY PO Last administered on 05/09/17at 09: 54; Start 05/04/17 at 09:00 Aspirin (Aspirin Chew) 162 mg DAILY PO ; Start 04/23/17 at 15:15; Stop 04/23/17 at 16:21; Status DC Calcium Chloride 1 gm/Dextrose 110 ml @ 110 mls/hr NOW ONCE IV ; Start at 06:45; Stop 04/24/17 at 06:45; Status DC Calcium Gluconate 1 gm/Dextrose 110 ml @ 110 mls/hr ONCE ONCE IV Last administered on 04/24/17at 07:35; Start 04/24/17 at 06:30; Stop 04/24/17 at 07:29 ; Status DC Calcium Gluconate 1 gm/Sodium Chloride 110 ml @ 110 mls/hr ONCE ONCE IV Last administered on 04/26/17at 12:35; Start 04/26/17 at 11:15; Stop 04/26/17 at 12:14 ; Status DC Calcium Gluconate 2 gm/Dextrose 120 ml @ 120 mls/hr ONCE ONCE IV Last administered on 04/23/17at 00:12; Start 04/23/17 at 23:30; Stop 04/24/17 at 00:29 ; Status DC Cefazolin Sodium (Ancef Inj) 2,000 mg ONCE ONCE IV ; Start 04/24/17 at 19:42; Stop 04/24/17 at 19:57; Status DC Cefazolin Sodium 2000 mg/Sodium Chloride 120 ml @ 240 mls/hr ELECTRONIC SCIENCE TEACHER IV Last administered on 05/01/17at 12:02; Start 04/30/17 at 14:30 Ceftriaxone Sodium 1000 mg/ Sodium Chloride 100 ml @ 200 mls/hr Q24H IV ; Start 04/23/17 at 15:00; Stop 04/23/17 at 15:12; Status DC Chlorhexidine Gluconate (Chlorhexidine 2% Cloth) 3 pack UNSCH PRN TOP HYGIENIC CARE; Start 04/21/17 at 21:15 Clonidine (Catapres) 0.1 mg UNSCH PRN PO for BP > 180/100 X 2 readings Last administered on 05/02/17at 23:38; Start 04/24/17 at 07:00 Desmopressin Acetate 5 mcg/ Sodium Chloride 51.25 ml @ 100 mls/hr ONCE ONCE IV ; Start 04/26/17 at 15:45; Stop 04/26/17 at 16:15; Status DC Dextrose (D50w (Vial) Inj) 50 ml UNSCH PRN IV PUSH HYPOGLYCEMIA-SEE COMMENTS; Start 04/25/17 at 08:15 Dextrose/Sodium Chloride 1,000 ml @ 200 mls/hr Q5H IV ; Start 04/22/17 at 17:00 ; Stop 04/22/17 at 18:46; Status DC Diphenhydramine HCl (Benadryl) 25 mg Q4H PRN PO SEE LABEL COMMENTS; Start 05/01 at 10:00 Epoetin Cristian (Epogen Inj) 10,000 units UNSCH PRN IV PUSH WITH DIALYSIS Last administered on 05/05/17at 11:12; Start 04/25/17 at 13:00 Famotidine (Pepcid Inj) 10 mg Q12HR IV PUSH Last administered on 05/01/17at 22: 19; Start 04/23/17 at 21:00; Stop 05/02/17 at 12:02; Status DC Fluconazole (Diflucan) 100 mg DAILY PO Last administered on 05/07/17at 09:04; Start 05/04/17 at 09:00; Stop 05/08/17 at 08:59; Status DC Furosemide (Lasix Inj) 20 mg ONCE ONCE IV PUSH Last administered on 05/08/17at 00:15; Start 05/08/17 at 00:15; Stop 05/08/17 at 00:21; Status DC Gelatin (Gelfoam 12 Mm/7 Mm Top) 1 foam UNSCH PRN TOP SEE LABEL COMMENTS; Start 04/24/17 at 07:00 Gentamicin Sulfate (Gentamicin Inj) 20 mg UNSCH PRN OTHER WITH DIALYSIS Last administered on 05/05/17at 11:13; Start 04/24/17 at 07:00 Glucagon (Glucagon Inj) 1 mg UNSCH PRN OTHER HYPOGLYCEMIA-SEE COMMENTS; Start 04/25/17 at 08:15 Heparin Sodium (Porcine) (Heparin Inj) UNSCH PRN IV FLUSH SEE PROTOCOL; Start 05/01/17 at 12:00 Heparin Sodium/ Dextrose 250 ml @ 12.438 mls/ hr TITRATE PRN IV Coagulation Management Last administered on 04/23/17at 23:04; Start 04/23/17 at 20:45; Stop 04/29/17 at 11:01; Status DC Hydralazine HCl (Apresoline Inj) 10 mg Q6H PRN IV PUSH SBP> OR = 180, DBP> OR = 100 Last administered on 04/23/17at 01:05; Start 04/21/17 at 21:30 Hydromorphone HCl (Dilaudid Pf Inj) 0.2 mg Q4H PRN IV PUSH BREAKTHROUGH PAIN Last administered on 04/28/17at 08:49; Start 04/23/17 at 23:30 Insulin Aspart (NovoLOG SUPPLEMENTAL SCALE) 1 Q4H SQ Last administered on at 13:22; Start 04/25/17 at 09:00 Insulin Aspart (NovoLOG INJ) 5 units TIDAC SQ Last administered on 04/23/17at 17 :00; Start 04/22/17 at 18:45; Stop 04/24/17 at 04:34; Status DC Insulin Detemir (Levemir Inj) 10 units Q12HR SQ Last administered on 05/09/17at 09:56; Start 05/05/17 at 21:00 Insulin Human Regular (NovoLIN R INJ) 10 units ONCE ONCE IV PUSH Last administered on 04/24/17at 05:30; Start 04/24/17 at 04:45; Stop 04/24/17 at 04:46 ; Status DC Insulin Human Regular 100 units/ Sodium Chloride 100 ml @ 2 mls/hr TITRATE PRN IV Blood Glucose Control; Start 04/24/17 at 10:15; Stop 04/25/17 at 08:11; Status DC Levofloxacin/ Dextrose 100 ml @ 100 mls/hr Q48H IV Last administered on at 16:00; Start 04/25/17 at 16:00; Stop 05/02/17 at 15:59; Status DC Mannitol (Mannitol Inj) 12.5 gm UNSCH PRN IV WITH DIALYSIS; Start 04/24/17 at 07:00 Miscellaneous Information ALL NURSING DEPARTME... UNSCH PRN .XX SEE LABEL COMMENTS; Start 05/08/17 at 13:48; Stop 05/09/17 at 13:48; Status DC Nitroglycerin (Nitrostat Sl) 0.4 mg UNSCH PRN SL CHEST PAIN; Start 04/24/17 at 07:00 Ondansetron HCl (Zofran Inj) 4 mg UNSCH PRN IV PUSH WITH DIALYSIS; Start at 07:00 Oxycodone HCl (Roxicodone) 10 mg Q4H PRN PO PAIN 8-10 Last administered on 05/03at 22:54; Start 04/23/17 at 23:30 Pantoprazole Sodium (Protonix Inj) 40 mg Q12HR IV PUSH Last administered on at 09:54; Start 05/07/17 at 09:00 Polyethylene Glycol/ Electrolytes (Colyte Liq) 4,000 ml ONCE ONCE PO Last administered on 05/07/17at 15:25; Start 05/07/17 at 16:00; Stop 05/07/17 at 16:01 ; Status DC Potassium Chloride 100 ml @ 50 mls/hr Q2H PRN IV SEE LABEL COMMENTS; Start 01/27 at 21:15; Stop 04/22/17 at 18:46; Status DC Rifaximin (Xifaxan) 550 mg BID PO Last administered on 05/01/17at 22:18; Start 04/24/17 at 09:00; Stop 05/02/17 at 11:15; Status DC Sodium Bicarbonate 50 meq/Dextrose 1,000 ml @ 150 mls/hr Q6H40M IV Last administered on 04/25/17at 04:54; Start 04/23/17 at 17:15; Stop 04/25/17 at 08:11 ; Status DC Sodium Bicarbonate 50 meq/Sterile Water 900 ml @ 75 mls/hr Q12H IV ; Start at 16:00; Stop 04/23/17 at 17:08; Status DC Sodium Polystyrene Sulfonate (Kayexalate Liq) 30 gm ONCE ONCE PO Last administered on 04/24/17at 07:32; Start 04/24/17 at 06:30; Stop 04/24/17 at 06:31 ; Status DC Sodium Bicarbonate (Sodium Bicarbonate 8.4% Inj) 100 meq ONCE ONCE IV PUSH Last administered on 04/24/17at 07:31; Start 04/24/17 at 06:30; Stop 04/24/17 at 06:31; Status DC Sodium Chloride 250 ml @ 15 mls/hr ONCE ONCE IV Last administered on at 00:15; Start 05/08/17 at 00:15; Stop 05/08/17 at 16:54; Status DC Sodium Chloride (NS Flush) UNSCH PRN IV FLUSH SEE PROTOCOL; Start 05/01/17 at 12:00 Sodium Chloride 38.5 meq/Sterile Water 1,009.625 ml @ 84 mls/hr Q12H2M IV Last administered on 04/23/17at 08:02; Start 04/22/17 at 20:00; Stop 04/23/17 at 16:05 ; Status DC Sodium Phosphate 15 mmol/Sodium Chloride 105 ml @ 25 mls/hr UNSCH PRN IV SEE LABEL COMMENTS; Start 04/21/17 at 21:15 Tamsulosin HCl (Flomax) 0.4 mg HS PO Last administered on 05/08/17at 22:30; Start 05/03/17 at 21:00 Vancomycin/Sodium Chloride 200 ml @ 200 mls/hr ELECTRONIC SCIENCE TEACHER IV Last administered on 05/01/17at 12:04; Start 04/30/17 at 14:30 Water (Free Water) 200 ml Q6HR PO Last administered on 04/24/17at 06:00; Start 04/23/17 at 18:00; Stop 04/29/17 at 11:01; Status DC Line: Central Venous Catheter Side: Right Location: Jugular A/P Assessment and Plan Patient is 67 year old Male with PMHx of HTN and DM presented to ED via EVAC due to 1 wk hx of decreased po intake. Patient found to be altered, hypertensive with blood glucose greater than 900, elevated anion gap of 29, beta hydroxy of 11.9. Patient admitted to management of DKA. Transitioned to SQ insulin on 04/22. Of note, communication with the patient has been difficult at times. ADstruc supervisor abattoir was used on 04/23 as patient is primarily Mongolian speaking, and the supervisor abattoir could not understand the patient. Nursing staff and medical team has been able to communicate with the patient in Albanian successfully at times but he occasionally slurs his speech/is not understandable. On 04/23 patient was found to have significant transaminitis as well as worsening renal function. Nephrology, GI consulted. A discussion was had with the patient's on 04/23 and she stated that all of the patient's symptoms (including his R leg stiffness/loss of function) were new and that he had been found down for up to 5 hours before coming to the ER. Vascular was consulted at that time and it was noted that patient had no palpable pulses, either femoral, popliteal, dorsalis pedis or post tibial. Ultrasound revealed complete occlusion of blood flow to the R leg and patient was immediately taken to the OR for R leg clot fasciotomy thrombectomy. On 04/24 patient was found to have worsening renal function with Creatinine of 4.85 and a Potassium of 7.1. R int jugular vascular cath was placed and patient underwent HD at that time. Labs were indicative of rhabdomyolysis. Right above knee amputation with wound vac was performed on 04/24. Received one blood transfusion following the procedure. S/P closure of amputation site on 04/27 with drain removal 04/29. Getting HD MWF. Unclear clinical course ahead. Palliative care consulted 04/29 to further elucidate goals of care, appreciate recommendations. PermCath placed 05/01 for continued outpatient dialysis. Case management working on rehab discharge planning, [facility] ([facility] bed [facility]). Critical Care signed off 04/28. Nephrology managing dialysis, appreciate assistance in this patient's care. 05/05: Urology consulted 05/04 to assist with urinary retention - recommending Montalvo catheter for 7 days, Flomax before another trial without the catheter. Follow up with urology as outpatient 05/06: no changes in management, pt stable 05/07: bloody stool this morning with subsequent BPBPR. Stool studies including C -diff sent. Will consult GI at this time. Hold heparin, pt NPO, MIVF started, Protonix 40mg IV BID. Has permcath access. Serial H&H and coag profile. Hbg dropped to 6.9 and he received 2 units PRBC with appropriate response 05/08: Seen after colonoscopy and stable. Op report with findings of ulcers in the colon with biopsies taken GI ordering CT abdomen/pelvis to rule out ischemic event 05/09: Patient feeling well. H&H stable. CTA showing bilaterally occluded internal iliac arteries and global atherosclerosis. Vascular recommended keeping stitches in. Nephrology reduced dialysis to MF (2x weekly). Palliative following. * Neuro: intermittent AMS resolved, Dementia * Initially presented with altered mental status, confusion. Has resolved and patient oriented 3 with no signs of delirium * No previous CVA history * Lipid profile showing triglycerides 200, cholesterol 155, LDL 102, HDL 12.6, A1c 17.7 * Will initiate atorvastatin once liver function is stable, likely as outpt * Rehab at discharge * CV: Hx CABG remotely, Intermittent bradycardia, HTN, critical limb ischemia s/ p amputation * Echo 04/24 showing EF 60-65%, normal LV size, no noted wall motion abnormalities * Vascular surgery performed R leg clot fasciotomy thrombectomy on 04/23. * Right above knee amputation with wound vac was performed on 04/24. * Amputation closure performed 04/26 * Increased Amlodipine to 10mg as patient was persistently hypertensive. * GI: acute transaminitis, difficulty swallowing, hyperammonemia, acute lower GI bleed * LFTs were normal admission, then became significantly elevated most likely secondary to rhabdomyolysis. Returned to baseline following IV fluids and amputation of the right leg above the knee. * US Liver on 04/24 showed findings consistent with hepatic steatosis versus medical liver disease. Cholelithiasis noted. * Hepatitis panel negative. * Patient with bloody BM on 05/07 - colonoscopy on 05/08 showing ulcers in the colon - possibly Crohn's disease, bx pending * CT abdomen/pelvis 05/08: atherosclerotic change throughout, no aneurysm, occlusion of bilateral internal iliac arteries * FEN/RENAL: acute renal failure complicated by chronic kidney disease, hypoalbuminemia, hypocalcemia, rhabdomyolysis * Creatinine elevated on admission at 3.42. Worsened after patient went into rhabdo. Nephrology was consult and patient has been on hemodialysis MWF since * Renal US normal * Nephrology consulted, appreciate recommendations * Will likely need HD for 6 weeks, nephrology will set this up as outpt * CK normalized 05/05 * Attempted to DCd Montalvo on 05/02 - required straight cath over next 24 hours due to inability to urinate - started Flomax on 05/03. Still urinary retention on 05/04 so reordered Montalvo. * Urology consulted and recommending 7 days with Montalvo before another trial ( trial due 05/11/2017). Continue Flomax and follow up with urology as outpatient * ID: UTI complicated by male gender, race, urethral injury, Leukocytosis 04/29 * Found to have UTI on admission with cultures growing Klebsiella, group B strep and was treated with Levaquin for 10 day course * Leukocytosis on admission resolved but recurred 04/29, repeat UA at that time grew Joslyn and patient was started on Diflucan on 05/03. Leukocytosis resolved as of 05/05 * Diflucan d/c'd per nephrology 05/07 (05/03-05/07) * HEME: rhabdomyolysis, acute blood loss anemia, anemia of chronic disease, acute lower GI bleed 05/07 * Goal Hgb > 7 * Nephrology started Epoetin 10,000 units with dialysis * Status post 2 units of packed red blood cells following amputation on 04/24, 1 unit on 05/01 * H/H trended after GI bleed on 05/07 - dropped to 6.9 and received 2 units PRBC 's with response to 7.8 - will continue to trend * Monitor CBC, PRBCs for Hgb <7 or sx * ENDO: Diabetes * Hyperglycemia: HHS on admission, resolved on 04/22 but insulin drip resumed on 04/24. Discontinued insulin drip and started SSI on 04/25 * A1c 17.7 * special educator, sales operations consulted * TSH wnl * Patient now cleared for regular diet, increased Levemir to 10 units BID, will continue and monitor closely * PROPH/LINES: * Heparin 5000U sq q12h, HOLD FOR ACUTE GIB 05/07 * PermCath 05/01/17 Discharge Planning Anticipate transition to [facility] care facility (or SNF) with dialysis, rehab, medication administration. Case Management consulted for SNF placement DW Dr. Bernard, Dr. Cheung Problem List: (1) Hyperammonemia ICD Codes: E72.20 - Disorder of urea cycle metabolism, unspecified Status: Acute (2) Compartment syndrome ICD Codes: T79.A0XA - Compartment syndrome, unspecified, initial encounter Status: Acute (3) Diabetes mellitus ICD Codes: E11.9 - Diabetes mellitus Status: Chronic (4) Hypertension ICD Codes: I10 - Hypertension Status: Acute (5) Acute renal failure ICD Codes: N17.9 - Acute kidney failure, unspecified Status: Acute (6) Hypernatremia ICD Codes: E87.0 - Hyperosmolality and hypernatremia Status: Resolved (7) Hyperkalemia ICD Codes: E87.5 - Hyperkalemia Status: Acute (8) UTI (urinary tract infection) ICD Codes: N39.0 - Urinary tract infection, site not specified Status: Acute (9) Transaminitis ICD Codes: R74.0 - Nonspecific elevation of levels of transaminase and lactic acid dehydrogenase [LDH] Problem Qualifiers (1) Acute renal failure: Qualified Codes: N17.9 - Acute kidney failure, unspecified (2) UTI (urinary tract infection): Qualified Codes: N10 - Acute pyelonephritis Roma Armijo MD May 09, 2017 10:37
--- NOTE | 2017-05-09 11:04 | HHI.HCPN ---
Reason for visit a. To assist with evaluation and management of symptoms including:Pain, debility b. To assist medical decision maker(s) with: better understanding of current medical conditions; weighing benefits/burdens of medical treatment options; making medical treatment decisions. Subjective/Interval History Follow-up on symptom management and goals of care. Patient denies pain. Alert and oriented to self, place and situation. Patient is forgetful he does not remember most of our conversation yesterday. Currently denies pain. Patient endorsing good appetite. Patient states that all the doctors who are seeing him are saying that, "everything is fine" including colonoscopy done yesterday. Repeat hemoglobin 05/08/17 revealed hemoglobin 9.5. Abdomen/pelvis CT on revealed atherosclerotic change seen throughout and no aneurysm. Occlusion of internal iliac arteries bilaterally. No reports of bloody stool since yesterday. Patient had low grade temp yesterday, 99.4 degrees F, otherwise vital signs stable. 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 Patient appears not able to weigh benefits and disadvantages of treatment. Telephone conversation with patient`s Mariann , updated her on patient`s current medical condition. Patient`s who is his health care surrogate would appreciate updates from medical team of all diagnostic tests, procedures and treatment plan. . Family/friend interactions Telephone conversation with patient's . . Advance Directives Living Will: Never completed Health Care Surrogate: Copy in medical record Durable Power of Healthcare Business Analyst: Never completed Advance Directive Specifics Date completed: 04/29/2017 . Health Care Surrogate(s): [facility]-Spouse- Mariann Lozano-[phone] Alternate [facility]- Morris Graff . Objective Vital Signs Date Time Temp Pulse Resp B/P (MAP) Pulse Ox O2 Delivery O2 Flow Rate FiO2 05/09/17 00:11 99.4 82 20 162/74 (103) 98 05/08/17 20:01 96.9 92 20 164/66 (98) 99 05/08/17 16:00 97.4 82 20 172/81 (111) 98 05/08/17 14:00 97.9 76 18 164/75 (104) 100 05/08/17 12:00 98.3 76 18 169/75 (106) 99 05/08/17 11:00 98.3 76 18 169/75 99 Intake & Output 05/09/17 05/09/17 07:00 19:00 # Bowel Movements 1 Physical Exam CONSTITUTIONAL/GENERAL: This is an adequately nourished patient, in no apparent distress. TUBES/LINES/DRAINS: Perm Cath,PIV, Montalvo catheter SKIN: No jaundice, rashes, or lesions. Skin temperature appropriate.Ecchymoses on upper extremities.Surgical incision to R-AKA. Not diaphoretic. CARDIOVASCULAR: S1, S2, regular rhythm, systolic murmur, no rub no gallop. RESPIRATORY/CHEST: Symmetric, unlabored respirations. Lungs clear to auscultation. No wheezes, rales, or rhonchi. GASTROINTESTINAL: Abdomen soft, non-tender, nondistended. No guarding. Hypoactive bowel sounds GENITOURINARY: Without palpable bladder distension. Montalvo catheter. MUSCULOSKELETAL: Right AKA incision well approximated, sutured, no erythema or drainage. Open to air. Left lower extremity with diminished pulse, no edema NEUROLOGICAL: Awake and alert, oriented to self and place and forgetful. Motor and sensory grossly within normal limits. Follows commands. Moves all extremities. PSYCHIATRIC: No obvious anxiety/depression. no apparent hallucinations or other psychotic thought process. . Diagnostic Tests Laboratory Laboratory Tests Test 05/07/17 08:46 05/07/17 08:50 05/07/17 08:56 05/07/17 10:10 Stool C. difficile Toxin (PCR) NEGATIVE (NEGATIVE) Stl C. difficile Toxin Epiderm 027 PRESUMPTIVE NEGATIVE White Blood Count 8.3 TH/MM3 (4.0-11.0) Red Blood Count 2.68 MIL/MM3 (4.50-5.90) Hemoglobin 8.5 GM/DL (13.0-17.0) Hematocrit 25.2 % (39.0-51.0) Mean Corpuscular Volume 93.9 FL (80.0-100.0) Mean Corpuscular Hemoglobin 31.9 PG (27.0-34.0) Mean Corpuscular Hemoglobin Concent 34.0 % (32.0-36.0) Red Cell Distribution Width 16.0 % (11.6-17.2) Platelet Count 280 TH/MM3 (150-450) Mean Platelet Volume 7.9 FL (7.0-11.0) Neutrophils (%) (Auto) 72.2 % (16.0-70.0) Lymphocytes (%) (Auto) 17.7 % (9.0-44.0) Monocytes (%) (Auto) 8.4 % (0.0-8.0) Eosinophils (%) (Auto) 0.9 % (0.0-4.0) Basophils (%) (Auto) 0.8 % (0.0-2.0) Neutrophils # (Auto) 6.0 TH/MM3 (1.8-7.7) Lymphocytes # (Auto) 1.5 TH/MM3 (1.0-4.8) Monocytes # (Auto) 0.7 TH/MM3 (0-0.9) Eosinophils # (Auto) 0.1 TH/MM3 (0-0.4) Basophils # (Auto) 0.1 TH/MM3 (0-0.2) CBC Comment DIFF FINAL Differential Comment Blood Urea Nitrogen 30 MG/DL (7-18) Creatinine 4.51 MG/DL (0.60-1.30) Random Glucose 168 MG/DL (74-106) Calcium Level 8.4 MG/DL (8.5-10.1) Sodium Level 136 MEQ/L (136-145) Potassium Level 3.8 MEQ/L (3.5-5.1) Chloride Level 99 MEQ/L (98-107) Carbon Dioxide Level 26.3 MEQ/L (21.0-32.0) Anion Gap 11 MEQ/L (5-15) Estimat Glomerular Filtration Rate 13 ML/MIN (>89) Prothrombin Time 10.4 SEC (9.8-11.6) Prothromb Time International Ratio 1.0 RATIO Activated Partial Thromboplast Time 22.9 SEC (24.3-30.1) Test 05/07/17 15:27 05/07/17 20:42 05/08/17 01:23 05/08/17 07:30 White Blood Count 9.6 TH/MM3 (4.0-11.0) 8.2 TH/MM3 (4.0-11.0) 7.6 TH/MM3 (4.0-11.0) 9.4 TH/MM3 (4.0-11.0) Red Blood Count 2.23 MIL/MM3 (4.50-5.90) 2.24 MIL/MM3 (4.50-5.90) 2.27 MIL/MM3 (4.50-5.90) 2.44 MIL/MM3 (4.50-5.90) Hemoglobin 7.2 GM/DL (13.0-17.0) 7.1 GM/DL (13.0-17.0) 6.9 GM/DL (13.0-17.0) 7.8 GM/DL (13.0-17.0) Hematocrit 21.4 % (39.0-51.0) 21.1 % (39.0-51.0) 20.9 % (39.0-51.0) 22.6 % (39.0-51.0) Mean Corpuscular Volume 95.8 FL (80.0-100.0) 94.2 FL (80.0-100.0) 91.9 FL (80.0-100.0) 92.6 FL (80.0-100.0) Mean Corpuscular Hemoglobin 32.1 PG (27.0-34.0) 31.7 PG (27.0-34.0) 30.6 PG (27.0-34.0) 31.8 PG (27.0-34.0) Mean Corpuscular Hemoglobin Concent 33.5 % (32.0-36.0) 33.6 % (32.0-36.0) 33.3 % (32.0-36.0) 34.4 % (32.0-36.0) Red Cell Distribution Width 15.9 % (11.6-17.2) 16.5 % (11.6-17.2) 16.3 % (11.6-17.2) 17.4 % (11.6-17.2) Platelet Count 255 TH/MM3 (150-450) 271 TH/MM3 (150-450) 287 TH/MM3 (150-450) 269 TH/MM3 (150-450) Mean Platelet Volume 7.9 FL (7.0-11.0) 7.7 FL (7.0-11.0) 6.8 FL (7.0-11.0) 7.5 FL (7.0-11.0) Neutrophils (%) (Auto) 77.4 % (16.0-70.0) 73.9 % (16.0-70.0) 71.8 % (16.0-70.0) 75.3 % (16.0-70.0) Lymphocytes (%) (Auto) 13.9 % (9.0-44.0) 15.2 % (9.0-44.0) 16.3 % (9.0-44.0) 13.8 % (9.0-44.0) Monocytes (%) (Auto) 8.0 % (0.0-8.0) 9.6 % (0.0-8.0) 10.5 % (0.0-8.0) 10.1 % (0.0-8.0) Eosinophils (%) (Auto) 0.2 % (0.0-4.0) 0.6 % (0.0-4.0) 0.5 % (0.0-4.0) 0.2 % (0.0-4.0) Basophils (%) (Auto) 0.5 % (0.0-2.0) 0.7 % (0.0-2.0) 0.9 % (0.0-2.0) 0.6 % (0.0-2.0) Neutrophils # (Auto) 7.4 TH/MM3 (1.8-7.7) 6.0 TH/MM3 (1.8-7.7) 5.5 TH/MM3 (1.8-7.7) 7.1 TH/MM3 (1.8-7.7) Lymphocytes # (Auto) 1.3 TH/MM3 (1.0-4.8) 1.2 TH/MM3 (1.0-4.8) 1.2 TH/MM3 (1.0-4.8) 1.3 TH/MM3 (1.0-4.8) Monocytes # (Auto) 0.8 TH/MM3 (0-0.9) 0.8 TH/MM3 (0-0.9) 0.8 TH/MM3 (0-0.9) 0.9 TH/MM3 (0-0.9) Eosinophils # (Auto) 0.0 TH/MM3 (0-0.4) 0.1 TH/MM3 (0-0.4) 0.0 TH/MM3 (0-0.4) 0.0 TH/MM3 (0-0.4) Basophils # (Auto) 0.1 TH/MM3 (0-0.2) 0.1 TH/MM3 (0-0.2) 0.1 TH/MM3 (0-0.2) 0.1 TH/MM3 (0-0.2) CBC Comment DIFF FINAL DIFF FINAL DIFF FINAL DIFF FINAL Differential Comment Blood Urea Nitrogen 27 MG/DL (7-18) Creatinine 4.35 MG/DL (0.60-1.30) Random Glucose 88 MG/DL (74-106) Calcium Level 8.0 MG/DL (8.5-10.1) Phosphorus Level 3.9 MG/DL (2.5-4.9) Sodium Level 142 MEQ/L (136-145) Potassium Level 4.1 MEQ/L (3.5-5.1) Chloride Level 104 MEQ/L (98-107) Carbon Dioxide Level 28.2 MEQ/L (21.0-32.0) Anion Gap 10 MEQ/L (5-15) Estimat Glomerular Filtration Rate 14 ML/MIN (>89) Total Creatine Kinase 85 U/L (39-308) Troponin I 0.02 NG/ML (0.02-0.05) Test 05/08/17 17:27 Hemoglobin 9.5 GM/DL (13.0-17.0) Hematocrit 28.0 % (39.0-51.0) Result Diagram: 05/08/17 1727 05/08/17 0123 Microbiology Microbiology Date/Time Source Procedure Growth Status 05/07/17 08:46 Stool Stool Stool Occult Blood (ANN) - Final HEMOCCULT POSITIVE Complete 05/07/17 08:46 Stool Stool - Final NO ENTERIC PATHOGENS DETECTED BY PCR... Complete Imaging Last 48 hours Impressions Abdomen/Pelvis CT 05/08/17 0000 Signed Impressions: Service Date/Time: April 16:58 - CONCLUSION: 1. Atherosclerotic change seen throughout. No aneurysm is seen. 2. 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 Ash Salomon MD Procedures 04/23 thrombectomy and right lower leg fasciotomy Central line placement 04/24-Vas-Cath placement 04/2550-[id number] amputation of right lower extremity 04/28-revision of above-knee amputation of right lower extremity, closure 05/01-PermCath placement 05/08-colonoscopy with biopsy . Assessment and Plan Disease Oriented Problem List: (1) Acute renal failure (2) CKD (chronic kidney disease) stage 3, GFR 30-59 ml/min (3) DKA (diabetic ketoacidoses) (4) Diabetes mellitus (5) Transaminitis (6) Compartment syndrome (7) Hypernatremia (8) Hyperammonemia Symptom Scale: (1) Pain 0-10 Scale: Unable to quantify Comment: Recent Right AKA. . (2) Debility 0-10 Scale: Unable to quantify (Recent Right AKA) Comment: Progressive . Pertinent Non-Medical Issues Psychosocial:Patient is originally from [place]. He came to [place] in [place]. He got and moved to [place] with his of +25 years. 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 Patient has 2 adult children, a daughter Junior and son Dajuan. Patient lives with his . Spiritual: Patient is [employer] Legal:Completed and signed HCS Ethical issues impacting care: None identified at this time . Important Contacts Spouse-Mariann Lozano-[phone] Son-Mejia Graffsuzy . Prognosis Mr. Loyola is a 67 years old male with a past medical history significant for coronary artery disease s/p CABG and 2 stent placement, myocardial infarction, peripheral arterial disease, diabetes mellitus, hypertension and hyperlipidemia. Patient was brought in on 04/21/17 by EMS with complaints of decreased appetite, decreased thirst for approximately a week. Clinical course complicated with worsening renal function, delirium and nonsalvageable lower extremity ischemia requiring amputation of right lower extremity. Given ongoing comorbidities, patient remains at high risk for further complications, deterioration and decline. . Code Status: No Code Plan PLAN: Legal decision maker: Patient is able to participate in medical decision making. Due to reported intermittent periods of delirium during this hospitalization, lack of insight and forgetfulness, recommending medical decision making to be done in collaboration with patient`s spouse Mariann Lozano whom he designated as his HCS or his son Nir Graff whom he designated as his alternate HCS. Goals: Aggressive short of no code. Patient referred to [place] for a shwetha bed if available. CODE STATUS: No code DNR Patient is very forgetful and lacks insight regarding his medical condition. Patient appears not able to weigh benefits and disadvantages of treatment. Telephone conversation with patient`s Mariann , updated her on patient`s current medical condition. Patient`s who is his health care surrogate would appreciate updates from medical team of all diagnostic tests, procedures and treatment plan. SYMPTOMS: * Pain: Recent right above knee amputation. Risk for phantom pain. Patient has Oxycodone 5mg -10mg q 4 hrs prn and Hydromorphone 0.2mg q 4 hrs prn. Sparingly needing prn medications. Patient states right leg causes pain when left in one position too long or when being removed. Continue assessing pain. Risk for phantom pain. Patient status post colonoscopy with biopsy. Denies pain today. * Debility: Patient recently had above the knee amputation to his right lower extremity and is currently on hemodialysis. Physical therapy consulted, recommended PT and OT at [facility]. This may be a challenging time for patient given his other comorbidities and confusion. states she would like to take him home but is willing for short-term rehabilitation as recommended by PT. Jeff is following for possible shwetha bed admission when ready to be discharged. Palliative care will continue to follow the patient during hospital course as condition evolves, to assist patient/decision-maker with understanding of their medical conditions, weighing benefits/burdens of treatment options, for clarification of goals of treatment. Additionally will assist with any symptoms of palliative concern Ruby Wilson May 09, 2017 11:04
--- NOTE | 2017-05-09 11:11 | HHI.GIFU ---
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 Says he had BM earlier, did not seen blood. denies abd pain. tolerating diet. (Kandi Ríos) Objective Vitals I&O Vital Signs Date Time Temp Pulse Resp B/P (MAP) Pulse Ox O2 Delivery O2 Flow Rate FiO2 05/09/17 00:11 99.4 82 20 162/74 (103) 98 05/08/17 20:01 96.9 92 20 164/66 (98) 99 05/08/17 16:00 97.4 82 20 172/81 (111) 98 05/08/17 14:00 97.9 76 18 164/75 (104) 100 05/08/17 12:00 98.3 76 18 169/75 (106) 99 05/08/17 11:00 98.3 76 18 169/75 99 I/O 05/08/17 05/08/17 05/08/17 05/09/17 05/09/17 05/09/17 07:00 15:00 23:00 07:00 15:00 23:00 Intake Total 400 ml 620 ml 960 ml Output Total 1450 ml Balance 400 ml -830 ml 960 ml Intake Oral 960 ml Packed Cells 400 ml 400 ml Blood Product IV Normal Saline Flush 20 ml Other 200 ml Output Urine Total 1450 ml # Bowel Movements 1 Laboratory Laboratory Tests Test 05/08/17 17:27 Hemoglobin 9.5 Hematocrit 28.0 Date/Time Source Procedure Growth Status 05/03/17 12:47 Blood Peripheral Aerobic Blood Culture - Final NO GROWTH IN 5 DAYS Complete 05/03/17 12:47 Blood Peripheral Anaerobic Blood Culture - Final NO GROWTH IN 5 DAYS Complete 05/07/17 08:46 Stool Stool Stool Occult Blood (ANN) - Final HEMOCCULT POSITIVE Complete 05/04/17 16:00 Urine Clean Catch Urine Culture - Final Joslyn Albicans Complete Imaging Last Impressions Abdomen/Pelvis CT 05/08/17 0000 Signed Impressions: Service Date/Time: April 16:58 - CONCLUSION: 1. Atherosclerotic change seen throughout. No aneurysm is seen. 2. 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 Ash Salomon MD Chest X-Ray 05/03/17 0000 Signed Impressions: Service Date/Time: Wednesday, May 03, 2017 09:37 - CONCLUSION: No acute cardiopulmonary disease. Red Toro MD Catheter Placement X-Ray 05/01/17 0000 Signed Impressions: Service Date/Time: April 11:25 - CONCLUSION: Uncomplicated PermaCath placement as above. Dmitriy Kumar MD Liver Ultrasound 04/24/17 0000 Signed Impressions: Service Date/Time: April 15:02 - CONCLUSION: 1. Mild hepatomegaly with increased hepatic echogenicity likely reflecting hepatic steatosis versus medical liver disease. 2. Cholelithiasis with mildly distended gallbladder and gallbladder wall thickening which may be chronic in etiology. Further evaluation may be performed with HIDA scan if there is significant clinical concern regarding acute cholecystitis. Dmitriy Kumar MD Renal Ultrasound 04/22/17 0000 Signed Impressions: Service Date/Time: Saturday, April 22, 2017 21:27 - CONCLUSION: No obstructive uropathy or other acute abnormality. Incidentally seen benign-appearing left renal cyst. Ash Mason MD Head CT 04/21/17 0000 Signed Impressions: Service Date/Time: Friday, April 21, 2017 18:29 - CONCLUSION: Normal noncontrast head CT. Ash Mason MD Physical Exam HEENT: normocephalic; atraumatic; no jaundice. CHEST: CTA CARDIAC: tachy ABDOMEN: Soft, nondistended, nontender; no hepatosplenomegaly; bowel sounds are present in all four quadrants. EXTREMITIES: Right AKA approximated with stitches. SKIN: Normal; no rash; no jaundice. 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 (Kandi Ríos JOINT SETTER) Assessment and Plan Plan Assessment: RECONSULT FOR RECTAL BLEEDING - BRBPR- reports of 3 episodes of rectal bleeding that began this AM. States diarrhea yesterday but no bleeding. H/H last checked at 8 this morning 8.5/25.2 stable since last transfusion on May 02. Pt reports previous colonoscopy at this facility, however no record of this and he is a poor historian. Denies nausea, vomiting, acid reflux, heartburn. Last EGD noted in chart 2008 --> Hiatal hernia. Gastric AVMs S/P cautery. Erosive gastritis - Transaminitis- LFTs WNL on admission, now markedly elevated Currently: AST-[id number] ALT-335 Alk phos-139 T bili-1. Denies history of liver issues. Denies ETOH, illicit drug use. Does not take any prescription or OTC drugs. No hypotensive episodes since admission. No recent abdominal imaging. Likely secondary to rhabdomyolysis Liver PHILIP was done as follows: US liver--> Mild hepatomegaly with increased hepatic echogenicity likely reflect hepatic steatosis vs medical liver disease. Hepatitis panel negative, MAUDE, ASMA negative, AMA <20, Celiac panel negative. [id number] Ceruloplasmin-28 LFTs now WNL - DKA- ABG- pCO2-25 HCO3-11 base excess-15.2. Subq and IV insulin, hgb A1C-17.7 - Rhabdomyolysis, compartment syndrome, complete occlusion of blood supply to R leg S/P right leg clot fasciotomy thrombectomy and R AKA - CHANELL on CKD- GFR-13 - now on dialysis M,W, F 05/09/17 s/p colonoscopy found colon ulcer, poss crohn's, rectal ulcer. path pending. CTA showed occluded iliac arteries. d/w palliative care. d/w pts Mariann [phone]. pt is comfortable, no GI complaints, eating. today's labs pending Plan: - await biopsies - GANESH - supportive care - notify GI of active bleeding Pt has been seen and examined by myself and Dr. Brown and this note is written on his behalf (Kandi Ríos) Physician Comments Patient seen and examined Agree with above Continue with current supportive care Monitor labs Okay for heparin at this point cautiously (Ervin Brown MD) Kandi Ríos May 09, 2017 11:11 Ervin Brown MD May 09, 2017 23:30
--- NOTE | 2017-05-09 12:40 | PD.CAR.PN ---
CVT Progress Note Subjective/Hospital Course: 04/24/2017 Patient with total occlusion of the flow to her right leg underwent yesterday thromboembolectomy of the iliac and femoral systems and revascularization of the leg with fasciotomy Today while the patient has flow the leg from just above the knee down is purple and discolored It is insensate and patient has no motoric activity Muscles are discolored grayish appearing and devitalized At this point were essentially perfusing a devitalized extremity due to the length of time of occlusion of the blood flow Patient is now on dialysis consequently producing massive amounts of creatinine kinase with a massive breakdown of the muscle and of course resulting hyperkalemia and metabolic derangements I discussed this with his and this patient needs urgent above-knee amputation We will go ahead with surgery today considering that this is a nonviable extremity 04/25/2017 Patient underwent yesterday an urgent right above-knee guillotine staged amputation for worsening systemic acidemia/metabolic acidosis renal failure. He was found to have massive amount of muscle tissue which was clearly flushing out causing myoglobinuria and all the consequences of the same Patient now doing better systemically Wound VAC drainage is serosanguineous Once the swelling of the thigh goes down the bit possibly tomorrow will take patient back to the operating room to close the amputation site Patient's hemoglobin dropped to 6.9 this morning yet I was not informed about the despite the fact that have operated on this patient just few hours before Grateful for Dr. Moulton and his team for expert management Likely will take patient to the operating room tomorrow to close the stump 04/27/2017 Patient status post second stage above-knee amputation of the right leg with closure of the stump Area is clean KANCHAN drainage has decreased We will leave KANCHAN for another day and then remove it Patient doing systemically somewhat better Nothing to add to care at this time and hemoglobin remains stable 04/28/2017 Stump is clean and dry dressing is intact KANCHAN drainage about 130 cc in the last 24 hours We will likely DC KANCHAN tomorrow Patient may transfer to floor from my point 04/29/2017 Incision clean and dry DC KANCHAN Change dressings daily Stitches will stay in for about 3 weeks total in the face of delayed healing and ischemia 04/22/2017 Left AKA stump healing very nicely Incision is clean and dry Do not remove stitches yet considering delayed healing and comorbidities Objective: Vital Signs Date Time Temp Pulse Resp B/P (MAP) Pulse Ox O2 Delivery O2 Flow Rate FiO2 05/09/17 08:00 98.7 89 16 161/76 (104) 100 05/09/17 00:11 99.4 82 20 162/74 (103) 98 05/08/17 20:01 96.9 92 20 164/66 (98) 99 05/08/17 16:00 97.4 82 20 172/81 (111) 98 05/08/17 14:00 97.9 76 18 164/75 (104) 100 Result Diagram: 05/08/17 1727 05/08/17 0123 Jean Pierre Auguste MD May 09, 2017 12:40
[2017-05-09 12:59] LABS: AUTOMATED NEUTROPHIL # 5.9 TH/MM3 (1.8-7.7); BASOPHIL # 0.1 TH/MM3 (0-0.2); BASOPHIL % 0.8 % (0.0-2.0); EOSINOPHIL # 0.2 TH/MM3 (0-0.4); EOSINOPHIL % 2.1 % (0.0-4.0); HEMATOCRIT 24.7 % (39.0-51.0); HEMOGLOBIN 8.4 GM/DL (13.0-17.0); LYMPH % 14.5 % (9.0-44.0); LYMPHOCYTE # 1.2 TH/MM3 (1.0-4.8); MEAN CELL VOLUME 88.7 FL (80.0-100.0); MEAN CORPUSCULAR HEMOGLOBIN 30.3 PG (27.0-34.0); MEAN CORPUSCULAR HGB CONC 34.1 % (32.0-36.0); MEAN PLATELET VOLUME 7.2 FL (7.0-11.0); MONOCYTE # 0.8 TH/MM3 (0-0.9); NEUT % 72.6 % (16.0-70.0); PLATELET COUNT 301 TH/MM3 (150-450); RED BLOOD COUNT 2.78 MIL/MM3 (4.50-5.90); RED CELL DISTRIBUTION WIDTH 17.7 % (11.6-17.2); WHITE BLOOD COUNT 8.1 TH/MM3 (4.0-11.0)
--- NOTE | 2017-05-09 13:14 | HHI.NPPN ---
Subjective History of Present Illness 67 year old with Hypertension,DKA, DM, ARF Additional Remarks doing better Objective Data Data 05/09/17 05/10/17 19:00 07:00 Output Total 1300 ml Balance -1300 ml Output Urine Total 1300 ml Vital Signs Date Time Temp Pulse Resp B/P (MAP) Pulse Ox O2 Delivery O2 Flow Rate FiO2 05/09/17 08:00 98.7 89 16 161/76 (104) 100 05/09/17 00:11 99.4 82 20 162/74 (103) 98 05/08/17 20:01 96.9 92 20 164/66 (98) 99 05/08/17 16:00 97.4 82 20 172/81 (111) 98 05/08/17 14:00 97.9 76 18 164/75 (104) 100 -: 05/08/17 1727 05/08/17 0123 Physical Exam General Appearance: Well Developed, Well Nourished Neck Neck Exam: Neck Supple Pulmonary Resp Exam: Clear Bilaterally, Breath Sounds Equal Cardiology CV Exam: Regular, Normal Sinus Rhythm Gastrointestinal/Abdomen GI Exam: Soft, Non-Tender, Bowel Sounds Present Extremeties Extremities Exam: Moderate Edema Extremeties Remarks Rt AKA Neurologic Neuro Exam: Alert Assessment/Plan Problem List: (1) Acute renal failure ICD Codes: N17.9 - Acute kidney failure, unspecified Status: Acute Plan: Patient has chronic kidney disease and acute renal failure with rhabdomyolysis creatinine 4.53 -> 5.9 -> 7.2 -> 5.3 -> 6.3->5.09 -> 5.5 ->4.5-> 5.3->5.4->3.8- > 4.5->4.3 UOP 1.3 L may decrease frequency to twice a week as passing more urine Monitor BMP check for signs of improvement of acute renal failure as creatinine declined to 4.3 yesterday await today if declined no need to do dialysis and plan to take off PermCath On HD MF - PermCath placed ARF due to Rhabdo will wait [address] AVF he may transfer to rehab Right lower leg ischemia now status post right AKA On Epogen for anemia - transfuse as needed. (2) CKD (chronic kidney disease) stage 3, GFR 30-59 ml/min ICD Codes: N18.3 - Chronic kidney disease, stage 3 (moderate) Status: Chronic Plan: kidney ultrasound left renal cyst (3) Diabetes ICD Codes: E11.9 - Type 2 diabetes mellitus without complications Status: Chronic Plan: History of DKA continue to monitor (4) Hypertension ICD Codes: I10 - Hypertension Status: Acute Plan: BP stable (5) DKA (diabetic ketoacidoses) ICD Codes: E13.10 - Other specified diabetes mellitus with ketoacidosis without coma Status: Acute Plan: Resolved (6) Hypernatremia ICD Codes: E87.0 - Hyperosmolality and hypernatremia Status: Resolved Problem Qualifiers (1) Acute renal failure: Qualified Codes: N17.9 - Acute kidney failure, unspecified Natacha Suarez MD May 09, 2017 13:14
[2017-05-09 13:30] VITALS: BP 173/74; PULSE 80; RESP 15; TEMP 97.9; O2SAT 97
[2017-05-09 13:40] LABS: ALT (GPT) 11 U/L (12-78); AST (GOT) 15 U/L (15-37); BICARBONATE 24.4 MEQ/L (21.0-32.0); BLOOD UREA NITROGEN 30 MG/DL (7-18); CALCIUM 7.8 MG/DL (8.5-10.1); CHLORIDE 105 MEQ/L (98-107); CREATININE 4.36 MG/DL (0.60-1.30); GLOMERULAR FILTRATION RATE 14 ML/MIN (>89); GLUCOSE,RANDOM 200 MG/DL (74-106); SODIUM (NA) 139 MEQ/L (136-145)
[2017-05-09 13:42] LABS: ALKALINE PHOSPHATASE 70 U/L (45-117); TOTAL BILIRUBIN ADULT 0.3 MG/DL (0.2-1.0); TOTAL PROTEIN 5.3 GM/DL (6.4-8.2)
[2017-05-09 16:00] VITALS: BP 133/61; PULSE 91; RESP 14; TEMP 97.7; O2SAT 100
[2017-05-09 19:35] LABS: HEMATOCRIT 26.3 % (39.0-51.0); HEMOGLOBIN 8.8 GM/DL (13.0-17.0)
[2017-05-09] MEDS: TAMSULOSIN HCL 0.4 MG CAP PO SCH (19:49)
[2017-05-09 20:00] VITALS: BP 131/58; PULSE 88; RESP 18; TEMP 98.2; O2SAT 99
[2017-05-09 20:21] LABS: PROTHROMBIN TIME - PATIENT 10.1 SEC (9.8-11.6)
[2017-05-09 20:31] LABS: D-DIMER 13.03 MG/L FEU (0.00-0.50)
[2017-05-09] MEDS: ATORVASTATIN 40 MG TAB PO SCH (22:03)
[2017-05-09] MEDS: HEPARIN SODIUM - SQ 10,000 UNITS/ML VIAL SQ SCH (22:17)
[2017-05-10] VITALS: BP 156/70; PULSE 87; RESP 18; TEMP 98.5; O2SAT 100
[2017-05-10] MEDS: INSULIN ASPART SUPPLEMENTAL SCALE SQ SCH ×6 (01:44→20:56)
[2017-05-10] MEDS: SODIUM CHLOR 0.9% 1000 ML INJ 1,000 ML IV SCH ×4 (02:42→20:57)
[2017-05-10] MEDS: CHLORHEXIDINE GLUCONATE 2 % 1 PACK (2 CLOTHS) TOP SCH ×2 (02:50→20:57)
[2017-05-10 07:21] LABS: AUTOMATED NEUTROPHIL # 6.4 TH/MM3 (1.8-7.7); BASOPHIL # 0.1 TH/MM3 (0-0.2); BASOPHIL % 0.6 % (0.0-2.0); EOSINOPHIL # 0.1 TH/MM3 (0-0.4); HEMATOCRIT 25.7 % (39.0-51.0); HEMOGLOBIN 8.9 GM/DL (13.0-17.0); LYMPH % 14.2 % (9.0-44.0); LYMPHOCYTE # 1.2 TH/MM3 (1.0-4.8); MEAN CELL VOLUME 90.5 FL (80.0-100.0); MEAN CORPUSCULAR HEMOGLOBIN 31.3 PG (27.0-34.0); MEAN CORPUSCULAR HGB CONC 34.6 % (32.0-36.0); MEAN PLATELET VOLUME 7.1 FL (7.0-11.0); MONO % 11.1 % (0.0-8.0); NEUT % 73.1 % (16.0-70.0); PLATELET COUNT 318 TH/MM3 (150-450); RED BLOOD COUNT 2.84 MIL/MM3 (4.50-5.90); RED CELL DISTRIBUTION WIDTH 17.5 % (11.6-17.2); WHITE BLOOD COUNT 8.8 TH/MM3 (4.0-11.0)
[2017-05-10 07:54] LABS: ALBUMIN 2.2 GM/DL (3.4-5.0); ALKALINE PHOSPHATASE 68 U/L (45-117); ALT (GPT) 12 U/L (12-78); AST (GOT) 20 U/L (15-37); BICARBONATE 24.1 MEQ/L (21.0-32.0); BLOOD UREA NITROGEN 30 MG/DL (7-18); CALCIUM 8.2 MG/DL (8.5-10.1); CHLORIDE 105 MEQ/L (98-107); CREATININE 4.23 MG/DL (0.60-1.30); GLOMERULAR FILTRATION RATE 14 ML/MIN (>89); GLUCOSE,RANDOM 60 MG/DL (74-106); SODIUM (NA) 139 MEQ/L (136-145); TOTAL BILIRUBIN ADULT 0.3 MG/DL (0.2-1.0); TOTAL PROTEIN 5.8 GM/DL (6.4-8.2)
[2017-05-10 08:00] VITALS: BP 149/70; PULSE 88; RESP 18; TEMP 98.6; O2SAT 98
[2017-05-10] MEDS: PANTOPRAZOLE SODIUM 40 MG VIAL IV PUSH SCH ×2 (08:21→20:55)
[2017-05-10] MEDS: SODIUM CHLORIDE 0.9% FLUSH 10 ML FLUSH IV FLUSH SCH ×2 (08:21→20:56)
[2017-05-10] MEDS: INSULIN DETEMIR 100 UNITS/ML VIAL SQ SCH ×2 (08:25→20:56)
--- NOTE | 2017-05-10 10:10 | HHI.NPPN ---
Subjective History of Present Illness 67 year old with Hypertension,DKA, DM, ARF Additional Remarks Patient is alert, no SOB, no pain in Rt. leg. Objective Data Data Vital Signs Date Time Temp Pulse Resp B/P (MAP) Pulse Ox O2 Delivery O2 Flow Rate FiO2 05/10/17 08:00 98.6 88 18 149/70 (96) 98 05/10/17 00:00 98.5 87 18 156/70 (98) 100 05/09/17 20:00 98.2 88 18 131/58 (82) 99 05/09/17 16:00 97.7 91 14 133/61 (85) 100 05/09/17 13:30 97.9 80 15 173/74 (107) 97 -: 05/10/17 0631 05/10/17 0631 Physical Exam General Appearance: Well Nourished, No Acute Distress, Comfortable Neck Neck Exam: Neck Supple Pulmonary Resp Exam: Clear Bilaterally, Breath Sounds Equal Cardiology CV Exam: Regular, Normal Sinus Rhythm Gastrointestinal/Abdomen GI Exam: Soft, Non-Tender, Bowel Sounds Present Extremeties Extremities Exam: Moderate Edema (Rt. AKA.) Neurologic Neuro Exam: Alert, Awake Psychiatric Psych Exam: Appropriate Responses Assessment/Plan Problem List: (1) Acute renal failure ICD Codes: N17.9 - Acute kidney failure, unspecified Status: Acute Plan: Patient has chronic kidney disease and acute renal failure with rhabdomyolysis creatinine 4.53 -> 5.9 -> 7.2 -> 5.3 -> 6.3->5.09 -> 5.5 ->4.5-> 5.3->5.4->3.8- > 4.5->4.3 UOP 1.3 L may decrease frequency to twice a week as passing more urine Monitor BMP check for signs of improvement of acute renal failure. ARF due to Rhabdo will wait [address] AVF he may transfer to rehab Right lower leg ischemia now status post right AKA. Creatinine is slightly better, off HD since 05/03. (2) CKD (chronic kidney disease) stage 3, GFR 30-59 ml/min ICD Codes: N18.3 - Chronic kidney disease, stage 3 (moderate) Status: Chronic Plan: kidney ultrasound left renal cyst (3) Diabetes ICD Codes: E11.9 - Type 2 diabetes mellitus without complications Status: Chronic Plan: History of DKA continue to monitor (4) Hypertension ICD Codes: I10 - Hypertension Status: Acute Plan: BP stable (5) DKA (diabetic ketoacidoses) ICD Codes: E13.10 - Other specified diabetes mellitus with ketoacidosis without coma Status: Acute Plan: Resolved (6) Hypernatremia ICD Codes: E87.0 - Hyperosmolality and hypernatremia Status: Resolved Problem Qualifiers (1) Acute renal failure: Qualified Codes: N17.9 - Acute kidney failure, unspecified Halley Tubbs MD May 10, 2017 10:09
--- NOTE | 2017-05-10 10:13 | HHI.FPPN ---
Subjective Remarks No acute events overnight. Patient was restarted on Heparin last night and he does not report any bloody BM's. States he feels great with no CP, SOB, Abd pain , N/V. Objective Vitals Vital Signs Date Time Temp Pulse Resp B/P (MAP) Pulse Ox O2 Delivery O2 Flow Rate FiO2 05/10/17 08:00 98.6 88 18 149/70 (96) 98 05/10/17 00:00 98.5 87 18 156/70 (98) 100 05/09/17 20:00 98.2 88 18 131/58 (82) 99 05/09/17 16:00 97.7 91 14 133/61 (85) 100 05/09/17 13:30 97.9 80 15 173/74 (107) 97 I/O 05/09/17 05/09/17 05/09/17 05/10/17 05/10/17 05/10/17 07:00 15:00 23:00 07:00 15:00 23:00 Intake Total 240 ml 480 ml Output Total 1300 ml 700 ml 750 ml Balance -1300 ml -460 ml -270 ml Intake Oral 240 ml 480 ml Output Urine Total 1300 ml 700 ml 750 ml # Bowel Movements 1 0 Result Diagram: 05/10/17 0631 05/10/17 0631 Objective Remarks GENERAL: This is a thin male, lying in bed in NAD. SKIN: No rashes, ecchymoses or lesions outside of RLE as noted below. Perm cath in right chest wall with no draining or erythema noted. HEAD: Atraumatic. Normocephalic. EYES: Pupils equal round and reactive. Extraocular motions intact. CARDIOVASCULAR: Regular rate and rhythm without murmurs, gallops, or rubs. RESPIRATORY: Clear to auscultation. Breath sounds equal bilaterally. No wheezes , rales, or rhonchi. GASTROINTESTINAL: Abdomen soft, non-tender, nondistended. No hepato-splenomegaly , or palpable masses. No guarding. MUSCULOSKELETAL: RLE with [id number] amputation, site is clean with no drainage, stitches intact. No erythema or drainage noted at surgical site. Also sutures appreciated in the R inguinal area with no drainage or erythema. Skin is warm above level of amputation. LLE warm to touch, +palpated left DP pulse : Montalvo in place with no erythema or discharge appreciated. NEUROLOGICAL: Cranial nerves grossly intact. Moving LLE and upper extremities spontaneously. Answers questions appropriately. Line: Central Venous Catheter Side: Right Location: Jugular A/P Assessment and Plan Patient is 67 year old Male with PMHx of HTN and DM presented to ED via EVAC due to 1 wk hx of decreased po intake. Patient found to be altered, hypertensive with blood glucose greater than 900, elevated anion gap of 29, beta hydroxy of 11.9. Patient admitted to management of DKA. Transitioned to SQ insulin on 04/22. Of note, communication with the patient has been difficult at times. [employer] paraprofessional interpreter was used on 04/23 as patient is primarily Eritrean speaking, and the paraprofessional interpreter could not understand the patient. Nursing staff and medical team has been able to communicate with the patient in Filipino successfully at times but he occasionally slurs his speech/is not understandable. On 04/23 patient was found to have significant transaminitis as well as worsening renal function. Nephrology, GI consulted. A discussion was had with the patient's on 04/23 and she stated that all of the patient's symptoms (including his R leg stiffness/loss of function) were new and that he had been found down for up to 5 hours before coming to the ER. Vascular was consulted at that time and it was noted that patient had no palpable pulses, either femoral, popliteal, dorsalis pedis or post tibial. Ultrasound revealed complete occlusion of blood flow to the R leg and patient was immediately taken to the OR for R leg clot fasciotomy thrombectomy. On 04/24 patient was found to have worsening renal function with Creatinine of 4.85 and a Potassium of 7.1. R int jugular vascular cath was placed and patient underwent HD at that time. Labs were indicative of rhabdomyolysis. Right above knee amputation with wound vac was performed on 04/24. Received one blood transfusion following the procedure. S/P closure of amputation site on 04/27 with drain removal 04/29. Getting HD MWF. Unclear clinical course ahead. Palliative care consulted 04/29 to further elucidate goals of care, appreciate recommendations. PermCath placed 05/01 for continued outpatient dialysis. Case management working on rehab discharge planning, [facility] Critical Care signed off 04/28. Nephrology managing dialysis, appreciate assistance in this patient's care. 05/05: Urology consulted 05/04 to assist with urinary retention - recommending Montalvo catheter for 7 days, Flomax before another trial without the catheter. Follow up with urology as outpatient 05/06: no changes in management, pt stable 05/07: bloody stool this morning with subsequent BPBPR. Stool studies including C -diff sent. Will consult GI at this time. Hold heparin, pt NPO, MIVF started, Protonix 40mg IV BID. Has permcath access. Serial H&H and coag profile. Hbg dropped to 6.9 and he received 2 units PRBC with appropriate response 05/08: Seen after colonoscopy and stable. Op report with findings of ulcers in the colon with biopsies taken GI ordering CT abdomen/pelvis to rule out ischemic event 05/09: Patient feeling well. H&H stable. CTA showing bilaterally occluded internal iliac arteries and global atherosclerosis. Vascular recommended keeping stitches in. Nephrology reduced dialysis to MF (2x weekly). Palliative following. 05/10: Heparin was restarted on 05/09 with no acute bleeding to date. We spoke with Vascular regarding the CTA findings and we'll manage medically for now with ASA and a statin. * Neuro: intermittent AMS resolved, Dementia * Initially presented with altered mental status, confusion. Has resolved and patient oriented 3 with no signs of delirium * No previous CVA history * Lipid profile showing triglycerides 200, cholesterol 155, LDL 102, HDL 12.6, A1c 17.7 * Rehab at discharge * CV: Hx CABG remotely, Intermittent bradycardia, HTN, critical limb ischemia s/ p amputation * Echo 04/24 showing EF 60-65%, normal LV size, no noted wall motion abnormalities * Vascular surgery performed R leg clot fasciotomy thrombectomy on 04/23. * Right above knee amputation with wound vac was performed on 04/24. * Amputation closure performed 04/26 * Increased Amlodipine to 10mg as patient was persistently hypertensive. * CTA showing bilaterally occluded internal iliac arteries and global atherosclerosis - will manage medically with Lipitor and an aspirin * GI: acute transaminitis, difficulty swallowing, hyperammonemia, acute lower GI bleed * LFTs were normal admission, then became significantly elevated most likely secondary to rhabdomyolysis. Returned to baseline following IV fluids and amputation of the right leg above the knee. * US Liver on 04/24 showed findings consistent with hepatic steatosis versus medical liver disease. Cholelithiasis noted. * Hepatitis panel negative. * Patient with bloody BM on 05/07 - colonoscopy on 05/08 showing ulcers in the colon - possibly Crohn's disease, bx pending * CT abdomen/pelvis 05/08: atherosclerotic change throughout, no aneurysm, occlusion of bilateral internal iliac arteries * Starting Heparin BID on 05/09 due to vaso-occlusive episode that lead to his amputation. H&H has been stable and will monitor closely * FEN/RENAL: acute renal failure complicated by chronic kidney disease, hypoalbuminemia, hypocalcemia, rhabdomyolysis * Creatinine elevated on admission at 3.42. Worsened after patient went into rhabdo. Nephrology was consult and patient has been on hemodialysis MWF since - spaced to on 05/07 * Renal US normal * Nephrology consulted, appreciate recommendations * Will likely need HD for 6 weeks, nephrology will set this up as outpt * CK normalized 05/05 * Attempted to DCd Montalvo on 05/02 - required straight cath over next 24 hours due to inability to urinate - started Flomax on 05/03. Still urinary retention on 05/04 so reordered Montalvo. * Urology consulted and recommending 7 days with Montalvo before another trial ( trial due 05/11/2017). Continue Flomax and follow up with urology as outpatient * ID: UTI complicated by male gender, race, urethral injury, Leukocytosis 04/29 * Found to have UTI on admission with cultures growing Klebsiella, group B strep and was treated with Levaquin for 10 day course * Leukocytosis on admission resolved but recurred 04/29, repeat UA at that time grew Joslyn and patient was started on Diflucan on 05/03. Leukocytosis resolved as of 05/05 * Diflucan d/c'd per nephrology 05/07 (05/03-05/07) * HEME: rhabdomyolysis, acute blood loss anemia, anemia of chronic disease, acute lower GI bleed 05/07 * Goal Hgb > 7 * Nephrology started Epoetin 10,000 units with dialysis * Status post 2 units of packed red blood cells following amputation on 04/24, 1 unit on 05/01 * H/H trended after GI bleed on 05/07 - dropped to 6.9 and received 2 units PRBC 's with response to 7.8 - will continue to trend * Monitor CBC, PRBCs for Hgb <7 or sx * ENDO: Diabetes * Hyperglycemia: HHS on admission, resolved on 04/22 but insulin drip resumed on 04/24. Discontinued insulin drip and started SSI on 04/25 * A1c 17.7 * early childhood educator aide, christmas tree grower consulted * TSH wnl * Patient now cleared for regular diet, increased Levemir to 10 units BID, will continue and monitor closely * PROPH/LINES: * Heparin 5000U sq q12h, HOLD FOR ACUTE GIB 05/07 * PermCath 05/01/17 Discharge Planning Anticipate transition to longterm care facility (or SNF) with dialysis, rehab, medication administration. Case Management consulted for SNF placement MIHIR Bernard Problem List: (1) Hyperammonemia ICD Codes: E72.20 - Disorder of urea cycle metabolism, unspecified Status: Acute (2) Compartment syndrome ICD Codes: T79.A0XA - Compartment syndrome, unspecified, initial encounter Status: Acute (3) Diabetes mellitus ICD Codes: E11.9 - Diabetes mellitus Status: Chronic (4) Hypertension ICD Codes: I10 - Hypertension Status: Acute (5) Acute renal failure ICD Codes: N17.9 - Acute kidney failure, unspecified Status: Acute (6) Hypernatremia ICD Codes: E87.0 - Hyperosmolality and hypernatremia Status: Resolved (7) Hyperkalemia ICD Codes: E87.5 - Hyperkalemia Status: Acute (8) UTI (urinary tract infection) ICD Codes: N39.0 - Urinary tract infection, site not specified Status: Acute (9) Transaminitis ICD Codes: R74.0 - Nonspecific elevation of levels of transaminase and lactic acid dehydrogenase [LDH] Problem Qualifiers (1) Acute renal failure: Qualified Codes: N17.9 - Acute kidney failure, unspecified (2) UTI (urinary tract infection): Qualified Codes: N10 - Acute pyelonephritis Mango Cheung MD R1 May 10, 2017 10:13
[2017-05-10] MEDS: HEPARIN SODIUM - SQ 10,000 UNITS/ML VIAL SQ SCH ×2 (11:42→20:56)
[2017-05-10 12:00] VITALS: BP 144/65; PULSE 87; RESP 18; TEMP 98.2; O2SAT 100
--- NOTE | 2017-05-10 13:11 | HHI.GIFU ---
Subjective Remarks Sitting up in chair watching TV Family member present Patient denies any nausea vomiting diarrhea or constipation Afebrile States appetite good (Nadira Sánchez) Objective Vitals I&O Vital Signs Date Time Temp Pulse Resp B/P (MAP) Pulse Ox O2 Delivery O2 Flow Rate FiO2 05/10/17 08:00 98.6 88 18 149/70 (96) 98 05/10/17 00:00 98.5 87 18 156/70 (98) 100 05/09/17 20:00 98.2 88 18 131/58 (82) 99 05/09/17 16:00 97.7 91 14 133/61 (85) 100 05/09/17 13:30 97.9 80 15 173/74 (107) 97 I/O 05/09/17 05/09/17 05/09/17 05/10/17 05/10/17 05/10/17 07:00 15:00 23:00 07:00 15:00 23:00 Intake Total 240 ml 480 ml Output Total 1300 ml 700 ml 750 ml Balance -1300 ml -460 ml -270 ml Intake Oral 240 ml 480 ml Output Urine Total 1300 ml 700 ml 750 ml # Bowel Movements 1 0 Laboratory Laboratory Tests Test 05/09/17 19:01 05/10/17 06:31 Hemoglobin 8.8 8.9 Hematocrit 26.3 25.7 Prothrombin Time 10.1 Prothromb Time International Ratio 1.0 Activated Partial Thromboplast Time 24.0 Fibrinogen 354 D-Dimer Quantitative (PE/DVT) 13.03 White Blood Count 8.8 Red Blood Count 2.84 Mean Corpuscular Volume 90.5 Mean Corpuscular Hemoglobin 31.3 Mean Corpuscular Hemoglobin Concent 34.6 Red Cell Distribution Width 17.5 Platelet Count 318 Mean Platelet Volume 7.1 Neutrophils (%) (Auto) 73.1 Lymphocytes (%) (Auto) 14.2 Monocytes (%) (Auto) 11.1 Eosinophils (%) (Auto) 1.0 Basophils (%) (Auto) 0.6 Neutrophils # (Auto) 6.4 Lymphocytes # (Auto) 1.2 Monocytes # (Auto) 1.0 Eosinophils # (Auto) 0.1 Basophils # (Auto) 0.1 CBC Comment DIFF FINAL Differential Comment Blood Urea Nitrogen 30 Creatinine 4.23 Random Glucose 60 Total Protein 5.8 Albumin 2.2 Calcium Level 8.2 Alkaline Phosphatase 68 Aspartate Amino Transf (AST/SGOT) 20 Alanine Aminotransferase (ALT/SGPT) 12 Total Bilirubin 0.3 Sodium Level 139 Potassium Level 3.6 Chloride Level 105 Carbon Dioxide Level 24.1 Anion Gap 10 Estimat Glomerular Filtration Rate 14 Total Creatine Kinase 59 Date/Time Source Procedure Growth Status 05/03/17 12:47 Blood Peripheral Aerobic Blood Culture - Final NO GROWTH IN 5 DAYS Complete 05/03/17 12:47 Blood Peripheral Anaerobic Blood Culture - Final NO GROWTH IN 5 DAYS Complete 05/07/17 08:46 Stool Stool Stool Occult Blood (ANN) - Final HEMOCCULT POSITIVE Complete 05/04/17 16:00 Urine Clean Catch Urine Culture - Final Joslyn Albicans Complete Imaging Last Impressions Abdomen/Pelvis CT 05/08/17 0000 Signed Impressions: Service Date/Time: April 16:58 - CONCLUSION: 1. Atherosclerotic change seen throughout. No aneurysm is seen. 2. 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 Ash Salomon MD Chest X-Ray 05/03/17 0000 Signed Impressions: Service Date/Time: Wednesday, May 03, 2017 09:37 - CONCLUSION: No acute cardiopulmonary disease. Red Toro MD Catheter Placement X-Ray 05/01/17 0000 Signed Impressions: Service Date/Time: April 11:25 - CONCLUSION: Uncomplicated PermaCath placement as above. Dmitriy Kumar MD Liver Ultrasound 04/24/17 0000 Signed Impressions: Service Date/Time: April 15:02 - CONCLUSION: 1. Mild hepatomegaly with increased hepatic echogenicity likely reflecting hepatic steatosis versus medical liver disease. 2. Cholelithiasis with mildly distended gallbladder and gallbladder wall thickening which may be chronic in etiology. Further evaluation may be performed with HIDA scan if there is significant clinical concern regarding acute cholecystitis. Dmitriy Kumar MD Renal Ultrasound 04/22/17 0000 Signed Impressions: Service Date/Time: Saturday, April 22, 2017 21:27 - CONCLUSION: No obstructive uropathy or other acute abnormality. Incidentally seen benign-appearing left renal cyst. Ash Mason MD Head CT 04/21/17 0000 Signed Impressions: Service Date/Time: Friday, April 21, 2017 18:29 - CONCLUSION: Normal noncontrast head CT. Ash Mason MD Physical Exam HEENT: normocephalic; atraumatic; no jaundice. Montalvo catheter in place clear yellow urine CHEST: Essentially clear with no obvious rhonchi CARDIAC: Rhythm regular heart rate 88 ABDOMEN: Flat, Soft, nondistended, nontender; no hepatosplenomegaly; bowel sounds are present in all four quadrants. EXTREMITIES: Right AKA approximated with stitches. SKIN: Pale, Normal; no rash; no jaundice. MEDICAL RESEARCHER: Answers simple questions appropriately, (Nadira Sánchez) Assessment and Plan Plan Assessment: RECONSULT FOR RECTAL BLEEDING - BRBPR- reports of 3 episodes of rectal bleeding that began this AM. States diarrhea yesterday but no bleeding. H/H last checked at 8 this morning 8.5/25.2 stable since last transfusion on May 02. Pt reports previous colonoscopy at this facility, however no record of this and he is a poor historian. Denies nausea, vomiting, acid reflux, heartburn. Last EGD noted in chart 2008 --> Hiatal hernia. Gastric AVMs S/P cautery. Erosive gastritis - Transaminitis- LFTs WNL on admission, now markedly elevated Currently: AST-[id number] ALT-335 Alk phos-139 T bili-1. Denies history of liver issues. Denies ETOH, illicit drug use. Does not take any prescription or OTC drugs. No hypotensive episodes since admission. No recent abdominal imaging. Likely secondary to rhabdomyolysis Liver PHILIP was done as follows: US liver--> Mild hepatomegaly with increased hepatic echogenicity likely reflect hepatic steatosis vs medical liver disease. Hepatitis panel negative, MAUDE, ASMA negative, AMA <20, Celiac panel negative. D4Q-272 Ceruloplasmin-28 LFTs now WNL - DKA- ABG- pCO2-25 HCO3-11 base excess-15.2. Subq and IV insulin, hgb A1C-17.7 - Rhabdomyolysis, compartment syndrome, complete occlusion of blood supply to R leg S/P right leg clot fasciotomy thrombectomy and R AKA - CHANELL on CKD- GFR-13 - now on dialysis M,W, F 05/09/17 s/p colonoscopy found colon ulcer, poss crohn's, rectal ulcer. path pending. CTA showed occluded iliac arteries. d/w palliative care. d/w pts Mariann [phone]. pt is comfortable, no GI complaints, eating. today's labs pending 05/10/17, patient denies any further rectal bleeding, denies any nausea vomiting diarrhea or constipation, appetite good today, current hemoglobin 8.9 Plan: - await biopsies - GANESH - supportive care - notify GI of active bleeding, special attention to right red rectal bleeding - Transfuse as necessary - Monitor hemoglobin and labs Pt has been seen and examined by myself and Dr. Brown and this note is written on his behalf (Nadira Sánchez) Physician Comments Patient seen and examined Agree with above Continue with current supportive care Monitor labs Biopsies reveal probable inflammatory bowel disease probably representing Crohn' s although not confirmed I will start the patient on prednisone and Asacol If all is stable tomorrow patient may be discharged from a GI standpoint follow- up as an outpatient (Ervin Brown MD) Nadira Sánchez May 10, 2017 13:11 Ervin Brown MD May 10, 2017 16:34
--- NOTE | 2017-05-10 13:15 | HHI.PR ---
Addendum to Inpatient Note Addendum Reason: Additional Documentation Additional Information OFF SERVICE NOTE Patient is 67 year old Male with PMHx of HTN and DM presented to ED via EVAC due to 1 wk hx of decreased po intake. Patient found to be altered, hypertensive with blood glucose greater than 900, elevated anion gap of 29, beta hydroxy of 11.9. Patient admitted to management of DKA. Transitioned to SQ insulin on 04/22. On 04/23 patient was found to have significant transaminitis as well as worsening renal function. Nephrology, GI consulted. A discussion was had with the patient's on 04/23 and she stated that all of the patient's symptoms (including his R leg stiffness/loss of function) were new and that he had been found down for up to 5 hours before coming to the ER. Vascular was consulted at that time and it was noted that patient had no palpable pulses, either femoral, popliteal, dorsalis pedis or post tibial. Ultrasound revealed complete occlusion of blood flow to the R leg and patient was immediately taken to the OR for R leg clot fasciotomy thrombectomy. On 04/24 patient was found to have worsening renal function with Creatinine of 4.85 and a Potassium of 7.1. R int jugular vascular cath was placed and patient underwent HD at that time. Labs were indicative of rhabdomyolysis. Right above knee amputation with wound vac was performed on 04/24. Received one blood transfusion following the procedure. S/P closure of amputation site on 04/27 with drain removal 04/29. Started on HD MWF at 04/24 (now on HD M/F as of 05/07). Palliative care consulted 04/29 to further elucidate goals of care, appreciate recommendations. PermCath placed 05/01 for continued outpatient dialysis. Case management working on rehab discharge planning[facility] Nephrology managing dialysis. Urology consulted 05/04 to assist with urinary retention - recommending Boyer catheter for 7 days (DC boyer on 05/11), Flomax before another trial without the catheter. Follow up with urology as outpatient. On 05/07: bloody stool with subsequent BPBPR. Stool studies including C-diff sent. Hbg dropped to 6.9 and he received 2 units PRBC GI was consulted and colonoscopy on 04/28 showed ulcers throughout the colon - biopsies pending. CT abdomen showed bilaterally occluded internal iliac arteries and global atherosclerosis - vascular recommending medical management with Lipitor and ASA. Heparin was restarted on 05/09 with no acute bleeding to date. Of note, patient was treated for UTI with Levaquin as well as a fungal infection in the urine (was treated with Fluconazole from 05/03 to 05/07) Mango Cheung MD R1 May 10, 2017 13:15
[2017-05-10] MEDS: ASPIRIN 81 MG CHEW TAB CHEW SCH (15:34)
[2017-05-10 16:00] VITALS: BP 167/72; PULSE 92; RESP 17; TEMP 97.5; O2SAT 99
[2017-05-10] MEDS ORDERED: predniSONE 10 MG TAB PO ONE (16:30)
[2017-05-10] MEDS: MESALAMINE HD 800 MG DELAYED RELEASE TAB PO SCH ×2 (17:51→20:55)
[2017-05-10 20:00] VITALS: BP 147/69; PULSE 86; RESP 20; TEMP 99.3; O2SAT 97
[2017-05-10] MEDS: TAMSULOSIN HCL 0.4 MG CAP PO SCH (20:54)
[2017-05-10] MEDS: ATORVASTATIN 40 MG TAB PO SCH (20:55)
[2017-05-11] VITALS: BP 137/64; PULSE 80; RESP 20; TEMP 99.4; O2SAT 98
[2017-05-11] MEDS: INSULIN ASPART SUPPLEMENTAL SCALE SQ SCH ×6 (00:26→21:00)
[2017-05-11 04:00] VITALS: BP 145/65; PULSE 83; RESP 20; TEMP 99.2; O2SAT 98
[2017-05-11] MEDS: MESALAMINE HD 800 MG DELAYED RELEASE TAB PO SCH ×3 (05:19→21:13)
[2017-05-11 06:38] LABS: AUTOMATED NEUTROPHIL # 3.7 TH/MM3 (1.8-7.7); BASOPHIL % 0.2 % (0.0-2.0); HEMATOCRIT 25.1 % (39.0-51.0); HEMOGLOBIN 8.4 GM/DL (13.0-17.0); LYMPH % 9.4 % (9.0-44.0); LYMPHOCYTE # 0.4 TH/MM3 (1.0-4.8); MEAN CELL VOLUME 90.5 FL (80.0-100.0); MEAN CORPUSCULAR HEMOGLOBIN 30.3 PG (27.0-34.0); MEAN CORPUSCULAR HGB CONC 33.5 % (32.0-36.0); MEAN PLATELET VOLUME 7.3 FL (7.0-11.0); MONO % 6.7 % (0.0-8.0); MONOCYTE # 0.3 TH/MM3 (0-0.9); NEUT % 83.7 % (16.0-70.0); PLATELET COUNT 311 TH/MM3 (150-450); RED BLOOD COUNT 2.78 MIL/MM3 (4.50-5.90); RED CELL DISTRIBUTION WIDTH 16.6 % (11.6-17.2); WHITE BLOOD COUNT 4.4 TH/MM3 (4.0-11.0)
[2017-05-11 07:01] LABS: BICARBONATE 22.8 MEQ/L (21.0-32.0); CALCIUM 8.2 MG/DL (8.5-10.1); CREATININE 3.95 MG/DL (0.60-1.30)
[2017-05-11 08:00] VITALS: BP 143/65; PULSE 88; RESP 17; TEMP 99; O2SAT 98
[2017-05-11] MEDS: INSULIN DETEMIR 100 UNITS/ML VIAL SQ SCH ×2 (09:00→21:00)
[2017-05-11] MEDS: PANTOPRAZOLE SODIUM 40 MG VIAL IV PUSH SCH ×2 (09:17→21:12)
[2017-05-11] MEDS: ASPIRIN 81 MG CHEW TAB CHEW SCH (09:17)
[2017-05-11] MEDS: SODIUM CHLORIDE 0.9% FLUSH 10 ML FLUSH IV FLUSH SCH ×2 (09:18→21:00)
[2017-05-11] MEDS: HEPARIN SODIUM - SQ 10,000 UNITS/ML VIAL SQ SCH ×2 (09:33→21:12)
--- NOTE | 2017-05-11 11:10 | HHI.FPPN ---
Subjective Remarks Patient was seen and evaluated this morning. He appeared to be in good spirits; he has a positive outlook on his current state of health. Patient denies chest pain, heart palpitations, shortness of breath, nausea/vomiting, diarrhea and constipation. Montalvo continues to be in place; plan to remove today. Patient hesitant about discharge plan to rehab. He feels that he is able to manage at home. He is open to PT at home/home health. All questions were answered. Objective Vitals Vital Signs Date Time Temp Pulse Resp B/P (MAP) Pulse Ox O2 Delivery O2 Flow Rate FiO2 05/11/17 08:00 99.0 88 17 143/65 (91) 98 05/11/17 04:00 99.2 83 20 145/65 (91) 98 05/11/17 00:00 99.4 80 20 137/64 (88) 98 05/10/17 20:00 99.3 86 20 147/69 (95) 97 05/10/17 16:00 97.5 92 17 167/72 (103) 99 05/10/17 12:00 98.2 87 18 144/65 (91) 100 I/O 05/10/17 05/10/17 05/10/17 05/11/17 05/11/17 05/11/17 07:00 15:00 23:00 07:00 15:00 23:00 Intake Total 480 ml 640 ml Output Total 750 ml 800 ml 1200 ml Balance -270 ml -800 ml -560 ml Intake Oral 480 ml 640 ml Output Urine Total 750 ml 800 ml 1200 ml # Bowel Movements 0 Result Diagram: 05/11/17 0550 05/11/17 0550 Objective Remarks GENERAL: This is a thin male, lying in bed in no acute distress. SKIN: No rashes, ecchymoses or lesions outside of RLE as noted below. Perm cath in right chest wall with no draining or erythema noted. HEAD: Atraumatic. Normocephalic. EYES: Pupils equal round. Extraocular motions intact. CARDIOVASCULAR: Regular rate and rhythm without murmurs, gallops, or rubs. RESPIRATORY: Clear to auscultation. Breath sounds equal bilaterally. No wheezes , rales, or rhonchi. GASTROINTESTINAL: Abdomen soft, non-tender, nondistended. No hepato-splenomegaly , or palpable masses. No guarding. MUSCULOSKELETAL: RLE with [id number] amputation, site is clean with no drainage, stitches intact. No erythema or drainage noted at surgical site. Also sutures appreciated in the R inguinal area with no drainage or erythema. Skin is warm above level of amputation. LLE warm to touch, +palpated left DP pulse. : Montalvo in place with no erythema or discharge appreciated. NEUROLOGICAL: Cranial nerves grossly intact. Moving LLE and upper extremities spontaneously. Answers questions appropriately. Medications and IVs Current Medications Medications (Trade) Dose Ordered Sig/Erick Route Start Time Stop Time Status Last Admin (NS Flush) 2 ml UNSCH PRN IV FLUSH 04/21/17 20:45 (NS Flush) 2 ml BID IV FLUSH 04/21/17 21:00 05/11/17 09:18 Sodium Phosphate 15 mmol/Sodium Chloride 105 ml @ 25 mls/hr UNSCH PRN IV 04/21/17 21:15 Miscellaneous Information 1 Q361D XX 04/21/17 21:15 04/22/17 03:07 (Chlorhexidine 2% Cloth) 3 pack Taper DAILY@04 TOP 04/22/17 04:00 04/18/18 03:59 (Chlorhexidine 2% Cloth) 3 pack UNSCH PRN TOP 04/21/17 21:15 (Apresoline Inj) 10 mg Q6H PRN IV PUSH 04/21/17 21:30 04/23/17 01:05 (Zofran Inj) 4 mg Q8HR PRN IV PUSH 04/22/17 17:00 (Roxicodone) 5 mg Q4H PRN PO 04/23/17 23:30 04/28/17 16:04 (Roxicodone) 10 mg Q4H PRN PO 04/23/17 23:30 05/11/17 05:19 (Dilaudid Pf Inj) 0.2 mg Q4H PRN IV PUSH 04/23/17 23:30 04/28/17 08:49 Sodium Chloride 1,000 ml @ 0 mls/hr Q0M PRN OTHER 04/24/17 06:57 (Heparin Inj) 8,000 units UNSCH PRN IV FLUSH 04/24/17 07:00 Sodium Chloride 1,000 ml @ 200 mls/hr Q5H PRN IV 04/24/17 06:57 Sodium Chloride 1,000 ml @ 0 mls/hr Q0M PRN OTHER 04/24/17 06:57 (Mannitol Inj) 12.5 gm UNSCH PRN IV 04/24/17 07:00 Albumin Human 100 ml @ 60 mls/hr UNSCH PRN IV 04/24/17 07:00 04/24/17 09:22 (NS Flush) 5 ml UNSCH PRN IV FLUSH 04/24/17 07:00 (Heparin Inj) UNSCH PRN .XX 04/24/17 07:00 05/05/17 11:12 (Gentamicin Inj) 20 mg UNSCH PRN OTHER 04/24/17 07:00 05/05/17 11:13 (Zofran Inj) 4 mg UNSCH PRN IV PUSH 04/24/17 07:00 (Tylenol) 650 mg UNSCH PRN PO 04/24/17 07:00 05/05/17 08:21 (Benadryl) 25 mg UNSCH PRN PO 04/24/17 07:00 05/03/17 22:54 (Nitrostat Sl) 0.4 mg UNSCH PRN SL 04/24/17 07:00 (Catapres) 0.1 mg UNSCH PRN PO 04/24/17 07:00 05/02/17 23:38 (Gelfoam 12 Mm/7 Mm Top) 1 foam UNSCH PRN TOP 04/24/17 07:00 (D50w (Vial) Inj) 50 ml UNSCH PRN IV PUSH 04/24/17 10:15 (D50w (Vial) Inj) 50 ml UNSCH PRN IV PUSH 04/25/17 08:15 (Glucagon Inj) 1 mg UNSCH PRN OTHER 04/25/17 08:15 (NovoLOG SUPPLEMENTAL SCALE) 1 Q4H SQ 04/25/17 09:00 05/11/17 09:00 (Epogen Inj) 10,000 units UNSCH PRN IV PUSH 04/25/17 13:00 05/05/17 11:12 Vancomycin/Sodium Chloride 200 ml @ 200 mls/hr SUPERVISOR SHUTTLE PREPARATION IV 04/30/17 14:30 05/01/17 12:04 Cefazolin Sodium 2000 mg/Sodium Chloride 120 ml @ 240 mls/hr SUPERVISOR SHUTT[employer] PREPARATION IV 04/30/17 14:30 05/01/17 12:02 (Benadryl) 25 mg Q4H PRN PO 05/01/17 10:00 (NS Flush) UNSCH PRN IV FLUSH 05/01/17 12:00 (Heparin Inj) UNSCH PRN IV FLUSH 05/01/17 12:00 (Flomax) 0.4 mg HS PO 05/03/17 21:00 05/10/17 20:54 (Norvasc) 10 mg DAILY PO 05/04/17 09:00 05/11/17 09:17 (Levemir Inj) 10 units Q12HR SQ 05/05/17 21:00 05/11/17 09:00 (Protonix Inj) 40 mg Q12HR IV PUSH 05/07/17 09:00 05/11/17 09:17 Sodium Chloride 1,000 ml @ 110 mls/hr Q9H6M IV 05/07/17 11:00 05/09/17 02:43 (Heparin Inj) 5,000 units Q12H SQ 05/09/17 22:00 05/11/17 09:33 (Lipitor) 40 mg HS PO 05/09/17 21:00 05/10/17 20:55 (Aspirin Chew) 81 mg DAILY CHEW 05/10/17 14:00 05/11/17 09:17 (Asacol Hd Dr) 800 mg Q8HR PO 05/10/17 16:30 05/11/17 05:19 Urinary Catheter: Yes Assessment to: Remove Montalvo insert reason: Prolonged Immobilization Vascular Central Line Catheter: Yes Line: Central Venous Catheter Side: Right Location: Jugular A/P Assessment and Plan Patient is 67 year old Male with PMHx of HTN and DM presented to ED via EVAC due to 1 wk hx of decreased PO intake. Patient found to be altered, hypertensive with blood glucose greater than 900, elevated anion gap of 29, beta hydroxy of 11.9. Patient admitted to management of DKA. Transitioned to SQ insulin on 04/22. On 04/23 patient was found to have significant transaminitis as well as worsening renal function. Nephrology, GI consulted. A discussion was had with the patient's on 04/23 and she stated that all of the patient's symptoms (including his R leg stiffness/loss of function) were new and that he had been found down for up to 5 hours before coming to the ER. Vascular was consulted at that time and it was noted that patient had no palpable pulses ( femoral, popliteal, dorsalis pedis or post tibial). Ultrasound revealed complete occlusion of blood flow to the R leg and patient was immediately taken to the OR for R leg clot fasciotomy thrombectomy. On 04/24 patient was found to have worsening renal function with creatinine of 4.85 and a potassium of 7.1. R int jugular vascular cath was placed and patient underwent HD at that time. Labs were indicative of rhabdomyolysis. Right above knee amputation with wound vac was performed on 04/24. Received one blood transfusion following the procedure. S/P closure of amputation site on 04/27 with drain removal 04/29. PermCath placed 05/01 for continued outpatient dialysis. Case management working on rehab discharge planning, possibly to [facility] (if [facility] bed available) . Critical Care signed off 04/28. Nephrology managing dialysis. 05/05: Urology consulted 05/04 to assist with urinary retention - recommending Montalvo catheter for 7 days, Flomax before another trial without the catheter. Follow up with urology as outpatient. 05/06: No changes in management, pt stable. 05/07: Bloody stool this morning with subsequent BPBPR. Stool studies including C -diff sent. Will consult GI at this time. Hold heparin, pt NPO, MIVF started, Protonix 40mg IV BID. Has permcath access. Serial H&H and coag profile. Hbg dropped to 6.9 and he received 2 units PRBC with appropriate response 05/08: Seen after colonoscopy and stable. OP report with findings of ulcers in the colon with biopsies taken GI ordering CT abdomen/pelvis to rule out ischemic event. 05/09: Patient feeling well. H&H stable. CTA showing bilaterally occluded internal iliac arteries and global atherosclerosis. Vascular recommended keeping stitches in. Nephrology reduced dialysis to MF (2x weekly). Palliative following. 05/10: Heparin was restarted on 05/09 with no acute bleeding to date. We spoke with Vascular regarding the CTA findings and we'll manage medically for now with ASA and a statin. 02/13: Montalvo dc'ed. Pt stable. Would like to go home with home health. * Neuro: intermittent AMS resolved, Dementia * Initially presented with altered mental status, confusion. Has resolved and patient oriented 3 with no signs of delirium * No previous CVA history * Lipid profile showing triglycerides 200, cholesterol 155, LDL 102, HDL 12.6, A1c 17.7 * Rehab at discharge. Patient would like to consider going home with home health. * CV: Hx CABG remotely, Intermittent bradycardia, HTN, critical limb ischemia s/ p amputation * Echo 04/24 showing EF 60-65%, normal LV size, no noted wall motion abnormalities * Vascular surgery performed R leg clot fasciotomy thrombectomy on 04/23. * Right above knee amputation with wound vac was performed on 04/24. * Amputation closure performed 04/26 * Increased Amlodipine to 10mg as patient was persistently hypertensive. * CTA showing bilaterally occluded internal iliac arteries and global atherosclerosis - will manage medically with Lipitor and an aspirin * GI: acute transaminitis, difficulty swallowing, hyperammonemia, acute lower GI bleed * LFTs were normal admission, then became significantly elevated most likely secondary to rhabdomyolysis. Returned to baseline following IV fluids and amputation of the right leg above the knee. * US Liver on 04/24 showed findings consistent with hepatic steatosis versus medical liver disease. Cholelithiasis noted. * Hepatitis panel negative. * Patient with bloody BM on 05/07 - colonoscopy on 05/08 showing ulcers in the colon - possibly Crohn's disease, bx pending * CT abdomen/pelvis 05/08: atherosclerotic change throughout, no aneurysm, occlusion of bilateral internal iliac arteries * Starting Heparin BID on 05/09 due to vaso-occlusive episode that lead to his amputation. H&H has been stable and will monitor closely * FEN/RENAL: acute renal failure complicated by chronic kidney disease, hypoalbuminemia, hypocalcemia, rhabdomyolysis * Creatinine elevated on admission at 3.42. Worsened after patient went into rhabdo. Nephrology was consult and patient has been on hemodialysis MWF since - spaced to on 05/07. * Renal US normal. * Nephrology consulted, appreciate recommendations. * Will likely need HD for 6 weeks, nephrology will set this up as outpt * CK normalized 05/05 * Attempted to DCd Montalvo on 05/02 - required straight cath over next 24 hours due to inability to urinate - started Flomax on 05/03. Still urinary retention on 05/04 so reordered Montalvo. * Urology consulted and recommending 7 days with Montalvo before another trial ( trial due 05/11/2017). Continue Flomax and follow up with urology as outpatient. * ID: UTI complicated by male gender, race, urethral injury. Leukocytosis 04/29. * Found to have UTI on admission with cultures growing Klebsiella, group B strep and was treated with Levaquin for 10 day course * Leukocytosis on admission resolved but recurred 04/29, repeat UA at that time grew Joslyn and patient was started on Diflucan on 05/03. Leukocytosis resolved as of 05/05 * Diflucan d/c'd per nephrology 05/07 (05/03-05/07). * HEME: rhabdomyolysis, acute blood loss anemia, anemia of chronic disease, acute lower GI bleed 05/07 * Goal Hgb > 7 * Nephrology started Epoetin 10,000 units with dialysis * Status post 2 units of packed red blood cells following amputation on 04/24, 1 unit on 05/01 * H/H trended after GI bleed on 05/07 - dropped to 6.9 and received 2 units PRBC 's with response to 7.8 - will continue to trend * Monitor CBC, PRBCs for Hgb <7 or sx * ENDO: Diabetes * Hyperglycemia: HHS on admission, resolved on 04/22 but insulin drip resumed on 04/24. Discontinued insulin drip and started SSI on 04/25 * A1c 17.7 * visual educator, luster applicator consulted * TSH wnl * Patient now cleared for regular diet, increased Levemir to 10 units BID, will continue and monitor closely. * PROPH/LINES: * Heparin 5000U sq q12h, HOLD FOR ACUTE GIB 05/07 * PermCath 05/01/17. Problem List: (1) Hyperammonemia ICD Codes: E72.20 - Disorder of urea cycle metabolism, unspecified Status: Acute (2) Compartment syndrome ICD Codes: T79.A0XA - Compartment syndrome, unspecified, initial encounter Status: Acute (3) Diabetes mellitus ICD Codes: E11.9 - Diabetes mellitus Status: Chronic (4) Hypertension ICD Codes: I10 - Hypertension Status: Acute (5) Acute renal failure ICD Codes: N17.9 - Acute kidney failure, unspecified Status: Acute (6) Hypernatremia ICD Codes: E87.0 - Hyperosmolality and hypernatremia Status: Resolved (7) Hyperkalemia ICD Codes: E87.5 - Hyperkalemia Status: Acute (8) UTI (urinary tract infection) ICD Codes: N39.0 - Urinary tract infection, site not specified Status: Acute (9) Transaminitis ICD Codes: R74.0 - Nonspecific elevation of levels of transaminase and lactic acid dehydrogenase [LDH] Problem Qualifiers (1) Acute renal failure: Qualified Codes: N17.9 - Acute kidney failure, unspecified (2) UTI (urinary tract infection): Qualified Codes: N10 - Acute pyelonephritis Vaishali Barton MD R1 May 11, 2017 11:10
[2017-05-11 12:00] VITALS: BP 147/65; PULSE 93; RESP 18; TEMP 98.8; O2SAT 98
--- NOTE | 2017-05-11 12:10 | HHI.GIFU ---
Subjective Remarks pt resting in bed, in NAD. No bleeding per nursing staff. Eating. (Kandi Ríos) Objective Vitals I&O Vital Signs Date Time Temp Pulse Resp B/P (MAP) Pulse Ox O2 Delivery O2 Flow Rate FiO2 05/11/17 08:00 99.0 88 17 143/65 (91) 98 05/11/17 04:00 99.2 83 20 145/65 (91) 98 05/11/17 00:00 99.4 80 20 137/64 (88) 98 05/10/17 20:00 99.3 86 20 147/69 (95) 97 05/10/17 16:00 97.5 92 17 167/72 (103) 99 I/O 05/10/17 05/10/17 05/10/17 05/11/17 05/11/17 05/11/17 07:00 15:00 23:00 07:00 15:00 23:00 Intake Total 480 ml 640 ml Output Total 750 ml 800 ml 1200 ml Balance -270 ml -800 ml -560 ml Intake Oral 480 ml 640 ml Output Urine Total 750 ml 800 ml 1200 ml # Bowel Movements 0 Laboratory Laboratory Tests Test 05/11/17 05:50 White Blood Count 4.4 Red Blood Count 2.78 Hemoglobin 8.4 Hematocrit 25.1 Mean Corpuscular Volume 90.5 Mean Corpuscular Hemoglobin 30.3 Mean Corpuscular Hemoglobin Concent 33.5 Red Cell Distribution Width 16.6 Platelet Count 311 Mean Platelet Volume 7.3 Neutrophils (%) (Auto) 83.7 Lymphocytes (%) (Auto) 9.4 Monocytes (%) (Auto) 6.7 Eosinophils (%) (Auto) 0.0 Basophils (%) (Auto) 0.2 Neutrophils # (Auto) 3.7 Lymphocytes # (Auto) 0.4 Monocytes # (Auto) 0.3 Eosinophils # (Auto) 0.0 Basophils # (Auto) 0.0 CBC Comment DIFF FINAL Differential Comment Blood Urea Nitrogen 36 Creatinine 3.95 Random Glucose 153 Calcium Level 8.2 Sodium Level 135 Potassium Level 4.7 Chloride Level 103 Carbon Dioxide Level 22.8 Anion Gap 9 Estimat Glomerular Filtration Rate 15 Date/Time Source Procedure Growth Status 05/03/17 12:47 Blood Peripheral Aerobic Blood Culture - Final NO GROWTH IN 5 DAYS Complete 05/03/17 12:47 Blood Peripheral Anaerobic Blood Culture - Final NO GROWTH IN 5 DAYS Complete 05/07/17 08:46 Stool Stool Stool Occult Blood (ANN) - Final HEMOCCULT POSITIVE Complete 05/04/17 16:00 Urine Clean Catch Urine Culture - Final Joslyn Albicans Complete Imaging Last Impressions Abdomen/Pelvis CT 05/08/17 0000 Signed Impressions: Service Date/Time: April 16:58 - CONCLUSION: 1. Atherosclerotic change seen throughout. No aneurysm is seen. 2. 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 Ash Salomon MD Chest X-Ray 05/03/17 0000 Signed Impressions: Service Date/Time: Wednesday, May 03, 2017 09:37 - CONCLUSION: No acute cardiopulmonary disease. Red Toro MD Catheter Placement X-Ray 05/01/17 0000 Signed Impressions: Service Date/Time: April 11:25 - CONCLUSION: Uncomplicated PermaCath placement as above. Dmitriy Kumar MD Liver Ultrasound 04/24/17 0000 Signed Impressions: Service Date/Time: April 15:02 - CONCLUSION: 1. Mild hepatomegaly with increased hepatic echogenicity likely reflecting hepatic steatosis versus medical liver disease. 2. Cholelithiasis with mildly distended gallbladder and gallbladder wall thickening which may be chronic in etiology. Further evaluation may be performed with HIDA scan if there is significant clinical concern regarding acute cholecystitis. Dmitriy Kumar MD Renal Ultrasound 04/22/17 0000 Signed Impressions: Service Date/Time: Saturday, April 22, 2017 21:27 - CONCLUSION: No obstructive uropathy or other acute abnormality. Incidentally seen benign-appearing left renal cyst. Ash Mason MD Head CT 04/21/17 0000 Signed Impressions: Service Date/Time: Friday, April 21, 2017 18:29 - CONCLUSION: Normal noncontrast head CT. Ash Mason MD Physical Exam HEENT: normocephalic; atraumatic; no jaundice. CHEST:CTA CARDIAC: RRR ABDOMEN: Soft, nondistended, nontender; no hepatosplenomegaly; bowel sounds are present in all four quadrants. EXTREMITIES: Right AKA approximated with stitches. SKIN: Normal; no rash; no jaundice. CIPHER EXPERT: Answers simple questions appropriately, pleasantly and mildly confused (Kandi Ríos) Assessment and Plan Plan Assessment: RECONSULT FOR RECTAL BLEEDING - BRBPR- reports of 3 episodes of rectal bleeding that began this AM. States diarrhea yesterday but no bleeding. H/H last checked at 8 this morning 8.5/25.2 stable since last transfusion on May 02. Pt reports previous colonoscopy at this facility, however no record of this and he is a poor historian. Denies nausea, vomiting, acid reflux, heartburn. Last EGD noted in chart 2008 --> Hiatal hernia. Gastric AVMs S/P cautery. Erosive gastritis - Transaminitis- LFTs WNL on admission, now markedly elevated Currently: [id number] ALT-335 Alk phos-139 T bili-1. Denies history of liver issues. Denies ETOH, illicit drug use. Does not take any prescription or OTC drugs. No hypotensive episodes since admission. No recent abdominal imaging. Likely secondary to rhabdomyolysis Liver PHILIP was done as follows: US liver--> Mild hepatomegaly with increased hepatic echogenicity likely reflect hepatic steatosis vs medical liver disease. Hepatitis panel negative, MAUDE, ASMA negative, AMA <20, Celiac panel negative. [id number] Ceruloplasmin-28 LFTs now WNL - DKA- ABG- pCO2-25 HCO3-11 base excess-15.2. Subq and IV insulin, hgb A1C-17.7 - Rhabdomyolysis, compartment syndrome, complete occlusion of blood supply to R leg S/P right leg clot fasciotomy thrombectomy and R AKA - CHANELL on CKD- GFR-13 - now on dialysis M,W, F 05/09/17 s/p colonoscopy found colon ulcer, poss crohn's, rectal ulcer. path pending. CTA showed occluded iliac arteries. d/w palliative care. d/w pts Mariann [phone]. pt is comfortable, no GI complaints, eating. today's labs pending 05/10/17, patient denies any further rectal bleeding, denies any nausea vomiting diarrhea or constipation, appetite good today, current hemoglobin 8.9 05/11/17 no bleeding, tolerating diet. plan for d/c to rehab. bx ischemia vs IBD, started on asacol and prednisone Plan: - GANESH - supportive care - continue asacol and prednisone - Monitor hemoglobin and labs - ok to d/c to rehab from GI standpoint Pt has been seen and examined by myself and Dr. Brown and this note is written on his behalf (Kandi Ríos) Physician Comments Patient seen and examined Agree with above Continue with current supportive care Monitor labs Continue with prednisone and Asacol Follow-up with GI post discharge We will sign off (Ervin rBown MD) Kandi Ríos May 11, 2017 12:09 Ervin Brown MD May 11, 2017 18:18
[2017-05-11] MEDS: SODIUM CHLOR 0.9% 1000 ML INJ 1,000 ML IV SCH ×2 (13:28→21:14)
--- NOTE | 2017-05-11 13:48 | HHI.NPPN ---
Subjective History of Present Illness 67 year old with Hypertension,DKA, DM, ARF Additional Remarks Patient is alert, no SOB, mild pain in Rt. leg, eating well, not in distress. Objective Data Data Vital Signs Date Time Temp Pulse Resp B/P (MAP) Pulse Ox O2 Delivery O2 Flow Rate FiO2 05/11/17 08:00 99.0 88 17 143/65 (91) 98 05/11/17 04:00 99.2 83 20 145/65 (91) 98 05/11/17 00:00 99.4 80 20 137/64 (88) 98 05/10/17 20:00 99.3 86 20 147/69 (95) 97 05/10/17 16:00 97.5 92 17 167/72 (103) 99 -: 05/11/17 0550 05/11/17 0550 Physical Exam General Appearance: Well Nourished, No Acute Distress, Comfortable Neck Neck Exam: Neck Supple Pulmonary Resp Exam: Clear Bilaterally, Breath Sounds Equal Cardiology CV Exam: Regular, Normal Sinus Rhythm Gastrointestinal/Abdomen GI Exam: Soft, Non-Tender, Bowel Sounds Present Extremeties Extremities Exam: Moderate Edema (Rt. AKA.) Neurologic Neuro Exam: Alert, Awake Psychiatric Psych Exam: Appropriate Responses Assessment/Plan Problem List: (1) Acute renal failure ICD Codes: N17.9 - Acute kidney failure, unspecified Status: Acute Plan: Patient has chronic kidney disease and acute renal failure with rhabdomyolysis creatinine 4.53 -> 5.9 -> 7.2 -> 5.3 -> 6.3->5.09 -> 5.5 ->4.5-> 5.3->5.4->3.8- > 4.5->4.3 Monitor BMP check for signs of improvement of acute renal failure. ARF due to Rhabdo Right lower leg ischemia now status post right AKA. Creatinine is now 3.9, improving, encourage oral intake. (2) CKD (chronic kidney disease) stage 3, GFR 30-59 ml/min ICD Codes: N18.3 - Chronic kidney disease, stage 3 (moderate) Status: Chronic Plan: kidney ultrasound left renal cyst (3) Diabetes ICD Codes: E11.9 - Type 2 diabetes mellitus without complications Status: Chronic Plan: History of DKA continue to monitor (4) Hypertension ICD Codes: I10 - Hypertension Status: Acute Plan: BP stable (5) DKA (diabetic ketoacidoses) ICD Codes: E13.10 - Other specified diabetes mellitus with ketoacidosis without coma Status: Acute Plan: Resolved (6) Hypernatremia ICD Codes: E87.0 - Hyperosmolality and hypernatremia Status: Resolved Problem Qualifiers (1) Acute renal failure: Qualified Codes: N17.9 - Acute kidney failure, unspecified Halley Tubbs MD May 11, 2017 13:48
[2017-05-11 16:00] VITALS: BP 150/67; PULSE 88; RESP 18; TEMP 99.1; O2SAT 99
[2017-05-11 20:00] VITALS: BP 149/65; PULSE 88; RESP 18; TEMP 99.3; O2SAT 97
[2017-05-11] MEDS: ATORVASTATIN 40 MG TAB PO SCH (21:13)
[2017-05-11] MEDS: TAMSULOSIN HCL 0.4 MG CAP PO SCH (21:13)
[2017-05-11] MEDS: CHLORHEXIDINE GLUCONATE 2 % 1 PACK (2 CLOTHS) TOP SCH (21:14)
[2017-05-12] VITALS (8 sets, daily range): BP systolic 117–168; BP diastolic 56–84; PULSE 89–113; RESP 17–20; TEMP 99–102.1; O2SAT 93–99
[2017-05-12] MEDS: INSULIN ASPART SUPPLEMENTAL SCALE SQ SCH ×6 (00:52→21:00)
[2017-05-12] MEDS: ACETAMINOPHEN 325 MG TAB PO PRN ×2 (04:43→17:03)
[2017-05-12] MEDS: MESALAMINE HD 800 MG DELAYED RELEASE TAB PO SCH ×3 (04:43→21:41)
--- NOTE | 2017-05-12 05:45 | RADRPT ---
EXAM DATE/TIME: 05/12/2017 05:14 [place] COMPARISON: CHEST PA & LAT, May 03, 2017, 9:37. INDICATIONS : Fever, short of breath MEDICAL HISTORY : Hypertension. Cardiovascular disease. diabetic SURGICAL HISTORY : CABG. infusaport ENCOUNTER: Subsequent ACUITY: 4 - 6 days PAIN SCORE: 0/10 LOCATION: Bilateral chest FINDINGS: Right-sided dialysis catheter is stable in good position. There is mild reticulonodular parenchymal o pacity in the lung bases which may be developing infiltrates. Cardiac contours are grossly stable. CONCLUSION: Mild basilar infiltrates Ash Jiménez MD on May 12, 2017 at 5:42 Board Certified Radiologist. This report was verified electronically.
[2017-05-12] MEDS ORDERED: Vancomycin Consult Pharmacy 1 EA OTHER SCH (07:15)
[2017-05-12 08:26] LABS: AUTOMATED NEUTROPHIL # 4.4 TH/MM3 (1.8-7.7); BASOPHIL % 0.6 % (0.0-2.0); EOSINOPHIL % 0.2 % (0.0-4.0); HEMATOCRIT 25.3 % (39.0-51.0); HEMOGLOBIN 8.5 GM/DL (13.0-17.0); LYMPH % 11.4 % (9.0-44.0); LYMPHOCYTE # 0.6 TH/MM3 (1.0-4.8); MEAN CELL VOLUME 90.3 FL (80.0-100.0); MEAN CORPUSCULAR HEMOGLOBIN 30.3 PG (27.0-34.0); MEAN CORPUSCULAR HGB CONC 33.5 % (32.0-36.0); MEAN PLATELET VOLUME 7.2 FL (7.0-11.0); MONO % 9.4 % (0.0-8.0); MONOCYTE # 0.5 TH/MM3 (0-0.9); NEUT % 78.4 % (16.0-70.0); PLATELET COUNT 349 TH/MM3 (150-450); RED CELL DISTRIBUTION WIDTH 16.8 % (11.6-17.2); WHITE BLOOD COUNT 5.6 TH/MM3 (4.0-11.0)
[2017-05-12 08:48] LABS: BICARBONATE 24.7 MEQ/L (21.0-32.0); CALCIUM 8.1 MG/DL (8.5-10.1); CREATININE 4.06 MG/DL (0.60-1.30)
[2017-05-12] MEDS: HEPARIN SODIUM - SQ 10,000 UNITS/ML VIAL SQ SCH ×2 (08:59→21:41)
[2017-05-12] MEDS: SODIUM CHLORIDE 0.9% FLUSH 10 ML FLUSH IV FLUSH SCH ×2 (09:00→21:40)
[2017-05-12] MEDS: ASPIRIN 81 MG CHEW TAB CHEW SCH (09:00)
[2017-05-12] MEDS: PANTOPRAZOLE SODIUM 40 MG VIAL IV PUSH SCH ×2 (09:00→21:41)
[2017-05-12] MEDS: INSULIN DETEMIR 100 UNITS/ML VIAL SQ SCH ×2 (09:01→21:00)
[2017-05-12] MEDS: SODIUM CHLOR 0.9% 1000 ML INJ 1,000 ML IV SCH ×3 (10:31→21:55)
[2017-05-12] MEDS: AZITHROMYCIN INJ 500 MG in SODIUM CHLOR 0.9% 250 ML INJ 250 ML IV SCH (10:31)
[2017-05-12] MEDS: PIPERACIL-TAZO 2.25 GM PREMIX 50 ML IV SCH ×2 (11:35→17:03)
[2017-05-12] MEDS ORDERED: VANCOMYCIN INJ 1,250 MG in SODIUM CHLOR 0.9% 250 ML INJ 250 ML IV ONE (13:00)
--- NOTE | 2017-05-12 15:22 | HHI.FPPN ---
Subjective Remarks Patient was seen and evaluated this morning. Despite spiking a fever (Tmax 102.1 ) overnight, he continues to be in good spirits. Patient reports having more energy after eating breakfast. He denies chest pain, heart palpitations, shortness of breath, nausea/vomiting, diarrhea and constipation. Montalvo catheter was removed around 5 a.m. Patient reports good urine output since removal; confirmed by nurse. All questions were answered. Objective Vitals Vital Signs Date Time Temp Pulse Resp B/P (MAP) Pulse Ox O2 Delivery O2 Flow Rate FiO2 05/12/17 12:00 99.8 102 18 150/69 (96) 93 05/12/17 08:00 99.1 89 18 126/61 (82) 96 05/12/17 06:17 100.0 95 17 117/56 (76) 95 05/12/17 04:00 102.1 113 20 168/84 (112) 96 05/12/17 00:00 101.0 98 20 152/68 (96) 99 05/11/17 20:00 99.3 88 18 149/65 (93) 97 05/11/17 16:00 99.1 88 18 150/67 (94) 99 I/O 05/11/17 05/11/17 05/11/17 05/12/17 05/12/17 05/12/17 06:59 14:59 22:59 06:59 14:59 22:59 Intake Total 640 ml 680 ml Output Total 1200 ml 1000 ml 1300 ml Balance -560 ml -1000 ml -620 ml Intake Oral 640 ml 680 ml Output Urine Total 1200 ml 1000 ml 1300 ml # Bowel Movements 1 1 Result Diagram: 05/12/17 0749 05/12/17 0749 Imaging Last 72 hours Impressions Chest X-Ray 05/12/17 0000 Signed Impressions: Service Date/Time: Friday, May 12, 2017 05:14 - CONCLUSION: Mild basilar infiltrates Ash Jiménez MD Objective Remarks GENERAL: This is a thin male, lying in bed in no acute distress. SKIN: No rashes, ecchymoses or lesions outside of RLE as noted below. Perm cath in right chest wall with no erythema or drainage noted. HEAD: Atraumatic. Normocephalic. EYES: Pupils equal round. Extraocular motions intact. CARDIOVASCULAR: Regular rate and rhythm without murmurs, gallops, or rubs. RESPIRATORY: Mildly coarse breath sounds noted in right middle and lower lung kay. GASTROINTESTINAL: Abdomen soft, non-tender, nondistended. No hepato-splenomegaly , or palpable masses. No guarding. MUSCULOSKELETAL: RLE with [id number] amputation, site is clean with no drainage, stitches intact. No erythema or drainage noted at surgical site. Also sutures appreciated in the R inguinal area with no drainage or erythema. Skin is warm above level of amputation. LLE warm to touch. NEUROLOGICAL: Cranial nerves grossly intact. Moving LLE and upper extremities spontaneously. Answers questions appropriately. Medications and IVs Current Medications Medications (Trade) Dose Ordered Sig/Erick Route Start Time Stop Time Status Last Admin (NS Flush) 2 ml UNSCH PRN IV FLUSH 04/21/17 20:45 (NS Flush) 2 ml BID IV FLUSH 04/21/17 21:00 05/12/17 09:00 Sodium Phosphate 15 mmol/Sodium Chloride 105 ml @ 25 mls/hr UNSCH PRN IV 04/21/17 21:15 Miscellaneous Information 1 Q361D XX 04/21/17 21:15 04/22/17 03:07 (Chlorhexidine 2% Cloth) 3 pack Taper DAILY@04 TOP 04/22/17 04:00 04/18/18 03:59 (Chlorhexidine 2% Cloth) 3 pack UNSCH PRN TOP 04/21/17 21:15 (Apresoline Inj) 10 mg Q6H PRN IV PUSH 04/21/17 21:30 04/23/17 01:05 (Zofran Inj) 4 mg Q8HR PRN IV PUSH 04/22/17 17:00 (Roxicodone) 5 mg Q4H PRN PO 04/23/17 23:30 04/28/17 16:04 (Roxicodone) 10 mg Q4H PRN PO 04/23/17 23:30 05/12/17 13:40 (Dilaudid Pf Inj) 0.2 mg Q4H PRN IV PUSH 04/23/17 23:30 04/28/17 08:49 Sodium Chloride 1,000 ml @ 0 mls/hr Q0M PRN OTHER 04/24/17 06:57 (Heparin Inj) 8,000 units UNSCH PRN IV FLUSH 04/24/17 07:00 Sodium Chloride 1,000 ml @ 200 mls/hr Q5H PRN IV 04/24/17 06:57 Sodium Chloride 1,000 ml @ 0 mls/hr Q0M PRN OTHER 04/24/17 06:57 (Mannitol Inj) 12.5 gm UNSCH PRN IV 04/24/17 07:00 Albumin Human 100 ml @ 60 mls/hr UNSCH PRN IV 04/24/17 07:00 04/24/17 09:22 (NS Flush) 5 ml UNSCH PRN IV FLUSH 04/24/17 07:00 (Heparin Inj) UNSCH PRN .XX 04/24/17 07:00 05/05/17 11:12 (Gentamicin Inj) 20 mg UNSCH PRN OTHER 04/24/17 07:00 05/05/17 11:13 (Zofran Inj) 4 mg UNSCH PRN IV PUSH 04/24/17 07:00 (Tylenol) 650 mg UNSCH PRN PO 04/24/17 07:00 05/05/17 08:21 (Benadryl) 25 mg UNSCH PRN PO 04/24/17 07:00 05/03/17 22:54 (Nitrostat Sl) 0.4 mg UNSCH PRN SL 04/24/17 07:00 (Catapres) 0.1 mg UNSCH PRN PO 04/24/17 07:00 05/02/17 23:38 (Gelfoam 12 Mm/7 Mm Top) 1 foam UNSCH PRN TOP 04/24/17 07:00 (D50w (Vial) Inj) 50 ml UNSCH PRN IV PUSH 04/24/17 10:15 (D50w (Vial) Inj) 50 ml UNSCH PRN IV PUSH 04/25/17 08:15 (Glucagon Inj) 1 mg UNSCH PRN OTHER 04/25/17 08:15 (NovoLOG SUPPLEMENTAL SCALE) 1 Q4H SQ 04/25/17 09:00 05/12/17 13:31 (Epogen Inj) 10,000 units UNSCH PRN IV PUSH 04/25/17 13:00 05/05/17 11:12 Vancomycin/Sodium Chloride 200 ml @ 200 mls/hr PATIENT ACCOUNT ANALYST IV 04/30/17 14:30 05/01/17 12:04 Cefazolin Sodium 2000 mg/Sodium Chloride 120 ml @ 240 mls/hr PATIENT ACCOUNT ANALYST IV 04/30/17 14:30 05/01/17 12:02 (Benadryl) 25 mg Q4H PRN PO 05/01/17 10:00 (NS Flush) UNSCH PRN IV FLUSH 05/01/17 12:00 (Heparin Inj) UNSCH PRN IV FLUSH 05/01/17 12:00 (Flomax) 0.4 mg HS PO 05/03/17 21:00 05/11/17 21:13 (Norvasc) 10 mg DAILY PO 05/04/17 09:00 05/12/17 09:00 (Levemir Inj) 10 units Q12HR SQ 05/05/17 21:00 05/12/17 09:01 (Protonix Inj) 40 mg Q12HR IV PUSH 05/07/17 09:00 05/12/17 09:00 Sodium Chloride 1,000 ml @ 110 mls/hr Q9H6M IV 05/07/17 11:00 05/12/17 10:31 (Heparin Inj) 5,000 units Q12H SQ 05/09/17 22:00 05/12/17 08:59 (Lipitor) 40 mg HS PO 05/09/17 21:00 05/11/17 21:13 (Aspirin Chew) 81 mg DAILY CHEW 05/10/17 14:00 05/12/17 09:00 (Asacol Hd Dr) 800 mg Q8HR PO 05/10/17 16:30 05/12/17 13:29 (Tylenol) 650 mg Q4H PRN PO 05/12/17 04:30 05/12/17 04:43 Azithromycin 500 mg/Sodium Chloride 250 ml @ 250 mls/hr Q24H IV 05/12/17 09:00 05/12/17 10:31 Piperacillin Sod/ Tazobactam Sod 50 ml @ 100 mls/hr Q8H IV 05/12/17 10:00 05/12/17 11:35 Urinary Catheter: No Vascular Central Line Catheter: Yes Line: Central Venous Catheter Side: Right Location: Jugular A/P Assessment and Plan Patient is 67 year old male with a past medical history significant of HTN and DM presented to ED via EVAC due to a one week history of decreased PO intake. Patient found to be altered, hypertensive with blood glucose greater than 900, elevated anion gap of 29, beta hydroxy of 11.9. Patient admitted for management of DKA. Transitioned to SQ insulin on 04/22. On 04/23 patient was found to have significant transaminitis as well as worsening renal function. GI and Nephrology consulted. Vascular was consulted when no pulses (femoral, popliteal, dorsalis pedis or post tibial) were palpable on right. Ultrasound revealed complete occlusion of blood flow to the right leg; patient was immediately taken to the OR for right leg clot fasciotomy thrombectomy. On 04/24 patient was found to have worsening renal function with creatinine of 4.85 and a potassium of 7.1. Right internal jugular vascular cath was placed and patient underwent hemodialysis. Patient was started on hemodialysis MWF on 04/24. Labs were indicative of rhabdomyolysis. Right above knee amputation with wound vac was performed on 04/24. Received one blood transfusion following the procedure. S /P closure of amputation site on 04/27 with drain removal 04/29. Critical Care signed off 04/28. Palliative care consulted 04/29 to further elucidate goals of care. PermCath placed 05/01 for continued outpatient dialysis. Urology consulted 05/04 to assist with urinary retention. Follow up with urology as outpatient. Patient was treated for UTI with Levaquin as well as a fungal infection in the urine (Fluconazole from 05/03 to 05/07). On hemodialysis M/F as of 05/07. On 05/07, bright red blood per rectum noted. Stool studies including C- diff sent. Hbg dropped to 6.9 and patient received 2 units PRBC GI was consulted and colonoscopy on 05/08 showed ulcers throughout the colon - biopsies pending. CT abdomen showed bilaterally occluded internal iliac arteries and global atherosclerosis - vascular recommending medical management with Lipitor and ASA. Heparin was restarted on 05/09 with no acute bleeding to date. Febrile with Tmax 102.1 on 05/12. CXR with evidence of mild bibasilar infiltrates. Montalvo removed on 05/12; patient with appropriate urine output. * Neuro: Intermittent AMS - RESOLVED; Dementia * Initially presented with altered mental status, confusion. Has resolved and patient oriented 3 with no signs of delirium. * No previous CVA history. * Triglycerides 200, cholesterol 155, LDL 102, HDL 12.6, A1c 17.7. * Rehab at discharge. Patient would like to consider going home with home health. * CV: History of CABG remotely; Intermittent bradycardia - RESOLVED; HTN; critical limb ischemia s/p amputation * Echo 04/24 showing EF 60-65%, normal LV size, no noted wall motion abnormalities. * Vascular surgery performed right leg clot fasciotomy thrombectomy on 04/23. * Right above knee amputation with wound vac was performed on 04/24. * Amputation closure performed 04/26. * Amlodipine increased to 10mg on 05/04 as patient's hypertension persisted. * CTA showing bilaterally occluded internal iliac arteries and global atherosclerosis - will manage medically with Lipitor and aspirin. * GI: Acute transaminitis - RESOLVED; difficulty swallowing - RESOLVED; hyperammonemia - RESOLVED; acute lower GI bleed - RESOLVED * LFTs were normal admission, then became significantly elevated most likely secondary to rhabdomyolysis. Returned to baseline following IV fluids and amputation of the right leg above the knee. * US Liver on 04/24 showed findings consistent with hepatic steatosis versus medical liver disease. Cholelithiasis noted. * Hepatitis panel nonreactive. * Patient with bloody bowel movement on 05/07 - colonoscopy on 05/08 showing ulcers in the colon. Pathology report reads: All of the colon biopsies show acute inflammation and features suggestive of ulceration. Substantial areas of mucosal architectural distortion are noted suggesting some degree of chronicity. The inflammatory background suggests ischemic colitis; however, Inflammatory bowel disease and chronic infectious colitis cannot be excluded from the differential diagnosis. * CT abdomen/pelvis 05/08: atherosclerotic change throughout, no aneurysm, occlusion of bilateral internal iliac arteries. * Started Heparin BID on 05/09 due to vaso-occlusive episode that lead to his amputation. H&H has been stable and will monitor closely. * FEN/RENAL: acute renal failure complicated by chronic kidney disease; urinary retention - RESOLVED; hypoalbuminemia; hypocalcemia; rhabdomyolysis - RESOLVED. * Creatinine elevated on admission at 3.42. Worsened after patient went into rhabdo. Nephrology was consult and patient has been on hemodialysis MWF since - spaced to on 05/07. * Renal US negative. * Will likely need hemodialysis for 6 weeks, nephrology will set this up as outpatient. * CK normalized 05/05. * Attempted to DC Montalvo on 05/02 - required straight cath over next 24 hours due to inability to urinate - started Flomax on 05/03. Continued urinary retention on 05/04 required reinsertion of Montalvo. * Urology consulted; recommended 7 days with Montalvo before another trial (trial due 05/11/2017). Continue Flomax and follow up with urology as outpatient. * Montalvo DC'ed on 05/11. Montalvo removed on 05/12. Appropriate urine output. * ID: UTI complicated by male gender, race, urethral injury. Leukocytosis 04/29. * Found to have UTI on admission with cultures growing Klebsiella, group B strep. Treated with Levaquin for 10 day course. * Leukocytosis on admission resolved but recurred 04/29, repeat UA at that time grew Joslyn. Patient started on Diflucan on 05/03. Leukocytosis resolved as of * Diflucan d/c'd per nephrology 05/07 (05/03-05/07). * HEME: rhabdomyolysis; acute blood loss anemia; anemia of chronic disease; acute lower GI bleed - RESOLVED. * Goal Hgb > 7. * Nephrology started Epoetin 10,000 units with dialysis. * Status post 2 units of packed red blood cells following amputation on 04/24, 1 unit on 05/01. * H/H trended after GI bleed on 05/07 - dropped to 6.9 and received 2 units PRBC 's with response to 7.8 - will continue to trend. * Monitor CBC, PRBCs for Hgb <7 or symptoms. * ENDO: Diabetes * Hyperglycemia: HHS on admission, resolved on 04/22 but insulin drip resumed on 04/24. Discontinued insulin drip and started SSI on 04/25. * A1c 17.7. * certified lactation educator, traffic director consulted. * TSH wnl. * Patient now cleared for regular diet, increased Levemir to 10 units BID, will continue and monitor closely. * PROPHYLAXIS/LINES: * Heparin 5000U sq q12h. * PermCath 05/01/17. Problem List: (1) Hyperammonemia ICD Codes: E72.20 - Disorder of urea cycle metabolism, unspecified Status: Acute (2) Compartment syndrome ICD Codes: T79.A0XA - Compartment syndrome, unspecified, initial encounter Status: Acute (3) Diabetes mellitus ICD Codes: E11.9 - Diabetes mellitus Status: Chronic (4) Hypertension ICD Codes: I10 - Hypertension Status: Acute (5) Acute renal failure ICD Codes: N17.9 - Acute kidney failure, unspecified Status: Acute (6) Hypernatremia ICD Codes: E87.0 - Hyperosmolality and hypernatremia Status: Resolved (7) Hyperkalemia ICD Codes: E87.5 - Hyperkalemia Status: Acute (8) UTI (urinary tract infection) ICD Codes: N39.0 - Urinary tract infection, site not specified Status: Acute (9) Transaminitis ICD Codes: R74.0 - Nonspecific elevation of levels of transaminase and lactic acid dehydrogenase [LDH] Problem Qualifiers (1) Acute renal failure: Qualified Codes: N17.9 - Acute kidney failure, unspecified (2) UTI (urinary tract infection): Qualified Codes: N10 - Acute pyelonephritis Vaishali Barton MD R1 May 12, 2017 15:21
--- NOTE | 2017-05-12 15:39 | HHI.NPPN ---
Subjective History of Present Illness 67 year old with Hypertension,DKA, DM, ARF Additional Remarks Patient is alert, no SOB, mild pain in Rt. leg, eating well, not in distress. Objective Data Data 05/12/17 05/13/17 19:00 07:00 Intake Total 450 ml Balance 450 ml Intake Oral 450 ml # Voids 4 # Bowel Movements 1 Vital Signs Date Time Temp Pulse Resp B/P (MAP) Pulse Ox O2 Delivery O2 Flow Rate FiO2 05/12/17 12:00 99.8 102 18 150/69 (96) 93 05/12/17 08:00 99.1 89 18 126/61 (82) 96 05/12/17 06:17 100.0 95 17 117/56 (76) 95 05/12/17 04:00 102.1 113 20 168/84 (112) 96 05/12/17 00:00 101.0 98 20 152/68 (96) 99 05/11/17 20:00 99.3 88 18 149/65 (93) 97 05/11/17 16:00 99.1 88 18 150/67 (94) 99 -: 05/12/17 0749 05/12/17 0749 Microbiology 05/12/17 Aerobic Blood Culture, Received Pending 05/12/17 Anaerobic Blood Culture, Received Pending 05/12/17 Aerobic Blood Culture, Received Pending 05/12/17 Anaerobic Blood Culture, Received Pending Physical Exam General Appearance: Well Nourished, No Acute Distress, Comfortable Neck Neck Exam: Neck Supple Pulmonary Resp Exam: Clear Bilaterally, Breath Sounds Equal Cardiology CV Exam: Regular, Normal Sinus Rhythm Gastrointestinal/Abdomen GI Exam: Soft, Non-Tender, Bowel Sounds Present Extremeties Extremities Exam: Moderate Edema (Rt. AKA.) Extremeties Remarks Rt AKA Neurologic Neuro Exam: Alert, Awake Psychiatric Psych Exam: Appropriate Responses Assessment/Plan Problem List: (1) Acute renal failure ICD Codes: N17.9 - Acute kidney failure, unspecified Status: Acute Plan: Patient has chronic kidney disease and acute renal failure with rhabdomyolysis creatinine 4.53 -> 5.9 -> 7.2 -> 5.3 -> 6.3->5.09 -> 5.5 ->4.5-> 5.3->5.4->3.8- > 4.5->4.3->.3.9-> 4.0 Monitor BMP check for signs of improvement of acute renal failure. ARF due to Rhabdo Right lower leg ischemia now status post right AKA. Creatinine is 4, about same encourage oral intake. (2) CKD (chronic kidney disease) stage 3, GFR 30-59 ml/min ICD Codes: N18.3 - Chronic kidney disease, stage 3 (moderate) Status: Chronic Plan: kidney ultrasound left renal cyst (3) Diabetes ICD Codes: E11.9 - Type 2 diabetes mellitus without complications Status: Chronic Plan: History of DKA continue to monitor (4) Hypertension ICD Codes: I10 - Hypertension Status: Acute Plan: BP stable (5) DKA (diabetic ketoacidoses) ICD Codes: E13.10 - Other specified diabetes mellitus with ketoacidosis without coma Status: Acute Plan: Resolved (6) Hypernatremia ICD Codes: E87.0 - Hyperosmolality and hypernatremia Status: Resolved Problem Qualifiers (1) Acute renal failure: Qualified Codes: N17.9 - Acute kidney failure, unspecified Natacha Suarez MD May 12, 2017 15:39
[2017-05-12] MEDS: ATORVASTATIN 40 MG TAB PO SCH (21:41)
[2017-05-12] MEDS: TAMSULOSIN HCL 0.4 MG CAP PO SCH (21:41)
[2017-05-13] MEDS: INSULIN ASPART SUPPLEMENTAL SCALE SQ SCH ×6 (01:00→21:00)
[2017-05-13] MEDS: CHLORHEXIDINE GLUCONATE 2 % 1 PACK (2 CLOTHS) TOP SCH (01:54)
[2017-05-13] MEDS: PIPERACIL-TAZO 2.25 GM PREMIX 50 ML IV SCH ×3 (02:00→18:28)
[2017-05-13] MEDS: MESALAMINE HD 800 MG DELAYED RELEASE TAB PO SCH ×3 (04:56→22:00)
[2017-05-13 06:57] LABS: AUTOMATED NEUTROPHIL # 3.7 TH/MM3 (1.8-7.7); EOSINOPHIL % 0.3 % (0.0-4.0); HEMATOCRIT 27.3 % (39.0-51.0); HEMOGLOBIN 9.2 GM/DL (13.0-17.0); LYMPH % 15.1 % (9.0-44.0); LYMPHOCYTE # 0.8 TH/MM3 (1.0-4.8); MEAN CELL VOLUME 89.8 FL (80.0-100.0); MEAN CORPUSCULAR HEMOGLOBIN 30.2 PG (27.0-34.0); MEAN CORPUSCULAR HGB CONC 33.6 % (32.0-36.0); MEAN PLATELET VOLUME 7.5 FL (7.0-11.0); MONO % 9.9 % (0.0-8.0); MONOCYTE # 0.5 TH/MM3 (0-0.9); NEUT % 73.7 % (16.0-70.0); PLATELET COUNT 373 TH/MM3 (150-450); RED BLOOD COUNT 3.04 MIL/MM3 (4.50-5.90); RED CELL DISTRIBUTION WIDTH 16.6 % (11.6-17.2)
[2017-05-13 07:27] LABS: CHLORIDE 106 MEQ/L (98-107); SODIUM (NA) 138 MEQ/L (136-145)
[2017-05-13 07:50] LABS: ALBUMIN 2.3 GM/DL (3.4-5.0); AST (GOT) 19 U/L (15-37); BICARBONATE 22.3 MEQ/L (21.0-32.0); BLOOD UREA NITROGEN 47 MG/DL (7-18); CREATININE 4.22 MG/DL (0.60-1.30); GLOMERULAR FILTRATION RATE 14 ML/MIN (>89); GLUCOSE,RANDOM 116 MG/DL (74-106)
[2017-05-13 07:54] VITALS: BP 160/67; PULSE 97; RESP 18; TEMP 101.1; O2SAT 95
[2017-05-13 07:55] LABS: ALKALINE PHOSPHATASE 65 U/L (45-117); ALT (GPT) 19 U/L (12-78); PHOSPHORUS 3.5 MG/DL (2.5-4.9); TOTAL BILIRUBIN ADULT 0.3 MG/DL (0.2-1.0); TOTAL PROTEIN 6.2 GM/DL (6.4-8.2)
[2017-05-13] MEDS: INSULIN DETEMIR 100 UNITS/ML VIAL SQ SCH ×2 (09:00→21:00)
[2017-05-13] MEDS: AZITHROMYCIN INJ 500 MG in SODIUM CHLOR 0.9% 250 ML INJ 250 ML IV SCH (09:15)
[2017-05-13] MEDS: PANTOPRAZOLE SODIUM 40 MG VIAL IV PUSH SCH ×2 (09:15→22:47)
[2017-05-13] MEDS: ASPIRIN 81 MG CHEW TAB CHEW SCH (09:15)
[2017-05-13] MEDS: SODIUM CHLORIDE 0.9% FLUSH 10 ML FLUSH IV FLUSH SCH ×2 (09:16→21:00)
[2017-05-13] MEDS: HEPARIN SODIUM - SQ 10,000 UNITS/ML VIAL SQ SCH ×2 (10:00→22:46)
--- NOTE | 2017-05-13 10:29 | HHI.FPPN ---
Subjective Remarks Patient was seen and evaluated this morning. Despite spiking a fever (Tmax 101.2 ) in last 24hrs, he continues to be in good spirits. Patient reports feeling well. He denies any respiratory symptoms. He denies chest pain, heart palpitations, shortness of breath, nausea/vomiting, diarrhea and constipation. All questions were answered. Objective Vitals Vital Signs Date Time Temp Pulse Resp B/P (MAP) Pulse Ox O2 Delivery O2 Flow Rate FiO2 05/13/17 07:54 101.1 97 18 160/67 (98) 95 05/13/17 05:37 18 05/12/17 23:39 99.0 91 18 146/67 (93) 98 05/12/17 23:02 Room Air 05/12/17 19:45 99.4 92 18 136/62 (86) 95 05/12/17 16:03 101.2 95 20 153/68 (96) 96 05/12/17 12:00 99.8 102 18 150/69 (96) 93 I/O 05/12/17 05/12/17 05/12/17 05/13/17 05/13/17 05/13/17 07:00 15:00 23:00 07:00 15:00 23:00 Intake Total 680 ml 450 ml 1000 ml 410 ml Output Total 1300 ml 600 ml Balance -620 ml 450 ml 1000 ml -190 ml Intake Oral 680 ml 450 ml 360 ml IV Total 1000 ml 50 ml Output Urine Total 1300 ml 600 ml # Voids 4 # Bowel Movements 1 1 1 Result Diagram: 05/13/17 0615 05/13/17 0615 Imaging Last 72 hours Impressions Chest X-Ray 05/13/17 0000 Signed Impressions: Service Date/Time: Saturday, May 13, 2017 11:43 - CONCLUSION: Left lower lung consolidation or pleural effusion, only seen posteriorly on the lateral view. Stable indistinctness of the central bronchopulmonary markings. Chris Denny MD Chest X-Ray 05/12/17 0000 Signed Impressions: Service Date/Time: Friday, May 12, 2017 05:14 - CONCLUSION: Mild basilar infiltrates Ash Jiménez MD Objective Remarks GENERAL: This is a thin male, lying in bed in no acute distress. SKIN: No rashes, ecchymoses or lesions outside of RLE as noted below. Perm cath in right chest wall with no erythema or drainage noted. HEAD: Atraumatic. Normocephalic. EYES: Pupils equal round. Extraocular motions intact. CARDIOVASCULAR: Regular rate and rhythm without murmurs, gallops, or rubs. RESPIRATORY: Coarse breath sounds/crackles noted in right middle and lower lung kay. GASTROINTESTINAL: Abdomen soft, non-tender, nondistended. No hepato-splenomegaly , or palpable masses. No guarding. MUSCULOSKELETAL: RLE with [id number] amputation, site is clean with no drainage, stitches intact. No erythema or drainage noted at surgical site. Also sutures appreciated in the R inguinal area with no drainage or erythema. Skin is warm above level of amputation. LLE warm to touch. NEUROLOGICAL: Cranial nerves grossly intact. Moving LLE and upper extremities spontaneously. Answers questions appropriately. Medications and IVs Current Medications Medications (Trade) Dose Ordered Sig/Erick Route Start Time Stop Time Status Last Admin (NS Flush) 2 ml UNSCH PRN IV FLUSH 04/21/17 20:45 (NS Flush) 2 ml BID IV FLUSH 04/21/17 21:00 05/13/17 09:16 Sodium Phosphate 15 mmol/Sodium Chloride 105 ml @ 25 mls/hr UNSCH PRN IV 04/21/17 21:15 Miscellaneous Information 1 Q361D XX 04/21/17 21:15 04/22/17 03:07 (Chlorhexidine 2% Cloth) 3 pack Taper DAILY@04 TOP 04/22/17 04:00 04/18/18 03:59 (Chlorhexidine 2% Cloth) 3 pack UNSCH PRN TOP 04/21/17 21:15 (Apresoline Inj) 10 mg Q6H PRN IV PUSH 04/21/17 21:30 04/23/17 01:05 (Zofran Inj) 4 mg Q8HR PRN IV PUSH 04/22/17 17:00 (Roxicodone) 5 mg Q4H PRN PO 04/23/17 23:30 04/28/17 16:04 (Roxicodone) 10 mg Q4H PRN PO 04/23/17 23:30 05/13/17 04:56 (Dilaudid Pf Inj) 0.2 mg Q4H PRN IV PUSH 04/23/17 23:30 04/28/17 08:49 Sodium Chloride 1,000 ml @ 0 mls/hr Q0M PRN OTHER 04/24/17 06:57 (Heparin Inj) 8,000 units UNSCH PRN IV FLUSH 04/24/17 07:00 Sodium Chloride 1,000 ml @ 200 mls/hr Q5H PRN IV 04/24/17 06:57 Sodium Chloride 1,000 ml @ 0 mls/hr Q0M PRN OTHER 04/24/17 06:57 (Mannitol Inj) 12.5 gm UNSCH PRN IV 04/24/17 07:00 Albumin Human 100 ml @ 60 mls/hr UNSCH PRN IV 04/24/17 07:00 04/24/17 09:22 (NS Flush) 5 ml UNSCH PRN IV FLUSH 04/24/17 07:00 (Heparin Inj) UNSCH PRN .XX 04/24/17 07:00 05/05/17 11:12 (Gentamicin Inj) 20 mg UNSCH PRN OTHER 04/24/17 07:00 05/05/17 11:13 (Zofran Inj) 4 mg UNSCH PRN IV PUSH 04/24/17 07:00 (Tylenol) 650 mg UNSCH PRN PO 04/24/17 07:00 05/05/17 08:21 (Benadryl) 25 mg UNSCH PRN PO 04/24/17 07:00 05/03/17 22:54 (Nitrostat Sl) 0.4 mg UNSCH PRN SL 04/24/17 07:00 (Catapres) 0.1 mg UNSCH PRN PO 04/24/17 07:00 05/02/17 23:38 (Gelfoam 12 Mm/7 Mm Top) 1 foam UNSCH PRN TOP 04/24/17 07:00 (D50w (Vial) Inj) 50 ml UNSCH PRN IV PUSH 04/25/17 08:15 (Glucagon Inj) 1 mg UNSCH PRN OTHER 04/25/17 08:15 (NovoLOG SUPPLEMENTAL SCALE) 1 Q4H SQ 04/25/17 09:00 05/13/17 13:00 (Epogen Inj) 10,000 units UNSCH PRN IV PUSH 04/25/17 13:00 05/05/17 11:12 Vancomycin/Sodium Chloride 200 ml @ 200 mls/hr BAG[place] IV 04/30/17 14:30 05/01/17 12:04 Cefazolin Sodium 2000 mg/Sodium Chloride 120 ml @ 240 mls/hr B[place] IV 04/30/17 14:30 05/01/17 12:02 (Benadryl) 25 mg Q4H PRN PO 05/01/17 10:00 (NS Flush) UNSCH PRN IV FLUSH 05/01/17 12:00 (Heparin Inj) UNSCH PRN IV FLUSH 05/01/17 12:00 (Flomax) 0.4 mg HS PO 05/03/17 21:00 05/12/17 21:41 (Norvasc) 10 mg DAILY PO 05/04/17 09:00 05/13/17 09:15 (Levemir Inj) 10 units Q12HR SQ 05/05/17 21:00 05/13/17 09:00 (Protonix Inj) 40 mg Q12HR IV PUSH 05/07/17 09:00 05/13/17 09:15 (Heparin Inj) 5,000 units Q12H SQ 05/09/17 22:00 05/13/17 10:00 (Lipitor) 40 mg HS PO 05/09/17 21:00 05/12/17 21:41 (Aspirin Chew) 81 mg DAILY CHEW 05/10/17 14:00 05/13/17 09:15 (As[address] Hd [address]) 800 mg Q8HR PO 05/10/17 16:30 05/13/17 13:47 (Tylenol) 650 mg Q4H PRN PO 05/12/17 04:30 05/12/17 17:03 Azithromycin 500 mg/Sodium Chloride 250 ml @ 250 mls/hr Q24H IV 05/12/17 09:00 05/13/17 09:15 Piperacillin Sod/ Tazobactam Sod 50 ml @ 100 mls/hr Q8H IV 05/12/17 10:00 05/13/17 10:00 Sodium Chloride 1,000 ml @ 100 mls/hr Q10H IV 05/13/17 14:15 Urinary Catheter: No Vascular Central Line Catheter: Yes Line: Central Venous Catheter Side: Right Location: Jugular A/P Assessment and Plan Patient is 67 year old male with a past medical history significant of HTN and DM presented to ED via EVAC due to a one week history of decreased PO intake. Patient found to be altered, hypertensive with blood glucose greater than 900, elevated anion gap of 29, beta hydroxy of 11.9. Patient admitted for management of DKA. Transitioned to SQ insulin on 04/22. On 04/23 patient was found to have significant transaminitis as well as worsening renal function. GI and Nephrology consulted. Vascular was consulted when no pulses (femoral, popliteal, dorsalis pedis or post tibial) were palpable on right. Ultrasound revealed complete occlusion of blood flow to the right leg; patient was immediately taken to the OR for right leg clot fasciotomy thrombectomy. On 04/24 patient was found to have worsening renal function with creatinine of 4.85 and a potassium of 7.1. Right internal jugular vascular cath was placed and patient underwent hemodialysis. Patient was started on hemodialysis MWF on 04/24. Labs were indicative of rhabdomyolysis. Right above knee amputation with wound vac was performed on 04/24. Received one blood transfusion following the procedure. S /P closure of amputation site on 04/27 with drain removal 04/29. Critical Care signed off 04/28. Palliative care consulted 04/29 to further elucidate goals of care. PermCath placed 05/01 for continued outpatient dialysis. Urology consulted 05/04 to assist with urinary retention. Follow up with urology as outpatient. Patient was treated for UTI with Levaquin as well as a fungal infection in the urine (Fluconazole from 05/03 to 05/07). On hemodialysis M/F as of 05/07. On 05/07, bright red blood per rectum noted. Stool studies including C- diff sent. Hbg dropped to 6.9 and patient received 2 units PRBC GI was consulted and colonoscopy on 05/08 showed ulcers throughout the colon - biopsies pending. CT abdomen showed bilaterally occluded internal iliac arteries and global atherosclerosis - vascular recommending medical management with Lipitor and ASA. Heparin was restarted on 05/09 with no acute bleeding to date. Febrile with Tmax 102.1 on 05/12. CXR with evidence of mild bibasilar infiltrates. Montalvo removed on 05/12; patient with appropriate urine output. Febrile with Tmax 101.1 on 05/13. CXR with evidence of left lower lung consolidation or pleural effusion, only seen on posterior lateral view. * Neuro: Intermittent AMS - RESOLVED; Dementia * Initially presented with altered mental status, confusion. Has resolved and patient oriented 3 with no signs of delirium. * No previous CVA history. * Triglycerides 200, cholesterol 155, LDL 102, HDL 12.6, A1c 17.7. * Rehab at discharge. Patient would like to consider going home with home health. * CV: History of CABG remotely; Intermittent bradycardia - RESOLVED; HTN; critical limb ischemia s/p amputation * Echo 04/24 showing EF 60-65%, normal LV size, no noted wall motion abnormalities. * Vascular surgery performed right leg clot fasciotomy thrombectomy on 04/23. * Right above knee amputation with wound vac was performed on 04/24. * Amputation closure performed 04/26. * Amlodipine increased to 10mg on 05/04 as patient's hypertension persisted. * CTA showing bilaterally occluded internal iliac arteries and global atherosclerosis - will manage medically with Lipitor and aspirin. * GI: Acute transaminitis - RESOLVED; difficulty swallowing - RESOLVED; hyperammonemia - RESOLVED; acute lower GI bleed - RESOLVED * LFTs were normal admission, then became significantly elevated most likely secondary to rhabdomyolysis. Returned to baseline following IV fluids and amputation of the right leg above the knee. * US Liver on 04/24 showed findings consistent with hepatic steatosis versus medical liver disease. Cholelithiasis noted. * Hepatitis panel nonreactive. * Patient with bloody bowel movement on 05/07 - colonoscopy on 05/08 showing ulcers in the colon. Pathology report reads: All of the colon biopsies show acute inflammation and features suggestive of ulceration. Substantial areas of mucosal architectural distortion are noted suggesting some degree of chronicity. The inflammatory background suggests ischemic colitis; however, Inflammatory bowel disease and chronic infectious colitis cannot be excluded from the differential diagnosis. * CT abdomen/pelvis 05/08: atherosclerotic change throughout, no aneurysm, occlusion of bilateral internal iliac arteries. * Started Heparin BID on 05/09 due to vaso-occlusive episode that lead to his amputation. H&H has been stable and will monitor closely. * FEN/RENAL: acute renal failure complicated by chronic kidney disease; urinary retention - RESOLVED; hypoalbuminemia; hypocalcemia; rhabdomyolysis - RESOLVED. * Creatinine elevated on admission at 3.42. Worsened after patient went into rhabdo. Nephrology was consult and patient has been on hemodialysis MWF since - spaced to on 05/07. Creatine trending up. Nephrology managing. * Renal US negative. * CK normalized 05/05. * Attempted to DC Montalvo on 05/02 - required straight cath over next 24 hours due to inability to urinate - started Flomax on 05/03. Continued urinary retention on 05/04 required reinsertion of Montalvo. * Urology consulted; recommended 7 days with Montalvo before another trial (trial due 05/11/2017). Continue Flomax and follow up with urology as outpatient. * Montalvo DC'ed on 05/11. Montalvo removed on 05/12. Appropriate urine output. * ID: UTI complicated by male gender, race, urethral injury. Leukocytosis 04/29; febrile and radiographic evidence of pneumonia. * Found to have UTI on admission with cultures growing Klebsiella, group B strep. Treated with Levaquin for 10 day course. * Leukocytosis on admission resolved but recurred 04/29, repeat UA at that time grew Joslyn. Patient started on Diflucan on 05/03. Leukocytosis resolved as of * Diflucan DCed per nephrology 05/07 (05/03-05/07). * Febrile and CXR with evidence of mild bibasilar infiltrates on 05/12. Started on Zosyn, Azithromycin and Vancomycin. * Febrile and CXR with evidence of left lower lung consolidation or pleural effusion, only seen on posterior lateral view on 05/13. Held vancomycin per nephrology. * UA negative on 05/13. * Blood culture pending. * HEME: rhabdomyolysis; acute blood loss anemia; anemia of chronic disease; acute lower GI bleed - RESOLVED. * Goal Hgb > 7. * Nephrology started Epoetin 10,000 units with dialysis. * Status post 2 units of packed red blood cells following amputation on 04/24, 1 unit on 05/01. * H/H trended after GI bleed on 05/07 - dropped to 6.9 and received 2 units PRBC 's with response to 7.8 - will continue to trend. * Monitor CBC, PRBCs for Hgb <7 or symptoms. * ENDO: Diabetes * Hyperglycemia: HHS on admission, resolved on 04/22 but insulin drip resumed on 04/24. Discontinued insulin drip and started SSI on 04/25. * A1c 17.7. * simulation educator, computer aided design operator consulted. * TSH wnl. * Patient now cleared for regular diet, increased Levemir to 10 units BID, will continue and monitor closely. * PROPHYLAXIS/LINES: * Heparin 5000U sq q12h. * PermCath 05/01/17. Problem List: (1) Hyperammonemia ICD Codes: E72.20 - Disorder of urea cycle metabolism, unspecified Status: Resolved (2) Compartment syndrome ICD Codes: T79.A0XA - Compartment syndrome, unspecified, initial encounter Status: Resolved (3) Diabetes mellitus ICD Codes: E11.9 - Diabetes mellitus Status: Chronic (4) Hypertension ICD Codes: I10 - Hypertension Status: Acute (5) Acute renal failure ICD Codes: N17.9 - Acute kidney failure, unspecified Status: Acute (6) Hypernatremia ICD Codes: E87.0 - Hyperosmolality and hypernatremia Status: Resolved (7) Hyperkalemia ICD Codes: E87.5 - Hyperkalemia Status: Acute (8) UTI (urinary tract infection) ICD Codes: N39.0 - Urinary tract infection, site not specified Status: Resolved (9) Transaminitis ICD Codes: R74.0 - Nonspecific elevation of levels of transaminase and lactic acid dehydrogenase [LDH] Status: Resolved (10) Pneumonia ICD Codes: J18.9 - Pneumonia, unspecified organism Status: Acute Problem Qualifiers (1) Acute renal failure: Qualified Codes: N17.9 - Acute kidney failure, unspecified (2) UTI (urinary tract infection): Qualified Codes: N10 - Acute pyelonephritis Vaishali Barton MD R1 May 13, 2017 10:29
[2017-05-13 11:55] VITALS: BP 152/68; PULSE 95; RESP 16; TEMP 100.5; O2SAT 95
--- NOTE | 2017-05-13 12:35 | RADRPT ---
EXAM DATE/TIME: 05/13/2017 11:43 [facility] COMPARISON: CHEST PA & LAT, May 03, 2017, 9:37. INDICATIONS : Short of breath. MEDICAL HISTORY : Hypertension. Cardiovascular disease. Diabetes mellitus type II. SURGICAL HISTORY : CABG. Coronary artery stent. INFUSAPORT ENCOUNTER: Subsequent ACUITY: 2 days PAIN SCORE: 0/10 LOCATION: Bilateral chest FINDINGS: Multilumen central catheter is stable in position. Pneumothorax. There is some mild indistinctness of the central bronchopulmonary markings, stable from prior. The heart is normal in size. Evidence of m edian sternotomy. On the lateral view, there is focal opacity blunting the posterior costophrenic ang le on the left side suggesting either a focal infiltrate or pleural effusion. No correlating opacity seen on the frontal view. CONCLUSION: Left lower lung consolidation or pleural effusion, only seen posteriorly on the lateral view. Stable indistinctness of the central bronchopulmonary markings. Chris Denny MD on May 13, 2017 at 12:32 Board Certified Radiologist. This report was verified electronically.
[2017-05-13] MEDS: SODIUM CHLOR 0.9% 1000 ML INJ 1,000 ML IV SCH ×2 (12:36→14:15)
--- NOTE | 2017-05-13 13:18 | HHI.NPPN ---
Subjective History of Present Illness 67 year old with Hypertension,DKA, DM, ARF Additional Remarks Patient is alert, no SOB, mild pain in Rt. leg, eating well, not in distress. Objective Data Data Vital Signs Date Time Temp Pulse Resp B/P (MAP) Pulse Ox O2 Delivery O2 Flow Rate FiO2 05/13/17 11:55 100.5 95 16 152/68 (96) 95 05/13/17 07:54 101.1 97 18 160/67 (98) 95 05/13/17 05:37 18 05/12/17 23:39 99.0 91 18 146/67 (93) 98 05/12/17 23:02 Room Air 05/12/17 19:45 99.4 92 18 136/62 (86) 95 05/12/17 16:03 101.2 95 20 153/68 (96) 96 -: 05/13/17 0615 05/13/17 0615 Microbiology 05/13/17 Aerobic Blood Culture, Received Pending 05/13/17 Anaerobic Blood Culture, Received Pending 05/13/17 Aerobic Blood Culture, Received Pending 05/13/17 Anaerobic Blood Culture, Received Pending Physical Exam General Appearance: Well Nourished, No Acute Distress, Comfortable Neck Neck Exam: Neck Supple Pulmonary Resp Exam: Clear Bilaterally, Breath Sounds Equal Cardiology CV Exam: Regular, Normal Sinus Rhythm Gastrointestinal/Abdomen GI Exam: Soft, Non-Tender, Bowel Sounds Present Extremeties Extremities Exam: Moderate Edema (Rt. AKA.) Extremeties Remarks Rt AKA Neurologic Neuro Exam: Alert, Awake Psychiatric Psych Exam: Appropriate Responses Assessment/Plan Problem List: (1) Acute renal failure ICD Codes: N17.9 - Acute kidney failure, unspecified Status: Acute Plan: Patient has chronic kidney disease and acute renal failure with rhabdomyolysis creatinine 4.53 -> 5.9 -> 7.2 -> 5.3 -> 6.3->5.09 -> 5.5 ->4.5-> 5.3->5.4->3.8- > 4.5->4.3->.3.9-> 4.0->4.2 Monitor BMP check for signs of improvement of acute renal failure. ARF due to Rhabdo Right lower leg ischemia now status post right AKA. Creatinine is 4.2, WORSE give IVF NS at 100 cc/hr possibility of restarting dialysis was discussed K 5.3 as well Veltassa order Discussed water intake Avoid Vancomycin if possible fever follow C/S (2) CKD (chronic kidney disease) stage 3, GFR 30-59 ml/min ICD Codes: N18.3 - Chronic kidney disease, stage 3 (moderate) Status: Chronic Plan: kidney ultrasound left renal cyst (3) Diabetes ICD Codes: E11.9 - Type 2 diabetes mellitus without complications Status: Chronic Plan: History of DKA continue to monitor (4) Hypertension ICD Codes: I10 - Hypertension Status: Acute Plan: BP stable (5) DKA (diabetic ketoacidoses) ICD Codes: E13.10 - Other specified diabetes mellitus with ketoacidosis without coma Status: Acute Plan: Resolved (6) Hypernatremia ICD Codes: E87.0 - Hyperosmolality and hypernatremia Status: Resolved Problem Qualifiers (1) Acute renal failure: Qualified Codes: N17.9 - Acute kidney failure, unspecified Natacha Suarez MD May 13, 2017 13:18
[2017-05-13] MEDS ORDERED: PATIROMER CALCIUM SORBITEX 8.4 GM PKT PO ONE (14:30)
[2017-05-13 15:42] LABS: BACTERIA, URINE RARE /hpf; BILIRUBIN, URINE NEG (NEG); BLOOD, URINE TRACE (NEG); GLUCOSE,URINE NEG (NEG); KETONE, URINE NEG (NEG); MUCUS URINE FEW /lpf (OCC); NITRITE,URINE NEG (NEG); URINE COLOR LIGHT-YELLOW (YELLW/STRAW); URINE LEUKOCYTE ESTERASE NEG (NEG)
[2017-05-13 15:59] VITALS: BP 128/60; PULSE 85; RESP 17; TEMP 99.5; O2SAT 96
[2017-05-13 20:05] VITALS: BP 138/63; PULSE 91; RESP 18; TEMP 99.3; O2SAT 95
[2017-05-13] MEDS: ATORVASTATIN 40 MG TAB PO SCH (22:45)
[2017-05-13] MEDS: TAMSULOSIN HCL 0.4 MG CAP PO SCH (22:45)
[2017-05-13 23:44] VITALS: BP 117/58; PULSE 93; RESP 18; TEMP 97.9; O2SAT 98
[2017-05-14] MEDS: SODIUM CHLOR 0.9% 1000 ML INJ 1,000 ML IV SCH ×3 (00:15→21:28)
[2017-05-14] MEDS: INSULIN ASPART SUPPLEMENTAL SCALE SQ SCH ×6 (01:00→21:00)
[2017-05-14] MEDS: CHLORHEXIDINE GLUCONATE 2 % 1 PACK (2 CLOTHS) TOP SCH (01:04)
[2017-05-14] MEDS: PIPERACIL-TAZO 2.25 GM PREMIX 50 ML IV SCH ×3 (01:04→17:48)
[2017-05-14 03:48] LABS: FACTOR IX(9) ACTIVITY 116 (60-160)
[2017-05-14] MEDS: MESALAMINE HD 800 MG DELAYED RELEASE TAB PO SCH ×3 (05:29→21:25)
[2017-05-14 05:43] LABS: AUTOMATED NEUTROPHIL # 2.8 TH/MM3 (1.8-7.7); BASOPHIL # 0.1 TH/MM3 (0-0.2); BASOPHIL % 1.3 % (0.0-2.0); EOSINOPHIL % 0.7 % (0.0-4.0); HEMATOCRIT 25.4 % (39.0-51.0); HEMOGLOBIN 8.4 GM/DL (13.0-17.0); LYMPHOCYTE # 0.9 TH/MM3 (1.0-4.8); MEAN CORPUSCULAR HGB CONC 33.3 % (32.0-36.0); MEAN PLATELET VOLUME 7.4 FL (7.0-11.0); MONO % 10.3 % (0.0-8.0); MONOCYTE # 0.4 TH/MM3 (0-0.9); NEUT % 65.7 % (16.0-70.0); PLATELET COUNT 319 TH/MM3 (150-450); RED BLOOD COUNT 2.82 MIL/MM3 (4.50-5.90); RED CELL DISTRIBUTION WIDTH 16.2 % (11.6-17.2); WHITE BLOOD COUNT 4.2 TH/MM3 (4.0-11.0)
[2017-05-14 06:08] LABS: BICARBONATE 20.4 MEQ/L (21.0-32.0); CALCIUM 7.8 MG/DL (8.5-10.1); CREATININE 4.29 MG/DL (0.60-1.30)
[2017-05-14 08:00] VITALS: BP 138/65; PULSE 90; RESP 16; TEMP 98.7; O2SAT 97
[2017-05-14] MEDS: PANTOPRAZOLE SODIUM 40 MG VIAL IV PUSH SCH ×2 (09:25→21:24)
[2017-05-14] MEDS: ASPIRIN 81 MG CHEW TAB CHEW SCH (09:25)
[2017-05-14] MEDS: HEPARIN SODIUM - SQ 10,000 UNITS/ML VIAL SQ SCH ×2 (09:25→21:25)
[2017-05-14] MEDS: AZITHROMYCIN INJ 500 MG in SODIUM CHLOR 0.9% 250 ML INJ 250 ML IV SCH (09:25)
[2017-05-14] MEDS: SODIUM CHLORIDE 0.9% FLUSH 10 ML FLUSH IV FLUSH SCH ×2 (09:25→21:26)
--- NOTE | 2017-05-14 09:39 | HHI.FPPN ---
Subjective Remarks Patient seen and examined bedside this morning. Patient has had mild fevers over the last 2 mornings. On review systems he admits that he has had increased pain on his right amputated leg. He has not noticed any change in his breathing. He denies any chest pain or dizziness. Objective Vitals Vital Signs Date Time Temp Pulse Resp B/P (MAP) Pulse Ox O2 Delivery O2 Flow Rate FiO2 05/14/17 08:00 98.7 90 16 138/65 (89) 97 05/13/17 23:52 Room Air 05/13/17 23:44 97.9 93 18 117/58 (77) 98 05/13/17 23:40 18 05/13/17 20:05 99.3 91 18 138/63 (88) 95 05/13/17 15:59 99.5 85 17 128/60 (82) 96 05/13/17 11:55 100.5 95 16 152/68 (96) 95 I/O 05/13/17 05/13/17 05/13/17 05/14/17 05/14/17 05/14/17 07:00 15:00 23:00 07:00 15:00 23:00 Intake Total 410 ml 400 ml 50 ml Output Total 600 ml Balance -190 ml 400 ml 50 ml Intake Oral 360 ml 400 ml IV Total 50 ml 50 ml Output Urine Total 600 ml # Voids 5 # Bowel Movements 1 3 Result Diagram: 05/14/17 0444 05/14/17 0444 Objective Remarks GENERAL: This is a thin male, lying in bed in no acute distress. SKIN: No rashes, ecchymoses or lesions outside of RLE as noted below. Perm cath in right chest wall with no erythema or drainage noted. HEAD: Atraumatic. Normocephalic. EYES: Pupils equal round. Extraocular motions intact. CARDIOVASCULAR: Regular rate and rhythm without murmurs, gallops, or rubs. RESPIRATORY: Coarse breath sounds/crackles noted in right middle and lower lung kay. GASTROINTESTINAL: Abdomen soft, non-tender, nondistended. No hepato-splenomegaly , or palpable masses. No guarding. MUSCULOSKELETAL: RLE with [id number] amputation, site is clean with no drainage, stitches intact. No erythema or drainage noted at surgical site. Also sutures appreciated in the R inguinal area with no drainage or erythema. Skin is warm above level of amputation. LLE warm to touch. NEUROLOGICAL: Cranial nerves grossly intact. Moving LLE and upper extremities spontaneously. Answers questions appropriately. Line: Central Venous Catheter Side: Right Location: Jugular A/P Assessment and Plan Patient is 67 year old male with a past medical history significant of HTN and DM presented to ED via EVAC due to a one week history of decreased PO intake. Patient found to be altered, hypertensive with blood glucose greater than 900, elevated anion gap of 29, beta hydroxy of 11.9. Patient admitted for management of DKA. Transitioned to SQ insulin on 04/22. On 04/23 patient was found to have significant transaminitis as well as worsening renal function. GI and Nephrology consulted. Vascular was consulted when no pulses (femoral, popliteal, dorsalis pedis or post tibial) were palpable on right. Ultrasound revealed complete occlusion of blood flow to the right leg; patient was immediately taken to the OR for right leg clot fasciotomy thrombectomy. On 04/24 patient was found to have worsening renal function with creatinine of 4.85 and a potassium of 7.1. Right internal jugular vascular cath was placed and patient underwent hemodialysis. Patient was started on hemodialysis MWF on 04/24. Labs were indicative of rhabdomyolysis. Right above knee amputation with wound vac was performed on 04/24. Received one blood transfusion following the procedure. S /P closure of amputation site on 04/27 with drain removal 04/29. Critical Care signed off 04/28. Palliative care consulted 04/29 to further elucidate goals of care. PermCath placed 05/01 for continued outpatient dialysis. Urology consulted 05/04 to assist with urinary retention. Follow up with urology as outpatient. Patient was treated for UTI with Levaquin as well as a fungal infection in the urine (Fluconazole from 05/03 to 05/07). On hemodialysis M/F as of 05/07. On 05/07, bright red blood per rectum noted. Stool studies including C- diff sent. Hbg dropped to 6.9 and patient received 2 units PRBC GI was consulted and colonoscopy on 05/08 showed ulcers throughout the colon - biopsies pending. CT abdomen showed bilaterally occluded internal iliac arteries and global atherosclerosis - vascular recommending medical management with Lipitor and ASA. Heparin was restarted on 05/09 with no acute bleeding to date. Fevers over the last 2 mornings on 05/12 and 05/13, so far afebrile and 05/14 Last temp is 100.5 on 05/13 at 12 PM * Neuro: Intermittent AMS - RESOLVED; Dementia * Initially presented with altered mental status, confusion. Has resolved and patient oriented 3 with no signs of delirium. * No previous CVA history. * Triglycerides 200, cholesterol 155, LDL 102, HDL 12.6, A1c 17.7. * Rehab at discharge. Patient would like to consider going home with home health. * CV: History of CABG remotely; Intermittent bradycardia - RESOLVED; HTN; critical limb ischemia s/p amputation * Echo 04/24 showing EF 60-65%, normal LV size, no noted wall motion abnormalities. * Vascular surgery performed right leg clot fasciotomy thrombectomy on 04/23. * Right above knee amputation with wound vac was performed on 04/24. * Amputation closure performed 04/26. * Amlodipine increased to 10mg on 05/04 as patient's hypertension persisted. * CTA showing bilaterally occluded internal iliac arteries and global atherosclerosis - will manage medically with Lipitor and aspirin. * GI: Acute transaminitis - RESOLVED; difficulty swallowing - RESOLVED; hyperammonemia - RESOLVED; acute lower GI bleed - RESOLVED * LFTs were normal admission, then became significantly elevated most likely secondary to rhabdomyolysis. Returned to baseline following IV fluids and amputation of the right leg above the knee. * US Liver on 04/24 showed findings consistent with hepatic steatosis versus medical liver disease. Cholelithiasis noted. * Hepatitis panel nonreactive. * Patient with bloody bowel movement on 05/07 - colonoscopy on 05/08 showing ulcers in the colon. Pathology report reads: All of the colon biopsies show acute inflammation and features suggestive of ulceration. Substantial areas of mucosal architectural distortion are noted suggesting some degree of chronicity. The inflammatory background suggests ischemic colitis; however, Inflammatory bowel disease and chronic infectious colitis cannot be excluded from the differential diagnosis. * CT abdomen/pelvis 05/08: atherosclerotic change throughout, no aneurysm, occlusion of bilateral internal iliac arteries. * Started Heparin BID on 05/09 due to vaso-occlusive episode that lead to his amputation. H&H has been stable and will monitor closely. * FEN/RENAL: acute renal failure complicated by chronic kidney disease; urinary retention - RESOLVED; hypoalbuminemia; hypocalcemia; rhabdomyolysis - RESOLVED. * Creatinine elevated on admission at 3.42. Worsened after patient went into rhabdo. Nephrology was consult and patient has been on hemodialysis MWF since - spaced to on 05/07. Creatine trending up. Nephrology managing. * Renal US negative. * CK normalized 05/05. * Attempted to DC Montalvo on 05/02 - required straight cath over next 24 hours due to inability to urinate - started Flomax on 05/03. Continued urinary retention on 05/04 required reinsertion of Montalvo. * Urology consulted; recommended 7 days with Montalvo before another trial (trial due 05/11/2017). Continue Flomax and follow up with urology as outpatient. * Montalvo DC'ed on 05/11. Montalvo removed on 05/12. Appropriate urine output. * ID: UTI complicated by male gender, race, urethral injury. Leukocytosis 04/29; febrile and radiographic evidence of pneumonia. * Found to have UTI on admission with cultures growing Klebsiella, group B strep. Treated with Levaquin for 10 day course. * Leukocytosis on admission resolved but recurred 04/29, repeat UA at that time grew Joslyn. Patient started on Diflucan on 05/03. Leukocytosis resolved as of * Diflucan DCed per nephrology 05/07 (05/03-05/07). * Febrile and CXR with evidence of mild bibasilar infiltrates on 05/12. Started on Zosyn, Azithromycin and Vancomycin. * Febrile and CXR with evidence of left lower lung consolidation or pleural effusion, only seen on posterior lateral view on 05/13. Held vancomycin per nephrology. * UA negative on 05/13. * Blood culture pending. Negative 1 day. Legionella and pneumococcus negative. Follow-up sputum culture. UA negative. Fevers may be due to atelectasis. Patient encouraged to use incentive spirometer * If fever recurs today we will change regimen to Zosyn 4.5 every 6 hours and linezolid 600 every 12 hours * HEME: rhabdomyolysis; acute blood loss anemia; anemia of chronic disease; acute lower GI bleed - RESOLVED. * Goal Hgb > 7. * Nephrology started Epoetin 10,000 units with dialysis. * Status post 2 units of packed red blood cells following amputation on 04/24, 1 unit on 05/01. * H/H trended after GI bleed on 05/07 - dropped to 6.9 and received 2 units PRBC 's with response to 7.8 - will continue to trend. * Monitor CBC, PRBCs for Hgb <7 or symptoms. * ENDO: Diabetes * Hyperglycemia: HHS on admission, resolved on 04/22 but insulin drip resumed on 04/24. Discontinued insulin drip and started SSI on 04/25. * A1c 17.7. * community educator, full stack software developer consulted. * TSH wnl. * Patient now cleared for regular diet, increased Levemir to 10 units BID, will continue and monitor closely. * PROPHYLAXIS/LINES: * Heparin 5000U sq q12h. * PermCath 05/01/17. Problem List: (1) Hyperammonemia ICD Codes: E72.20 - Disorder of urea cycle metabolism, unspecified Status: Resolved (2) Compartment syndrome ICD Codes: T79.A0XA - Compartment syndrome, unspecified, initial encounter Status: Resolved (3) Diabetes mellitus ICD Codes: E11.9 - Diabetes mellitus Status: Chronic (4) Hypertension ICD Codes: I10 - Hypertension Status: Acute (5) Acute renal failure ICD Codes: N17.9 - Acute kidney failure, unspecified Status: Acute (6) Hypernatremia ICD Codes: E87.0 - Hyperosmolality and hypernatremia Status: Resolved (7) Hyperkalemia ICD Codes: E87.5 - Hyperkalemia Status: Acute (8) UTI (urinary tract infection) ICD Codes: N39.0 - Urinary tract infection, site not specified Status: Resolved (9) Transaminitis ICD Codes: R74.0 - Nonspecific elevation of levels of transaminase and lactic acid dehydrogenase [LDH] Status: Resolved (10) Pneumonia ICD Codes: J18.9 - Pneumonia, unspecified organism Status: Acute Problem Qualifiers (1) Acute renal failure: Qualified Codes: N17.9 - Acute kidney failure, unspecified (2) UTI (urinary tract infection): Qualified Codes: N10 - Acute pyelonephritis Anne Ledbetter MD R2 May 14, 2017 09:39
[2017-05-14 09:52] LABS: THROMBIN TIME 16 sec (13-19)
[2017-05-14] MEDS: INSULIN DETEMIR 100 UNITS/ML VIAL SQ SCH ×2 (10:11→21:00)
[2017-05-14 11:35] LABS: ALBUMIN 2.1 GM/DL (3.4-5.0); AST (GOT) 28 U/L (15-37); BICARBONATE 19.4 MEQ/L (21.0-32.0); BLOOD UREA NITROGEN 50 MG/DL (7-18); CALCIUM 7.6 MG/DL (8.5-10.1); CHLORIDE 109 MEQ/L (98-107); CREATININE 3.96 MG/DL (0.60-1.30); GLOMERULAR FILTRATION RATE 15 ML/MIN (>89); GLUCOSE,RANDOM 138 MG/DL (74-106); SODIUM (NA) 138 MEQ/L (136-145)
[2017-05-14 11:36] LABS: ALT (GPT) 12 U/L (12-78)
[2017-05-14 11:39] LABS: ALKALINE PHOSPHATASE 58 U/L (45-117); TOTAL BILIRUBIN ADULT 0.1 MG/DL (0.2-1.0); TOTAL PROTEIN 5.6 GM/DL (6.4-8.2)
[2017-05-14 12:00] VITALS: BP 130/60; PULSE 79; RESP 16; TEMP 98.7; O2SAT 99
[2017-05-14 13:53] LABS: VWF RISTOCETIN CO FACTOR 379 (42-200)
--- NOTE | 2017-05-14 14:06 | HHI.NPPN ---
Subjective History of Present Illness 67 year old with Hypertension,DKA, DM, ARF Additional Remarks Patient is alert, no SOB, mild pain in Rt. leg, eating well, not in distress. Objective Data Data 05/14/17 05/15/17 19:00 07:00 Intake Total 5337 ml Balance 5337 ml IV Total 5337 ml Vital Signs Date Time Temp Pulse Resp B/P (MAP) Pulse Ox O2 Delivery O2 Flow Rate FiO2 05/14/17 08:00 98.7 90 16 138/65 (89) 97 05/13/17 23:52 Room Air 05/13/17 23:44 97.9 93 18 117/58 (77) 98 05/13/17 23:40 18 05/13/17 20:05 99.3 91 18 138/63 (88) 95 05/13/17 15:59 99.5 85 17 128/60 (82) 96 -: 05/14/17 0444 05/14/17 1100 Microbiology 05/13/17 Gram Stain - Final, Resulted 05/13/17 Sputum Culture - Preliminary, Resulted HEAVY GROWTH NORMAL RESPIRATORY CARRIE... 05/13/17 Legionella Antigen - Final, Complete PRESUMPTIVE NEGATIVE FOR LEGIONELLA P... 05/13/17 Streptococcus pneumoniae Antigen (M - Final, Complete PRESUMPTIVE NEGATIVE FOR STREPTOCOCCU... Physical Exam General Appearance: Well Nourished, No Acute Distress, Comfortable Neck Neck Exam: Neck Supple Pulmonary Resp Exam: Clear Bilaterally, Breath Sounds Equal Cardiology CV Exam: Regular, Normal Sinus Rhythm Gastrointestinal/Abdomen GI Exam: Soft, Non-Tender, Bowel Sounds Present Extremeties Extremities Exam: Moderate Edema (Rt. AKA.) Extremeties Remarks Rt AKA Neurologic Neuro Exam: Alert, Awake Psychiatric Psych Exam: Appropriate Responses Assessment/Plan Problem List: (1) Acute renal failure ICD Codes: N17.9 - Acute kidney failure, unspecified Status: Acute Plan: Patient has chronic kidney disease and acute renal failure with rhabdomyolysis creatinine 4.53 -> 5.9 -> 7.2 -> 5.3 -> 6.3->5.09 -> 5.5 ->4.5-> 5.3->5.4->3.8- > 4.5->4.3->.3.9-> 4.0->4.2->3.9 Monitor BMP check for signs of improvement of acute renal failure. ARF due to Rhabdo Right lower leg ischemia now status post right AKA. Creatinine is 3.9 improved with hydration IVF Discussed water intake Avoid Vancomycin if possible fever follow C/S (2) CKD (chronic kidney disease) stage 3, GFR 30-59 ml/min ICD Codes: N18.3 - Chronic kidney disease, stage 3 (moderate) Status: Chronic Plan: kidney ultrasound left renal cyst (3) Diabetes ICD Codes: E11.9 - Type 2 diabetes mellitus without complications Status: Chronic Plan: History of DKA continue to monitor (4) Hypertension ICD Codes: I10 - Hypertension Status: Acute Plan: BP stable (5) DKA (diabetic ketoacidoses) ICD Codes: E13.10 - Other specified diabetes mellitus with ketoacidosis without coma Status: Acute Plan: Resolved (6) Hypernatremia ICD Codes: E87.0 - Hyperosmolality and hypernatremia Status: Resolved Problem Qualifiers (1) Acute renal failure: Qualified Codes: N17.9 - Acute kidney failure, unspecified Natacha Suarez MD May 14, 2017 14:06
[2017-05-14 15:53] LABS: VWF AG GREATER THAN 300 % (50-217)
[2017-05-14 16:00] VITALS: BP 142/62; PULSE 79; RESP 16; TEMP 98.9; O2SAT 98
[2017-05-14 17:53] LABS: APTT VON WILL EVAL 27 sec (22-34)
[2017-05-14 19:52] LABS: COAG FACTOR VIII 156 (50-180)
[2017-05-14 20:00] VITALS: BP 144/67; PULSE 80; RESP 17; TEMP 98.6; O2SAT 97
[2017-05-14] MEDS: TAMSULOSIN HCL 0.4 MG CAP PO SCH (21:25)
[2017-05-14] MEDS: ATORVASTATIN 40 MG TAB PO SCH (21:25)
[2017-05-14 23:07] VITALS: BP 140/63; PULSE 67; RESP 18; TEMP 98.5; O2SAT 96
[2017-05-15] MEDS: INSULIN ASPART SUPPLEMENTAL SCALE SQ SCH ×6 (00:44→21:19)
[2017-05-15] MEDS: CHLORHEXIDINE GLUCONATE 2 % 1 PACK (2 CLOTHS) TOP SCH (00:47)
[2017-05-15] MEDS: PIPERACIL-TAZO 2.25 GM PREMIX 50 ML IV SCH ×3 (01:15→17:07)
[2017-05-15] MEDS: MESALAMINE HD 800 MG DELAYED RELEASE TAB PO SCH ×3 (05:48→21:19)
[2017-05-15 07:19] LABS: AUTOMATED NEUTROPHIL # 2.4 TH/MM3 (1.8-7.7); BASOPHIL # 0.1 TH/MM3 (0-0.2); BASOPHIL % 1.1 % (0.0-2.0); EOSINOPHIL # 0.1 TH/MM3 (0-0.4); EOSINOPHIL % 2.4 % (0.0-4.0); HEMATOCRIT 26.9 % (39.0-51.0); HEMOGLOBIN 8.9 GM/DL (13.0-17.0); LYMPH % 35.2 % (9.0-44.0); LYMPHOCYTE # 1.6 TH/MM3 (1.0-4.8); MEAN CELL VOLUME 90.6 FL (80.0-100.0); MEAN CORPUSCULAR HEMOGLOBIN 29.9 PG (27.0-34.0); MEAN CORPUSCULAR HGB CONC 33.1 % (32.0-36.0); MEAN PLATELET VOLUME 7.4 FL (7.0-11.0); MONOCYTE # 0.4 TH/MM3 (0-0.9); NEUT % 53.3 % (16.0-70.0); PLATELET COUNT 367 TH/MM3 (150-450); RED BLOOD COUNT 2.97 MIL/MM3 (4.50-5.90); RED CELL DISTRIBUTION WIDTH 16.5 % (11.6-17.2); WHITE BLOOD COUNT 4.6 TH/MM3 (4.0-11.0)
[2017-05-15 07:54] LABS: CALCIUM 7.6 MG/DL (8.5-10.1); CREATININE 3.8 MG/DL (0.60-1.30)
[2017-05-15 08:00] VITALS: BP 154/70; PULSE 85; RESP 18; TEMP 98.7; O2SAT 98
[2017-05-15] MEDS: AZITHROMYCIN INJ 500 MG in SODIUM CHLOR 0.9% 250 ML INJ 250 ML IV SCH (09:22)
[2017-05-15] MEDS: SODIUM CHLOR 0.9% 1000 ML INJ 1,000 ML IV SCH ×2 (09:22→16:45)
[2017-05-15] MEDS: PANTOPRAZOLE SODIUM 40 MG VIAL IV PUSH SCH ×2 (09:23→21:18)
[2017-05-15] MEDS: HEPARIN SODIUM - SQ 10,000 UNITS/ML VIAL SQ SCH ×2 (09:23→21:22)
[2017-05-15] MEDS: SODIUM CHLORIDE 0.9% FLUSH 10 ML FLUSH IV FLUSH SCH ×2 (09:23→21:18)
[2017-05-15] MEDS: ASPIRIN 81 MG CHEW TAB CHEW SCH (09:23)
[2017-05-15] MEDS: INSULIN DETEMIR 100 UNITS/ML VIAL SQ SCH ×2 (09:24→21:00)
[2017-05-15 12:00] VITALS: BP 125/58; PULSE 81; RESP 18; TEMP 98.9; O2SAT 98
--- NOTE | 2017-05-15 15:22 | HHI.NPPN ---
Subjective History of Present Illness 67 year old with Hypertension,DKA, DM, ARF Additional Remarks Patient is alert, no SOB, mild pain in Rt. leg, eating well, not in distress. Objective Data Data 05/15/17 05/16/17 19:00 07:00 Intake Total 1250 ml Balance 1250 ml IV Total 1250 ml Vital Signs Date Time Temp Pulse Resp B/P (MAP) Pulse Ox O2 Delivery O2 Flow Rate FiO2 05/15/17 12:00 98.9 81 18 125/58 (80) 98 05/15/17 10:49 18 05/15/17 09:20 98 Room Air 05/15/17 08:00 98.7 85 18 154/70 (98) 98 05/14/17 23:25 Room Air 05/14/17 23:07 98.5 67 18 140/63 (88) 96 05/14/17 20:00 98.6 80 17 144/67 (92) 97 05/14/17 16:00 98.9 79 16 142/62 (88) 98 -: 05/15/17 0614 05/15/17 0614 Physical Exam General Appearance: Well Nourished, No Acute Distress, Comfortable Neck Neck Exam: Neck Supple Pulmonary Resp Exam: Clear Bilaterally, Breath Sounds Equal Cardiology CV Exam: Regular, Normal Sinus Rhythm Gastrointestinal/Abdomen GI Exam: Soft, Non-Tender, Bowel Sounds Present Extremeties Extremities Exam: Moderate Edema (Rt. AKA.) Extremeties Remarks Rt AKA Neurologic Neuro Exam: Alert, Awake Psychiatric Psych Exam: Appropriate Responses Assessment/Plan Problem List: (1) Acute renal failure ICD Codes: N17.9 - Acute kidney failure, unspecified Status: Acute Plan: Patient has chronic kidney disease and acute renal failure with rhabdomyolysis creatinine 4.53 -> 5.9 -> 7.2 -> 5.3 -> 6.3->5.09 -> 5.5 ->4.5-> 5.3->5.4->3.8- > 4.5->4.3->.3.9-> 4.0->4.2->3.9->3.8 Monitor BMP check for signs of improvement of acute renal failure. ARF due to Rhabdo Right lower leg ischemia now status post right AKA. Creatinine is 3.8 improved with hydration on IVF Discussed water intake Avoid Vancomycin if possible fever follow C/S (2) CKD (chronic kidney disease) stage 3, GFR 30-59 ml/min ICD Codes: N18.3 - Chronic kidney disease, stage 3 (moderate) Status: Chronic Plan: kidney ultrasound left renal cyst (3) Diabetes ICD Codes: E11.9 - Type 2 diabetes mellitus without complications Status: Chronic Plan: History of DKA continue to monitor (4) Hypertension ICD Codes: I10 - Hypertension Status: Acute Plan: BP stable (5) DKA (diabetic ketoacidoses) ICD Codes: E13.10 - Other specified diabetes mellitus with ketoacidosis without coma Status: Acute Plan: Resolved (6) Hypernatremia ICD Codes: E87.0 - Hyperosmolality and hypernatremia Status: Resolved Problem Qualifiers (1) Acute renal failure: Qualified Codes: N17.9 - Acute kidney failure, unspecified Natacha Suarez MD May 15, 2017 15:22
[2017-05-15 16:00] VITALS: BP 135/61; PULSE 80; RESP 20; TEMP 98.8; O2SAT 97
--- NOTE | 2017-05-15 18:25 | HHI.FPPN ---
Subjective Remarks Patient was seen and evaluated this morning. He reports feeling well. He denies any respiratory symptoms. He denies chest pain, heart palpitations, shortness of breath, nausea/vomiting, diarrhea and constipation. All questions were answered. (Vaishali Barton MD R1) Objective Vitals Vital Signs Date Time Temp Pulse Resp B/P (MAP) Pulse Ox O2 Delivery O2 Flow Rate FiO2 05/15/17 12:00 98.9 81 18 125/58 (80) 98 05/15/17 10:49 18 05/15/17 09:20 98 Room Air 05/15/17 08:00 98.7 85 18 154/70 (98) 98 05/14/17 23:25 Room Air 05/14/17 23:07 98.5 67 18 140/63 (88) 96 05/14/17 20:00 98.6 80 17 144/67 (92) 97 I/O 05/14/17 05/14/17 05/14/17 05/15/17 05/15/17 05/15/17 07:00 15:00 23:00 07:00 15:00 23:00 Intake Total 50 ml 5937 ml 50 ml 1300 ml 586 ml Balance 50 ml 5937 ml 50 ml 1300 ml 586 ml Intake Oral 600 ml IV Total 50 ml 5337 ml 50 ml 1300 ml 586 ml # Voids 5 2 # Bowel Movements 1 1 1 (Vaishali Barton MD R1) Result Diagram: 05/15/17 0614 05/15/17 0614 Imaging Last 72 hours Impressions Chest X-Ray 05/13/17 0000 Signed Impressions: Service Date/Time: Saturday, May 13, 2017 11:43 - CONCLUSION: Left lower lung consolidation or pleural effusion, only seen posteriorly on the lateral view. Stable indistinctness of the central bronchopulmonary markings. Chris Denny MD Objective Remarks GENERAL: This is a thin male, lying in bed in no acute distress. SKIN: No rashes, ecchymoses or lesions outside of RLE as noted below. Perm cath in right chest wall with no erythema or drainage noted. HEAD: Atraumatic. Normocephalic. EYES: Pupils equal round. Extraocular motions intact. CARDIOVASCULAR: Regular rate and rhythm without murmurs, gallops, or rubs. RESPIRATORY: Coarse breath sounds/crackles noted in lower lung kay. GASTROINTESTINAL: Abdomen soft, non-tender, nondistended. No hepato-splenomegaly , or palpable masses. No guarding. MUSCULOSKELETAL: RLE with [id number] amputation, site is clean with no drainage, stitches intact. No erythema or drainage noted at surgical site. Also sutures appreciated in the right inguinal area with no drainage or erythema. Skin is warm above level of amputation. LLE warm to touch. NEUROLOGICAL: Cranial nerves grossly intact. Moving LLE and upper extremities spontaneously. Answers questions appropriately. Medications and IVs Current Medications Medications (Trade) Dose Ordered Sig/Erick Route Start Time Stop Time Status Last Admin (NS Flush) 2 ml UNSCH PRN IV FLUSH 04/21/17 20:45 (NS Flush) 2 ml BID IV FLUSH 04/21/17 21:00 05/15/17 09:23 Sodium Phosphate 15 mmol/Sodium Chloride 105 ml @ 25 mls/hr UNSCH PRN IV 04/21/17 21:15 Miscellaneous Information 1 Q361D XX 04/21/17 21:15 04/22/17 03:07 (Chlorhexidine 2% Cloth) 3 pack Taper DAILY@04 TOP 04/22/17 04:00 04/18/18 03:59 (Chlorhexidine 2% Cloth) 3 pack UNSCH PRN TOP 04/21/17 21:15 (Apresoline Inj) 10 mg Q6H PRN IV PUSH 04/21/17 21:30 04/23/17 01:05 (Zofran Inj) 4 mg Q8HR PRN IV PUSH 04/22/17 17:00 (Roxicodone) 5 mg Q4H PRN PO 04/23/17 23:30 04/28/17 16:04 (Roxicodone) 10 mg Q4H PRN PO 04/23/17 23:30 05/15/17 09:33 (Dilaudid Pf Inj) 0.2 mg Q4H PRN IV PUSH 04/23/17 23:30 04/28/17 08:49 Sodium Chloride 1,000 ml @ 0 mls/hr Q0M PRN OTHER 04/24/17 06:57 (Heparin Inj) 8,000 units UNSCH PRN IV FLUSH 04/24/17 07:00 Sodium Chloride 1,000 ml @ 200 mls/hr Q5H PRN IV 04/24/17 06:57 Sodium Chloride 1,000 ml @ 0 mls/hr Q0M PRN OTHER 04/24/17 06:57 (Mannitol Inj) 12.5 gm UNSCH PRN IV 04/24/17 07:00 Albumin Human 100 ml @ 60 mls/hr UNSCH PRN IV 04/24/17 07:00 04/24/17 09:22 (NS Flush) 5 ml UNSCH PRN IV FLUSH 04/24/17 07:00 (Heparin Inj) UNSCH PRN .XX 04/24/17 07:00 05/05/17 11:12 (Gentamicin Inj) 20 mg UNSCH PRN OTHER 04/24/17 07:00 05/05/17 11:13 (Zofran Inj) 4 mg UNSCH PRN IV PUSH 04/24/17 07:00 (Tylenol) 650 mg UNSCH PRN PO 04/24/17 07:00 05/05/17 08:21 (Benadryl) 25 mg UNSCH PRN PO 04/24/17 07:00 05/03/17 22:54 (Nitrostat Sl) 0.4 mg UNSCH PRN SL 04/24/17 07:00 (Catapres) 0.1 mg UNSCH PRN PO 04/24/17 07:00 05/02/17 23:38 (Gelfoam 12 Mm/7 Mm Top) 1 foam UNSCH PRN TOP 04/24/17 07:00 (D50w (Vial) Inj) 50 ml UNSCH PRN IV PUSH 04/25/17 08:15 (Glucagon Inj) 1 mg UNSCH PRN OTHER 04/25/17 08:15 (NovoLOG SUPPLEMENTAL SCALE) 1 Q4H SQ 04/25/17 09:00 05/15/17 00:44 (Epogen Inj) 10,000 units UNSCH PRN IV PUSH 04/25/17 13:00 05/05/17 11:12 Cefazolin Sodium 2000 mg/Sodium Chloride 120 ml @ 240 mls/hr VP BUSINESS DEVELOPMENT IV 04/30/17 14:30 05/01/17 12:02 (Benadryl) 25 mg Q4H PRN PO 05/01/17 10:00 (NS Flush) UNSCH PRN IV FLUSH 05/01/17 12:00 (Heparin Inj) UNSCH PRN IV FLUSH 05/01/17 12:00 (Flomax) 0.4 mg HS PO 05/03/17 21:00 05/14/17 21:25 (Norvasc) 10 mg DAILY PO 05/04/17 09:00 05/15/17 09:23 (Levemir Inj) 10 units Q12HR SQ 05/05/17 21:00 05/15/17 09:24 (Protonix Inj) 40 mg Q12HR IV PUSH 05/07/17 09:00 05/15/17 09:23 (Heparin Inj) 5,000 units Q12H SQ 05/09/17 22:00 05/15/17 09:23 (Lipitor) 40 mg HS PO 05/09/17 21:00 05/14/17 21:25 (Aspirin Chew) 81 mg DAILY CHEW 05/10/17 14:00 05/15/17 09:23 (Asacol Hd [address]) 800 mg Q8HR PO 05/10/17 16:30 05/15/17 12:18 (Tylenol) 650 mg Q4H PRN PO 05/12/17 04:30 05/12/17 17:03 Sodium Chloride 1,000 ml @ 100 mls/hr Q10H IV 05/13/17 14:15 05/15/17 09:22 (Vaishali Barton MD R1) Urinary Catheter: No (Vaishali Barton MD R1) Vascular Central Line Catheter: No Line: Central Venous Catheter Side: Right Location: Jugular (Vaishali Barton MD R1) A/P Assessment and Plan Patient is 67 year old male with a past medical history significant of HTN and DM presented to ED via EVAC due to a one week history of decreased PO intake. Patient found to be altered, hypertensive with blood glucose greater than 900, elevated anion gap of 29, beta hydroxy of 11.9. Patient admitted for management of DKA. Transitioned to SQ insulin on 04/22. On 04/23 patient was found to have significant transaminitis as well as worsening renal function. GI and Nephrology consulted. Vascular was consulted when no pulses (femoral, popliteal, dorsalis pedis or post tibial) were palpable on right. Ultrasound revealed complete occlusion of blood flow to the right leg; patient was immediately taken to the OR for right leg clot fasciotomy thrombectomy. On 04/24 patient was found to have worsening renal function with creatinine of 4.85 and a potassium of 7.1. Right internal jugular vascular cath was placed and patient underwent hemodialysis. Patient was started on hemodialysis MWF on 04/24. Labs were indicative of rhabdomyolysis. Right above knee amputation with wound vac was performed on 04/24. Received one blood transfusion following the procedure. S /P closure of amputation site on 04/27 with drain removal 04/29. Critical Care signed off 04/28. Palliative care consulted 04/29 to further elucidate goals of care. PermCath placed 05/01 for continued outpatient dialysis. Urology consulted 05/04 to assist with urinary retention. Follow up with urology as outpatient. Patient was treated for UTI with Levaquin as well as a fungal infection in the urine (Fluconazole from 05/03 to 05/07). On hemodialysis M/F as of 05/07. On 05/07, bright red blood per rectum noted. Stool studies including C- diff sent. Hbg dropped to 6.9 and patient received 2 units PRBC GI was consulted and colonoscopy on 05/08 showed ulcers throughout the colon - biopsies pending. CT abdomen showed bilaterally occluded internal iliac arteries and global atherosclerosis - vascular recommending medical management with Lipitor and ASA. Heparin was restarted on 05/09 with no acute bleeding to date. Fevers in the mornings on 05/12 and 05/13; afebrile since 05/14 Last temp is 100.5 on 05/13 at 12 p.m. * Neuro: Intermittent AMS - RESOLVED; Dementia * Initially presented with altered mental status, confusion. Has resolved and patient oriented 3 with no signs of delirium. * No previous CVA history. * Triglycerides 200, cholesterol 155, LDL 102, HDL 12.6, A1c 17.7. * Rehab at discharge. Patient would like to consider going home with home health. * CV: History of CABG remotely; Intermittent bradycardia - RESOLVED; HTN; critical limb ischemia s/p amputation * Echo 04/24 showing EF 60-65%, normal LV size, no noted wall motion abnormalities. * Vascular surgery performed right leg clot fasciotomy thrombectomy on 04/23. * Right above knee amputation with wound vac was performed on 04/24. * Amputation closure performed 04/26. * Amlodipine increased to 10mg on 05/04 as patient's hypertension persisted. * CTA showing bilaterally occluded internal iliac arteries and global atherosclerosis - will manage medically with Lipitor and aspirin. * GI: Acute transaminitis - RESOLVED; difficulty swallowing - RESOLVED; hyperammonemia - RESOLVED; acute lower GI bleed - RESOLVED * LFTs were normal admission, then became significantly elevated most likely secondary to rhabdomyolysis. Returned to baseline following IV fluids and amputation of the right leg above the knee. * US Liver on 04/24 showed findings consistent with hepatic steatosis versus medical liver disease. Cholelithiasis noted. * Hepatitis panel nonreactive. * Patient with bloody bowel movement on 05/07 - colonoscopy on 05/08 showing ulcers in the colon. Pathology report reads: All of the colon biopsies show acute inflammation and features suggestive of ulceration. Substantial areas of mucosal architectural distortion are noted suggesting some degree of chronicity. The inflammatory background suggests ischemic colitis; however, Inflammatory bowel disease and chronic infectious colitis cannot be excluded from the differential diagnosis. * CT abdomen/pelvis 05/08: atherosclerotic change throughout, no aneurysm, occlusion of bilateral internal iliac arteries. * Started Heparin BID on 05/09 due to vaso-occlusive episode that lead to his amputation. H&H has been stable and will monitor closely. * FEN/RENAL: acute renal failure complicated by chronic kidney disease; urinary retention - RESOLVED; hypoalbuminemia; hypocalcemia; rhabdomyolysis - RESOLVED. * Creatinine elevated on admission at 3.42. Worsened after patient went into rhabdo. Nephrology was consult and patient has been on hemodialysis MWF since - spaced to on 05/07. Creatine trending up. Nephrology managing. * Renal US negative. * CK normalized 05/05. * Attempted to DC Montalvo on 05/02 - required straight cath over next 24 hours due to inability to urinate - started Flomax on 05/03. Continued urinary retention on 05/04 required reinsertion of Montalvo. * Urology consulted; recommended 7 days with Montalvo before another trial (trial due 05/11/2017). Continue Flomax and follow up with urology as outpatient. * Montalvo DC'ed on 05/11. Montalvo removed on 05/12. Appropriate urine output. * ID: UTI complicated by male gender, race, urethral injury. Leukocytosis 04/29; febrile and radiographic evidence of pneumonia. * Found to have UTI on admission with cultures growing Klebsiella, group B strep. Treated with Levaquin for 10 day course. * Leukocytosis on admission resolved but recurred 04/29, repeat UA at that time grew Joslyn. Patient started on Diflucan on 05/03. Leukocytosis resolved as of * Diflucan DCed per nephrology 05/07 (05/03-05/07). * Febrile and CXR with evidence of mild bibasilar infiltrates on 05/12. Started on Zosyn, Azithromycin and Vancomycin. * Febrile and CXR with evidence of left lower lung consolidation or pleural effusion, only seen on posterior lateral view on 05/13. Held vancomycin per nephrology. * UA negative on 05/13. * Blood culture negative to date. Sputum culture negative. Legionella and pneumococcus urinary antigens negative. UA negative. * Fevers likely due to atelectasis. Patient encouraged to use incentive spirometer. Antibiotics stopped 05/15. * HEME: rhabdomyolysis; acute blood loss anemia; anemia of chronic disease; acute lower GI bleed - RESOLVED. * Goal Hgb > 7. * Nephrology started Epoetin 10,000 units with dialysis. * Status post 2 units of packed red blood cells following amputation on 04/24, 1 unit on 05/01. * H/H trended after GI bleed on 05/07 - dropped to 6.9 and received 2 units PRBC 's with response to 7.8 - will continue to trend. * Monitor CBC, PRBCs for Hgb <7 or symptoms. * ENDO: Diabetes * Hyperglycemia: HHS on admission, resolved on 04/22 but insulin drip resumed on 04/24. Discontinued insulin drip and started SSI on 04/25. * A1c 17.7. * parent educator, sales and marketing agent consulted. * TSH wnl. * Patient now cleared for regular diet, increased Levemir to 10 units BID, will continue and monitor closely. * PROPHYLAXIS/LINES: * Heparin 5000U sq q12h. * PermCath 05/01/17. Discharge Planning Pending nephrology clearance. Patient desires to go home with home health. (Vaishali Barton MD R1) Attending Attestation Patient seen and examined, discussed with resident team. I agree with assessment and management as documented and discussed with me. This afternoon, pt is without complaints. Pain in leg is controlled. He denies SOB, chest pain. Encourged pt to work with PT. Renal function slowly improving. Additional diagnosis: Ischemic bowel: involving iliac arteries. Currently on heparin SQ. (Judy Dale MD) Problem List: (1) Hyperammonemia ICD Codes: E72.20 - Disorder of urea cycle metabolism, unspecified Status: Resolved (2) Compartment syndrome ICD Codes: T79.A0XA - Compartment syndrome, unspecified, initial encounter Status: Resolved (3) Diabetes mellitus ICD Codes: E11.9 - Diabetes mellitus Status: Chronic (4) Hypertension ICD Codes: I10 - Hypertension Status: Acute (5) Acute renal failure ICD Codes: N17.9 - Acute kidney failure, unspecified Status: Acute (6) Hypernatremia ICD Codes: E87.0 - Hyperosmolality and hypernatremia Status: Resolved (7) Hyperkalemia ICD Codes: E87.5 - Hyperkalemia Status: Resolved (8) UTI (urinary tract infection) ICD Codes: N39.0 - Urinary tract infection, site not specified Status: Resolved (9) Transaminitis ICD Codes: R74.0 - Nonspecific elevation of levels of transaminase and lactic acid dehydrogenase [LDH] Status: Resolved (10) Pneumonia ICD Codes: J18.9 - Pneumonia, unspecified organism Status: Acute (11) Anemia ICD Codes: D64.9 - Anemia, unspecified (12) Atelectasis ICD Codes: J98.11 - Atelectasis (Vaishali Barton MD R1) Problem Qualifiers (1) Acute renal failure: Qualified Codes: N17.9 - Acute kidney failure, unspecified (2) UTI (urinary tract infection): Qualified Codes: N10 - Acute pyelonephritis Vaishali Barton MD R1 May 15, 2017 18:25 Judy Dale MD May 16, 2017 20:41
[2017-05-15 20:15] VITALS: BP 168/72; PULSE 80; RESP 16; TEMP 99.3; O2SAT 96
[2017-05-15] MEDS: TAMSULOSIN HCL 0.4 MG CAP PO SCH (21:17)
[2017-05-15] MEDS: ATORVASTATIN 40 MG TAB PO SCH (21:17)
[2017-05-16 00:15] VITALS: BP 164/74; PULSE 94; RESP 16; TEMP 99.1; O2SAT 99
[2017-05-16] MEDS: INSULIN ASPART SUPPLEMENTAL SCALE SQ SCH ×6 (01:00→20:48)
[2017-05-16] MEDS: SODIUM CHLOR 0.9% 1000 ML INJ 1,000 ML IV SCH ×3 (02:15→22:15)
[2017-05-16] MEDS: CHLORHEXIDINE GLUCONATE 2 % 1 PACK (2 CLOTHS) TOP SCH (04:00)
[2017-05-16 04:45] VITALS: BP 147/65; PULSE 86; RESP 16; TEMP 98.8; O2SAT 99
[2017-05-16] MEDS: MESALAMINE HD 800 MG DELAYED RELEASE TAB PO SCH ×3 (06:13→20:47)
[2017-05-16 07:19] LABS: BASOPHIL % 0.9 % (0.0-2.0); EOSINOPHIL # 0.1 TH/MM3 (0-0.4); EOSINOPHIL % 2.8 % (0.0-4.0); HEMATOCRIT 25.2 % (39.0-51.0); HEMOGLOBIN 8.4 GM/DL (13.0-17.0); LYMPH % 24.2 % (9.0-44.0); LYMPHOCYTE # 1.1 TH/MM3 (1.0-4.8); MEAN CELL VOLUME 90.7 FL (80.0-100.0); MEAN CORPUSCULAR HEMOGLOBIN 30.3 PG (27.0-34.0); MEAN CORPUSCULAR HGB CONC 33.4 % (32.0-36.0); MEAN PLATELET VOLUME 7.3 FL (7.0-11.0); MONO % 8.5 % (0.0-8.0); MONOCYTE # 0.4 TH/MM3 (0-0.9); NEUT % 63.6 % (16.0-70.0); PLATELET COUNT 341 TH/MM3 (150-450); RED BLOOD COUNT 2.78 MIL/MM3 (4.50-5.90); RED CELL DISTRIBUTION WIDTH 16.7 % (11.6-17.2); WHITE BLOOD COUNT 4.7 TH/MM3 (4.0-11.0)
[2017-05-16 07:36] VITALS: BP 131/60; PULSE 80; RESP 18; TEMP 98.9; O2SAT 99
[2017-05-16 07:42] LABS: ALBUMIN 2.1 GM/DL (3.4-5.0); BICARBONATE 21.1 MEQ/L (21.0-32.0); BLOOD UREA NITROGEN 39 MG/DL (7-18); CALCIUM 7.9 MG/DL (8.5-10.1); CHLORIDE 114 MEQ/L (98-107); GLOMERULAR FILTRATION RATE 18 ML/MIN (>89); GLUCOSE,RANDOM 91 MG/DL (74-106); SODIUM (NA) 143 MEQ/L (136-145)
[2017-05-16 07:43] LABS: ALT (GPT) 11 U/L (12-78)
[2017-05-16 07:47] LABS: ALKALINE PHOSPHATASE 57 U/L (45-117); AST (GOT) 28 U/L (15-37); TOTAL BILIRUBIN ADULT 0.2 MG/DL (0.2-1.0); TOTAL PROTEIN 5.8 GM/DL (6.4-8.2)
[2017-05-16] MEDS: INSULIN DETEMIR 100 UNITS/ML VIAL SQ SCH ×2 (09:13→20:46)
[2017-05-16] MEDS: HEPARIN SODIUM - SQ 10,000 UNITS/ML VIAL SQ SCH ×2 (09:15→20:48)
[2017-05-16] MEDS: ASPIRIN 81 MG CHEW TAB CHEW SCH (09:15)
[2017-05-16] MEDS: SODIUM CHLORIDE 0.9% FLUSH 10 ML FLUSH IV FLUSH SCH ×2 (09:16→20:47)
[2017-05-16] MEDS: PANTOPRAZOLE SODIUM 40 MG VIAL IV PUSH SCH ×2 (09:16→20:46)
[2017-05-16] MEDS ORDERED: WALKER WHEELS/F1 MIS (09:42)
[2017-05-16] MEDS ORDERED: WHEEMIS3 (09:42)
[2017-05-16 11:39] VITALS: BP 150/65; PULSE 82; RESP 18; TEMP 99; O2SAT 99
--- NOTE | 2017-05-16 15:05 | HHI.NPPN ---
Subjective History of Present Illness 67 year old with Hypertension,DKA, DM, ARF Additional Remarks Patient is alert, no SOB, mild pain in Rt. leg, eating well, not in distress. Objective Data Data Vital Signs Date Time Temp Pulse Resp B/P (MAP) Pulse Ox O2 Delivery O2 Flow Rate FiO2 05/16/17 11:39 99.0 82 18 150/65 (93) 99 05/16/17 08:00 99 Room Air 05/16/17 07:36 98.9 80 18 131/60 (83) 99 05/16/17 04:45 98.8 86 16 147/65 (92) 99 05/16/17 00:15 99.1 94 16 164/74 (104) 99 05/15/17 20:15 99.3 80 16 168/72 (104) 96 05/15/17 16:00 98.8 80 20 135/61 (85) 97 -: 05/16/17 0632 05/16/17 0632 Physical Exam General Appearance: Well Nourished, No Acute Distress, Comfortable Neck Neck Exam: Neck Supple Pulmonary Resp Exam: Clear Bilaterally, Breath Sounds Equal Cardiology CV Exam: Regular, Normal Sinus Rhythm Gastrointestinal/Abdomen GI Exam: Soft, Non-Tender, Bowel Sounds Present Extremeties Extremities Exam: Moderate Edema (Rt. AKA.) Extremeties Remarks Rt AKA Neurologic Neuro Exam: Alert, Awake Psychiatric Psych Exam: Appropriate Responses Assessment/Plan Problem List: (1) Acute renal failure ICD Codes: N17.9 - Acute kidney failure, unspecified Status: Acute Plan: Patient has chronic kidney disease and acute renal failure with rhabdomyolysis creatinine 4.53 -> 5.9 -> 7.2 -> 5.3 -> 6.3->5.09 -> 5.5 ->4.5-> 5.3->5.4->3.8- > 4.5->4.3->.3.9-> 4.0->4.2->3.9->3.8->3.4 Right lower leg ischemia now status post right AKA. Creatinine is 3.4 improved with hydration on IVF dc PermCath had not been dialyzed since May 05 Discussed water intake (2) CKD (chronic kidney disease) stage 3, GFR 30-59 ml/min ICD Codes: N18.3 - Chronic kidney disease, stage 3 (moderate) Status: Chronic Plan: kidney ultrasound left renal cyst (3) Diabetes ICD Codes: E11.9 - Type 2 diabetes mellitus without complications Status: Chronic Plan: History of DKA continue to monitor (4) Hypertension ICD Codes: I10 - Hypertension Status: Acute Plan: BP stable (5) DKA (diabetic ketoacidoses) ICD Codes: E13.10 - Other specified diabetes mellitus with ketoacidosis without coma Status: Acute Plan: Resolved (6) Hypernatremia ICD Codes: E87.0 - Hyperosmolality and hypernatremia Status: Resolved Problem Qualifiers (1) Acute renal failure: Qualified Codes: N17.9 - Acute kidney failure, unspecified Natacha Suarez MD May 16, 2017 15:05
[2017-05-16 16:00] VITALS: BP 141/65; PULSE 87; RESP 18; TEMP 98.5; O2SAT 99
[2017-05-16] MEDS ORDERED: LIDOCAINE 1%/EPINEPHrine 1:100,000 SOLN 30 ML VIAL ONE (16:18)
--- NOTE | 2017-05-16 16:43 | RADRPT ---
EXAM DATE/TIME: 05/16/2017 00:00 [facility] COMPARISON: No previous studies available for comparison. INDICATIONS : Patient with history of renal disease in need of permanent central venous catheter removal following completion of dialysis. MEDICAL HISTORY : ESDR HTN Diabetes CAD SURGICAL HISTORY : CABG ENCOUNTER: Initial ACUITY: 2 weeks PAIN SCORE: 0/10 LOCATION: N/A FLUORO TIME: 0 minutes IMAGE SERIES: 0 PROCEDURE : 1. PermaCath removal. The risks, benefits and alternatives to the procedure were explained and verbal and written consent w as obtained. The site was prepped in sterile fashion. Full sterile technique was used, including ca p, mask, sterile gloves and gown and a large sterile sheet. Hand hygiene and 2% chlorhexidine and/or betadine/alcohol prep was utilized per protocol for cutaneous antisepsis. The skin and subcutaneous tissues were infiltrated with local anesthetic solution. The tract was anesthetized with 1% Lidocaine using. The Permcath was dissected from the subcutaneous tissues and easily removed in one piece. Manual pressure was applied to the venotomy site until hem ostasis was obtained. Sterile dressing was applied. The patient tolerated the procedure well and there were no complications. CONCLUSION: Uncomplicated Permcath removal. Dmitriy Kumar MD on May 16, 2017 at 16:40 Board Certified Radiologist. This report was verified electronically.
[2017-05-16 19:30] VITALS: BP 162/72; PULSE 91; RESP 15; TEMP 98.7; O2SAT 99
--- NOTE | 2017-05-16 19:54 | HHI.FPPN ---
Subjective Remarks Patient was seen and evaluated this morning. He reports feeling well. He denies any respiratory symptoms. He denies chest pain, heart palpitations, shortness of breath, nausea/vomiting, diarrhea and constipation. All questions were answered. (Vaishali Barton MD R1) Objective Vitals Vital Signs Date Time Temp Pulse Resp B/P (MAP) Pulse Ox O2 Delivery O2 Flow Rate FiO2 05/16/17 16:00 98.5 87 18 141/65 (90) 99 05/16/17 11:39 99.0 82 18 150/65 (93) 99 05/16/17 08:00 99 Room Air 05/16/17 07:36 98.9 80 18 131/60 (83) 99 05/16/17 04:45 98.8 86 16 147/65 (92) 99 05/16/17 00:15 99.1 94 16 164/74 (104) 99 05/15/17 20:15 99.3 80 16 168/72 (104) 96 I/O 05/15/17 05/15/17 05/15/17 05/16/17 05/16/17 05/16/17 06:59 14:59 22:59 06:59 14:59 22:59 Intake Total 50 ml 1900 ml 586 ml 640 ml 960 ml Output Total 2 ml Balance 50 ml 1900 ml 586 ml 638 ml 960 ml Intake Oral 600 ml 640 ml 960 ml IV Total 50 ml 1300 ml 586 ml Stool Total 2 ml # Voids 2 3 2 2 # Bowel Movements 1 1 0 (Vaishali Barton MD R1) Result Diagram: 05/16/17 0632 05/16/17 0632 Imaging Last 72 hours Impressions Central Venous Line 05/16/17 0000 Signed Impressions: Service Date/Time: Tuesday, May 16, 2017 00:00 - CONCLUSION: Uncomplicated Permcath removal. Dmitriy Kumar MD Objective Remarks GENERAL: This is a thin male, lying in bed in no acute distress. SKIN: No rashes, ecchymoses or lesions outside of RLE as noted below. Perm cath in right chest wall with no erythema or drainage noted. HEAD: Atraumatic. Normocephalic. EYES: Pupils equal round. Extraocular motions intact. CARDIOVASCULAR: Regular rate and rhythm without murmurs, gallops, or rubs. RESPIRATORY: Coarse breath sounds/crackles noted in lower lung kay. GASTROINTESTINAL: Abdomen soft, non-tender, nondistended. No hepato-splenomegaly , or palpable masses. No guarding. MUSCULOSKELETAL: RLE with [id number] amputation, site is clean with no drainage, stitches intact. No erythema or drainage noted at surgical site. Also sutures appreciated in the right inguinal area with no drainage or erythema. Skin is warm above level of amputation. LLE warm to touch. NEUROLOGICAL: Cranial nerves grossly intact. Moving LLE and upper extremities spontaneously. Answers questions appropriately. Medications and IVs Current Medications Medications (Trade) Dose Ordered Sig/Erick Route Start Time Stop Time Status Last Admin (NS Flush) 2 ml UNSCH PRN IV FLUSH 04/21/17 20:45 (NS Flush) 2 ml BID IV FLUSH 04/21/17 21:00 05/16/17 09:16 Sodium Phosphate 15 mmol/Sodium Chloride 105 ml @ 25 mls/hr UNSCH PRN IV 04/21/17 21:15 Miscellaneous Information 1 Q361D XX 04/21/17 21:15 04/22/17 03:07 (Chlorhexidine 2% Cloth) Taper DAILY@04 TOP 04/22/17 04:00 04/18/18 03:59 (Chlorhexidine 2% Cloth) 3 pack UNSCH PRN TOP 04/21/17 21:15 (Apresoline Inj) 10 mg Q6H PRN IV PUSH 04/21/17 21:30 04/23/17 01:05 (Zofran Inj) 4 mg Q8HR PRN IV PUSH 04/22/17 17:00 (Roxicodone) 5 mg Q4H PRN PO 04/23/17 23:30 04/28/17 16:04 (Roxicodone) 10 mg Q4H PRN PO 04/23/17 23:30 05/16/17 14:17 (Dilaudid Pf Inj) 0.2 mg Q4H PRN IV PUSH 04/23/17 23:30 04/28/17 08:49 Sodium Chloride 1,000 ml @ 0 mls/hr Q0M PRN OTHER 04/24/17 06:57 (Heparin Inj) 8,000 units UNSCH PRN IV FLUSH 04/24/17 07:00 Sodium Chloride 1,000 ml @ 200 mls/hr Q5H PRN IV 04/24/17 06:57 Sodium Chloride 1,000 ml @ 0 mls/hr Q0M PRN OTHER 04/24/17 06:57 (Mannitol Inj) 12.5 gm UNSCH PRN IV 04/24/17 07:00 Albumin Human 100 ml @ 60 mls/hr UNSCH PRN IV 04/24/17 07:00 04/24/17 09:22 (NS Flush) 5 ml UNSCH PRN IV FLUSH 04/24/17 07:00 (Heparin Inj) UNSCH PRN .XX 04/24/17 07:00 05/05/17 11:12 (Gentamicin Inj) 20 mg UNSCH PRN OTHER 04/24/17 07:00 05/05/17 11:13 (Zofran Inj) 4 mg UNSCH PRN IV PUSH 04/24/17 07:00 (Tylenol) 650 mg UNSCH PRN PO 04/24/17 07:00 05/05/17 08:21 (Benadryl) 25 mg UNSCH PRN PO 04/24/17 07:00 05/03/17 22:54 (Nitrostat Sl) 0.4 mg UNSCH PRN SL 04/24/17 07:00 (Catapres) 0.1 mg UNSCH PRN PO 04/24/17 07:00 05/02/17 23:38 (Gelfoam 12 Mm/7 Mm Top) 1 foam UNSCH PRN TOP 04/24/17 07:00 (D50w (Vial) Inj) 50 ml UNSCH PRN IV PUSH 04/25/17 08:15 (Glucagon Inj) 1 mg UNSCH PRN OTHER 04/25/17 08:15 (NovoLOG SUPPLEMENTAL SCALE) 1 Q4H SQ 04/25/17 09:00 05/16/17 17:00 (Epogen Inj) 10,000 units UNSCH PRN IV PUSH 04/25/17 13:00 05/05/17 11:12 Cefazolin Sodium 2000 mg/Sodium Chloride 120 ml @ 240 mls/hr STOVE MECHANIC IV 04/30/17 14:30 05/01/17 12:02 (Benadryl) 25 mg Q4H PRN PO 05/01/17 10:00 (NS Flush) UNSCH PRN IV FLUSH 05/01/17 12:00 (Heparin Inj) UNSCH PRN IV FLUSH 05/01/17 12:00 (Flomax) 0.4 mg HS PO 05/03/17 21:00 05/15/17 21:17 (Norvasc) 10 mg DAILY PO 05/04/17 09:00 05/16/17 09:15 (Levemir Inj) 10 units Q12HR SQ 05/05/17 21:00 05/16/17 09:13 (Protonix Inj) 40 mg Q12HR IV PUSH 05/07/17 09:00 05/16/17 09:16 (Heparin Inj) 5,000 units Q12H SQ 05/09/17 22:00 05/16/17 09:15 (Lipitor) 40 mg HS PO 05/09/17 21:00 05/15/17 21:17 (Aspirin Chew) 81 mg DAILY CHEW 05/10/17 14:00 05/16/17 09:15 (As[address] Hd [address]) 800 mg Q8HR PO 05/10/17 16:30 05/16/17 14:17 (Tylenol) 650 mg Q4H PRN PO 05/12/17 04:30 05/12/17 17:03 Sodium Chloride 1,000 ml @ 100 mls/hr Q10H IV 05/13/17 14:15 05/16/17 02:15 (Vaishali Barton MD R1) Urinary Catheter: No (Vaishali Barton MD R1) Vascular Central Line Catheter: Yes Assessment to: Continue Line: Central Venous Catheter Side: Right Location: Jugular (Vaishali Barton MD R1) A/P Assessment and Plan Patient is 67 year old male with a past medical history significant of HTN and DM presented to ED via EVAC due to a one week history of decreased PO intake. Patient found to be altered, hypertensive with blood glucose greater than 900, elevated anion gap of 29, beta hydroxy of 11.9. Patient admitted for management of DKA. Transitioned to SQ insulin on 04/22. On 04/23 patient was found to have significant transaminitis as well as worsening renal function. GI and Nephrology consulted. Vascular was consulted when no pulses (femoral, popliteal, dorsalis pedis or post tibial) were palpable on right. Ultrasound revealed complete occlusion of blood flow to the right leg; patient was immediately taken to the OR for right leg clot fasciotomy thrombectomy. On 04/24 patient was found to have worsening renal function with creatinine of 4.85 and a potassium of 7.1. Right internal jugular vascular cath was placed and patient underwent hemodialysis. Patient was started on hemodialysis MWF on 04/24. Labs were indicative of rhabdomyolysis. Right above knee amputation with wound vac was performed on 04/24. Received one blood transfusion following the procedure. S /P closure of amputation site on 04/27 with drain removal 04/29. Critical Care signed off 04/28. Palliative care consulted 04/29 to further elucidate goals of care. PermCath placed 05/01 for continued outpatient dialysis. Urology consulted 05/04 to assist with urinary retention. Follow up with urology as outpatient. Patient was treated for UTI with Levaquin as well as a fungal infection in the urine (Fluconazole from 05/03 to 05/07). On hemodialysis M/F as of 05/07. On 05/07, bright red blood per rectum noted. Stool studies including C- diff sent. Hbg dropped to 6.9 and patient received 2 units PRBC GI was consulted and colonoscopy on 05/08 showed ulcers throughout the colon - biopsies pending. CT abdomen showed bilaterally occluded internal iliac arteries and global atherosclerosis - vascular recommending medical management with Lipitor and ASA. Heparin was restarted on 05/09 with no acute bleeding to date. Fevers in the mornings on 05/12 and 05/13; afebrile since 05/14 Last temp is 100.5 on 05/13 at 12 p.m. * Neuro: Intermittent AMS - RESOLVED; Dementia * Initially presented with altered mental status, confusion. Has resolved and patient oriented 3 with no signs of delirium. * No previous CVA history. * Triglycerides 200, cholesterol 155, LDL 102, HDL 12.6, A1c 17.7. * Rehab at discharge. Patient unsure whether he would like to go to rehab or home with home health. Patient has been accepted at [facility]. * CV: History of CABG remotely; Intermittent bradycardia - RESOLVED; HTN; critical limb ischemia s/p amputation * Echo 04/24 showing EF 60-65%, normal LV size, no noted wall motion abnormalities. * Vascular surgery performed right leg clot fasciotomy thrombectomy on 04/23. * Right above knee amputation with wound vac was performed on 04/24. * Amputation closure performed 04/26. * Amlodipine increased to 10mg on 05/04 as patient's hypertension persisted. * CTA showing bilaterally occluded internal iliac arteries and global atherosclerosis - will manage medically with Lipitor and aspirin. * GI: Acute transaminitis - RESOLVED; difficulty swallowing - RESOLVED; hyperammonemia - RESOLVED; acute lower GI bleed - RESOLVED * LFTs were normal admission, then became significantly elevated most likely secondary to rhabdomyolysis. Returned to baseline following IV fluids and amputation of the right leg above the knee. * US Liver on 04/24 showed findings consistent with hepatic steatosis versus medical liver disease. Cholelithiasis noted. * Hepatitis panel nonreactive. * Patient with bloody bowel movement on 05/07 - colonoscopy on 05/08 showing ulcers in the colon. Pathology report reads: All of the colon biopsies show acute inflammation and features suggestive of ulceration. Substantial areas of mucosal architectural distortion are noted suggesting some degree of chronicity. The inflammatory background suggests ischemic colitis; however, Inflammatory bowel disease and chronic infectious colitis cannot be excluded from the differential diagnosis. * CT abdomen/pelvis 05/08: atherosclerotic change throughout, no aneurysm, occlusion of bilateral internal iliac arteries. * Started Heparin BID on 05/09 due to vaso-occlusive episode that lead to his amputation. H&H has been stable and will monitor closely. * FEN/RENAL: acute renal failure complicated by chronic kidney disease; urinary retention - RESOLVED; hypoalbuminemia; hypocalcemia; rhabdomyolysis - RESOLVED. * Creatinine elevated on admission at 3.42. Worsened after patient went into rhabdo. Nephrology was consult and patient has been on hemodialysis MWF since - spaced to on 05/07. Creatine trending up. Nephrology managing. * Renal US negative. * CK normalized 05/05. * Attempted to DC Montalvo on 05/02 - required straight cath over next 24 hours due to inability to urinate - started Flomax on 05/03. Continued urinary retention on 05/04 required reinsertion of Montalvo. * Urology consulted; recommended 7 days with Montalvo before another trial (trial due 05/11/2017). Continue Flomax and follow up with urology as outpatient. * Montalvo DC'ed on 05/11. Montalvo removed on 05/12. Appropriate urine output. * ID: UTI complicated by male gender, race, urethral injury. Leukocytosis 04/29; febrile and radiographic evidence of pneumonia. * Found to have UTI on admission with cultures growing Klebsiella, group B strep. Treated with Levaquin for 10 day course. * Leukocytosis on admission resolved but recurred 04/29, repeat UA at that time grew Joslyn. Patient started on Diflucan on 05/03. Leukocytosis resolved as of * Diflucan DCed per nephrology 05/07 (05/03-05/07). * Febrile and CXR with evidence of mild bibasilar infiltrates on 05/12. Started on Zosyn, Azithromycin and Vancomycin. * Febrile and CXR with evidence of left lower lung consolidation or pleural effusion, only seen on posterior lateral view on 05/13. Held vancomycin per nephrology. * UA negative on 05/13. * Blood culture negative to date. Sputum culture negative. Legionella and pneumococcus urinary antigens negative. UA negative. * Fevers likely due to atelectasis. Patient encouraged to use incentive spirometer. Antibiotics stopped 05/15. * HEME: rhabdomyolysis; acute blood loss anemia; anemia of chronic disease; acute lower GI bleed - RESOLVED. * Goal Hgb > 7. * Nephrology started Epoetin 10,000 units with dialysis. * Status post 2 units of packed red blood cells following amputation on 04/24, 1 unit on 05/01. * H/H trended after GI bleed on 05/07 - dropped to 6.9 and received 2 units PRBC 's with response to 7.8 - will continue to trend. * Monitor CBC, PRBCs for Hgb <7 or symptoms. * ENDO: Diabetes * Hyperglycemia: HHS on admission, resolved on 04/22 but insulin drip resumed on 04/24. Discontinued insulin drip and started SSI on 04/25. * A1c 17.7. * museum educator, steeple jack consulted. * TSH wnl. * Patient now cleared for regular diet, increased Levemir to 10 units BID, will continue and monitor closely. * PROPHYLAXIS/LINES: * Heparin 5000U sq q12h. * PermCath 05/01/17. Discharge Planning Pending nephrology clearance. (Vaishali Barton MD R1) Attending Attestation Patient seen, examined, and discussed with resident team. I agree with assessment and management as documented and discussed with me. Pt reports leg pain is controlled. This morning, he is amenable to going to rehab. Kidney function slowly improving. (Judy Dale MD) Problem List: (1) Hyperammonemia ICD Codes: E72.20 - Disorder of urea cycle metabolism, unspecified Status: Resolved (2) Compartment syndrome ICD Codes: T79.A0XA - Compartment syndrome, unspecified, initial encounter Status: Resolved (3) Diabetes mellitus ICD Codes: E11.9 - Diabetes mellitus Status: Chronic (4) Hypertension ICD Codes: I10 - Hypertension Status: Acute (5) Acute renal failure ICD Codes: N17.9 - Acute kidney failure, unspecified Status: Acute (6) Hypernatremia ICD Codes: E87.0 - Hyperosmolality and hypernatremia Status: Resolved (7) Hyperkalemia ICD Codes: E87.5 - Hyperkalemia Status: Resolved (8) UTI (urinary tract infection) ICD Codes: N39.0 - Urinary tract infection, site not specified Status: Resolved (9) Transaminitis ICD Codes: R74.0 - Nonspecific elevation of levels of transaminase and lactic acid dehydrogenase [LDH] Status: Resolved (10) Pneumonia ICD Codes: J18.9 - Pneumonia, unspecified organism Status: Acute (11) Anemia ICD Codes: D64.9 - Anemia, unspecified (12) Atelectasis ICD Codes: J98.11 - Atelectasis (Vaishali Barton MD R1) Problem Qualifiers (1) Acute renal failure: Qualified Codes: N17.9 - Acute kidney failure, unspecified (2) UTI (urinary tract infection): Qualified Codes: N10 - Acute pyelonephritis Vaishali Barton MD R1 May 16, 2017 19:54 Judy Dale MD May 16, 2017 21:00
[2017-05-16] MEDS: TAMSULOSIN HCL 0.4 MG CAP PO SCH (20:47)
[2017-05-16] MEDS: ATORVASTATIN 40 MG TAB PO SCH (20:47)
[2017-05-17] VITALS: BP 181/80; PULSE 86; RESP 16; TEMP 97.4; O2SAT 100
[2017-05-17] MEDS: INSULIN ASPART SUPPLEMENTAL SCALE SQ SCH ×4 (01:00→12:32)
[2017-05-17] MEDS: CHLORHEXIDINE GLUCONATE 2 % 1 PACK (2 CLOTHS) TOP SCH (04:00)
[2017-05-17 04:20] VITALS: BP 157/71; PULSE 89; RESP 17; TEMP 100.6; O2SAT 99
[2017-05-17] MEDS: MESALAMINE HD 800 MG DELAYED RELEASE TAB PO SCH ×2 (05:16→13:15)
[2017-05-17 05:29] LABS: HEMOGLOBIN 8.6 GM/DL (13.0-17.0); MEAN CORPUSCULAR HEMOGLOBIN 29.6 PG (27.0-34.0); MEAN CORPUSCULAR HGB CONC 32.9 % (32.0-36.0); MEAN PLATELET VOLUME 7.5 FL (7.0-11.0); PLATELET COUNT 345 TH/MM3 (150-450); RED BLOOD COUNT 2.89 MIL/MM3 (4.50-5.90); RED CELL DISTRIBUTION WIDTH 16.6 % (11.6-17.2); WHITE BLOOD COUNT 5.9 TH/MM3 (4.0-11.0)
[2017-05-17 05:40] LABS: BICARBONATE 21.1 MEQ/L (21.0-32.0); CALCIUM 8.3 MG/DL (8.5-10.1); CREATININE 3.12 MG/DL (0.60-1.30)
[2017-05-17 08:00] VITALS: BP 140/63; PULSE 84; RESP 18; TEMP 99.5; O2SAT 98
[2017-05-17] MEDS: SODIUM CHLOR 0.9% 1000 ML INJ 1,000 ML IV SCH (08:15)
[2017-05-17] MEDS: PANTOPRAZOLE SODIUM 40 MG VIAL IV PUSH SCH (09:10)
[2017-05-17] MEDS: SODIUM CHLORIDE 0.9% FLUSH 10 ML FLUSH IV FLUSH SCH (09:10)
[2017-05-17] MEDS: ASPIRIN 81 MG CHEW TAB CHEW SCH (09:11)
[2017-05-17] MEDS: INSULIN DETEMIR 100 UNITS/ML VIAL SQ SCH (09:12)
[2017-05-17] MEDS: HEPARIN SODIUM - SQ 10,000 UNITS/ML VIAL SQ SCH (09:16)
--- NOTE | 2017-05-17 10:33 | RADRPT ---
EXAM DATE/TIME: 05/17/2017 10:04 [facility] COMPARISON: CHEST PA & LAT, May 13, 2017, 11:43. INDICATIONS : Fever. MEDICAL HISTORY : Hypertension. Cardiovascular disease. Diabetes mellitus type II. SURGICAL HISTORY : CABG. Coronary artery stent. INFUSAPORT. ENCOUNTER: Subsequent ACUITY: 4 - 6 days PAIN SCORE: 3/10 LOCATION: Bilateral chest FINDINGS: PA lateral views of the chest demonstrate postsurgical changes related to prior CABG surgery. The saud gs are hyperinflated with increased AP diameter and mild flattening of the diaphragms. The lungs are lucent. Osseous structures are intact. There has been interval removal of a right-sided central line. CONCLUSION: CBD changes. No evidence of acute abnormality.. Betsy Green MD on May 17, 2017 at 10:30 Board Certified Radiologist. This report was verified electronically.
[2017-05-17] MEDS ORDERED: Heparin Inj SQ (11:59)
[2017-05-17] MEDS ORDERED: MESA1TAB2 PO (11:59)
[2017-05-17] MEDS ORDERED: ASPI81 CHEW (11:59)
[2017-05-17] MEDS ORDERED: ATOR40TA16 PO (11:59)
[2017-05-17 12:00] VITALS: BP 155/69; PULSE 82; RESP 17; TEMP 99.9; O2SAT 97
--- NOTE | 2017-05-17 12:01 | HHI.DCPOC ---
Discharge Care Plan Diagnosis: (1) DKA (diabetic ketoacidoses) (2) Diabetes mellitus (3) CKD (chronic kidney disease) stage 3, GFR 30-59 ml/min (4) Ischemic leg (5) Acute renal failure (6) Rhabdomyolysis (7) Amputation of right lower extremity (8) Urinary retention (9) UTI (urinary tract infection) (10) Atelectasis Goals to Promote Your Health * To prevent worsening of your condition and complications * To maintain your health at the optimal level Directions to Meet Your Goals Take your medications as prescribed Follow your dietary instruction Follow activity as directed Keep your appointments as scheduled Take your immunizations and boosters as scheduled If your symptoms worsen call your PCP, if no PCP go to Urgent Care Center or Emergency Room Smoking is Dangerous to Your Health. Avoid second hand smoke Call the 24-hour hour crisis hotline for domestic abuse at Vaishali Barton MD R1 May 17, 2017 12:01
--- NOTE | 2017-05-17 12:02 | HHI.FPPN ---
Subjective Remarks Patient was seen and evaluated this morning. He feels well and would like to be transferred to [place] today. He denies shortness of breath, chest and abdominal pain, nausea, vomiting, diarrhea and constipation. All questions were answered. (Vaishali Barton MD R1) Objective Vitals Vital Signs Date Time Temp Pulse Resp B/P (MAP) Pulse Ox O2 Delivery O2 Flow Rate FiO2 05/17/17 10:23 18 05/17/17 08:00 99.5 84 18 140/63 (88) 98 05/17/17 04:20 100.6 89 17 157/71 (99) 99 05/17/17 00:00 97.4 86 16 181/80 (113) 100 05/16/17 19:30 98.7 91 15 162/72 (102) 99 05/16/17 16:00 98.5 87 18 141/65 (90) 99 I/O 05/16/17 05/16/17 05/16/17 05/17/17 05/17/17 05/17/17 07:00 15:00 23:00 07:00 15:00 23:00 Intake Total 640 ml 960 ml 960 ml Output Total 2 ml Balance 638 ml 960 ml 960 ml Intake Oral 640 ml 960 ml 960 ml Stool Total 2 ml # Voids 2 2 5 # Bowel Movements 0 2 (Vaishali Barton MD R1) Result Diagram: 05/17/17 0446 05/17/17 0446 Imaging Last 72 hours Impressions Chest X-Ray 05/17/17 0000 Signed Impressions: Service Date/Time: Wednesday, May 17, 2017 10:04 - CONCLUSION: CBD changes. No evidence of acute abnormality.. Betsy Green MD Central Venous Line 05/16/17 0000 Signed Impressions: Service Date/Time: Tuesday, May 16, 2017 00:00 - CONCLUSION: Uncomplicated Permcath removal. Dmitriy Kumar MD Objective Remarks GENERAL: This is a thin male, lying in bed in no acute distress. SKIN: No rashes, ecchymoses or lesions outside of RLE as noted below. HEAD: Atraumatic. Normocephalic. EYES: Pupils equal round. Extraocular motions intact. CARDIOVASCULAR: Regular rate and rhythm without murmurs, gallops, or rubs. RESPIRATORY: Coarse breath sounds/crackles noted in lower lung kay. GASTROINTESTINAL: Abdomen soft, non-tender, nondistended. No hepato-splenomegaly , or palpable masses. No guarding. MUSCULOSKELETAL: RLE with hbilh-cus-ecda amputation, site is clean with no drainage, stitches intact. No erythema or drainage noted at surgical site. Also sutures appreciated in the right inguinal area with no drainage or erythema. Skin is warm above level of amputation. LLE warm to touch. NEUROLOGICAL: Cranial nerves grossly intact. Moving LLE and upper extremities spontaneously. Answers questions appropriately. Medications and IVs Current Medications Medications (Trade) Dose Ordered Sig/Erick Route Start Time Stop Time Status Last Admin (NS Flush) 2 ml UNSCH PRN IV FLUSH 04/21/17 20:45 (NS Flush) 2 ml BID IV FLUSH 04/21/17 21:00 05/17/17 09:10 Sodium Phosphate 15 mmol/Sodium Chloride 105 ml @ 25 mls/hr UNSCH PRN IV 04/21/17 21:15 Miscellaneous Information 1 Q361D XX 04/21/17 21:15 04/22/17 03:07 (Chlorhexidine 2% Cloth) Taper DAILY@04 TOP 04/22/17 04:00 04/18/18 03:59 (Chlorhexidine 2% Cloth) 3 pack UNSCH PRN TOP 04/21/17 21:15 (Apresoline Inj) 10 mg Q6H PRN IV PUSH 04/21/17 21:30 04/23/17 01:05 (Zofran Inj) 4 mg Q8HR PRN IV PUSH 04/22/17 17:00 (Roxicodone) 5 mg Q4H PRN PO 04/23/17 23:30 04/28/17 16:04 (Roxicodone) 10 mg Q4H PRN PO 04/23/17 23:30 05/17/17 09:11 (Dilaudid Pf Inj) 0.2 mg Q4H PRN IV PUSH 04/23/17 23:30 04/28/17 08:49 Sodium Chloride 1,000 ml @ 0 mls/hr Q0M PRN OTHER 04/24/17 06:57 (Heparin Inj) 8,000 units UNSCH PRN IV FLUSH 04/24/17 07:00 Sodium Chloride 1,000 ml @ 200 mls/hr Q5H PRN IV 04/24/17 06:57 Sodium Chloride 1,000 ml @ 0 mls/hr Q0M PRN OTHER 04/24/17 06:57 (Mannitol Inj) 12.5 gm UNSCH PRN IV 04/24/17 07:00 Albumin Human 100 ml @ 60 mls/hr UNSCH PRN IV 04/24/17 07:00 04/24/17 09:22 (NS Flush) 5 ml UNSCH PRN IV FLUSH 04/24/17 07:00 (Heparin Inj) UNSCH PRN .XX 04/24/17 07:00 05/05/17 11:12 (Gentamicin Inj) 20 mg UNSCH PRN OTHER 04/24/17 07:00 05/05/17 11:13 (Zofran Inj) 4 mg UNSCH PRN IV PUSH 04/24/17 07:00 (Tylenol) 650 mg UNSCH PRN PO 04/24/17 07:00 05/05/17 08:21 (Benadryl) 25 mg UNSCH PRN PO 04/24/17 07:00 05/03/17 22:54 (Nitrostat Sl) 0.4 mg UNSCH PRN SL 04/24/17 07:00 (Catapres) 0.1 mg UNSCH PRN PO 04/24/17 07:00 05/02/17 23:38 (Gelfoam 12 Mm/7 Mm Top) 1 foam UNSCH PRN TOP 04/24/17 07:00 (D50w (Vial) Inj) 50 ml UNSCH PRN IV PUSH 04/25/17 08:15 (Glucagon Inj) 1 mg UNSCH PRN OTHER 04/25/17 08:15 (NovoLOG SUPPLEMENTAL SCALE) 1 Q4H SQ 04/25/17 09:00 05/17/17 09:12 (Epogen Inj) 10,000 units UNSCH PRN IV PUSH 04/25/17 13:00 05/05/17 11:12 Cefazolin Sodium 2000 mg/Sodium Chloride 120 ml @ 240 mls/hr SPORTS OFFICIAL IV 04/30/17 14:30 05/01/17 12:02 (Benadryl) 25 mg Q4H PRN PO 05/01/17 10:00 (NS Flush) UNSCH PRN IV FLUSH 05/01/17 12:00 (Heparin Inj) UNSCH PRN IV FLUSH 05/01/17 12:00 (Flomax) 0.4 mg HS PO 05/03/17 21:00 05/16/17 20:47 (Norvasc) 10 mg DAILY PO 05/04/17 09:00 05/17/17 09:10 (Levemir Inj) 10 units Q12HR SQ 05/05/17 21:00 05/17/17 09:12 (Protonix Inj) 40 mg Q12HR IV PUSH 05/07/17 09:00 05/17/17 09:10 (Heparin Inj) 5,000 units Q12H SQ 05/09/17 22:00 05/17/17 09:16 (Lipitor) 40 mg HS PO 05/09/17 21:00 05/16/17 20:47 (Aspirin Chew) 81 mg DAILY CHEW 05/10/17 14:00 05/17/17 09:11 (Asacol Hd Dr) 800 mg Q8HR PO 05/10/17 16:30 05/17/17 05:16 (Tylenol) 650 mg Q4H PRN PO 05/12/17 04:30 05/12/17 17:03 Sodium Chloride 1,000 ml @ 100 mls/hr Q10H IV 05/13/17 14:15 05/16/17 02:15 (Vaishali Barton MD R1) Urinary Catheter: No (Vaishali Barton MD R1) Vascular Central Line Catheter: No Line: Central Venous Catheter Side: Right Location: Jugular (Vaishali Barton MD R1) A/P Assessment and Plan Patient is 67 year old male with a past medical history significant of HTN and DM presented to ED via EVAC due to a one week history of decreased PO intake. Patient found to be altered, hypertensive with blood glucose greater than 900, elevated anion gap of 29, beta hydroxy of 11.9. Patient admitted for management of DKA. Transitioned to SQ insulin on 04/22. On 04/23 patient was found to have significant transaminitis as well as worsening renal function. GI and Nephrology consulted. Vascular was consulted when no pulses (femoral, popliteal, dorsalis pedis or post tibial) were palpable on right. Ultrasound revealed complete occlusion of blood flow to the right leg; patient was immediately taken to the OR for right leg clot fasciotomy thrombectomy. On 04/24 patient was found to have worsening renal function with creatinine of 4.85 and a potassium of 7.1. Right internal jugular vascular cath was placed and patient underwent hemodialysis. Patient was started on hemodialysis MWF on 04/24. Labs were indicative of rhabdomyolysis. Right above knee amputation with wound vac was performed on 04/24. Received one blood transfusion following the procedure. S /P closure of amputation site on 04/27 with drain removal 04/29. Critical Care signed off 04/28. Palliative care consulted 04/29 to further elucidate goals of care. PermCath placed 05/01 for continued outpatient dialysis. Urology consulted 05/04 to assist with urinary retention. Follow up with urology as outpatient. Patient was treated for UTI with Levaquin as well as a fungal infection in the urine (Fluconazole from 05/03 to 05/07). On hemodialysis M/F as of 05/07. On 05/07, bright red blood per rectum noted. Stool studies including C- diff sent. Hbg dropped to 6.9 and patient received 2 units PRBC GI was consulted and colonoscopy on 05/08 showed ulcers throughout the colon - biopsies pending. CT abdomen showed bilaterally occluded internal iliac arteries and global atherosclerosis - vascular recommending medical management with Lipitor and ASA. Heparin was restarted on 05/09 with no acute bleeding to date. Fevers in the mornings on 05/12 and 05/13; afebrile since 05/14 Last elevated temp is 100.6 on 05/17. * Neuro: Intermittent AMS - RESOLVED; Dementia * Initially presented with altered mental status, confusion. Has resolved and patient oriented 3 with no signs of delirium. * No previous CVA history. * Triglycerides 200, cholesterol 155, LDL 102, HDL 12.6, A1c 17.7. * Rehab at discharge. Patient has been accepted at [place]. * CV: History of CABG remotely; Intermittent bradycardia - RESOLVED; HTN; critical limb ischemia s/p amputation * Echo 04/24 showing EF 60-65%, normal LV size, no noted wall motion abnormalities. * Vascular surgery performed right leg clot fasciotomy thrombectomy on 04/23. * Right above knee amputation with wound vac was performed on 04/24. * Amputation closure performed 04/26. * Amlodipine increased to 10mg on 05/04 as patient's hypertension persisted. * CTA showing bilaterally occluded internal iliac arteries and global atherosclerosis - will manage medically with Lipitor and aspirin. * GI: Acute transaminitis - RESOLVED; difficulty swallowing - RESOLVED; hyperammonemia - RESOLVED; acute lower GI bleed - RESOLVED * LFTs were normal admission, then became significantly elevated most likely secondary to rhabdomyolysis. Returned to baseline following IV fluids and amputation of the right leg above the knee. * US Liver on 04/24 showed findings consistent with hepatic steatosis versus medical liver disease. Cholelithiasis noted. * Hepatitis panel nonreactive. * Patient with bloody bowel movement on 05/07 - colonoscopy on 05/08 showing ulcers in the colon. Pathology report reads: All of the colon biopsies show acute inflammation and features suggestive of ulceration. Substantial areas of mucosal architectural distortion are noted suggesting some degree of chronicity. The inflammatory background suggests ischemic colitis; however, Inflammatory bowel disease and chronic infectious colitis cannot be excluded from the differential diagnosis. * CT abdomen/pelvis 05/08: atherosclerotic change throughout, no aneurysm, occlusion of bilateral internal iliac arteries. * Started Heparin BID on 05/09 due to vaso-occlusive episode that lead to his amputation. H&H has been stable and will monitor closely. * FEN/RENAL: acute renal failure complicated by chronic kidney disease; urinary retention - RESOLVED; hypoalbuminemia; hypocalcemia; rhabdomyolysis - RESOLVED. * Creatinine elevated on admission at 3.42. Worsened after patient went into rhabdo. Nephrology was consult and patient has been on hemodialysis MWF since - spaced to on 05/07. Creatine trending up. Nephrology managing. * Renal US negative. * CK normalized 05/05. * Attempted to DC Montalvo on 05/02 - required straight cath over next 24 hours due to inability to urinate - started Flomax on 05/03. Continued urinary retention on 05/04 required reinsertion of Montalvo. * Urology consulted; recommended 7 days with Montalvo before another trial (trial due 05/11/2017). Continue Flomax and follow up with urology as outpatient. * Montalvo DC'ed on 05/11. Montalvo removed on 05/12. Appropriate urine output. * ID: UTI complicated by male gender, race, urethral injury. Leukocytosis 04/29; febrile and radiographic evidence of pneumonia. * Found to have UTI on admission with cultures growing Klebsiella, group B strep. Treated with Levaquin for 10 day course. * Leukocytosis on admission resolved but recurred 04/29, repeat UA at that time grew Joslyn. Patient started on Diflucan on 05/03. Leukocytosis resolved as of * Diflucan DCed per nephrology 05/07 (05/03-05/07). * Febrile and CXR with evidence of mild bibasilar infiltrates on 05/12. Started on Zosyn, Azithromycin and Vancomycin. * Febrile and CXR with evidence of left lower lung consolidation or pleural effusion, only seen on posterior lateral view on 05/13. Held vancomycin per nephrology. * UA negative on 05/13. * Blood culture negative to date. Sputum culture negative. Legionella and pneumococcus urinary antigens negative. UA negative. * CXR unchanged. Fevers likely due to atelectasis. Patient encouraged to use incentive spirometer. Antibiotics stopped 05/15. * HEME: rhabdomyolysis; acute blood loss anemia; anemia of chronic disease; acute lower GI bleed - RESOLVED. * Goal Hgb > 7. * Nephrology started Epoetin 10,000 units with dialysis. * Status post 2 units of packed red blood cells following amputation on 04/24, 1 unit on 05/01. * H/H trended after GI bleed on 05/07 - dropped to 6.9 and received 2 units PRBC 's with response to 7.8 - will continue to trend. * Monitor CBC, PRBCs for Hgb <7 or symptoms. * ENDO: Diabetes * Hyperglycemia: HHS on admission, resolved on 04/22 but insulin drip resumed on 04/24. Discontinued insulin drip and started SSI on 04/25. * A1c 17.7. * critical care educator, thread puller consulted. * TSH wnl. * Patient now cleared for regular diet, increased Levemir to 10 units BID, will continue and monitor closely. * PROPHYLAXIS/LINES: * Heparin 5000U sq q12h. * PermCath 05/01/17. Discharge Planning Pending nephrology clearance. (Vaishali Barton MD R1) Attending Attestation Patient seen and examined, discussed with Dr Barton. I agree with assessment and management as documented and discussed with me. Pt reports discussing rehab with his , and is now amenable to going. He reports pain in his leg is controlled. Pt with isolated temperature of 100.6. No new symptoms. CXR negative. UCx, BloodCx pending- will follow. Suspect atelectasis. Discharge to [place] today. Greater than 30 minutes spent by me personally counselling and coordinating care at discharge. (Judy Dale MD) Problem List: (1) Hyperammonemia ICD Codes: E72.20 - Disorder of urea cycle metabolism, unspecified Status: Resolved (2) Compartment syndrome ICD Codes: T79.A0XA - Compartment syndrome, unspecified, initial encounter Status: Resolved (3) Diabetes mellitus ICD Codes: E11.9 - Diabetes mellitus Status: Acute (4) Hypertension ICD Codes: I10 - Hypertension Status: Chronic (5) Acute renal failure ICD Codes: N17.9 - Acute kidney failure, unspecified Status: Resolved (6) Hypernatremia ICD Codes: E87.0 - Hyperosmolality and hypernatremia Status: Resolved (7) Hyperkalemia ICD Codes: E87.5 - Hyperkalemia Status: Resolved (8) UTI (urinary tract infection) ICD Codes: N39.0 - Urinary tract infection, site not specified Status: Resolved (9) Transaminitis ICD Codes: R74.0 - Nonspecific elevation of levels of transaminase and lactic acid dehydrogenase [LDH] Status: Resolved (10) Pneumonia ICD Codes: J18.9 - Pneumonia, unspecified organism Status: Acute (11) Anemia ICD Codes: D64.9 - Anemia, unspecified (12) Atelectasis ICD Codes: J98.11 - Atelectasis Status: Acute (Vaishali Barton MD R1) Problem Qualifiers (1) Acute renal failure: Qualified Codes: N17.9 - Acute kidney failure, unspecified (2) UTI (urinary tract infection): Qualified Codes: N10 - Acute pyelonephritis Vaishali Barton MD R1 May 17, 2017 12:02 Judy Dale MD May 18, 2017 08:14
--- NOTE | 2017-05-17 15:03 | PD.CAR.PN ---
CVT Progress Note Subjective/Hospital Course: 04/24/2017 Patient with total occlusion of the flow to her right leg underwent yesterday thromboembolectomy of the iliac and femoral systems and revascularization of the leg with fasciotomy Today while the patient has flow the leg from just above the knee down is purple and discolored It is insensate and patient has no motoric activity Muscles are discolored grayish appearing and devitalized At this point were essentially perfusing a devitalized extremity due to the length of time of occlusion of the blood flow Patient is now on dialysis consequently producing massive amounts of creatinine kinase with a massive breakdown of the muscle and of course resulting hyperkalemia and metabolic derangements I discussed this with his and this patient needs urgent above-knee amputation We will go ahead with surgery today considering that this is a nonviable extremity 04/25/2017 Patient underwent yesterday an urgent right above-knee guillotine staged amputation for worsening systemic acidemia/metabolic acidosis renal failure. He was found to have massive amount of muscle tissue which was clearly flushing out causing myoglobinuria and all the consequences of the same Patient now doing better systemically Wound VAC drainage is serosanguineous Once the swelling of the thigh goes down the bit possibly tomorrow will take patient back to the operating room to close the amputation site Patient's hemoglobin dropped to 6.9 this morning yet I was not informed about the despite the fact that have operated on this patient just few hours before Grateful for Dr. Moulton and his team for expert management Likely will take patient to the operating room tomorrow to close the stump 04/27/2017 Patient status post second stage above-knee amputation of the right leg with closure of the stump Area is clean KANCHAN drainage has decreased We will leave KANCHAN for another day and then remove it Patient doing systemically somewhat better Nothing to add to care at this time and hemoglobin remains stable 04/28/2017 Stump is clean and dry dressing is intact KANCHAN drainage about 130 cc in the last 24 hours We will likely DC KANCHAN tomorrow Patient may transfer to floor from my point 04/29/2017 Incision clean and dry DC KANCHAN Change dressings daily Stitches will stay in for about 3 weeks total in the face of delayed healing and ischemia 04/22/2017 Left AKA stump healing very nicely Incision is clean and dry Do not remove stitches yet considering delayed healing and comorbidities 05/17/2017 Stump is clean and dry and incision in the groin is well-healed Stitches have been removed yesterday and some today Patient can be transferred to rehab anytime and does not need follow-up in my office Objective: Vital Signs Date Time Temp Pulse Resp B/P (MAP) Pulse Ox O2 Delivery O2 Flow Rate FiO2 05/17/17 12:00 99.9 82 17 155/69 (97) 97 05/17/17 10:23 18 05/17/17 08:00 99.5 84 18 140/63 (88) 98 05/17/17 04:20 100.6 89 17 157/71 (99) 99 05/17/17 00:00 97.4 86 16 181/80 (113) 100 05/16/17 19:30 98.7 91 15 162/72 (102) 99 05/16/17 16:00 98.5 87 18 141/65 (90) 99 Labs: Laboratory Tests Test 05/17/17 04:46 White Blood Count 5.9 TH/MM3 (4.0-11.0) Red Blood Count 2.89 MIL/MM3 (4.50-5.90) Hemoglobin 8.6 GM/DL (13.0-17.0) Hematocrit 26.0 % (39.0-51.0) Mean Corpuscular Volume 90.0 FL (80.0-100.0) Mean Corpuscular Hemoglobin 29.6 PG (27.0-34.0) Mean Corpuscular Hemoglobin Concent 32.9 % (32.0-36.0) Red Cell Distribution Width 16.6 % (11.6-17.2) Platelet Count 345 TH/MM3 (150-450) Mean Platelet Volume 7.5 FL (7.0-11.0) Blood Urea Nitrogen 34 MG/DL (7-18) Creatinine 3.12 MG/DL (0.60-1.30) Random Glucose 130 MG/DL (74-106) Calcium Level 8.3 MG/DL (8.5-10.1) Sodium Level 141 MEQ/L (136-145) Potassium Level 5.0 MEQ/L (3.5-5.1) Chloride Level 112 MEQ/L (98-107) Carbon Dioxide Level 21.1 MEQ/L (21.0-32.0) Anion Gap 8 MEQ/L (5-15) Estimat Glomerular Filtration Rate 20 ML/MIN (>89) Result Diagram: 05/17/17 0446 05/17/17 0446 Jean Pierre Auguste MD May 17, 2017 15:03
== END 2017-05-17 15:36 | DRG 616 ==
LOC: NEDAMB 15:26 → NEDA 20:25 → N03A 22:29 → N03B 04-28 16:29 → HOCA 04-30 12:35 → N06B 05-09 12:44
PROVIDERS: ADMIT Family Medicine; ATTEND Family Medicine
PROC: 0Y6C0Z3 Detachment at Right Upper Leg, Low, Open Approach (ICD-10-PCS; principal; 2016-04-24)
PROC: 04CK0ZZ Extirpation of Matter from Right Femoral Artery, Open Approach (ICD-10-PCS; 2017-04-23)
PROC: 04CC0ZZ Extirpation of Matter from Right Common Iliac Artery, Open Approach (ICD-10-PCS; 2017-04-23)
PROC: 04CH0ZZ Extirpation of Matter from Right External Iliac Artery, Open Approach (ICD-10-PCS; 2017-04-23)
PROC: 04CP0ZZ Extirpation of Matter from Right Anterior Tibial Artery, Open Approach (ICD-10-PCS; 2017-04-23)
PROC: 04CR0ZZ Extirpation of Matter from Right Posterior Tibial Artery, Open Approach (ICD-10-PCS; 2017-04-23)
PROC: 047K0ZZ Dilation of Right Femoral Artery, Open Approach (ICD-10-PCS; 2017-04-23)
PROC: 0KNS0ZZ Release Right Lower Leg Muscle, Open Approach (ICD-10-PCS; 2017-04-23)
PROC: 0KNS0ZZ Release Right Lower Leg Muscle, Open Approach (ICD-10-PCS; 2017-04-23)
PROC: 0KNS0ZZ Release Right Lower Leg Muscle, Open Approach (ICD-10-PCS; 2017-04-23)
PROC: 03HY32Z Insertion of Monitoring Device into Upper Artery, Percutaneous Approach (ICD-10-PCS; 2017-04-23)
PROC: 5A1D70Z Performance of Urinary Filtration, Intermittent, Less than 6 Hours Per Day (ICD-10-PCS; 2017-04-24)
PROC: 02HV33Z Insertion of Infusion Device into Superior Vena Cava, Percutaneous Approach (ICD-10-PCS; 2017-04-24)
PROC: 30233N1 Transfusion of Nonautologous Red Blood Cells into Peripheral Vein, Percutaneous Approach (ICD-10-PCS; 2017-04-25)
PROC: 0Y6C0Z3 Detachment at Right Upper Leg, Low, Open Approach (ICD-10-PCS; 2017-04-26)
PROC: 02HV33Z Insertion of Infusion Device into Superior Vena Cava, Percutaneous Approach (ICD-10-PCS; 2017-05-01)
PROC: 0DBK8ZX Excision of Ascending Colon, Via Natural or Artificial Opening Endoscopic, Diagnostic (ICD-10-PCS; 2017-05-08)
PROC: 0DBL8ZX Excision of Transverse Colon, Via Natural or Artificial Opening Endoscopic, Diagnostic (ICD-10-PCS; 2017-05-08)
PROC: 0DBP8ZX Excision of Rectum, Via Natural or Artificial Opening Endoscopic, Diagnostic (ICD-10-PCS; 2017-05-08)
PROC: 0DBH8ZX Excision of Cecum, Via Natural or Artificial Opening Endoscopic, Diagnostic (ICD-10-PCS; 2017-05-08)
DX: E11.10 Type 2 diabetes mellitus with ketoacidosis without coma (principal); N18.6 End stage renal disease; N17.9 Acute kidney failure, unspecified; G93.41 Metabolic encephalopathy; I74.5 Embolism and thrombosis of iliac artery; J18.9 Pneumonia, unspecified organism; E87.0 Hyperosmolality and hypernatremia; S37.30XA Unspecified injury of urethra, initial encounter; E72.20 Disorder of urea cycle metabolism, unspecified; T79.A21A Traumatic compartment syndrome of right lower extremity, initial encounter; M62.82 Rhabdomyolysis; R82.1 Myoglobinuria; E11.52 Type 2 diabetes mellitus with diabetic peripheral angiopathy with gangrene; I13.11 Hypertensive heart and chronic kidney disease without heart failure, with stage 5 chronic kidney disease, or end stage renal disease; D62 Acute posthemorrhagic anemia; N10 Acute pyelonephritis; K62.5 Hemorrhage of anus and rectum; K50.10 Crohn's disease of large intestine without complications; J98.11 Atelectasis; E87.1 Hypo-osmolality and hyponatremia; B37.41 Candidal cystitis and urethritis; Z78.1 Physical restraint status; E11.22 Type 2 diabetes mellitus with diabetic chronic kidney disease; I25.10 Atherosclerotic heart disease of native coronary artery without angina pectoris; R31.9 Hematuria, unspecified; E86.0 Dehydration; E78.5 Hyperlipidemia, unspecified; R74.0 Nonspecific elevation of levels of transaminase and lactic acid dehydrogenase [LDH]; F17.210 Nicotine dependence, cigarettes, uncomplicated; I95.81 Postprocedural hypotension; E87.5 Hyperkalemia; E83.51 Hypocalcemia; B96.1 Klebsiella pneumoniae [K. pneumoniae] as the cause of diseases classified elsewhere; R47.81 Slurred speech; N28.1 Cyst of kidney, acquired; E87.6 Hypokalemia; R33.9 Retention of urine, unspecified; K44.9 Diaphragmatic hernia without obstruction or gangrene; K21.9 Gastro-esophageal reflux disease without esophagitis; D63.8 Anemia in other chronic diseases classified elsewhere; K80.20 Calculus of gallbladder without cholecystitis without obstruction; R13.12 Dysphagia, oropharyngeal phase; Z66 Do not resuscitate; R00.1 Bradycardia, unspecified; I25.2 Old myocardial infarction; Z95.5 Presence of coronary angioplasty implant and graft; Z95.1 Presence of aortocoronary bypass graft; Z79.4 Long term (current) use of insulin; Z91.14 Patient's other noncompliance with medication regimen
CPT/HCPCS: 36430; 36556; 36558; 36589; 51702; 70450; 71045; 71046; 74174; 76705; 76775; 76937; 77001; 80048; 80053; 80061; 80069; 80074; 80202; 80307; 81001; 82010; 82103; 82140; 82272; 82390; 82550; 82552; 82570; 82784; 82805; 82947; 82948; 82977; 83036; 83516; 83520; 83605; 83690; 83735; 83874; 83880; 84100; 84155; 84156; 84443; 84484; 84550; 85007; 85014; 85018; 85025; 85027; 85240; 85245; 85246; 85247; 85250; 85379; 85384; 85610; 85652; 85670; 85730; 86038; 86077; 86140; 86160; 86255; 86403; 86850; 86870; 86900; 86901; 86920; 86922; 87040; 87070; 87077; 87086; 87186; 87205; 87449; 87493; 87506; 88304; 88305; 88307; 88311; 90935; 93005; 93306; 94150; 94664; 96361; 96374; 96375; 99152; 99153; C1750; C1757; C1769; C1894; C9113; J0131; J0360; J0456; J0610; J0690; J1100; J1170; J1580; J1644; J1815; J1817; J1940; J1956; J2250; J2270; J2370; J2405; J2543; J2710; J2720; J3010; J3370; J3480; J7030; J7042; J7050; J7070; J7512; J7613; P9016; P9045; P9047; Q4081; Q9967